=== PATIENT | male | born 1945 | race Caucasian/White ===

== ENCOUNTER → 2023-07-15 07:26 | Outpatient (REF) | payer MEDICARE, SELFPAY ==
[2023-07-15 08:02] LABS: Urine Albumin Negative (Neg - Trace); Urine Bilirubin Negative (Negative); Urine Character Clear (Clear); Urine Color Yellow; Urine Glucose Negative (Negative); Urine Ketone Negative (Negative); Urine Leukocyte Negative (Negative); Urine Nitrite Negative (Negative); Urine Occult Blood Trace (Negative); Urine Specific Gravity 1.015 (<1.030); Urine Urobilinogen Negative (Neg - 1+)
[2023-07-15 08:17] LABS: Urine Red Blood Cell 0-2 /HPF (0-2); Urine White Cell 0-2 /HPF (0-5)
== END ==
LOC: REG 07:26
PROVIDERS: ATTENDING PHYSICIAN Internal Medicine Geriatric Medicine
DX: Z00.00 Encounter for general adult medical examination without abnormal findings (principal); I10 Essential (primary) hypertension; E78.2 Mixed hyperlipidemia; E03.9 Hypothyroidism, unspecified; K21.00 Gastro-esophageal reflux disease with esophagitis, without bleeding; N40.0 Benign prostatic hyperplasia without lower urinary tract symptoms; E55.9 Vitamin D deficiency, unspecified; Z79.899 Other long term (current) drug therapy; Z12.5 Encounter for screening for malignant neoplasm of prostate; Z13.89 Encounter for screening for other disorder; I35.0 Nonrheumatic aortic (valve) stenosis
CPT/HCPCS: 36415; 81003; 81015

== ENCOUNTER → 2023-07-20 10:58 | Outpatient (REF) | payer MEDICARE, SELFPAY | LOC: RCS 10:58 | PROVIDERS: ATTENDING PHYSICIAN Internal Medicine Geriatric Medicine | DX: Z00.00 Encounter for general adult medical examination without abnormal findings (principal); I10 Essential (primary) hypertension; E78.2 Mixed hyperlipidemia; E03.9 Hypothyroidism, unspecified; K21.00 Gastro-esophageal reflux disease with esophagitis, without bleeding; N40.0 Benign prostatic hyperplasia without lower urinary tract symptoms; E55.9 Vitamin D deficiency, unspecified; Z79.899 Other long term (current) drug therapy; Z12.5 Encounter for screening for malignant neoplasm of prostate; Z13.89 Encounter for screening for other disorder; I35.0 Nonrheumatic aortic (valve) stenosis | CPT/HCPCS: 93306 ==

== ENCOUNTER → 2023-07-24 17:08 | Outpatient (REF) | payer MEDICARE, SELFPAY | LOC: RAD 17:08 | PROVIDERS: ATTENDING PHYSICIAN Internal Medicine Geriatric Medicine | DX: R31.9 Hematuria, unspecified (principal) | CPT/HCPCS: 76770 ==

== ENCOUNTER → 2023-07-31 16:37 | Outpatient (REF) | payer MEDICARE, SELFPAY ==
[2023-07-31 17:47] LABS: Urine Albumin Negative (Neg - Trace); Urine Bilirubin Negative (Negative); Urine Character Clear (Clear); Urine Color Yellow; Urine Glucose Negative (Negative); Urine Ketone Negative (Negative); Urine Leukocyte Negative (Negative); Urine Nitrite Negative (Negative); Urine Occult Blood Trace (Negative); Urine Specific Gravity 1.025 (<1.030); Urine Urobilinogen Negative (Neg - 1+)
[2023-07-31 18:07] LABS: Urine Mucus Moderate; Urine Red Blood Cell 0-2 /HPF (0-2); Urine White Cell None Seen /HPF (0-5)
== END ==
LOC: REG 16:37
PROVIDERS: ATTENDING PHYSICIAN Specialist; FAMILY PHYSICIAN Internal Medicine Geriatric Medicine
DX: N39.0 Urinary tract infection, site not specified (principal)
CPT/HCPCS: 81003; 81015; 87086

== ENCOUNTER → 2023-11-27 09:33 | Outpatient (REF) | payer MEDICARE, SELFPAY | LOC: RAD 09:33 | PROVIDERS: ATTENDING PHYSICIAN Nurse Practitioner Family | DX: M54.2 Cervicalgia (principal) | CPT/HCPCS: 72050 ==

== ENCOUNTER → 2023-12-10 09:17 | Outpatient (REF) | payer MEDICARE, SELFPAY | LOC: RAD 09:17 | PROVIDERS: ATTENDING PHYSICIAN Nurse Practitioner Family; FAMILY PHYSICIAN Internal Medicine Geriatric Medicine | DX: R09.89 Other specified symptoms and signs involving the circulatory and respiratory systems (principal) | CPT/HCPCS: 93880 ==

== ENCOUNTER → 2023-12-12 11:24 | Outpatient (REF) | payer MEDICARE, SELFPAY | LOC: RAD 11:24 | PROVIDERS: ATTENDING PHYSICIAN Internal Medicine Endocrinology, Diabetes & Metabolism; FAMILY PHYSICIAN Internal Medicine Geriatric Medicine | DX: E04.2 Nontoxic multinodular goiter (principal) | CPT/HCPCS: 76536 ==

== ENCOUNTER → 2023-12-20 07:32 | Outpatient (REF) | payer MEDICARE, SELFPAY ==
[2023-12-20 08:47] LABS: ALT (SGPT) 25 U/L (0-50); AST (SGOT) 27 U/L (17-59); Albumin 4.6 g/dl (3.5-5.0); Alkaline Phosphatase 100 U/L (38-126); Blood Urea Nitrogen 20 mg/dl (9-20); Calcium 9.9 mg/dl (8.4-10.2); Carbon Dioxide 28 mmol/L (22-30); Chloride 101 mmol/L (98-107); Glucose 102 mg/dl (70-99); Potassium 4.7 mmol/L (3.5-5.1); Sodium 138 mmol/L (135-145); Total Protein 6.9 g/dl (6.3-8.2); eGFR > 60.00
[2023-12-20 09:12] LABS: TSH 1.45 uIU/ml (0.47-4.68)
== END ==
LOC: REG 07:32
PROVIDERS: ATTENDING PHYSICIAN Internal Medicine Endocrinology, Diabetes & Metabolism; FAMILY PHYSICIAN Internal Medicine Geriatric Medicine
DX: E04.2 Nontoxic multinodular goiter (principal)
CPT/HCPCS: 36415; 80053; 84443

== ENCOUNTER 2024-01-18 05:56 | Emergency (ER) | payer MEDICARE, SELFPAY ==
[2024-01-18 06:02] VITALS: BP 146/89
[2024-01-18 06:45] VITALS: BP 139/83
--- NOTE | 2024-01-18 07:20 | ED.GENMED ---
History of Present Illness
General
Chief Complaint: Back Pain
Source: patient and spouse
Time Seen by Provider: 01/18/24 07:07
History of Present Illness
History of Present Illness:
78-year-old male presents to the emergency room complaining of neck pain and pain in the occipital region of his head. Patient's been having symptoms for the past couple months. He has been evaluated by his primary care provider and had an MRI
performed 2 days ago. He does not have the results of the MRI yet. Patient was prescribed a course of steroids which did help for a period of time but now that he is off the steroids the pain has returned. He has been using NSAIDs without
improvement. Patient's states he seemed to have trouble walking at times but he denies any focal weakness numbness or tingling. He has no bowel or bladder dysfunction.
Past History
Past History
ED Past Medical History: None
ED Past Surgical History: None
Social History
Living: with family
Phy Exam
Physical Exam
Physical Exam:
General: Awake, Alert, Oriented X3. No acute distress.
Vitals: unremarkable
Head: Atraumatic
Eyes: Pupils equal, EOMI
Throat: Airway intact, no exudates
Neck: Trachea midline
Lungs: Clear and equal b/l
Heart: Regular rate, no murmurs
Abd: Soft, Nontender, No pulsatile mass
Neuro: Cranial nerves intact, muscle strength equal bilaterally, reflexes equal bilaterally. Not particularly hyperreflexic
Skin: Warm, dry, no rash
Extremities: pulses equal b/l, no edema
Course
Orders/Labs/Results
Orders:
Orders
01/18/24 07:36
CT Head W/o Iv Contrast Urgent
Comment:
Reason For Exam: neck/occipital pain
01/18/24 08:54
Gabapentin [Neurontin] 100 mg PO NOW STA
01/18/24 09:03
Oxycodone [Roxicodone] 5 mg PO NOW STA
Vital Signs
Initial and Last Documented VS:
Initial Vital Signs
Temp Pulse Resp BP Pulse Ox
98 F 81 16 146/89 95
01/18/24 06:02 01/18/24 06:02 01/18/24 06:02 01/18/24 06:02 01/18/24 06:02
Last Documented Vital Signs
Temp Pulse Resp BP Pulse Ox
98 F 69 16 146/88 96
01/18/24 06:02 01/18/24 08:21 01/18/24 08:21 01/18/24 08:21 01/18/24 08:21
MDM/Problems Addressed
Differential Diagnosis Includes:
Cervical radiculopathy, degenerative joint disease of the neck, muscle spasm
MDM/Problems Addressed:
Patient presents with neck and posterior head pain. CT obtained to exclude space-occupying lesion. CT does not show any significant abnormalities. Physical exam does not suggest any cord compression. Patient will be started on gabapentin as well
as a steroid taper. He has an appointment with orthopedics next week.
*Radiology
Radiology exam reviewed: radiology read reviewed
*Pulse Oximetry
Patient hypoxic: no
*Critical Care Note
Total Time (30-74mins, 75-104mins- exclusive of procedures): Not Applicable
ED Attending Note
-
Portions of this chart may have been created with voice recognition software.� Occasional wrong word or��sound alike� substitutions may have occurred due to the inherent limitations of voice recognition software.
Discharge Plan
Departure
Patient Disposition: Home (Routine Discharge)
Date of Disposition: 01/18/24
Time of Disposition: 09:11
Patient with high blood pressure during this ER visit?: Yes
Discharge Problem:
Acute neck pain
Instructions: Neck pain, BLOOD PRESSURE
Prescriptions:
New
gabapentin 100 mg capsule
100 mg PO TID Qty: 90 0RF
oxycodone 5 mg tablet
5 mg PO Q6H PRN (Reason: Pain) Qty: 12 0RF
methylprednisolone [Medrol (Derrick)] 4 mg tablets,dose pack
See Rx Instructions .ROUTE .COMPLEX Qty: 21 0RF
Rx Instructions:
orally per package directions
No Action
atorvastatin 20 mg Tablet
20 mg PO DAILY
Referrals:
Romulo Velazquez MD [Family Provider] -
Interventions
Interventions:
*Risk Screen - Suicide Last Done: 01/18/24 07:13
*General Assessment Last Done: 01/18/24 08:21
*Neglect/Abuse Screening Last Done: 01/18/24 07:13
ED- Fall Risk Assessment Last Done: 01/18/24 08:21
*ED COVID-19 Vaccine History Last Done: 01/18/24 08:24
*Nursing Disposition Last Done: 01/18/24 09:42
ED-Musculoskeletal Assessment Last Done: 01/18/24 07:13
Discharge Date and Time
Discharge Date/Time: 01/18/24 09:42
Print Language: THAI
[2024-01-18 08:20] VITALS: BMI 22.4
[2024-01-18 08:21] VITALS: BP 146/88
[2024-01-18] MEDS: ROXICODONE 5 MG PO (09:06)
[2024-01-18] MEDS: NEURONTIN 100 MG PO (09:06)
== END 2024-01-18 09:42 | disposition home or self-care (01) ==
LOC: EMR 05:56
PROVIDERS: EMERGENCY PHYSICIAN Emergency Medicine; FAMILY PHYSICIAN Internal Medicine Geriatric Medicine
DX: M54.2 Cervicalgia (principal); R51.9 Headache, unspecified; R26.2 Difficulty in walking, not elsewhere classified; R03.0 Elevated blood-pressure reading, without diagnosis of hypertension
CPT/HCPCS: 99284; 70450

== ENCOUNTER 2024-01-25 18:18 | Inpatient (IN) | payer MEDICARE, SELFPAY ==
[2024-01-25] VITALS (13 sets, daily range): BP systolic 113–151; BP diastolic 65–85; PULSE 58–64; O2SAT 95; BMI 21.2; BMI 20.5
[2024-01-25 14:27] LABS: % Basophils 0.5 % (0-2); % Eosinophils 0.5 % (0-6); % Immature Granulocytes 0.7 % (0-0.5); % Lymphocytes 8.3 % (20.5-51.1); % Monocytes 5.2 % (1.7-9.3); % Neutrophils 84.8 % (42.2-75.2); ALT (SGPT) 18 U/L (0-50); AST (SGOT) 18 U/L (17-59); Absolute Basophils 0.1 10^3/uL (0-0.2); Absolute Eosinophils 0.1 10^3/uL (0-0.7); Absolute Immature Granulocytes 0.1 10^3/uL (0-0.05); Absolute Lymphocytes 0.9 10^3/uL (1.2-3.4); Absolute Monocytes 0.6 10^3/uL (0.1-0.6); Absolute Neutrophils 9.4 10^3/uL (1.4-6.5); Albumin 4.8 g/dl (3.5-5.0); Alkaline Phosphatase 62 U/L (38-126); Blood Urea Nitrogen 26 mg/dl (9-20); Calcium 10.3 mg/dl (8.4-10.2); Carbon Dioxide 28 mmol/L (22-30); Chloride 90 mmol/L (98-107); Glucose 160 mg/dl (70-99); Hematocrit 45.7 % (39.0-52.0); Hemoglobin 16.8 g/dL (13.0-18.0); Mean Corp Hgb Conc. 36.8 g/dL (33.0-37.0); Mean Corpuscular Hgb 33.1 pg (27.0-31.0); Mean Corpuscular Volume 90.1 fL (80.0-94.0); Mean Platelet Volume 8.9 fL (7.4-10.4); Nucleated Red Blood Cells % 0 % (-); Platelet Count 277 10^3/uL (130-400); Potassium 4.7 mmol/L (3.5-5.1); Red Blood Cell Count 5.07 10^6/uL (4.70-6.10); Red Cell Dist. Width 12.1 % (11.5-14.5); Sodium 132 mmol/L (135-145); Total Bilirubin 1.3 mg/dl (0.2-1.3); Total Protein 7.1 g/dl (6.3-8.2); eGFR > 60.00
--- NOTE | 2024-01-25 14:42 | ED.GENMED ---
History of Present Illness
General
Chief Complaint: Weakness
Source: patient and spouse
Exam Limitations: none
Time Seen by Provider: 01/25/24 14:41
Nursing documentation reviewed up to this point in time: agreed with
History of Present Illness
History of Present Illness:
The patient is an 78-year-old man with a past medical history of elevated cholesterol and chronic neck pain for which he is followed by orthopedics and due to have a steroid injection in his neck this coming up week, who is brought in by his
for about 2 weeks of generalized weakness and unsteadiness. His reports this is extremely unusual for him as she reports they generally walk over 3 miles a day and lift weights about 3 times per week. They deny any specific fever, cough,
chest pain, or shortness of breath. They report they have tested him for COVID twice and the tests have been negative. He denies any specific areas of pain with the exception of his neck which he has had for several weeks to months. His
reports she was concerned because this morning he was extremely unsteady and nearly fell down to the ground. Patient reports that when he stands up he feels lightheaded but has not yet passed out. His is concerned he may be dehydrated. His
reports that he was recently given gabapentin and oxycodone for his neck pain and is wondering if this is causing him to be more unsteady and weak. Patient also reports feeling previously nauseous early this morning and using 1 dose of Zofran.
Patient also reports he has had a decreased appetite and does not know why. Patient just had a CT head done about a week ago for similar symptoms and there was no acute findings found. Contrary to triage note, patient denies any blurred vision.
Past History
Past History
ED Past Medical History: Hypothyroidism
ED Past Surgical History: Other
Social History
Tobacco: Other
Alcohol: Other
Drug: None
Personal:
Living: with family
Employment: Other
Family History
Family History: Other
Review of Systems
Review of Systems
Allergies reviewed?: Yes
Other source history: family
All Other Systems: ROS reviewed and negative except as documented in HPI and ROS
Constitutional: Reports fatigue
EENT: Reports no symptoms
Respiratory: Reports no symptoms
Cardiac: Reports syncope (Presyncopal)
ABD/GI: Reports nausea and anorexia
: Reports no symptoms
Musculoskeletal: Reports neck pain
Skin: Reports no symptoms
Neurological: Reports dizzy (Unsteady)
Endocrine: Reports no symptoms
Hematologic/Lymphatic: Reports no symptoms
Psychiatric: Reports no symptoms
Phy Exam
Physical Exam
Physical Exam:
Physical Exam
General: no apparent distress, not acutely ill
Neck: supple. no meningeal signs. normal psoterior pharynx
Heart: s1/s2 regular rate and rhythm, no murmur. equal radial pulses.
Lungs: no acute respiratory distress. clear bilaterally
Abdomen: normal bowel sounds. not tender. no CVAT
Neuro: alert and orientedx2. 5 out of 5 strength in all extremities without drift. Mild difficulty with [id number] but able to do it successfully
Skin: no rash
Psychiatric: well kept. interactive and cooperative
Extremities: no edema. no calf tenderness. negative homans. good distal pulses
Course
Orders/Labs/Results
Orders:
Orders
01/25/24 14:02
Electrocardiogram (*1) Urgent
Reason for Study: Chest Pain
EKG- Treatment ONCE
01/25/24 14:04
Complete Blood Count/With Diff Urgent
Comprehensive Metabolic Panel Urgent
TSH Urgent
Comment: ADD ON
01/25/24 15:17
Add On- LAB Urgent
Tests Added?: TSH
01/25/24 15:18
Orthostatic VS- Treatment ONCE
Pt Eval And Treat Urgent
Activity Level: Out of Bed-Early Mobility
08/31/24 15:23
Urinalysis Reflex To Culture Urgent
Date Specimen was Collected: 01/25/24
Time Specimen was Collected: 15:23
Urine Microscopic Reflex Cult Urgent
01/25/24 15:26
0.9% Sodium Chloride 1000 ml [Nss] 1,000 ml IV BOLUS
CR Chest - 2 Views Urgent
Comment:
Reason For Exam: fatigue
Abnormal Lab Results
01/25/24 01/25/24
14:04 15:23
WBC 11.0 H 10^3/uL
(4.8-10.8)
MCH 33.1 H pg
(27.0-31.0)
Abs Immat Gran (auto) 0.1 H 10^3/uL
(0-0.05)
Absolute Neuts (auto) 9.4 H 10^3/uL
(1.4-6.5)
Absolute Lymphs (auto) 0.9 L 10^3/uL
(1.2-3.4)
Immature Gran % 0.7 H %
(0-0.5)
Neutrophils % 84.8 H %
(42.2-75.2)
Lymphocytes % 8.3 L %
(20.5-51.1)
Sodium 132 L mmol/L
(135-145)
Chloride 90 L mmol/L
(98-107)
BUN 26 H mg/dl
(9-20)
Glucose 160 H mg/dl
(70-99)
Calcium 10.3 H mg/dl
(8.4-10.2)
Urine Bilirubin 1+ A
(Negative)
Urine Bacteria (Reflex) Few A
(Negative)
Urine Albumin (Reflex) 1+ A
(Neg - Trace)
01/25/24 14:04
01/25/24 14:04
Vital Signs
Initial and Last Documented VS:
Initial Vital Signs
Temp Pulse Resp BP Pulse Ox
97.7 F 63 20 138/74 98
01/25/24 13:58 01/25/24 13:58 01/25/24 13:58 01/25/24 13:58 01/25/24 13:58
Last Documented Vital Signs
Temp Pulse Resp BP Pulse Ox
97.7 F 52 16 138/74 96
01/25/24 13:58 01/25/24 14:15 01/25/24 14:15 01/25/24 13:58 01/25/24 14:15
MDM/Problems Addressed
Differential Diagnosis Includes:
Acute dehydration, UTI, COVID, pneumonia, malignancy, CVA
MDM/Problems Addressed:
Patient presents with acute generalized weakness and unsteadiness
*Radiology
Radiology exam reviewed: preliminary read by ED provider (Chest x-ray reviewed by me. No acute disease)
*Pulse Oximetry
Patient hypoxic: no
*EKG
Interpreted by ED Provider?: Yes
Interpretation: abnormal
Comparison EKG: no comparison EKG present
Rate: normal
Rhythm: sinus
[place]: left axis deviation
Interval: normal interval
QRS Pattern: normal QRS
Ischemia: non-specific ST changes
*M[place] Interpretation
Rate: normal
Interpretation: normal
Rhythm: sinus
*Critical Care Note
Total Time (30-74mins, 75-104mins- exclusive of procedures): Not Applicable
Data Reviewed
Review of Other/Old Records Reveals: Radiology Studies (CT head reviewed from 01/18/2024 which shows no acute disease)
Source: patient and spouse
Patient Management
Social determinants of health affecting care: Living situation and Strong social support
Discussion with other providers: Hospitalist and Other (Physical therapy)
Escalation/DeEscalation of care consider admission/obs:
Given patient's ongoing unsteadiness on his feet and ataxia, which is very different than his baseline, decision made to admit the patient for further neurological workup.
Update Note
Update Note:
5:00 PM patient's lab work suggest some degree of dehydration, however, there is no sign of pneumonia or urinary tract infection. Patient remains unsteady with walking. Physical therapy agrees that he is not safe walking independently, which is a
definite change from his baseline. Patient does had a CT head done about a week ago which showed no acute disease. I feel patient will likely need an MRI brain and a neurological consult.
ED Attending Note
-
Portions of this chart may have been created with voice recognition software.� Occasional wrong word or��sound alike� substitutions may have occurred due to the inherent limitations of voice recognition software.
Discharge Plan
Departure
Patient Disposition: Admit
Date of Disposition: 01/25/24
Time of Disposition: 17:06
Admit to: Med/Surg
Presentation/result/management discussed w/ accepting MD/DO: Hospitalist
Patient with high blood pressure during this ER visit?: Yes
Condition: Good
Covid-19: Not Applicable
Discharge Problem:
Generalized weakness, Acute anorexia, Acute dehydration, Acute ataxia
Prescriptions:
No Action
atorvastatin 20 mg Tablet
20 mg PO DAILY
gabapentin 100 mg capsule
100 mg PO TID Qty: 90 0RF
oxycodone 5 mg tablet
5 mg PO Q6H PRN (Reason: Pain) Qty: 12 0RF
methylprednisolone [Medrol (Derrick)] 4 mg tablets,dose pack
See Rx Instructions .ROUTE .COMPLEX Qty: 21 0RF
Rx Instructions:
orally per package directions
Referrals:
Romulo Velazquez MD [Family Provider] -
Interventions
Interventions:
*Risk Screen - Suicide Last Done: 01/25/24 13:58
*General Assessment Last Done: 01/25/24 13:58
*Neglect/Abuse Screening Last Done: 01/25/24 13:58
Discharge Date and Time
Print Language: TANZANIAN
[2024-01-25 15:36] LABS: Urine Albumin 1+ (Neg - Trace); Urine Bilirubin 1+ (Negative); Urine Character Slightly Cloudy (Clear); Urine Color Yellow; Urine Glucose Negative (Negative); Urine Ketone Negative (Negative); Urine Leukocyte Negative (Negative); Urine Nitrite Negative (Negative); Urine Occult Blood Negative (Negative); Urine Specific Gravity 1.025 (<1.030); Urine Urobilinogen 1+ (Neg - 1+)
[2024-01-25 15:46] LABS: Urine Bacteria Few (Negative); Urine Mucus Many; Urine Red Blood Cell 0-2 /HPF (0-2); Urine Squamous Cell 0-2 /LPF (Few)
[2024-01-25 16:39] LABS: TSH 1.68 uIU/ml (0.47-4.68)
[2024-01-25] MEDS: NSS 1000 IV (17:07)
--- NOTE | 2024-01-25 18:12 | HPS.HSE ---
Family Physician
-
Family Physician: Romulo Velazquez
Chief Complaint
-
balance issues, weakness
History of Present Illness
Patient is a 78-year-old male with past medical history of hyperlipidemia, cervical spine degenerative joint disease, thyroid nodule, former smoker came to ER for having worsening balance issue. For last 2 weeks patient has been having poor
appetite and generalized weakness. During the morning patient was having difficult time walking around and per spouse was leaning right side. Patient has some dizziness although denies vertigo-like symptoms. No associated nausea/vomiting/double
vision. Patient denies of having previous history of stroke. Had an outpatient carotid Doppler in November and did not show any critical narrowing. Patient also had some neck pain ongoing with no upper or lower extremity sensory changes. An
outpatient MRI C-spine was showing foraminal narrowing with moderate canal stenosis without any signs of cord compression.
No sob/chest pain/palpitation/abd pain/nausea/vomiting/diarrhea
Medical History
Past Medical History
Past Medical History: Reports Other
Additional Past Medical History:
hyperlipidemia, cervical spine degenerative joint disease, thyroid nodule, former smoker
Past Surgical History: Reports Other
Social History
Tobacco: Former Smoker
Alcohol: None
Drug: None
Personal:
Living: With Family
Family History
Family History: Not pertinent
Allergies / Home Medications
Allergies reflects when Allergies were last updated in [facility].
Home Medications with original date entered in [facility]
Allergy/Medication List:
Allergies
Allergy/AdvReac Type Severity Reaction Status Date / Time
No Known Allergies Allergy Verified 01/25/24 14:02
Home Medications
atorvastatin 20 mg tablet 20 mg PO DAILY 01/01/23
acetaminophen 500 mg tablet (Tylenol Extra Strength) 1,000 mg PO Q6HPRN PRN mild pain 01/25/24
oxycodone 5 mg tablet 5 mg PO Q6HPRN PRN Pain 01/25/24
Review of Systems
-
A 12 point ROS was completed and negative except as noted: Yes
Physical Exam
Vital Signs
Vital Signs
Temp Pulse Resp BP Pulse Ox
97.7 F 52 16 138/74 96
01/25/24 13:58 01/25/24 14:15 01/25/24 14:15 01/25/24 13:58 01/25/24 14:15
Physical Exam
General: No Apparent Distress
HEENT: No Oxygen
Respiratory: Clear
Cardiac: S1/S2 and Regular Rhythm; No Murmur or Rub
GI: Soft, Non Tender, Non Distended and Normal Bowel Sounds; No Organomegaly
Rectal: Deferred by Provider
Musculoskeletal: No Clubbing, No Cyanosis and No Edema
Skin: No Rash
Neuro: Awake, Alert, Oriented and Nonfocal/grossly intact
Laboratory Results
-
01/25/24 14:04
01/25/24 14:04
Laboratory Results
Total Bilirubin 1.3 mg/dl (0.2-1.3) 01/25/24 14:04
AST 18 U/L (17-59) 01/25/24 14:04
ALT 18 U/L (0-50) 01/25/24 14:04
Alkaline Phosphatase 62 U/L (38-126) 01/25/24 14:04
Data Reviewed
-
Lab Data: Labs Reviewed by me, Discussed with Patient and Discussed with Family
Impression/Plan
-
1. Acute ataxia
-New onset of ataxia today on top of some slowly developing weakness for last 2 weeks.
-No nystagmus/vertigo/dizziness. some difficulty doing finger nose test on both sides.
-Denies previous history of stroke
-Carotid Doppler in December 17 was negative
-No history of diabetes. Former smoker
-CT head without contrast earlier week was negative.
-MRI brain with and without contrast ordered
-Check TSH/B12/folate/ESR level
-Check lipid profie/Hbga1c
-PT OT evaluation
-Neurology evaluation requested
2. Thyroid nodule
-Patient had been discharged by endocrinology
-Nodule biopsy in 23 was negative for any malignancy
-Check TSH free T4
3. Hyperlipidemia
-Maintained on atorvastatin
4. Generalized weakness
-UA negative. Chest x-ray clear. No clear signs of infection
-COVID-negative
DVT prophylaxis -SCD
Full code
Total time spent : 78 mins
I personally saw and examined the patient.
I have reviewed all diagnostic interpretations and treatment plans as written.
Time includes patient management by me, time spent at the patients bedside, time to review lab and imaging results, discussing patient care, documentation in the medical record, and time spent with the family or caregiver and discussing care plan
with RN/Consultants.
[2024-01-25] MEDS: TYLENOL 650 MG PO (19:27)
[2024-01-25 20:14] LABS: COVID-19 Antigen Negative (Negative)
[2024-01-26] VITALS (8 sets, daily range): BP systolic 114–142; BP diastolic 61–85; PULSE 63–80; O2SAT 97; BMI 20.5
--- NOTE | 2024-01-26 03:05 | PTCARENOTE ---
01/25/2024 - PT admitted to room 2131 from ED @ approx 20:40. PT trasferred from stretcher to bed with max assist. PT oriented to room, call andrews, plan of care discussed. PT AAOX3 and able to participate in admission questions and swallowing
evaluation. Tele monitor #31 placed and reading in the 60's. Placed bed alarm for PT safety. Assessment as documented.
[2024-01-26] MEDS: LOW STRENGTH ASPIRIN 81 MG PO (08:43)
[2024-01-26] MEDS: LIPITOR 20 MG PO (08:43)
[2024-01-26] MEDS: TYLENOL 1000 MG PO ×2 (08:47→20:24)
--- NOTE | 2024-01-26 09:19 | CON.NEURO ---
Neuro Assessment/Plan
Assessment
Subacute onset of lightheadedness and gait dysfunction, worsening 1 day after new prescriptions including oxycodone and gabapentin.
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 If truly subacute, differential diagnosis would include paraneoplastic changes although this is unlikely based on the patient's prior lower functioning than first suggested.
Plan
await MRI of brain results (completed and fails to demonstrate an acute abnormality)
consider lumbar puncture based on MRI of brain results
with reported weight loss, consider additional evaluation
Continue physical therapy evaluation with occupational therapy and speech therapy for cognitive testing
Check blood work for potential metabolic abnormalities
Agree with thiamine replacement
Will follow pending results
Consultation
Order
Date of Consultation: 01/26/24
Requesting Provider: Hospitalists
Reason for Consult: Gait dysfunction
Subjective/Objective
Subjective Data
Date of Service: January 26, 2024
Right-Handed
Patient presented to this [facility] emergency department with a 2-week history of generalized weakness and unsteadiness. The patient's gait was described as profoundly worse on the day of admission, yesterday, with the patient nearly falling to
the ground. He also reported a sense of lightheadedness with sitting to standing body position change. The patient was evaluated by his primary care provider due to lingering pain in the neck 2 weeks ago at which time MRI of the cervical spine was
prescribed as well as MRI of the brain with and without contrast. Instead, CT of the head was performed on January 18, 2024 which was unremarkable.
Patient's neck pain was described, according to medical records, as beginning in October 2023 with neck pain radiating into the head time there was absence of radiation of neck pain into the arms as well as absence of numbness or tingling.
Patient has a history of cervical radiculitis for which oxycodone and gabapentin were prescribed the day before admission.
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
Patient's history is different than the medical record. He indicates he presented for difficulty with recall and performance of conversations.
Objective Data
Vital Signs
Temp Pulse Resp BP Pulse Ox
37.1 C 63 16 140/79 95
01/26/24 07:20 01/26/24 07:20 01/26/24 07:20 01/26/24 07:20 01/26/24 07:20
Sodium 132 mmol/L (135-145) L 01/25/24 14:04
Potassium 4.7 mmol/L (3.5-5.1) 01/25/24 14:04
BUN 26 mg/dl (9-20) H 01/25/24 14:04
Glucose 160 mg/dl (70-99) H 01/25/24 14:04
Calcium 10.3 mg/dl (8.4-10.2) H 01/25/24 14:04
Patient Allergies
No Known Allergies Allergy (Verified 01/25/24 14:02)
Review of Systems
-
Unable to obtain full review of systems at this time due to: Dementia
History Source: Patient
All other systems: Reviewed and negative
Constitutional: Weight Loss (5 kg)
EENT: Negative Swallowing Difficulty
Abdomen/GI: Negative Incontinence of Stool
Genitourinary: Negative Incontinence
Neuro: Negative Dizzy or Headache
Physical Exam
-
General: No Apparent Distress and Appears Stated Age
Eyes: OU Absent Papilledema, Round OU, [place] Conjunctivae and No Ptosis
HEENT: Anicteric and Moist Mucous Membranes
Neck: Full Range of Motion
Respiratory: No Dyspnea
Cardiac: No JVD
GI: Non-distended
Skin: Unremarkable
Extremities: No Clubbing, No Cyanosis and No Edema
Psych: Negative Intact Judgement/Insight
Extended Neurological Exam
Mood & Affect: Depressed
Attention Span & Concentration: Awake, Alert, Interactive and Moderate Difficulty with 2 Step Request
Memory: Reduced (for holiday order) and Vague
Tremor: Hand Tremor Absent and Head Tremor Absent
Involuntary Movement: None
Speech: Quality Unremarkable and Quantity Unremarkable
Cranial Nerve II: Left Eye: Pupillary Reactivity Unremarkable, Pupillary Size Unremarkable and Visual [place] Intact
Cranial Nerve II: Right Eye: Pupillary Reactivity Unremarkable, Pupillary Size Unremarkable and Visual [place] Intact
Cranial Nerves III, IV, : Extraocular Movement: Other (reduced conjugate gaze with upgaze)
Cranial Nerve VII: Facial Symmetry: Normal Facial Symmetry
Cranial Nerve VIII: Hearing: Unremarkable Hearing to Normal Conversational Volume
Cranial Nerves IX, X: Palate Movement: Palate Elevation Symmetric
Cranial Nerve XI: Shoulder Shrug: Unremarkable
Cranial Nerve XII: Tongue Protusion: Midline
Muscle Strength, Overall: Full Throughout
Muscle Bulk & Tone: Bulk Unremarkable and Tone Unremarkable
Pronator Drift: No Drift in Upper Extremities and No Drift in Lower Extremities
Deep Tendon Reflexes: Unremarkable Throughout
Touch Sensation: Unremarkable
Coordination: [id number]-[id number] Testing Unremarkable
Babinski Sign: Absent Bilaterally
Gait & Station: Romberg Test Negative
Data Reviewed
-
CT Head: Report Reviewed and Image Reviewed
MRI Head: Report Reviewed and Image Reviewed
MRI Cervical Spine: Report Reviewed (January 16, 2024 foraminal stenosis C4-5)
Labs: Ordered and Report Reviewed
Reviewed with: Physician and Patient
Old Records: Summarized
Medications
-
Active Medications
Generic Name Dose Route Start Last Admin
Trade Name Freq PRN Reason Stop Dose Admin
Acetaminophen 1,000 mg 01/25/24 21:06 01/26/24 08:47
Acetaminophen 500 Mg Tablet PO 02/22/24 21:05 1,000 mg
Q6HPRN PRN Administration
TRENT, mild pain, T >100.4F
Aspirin 81 mg 01/26/24 08:00 01/26/24 08:43
Aspirin 81 Mg Chewable Tablet PO 02/23/24 07:59 81 mg
DAILY UMAIR Administration
Atorvastatin Calcium 20 mg 01/26/24 08:00 01/26/24 08:43
Atorvastatin (Lipitor) 20 Mg Tablet PO 02/23/24 07:59 20 mg
DAILY UMAIR Administration
Home Medications
�Medication �Instructions �Recorded
atorvastatin 20 mg tablet 20 mg PO DAILY 01/01/23
acetaminophen 500 mg tablet 1,000 mg PO Q6HPRN PRN mild pain 01/25/24
(Tylenol Extra Strength)
oxycodone 5 mg tablet 5 mg PO Q6HPRN PRN Pain 01/25/24
Past History
Past History
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
BPH)
ED Past Surgical History: Appendectomy and Other (Right lobe thyroid resection)
Social History
Tobacco: Other
Alcohol: Other
Drug: None
Personal:
Living: with family
Employment: Other
Family History
Family History: Other (Reviewed and noncontributory)
[2024-01-26 10:07] LABS: Blood Urea Nitrogen 18 mg/dl (9-20); Calcium 9.4 mg/dl (8.4-10.2); Carbon Dioxide 28 mmol/L (22-30); Chloride 94 mmol/L (98-107); Estimated Creatinine Clearance 62 ml/min; Glucose 86 mg/dl (70-99); HDL Cholesterol 43 mg/dl; LDL Cholesterol, Calculated 56 mg/dl; Potassium 3.9 mmol/L (3.5-5.1); Sodium 133 mmol/L (135-145); Total Cholesterol 121 mg/dl (50-199); Triglyceride 110 mg/dl (10-149); Very Low Density Lipoprotein 22 mg/dl (0-30); eGFR > 60.00
[2024-01-26 10:23] LABS: Free T4 1.69 ng/dl (0.78-2.19)
[2024-01-26] MEDS: THIAMINE INJECTION 200 MG IV ×2 (11:02→17:46)
[2024-01-26 11:13] LABS: Folate 16.7 ng/ml (2.76-20); Vitamin B12 439 pg/ml (239-931)
--- NOTE | 2024-01-26 12:22 | W.PN.HOSP.TC ---
Today's Communication/Plan
-
f/u MRI report
BCAT scoring
continue PT as tolerated
Assessment / Plan
Assessment / Plan
1. Acute ataxia
-New onset of ataxia today on top of some slowly developing weakness for last 2 weeks.
-No nystagmus/vertigo/dizziness. some difficulty doing finger nose test on both sides.
-Denies previous history of stroke
-Carotid Doppler in December 17 was negative
-No history of diabetes. Former smoker
-CT head without contrast earlier week was negative.
-MRI brain with and without contrast images reviewed, some diffuse lesion on FLAIR sequence, wait for official read.
-TSH/B12/Folate wnl.
-Patient needing help with doing simple things. Leaning toward right on ambulation. PT recommended skilled rehab
-Patient also having some cognition changes. OT is planning to do a BCAT scoring on next visit.
-Will require LP to r/o pleocytosis/infections pathology if MRI neg.
2. Thyroid nodule
-Patient had been discharged by endocrinology
-Nodule biopsy in was negative for any malignancy
-TSH/FT4 WNL
3. Hyperlipidemia
-Maintained on atorvastatin
4. Generalized weakness
-UA negative. Chest x-ray clear. No clear signs of infection
-COVID-negative
DVT prophylaxis -SCD
Full code
Care plan discussed with neurology.
Total time spent : 55 mins
I personally saw and examined the patient.
I have reviewed all diagnostic interpretations and treatment plans as written.
Time includes patient management by me, time spent at the patients bedside, time to review lab and imaging results, discussing patient care, documentation in the medical record, and time spent with the family or caregiver and discussing care plan
with RN/Consultants.
Anticipated Discharge: 24 - 48 hours
Subjective/Interval History
-
Date of Service: January 26, 2024
Patient continues to have flat affect
slow to response to command and difficulty following simple commands
at point patient is impulsive and try to get out of bed
Objective Data
-
Labs:
Laboratory Results
01/26/24
08:00
WBC Pending
Hgb Pending
Hct Pending
Plt Count Pending
Sodium 133 L
Potassium 3.9
Chloride 94 L
Carbon Dioxide 28
BUN 18
Creatinine 0.9
Glucose 86
Calcium 9.4
Vital Signs:
Vital Signs
Temp Pulse Resp BP Pulse Ox
98.7 F 63 16 140/79 98
01/26/24 07:20 01/26/24 07:20 01/26/24 11:28 01/26/24 07:20 01/26/24 11:28
Review of Systems
-
Respiratory: Reports No Symptoms
Cardiac: Reports No Symptoms
Abdomen/GI: Reports No Symptoms
Physical Exam
-
General: No Apparent Distress and Comfortable
HEENT: Negative Oxygen
Respiratory: Clear to Auscultation
Cardiac: Regular Rhythm and S1/S2; Negative Murmur or Rub
GI: Soft, Nontender, Nondistended and Normal Bowel Sounds
Musculoskeletal: No Edema
Neuro: Awake, Alert, Oriented (Bradyphrenic) and Other (Leanig right on ambulation)
Psych: Calm
--- NOTE | 2024-01-26 13:09 | PTOTSP ---
ST Dysphagia Evaluation
Oropharyngeal function appears intact at the bedside; MRI (-)
Pt received awake/alert sitting upright in bed. Spouse present at the bedside. Self fed trials of puree, regular solids and thin liquids. Demo functional mastication and clear oral cavity visualized post swallow. Thin liquids by straw sip swallow
appears prompt. No overt s/sx of aspiration observed.
Speech is fluent/intelligible in conversation. Answering open ended questions and follows 1-2 step commands. Voice is clear. Per pt and spouse report speech/language is at baseline however prior to admission spouse has noticed the overall volume of
his voice is decreased
Recommendations
1. Continue regular solids/thin liquids
2. Meds oral per pt preference and RN discretion
3. No further acute [facility] PSYCHOLOG[facility] needs may consider follow up with speech as outpatient for voice if issue persists
--- NOTE | 2024-01-26 13:38 | CM ---
Reviewed the chart notes and spoke with the patient and spouse at the bedside. Patient is admitted under observational status. [facility] letter provided and explained. The patient nor spouse had any additional questions.
The patient resides with his spouse in a two story home with firs floor master suite. There are two steps to enter. No DME/VN/SNF in the past. [facility]acy confirmed [facility]. CM continues to be available to patient/family and is
monitoring medical plan for needs at discharge.
Plan: Discharge to home when medically stable. No anticipated needs being identified at this time.
[2024-01-26 13:57] LABS: Hematocrit 43.1 % (39.0-52.0); Hemoglobin 15.7 g/dL (13.0-18.0); Mean Corp Hgb Conc. 36.4 g/dL (33.0-37.0); Mean Corpuscular Hgb 33.8 pg (27.0-31.0); Mean Corpuscular Volume 92.9 fL (80.0-94.0); Mean Platelet Volume 8.8 fL (7.4-10.4); Platelet Count 224 10^3/uL (130-400); Red Blood Cell Count 4.64 10^6/uL (4.70-6.10); Red Cell Dist. Width 12.1 % (11.5-14.5); White Blood Cell Count 13.4 10^3/uL (4.8-10.8)
[2024-01-26 14:48] LABS: Erythrocyte Sed Rate 6 mm/hour (0-20)
[2024-01-27] MEDS: THIAMINE INJECTION 200 MG IV (02:19)
[2024-01-27 03:43] VITALS: BP 143/78
[2024-01-27 06:00] VITALS: BMI 20.5
[2024-01-27 07:30] VITALS: BP 136/87
[2024-01-27] MEDS: LOW STRENGTH ASPIRIN 81 MG PO (07:33)
[2024-01-27] MEDS: LIPITOR 20 MG PO (07:33)
[2024-01-27 11:10] VITALS: BP 128/70
--- NOTE | 2024-01-27 12:32 | W.PN.UPDATE ---
Update Note
Progress Note Update
I saw and evaluated the patient. I reviewed the resident�s note and agree with findings and plan as documented in the resident�s note.
Continues to feel lethargic and weak, balance remains off.
Episode of nausea/vomiting last night.
1. Acute ataxia
-New onset of ataxia today on top of some slowly developing weakness for last 2 weeks.
-No nystagmus/vertigo/dizziness. some difficulty doing finger nose test on both sides.
-Denies previous history of stroke
-Carotid Doppler in December 17 was negative
-No history of diabetes. Former smoker
-CT head without contrast earlier week was negative.
-MRI brain with and without contrast negative for any abnormal findings.
-TSH/B12/Folate wnl.
-Patient needing help with doing simple things. Leaning toward right on ambulation. PT recommended skilled rehab
-Patient also having some cognition changes. OT is planning to do a BCAT scoring on next visit.
-LP ordered for further testing .
2. Thyroid nodule
-Patient had been discharged by endocrinology
-Nodule biopsy in was negative for any malignancy
-TSH/FT4 WNL
3. Hyperlipidemia
-Maintained on atorvastatin
4. Generalized weakness
-UA negative. Chest x-ray clear. No clear signs of infection
-COVID-negative
DVT prophylaxis -SCD
Full code
Total time spent : 52 mins
I personally saw and examined the patient.
I have reviewed all diagnostic interpretations and treatment plans as written.
Time includes patient management by me, time spent at the patients bedside, time to review lab and imaging results, discussing patient care, documentation in the medical record, and time spent with the family or caregiver and discussing care plan
with RN/Consultants.
--- NOTE | 2024-01-27 13:46 | W.PN.HOSP.TC ---
Today's Communication/Plan
-
Planned lumbar puncture today.
Continue with PT/OT
Continue speech therapy
Follow-up with neurology
Assessment / Plan
Assessment / Plan
Ataxia
-New onset of ataxia today on top of some slowly developing weakness for last 2 weeks.
-No nystagmus/vertigo/dizziness. some difficulty doing finger nose test on both sides.
-Denies previous history of stroke
-Carotid Doppler in December 17 was negative
-No history of diabetes. Former smoker
-CT head without contrast earlier week was negative.
-MRI brain with and without contrast images reviewed, some diffuse lesion on FLAIR sequence, wait for official read.
-TSH/B12/Folate wnl.
-Patient needing help with doing simple things. Leaning toward right on ambulation. PT recommended skilled rehab
-Patient also having some cognition changes. OT is planning to do a BCAT scoring on next visit.
-Will need to do Lumbar puncture
Thyroid nodule
-Patient had been discharged by endocrinology
-Nodule biopsy in was negative for any malignancy
-TSH/FT4 WNL
Hyperlipidemia
-Maintained on atorvastatin
Generalized weakness
-UA negative. Chest x-ray clear. No clear signs of infection
-COVID-negative
Anticipated Discharge: 24 - 48 hours
Subjective/Interval History
-
Date of Service: January 27, 2024
Patient states that balance is still off. Patient had 1 episode of vomiting last night.
Objective Data
-
Vital Signs:
Vital Signs
Temp Pulse Resp BP Pulse Ox
98.1 F 61 16 128/70 95
01/27/24 11:10 01/27/24 11:10 01/27/24 11:10 01/27/24 11:10 01/27/24 11:10
I&O
09/01/24 09/02/24 09/03/24
06:59 06:59 06:59
Intake Total 1080 / 1080
Balance 1080 / 1080
Review of Systems
-
History Source: Patient
All other systems: Reviewed and negative
Neuro: Reports Ataxia
Physical Exam
-
General: Well Developed and No Apparent Distress
HEENT: Normocephalic and Atraumatic
Respiratory: Clear to Auscultation
Cardiac: Regular Rhythm and S1/S2
GI: Soft, Nontender and Nondistended
Musculoskeletal: Other
Skin: Warm and Dry
Neuro: Awake, Alert and Oriented
Psych: Calm
Data Reviewed
-
Labs: Labs Reviewed by me and Discussed with Physician
[2024-01-27 15:20] VITALS: BP 132/68
--- NOTE | 2024-01-27 16:17 | W.PN.NEURO.1 ---
Today's Communication / Plan
-
Will await MRI Lumbar spine
Spinal tap and removal of 40-50 cc CSF
Neuro Assessment/Plan
Assessment
78 yr. old male with h/o lightheadedness confusion and ataxia since November 2023. Worse over the last week, exacerbated after starting new prescriptions including oxycodone and gabapentin.
Most likely underlying dementia. This most likely represents Normal pressure hydrocephalus given history exam and CT finding of ventricular dilation
paraneoplastic process is unlikely based on the patient's prior functioning with MRI head changes of small vessel disease.
Plan
Lumbar puncture based on MRI of brain results
Check Gait after removal of 40-50 cc Spinal fluid
Continue physical therapy evaluation with occupational therapy and speech therapy for cognitive testing
Check blood work for potential metabolic abnormalities
Will follow pending results
Subjective/Objective
Subjective Data
Date of Service: January 27, 2024
Pat continues to be bedbound. Awake answers questions But slow
Objective Data
Vital Signs
Temp Pulse Resp BP Pulse Ox
36.7 C 61 16 132/68 98
01/27/24 15:20 01/27/24 15:20 01/27/24 15:20 01/27/24 15:20 01/27/24 15:20
Lab Results
01/26/24 13:48
01/26/24 08:00
Sodium 133 mmol/L (135-145) L 01/26/24 08:00
Potassium 3.9 mmol/L (3.5-5.1) 01/26/24 08:00
BUN 18 mg/dl (9-20) 01/26/24 08:00
Glucose 86 mg/dl (70-99) 01/26/24 08:00
Calcium 9.4 mg/dl (8.4-10.2) 01/26/24 08:00
LDL Cholesterol, Calc 56 mg/dl 01/26/24 08:00
Vitamin B12 439 pg/ml (421-871) 01/26/24 08:00
Patient Allergies
No Known Allergies Allergy (Verified 01/25/24 14:02)
Physical Exam
-
General: Well Developed, Well Nourished, No Apparent Distress and Comfortable
Eyes: Able to visualize OU
HEENT: Normocephalic and Atraumatic
Neck: No Bruits Bilaterally and Full Range of Motion
Respiratory: Clear to Auscultation
Cardiac: Regular Rhythm and No Murmur
GI: Normal Bowel Sounds, Non-tender and Non-distended
Skin: Unremarkable
Extremities: No Clubbing, No Cyanosis and No Edema
Psych: Confused
Extended Neurological Exam
Mood & Affect: Anxious
Attention Span & Concentration: Lethargic and Moderate Difficulty with 2 Step Request
Memory: Reduced, Unable to Recall and Vague
Tremor: Hand Tremor Absent and Head Tremor Absent
Involuntary Movement: None
Speech: Mildly Reduced Output and Dysarthric
Cranial Nerve II: Left Eye: Visual De Leon Grossly Intact
Cranial Nerve II: Right Eye: Visual De Leon Grossly Intact
Cranial Nerves III, IV, : Extraocular Movement: Extraocular Movement Full in all Directions
Cranial Nerve V: Facial Sensation: Intact to Light Touch
Cranial Nerve VII: Facial Symmetry: Normal Facial Symmetry
Cranial Nerve VIII: Hearing: Unremarkable Hearing to Normal Conversational Volume
Cranial Nerves IX, X: Palate Movement: Palate Elevation Symmetric
Cranial Nerve XI: Shoulder Shrug: Unremarkable
Cranial Nerve XII: Tongue Protusion: Midline
Muscle Strength, Overall: Full Throughout
Muscle Bulk & Tone: Bulk Unremarkable and Tone Unremarkable
Pronator Drift: No Drift in Upper Extremities and No Drift in Lower Extremities
Deep Tendon Reflexes: Trace Throughout
Cold Sensation: Unremarkable
Vibration Sensation: Unremarkable
Touch Sensation: Unremarkable
Coordination: Reaches for Objects without Difficulty
Babinski Sign: Absent Bilaterally
Gait & Station: Romberg Test Positive
Modified [place] Score (MRS)
-
Modified [place] Scale (mRS): Moderately severe disability. Unable to attend to bodily needs/walk.
Score: 4
Data Reviewed
-
CT Head: Report Reviewed and Image Reviewed
[2024-01-27] MEDS: LOW STRENGTH ASPIRIN PO (16:27)
[2024-01-27] MEDS: TYLENOL 1000 MG PO (16:30)
[2024-01-27 19:18] VITALS: BP 112/65
[2024-01-27 23:14] VITALS: BP 115/59
[2024-01-28] VITALS (9 sets, daily range): BP systolic 61–163; BP diastolic 70–90
[2024-01-28] MEDS: LIPITOR 20 MG PO (07:52)
[2024-01-28 08:46] LABS: ALT (SGPT) 16 U/L (0-50); AST (SGOT) 18 U/L (17-59); Alkaline Phosphatase 61 U/L (38-126); Blood Urea Nitrogen 16 mg/dl (9-20); Calcium 9.5 mg/dl (8.4-10.2); Carbon Dioxide 26 mmol/L (22-30); Chloride 94 mmol/L (98-107); Estimated Creatinine Clearance 70 ml/min; Glucose 97 mg/dl (70-99); Potassium 4.3 mmol/L (3.5-5.1); Sodium 131 mmol/L (135-145); Total Bilirubin 1.1 mg/dl (0.2-1.3); Total Protein 6.2 g/dl (6.3-8.2); eGFR > 60.00
--- NOTE | 2024-01-28 10:02 | W.PN.NEURO.1 ---
Documented by User: Rosio Garvin NP 01/28/24 12:24
Today's Communication / Plan
-
.
Neuro Assessment/Plan
Assessment
78 yr. old male with h/o lightheadedness confusion and ataxia since November 2023. Worse over the last week, exacerbated after starting new prescriptions including oxycodone and gabapentin.
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 If truly subacute, differential diagnosis would include Normal pressure hydrocephalus, paraneoplastic process is unlikely based on the patient's prior functioning with MRI head changes of small vessel
disease.
-MRI brain 01/26/24: No MRI evidence for acute infarct or intracranial hemorrhage. 4 mm chronic lacunar infarct in the inferior right basal ganglia. Mild white matter leukoaraiosis in the frontal and parietal lobes. Mild to moderate diffuse cerebral
and cerebellar volume loss. Mild paranasal sinus mucosal disease.
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 3.1 mm anterolisthesis of C4 on C5 secondary to severe left-sided facet joint arthrosis. Moderate-sized central disc herniation at C4/C5 causing mild
spinal cord compression and central canal stenosis. Mild spinal cord compression and central canal stenosis at C3/C4 and C6/C7 secondary to disc-osteophyte complexes. Severe bilateral neural foraminal narrowing at C6/C7. Severe left neural foraminal
narrowing at C4/C5. 3.3 mm anterolisthesis of C7 on T1. Severe calcific atherosclerotic plaque in the proximal left internal carotid artery. Multiple left-sided thyroid nodules.
-MRI Lumbar Spine 01/28/24: There is multilevel degenerative disc disease and facet arthropathy with superimposed endplate degenerative edema at L3-L4. There is resultant multilevel spinal canal or neuroforaminal narrowing most pronounced at L3-L4
L4-L5 where there is mild canal stenosis and mild/moderate neuroforaminal narrowing.
-EEG 01/28/24: Moderately abnormal study for age based on bursts of frontally predominant rhythmic lateralized delta activity with single episode of generalization, not clearly epileptiform. No seizures were recorded.
I. Normal pressure hydrocephalus possible.
II. 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
III. Peripheral neuropathy contributing to gait dysfunction.
IV. MRI brain negative for acute stroke. Demonstrates chronic right basal ganglia lacunar infarct and mild to moderate cerebral and cerebellar volume loss.
V. Cervical and lumbar spine imaging demonstrates extensive degenerative changes.
Plan
-IRAD today for large volume lumbar puncture. PT to assess gait following removal of 40-50ml CSF removal.
-Goal normotension. Check orthostatic vital signs BID.
-Continue physical therapy evaluation with occupational therapy and speech therapy for cognitive testing.
-Neurological checks per unit guidelines.
-B1 level pending.
-Continue aspirin 81mg daily.
-DVT prophylaxis.
-Needs outpatient Neuropsychological testing.
-Will follow pending results.
Subjective/Objective
Subjective Data
Date of Service: January 28, 2024
No acute events overnight. Patient endorses 8/10 right neck pain. He denies any headache, dizziness, vision changes (left eye low vision at baseline), speech/swallow difficulty, numbness, weakness, chest pain, palpitations, and shortness of breath.
Objective Data
Vital Signs
Temp Pulse Resp BP Pulse Ox
99 F 73 18 119/77 95
01/28/24 07:58 01/28/24 07:58 01/28/24 07:58 01/28/24 07:58 01/28/24 07:58
Lab Results
01/28/24 07:48
Sodium 131 mmol/L (135-145) L 01/28/24 07:48
Potassium 4.3 mmol/L (3.5-5.1) 01/28/24 07:48
BUN 16 mg/dl (9-20) 01/28/24 07:48
Glucose 97 mg/dl (70-99) 01/28/24 07:48
Calcium 9.5 mg/dl (8.4-10.2) 01/28/24 07:48
LDL Cholesterol, Calc 56 mg/dl 01/26/24 08:00
Vitamin B12 439 pg/ml (427-361) 01/26/24 08:00
Patient Allergies
No Known Allergies Allergy (Verified 01/25/24 14:02)
Review of Systems
-
History Source: Patient
EENT: Decreased Vision (left eye baseline); Negative Blurry Vision or Swallowing Difficulty
Respiratory: Negative Cough or Trouble Breathing
Cardiac: Negative Chest Pain or Palpitations
Abdomen/GI: Negative Nausea
Neuro: Negative Dizzy, Headache, Weakness, Numbness, Ataxia, Tremors or Speech Problem
Physical Exam
-
General: No Apparent Distress
Eyes: No Ptosis and PERRLA
HEENT: Normocephalic and Atraumatic
Neck: Full Range of Motion
Respiratory: No Dyspnea
GI: Non-distended
Skin: Unremarkable
Extremities: No Clubbing, No Cyanosis and No Edema
Psych: Confused; Negative Intact Judgement/Insight
Extended Neurological Exam
Mood & Affect: Mood Unremarkable and Affect Unremarkable
Attention Span & Concentration: Awake, Alert and Interactive
Memory: Reduced (Oriented to person, place, and month, not year/situation) and Incomplete Historian
Tremor: Hand Tremor Absent and Head Tremor Absent
Involuntary Movement: None
Speech: Quality Unremarkable, Quantity Unremarkable and Rate of Production Unremarkable
Cranial Nerve II: Left Eye: Pupillary Reactivity Unremarkable, Pupillary Size Unremarkable and Visual De Leon Reduced
Cranial Nerve II: Right Eye: Pupillary Reactivity Unremarkable, Pupillary Size Unremarkable and Visual De Leon Intact
Cranial Nerves III, IV, : Extraocular Movement: Extraocular Movement Full in all Directions
Cranial Nerve V: Facial Sensation: Intact to Light Touch
Cranial Nerve VII: Facial Symmetry: Normal Facial Symmetry
Cranial Nerve VIII: Hearing: Unremarkable Hearing to Normal Conversational Volume
Cranial Nerves IX, X: Palate Movement: Palate Elevation Symmetric
Cranial Nerve XI: Shoulder Shrug: Unremarkable
Cranial Nerve XII: Tongue Protusion: Midline
Muscle Strength, Overall: Full Throughout
Muscle Bulk & Tone: Bulk Unremarkable and Tone Unremarkable
Pronator Drift: No Drift in Upper Extremities and No Drift in Lower Extremities
Deep Tendon Reflexes: Unremarkable Throughout
Cold Sensation: Reduced Severely Distally
Vibration Sensation: Absent Distally (in BLE ankles/feet)
Touch Sensation: Double Simultaneous Stimulation Unremarkable
Coordination: [id number] Testing Unremarkable
Babinski Sign: Absent Bilaterally
Data Reviewed
-
CT Cervical Spine: Report Reviewed and Image Reviewed
MRI Head: Report Reviewed and Image Reviewed
MRI Lumbar Spine: Report Reviewed and Image Reviewed
Orthostatic Testing: Report Reviewed
Labs: Report Reviewed
Reviewed with: Physician and Patient
Medications
-
Active Medications
Generic Name Dose Route Start Last Admin
Trade Name Freq PRN Reason Stop Dose Admin
Acetaminophen 1,000 mg 01/25/24 21:06 01/27/24 16:30
Acetaminophen 500 Mg Tablet PO 02/22/24 21:05 1,000 mg
Q6HPRN PRN Administration
TRENT, mild pain, T >100.4F
Aspirin 81 mg 01/26/24 08:00 01/27/24 16:27
Aspirin 81 Mg Chewable Tablet PO 02/23/24 07:59 Not Given
DAILY UMAIR
Atorvastatin Calcium 20 mg 01/26/24 08:00 01/28/24 07:52
Atorvastatin (Lipitor) 20 Mg Tablet PO 02/23/24 07:59 20 mg
DAILY UMAIR Administration
Ketorolac Tromethamine 15 mg 01/27/24 16:30
Ketorolac 15 Mg/Ml Injection IV 02/01/24 16:29
Q8HPRN PRN
pain following procedure
Home Medications
�Medication �Instructions �Recorded
atorvastatin 20 mg tablet 20 mg PO DAILY High Cholesterol 01/01/23
acetaminophen 500 mg tablet 1,000 mg PO Q6HPRN PRN mild pain 01/25/24
(Tylenol Extra Strength)
oxycodone 5 mg tablet 5 mg PO Q6HPRN PRN Pain 01/25/24

Documented by User: Rosalino Parr MD 01/28/24 15:49
Today's Communication / Plan
-
Neurology Attending Note:
78 yr. old male with h/o new onset of confusion and gait ataxia since November 2023, worse with addition of new medications: Gabapentin and OxyContin that have been stopped. Exam significant for confusion and gait ataxia without focal deficits
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
Pat underwent LP with removal of large CSF volume.
Post procedure pat has no headaches with improved level of alertness. Pat able to stand walk and pivot greater than 200 feet with minimal assist.
Pat notes he is better
I have informed that this benefit is only temporary
Will consult Neurosurgery for GRAIN TRIMMER shunt as OP
[2024-01-28 10:39] LABS: Hematocrit 44.3 % (39.0-52.0); Hemoglobin 16.2 g/dL (13.0-18.0); Mean Corp Hgb Conc. 36.6 g/dL (33.0-37.0); Mean Corpuscular Hgb 33.8 pg (27.0-31.0); Mean Corpuscular Volume 92.3 fL (80.0-94.0); Mean Platelet Volume 8.9 fL (7.4-10.4); Platelet Count 217 10^3/uL (130-400); Red Cell Dist. Width 11.9 % (11.5-14.5); White Blood Cell Count 10.4 10^3/uL (4.8-10.8)
[2024-01-28 11:03] LABS: INR 1.14; PT 14.7 Sec (11.4-14.6)
--- NOTE | 2024-01-28 11:07 | EEG.RPT ---
Electroencephalogram Report
Recording
Date of EE01/28/24
Type of EEG: Routine
Length of EEG recordin minutes
Done with Video Recording: Yes
Patient Status: Inpatient
Recording Conditions: Awake and Drowsy
Hyperventilation Performed: No
Photic Stimulation Performed: Yes
Report
LESS THAN 1 HOUR REPORT
LESS THAN 1 HOUR EEG INTERPRETATION:
Moderately abnormal study for age based on bursts of frontally predominant rhythmic lateralized delta activity with single episode of generalization, not clearly epileptiform. No seizures were recorded.
CLINICAL CORRELATION:
Clinical correlation is advised.
METHODS:
A 21 channel digitized electroencephalogram (EEG) was performed at the bedside. The 10/20 international system of electrode placement was used with ECG and lateral/vertical eye movements recorded.
ELECTROENCEPHALOGRAPHER IMPRESSION(S):
Quality of study
Fair
Background
Medium amplitude
Gkur-zxgmztfl-osmhhgbor voltage gradient differentiation
Alpha maximal background demonstrated, slowing to delta at times
Sleep
Drowsiness present
Hyperventilation
Not performed
Photic Stimulation
Failed to activate the record
ECG
Normal rhythm
Abnormal Activity
Intermittent frontally predominant rhythmic delta lasting up to 3 seconds one per second, which was medium amplitude.
[2024-01-28 11:40] LABS: Glycohemoglobin (HgbA1c) 5.4 % (4.0-5.6)
--- NOTE | 2024-01-28 12:36 | W.PN.UPDATE ---
Addendum entered and electronically signed by Jewel Montaño MD 01/28/24 18:51:
Patient lumbar puncture reported showing increased WBC count of 45, lymphocyte 55%, granulocyte 1% macrophages 44%, glucose less than 20 total protein 136.
Gram stain of CSF showing budding yeast.
[facility] meningitis panel negative for any pathogen including cryptococcus (low sensitivity per ID)
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 A send out CSF antigen test has been ordered.
ID consulted emergently who have started patient on amphotericin B/fluconazole.
Patient started on IV fluid.
Transfer to telemetry level
Stop ketorolac as simultaneous use can cause nephrotoxicity.
Patient spouse updated about new findings.
Original Note:
Update Note
Progress Note Update
I saw and evaluated the patient. I reviewed the resident�s note and agree with findings and plan as documented in the resident�s note.
Patient mood remains depressed.
Subjectively doesn't feel any different in regards of balance improvement.
1. Acute ataxia
Question of NPH as differential
-New onset of ataxia today on top of some slowly developing weakness for last 2 weeks.
-No nystagmus/vertigo/dizziness. some difficulty doing finger nose test on both sides.
-Denies previous history of stroke
-Carotid Doppler in December 17 was negative
-No history of diabetes. Former smoker
-CT head without contrast earlier week was negative.
-MRI brain with and without contrast negative for any abnormal findings.
-TSH/B12/Folate wnl.
-Patient needing help with doing simple things. Leaning toward right on ambulation. PT recommended skilled rehab
-Patient also having some cognition changes. OT is planning to do a BCAT scoring on next visit.
-LP pending today - further testing/opening pressure test pending
-Neuro recommended large volume LP with drainage of 40-50ml CSF, followed by PT eval
-Physiatry evaluation requested as well.
2. Thyroid nodule
-Patient had been discharged by endocrinology
-Nodule biopsy in was negative for any malignancy
-TSH/FT4 WNL
3. Hyperlipidemia
-Maintained on atorvastatin
4. Generalized weakness
-UA negative. Chest x-ray clear. No clear signs of infection
-COVID-negative
DVT prophylaxis -SCD
Full code
Total time spent : 54mins
[2024-01-28] MEDS: TYLENOL 1000 MG PO (12:58)
--- NOTE | 2024-01-28 12:59 | W.PN.HOSP.TC ---
Addendum entered and electronically signed by Jewel Montaño MD 01/28/24 18:50:
Patient lumbar puncture reported showing increased WBC count of 45, lymphocyte 55%, granulocyte 1% macrophages 44%, glucose less than 20 total protein 136.
Gram stain of CSF showing budding yeast.
[facility] meningitis panel negative for any pathogen including cryptococcus (low sensitivity per ID)
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 A send out CSF antigen test has been ordered.
ID consulted emergently who have started patient on amphotericin B/fluconazole.
Patient started on IV fluid.
Transfer to telemetry level
Stop ketorolac as simultaneous use can cause nephrotoxicity.
Original Note:
Today's Communication/Plan
-
PM&R consulted (01/27)
F/U neurology on results of LP
continue OT/PT therapy
Assessment / Plan
Assessment / Plan
Ataxia
Normal pressure hydrocephalus
- CT head on 01/17- no acute intracranial abnormalities
- Brain MRI 01/25- no evidence of acute infarct/bleed
- EEG ( 01/27)- no evidence of seizures recorded
-Will need to do Lumbar puncture today (01/27)- pending
- Continue Pt/OT - patients balance/ coordination is off
- PM&R consulted (01/27)
Thyroid nodule
-Patient had been discharged by endocrinology
-Nodule biopsy in 23 was negative for any malignancy
-TSH/FT4 WNL
Hyperlipidemia
-continue on atorvastatin
Generalized weakness
- no evidence of current infection
-chest xray- normal
- UA is normal
-COVID-negative
Anticipated Discharge: 24 - 48 hours
Subjective/Interval History
-
Date of Service: January 28, 2024
Patient has no acute complaints
Objective Data
-
Labs:
Laboratory Results
01/28/24 01/28/24
07:48 10:25
WBC 10.4
Hgb 16.2
Hct 44.3
Plt Count 217
PT 14.7 H
INR 1.14
Sodium 131 L
Potassium 4.3
Chloride 94 L
Carbon Dioxide 26
BUN 16
Creatinine 0.8
Glucose 97
Calcium 9.5
Total Bilirubin 1.1
AST 18
ALT 16
Alkaline Phosphatase 61
Vital Signs:
Vital Signs
Temp Pulse Resp BP Pulse Ox
98.6 F 63 18 163/87 97
01/28/24 12:04 01/28/24 12:04 01/28/24 12:04 01/28/24 12:04 01/28/24 12:04
I&O
01/27/24 01/28/24 01/29/24
06:59 06:59 06:59
Intake Total 1080 / 1080 1080 / 1080
Output Total 325 / 325
Balance 1080 / 1080 755 / 755
Review of Systems
-
History Source: Patient
All other systems: Reviewed and negative
Physical Exam
-
General: Well Developed and Well Nourished
HEENT: Normocephalic and Atraumatic
Respiratory: Clear to Auscultation
Cardiac: S1/S2 and Murmur (in aortic area)
GI: Soft, Nontender and Nondistended
Skin: Warm and Dry
Neuro: Awake, Alert and Oriented
Psych: Calm
Data Reviewed
-
Labs: Labs Reviewed by me and Discussed with Physician
--- NOTE | 2024-01-28 15:00 | PTCARENOTE ---
Patient received from IR from LP. Report received from RN. Orders to keep patient lying flat x 2 hours with HOB restriction <[address] Jerry at bedside with physical therapy. Dr. Jerry instructed physical therapy to assess patients
mobility after LP. See PT note. VSS. Patient assisted back to lying position with HOB <30 degrees until 1630. Bandaid on back CDI. Pt. has no c/o of headache, N/V.
--- NOTE | 2024-01-28 16:37 | CM ---
Chart reviewed and physical therapy are recommending acute rehab for patient, patient is currently ambulating 150 feet without a device and supervision. PM&R consult has been placed.
Plan; Await recommendations from PM&R for plan for patient.
[2024-01-28 16:42] LABS: CSF Tube # 3
[2024-01-28 16:44] LABS: CSF Color Xanthochromic
[2024-01-28 16:45] LABS: CSF Tube # Clarity Hazy; Red Cell Count/CSF 6 mm^3
[2024-01-28 16:46] LABS: CSF Clarity Hazy; CSF Color Xanthochromic; CSF Tube # 1; Red Cell Count/CSF 331 mm^3
[2024-01-28 16:56] LABS: White Blood Cell Count/CSF 45 mm^3 (0-5); White Cell Count/CSF 60 mm^3 (0-5)
[2024-01-28 16:58] LABS: Spinal Fluid Glucose < 20 mg/dl (40-70); Spinal Fluid Protein 136 mg/dl (12-60)
[2024-01-28 17:11] LABS: CSF Granulocytes 1 %; CSF Lymphocytes 55 %
[2024-01-28 17:12] LABS: Spinal Fluid Macrophages 44 %
[2024-01-28 17:20] LABS: Spinal Fluid Granulocytes 7 %; Spinal Fluid Lymphocytes 46 %
[2024-01-28 17:21] LABS: CSF Comment 1; Spinal Fluid Macrophages 46 %
[2024-01-28] MEDS: BENADRYL 50 MG IV (18:28)
[2024-01-28] MEDS: TYLENOL 650 MG PO (18:29)
[2024-01-28] MEDS: LR 500 IV (18:29)
[2024-01-28] MEDS: DIFLUCAN 400 MG IV (18:39)
[2024-01-28] MEDS: LR 1000 IV (20:25)
[2024-01-28 22:13] LABS: HIV Combo Negative (Negative)
[2024-01-28] MEDS: AMBISOME 150 MG IV (22:59)
[2024-01-28] MEDS: D5W 10 ML IV (22:59)
[2024-01-29] VITALS (7 sets, daily range): BP systolic 135–174; BP diastolic 70–94
[2024-01-29] MEDS: D5W 10 ML IV ×3 (00:52→23:35)
[2024-01-29] MEDS: TYLENOL 1000 MG PO ×2 (04:28→20:18)
--- NOTE | 2024-01-29 04:46 | PTCARENOTE ---
Patient administered Tylenol for T100.6. House DIRECTOR IN[employer]OUND SALES notified of yesterday's Lumbar puncture and findings. Blood culture and Urinalysis Reflex to Culture ordered.
[2024-01-29 05:04] LABS: % Basophils 0.4 % (0-2); % Eosinophils 0.3 % (0-6); % Immature Granulocytes 0.4 % (0-0.5); % Lymphocytes 5.3 % (20.5-51.1); % Monocytes 5.7 % (1.7-9.3); % Neutrophils 87.9 % (42.2-75.2); Absolute Immature Granulocytes 0.1 10^3/uL (0-0.05); Absolute Lymphocytes 0.6 10^3/uL (1.2-3.4); Absolute Monocytes 0.6 10^3/uL (0.1-0.6); Absolute Neutrophils 9.9 10^3/uL (1.4-6.5); Hematocrit 41.1 % (39.0-52.0); Hemoglobin 15.1 g/dL (13.0-18.0); Mean Corp Hgb Conc. 36.7 g/dL (33.0-37.0); Mean Corpuscular Hgb 33.5 pg (27.0-31.0); Mean Corpuscular Volume 91.1 fL (80.0-94.0); Nucleated Red Blood Cells % 0 % (-); Platelet Count 191 10^3/uL (130-400); Red Blood Cell Count 4.51 10^6/uL (4.70-6.10); Red Cell Dist. Width 11.8 % (11.5-14.5); White Blood Cell Count 11.3 10^3/uL (4.8-10.8)
[2024-01-29 05:29] LABS: ALT (SGPT) 17 U/L (0-50); AST (SGOT) 20 U/L (17-59); Albumin 3.7 g/dl (3.5-5.0); Alkaline Phosphatase 59 U/L (38-126); Blood Urea Nitrogen 15 mg/dl (9-20); Calcium 9.3 mg/dl (8.4-10.2); Carbon Dioxide 26 mmol/L (22-30); Chloride 92 mmol/L (98-107); Estimated Creatinine Clearance 79 ml/min; Glucose 101 mg/dl (70-99); Magnesium 1.9 mg/dl (1.6-2.3); Potassium 4.4 mmol/L (3.5-5.1); Sodium 127 mmol/L (135-145); Total Bilirubin 1.5 mg/dl (0.2-1.3); eGFR > 60.00
--- NOTE | 2024-01-29 05:46 | W.PN.UPDATE ---
Addendum entered and electronically signed by MEGAN Pretty 01/29/24 06:54:
Na 127, BS 101, will change fluid to NSS @ 75CC/hr, Urine Na , Urine Osmolality ordered, likely due to Hypovolemic Hyponatremia. Not on any diuretics. May need Nephrology consult.
Original Note:
Update Note
Progress Note Update
Temp of 100.6 noted by RN. Last elevated temperature of 100.2, noted on 01/24. Lumbar puncture results noted, Likely due to the fungal meningitis, on amphotericin B/fluconazole. Will order blood culture and UA.
--- NOTE | 2024-01-29 06:38 | PTCARENOTE ---
House APPLIANCE SERVICE REPRESENTATIVE notified of AM labs. LR switched to NSS. Pt grossly incontinent. unable to get Urine specimen at this time.
[2024-01-29] MEDS: NSS 1000 IV (06:41)
[2024-01-29 08:07] LABS: Thyroid Peroxidase Ab (TPO) 0.4 IU/mL (0.0-9.0)
[2024-01-29] MEDS: LIPITOR 20 MG PO (08:42)
[2024-01-29] MEDS: MAGNESIUM OXIDE 500 MG PO (08:42)
--- NOTE | 2024-01-29 08:48 | CON.ID ---
Addendum entered and electronically signed by Naa John MD 01/30/24 09:37:
as neuro status markedly improved, LP was considered unnecessary and not ordered 01/28
Addendum entered and electronically signed by Naa John MD 01/29/24 14:57:
afternoon chart checked
nephrology feels 500 cc bolus of NS prior to ampho is reasonable, I have ordered it
Original Note:
Consultation
-
Date/Time Consultation Requested: 01/29/24 8:37
Date/Time Consultation Performed: 01/29/24 8:48
Requesting Provider: Dr Montaño
Performing Provider: Dr John
Reason for Consultation: fungal meningitis
Chief Complaint / Past History
Chief Complaint
balance issues, weakness
History of Present Illness
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
anorexia for about 2 weeks. The dose packs were given for the neck pain after the onset of the neck pain and malaise. does report first episode of neck injection with steroids was planned but had not yet occurred. At baseline he walks 3+
miles a day and lift weights 3x/week. On the day of arrival notably unsteady and nearly fell down. +lightheadedness with standing. No fevers or chills. No nausea, vomiting or double vision. No cough, shortness of breath, palpitations, abdominal
pain or diarrhea. He had new prscriptions for oxycodone and gabapentin newly prescribed the day before which he was taking - wondered if this was contributing to gait disturbance. Home covid testing negative x2. Saw PCP for the neck pain and
MRI c spine and brain ordered; however CT of head done jan 17 and unremarkable. This spring he and his spread a mix of chicken and cow manure on their garden and they have been working in the garden. No other direct exposure to birds or
chickens.
Since arrival here initial Tmax was 100.2, bp stable, wbc initially 11.0 peaked at 13.4 on HD2 and today 11.3, hgb 15.1, plt 191, L shift is noted, ESR 6, cr 0.7, Na on arrival 132 today 127, a1c 5.4, t bili today 1.5, ast 20, alt 17, alk phos 59,
CSF wbc 45, rbc 6, lymphocytes 55%, macrophages 44%, glucose <20, t protein 136, csf gram stain many budding yeast, fungal culture in progress, meningitis panel negative for c neoformans/gattii (note low sensitivity of this test in the literature),
CRAG on CSF sent, opening pressure was 25 mmH2O, HIV screen negative. I requested masoud ink (which we previously had as the CRAG is a send out) but it has been discontinued. I was called with the critical value of yeast in the CSF and started lipo
ampho B, pharmacy confirmed flucytosine was not in stock, therefore I requested it and started high dose fluconazole and asked for him to be put on telemetry. CXR 01/24: no active CP disease. MRI brain with and w/o contrast: 4 chronic lacunar
infarcts, mild/mod volume loss. MRI lumbar spine DD This AM he developed a fever of 100.6, bp stable
Past History
Additional Past Medical History:
hyperlipidemia, cervical spine degenerative joint disease, thyroid nodule, former smoker
Past Surgical History: Appendectomy and Other (partial thyroidectomy)
Allergy History:
No Known Allergies Allergy (Verified 01/25/24 14:02)
Medications Reviewed: Yes
Social History
Tobacco: Former Smoker
Alcohol: None
Drug: None
Family History
Family History: Not Pertinent
Review of Systems
Review of Systems
General: Negative Fever or Chills
All systems: All other systems were reviewed and were negative
Vital Signs
Temp Pulse Resp BP Pulse Ox
97.9 F 66 15 148/84 98
01/29/24 07:48 09/04/24 07:48 01/29/24 07:48 01/29/24 07:48 01/29/24 07:48
Physical Exam
Physical Exam
Constitutional: No Acute Distress and Chronically Ill
Cardiovascular: Regular Rate and S1/S2; Negative Murmur or Rub
Pulmonary: Clear and Symmetric; Negative Wheezes, Rales or Rhonchi
Gastrointestinal: Soft, Non Tender, Non Distended and Normal Bowel Sounds
Skin: Warm and Dry; Negative Rash or Jaundice
Neurological: Awake, Alert, Normal Muscle Strength, No Motor Deficits and Other (sensation intact; CN2-12 intact)
Psychological: Calm
Lab / Diagnostic Study Results
01/29/24 04:53
01/29/24 04:53
Abs Immat Gran (auto) 0.1 10^3/uL (0-0.05) H 01/29/24 04:53
Absolute Neuts (auto) 9.9 10^3/uL (1.4-6.5) H 01/29/24 04:53
Absolute Lymphs (auto) 0.6 10^3/uL (1.2-3.4) L 01/29/24 04:53
Absolute Monos (auto) 0.6 10^3/uL (0.1-0.6) 01/29/24 04:53
Absolute Basos (auto) 0.0 10^3/uL (0-0.2) 01/29/24 04:53
Immature Gran % 0.4 % (0-0.5) 01/29/24 04:53
Neutrophils % 87.9 % (42.2-75.2) H 01/29/24 04:53
Lymphocytes % 5.3 % (20.5-51.1) L 01/29/24 04:53
Monocytes % 5.7 % (1.7-9.3) 01/29/24 04:53
Eosinophils % 0.3 % (0-6) 01/29/24 04:53
Basophils % 0.4 % (0-2) 01/29/24 04:53
ESR 6 mm/hour (0-20) 01/26/24 13:48
PT 14.7 Sec (11.4-14.6) H 01/28/24 10:25
INR 1.14 01/28/24 10:25
Ur Squamous Epith Cells 0-2 /LPF (Few) 01/25/24 15:23
Microbiology Results
Micro:
01/29/24 04:53 Blood Culture - Pending
Blood/Venous
01/28/24 13:45 Fungal Culture - Preliminary
Csf Culture in progress.
Positive cultures are reported as soon as detected.
Final report to follow in four to five weeks.
01/28/24 13:45 Meningitis/Encephalitis Panel (PCR) - Final
Csf
01/28/24 13:45 CSF Culture - Pending
Csf Gram Stain - Preliminary
01/26/24 13:45 Acid Fast Bacilli Smear - Pending
Csf Acid Fast Bacilli Culture - Pending
01/25/24 19:50 Salmonella/Shigella Culture - Final
Feces/Stool No Salmonella, Shigella, Aeromonas or Plesiomonas species
isolated.
Campylobacter Culture - Final
No Campylobacter species isolated.
Shiga Toxin Test - Pending
Stool Leukocytes - Final
Assessment / Plan
Fungal Meningitis
- Cryptococcal would be the most common etiology, histoplasmosis also seen in this region but would be unusual as primary meningitis in nonimmunosuppressed patient, candidal unlikely without direct injection
- LP opening pressure was 25 mmH2O and 20 ccs of CSF was collected - at which point there was no further return
- plan daily LPs until CSF pressure stabilized >2 days
- CSF wbc 45, rbc 6, lymphocytes 55%, macrophages 44%, glucose <20, t protein 136, csf gram stain many budding yeast,
- CRAG on CSF sent out; [facility] meningitis panel negative for crypto but low sensitivity
- fungal culture in progress
- continue lipo ampho B 3 mg/kg daily
- daily mag levels, K, Ca, Na
- aggressive K repletion to 4.0+ PRN
- preemptively started mag replacement - continue
- avoid nephrotoxic agents as feasible
- pretreatment benadryl, tylenol
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
- requested pharmacy purchase flucytosine 25 mg/kg/dose QID (plan 1500 mg qdose); now in stock and starting today
- follow CBC and CMP daily
- in the interim, started fluconazole 800 mg q24 yesterday, stopped today
- telemetry monitoring can be stopped
- hyponatremia, would be concerned for SIADH
- told RN that urine electrolytes are stat, PRN straight cath, presume SIADH until proven otherwise
- I held NS
Care Review
Plan reviewed with: Physician (Dr Montaño, Dr Parr - detailed disucssion re management)
--- NOTE | 2024-01-29 11:35 | CM ---
Reviewed the chart notes. PMR consult pending. PT recommending acute rehab. CM continues to be available to patient/family and is monitoring medical plan for needs at discharge.
Plan: Discharge plans will depend on the patient's progress.
[2024-01-29 12:05] LABS: Urine Albumin Negative (Neg - Trace); Urine Bilirubin Negative (Negative); Urine Character Clear (Clear); Urine Color Yellow; Urine Glucose Negative (Negative); Urine Ketone Negative (Negative); Urine Leukocyte Negative (Negative); Urine Nitrite Negative (Negative); Urine Occult Blood 1+ (Negative); Urine Specific Gravity 1.015 (<1.030); Urine Urobilinogen Negative (Neg - 1+); Urine pH 6.5 (5.0-9.0)
[2024-01-29 12:14] LABS: Osmolality Urine 393 mOsm/kg (300-900)
[2024-01-29 12:15] LABS: Urine Mucus Few; Urine Squamous Cell 0-2 /LPF (Few)
[2024-01-29 12:16] LABS: Urine Bacteria Few (Negative); Urine Granular Cast 0-2 /LPF (0)
[2024-01-29] MEDS: [UNRECOGNIZED DRUG - OTHER] 1500 MG PO ×3 (13:03→23:06)
--- NOTE | 2024-01-29 13:04 | W.PN.UPDATE ---
Update Note
Progress Note Update
I saw and evaluated the patient. I reviewed the resident�s note and agree with findings and plan as documented in the resident�s note.
Denies of having any headache. Patient had minimal temperature rise of 100.5 Fahrenheit in the night
1. Fungal meningitis
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
-New onset of ataxia on top of some slowly developing weakness for last 2 weeks.
-No nystagmus/vertigo/dizziness. some difficulty doing finger nose test on both sides.
-MRI brain with and without contrast negative for any acute abnormality
-Patient lumbar puncture reported showing increased WBC count of 45, lymphocyte 55%, granulocyte 1% macrophages 44%, glucose less than 20 total protein 136.
-Gram stain of CSF showing budding yeast.
-[facility] meningitis panel negative for any pathogen including cryptococcus (low sensitivity per ID)
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 A send out CSF antigen test has been ordered.
-ID consulted emergently who have started patient on amphotericin B/fluconazole.
-Flucytosine has been arranged by pharmacy and patient will be started on that as well
-Stop ketorolac as simultaneous use can cause nephrotoxicity.
-Will require to closely monitor electrolytes potassium/sodium/magnesium.
2. Acute hyponatremia
-Sodium is downtrending likely from amphotericin B use
-Stop IV fluid -was providing for prophylactic use for renal protection
-Check urine osmolality/sodium
-Repeat BMP ordered for afternoon at 1400
-Nephrology consulted to follow as well
3. Thyroid nodule
-Patient had been discharged by endocrinology
-Nodule biopsy in 23 was negative for any malignancy
-TSH/FT4 WNL
4. Hyperlipidemia
-Maintained on atorvastatin
5. Generalized weakness
-appropriate for level care
DVT prophylaxis -SCD
Full code
Care plan discussed with linux systems analyst/ID
Total time spent : 56 mins
I personally saw and examined the patient.
I have reviewed all diagnostic interpretations and treatment plans as written.
Time includes patient management by me, time spent at the patients bedside, time to review lab and imaging results, discussing patient care, documentation in the medical record, and time spent with the family or caregiver and discussing care plan
with RN/Consultants.
[2024-01-29 13:24] LABS: Urine Sodium 58 mmol/L (30-90)
--- NOTE | 2024-01-29 13:52 | W.CON.NEPH ---
Consultation
-
Date/Time Consultation Requested: 01/29/24 11a
Date/Time Consultation Performed: 01/29/24 1400
Requesting Provider: Dr. Montaño
Performing Provider: Dr. Shields
Reason for Consultation: hyponatremia
Medical History
-
Chief Complaint: Weakness and imbalance
History of Present Illness:
This is an 78-year-old gentleman who has very limited medical history other than that of hyperlipidemia controlled with statin therapy. He is typically very active and has had no significant issues. About 2 weeks ago he developed generalized
weakness and unsteadiness. He had previously been followed for chronic neck pain by orthopedic surgery and had undergone steroid packs and was scheduled for a steroid injection. However the worsening weakness and steadiness had postponed this. He
had undergone imaging studies which had not shown any significant issues including CT scan. He says that he had been working out in the garden and had been drinking about 64 ounces of fluid daily as a result. He came to the emergency room because
of the progressive weakness and lightheadedness. Here he was noted to have a sodium level of 132 which is now dropped to 127. He did undergo lumbar puncture and there was finding of yeast in the spinal fluid. This was presumed to be cryptococcal
meningitis and he is now on liposomal Amphotericin and flucytosine. We are asked to assist with management of the hyponatremia given the preference for IV fluids with amphotericin B
Past Medical History
Hyperlipidemia, hypothyroidism, chronic neck pain
Social History
Tobacco: Non-Smoker
Alcohol: Occasional
Family History
Family History: Not Pertinent
Allergies / Home Medications
Allergy/AdvReac Type Severity Reaction Status Date / Time
No Known Allergies Allergy Verified 01/25/24 14:02
�Medication �Instructions �Recorded �Confirmed �Type
atorvastatin 20 mg tablet 20 mg PO DAILY High Cholesterol 01/01/23 01/25/24 History
acetaminophen 500 mg tablet 1,000 mg PO Q6HPRN PRN mild pain 01/25/24 01/25/24 History
(Tylenol Extra Strength)
oxycodone 5 mg tablet 5 mg PO Q6HPRN PRN Pain 01/25/24 01/25/24 History
Review of Systems
-
Lightheadedness, weakness, dizziness
All other systems: Negative unless noted
Physical Exam
Vital Signs
Vital Signs
Temp Pulse Resp BP Pulse Ox
98.0 F 64 18 145/70 97
01/29/24 12:55 01/29/24 12:55 01/29/24 12:55 01/29/24 12:55 01/29/24 12:55
Lab Results
WBC 11.3 10^3/uL (4.8-10.8) H 01/29/24 04:53
RBC 4.51 10^6/uL (4.70-6.10) L 01/29/24 04:53
Hgb 15.1 g/dL (13.0-18.0) 01/29/24 04:53
Hct 41.1 % (39.0-52.0) 01/29/24 04:53
Plt Count 191 10^3/uL (130-400) 01/29/24 04:53
Sodium Cancelled 01/29/24 18:00
Potassium Cancelled 01/29/24 18:00
Chloride Cancelled 01/29/24 18:00
Carbon Dioxide Cancelled 01/29/24 18:00
BUN Cancelled 01/29/24 18:00
Creatinine Cancelled 01/29/24 18:00
eGFR Cancelled 01/29/24 18:00
Glucose Cancelled 01/29/24 18:00
Calcium Cancelled 01/29/24 18:00
Albumin 3.7 g/dl (3.5-5.0) 01/29/24 04:53
Laboratory Tests
12/20/23
07:44
Sodium 138
Laboratory Tests
01/29/24
11:50
Urine Osmolality 393
Urine Sodium 58
Physical Exam
Patient is awake alert oriented and in no distress. Mood and affect were pleasant, insight and judgment were good. Pupils are equal round and reactive to light, extraocular movements are intact, sclera were anicteric. Hearing was normal, ears and
nose are intact. Oropharynx was clear. Neck was supple with trachea midline and no thyromegaly. Heart was regular rate and rhythm without rubs. Lower extremities without edema. Lungs were clear to auscultation bilaterally and with normal
excursion. Abdomen was soft, nontender, with normal active bowel sounds, and no hepatosplenomegaly. Skin was without rash and with normal turgor.
Data Reviewed
-
Radiology: Image Personally Visualized and interpreted (Chest x-ray on January 25, 2024 by my reading shows no acute disease)
CT Scan: Report Reviewed by me (CT head on January 18, 2024 shows no acute abnormality, CT neck on January 27, 2024 shows significant degenerative disc disease)
MRI: Report Reviewed by me (MRI on 01/26/2024 shows no acute infarct, 4 mm chronic infarct right basal ganglia mild diffuse cerebral cerebellar volume loss)
Labs: Labs Reviewed by me
Old Records: Reviewed
Assessment/Plan
-
Assessment
Hyponatremia
Fungal meningitis
Hyperlipidemia
Plan
Hyponatremia is likely excess ADH euvolemic. Given the urine osmolality, fluid restriction 40 ounces per day. We will also add Samsca 15 mg today.
Hyponatremia was likely potentiated by infection, chronic pain, opioid/NSAIDs
Infusion of saline with amphotericin B liposomal may still be performed with 500 cc normal saline if desired
Follow BMP
[2024-01-29 14:37] LABS: Blood Urea Nitrogen 16 mg/dl (9-20); Calcium 9.6 mg/dl (8.4-10.2); Carbon Dioxide 29 mmol/L (22-30); Chloride 90 mmol/L (98-107); Estimated Creatinine Clearance 62 ml/min; Glucose 112 mg/dl (70-99); Potassium 4.4 mmol/L (3.5-5.1); Sodium 131 mmol/L (135-145); eGFR > 60.00
[2024-01-29] MEDS: SAMSCA 7.5 MG PO (14:41)
--- NOTE | 2024-01-29 15:58 | W.PN.HOSP.TC ---
Documented by User: Darnell Sherwood MD, Resident 01/29/24 16:56
Today's Communication/Plan
-
f/u culture results
trend BMP
f/u ID
Assessment / Plan
Assessment / Plan
Ataxia
Normal pressure hydrocephalus
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
- CT head on 01/17- no acute intracranial abnormalities
- Brain MRI 01/25- no evidence of acute infarct/bleed
- EEG ( 01/27)- no evidence of seizures recorded
- Continue Pt/OT - patients balance/ coordination is off
- Lumbar puncture showed opening pressure- 25, 20 cc of CSF collected, WBC count of 45, Lymphocytes 5%, granulocyte 1%, macrophages 44%, glucose <20, total protein 136
- continue on Amphotericin B and fluconazole
- side effects of drugs are electrolyte abnormalities so monitor sodium and potassium
- Flucytosine will also be started
- Gram stain shows many budding yeasts
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
- Fungal blood culture pending
- F/u with ID pending the culture results for further treatment
Hyponatremia
- Na level 127- (01/28) morning time
- 40 oz fluid restriction
- Repeat BNP at 4 pm today (01/28)
- [facility]
- f/u nephrology
Thyroid nodule
-Patient had been discharged by endocrinology
-Nodule biopsy in 23 was negative for any malignancy
-TSH/FT4 WNL
Hyperlipidemia
-continue on atorvastatin
Generalized weakness
- no evidence of current infection
-chest xray- normal
- UA is normal
-COVID-negative
Anticipated Discharge: 24 - 48 hours
Subjective/Interval History
-
Date of Service: January 29, 2024
Pt had a fever of 100.6 F in the morning. Pt has no overnight complaints that he would like to discuss.
Objective Data
-
Labs:
Laboratory Results
01/29/24 01/29/24 01/29/24
04:53 14:05 18:00
WBC 11.3 H
Hgb 15.1
Hct 41.1
Plt Count 191
Sodium 127 L 131 L Cancelled
Potassium 4.4 4.4 Cancelled
Chloride 92 L 90 L Cancelled
Carbon Dioxide 26 29 Cancelled
BUN 15 16 Cancelled
Creatinine 0.7 0.9 Cancelled
Glucose 101 H 112 H Cancelled
Calcium 9.3 9.6 Cancelled
Total Bilirubin 1.5 H
AST 20
ALT 17
Alkaline Phosphatase 59
Vital Signs:
Vital Signs
Temp Pulse Resp BP Pulse Ox
98.8 F 74 16 151/86 98
01/29/24 15:46 01/29/24 15:46 01/29/24 15:46 01/29/24 15:46 01/29/24 15:46
I&O
01/28/24 01/29/24 01/30/24
06:59 06:59 06:59
Intake Total 1080 / 1080 1500 / 1500
Output Total 325 / 325 200 / 200 525 / 525
Balance 755 / 755 1300 / 1300 -525 / -525
Review of Systems
-
History Source: Patient
All other systems: Reviewed and negative
Physical Exam
-
General: Well Developed and Well Nourished
HEENT: Normocephalic and Atraumatic
Respiratory: Clear to Auscultation
Cardiac: Regular Rhythm and S1/S2
Skin: Warm and Dry
Neuro: Awake, Alert and Oriented
Psych: Calm
Data Reviewed
-
Labs: Labs Reviewed by me and Discussed with Physician

Documented by User: Jewel Montaño MD 01/29/24 17:41
Assessment / Plan
Assessment / Plan
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
- CT head on 01/17- no acute intracranial abnormalities
- Brain MRI 01/25- no evidence of acute infarct/bleed
- EEG ( 01/27)- no evidence of seizures recorded
- Continue Pt/OT - patients balance/ coordination is off
- Lumbar puncture showed opening pressure- 25, 20 cc of CSF collected, WBC count of 45, Lymphocytes 5%, granulocyte 1%, macrophages 44%, glucose <20, total protein 136
- continue on Amphotericin B and fluconazole
- side effects of drugs are electrolyte abnormalities so monitor sodium and potassium
- Flucytosine will also be started
- Gram stain shows many budding yeasts
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
- Fungal blood culture pending
- F/u with ID pending the culture results for further treatment
Hyponatremia
- Na level 127- (01/28) morning time
- 40 oz fluid restriction
- Repeat BNP at 4 pm today (01/28)
- Continue [facility] that nephrology ordered
- f/u nephrology
Thyroid nodule
-Patient had been discharged by endocrinology
-Nodule biopsy in was negative for any malignancy
-TSH/FT4 WNL
Hyperlipidemia
-continue on atorvastatin
Generalized weakness
- no evidence of current infection
-chest xray- normal
- UA is normal
-COVID-negative
[2024-01-29] MEDS: BENADRYL 25 MG PO (20:18)
[2024-01-29] MEDS: NSS 250 IV (20:19)
[2024-01-29] MEDS: AMBISOME 150 MG IV (21:25)
[2024-01-29] MEDS: COMPAZINE 5 MG IV (23:36)
[2024-01-30 03:13] VITALS: BP 130/72
[2024-01-30 07:00] VITALS: BP 131/81
[2024-01-30 08:24] LABS: Hematocrit 41.9 % (39.0-52.0); Hemoglobin 15.3 g/dL (13.0-18.0); Mean Corp Hgb Conc. 36.5 g/dL (33.0-37.0); Mean Corpuscular Hgb 32.8 pg (27.0-31.0); Mean Corpuscular Volume 89.7 fL (80.0-94.0); Mean Platelet Volume 8.9 fL (7.4-10.4); Platelet Count 215 10^3/uL (130-400); Red Blood Cell Count 4.67 10^6/uL (4.70-6.10); Red Cell Dist. Width 12.1 % (11.5-14.5); White Blood Cell Count 9.6 10^3/uL (4.8-10.8)
[2024-01-30 08:41] LABS: ALT (SGPT) 16 U/L (0-50); AST (SGOT) 17 U/L (17-59); Alkaline Phosphatase 64 U/L (38-126); Blood Urea Nitrogen 17 mg/dl (9-20); Carbon Dioxide 22 mmol/L (22-30); Chloride 96 mmol/L (98-107); Estimated Creatinine Clearance 62 ml/min; Glucose 110 mg/dl (70-99); Magnesium 2.3 mg/dl (1.6-2.3); Potassium 4.1 mmol/L (3.5-5.1); Sodium 133 mmol/L (135-145); Total Bilirubin 1.2 mg/dl (0.2-1.3); Total Protein 6.3 g/dl (6.3-8.2); eGFR > 60.00
[2024-01-30] MEDS: [UNRECOGNIZED DRUG - OTHER] 1500 MG PO ×4 (09:01→21:40)
[2024-01-30] MEDS: MAGNESIUM OXIDE 500 MG PO (09:01)
[2024-01-30] MEDS: LIPITOR 20 MG PO (09:02)
[2024-01-30] MEDS: LOW STRENGTH ASPIRIN 81 MG PO (09:02)
--- NOTE | 2024-01-30 09:16 | W.PN.ID1 ---
Date of Service
Date of Service: January 30, 2024
Today's Communication
continue current antifungals which he is tolerating
repeat LP not needed today
Assessment / Plan
Fungal Meningitis
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
- 01/27 LP opening pressure was 25 mmH2O and 20 ccs of CSF was collected
- daily assessment, as patient remains well do not plan an additional LP today
- CSF wbc 45, rbc 6, lymphocytes 55%, macrophages 44%, glucose <20, t protein 136, csf gram stain many budding yeast,
- CRAG on CSF was listed as incomplete, spoke with lab and it will be called in to [facility] stat; biofire meningitis panel negative for crypto but low sensitivity
- fungal culture CSF in progress
- blood cultures x2 in progress
- continue lipo ampho B 3 mg/kg daily
- daily mag levels, K, Ca, Na
- aggressive K repletion to 4.0+ PRN
- preemptively started mag replacement - continue
- avoid nephrotoxic agents as feasible
- pretreatment benadryl, tylenol
- daily assessment, if hyponatremia/volume status allows, would order 500 CCs of NS as pretreatment; I ordered today
- c/w flucytosine 25 mg/kg/dose QID (plan 1500 mg qdose)
- follow CBC and CMP daily
- clinical pharmacy exploring if send out levels feasible
- hyponatremia, further management per nephrology/IM services
- follow clinically
Chief Complaint
-: Other (fungal meningitis)
Subjective / Review of Systems
no further fevers
no events overnight
walked with staff successfully
no longer confused
tolerating antifungals
Vital Signs / Physical Exam
Vital Signs
Vital Signs
Temp Pulse Resp BP Pulse Ox
99.5 F 74 16 131/81 98
01/30/24 07:00 01/30/24 07:00 01/30/24 07:00 01/30/24 07:00 01/30/24 07:00
Physical Exam
Constitutional: No Acute Distress
Cardiovascular: Regular Rate and S1/S2; Negative Murmur or Rub
Pulmonary: Clear and Symmetric; Negative Wheezes or Rales
Gastrointestinal: Soft, Non Tender, Non Distended and Normal Bowel Sounds
Skin: Warm and Dry; Negative Rash or Jaundice
Neurological: Other (CN2-12 intact, strength and sensation in the ue/le intact bilaterally)
Objective Data
Lab Data
Lab Results
01/30/24 07:53
01/30/24 07:53
ESR 6 mm/hour (0-20) 01/26/24 13:48
PT 14.7 Sec (11.4-14.6) H 01/28/24 10:25
INR 1.14 01/28/24 10:25
Estimated Creat Clear 62 ml/min 01/30/24 07:53
Total Bilirubin 1.2 mg/dl (0.2-1.3) 01/30/24 07:53
AST 17 U/L (17-59) 01/30/24 07:53
ALT 16 U/L (0-50) 01/30/24 07:53
Alkaline Phosphatase 64 U/L (38-126) 01/30/24 07:53
Most recent labs reviewed.
crypto ag csf was ordered 01/28/24 17:25, still incomplete under the orders, called lab spoke with yasmin, it was not sent. I have put it in as a stat add on order and communicated that [facility] should be called today to add on to any available CSF
fungus culture csf in progress
Micro Results:
01/29/24 04:53 Blood Culture - Preliminary
Blood/Venous No Growth in 24 hours- Final report to follow
01/29/24 11:11 Blood Culture - Pending
Blood/Venous
01/28/24 13:45 CSF Culture - Preliminary
Csf No Growth After 18-24 Hours
Gram Stain - Preliminary
01/28/24 13:45 Fungal Culture - Preliminary
Csf Culture in progress.
Positive cultures are reported as soon as detected.
Final report to follow in four to five weeks.
01/28/24 13:45 Meningitis/Encephalitis Panel (PCR) - Final
Csf
01/26/24 13:45 Acid Fast Bacilli Smear - Pending
Csf Acid Fast Bacilli Culture - Pending
01/25/24 19:50 Salmonella/Shigella Culture - Final
Feces/Stool No Salmonella, Shigella, Aeromonas or Plesiomonas species
isolated.
Campylobacter Culture - Final
No Campylobacter species isolated.
Shiga Toxin Test - Pending
Stool Leukocytes - Final
[2024-01-30] MEDS: SAMSCA 7.5 MG PO (11:06)
--- NOTE | 2024-01-30 11:15 | W.PN.NEPH.PH ---
Today's Communication / Plan
-
samsca
Assessment/Plan
-
Assessment
Hyponatremia
Fungal meningitis
Hyperlipidemia
Plan
samsca again today
follow BMP
antifungals per ID, await identification of organism
-
-
Date of Service: January 30, 2024
CC / HPI / ROS
-
Chief Complaint:
hyponatremia
History of Present Illness:
Na up to 133 with samsca
on lipid amphoB for fungal meningitis
BP stable
Review of Systems:
no CP/SOB
Labs
-
Labs:
WBC 9.6 10^3/uL (4.8-10.8) 01/30/24 07:53
RBC 4.67 10^6/uL (4.70-6.10) L 01/30/24 07:53
Hgb 15.3 g/dL (13.0-18.0) 01/30/24 07:53
Hct 41.9 % (39.0-52.0) 01/30/24 07:53
Plt Count 215 10^3/uL (130-400) 01/30/24 07:53
Sodium 133 mmol/L (135-145) L 01/30/24 07:53
Potassium 4.1 mmol/L (3.5-5.1) 01/30/24 07:53
Chloride 96 mmol/L (98-107) L 01/30/24 07:53
Carbon Dioxide 22 mmol/L (22-30) 01/30/24 07:53
BUN 17 mg/dl (9-20) 01/30/24 07:53
Creatinine 0.9 mg/dL (0.7-1.3) 01/30/24 07:53
eGFR > 60.00 01/30/24 07:53
Glucose 110 mg/dl (70-99) H 01/30/24 07:53
Calcium 10.0 mg/dl (8.4-10.2) 01/30/24 07:53
Albumin 4.0 g/dl (3.5-5.0) 01/30/24 07:53
Physical Exam
-
Vital Signs:
Vital Signs
Temp Pulse Resp BP Pulse Ox
99.5 F 74 16 131/81 98
01/30/24 07:00 01/30/24 07:00 01/30/24 07:00 01/30/24 07:00 01/30/24 08:15
Cardiovascular:: Regular rate and rhythm
Respiratory:: Bilateral: Coarse
Lung Excursion:: Normal
Abdomen:: Nontender and Soft
Bowel Sounds:: Normal
Extremity Edema:: None: Bilateral:
--- NOTE | 2024-01-30 11:50 | W.PN.NEURO.1 ---
Today's Communication / Plan
-
78 yr. old male with h/o lightheadedness confusion and ataxia since November 2023. Worse over the last week, exacerbated after starting new prescriptions including oxycodone and gabapentin. CSF low glucose 20 elevated protein 145 with budding yeast
cells consistent with Fungal Meningitis
Continue antifungal therapy: Amphotericin and flucytosine.
Correct hyponatremia
Neuro Assessment/Plan
Assessment
78 yr. old male with h/o lightheadedness confusion and ataxia since November 2023. Worse over the last week, exacerbated after starting new prescriptions including oxycodone and gabapentin.
CSF reveals Glucose 20 protein 145
-MRI brain 01/26/24: No MRI evidence for acute infarct or intracranial hemorrhage. 4 mm chronic lacunar infarct in the inferior right basal ganglia. Mild white matter leukoaraiosis in the frontal and parietal lobes. Mild to moderate diffuse cerebral
and cerebellar volume loss. Mild paranasal sinus mucosal disease.
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 3.1 mm anterolisthesis of C4 on C5 secondary to severe left-sided facet joint arthrosis. Moderate-sized central disc herniation at C4/C5 causing mild
spinal cord compression and central canal stenosis. Mild spinal cord compression and central canal stenosis at C3/C4 and C6/C7 secondary to disc-osteophyte complexes. Severe bilateral neural foraminal narrowing at C6/C7. Severe left neural foraminal
narrowing at C4/C5. 3.3 mm anterolisthesis of C7 on T1. Severe calcific atherosclerotic plaque in the proximal left internal carotid artery. Multiple left-sided thyroid nodules.
-MRI Lumbar Spine 01/28/24: There is multilevel degenerative disc disease and facet arthropathy with superimposed endplate degenerative edema at L3-L4. There is resultant multilevel spinal canal or neuroforaminal narrowing most pronounced at L3-L4
L4-L5 where there is mild canal stenosis and mild/moderate neuroforaminal narrowing.
-EEG 01/28/24: Moderately abnormal study for age based on bursts of frontally predominant rhythmic lateralized delta activity with single episode of generalization, not clearly epileptiform. No seizures were recorded.
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
III. Cervical/Lumbar DJD.
IV. Hyponatremia
Plan
-Continue Amphotericin.
- Continue Flucytosine 25mg/kg.
-Continue physical therapy evaluation with occupational therapy and speech therapy for cognitive testing.
-Neurological checks per unit guidelines.
-Correct hyponatremia.
-Continue aspirin 81mg daily.
-DVT prophylaxis.
-Needs outpatient Neuropsychological testing.
-Will follow pending results.
Subjective/Objective
Subjective Data
Date of Service: January 29, 2024
Mr. Juárez is doing well. No headache with improved mobility after LP. He is aware that he has a possible fungal infection/meningitis
Objective Data
Vital Signs
Temp Pulse Resp BP Pulse Ox
37.5 C 74 16 131/81 98
01/30/24 07:00 01/30/24 07:00 01/30/24 07:00 01/30/24 07:00 01/30/24 08:15
Lab Results
01/30/24 07:53
01/30/24 07:53
PT 14.7 Sec (11.4-14.6) H 01/28/24 10:25
INR 1.14 01/28/24 10:25
Sodium 133 mmol/L (135-145) L 01/30/24 07:53
Potassium 4.1 mmol/L (3.5-5.1) 01/30/24 07:53
BUN 17 mg/dl (9-20) 01/30/24 07:53
Glucose 110 mg/dl (70-99) H 01/30/24 07:53
Calcium 10.0 mg/dl (8.4-10.2) 01/30/24 07:53
LDL Cholesterol, Calc 56 mg/dl 01/26/24 08:00
Vitamin B12 439 pg/ml (905-931) 01/26/24 08:00
Patient Allergies
No Known Allergies Allergy (Verified 01/25/24 14:02)
Physical Exam
-
General: Well Developed, Well Nourished and Comfortable
Eyes: Able to visualize OU
HEENT: Normocephalic and Atraumatic
Neck: No Bruits Bilaterally and Full Range of Motion
Respiratory: Clear to Auscultation and No Dyspnea
Cardiac: Regular Rhythm and No Murmur
GI: Normal Bowel Sounds, Non-tender and Non-distended
Skin: Unremarkable
Extremities: No Clubbing
Extended Neurological Exam
Mood & Affect: Mood Unremarkable and Affect Unremarkable
Attention Span & Concentration: Awake, Alert and No Difficulty with 2 Step Request
Memory: Reduced
Tremor: Hand Tremor Absent and Head Tremor Absent
Involuntary Movement: None
Speech: Mildly Reduced Output
Cranial Nerve II: Left Eye: Pupillary Reactivity Unremarkable and Visual De Leon Grossly Intact
Cranial Nerve II: Right Eye: Pupillary Reactivity Unremarkable, Pupillary Size Unremarkable and Visual De Leon Grossly Intact
Cranial Nerves III, IV, : Extraocular Movement: Extraocular Movement Full in all Directions
Cranial Nerve V: Facial Sensation: Intact to Light Touch
Cranial Nerve VII: Facial Symmetry: Normal Facial Symmetry
Cranial Nerve VIII: Hearing: Unremarkable Hearing to Normal Conversational Volume
Cranial Nerves IX, X: Palate Movement: Palate Elevation Symmetric
Cranial Nerve XI: Shoulder Shrug: Unremarkable
Cranial Nerve XII: Tongue Protusion: Midline
Muscle Strength, Overall: Full Throughout
Muscle Bulk & Tone: Bulk Unremarkable
Pronator Drift: No Drift in Upper Extremities and No Drift in Lower Extremities
Deep Tendon Reflexes: Unremarkable Throughout
Cold Sensation: Unremarkable
Vibration Sensation: Unremarkable
Touch Sensation: Unremarkable
Coordination: [id number] Testing Unremarkable
Babinski Sign: Absent Bilaterally
Gait & Station: Tandem Walking Unremarkable
Modified Chicot Score (MRS)
-
Modified Get Scale (mRS): Moderate disability. Requires some help, able to walk unassisted.
Score: 3
[2024-01-30 12:00] VITALS: BP 97/59
--- NOTE | 2024-01-30 13:16 | W.PN.UPDATE ---
Update Note
Progress Note Update
I saw and evaluated the patient. I reviewed the resident�s note and agree with findings and plan as documented in the resident�s note.
Patient subjectively feeling better. No issues in night
1. Fungal meningitis
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
-New onset of ataxia on top of some slowly developing weakness for last 2 weeks.
-No nystagmus/vertigo/dizziness. some difficulty doing finger nose test on both sides.
-MRI brain with and without contrast negative for any acute abnormality
-Patient lumbar puncture reported showing increased WBC count of 45, lymphocyte 55%, granulocyte 1% macrophages 44%, glucose less than 20 total protein 136.
-Gram stain of CSF showing budding yeast.
-BioFire meningitis panel negative for any pathogen including cryptococcus (low sensitivity per ID)
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 A send out CSF antigen test has been ordered.
-ID consulted emergently who have started patient on amphotericin B, was on fluconazole.
-Flucytosine has been started. ID will check levels on Sat.
-Stop ketorolac as simultaneous use can cause nephrotoxicity.
-Will require to closely monitor electrolytes potassium/sodium/magnesium.
2. Acute hyponatremia 2/2 ADH excess
-Sodium is downtrending likely from amphotericin B use
-Stop IV fluid -was providing for prophylactic use for renal protection
-U Na 58, Uosm 393
-Nephrology evaluated and patient provided dose of tolvaptan, Na 133 today.
3. Thyroid nodule
-Patient had been discharged by endocrinology
-Nodule biopsy in 23 was negative for any malignancy
-TSH/FT4 WNL
4. Hyperlipidemia
-Maintained on atorvastatin
5. Generalized weakness
-appropriate for level care
DVT prophylaxis -SCD
Full code
[2024-01-30 13:55] LABS: Lyme Antibody Screen, EIA Negative (Negative)
--- NOTE | 2024-01-30 14:32 | CM ---
Reviewed the chart notes. PT recommending acute rehab. PMR consult pending. CM continues to be available to patient/family and is monitoring medical plan for needs at discharge.
Plan: Discharge plans will depend on the patient's progress.
[2024-01-30 15:00] VITALS: BP 99/51
[2024-01-30] MEDS: TYLENOL 1000 MG PO (15:28)
[2024-01-30] MEDS: BENADRYL 25 MG PO (15:28)
[2024-01-30] MEDS: NSS 500 IV (15:29)
[2024-01-30] MEDS: D5W 10 ML IV ×2 (17:16→20:00)
[2024-01-30] MEDS: AMBISOME 150 MG IV (17:16)
[2024-01-30 19:15] VITALS: BP 94/49
--- NOTE | 2024-01-30 21:47 | W.PN.HOSP.TC ---
Today's Communication/Plan
-
continue to monitor magnesium/ sodium/potassium levels/ kidney function due to possible side effects of amphotericin B
f/u with ID for the pending fungal culture
Assessment / Plan
Assessment / Plan
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
- CT head on 01/17- no acute intracranial abnormalities
- Brain MRI 01/25- no evidence of acute infarct/bleed
- EEG ( 01/27)- no evidence of seizures recorded
- Continue Pt/OT - patients balance/ coordination is off
- Lumbar puncture showed opening pressure- 25, 20 cc of CSF collected, WBC count of 45, Lymphocytes 5%, granulocyte 1%, macrophages 44%, glucose <20, total protein 136
- continue on Amphotericin B and fluconazole ( 3rd day), continue to monitor patient in the hospital for duration of treatment to monitor for side effects
- Todays sodium is 133 ( trending upwards), kidney function is normal, continue to monitor the sodium/potassium level
- Flucytosine will also be started
- Gram stain shows many budding yeasts
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
- Fungal blood culture pending
- F/u with ID pending the culture results for further treatment
Hyponatremia
- Na level 133- (01/29) morning time
- 40 oz fluid restriction
- Continue [facility] that nephrology ordered
- f/u nephrology
Thyroid nodule
-Patient had been discharged by endocrinology
-Nodule biopsy in 23 was negative for any malignancy
-TSH/FT4 WNL
Hyperlipidemia
-continue on atorvastatin
Generalized weakness
- no evidence of current infection
-chest xray- normal
- UA is normal
-COVID-negative
Anticipated Discharge: 24 - 48 hours
Subjective/Interval History
-
Date of Service: January 30, 2024
pt has no overnight complaints and is feeling much better.
Objective Data
-
Vital Signs:
Vital Signs
Temp Pulse Resp BP Pulse Ox
97.5 F 65 18 94/49 98
01/30/24 19:15 01/30/24 19:15 01/30/24 19:15 01/30/24 19:15 01/30/24 19:15
I&O
01/29/24 01/30/24 01/31/24
06:59 06:59 06:59
Intake Total 1500 / 1500 600 / 600 1490 / 1490
Output Total 200 / 200 1525 / 1525 750 / 750
Balance 1300 / 1300 -925 / -925 740 / 740
Review of Systems
-
History Source: Patient
All other systems: Reviewed and negative
Physical Exam
-
General: Well Developed and Well Nourished
HEENT: Normocephalic and Atraumatic
Respiratory: Clear to Auscultation
Cardiac: Regular Rhythm and S1/S2
GI: Soft, Nontender and Nondistended
Musculoskeletal: No Edema
Skin: Warm and Dry
Neuro: Awake, Alert, Oriented and AO x 3
Psych: Calm
Data Reviewed
-
Medical Tests (Nuc Med, Echo etc): Image personally visualized and interpreted
Labs: Labs Reviewed by me and Discussed with Physician
[2024-01-30 23:08] LABS: Vitamin B1, Whole Blood 212 nmol/L (70-180)
[2024-01-30 23:32] VITALS: BP 123/69
[2024-01-31 03:30] VITALS: BP 135/72
[2024-01-31 07:02] LABS: Blood Urea Nitrogen 34 mg/dl (9-20); Calcium 9.8 mg/dl (8.4-10.2); Carbon Dioxide 24 mmol/L (22-30); Chloride 95 mmol/L (98-107); Estimated Creatinine Clearance 35 ml/min; Glucose 106 mg/dl (70-99); Magnesium 2.2 mg/dl (1.6-2.3); Potassium 4.4 mmol/L (3.5-5.1); Sodium 134 mmol/L (135-145); eGFR 43.29
[2024-01-31 07:30] VITALS: BP 109/69
[2024-01-31 08:23] LABS: Hematocrit 38.6 % (39.0-52.0); Hemoglobin 14.2 g/dL (13.0-18.0); Mean Corp Hgb Conc. 36.8 g/dL (33.0-37.0); Mean Corpuscular Hgb 33.6 pg (27.0-31.0); Mean Corpuscular Volume 91.3 fL (80.0-94.0); Mean Platelet Volume 9.4 fL (7.4-10.4); Platelet Count 201 10^3/uL (130-400); Red Blood Cell Count 4.23 10^6/uL (4.70-6.10); Red Cell Dist. Width 12.1 % (11.5-14.5)
[2024-01-31] MEDS: LIPITOR 20 MG PO (08:47)
[2024-01-31] MEDS: LOW STRENGTH ASPIRIN 81 MG PO (08:47)
[2024-01-31] MEDS: MAGNESIUM OXIDE 500 MG PO (08:47)
[2024-01-31] MEDS: [UNRECOGNIZED DRUG - OTHER] 1500 MG PO ×2 (08:47→19:48)
--- NOTE | 2024-01-31 10:36 | W.PN.NEPH.PH ---
Today's Communication / Plan
-
Follow-up BMP
Observe for now
Maintain bladder scan intermittently
I do not feel strongly about adding IV fluids as patient is eating and drinking
If blood pressure would drop again we can provide volume boluses as needed
Assessment/Plan
-
Assessment
Hyponatremia
Fungal meningitis
Hyperlipidemia
WAI
Plan
now with WAI as creatinine up to 1.6 from 9, remains grossly non oliguric
WAI likely from hypotension observed overnight
BP stable now
Apparently postvoid bladder scan was 190 cc
sodium up to 134 after samsca times two
follow BMP
antifungals per ID, await identification of organism
-
-
Date of Service: January 31, 2024
CC / HPI / ROS
-
Chief Complaint:
hyponatremia
History of Present Illness:
Na up to 134 with samsca
on lipid amphoB for fungal meningitis
Hypotension noted overnight
Creatinine up to 1.6 but nonoliguric
Review of Systems:
no CP/SOB
Nonoliguric
No fevers
Labs
-
Labs:
WBC 9.0 10^3/uL (4.8-10.8) 01/31/24 07:58
RBC 4.23 10^6/uL (4.70-6.10) L 01/31/24 07:58
Hgb 14.2 g/dL (13.0-18.0) 01/31/24 07:58
Hct 38.6 % (39.0-52.0) L 01/31/24 07:58
Plt Count 201 10^3/uL (130-400) 01/31/24 07:58
Sodium 134 mmol/L (135-145) L 01/31/24 05:26
Potassium 4.4 mmol/L (3.5-5.1) 01/31/24 05:26
Chloride 95 mmol/L (98-107) L 01/31/24 05:26
Carbon Dioxide 24 mmol/L (22-30) 01/31/24 05:26
BUN 34 mg/dl (9-20) H 01/31/24 05:26
Creatinine 1.6 mg/dL (0.7-1.3) H 01/31/24 05:26
eGFR 43.29 01/31/24 05:26
Glucose 106 mg/dl (70-99) H 01/31/24 05:26
Calcium 9.8 mg/dl (8.4-10.2) 01/31/24 05:26
Albumin 4.0 g/dl (3.5-5.0) 01/30/24 07:53
Physical Exam
-
Vital Signs:
Vital Signs
Temp Pulse Resp BP Pulse Ox
98.2 F 72 14 109/69 97
01/31/24 07:30 01/31/24 07:30 01/31/24 07:30 01/31/24 07:30 01/31/24 07:30
Cardiovascular:: Regular rate and rhythm
Respiratory:: Bilateral: Coarse
Lung Excursion:: Normal
Abdomen:: Nontender and Soft
Bowel Sounds:: Normal
Extremity Edema:: None: Bilateral:
--- NOTE | 2024-01-31 11:37 | W.PN.ID1 ---
Date of Service
Date of Service: January 31, 2024
Today's Communication
Continue abx. See below.
Assessment / Plan
Fungal Meningitis
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
- 01/27 LP opening pressure was 25 mmH2O and 20 ccs of CSF was collected
- daily assessment, as patient remains well do not plan an additional LP today
- CSF wbc 45, rbc 6, lymphocytes 55%, macrophages 44%, glucose <20, t protein 136, csf gram stain many budding yeast,
- CRAG (cryptococcal antigen) on CSF was listed as incomplete, spoke with lab and it will be called in to [facility] stat; biofire meningitis panel negative for crypto but low sensitivity
- fungal culture CSF in progress
- blood cultures x2 in progress
--> continue lipo ampho B 3 mg/kg daily
- daily mag levels, K, Ca, Na
- aggressive K repletion to 4.0+ PRN
- preemptively started mag replacement - continue
- avoid nephrotoxic agents as feasible
- pretreatment benadryl, tylenol
- daily assessment, if hyponatremia/volume status allows, would order 500 CCs of NS as pretreatment
--> c/w flucytosine 25 mg/kg/dose; changing to q12 given rise in Cr.
- follow CBC and CMP daily
- Will be checking send out levels
- hyponatremia, further management per nephrology/IM services
- follow clinically
Chief Complaint
-: Other (fungal meningitis)
Subjective / Review of Systems
Review of Systems: No Fever, No Chills, No Headache and No Stiff Neck
Vital Signs / Physical Exam
Vital Signs
Vital Signs
Temp Pulse Resp BP Pulse Ox
98.2 F 72 14 109/69 97
01/31/24 07:30 01/31/24 07:30 01/31/24 07:30 01/31/24 07:30 01/31/24 08:10
Physical Exam
Constitutional: No Acute Distress, Comfortable and Non-toxic
Eyes: No Conjunctival Hemorrhage
Cardiovascular: S1/S2; Negative S3/S4 or Murmur
Pulmonary: Non Labored
Gastrointestinal: Soft and Non Tender
Neurological: Awake, Alert, Oriented and AO x 3; Negative Meningeal Signs
Psychological: Calm
Objective Data
Lab Data
Lab Results
01/31/24 07:58
01/31/24 05:26
ESR 6 mm/hour (0-20) 01/26/24 13:48
PT 14.7 Sec (11.4-14.6) H 01/28/24 10:25
INR 1.14 01/28/24 10:25
Estimated Creat Clear 35 ml/min 01/31/24 05:26
Total Bilirubin 1.2 mg/dl (0.2-1.3) 01/30/24 07:53
AST 17 U/L (17-59) 01/30/24 07:53
ALT 16 U/L (0-50) 01/30/24 07:53
Alkaline Phosphatase 64 U/L (38-126) 01/30/24 07:53
Most recent labs reviewed.
Micro Results:
01/28/24 13:45 CSF Culture - Preliminary
Csf Yeast
Gram Stain - Preliminary
01/29/24 11:11 Blood Culture - Preliminary
Blood/Venous No Growth in 48 hours- Final report to follow
01/29/24 04:53 Blood Culture - Preliminary
Blood/Venous No Growth in 48 hours- Final report to follow
01/26/24 13:45 Acid Fast Bacilli Smear - Preliminary
Csf Acid Fast Bacilli Culture - Preliminary
01/28/24 15:35 Fungus Mold Identification - Pending
Csf
01/28/24 13:45 Fungal Culture - Preliminary
Csf Yeast
01/25/24 19:50 Salmonella/Shigella Culture - Final
Feces/Stool No Salmonella, Shigella, Aeromonas or Plesiomonas species
isolated.
Campylobacter Culture - Final
No Campylobacter species isolated.
Shiga Toxin Test - Final
No E. coli Shiga Toxin 1 or 2 detected.
Stool Leukocytes - Final
01/28/24 13:45 Meningitis/Encephalitis Panel (PCR) - Final
Csf
Care Review
Plan reviewed with: Physician (Nephrology) and Other (Clinical pharmacist)
[2024-01-31 13:05] LABS: C.neoformans Antigen Positive (Negative)
--- NOTE | 2024-01-31 13:43 | W.PN.HOSP.TC ---
Addendum entered and electronically signed by Jewel Montaño MD 01/31/24 14:39:
I saw and evaluated the patient. I reviewed the resident�s note and agree with findings and plan as documented in the resident�s note.
No fever/headache/nausea/vomiting overnight
1. Cryptococcal meningitis
-New onset of ataxia on top of some slowly developing weakness for last 2 weeks.
-No nystagmus/vertigo/dizziness. some difficulty doing finger nose test on both sides.
-MRI brain with and without contrast negative for any acute abnormality
-Patient lumbar puncture reported showing increased WBC count of 45, lymphocyte 55%, granulocyte 1% macrophages 44%, glucose less than 20 total protein 136.
-Gram stain of CSF showing budding yeast. Fungal culture growing Yeast. Furhter ID pending
-[employer] meningitis panel negative for any pathogen including cryptococcus (low sensitivity per ID)
-CSF cryptococcal antigen positive.
-ID consulted emergently who have started patient on amphotericin B, was on fluconazole.
-Flucytosine has been started. ID will check levels on Sat.
-Stop ketorolac as simultaneous use can cause nephrotoxicity.
-Will require to closely monitor electrolytes potassium/sodium/magnesium.
2. Acute hyponatremia 2/2 ADH excess
-Sodium is downtrending likely from amphotericin B use
-Stop IV fluid -was providing for prophylactic use for renal protection
-U Na 58, Uosm 393
-Nephrology following.
3. Thyroid nodule
-Patient had been discharged by endocrinology
-Nodule biopsy in was negative for any malignancy
-TSH/FT4 WNL
4. WAI
-Cr trending up
-Discussed with nephro and would hold any further IVF
-suspected hypotension related
4. Hyperlipidemia
-Maintained on atorvastatin
5. Generalized weakness
-appropriate for level care
DVT prophylaxis -SCD
Full code
Original Note:
Today's Communication/Plan
-
continue to f/u with nephrology for the duration of treatment to monitor his kidney function
continue to f/u with ID
Follow up BMP and maintain bladder scans
Assessment / Plan
Assessment / Plan
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
- CT head on 01/17- no acute intracranial abnormalities
- Brain MRI 01/25- no evidence of acute infarct/bleed
- EEG ( 01/27)- no evidence of seizures recorded
- Continue Pt/OT - patients balance/ coordination is off
- Lumbar puncture showed opening pressure- 25, 20 cc of CSF collected, WBC count of 45, Lymphocytes 5%, granulocyte 1%, macrophages 44%, glucose <20, total protein 136
- continue on Amphotericin B and fluconazole ( 4th day), continue to monitor patient in the hospital for duration of treatment to monitor for side effects
- Flucytosine will also be started
- Gram stain shows many budding yeasts
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
- send out CSF test shows growth of Cryptococcus antigen (01/30)
- ID consulted (01/30)- advised to continue the current dosage of lipo amphotericin 3 mg/kg, and c/w flucytosine 25mg/kg/dose.
- Due to side effect of medication observe the daily mag, K, Ca, Na, CBC, CMP
Hyponatremia
- Na level 134- (01/30) morning time
- His creatinine level was 1.6 (01/30) from 0.9 (01/29)
- 40 oz fluid restriction
- Continue samsca that nephrology ordered
- Nephrology consulted (01/30) - advised follow up BMP, holding off on IV fluids, and doing intermittent bladder scans. If
blood pressure drops we can order a volume bolus as needed
Thyroid nodule
-Patient had been discharged by endocrinology
-Nodule biopsy in was negative for any malignancy
-TSH/FT4 WNL
Hyperlipidemia
-continue on atorvastatin
Generalized weakness
- no evidence of current infection
-chest xray- normal
- UA is normal
-COVID-negative
Anticipated Discharge: 24 - 48 hours
Subjective/Interval History
-
Date of Service: January 31, 2024
pt feels better and has no acute complaints. He had several episodes of hypotension overnight where 94/49, 99/51. 97/59.
Objective Data
-
Labs:
Laboratory Results
01/31/24 01/31/24
05:26 07:58
WBC 9.0
Hgb 14.2
Hct 38.6 L
Plt Count 201
Sodium 134 L
Potassium 4.4
Chloride 95 L
Carbon Dioxide 24
BUN 34 H
Creatinine 1.6 H
Glucose 106 H
Calcium 9.8
Vital Signs:
Vital Signs
Temp Pulse Resp BP Pulse Ox
98.2 F 72 14 109/69 97
01/31/24 07:30 01/31/24 07:30 01/31/24 07:30 01/31/24 07:30 01/31/24 08:10
I&O
01/30/24 01/31/24 02/01/24
06:59 06:59 06:59
Intake Total 600 / 600 2210 / 2210
Output Total 1525 / 1525 1425 / 1425
Balance -925 / -925 785 / 785
Review of Systems
-
History Source: Patient
All other systems: Reviewed and negative
Physical Exam
-
General: Well Developed and Well Nourished
HEENT: Normocephalic and Atraumatic
Respiratory: Clear to Auscultation
Cardiac: Regular Rhythm and S1/S2
Musculoskeletal: No Edema
Skin: Warm and Dry
Neuro: Awake, Alert, Oriented and AO x 3
Psych: Calm
Data Reviewed
-
Labs: Labs Reviewed by me and Discussed with Physician
[2024-01-31 15:15] VITALS: BP 125/64
[2024-01-31] MEDS: TYLENOL 1000 MG PO (15:35)
[2024-01-31] MEDS: BENADRYL 25 MG PO (15:35)
[2024-01-31] MEDS: AMBISOME 150 MG IV (16:36)
[2024-01-31] MEDS: D5W 10 ML IV ×2 (16:36→18:28)
[2024-01-31 23:19] VITALS: BP 108/61
[2024-02-01 07:20] VITALS: BP 124/80
[2024-02-01 07:50] LABS: ALT (SGPT) 19 U/L (0-50); AST (SGOT) 22 U/L (17-59); Albumin 3.6 g/dl (3.5-5.0); Alkaline Phosphatase 67 U/L (38-126); Blood Urea Nitrogen 40 mg/dl (9-20); Carbon Dioxide 25 mmol/L (22-30); Chloride 94 mmol/L (98-107); Estimated Creatinine Clearance 26 ml/min; Glucose 96 mg/dl (70-99); Magnesium 2.3 mg/dl (1.6-2.3); Potassium 4.4 mmol/L (3.5-5.1); Sodium 133 mmol/L (135-145); Total Protein 5.9 g/dl (6.3-8.2); eGFR 31.23
[2024-02-01] MEDS: LOW STRENGTH ASPIRIN 81 MG PO (07:52)
[2024-02-01] MEDS: [UNRECOGNIZED DRUG - OTHER] 1500 MG PO (07:52)
[2024-02-01] MEDS: LIPITOR 20 MG PO (07:52)
[2024-02-01] MEDS: MAGNESIUM OXIDE 500 MG PO (07:52)
--- NOTE | 2024-02-01 08:57 | W.PN.NEPH.PH ---
Today's Communication / Plan
-
500 cc normal saline bolus
Check postvoid bladder scan
Assessment/Plan
-
Assessment
Hyponatremia
Fungal meningitis
Hyperlipidemia
WAI
Plan
now with WAI as creatinine up to 2.1 from 0.9, remains grossly non oliguric
Will continue to check bladder scans to evaluate for obstructive component
Will provide normal saline 500 cc bolus for possible prerenal STEMI
WAI likely from hypotension but I am also concerned about Amphotericin nephrotoxicity, discussed with ID and we will monitor for now
BP stable now
Apparently postvoid bladder scan was 190 cc
sodium up to 133 after samsca times two with last does on 01/30
follow BMP
antifungals per ID, re: cryptococcus
-
-
Date of Service: February 01, 2024
CC / HPI / ROS
-
Chief Complaint:
hyponatremia
History of Present Illness:
Na up to 133 with samsca
on lipid amphoB for fungal meningitis
Hemodynamically more
Creatinine up to 2.1 but nonoliguric
Review of Systems:
no CP/SOB
Nonoliguric
No fevers
Labs
-
Labs:
Sodium 133 mmol/L (135-145) L 02/01/24 06:35
Potassium 4.4 mmol/L (3.5-5.1) 02/01/24 06:35
Chloride 94 mmol/L (98-107) L 02/01/24 06:35
Carbon Dioxide 25 mmol/L (22-30) 02/01/24 06:35
BUN 40 mg/dl (9-20) H 02/01/24 06:35
Creatinine 2.1 mg/dL (0.7-1.3) H 02/01/24 06:35
eGFR 31.23 02/01/24 06:35
Glucose 96 mg/dl (70-99) 02/01/24 06:35
Calcium 10.0 mg/dl (8.4-10.2) 02/01/24 06:35
Albumin 3.6 g/dl (3.5-5.0) 02/01/24 06:35
Physical Exam
-
Vital Signs:
Vital Signs
Temp Pulse Resp BP Pulse Ox
98.2 F 65 17 108/61 98
01/31/24 23:19 01/31/24 23:19 01/31/24 23:19 01/31/24 23:19 01/31/24 23:19
Cardiovascular:: Regular rate and rhythm
Respiratory:: Bilateral: Coarse
Lung Excursion:: Normal
Abdomen:: Nontender and Soft
Bowel Sounds:: Normal
Extremity Edema:: None: Bilateral:
[2024-02-01 09:01] LABS: Hematocrit 40.7 % (39.0-52.0); Hemoglobin 14.8 g/dL (13.0-18.0); Mean Corp Hgb Conc. 36.4 g/dL (33.0-37.0); Mean Corpuscular Hgb 34.1 pg (27.0-31.0); Mean Corpuscular Volume 93.8 fL (80.0-94.0); Mean Platelet Volume 10.6 fL (7.4-10.4); Platelet Count 159 10^3/uL (130-400); Red Blood Cell Count 4.34 10^6/uL (4.70-6.10); Red Cell Dist. Width 12.1 % (11.5-14.5); White Blood Cell Count 9.6 10^3/uL (4.8-10.8)
[2024-02-01] MEDS: NSS 500 IV (10:02)
--- NOTE | 2024-02-01 11:06 | W.PN.ID1 ---
Date of Service
Date of Service: February 01, 2024
Today's Communication
Continue with current antibiotics. See below�
Assessment / Plan
Cryptococcal meningitis (immunocompetent patient)
-Confirmed on antigen testing of CSF.
WAI
--> continue lipo ampho B 3 mg/kg daily
- daily mag levels, K, Ca, Na
- aggressive K repletion to 4.0+ PRN
- preemptively started mag replacement - continue
- avoid nephrotoxic agents as feasible
- pretreatment benadryl, tylenol
- daily assessment, if hyponatremia/volume status allows, would order 500 CCs of NS as pretreatment
- For fluid boluses today to see if it helps creatinine.
--> c/w flucytosine with dosing based upon creatinine.
- follow CBC and CMP daily
- Will be checking send out levels
- hyponatremia, further management per nephrology/IM services
- follow clinically
����������������������������������������������������������
Chief Complaint
-: Other (fungal meningitis)
Subjective / Review of Systems
Review of Systems: No Fever, No Chills and No Headache
Vital Signs / Physical Exam
Vital Signs
Vital Signs
Temp Pulse Resp BP Pulse Ox
99.5 F 69 16 124/80 100
02/01/24 07:20 02/01/24 07:20 02/01/24 07:20 02/01/24 07:20 02/01/24 07:20
Physical Exam
Constitutional: No Acute Distress, Comfortable and Non-toxic
Eyes: Sclera Anicteric
Pulmonary: Non Labored
Gastrointestinal: Soft and Non Tender
Neurological: Awake, Alert, Oriented and AO x 3; Negative Meningeal Signs
Psychological: Calm
Objective Data
Lab Data
Lab Results
02/01/24 06:35
02/01/24 06:35
ESR 6 mm/hour (0-20) 01/26/24 13:48
PT 14.7 Sec (11.4-14.6) H 01/28/24 10:25
INR 1.14 01/28/24 10:25
Estimated Creat Clear 26 ml/min 02/01/24 06:35
Total Bilirubin 1.0 mg/dl (0.2-1.3) 02/01/24 06:35
AST 22 U/L (17-59) 02/01/24 06:35
ALT 19 U/L (0-50) 02/01/24 06:35
Alkaline Phosphatase 67 U/L (38-126) 02/01/24 06:35
Most recent labs reviewed.
Micro Results:
01/29/24 04:53 Blood Culture - Preliminary
Blood/Venous No Growth in 72 hours- Final report to follow
01/28/24 15:35 Fungus Mold Identification - Preliminary
Csf
01/28/24 13:45 CSF Culture - Preliminary
Csf Yeast
Gram Stain - Preliminary
01/29/24 11:11 Blood Culture - Preliminary
Blood/Venous No Growth in 48 hours- Final report to follow
01/26/24 13:45 Acid Fast Bacilli Smear - Preliminary
Csf Acid Fast Bacilli Culture - Preliminary
01/28/24 13:45 Fungal Culture - Preliminary
Csf Yeast
01/25/24 19:50 Salmonella/Shigella Culture - Final
Feces/Stool No Salmonella, Shigella, Aeromonas or Plesiomonas species
isolated.
Campylobacter Culture - Final
No Campylobacter species isolated.
Shiga Toxin Test - Final
No E. coli Shiga Toxin 1 or 2 detected.
Stool Leukocytes - Final
01/28/24 13:45 Meningitis/Encephalitis Panel (PCR) - Final
Csf
Care Review
Plan reviewed with: Physician (Nephrology; Clinical Infectious Diseases Pharmacist)
--- NOTE | 2024-02-01 12:51 | W.PN.UPDATE ---
Update Note
Progress Note Update
I saw and evaluated the patient. I reviewed the resident�s note and agree with findings and plan as documented in the resident�s note.
No new complains reported overnight
Patient able to ambulate without much issues.
1. Cryptococcal meningitis
-New onset of ataxia on top of some slowly developing weakness for last 2 weeks.
-No nystagmus/vertigo/dizziness. some difficulty doing finger nose test on both sides.
-MRI brain with and without contrast negative for any acute abnormality
-Patient lumbar puncture reported showing increased WBC count of 45, lymphocyte 55%, granulocyte 1% macrophages 44%, glucose less than 20 total protein 136.
-Gram stain of CSF showing budding yeast. Fungal culture growing Yeast. Furhter ID pending
-CSF meningitis panel negative for any pathogen including cryptococcus (low sensitivity per ID)
-CSF cryptococcal antigen send out test positive.
-Maintain on Liposomal Amphotericin B.
-Flucytosine has been started. ID will check levels on Mon. Dose if flucytosine has been lowered today
-Will require to closely monitor electrolytes potassium/sodium/magnesium.
2. WAI
-Cr trending up
-Discussed with nephrology and suspected hypotension related
-Amphotericin B related nephrotoxicity is potential concern
-Getting 500ml NS fluid by nephrology
-F/u cr, slowly trending up.
3. Acute hyponatremia 2/2 ADH excess
-Sodium is downtrending likely from amphotericin B use
-Stop IV fluid -was providing for prophylactic use for renal protection
-U Na 58, Uosm 393
-Nephrology following.
4. Hyperlipidemia
-Maintained on atorvastatin
5. Generalized weakness
-appropriate for level care
6. Thyroid nodule
-Patient had been discharged by endocrinology
-Nodule biopsy in 23 was negative for any malignancy
-TSH/FT4 WNL
DVT prophylaxis -SCD
Full code
[2024-02-01 13:31] LABS: CSF VDRL (T. pallidum) Non Reactive (Non Reactive)
[2024-02-01 15:10] VITALS: BP 118/71
[2024-02-01] MEDS: BENADRYL 25 MG PO (15:22)
[2024-02-01] MEDS: TYLENOL 1000 MG PO (15:22)
--- NOTE | 2024-02-01 15:31 | W.PN.HOSP.TC ---
Today's Communication/Plan
-
continue patient on current medication regime dose
continue to monitor cbc and cmp
Assessment / Plan
Assessment / Plan
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
- CT head on 01/17- no acute intracranial abnormalities
- Brain MRI 01/25- no evidence of acute infarct/bleed
- EEG ( 01/27)- no evidence of seizures recorded
- Continue Pt/OT - patients balance/ coordination is off
- Lumbar puncture showed opening pressure- 25, 20 cc of CSF collected, WBC count of 45, Lymphocytes 5%, granulocyte 1%, macrophages 44%, glucose <20, total protein 136
- continue on Amphotericin B and fluconazole ( day), continue to monitor patient in the hospital for duration of treatment to monitor for side effect
- Flucytosine was started and dose was adjusted to 25mg/kg to every Q12 because of his rising creatinine levels
- Gram stain shows many budding yeasts
- send out CSF test shows growth of Cryptococcus antigen (01/30)
- ID consulted (01/30)- advised to continue the current dosage of lipo amphotericin 3 mg/kg, and c/w flucytosine 25mg/kg/dose.
- Due to side effect of medication observe the daily mag, K, Ca, Na, CBC, CMP
Hyponatremia
- His creatinine level was 2.1 (01/31) from 1.6 (01/30)- volume bolus given
- Na level 133- (01/31) morning time
- [facility]
- Nephrology consulted (01/30) - advised follow up BMP, holding off on IV fluids, and doing intermittent bladder scans. If
blood pressure drops we can order a volume bolus as needed
Thyroid nodule
-Patient had been discharged by endocrinology
-Nodule biopsy in was negative for any malignancy
-TSH/FT4 WNL
Hyperlipidemia
-continue on atorvastatin
Generalized weakness
- no evidence of current infection
-chest xray- normal
- UA is normal
-COVID-negative
Anticipated Discharge: 24 - 48 hours
Subjective/Interval History
-
Date of Service: February 01, 2024
Pt has no overnight acute complaints.
Objective Data
-
Labs:
Laboratory Results
02/01/24
06:35
WBC 9.6
Hgb 14.8
Hct 40.7
Plt Count 159 D
Sodium 133 L
Potassium 4.4
Chloride 94 L
Carbon Dioxide 25
BUN 40 H
Creatinine 2.1 H
Glucose 96
Calcium 10.0
Total Bilirubin 1.0
AST 22
ALT 19
Alkaline Phosphatase 67
Vital Signs:
Vital Signs
Temp Pulse Resp BP Pulse Ox
99.5 F 69 16 124/80 100
02/01/24 07:20 02/01/24 07:20 02/01/24 07:20 02/01/24 07:20 02/01/24 07:20
I&O
01/31/24 02/01/24 02/02/24
06:59 06:59 06:59
Intake Total 2210 / 2210 1880 / 1880
Output Total 1425 / 1425 840 / 840
Balance 785 / 785 1040 / 1040
Review of Systems
-
History Source: Patient
All other systems: Reviewed and negative
Physical Exam
-
General: Well Developed, Well Nourished and No Apparent Distress
HEENT: Normocephalic and Atraumatic
Respiratory: Clear to Auscultation
Cardiac: Regular Rhythm and S1/S2
GI: Soft, Nontender and Nondistended
Musculoskeletal: No Edema
Skin: Warm and Dry
Neuro: Awake, Alert and Oriented
Psych: Calm
Data Reviewed
-
Labs: Labs Reviewed by me and Discussed with Physician
[2024-02-01] MEDS: AMBISOME 150 MG IV (16:21)
[2024-02-01] MEDS: D5W 10 ML IV ×2 (16:21→18:36)
[2024-02-01 23:13] VITALS: BP 107/55
[2024-02-02 07:06] LABS: Hematocrit 38.7 % (39.0-52.0); Hemoglobin 14.1 g/dL (13.0-18.0); Mean Corp Hgb Conc. 36.4 g/dL (33.0-37.0); Mean Corpuscular Hgb 34.1 pg (27.0-31.0); Mean Corpuscular Volume 93.5 fL (80.0-94.0); Mean Platelet Volume 8.8 fL (7.4-10.4); Platelet Count 193 10^3/uL (130-400); Red Blood Cell Count 4.14 10^6/uL (4.70-6.10); White Blood Cell Count 9.7 10^3/uL (4.8-10.8)
[2024-02-02 07:15] VITALS: BP 138/85
[2024-02-02 07:22] LABS: ALT (SGPT) 17 U/L (0-50); AST (SGOT) 20 U/L (17-59); Albumin 3.3 g/dl (3.5-5.0); Alkaline Phosphatase 66 U/L (38-126); Blood Urea Nitrogen 44 mg/dl (9-20); Calcium 9.8 mg/dl (8.4-10.2); Carbon Dioxide 25 mmol/L (22-30); Chloride 96 mmol/L (98-107); Estimated Creatinine Clearance 23 ml/min; Glucose 102 mg/dl (70-99); Magnesium 2.2 mg/dl (1.6-2.3); Potassium 4.5 mmol/L (3.5-5.1); Sodium 134 mmol/L (135-145); Total Bilirubin 0.8 mg/dl (0.2-1.3); Total Protein 5.5 g/dl (6.3-8.2); eGFR 26.61
[2024-02-02] MEDS: LIPITOR 20 MG PO (08:44)
[2024-02-02] MEDS: MAGNESIUM OXIDE 500 MG PO (08:44)
[2024-02-02] MEDS: [UNRECOGNIZED DRUG - OTHER] 1500 MG PO (08:44)
[2024-02-02] MEDS: LOW STRENGTH ASPIRIN 81 MG PO (08:44)
[2024-02-02] MEDS: NSS 1000 IV ×2 (11:14→23:42)
--- NOTE | 2024-02-02 11:23 | W.PN.ID1 ---
Date of Service
Date of Service: February 02, 2024
Today's Communication
Continue amphotericin B. Discontinue further flucytosine. Continue to monitor creatinine
Assessment / Plan
Cryptococcal meningitis (immunocompetent patient)
-Confirmed on antigen testing of CSF.
- blood cultures from 01/28 now positive for budding yeast
WAI
- cr up today.
--> continue lipo ampho B 3 mg/kg daily
- daily mag levels, K, Ca, Na
- aggressive K repletion to 4.0+ PRN
- preemptively started mag replacement - continue
- avoid nephrotoxic agents as feasible
- pretreatment benadryl, tylenol
- daily assessment, if hyponatremia/volume status allows, would order 500 CCs of NS as pretreatment
- For fluid boluses today to see if it helps creatinine.
--> given worsening renal function, will discontinue
- follow CBC and CMP daily
- hyponatremia, further management per nephrology/IM services
- follow clinically
Case discussed with Hospitalist, along with Nephrology.
Current clinical and laboratory findings discussed extensively with patient and who is at the bedside.
Rationale for antifungal selection and modifications discussed with them, along with risks and benefits of treatments versus treatment modifications.
Ample time given for questions, and all questions answered to their satisfaction.
����������������������������������������������������������
Chief Complaint
-: Other (fungal meningitis)
Subjective / Review of Systems
Review of Systems: No Fever and No Chills
Vital Signs / Physical Exam
Vital Signs
Vital Signs
Temp Pulse Resp BP Pulse Ox
98.4 F 68 16 138/85 97
02/02/24 07:15 02/02/24 07:15 02/02/24 07:15 02/02/24 07:15 02/02/24 08:00
Physical Exam
Constitutional: No Acute Distress, Comfortable and Non-toxic
Eyes: No Conjunctival Hemorrhage and Sclera Anicteric
Pulmonary: Non Labored
Gastrointestinal: Soft and Non Tender
Neurological: Awake, Alert, Oriented and AO x 3; Negative Meningeal Signs
Psychological: Calm
Objective Data
Lab Data
Lab Results
02/02/24 06:34
02/02/24 06:34
ESR 6 mm/hour (0-20) 01/26/24 13:48
PT 14.7 Sec (11.4-14.6) H 01/28/24 10:25
INR 1.14 01/28/24 10:25
Estimated Creat Clear 23 ml/min 02/02/24 06:34
Total Bilirubin 0.8 mg/dl (0.2-1.3) 02/02/24 06:34
AST 20 U/L (17-59) 02/02/24 06:34
ALT 17 U/L (0-50) 02/02/24 06:34
Alkaline Phosphatase 66 U/L (38-126) 02/02/24 06:34
Most recent labs reviewed.
Micro Results:
01/29/24 11:11 Blood Culture - Preliminary
Blood/Venous Positive culture in progress
Gram Stain - budding yeast
01/28/24 13:45 CSF Culture - Final
Csf Yeast
Gram Stain - Final
01/29/24 04:53 Blood Culture - Preliminary
Blood/Venous No Growth in 4 days- Final report to follow
01/28/24 15:35 Fungus Mold Identification - Preliminary
Csf Cryptococcus neoformans
01/26/24 13:45 Acid Fast Bacilli Smear - Preliminary
Csf Acid Fast Bacilli Culture - Preliminary
01/28/24 13:45 Fungal Culture - Preliminary
Csf Yeast
01/25/24 19:50 Salmonella/Shigella Culture - Final
Feces/Stool No Salmonella, Shigella, Aeromonas or Plesiomonas species
isolated.
Campylobacter Culture - Final
No Campylobacter species isolated.
Shiga Toxin Test - Final
No E. coli Shiga Toxin 1 or 2 detected.
Stool Leukocytes - Final
01/28/24 13:45 Meningitis/Encephalitis Panel (PCR) - Final
Csf
--- NOTE | 2024-02-02 11:39 | W.PN.NEPH.PH ---
Today's Communication / Plan
-
Fluid restriction adjusted
Normal saline administered at 100 cc/h
Follow BMP
Discussed with patient infectious disease and hospitalist
Assessment/Plan
-
Assessment
Hyponatremia
Fungal meningitis
Hyperlipidemia
WAI
Plan
now with WAI as creatinine up to 2.4 from 0.9, remains grossly non oliguric
No evidence of obstruction by multiple bladder scans
Will provide normal saline at 100 cc/h and to increase sodium load in setting of Amphotericin administration
WAI likely secondary to Amphotericin nephrotoxicity, discussed with ID and we will monitor for now
BP stable now
Sodium up to 134 I will adjust fluid restriction
follow BMP
antifungals per ID, re: cryptococcus
-
-
Date of Service: February 02, 2024
CC / HPI / ROS
-
Chief Complaint:
hyponatremia
History of Present Illness:
Na up to 134with samsca
on lipid amphoB for fungal meningitis
Hemodynamically more
Creatinine up to 2.4 but nonoliguric
Review of Systems:
no CP/SOB
Nonoliguric
No fevers
Labs
-
Labs:
WBC 9.7 10^3/uL (4.8-10.8) 02/02/24 06:34
RBC 4.14 10^6/uL (4.70-6.10) L 02/02/24 06:34
Hgb 14.1 g/dL (13.0-18.0) 02/02/24 06:34
Hct 38.7 % (39.0-52.0) L 02/02/24 06:34
Plt Count 193 10^3/uL (130-400) D 02/02/24 06:34
Sodium 134 mmol/L (135-145) L 02/02/24 06:34
Potassium 4.5 mmol/L (3.5-5.1) 02/02/24 06:34
Chloride 96 mmol/L (98-107) L 02/02/24 06:34
Carbon Dioxide 25 mmol/L (22-30) 02/02/24 06:34
BUN 44 mg/dl (9-20) H 02/02/24 06:34
Creatinine 2.4 mg/dL (0.7-1.3) H 02/02/24 06:34
eGFR 26.61 02/02/24 06:34
Glucose 102 mg/dl (70-99) H 02/02/24 06:34
Calcium 9.8 mg/dl (8.4-10.2) 02/02/24 06:34
Albumin 3.3 g/dl (3.5-5.0) L 02/02/24 06:34
Physical Exam
-
Vital Signs:
Vital Signs
Temp Pulse Resp BP Pulse Ox
98.4 F 68 16 138/85 97
02/02/24 07:15 02/02/24 07:15 02/02/24 07:15 02/02/24 07:15 02/02/24 08:00
Cardiovascular:: Regular rate and rhythm
Respiratory:: Bilateral: CTA
Lung Excursion:: Normal
Abdomen:: Nontender and Soft
Bowel Sounds:: Normal
Extremity Edema:: None: Bilateral:
Coughlin Catheter: No
--- NOTE | 2024-02-02 13:13 | W.PN.HOSP.TC ---
Today's Communication/Plan
-
f/u with nephrology
f/u with ID
monitor CBC, CMP
Assessment / Plan
Assessment / Plan
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
- CT head on 01/17- no acute intracranial abnormalities
- Brain MRI 01/25- no evidence of acute infarct/bleed
- EEG ( 01/27)- no evidence of seizures recorded
- Continue Pt/OT - patients balance/ coordination is off
- Lumbar puncture showed opening pressure- 25, 20 cc of CSF collected, WBC count of 45, Lymphocytes 5%, granulocyte 1%, macrophages 44%, glucose <20, total protein 136
- continue on Amphotericin B and fluconazole ( 4th day), continue to monitor patient in the hospital for duration of treatment to monitor for side effect
- Flucytosine was stopped today (02/01)
- send out CSF test shows growth of Cryptococcus antigen (01/30)
- ID consulted (01/30)- advised to continue the current dosage of lipo amphotericin 3 mg/kg, and c/w flucytosine 25mg/kg/dose.
- Due to side effect of medication observe the daily mag, K, Ca, Na, CBC, CMP
- Blood culture (02/01)- gram stain of blood culture reveals budding yeast
Hyponatremia
- His creatinine level was 2.4 (02/01) from 2.1 (01/31)- volume bolus given
- Na level 134- (02/01) morning time
- Continue [facility] that nephrology ordered
- Nephrology consulted (02/01) - advised follow up BMP, holding off on IV fluids, and doing intermittent bladder scans. If
blood pressure drops we can order a volume bolus as needed, will monitor along with ID
Thyroid nodule
-Patient had been discharged by endocrinology
-Nodule biopsy in 23 was negative for any malignancy
-TSH/FT4 WNL
Hyperlipidemia
-continue on atorvastatin
Generalized weakness
- no evidence of current infection
-chest xray- normal
- UA is normal
-COVID-negative
Anticipated Discharge: 24 - 48 hours
Subjective/Interval History
-
Date of Service: February 02, 2024
No overnight events. No acute medical complaints.
Objective Data
-
Labs:
Laboratory Results
02/02/24
06:34
WBC 9.7
Hgb 14.1
Hct 38.7 L
Plt Count 193 D
Sodium 134 L
Potassium 4.5
Chloride 96 L
Carbon Dioxide 25
BUN 44 H
Creatinine 2.4 H
Glucose 102 H
Calcium 9.8
Total Bilirubin 0.8
AST 20
ALT 17
Alkaline Phosphatase 66
Vital Signs:
Vital Signs
Temp Pulse Resp BP Pulse Ox
98.4 F 68 16 138/85 97
02/02/24 07:15 02/02/24 07:15 02/02/24 07:15 02/02/24 07:15 02/02/24 08:00
I&O
02/01/24 02/02/24 02/03/24
06:59 06:59 06:59
Intake Total 1880 / 1880 1490 / 1490
Output Total 840 / 840 1350 / 1350 150 / 150
Balance 1040 / 1040 140 / 140 -150 / -150
Review of Systems
-
History Source: Patient
All other systems: Reviewed and negative
Physical Exam
-
General: No Apparent Distress and Comfortable
HEENT: Normocephalic and Atraumatic
Respiratory: Clear to Auscultation
Cardiac: Regular Rhythm, S1/S2 and Murmur (heard over the aortic area)
GI: Soft, Nontender and Nondistended
Musculoskeletal: No Cyanosis and No Edema
Skin: Warm and Dry
Neuro: Awake, Alert, Oriented and AO x 3
Psych: Calm
Data Reviewed
-
Labs: Labs Reviewed by me and Discussed with Physician
--- NOTE | 2024-02-02 13:18 | W.PN.UPDATE ---
Update Note
Progress Note Update
I saw and evaluated the patient. I reviewed the resident�s note and agree with findings and plan as documented in the resident�s note.
Patient resting comfortably in bed
Afebrile in night.
Denies of having fever/nausea/vomiting
1. Cryptococcal meningitis
Cryptococcal fungemia
-New onset of ataxia on top of some slowly developing weakness for last 2 weeks.
-No nystagmus/vertigo/dizziness. some difficulty doing finger nose test on both sides.
-MRI brain with and without contrast negative for any acute abnormality
-Patient lumbar puncture reported showing increased WBC count of 45, lymphocyte 55%, granulocyte 1% macrophages 44%, glucose less than 20 total protein 136.
-Gram stain of CSF showing budding yeast. Fungal culture growing Yeast. Further ID pending
-CSF meningitis panel negative for any pathogen including cryptococcus (low sensitivity per ID)
-CSF cryptococcal antigen send out test positive.
-Blood culture 1 set growing cryptococcus as well.
-Maintain on Liposomal Amphotericin B.
-Flucytosine has been discontinued today. (got for 5 days)
2. WAI
-Cr trending up
-Discussed with nephrology and suspected hypotension related
-Amphotericin B related nephrotoxicity is potential concern
-Started on NS @ 100mls/hr per nephro discussion
3. Acute hyponatremia 2/2 ADH excess
-Sodium is downtrending likely from amphotericin B use
-Stop IV fluid -was providing for prophylactic use for renal protection
-U Na 58, Uosm 393
-Nephrology following.
4. Hyperlipidemia
-Maintained on atorvastatin
5. Generalized weakness
-appropriate for level care
6. Thyroid nodule
-Patient had been discharged by endocrinology
-Nodule biopsy in 23 was negative for any malignancy
-TSH/FT4 WNL
DVT prophylaxis -SCD
Full code
Total time spent : 53 mins
Case discussed with ID/nephro
[2024-02-02 15:15] VITALS: BP 110/52
[2024-02-02] MEDS: TYLENOL 1000 MG PO (15:43)
[2024-02-02] MEDS: BENADRYL 25 MG PO (15:45)
[2024-02-02] MEDS: AMBISOME 150 MG IV (17:00)
[2024-02-02] MEDS: D5W 10 ML IV ×2 (17:00→19:05)
[2024-02-02 23:16] VITALS: BP 106/54
[2024-02-03] VITALS (19 sets, daily range): BP systolic 122–161; BP diastolic 61–93; BMI 20.5
[2024-02-03 08:01] LABS: Lyme Disease DNA by PCR Not Detected; Lyme Source CSF
[2024-02-03] MEDS: NSS 1000 IV ×2 (08:08→17:39)
[2024-02-03] MEDS: MAGNESIUM OXIDE 500 MG PO (08:09)
[2024-02-03] MEDS: LOW STRENGTH ASPIRIN 81 MG PO (08:09)
[2024-02-03] MEDS: LIPITOR 20 MG PO (08:09)
[2024-02-03 08:16] LABS: Paraneoplastic Ab IgG, CSF None Detected (None Detected)
--- NOTE | 2024-02-03 10:02 | W.PN.ID1 ---
Addendum entered and electronically signed by Kim Walton MD 02/03/24 16:58:
Notified by resident Mr. Juárez with change in mental status, [employer] APPRENTICE called.
Pt currently very lethargic. + nausea and emesis. No TRENT. Vision blurry.
Need urgent LP to measure opening pressure. If elevated > 20cm, remove CSF fluid to reduce OP to <20cm. If OP extremely high >50cm, reduce OP by 50%.
Send repeat CSF crypto antigen to trend titer.
Case discussed with Niurka Penny J Anne, Lenny Tabares.
Original Note:
Date of Service
Date of Service: February 03, 2024
Today's Communication
Continue liposomal ampho.
Repeat blood cx karine.
Assessment / Plan
Cryptococcal meningitis (immunocompetent patient)
-Confirmed on antigen testing of CSF 1:15,334
- blood cultures from 01/28 now positive for budding yeast
WAI
- worse
--> continue lipo ampho B 3 mg/kg daily (no need to adjust dose for renal impairment).
- daily mag levels, K, Ca, Na
- aggressive K repletion to 4.0+ PRN
- preemptively started mag replacement - continue
- avoid nephrotoxic agents as feasible
- pretreatment benadryl, tylenol
- daily assessment for signs and sxs of elevated intracranial pressur.
-repeat blood cx in am
- Follow serum and CSF CRAG titers
--> given worsening renal function, Flucytosine dc'd (received 5 days, last dose 02/01)
Follow renal function
Appreciate nephrology.
- hyponatremia, further management per nephrology/IM services
- follow clinically
����������������������������������������������������������
Chief Complaint
-: Other (fungal meningitis)
Subjective / Review of Systems
Feels a bit better. No TRENT/nausea.
Vital Signs / Physical Exam
Vital Signs
Vital Signs
Temp Pulse Resp BP Pulse Ox
98.9 F 63 16 154/70 96
02/03/24 07:20 02/03/24 07:20 02/03/24 07:20 02/03/24 07:20 02/03/24 07:20
Physical Exam
Constitutional: No Acute Distress
Gastrointestinal: Soft and Non Tender
Extremities: Negative Edema
Neurological: AO x 3; Negative Meningeal Signs (neck supple)
Objective Data
Lab Data
ESR 6 mm/hour (0-20) 01/26/24 13:48
PT 14.7 Sec (11.4-14.6) H 01/28/24 10:25
INR 1.14 01/28/24 10:25
Estimated Creat Clear 23 ml/min 02/02/24 06:34
Total Bilirubin 0.8 mg/dl (0.2-1.3) 02/02/24 06:34
AST 20 U/L (17-59) 02/02/24 06:34
ALT 17 U/L (0-50) 02/02/24 06:34
Alkaline Phosphatase 66 U/L (38-126) 02/02/24 06:34
Most recent labs reviewed.
Micro Results:
01/29/24 04:53 Blood Culture - Final
Blood/Venous No Growth - Final Report
01/28/24 15:35 Fungus Mold Identification - Final
Csf Cryptococcus neoformans
01/29/24 11:11 Blood Culture - Preliminary
Blood/Venous Positive culture in progress
Gram Stain - Preliminary
01/28/24 13:45 CSF Culture - Final
Csf Yeast
Gram Stain - Final
01/26/24 13:45 Acid Fast Bacilli Smear - Preliminary
Csf Acid Fast Bacilli Culture - Preliminary
01/28/24 13:45 Fungal Culture - Preliminary
Csf Yeast
01/25/24 19:50 Salmonella/Shigella Culture - Final
Feces/Stool No Salmonella, Shigella, Aeromonas or Plesiomonas species
isolated.
Campylobacter Culture - Final
No Campylobacter species isolated.
Shiga Toxin Test - Final
No E. coli Shiga Toxin 1 or 2 detected.
Stool Leukocytes - Final
01/28/24 13:45 Meningitis/Encephalitis Panel (PCR) - Final
Csf
Care Review
Plan reviewed with: Physician (Dr. Bynum)
[2024-02-03 10:09] LABS: Hematocrit 38.6 % (39.0-52.0); Hemoglobin 14.5 g/dL (13.0-18.0); Mean Corp Hgb Conc. 37.6 g/dL (33.0-37.0); Mean Corpuscular Hgb 34.2 pg (27.0-31.0); Mean Platelet Volume 11.5 fL (7.4-10.4); Platelet Count 150 10^3/uL (130-400); Red Blood Cell Count 4.24 10^6/uL (4.70-6.10); Red Cell Dist. Width 12.1 % (11.5-14.5); White Blood Cell Count 8.3 10^3/uL (4.8-10.8)
[2024-02-03 10:18] LABS: Blood Urea Nitrogen 40 mg/dl (9-20); Carbon Dioxide 25 mmol/L (22-30); Chloride 98 mmol/L (98-107); Estimated Creatinine Clearance 31 ml/min; Glucose 105 mg/dl (70-99); Magnesium 2.1 mg/dl (1.6-2.3); Potassium 4.5 mmol/L (3.5-5.1); Sodium 134 mmol/L (135-145); eGFR 37.58
--- NOTE | 2024-02-03 12:50 | W.PN.HOSP.TC ---
Addendum entered and electronically signed by Brooklynn Bah MD 02/03/24 13:45:
I saw and evaluated the patient independently. I reviewed the resident�s note and agree with findings and plan as documented by Dr. Sherwood.
GENERAL: well developed, well nourished, male in no apparent distress
HEENT: NC/AT--no O2 requirements
HEART: regular rate and rhythm, +S1, +S2, JACK at right sternal border noted
LUNGS : clear to auscultation bilaterally
ABDOM: soft, nontender, nondistended, + bowel sounds
EXT: no cyanosis, clubbing, or edema
NEUROLOGIC: grossly intact
acute ataxia due to Cryptococcal meningitis with positive blood cultures for same (Cryptococcal fungemia)--MRI brain negative, CT scan cervical spine with severe arthritis--due to concern for possible normal pressure hydrocephalus, LP was done which
was positive for Cryptococcus--pt without risk factors (not HIV, no cancer, no immunosuppression, no biologics)--truly unknown reason why pt has this--apprec ID--cont amphotericin B, follow blood cultures as they are positive too--with heart murmur,
consider ECHO if not already done--Flucytosine started but stopped due to WAI
WAI --creat peaked at 2.4--own to 1.8--cont IVF--apprec nephrology
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
Hyperlipidemia--cont lipitor
Generalized weakness-- PT/OT--likely home at d/c
Thyroid nodule--followed by endocrine but apparently discharged by them--biopsy in 2022 was negative--TSH WNL
DVT prophylaxis
Code status --Full code
Original Note:
Today's Communication/Plan
-
f/u with ID and nephrology
continue to check CMP, CBC
Assessment / Plan
Assessment / Plan
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
- CT head on 01/17- no acute intracranial abnormalities
- Brain MRI 01/25- no evidence of acute infarct/bleed
- EEG ( 01/27)- no evidence of seizures recorded
- Continue Pt/OT - patients balance/ coordination is off
- Lumbar puncture showed opening pressure- 25, 20 cc of CSF collected, WBC count of 45, Lymphocytes 5%, granulocyte 1%, macrophages 44%, glucose <20, total protein 136
- continue on Amphotericin B and fluconazole ( 4th day), continue to monitor patient in the hospital for duration of treatment to monitor for side effect
- Flucytosine was stopped today (02/01)
- send out CSF test shows growth of Cryptococcus antigen (01/30)
- ID consulted (01/30)- advised to continue the current dosage of lipo amphotericin 3 mg/kg, and c/w flucytosine 25mg/kg/dose.
- Due to side effect of medication observe the daily mag, K, Ca, Na, CBC, CMP
- Blood culture (02/01)- gram stain of blood culture reveals budding yeast
- Renal u/s (02/01)- showed renal cysts and prostatomegaly extending into the bladder base
- Repeat blood cultures (02/02)- to see if blood is cleared of fungal pathogen
Hyponatremia
- His creatinine level was 1.8 (02/02) from 2.4 (02/01)- trending down, 100 cc/hr normal saline volume bolus given along with medication
- Na level 134- (02/02) morning time
- Continue [facility] that nephrology ordered
- Nephrology consulted (02/01) - advised follow up BMP, holding off on IV fluids, and doing intermittent bladder scans. If
blood pressure drops we can order a volume bolus as needed, will monitor along with ID
Thyroid nodule
-Patient had been discharged by endocrinology
-Nodule biopsy in was negative for any malignancy
-TSH/FT4 WNL
Hyperlipidemia
-continue on atorvastatin
Generalized weakness
- no evidence of current infection
-chest xray- normal
- UA is normal
-COVID-negative
Anticipated Discharge: 24 - 48 hours
Subjective/Interval History
-
Date of Service: February 03, 2024
Patient has no overnight events. Patient has no acute medical complaints.
Objective Data
-
Labs:
Laboratory Results
02/03/24
08:57
WBC 8.3
Hgb 14.5
Hct 38.6 L
Plt Count 150 D
Sodium 134 L
Potassium 4.5
Chloride 98
Carbon Dioxide 25
BUN 40 H
Creatinine 1.8 H
Glucose 105 H
Calcium 10.0
Vital Signs:
Vital Signs
Temp Pulse Resp BP Pulse Ox
98.9 F 63 16 154/70 96
02/03/24 07:20 02/03/24 07:20 02/03/24 07:20 02/03/24 07:20 02/03/24 08:00
I&O
02/02/24 02/03/24 02/04/24
06:59 06:59 06:59
Intake Total 1490 / 1490 1920 / 1920
Output Total 1350 / 1350 1550 / 1550
Balance 140 / 140 370 / 370
Review of Systems
-
History Source: Patient
All other systems: Reviewed and negative
Physical Exam
-
General: Well Developed, Well Nourished, No Apparent Distress and Comfortable
Respiratory: Clear to Auscultation
Cardiac: Murmur (heard over the aortic area)
GI: Soft and Nondistended
Skin: Warm and Dry
Neuro: Awake, Alert, Oriented and AO x 3
Psych: Calm
Data Reviewed
-
Labs: Labs Reviewed by me and Discussed with Physician
[2024-02-03 14:47] LABS: Cryptococcus Antigen Positive (Negative)
--- NOTE | 2024-02-03 15:04 | W.PN.NEPH.PH ---
Today's Communication / Plan
-
cont IVF NS
Assessment/Plan
-
Assessment
Hyponatremia
Fungal meningitis
Hyperlipidemia
WAI
Plan
WAI-improving cr with IVF, baseline cr 0.9, remains grossly non oliguric
No evidence of obstruction by multiple bladder scans
cont normal saline at 100 cc/h and
suspected Amphotericin nephrotoxicity, however liposomal formulations seem to have less risk
off Flucytocine since 02/01
BP stable now
Sodium up to 134. minimal fluid restriction
follow BMP
antifungals per ID, re: cryptococcus
d/w ID
d/w pt and at bedside
-
-
Date of Service: February 03, 2024
CC / HPI / ROS
-
Chief Complaint:
hyponatremia
History of Present Illness:
Na up to 134 stable
on lipid amphoB for fungal meningitis
Hemodynamically more
Creatinine better at 1.8
Review of Systems:
no CP/SOB
Nonoliguric
No fevers
Labs
-
Labs:
WBC 8.3 10^3/uL (4.8-10.8) 02/03/24 08:57
RBC 4.24 10^6/uL (4.70-6.10) L 02/03/24 08:57
Hgb 14.5 g/dL (13.0-18.0) 02/03/24 08:57
Hct 38.6 % (39.0-52.0) L 02/03/24 08:57
Plt Count 150 10^3/uL (130-400) D 02/03/24 08:57
Sodium 134 mmol/L (135-145) L 02/03/24 08:57
Potassium 4.5 mmol/L (3.5-5.1) 02/03/24 08:57
Chloride 98 mmol/L (98-107) 02/03/24 08:57
Carbon Dioxide 25 mmol/L (22-30) 02/03/24 08:57
BUN 40 mg/dl (9-20) H 02/03/24 08:57
Creatinine 1.8 mg/dL (0.7-1.3) H 02/03/24 08:57
eGFR 37.58 02/03/24 08:57
Glucose 105 mg/dl (70-99) H 02/03/24 08:57
Calcium 10.0 mg/dl (8.4-10.2) 02/03/24 08:57
Albumin 3.3 g/dl (3.5-5.0) L 02/02/24 06:34
Physical Exam
-
Vital Signs:
Vital Signs
Temp Pulse Resp BP Pulse Ox
98.9 F 63 16 154/70 96
02/03/24 07:20 02/03/24 07:20 02/03/24 07:20 02/03/24 07:20 02/03/24 08:00
Cardiovascular:: Regular rate and rhythm
Respiratory:: Bilateral: CTA
Lung Excursion:: Normal
Abdomen:: Nontender and Soft
Extremity Edema:: None: Bilateral:
Coughlin Catheter: No
[2024-02-03 15:45] LABS: Glucose - Point of Care 98 mg/dl (70-99)
--- NOTE | 2024-02-03 16:02 | CON.INTV ---
Consultation
Consultation Request
Date/Time Consultation Requested: 02/03/2024
Date/Time Consultation Performed: 02/03/2024 - 1545
Requesting Provider: Dr. Patrick
Performing Provider: Dr. Murdock
Reason for Consultation: Worsening AMS
Medical History
-
Chief Complaint: Weakness/imbalance
History of Present Illness:
78-year-old male non-smoker with a past medical history of diverticulosis, hiatal hernia, hypothyroidism, history of retinal vein occlusion, hypertension, cervical radiculopathy and chronic pain syndrome who presents with generalized weakness and
feeling off balance. Symptoms have been going on and worsening over the last week. He also endorsed blurry vision with headache. For the last 2 weeks he has been having poor appetite with weakness. Denies history of stroke. An outpatient MRI
C-spine showed foraminal narrowing with moderate canal stenosis without cord compression. In the ER he was afebrile to 97.7 �F, pulse rate 63, breathing at 20 breaths/min, BP 138/74 and saturating 98% on room air. Initial labs showed mild
leukocytosis to 11, Hb 16.8, sodium 132, chloride 90, calcium 10.3, urinalysis negative for UTI and COVID antigen negative. Initial CXR showed no acute cardiopulmonary disease. He was given IVF with NS 0.1% x1 L, and Tylenol, and admitted to the
hospitalist service with neurology consulted. MRI brain on 01/26/2024 showed no evidence of any acute CVA or ICH. IR performed LP on 01/27, with opening pressure 25 cmH2O, and cryptococcus neoformans + yeast seen on CSF fluid culture. ID consulted
and he was initially on Diflucan which was then changed to amphotericin B + flucytosine. Patient developed WAI and nephrology was consulted. Today, patient became more lethargic, with plans for repeat LP and patient transferred to the ICU for
closer monitoring. 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
When I saw the patient, he was in bed, , Maylin, at bedside. All questions were answered. Patient awakens to verbal/tactile stimuli but not answering questions. Patient on room air, saturating 96%, heart rate 58 and BP 141/70. CT head was done
prior to come to the ICU and there was no acute intracranial O'Tomasz's. Patient then went to IR for LP which results are pending.
PMHx: Diverticulosis, gastric polyps, thyroid nodule, colonic polyp (tubular adenoma), hiatal hernia, gastritis, hypothyroidism, retinal vein occlusion, hypertension, cervical radiculopathy, chronic pain syndrome
PSHx: Appendectomy, right hemithyroidectomy, left thumb sutures
Past Medical History
Past Medical History: Other (Above as per HPI)
Past Surgical History: Other (Above as per HPI)
Social History
Tobacco: Former Smoker
Alcohol: None
Drug: None
Personal:
Living: With Family
Family History
Family History: Cancer (Father: Lung cancer) and Other (Mother: PUD)
Allergies / Home Medications
Allergies
Allergy/AdvReac Type Severity Reaction Status Date / Time
No Known Allergies Allergy Verified 01/25/24 14:02
Home Medications
�Medication �Instructions �Recorded �Confirmed �Last Taken �Type
atorvastatin 20 mg tablet 20 mg PO DAILY High Cholesterol 01/01/23 01/25/24 01/01/23 History
acetaminophen 500 mg tablet 1,000 mg PO Q6HPRN PRN mild pain 01/25/24 01/25/24 Unknown History
(Tylenol Extra Strength)
oxycodone 5 mg tablet 5 mg PO Q6HPRN PRN Pain 01/25/24 01/25/24 01/24/24 History
Review of Systems
-
Unable to Obtain full review of systems at this time due to: Acuity
Vitals / Labs / Diagnostic Testing
Vital Signs
Temp Pulse Resp BP Pulse Ox
99.3 F 63 14 147/81 96
02/03/24 16:00 02/03/24 16:00 02/03/24 16:00 02/03/24 16:00 02/03/24 08:00
Lab Data
02/03/24 08:57
02/03/24 08:57
Microbiology
01/29/24 11:11 Blood/Venous Blood Culture - Preliminary
Yeast
Additional testing on request
01/29/24 11:11 Blood/Venous Gram Stain - Preliminary
01/29/24 04:53 Blood/Venous Blood Culture - Final
No Growth - Final Report
01/28/24 15:35 Csf Fungus Mold Identification - Final
Cryptococcus neoformans
01/28/24 13:45 Csf CSF Culture - Final
Yeast
01/28/24 13:45 Csf Gram Stain - Final
Diagnostic Testing:
Physical Exam
-
HEENT: Normocephalic and Anicteric
Cardiovascular: S1/S2 and Peripheral Edema (negative)
Respiratory: Wheeze (negative), Rales (negative), Rhonchi and Non-Labored Respirations
GI: Soft, Non Distended, Non Tender and Normal Bowel Sounds
Neurology: Tremors (negative) and Other (Lethargic but awakening to verbal/tactile stimuli, but not answering questions; following simple commands)
Skin: Warm and Dry
General: Respiratory Distress (negative), Comfortable, Chills (negative) and Sweats (negative)
Assessment
-
Assessment: 78-year-old male non-smoker with a past medical history of diverticulosis, hiatal hernia, hypothyroidism, history of retinal vein occlusion, hypertension, cervical radiculopathy and chronic pain syndrome who presents with generalized
weakness and feeling off balance. Symptoms have been going on and worsening over the last week. He also endorsed blurry vision with headache. For the last 2 weeks he has been having poor appetite with weakness. Denies history of stroke. An
outpatient MRI C-spine showed foraminal narrowing with moderate canal stenosis without cord compression. In the ER he was afebrile to 97.7 �F, pulse rate 63, breathing at 20 breaths/min, BP 138/74 and saturating 98% on room air. Initial labs
showed mild leukocytosis to 11, Hb 16.8, sodium 132, chloride 90, calcium 10.3, urinalysis negative for UTI and COVID antigen negative. Initial CXR showed no acute cardiopulmonary disease. He was given IVF with NS 0.1% x1 L, and Tylenol, and
admitted to the hospitalist service with neurology consulted. MRI brain on 01/26/2024 showed no evidence of any acute CVA or ICH. IR performed LP on 01/27, with opening pressure 25 cmH2O, and cryptococcus neoformans + yeast seen on CSF fluid culture.
ID consulted and he was initially on Diflucan which was then changed to amphotericin B + flucytosine. Patient developed WIA and nephrology was consulted. Today, patient became more lethargic, with plans for repeat LP and patient transferred to the
ICU for closer monitoring. 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
Chronic conditions [employer]: Diverticulosis, gastric polyps, thyroid nodule, colonic polyp (tubular adenoma), hiatal hernia, gastritis, hypothyroidism, retinal vein occlusion, hypertension, cervical radiculopathy, chronic pain syndrome
Impression:
#AMS with concern for CVA versus worsening encephalo�meningitis
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
#Positive blood culture with yeast, suspicious for candidemia vs cryptococcaemia
#Hyponatremia (mild)
#Acute kidney injury (baseline Cr 0.8)
#History of chronic pain syndrome
#History of diverticulosis
Plan:
- Continue with antifungals as per ID
- Currently on amphotericin B + flucytosine
- Aspiration precautions
- Keep NPO
- Patient going for repeat LP today � follow-up repeat CSF culture + cytology, in addition to CSF glucose + protein
- Renally dose all medication/antifungals
- Trend UOP, I/O and sCr
- Monitor K with goal 3.5-5
- Maintain SpO2 >90-94%
- Maintain MAP>65
- Replete electrolytes with K>4, Mg>2
- Maintain euglycemia with goal BG 140-180
- prn nebulized bronchodilators � patient currently not bronchospastic
- Incentive spirometer once he is more awake and able to perform ADLs
- DVT ppx: Start HSQ
Critical care statement: A total of 40 minutes of critical care time was provided for this patient today. This includes management of unstable vital signs, evaluation of the patient at bedside, reviewing the patient's pertinent medical records
including radiographs, microbiology, laboratory evaluations, and discussion with primary team, consultants, pharmacy, nutrition, physical therapy, case management, charge nurse, critical care nursing, and respiratory therapy.
Data:
CT Head 02/03/2024:
No acute intracranial abnormalities.
Findings compatible with diffuse cortical atrophy with nonspecific white matter changes
MRI brain 01/26/2024:
1. No MRI evidence for acute infarct or intracranial hemorrhage.
2. 4 mm chronic lacunar infarct in the inferior right basal ganglia.
3. Mild white matter leukoaraiosis in the frontal and parietal lobes.
4. Mild to moderate diffuse cerebral and cerebellar volume loss.
5. Mild paranasal sinus mucosal disease.
--- NOTE | 2024-02-03 16:20 | W.PN.NEURO.1 ---
Today's Communication / Plan
-
Repeat LP due to waxing/waning symptoms
Continue Amphotericin.
Continue Flucytosine 25mg/kg.
May discontinue aspirin 81mg daily.
Neuro Assessment/Plan
Assessment
78 yr. old male with h/o lightheadedness confusion and ataxia since November 2023. Worse over the last week, exacerbated after starting new prescriptions including oxycodone and gabapentin.
CSF reveals Glucose 20 protein 145
-MRI brain 01/26/24: No MRI evidence for acute infarct or intracranial hemorrhage. 4 mm chronic lacunar infarct in the inferior right basal ganglia. Mild white matter leukoaraiosis in the frontal and parietal lobes. Mild to moderate diffuse cerebral
and cerebellar volume loss. Mild paranasal sinus mucosal disease.
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 3.1 mm anterolisthesis of C4 on C5 secondary to severe left-sided facet joint arthrosis. Moderate-sized central disc herniation at C4/C5 causing mild
spinal cord compression and central canal stenosis. Mild spinal cord compression and central canal stenosis at C3/C4 and C6/C7 secondary to disc-osteophyte complexes. Severe bilateral neural foraminal narrowing at C6/C7. Severe left neural foraminal
narrowing at C4/C5. 3.3 mm anterolisthesis of C7 on T1. Severe calcific atherosclerotic plaque in the proximal left internal carotid artery. Multiple left-sided thyroid nodules.
-MRI Lumbar Spine 01/28/24: There is multilevel degenerative disc disease and facet arthropathy with superimposed endplate degenerative edema at L3-L4. There is resultant multilevel spinal canal or neuroforaminal narrowing most pronounced at L3-L4
L4-L5 where there is mild canal stenosis and mild/moderate neuroforaminal narrowing.
-EEG 01/28/24: Moderately abnormal study for age based on bursts of frontally predominant rhythmic lateralized delta activity with single episode of generalization, not clearly epileptiform. No seizures were recorded.
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
III. Cervical/Lumbar DJD.
IV. Hyponatremia
02/03/2024 patient had a new sudden change in mental status.
Plan
Repeat LP due to waxing/waning symptoms
Continue Amphotericin.
Continue Flucytosine 25mg/kg.
May discontinue aspirin 81mg daily.
-DVT prophylaxis.
Will follow pending results.
Subjective/Objective
Subjective Data
Date of Service: February 03, 2024
Called to see patient urgently as a stroke alert due to patient having waxing and waning mentation with aphasia. Patient was described as having a new change at 15:35.
Objective Data
Vital Signs
Temp Pulse Resp BP Pulse Ox
37.2 C 63 16 154/70 96
02/03/24 07:20 02/03/24 07:20 02/03/24 07:20 02/03/24 07:20 02/03/24 08:00
Lab Results
02/03/24 08:57
02/03/24 08:57
PT 14.7 Sec (11.4-14.6) H 01/28/24 10:25
INR 1.14 01/28/24 10:25
Sodium 134 mmol/L (135-145) L 02/03/24 08:57
Potassium 4.5 mmol/L (3.5-5.1) 02/03/24 08:57
BUN 40 mg/dl (9-20) H 02/03/24 08:57
Glucose 105 mg/dl (70-99) H 02/03/24 08:57
Calcium 10.0 mg/dl (8.4-10.2) 02/03/24 08:57
LDL Cholesterol, Calc 56 mg/dl 01/26/24 08:00
Whole Bld Vitamin B1 212 nmol/L (70-180) H 01/26/24 10:04
Vitamin B12 439 pg/ml (239-931) 01/26/24 08:00
Patient Allergies
No Known Allergies Allergy (Verified 01/25/24 14:02)
Review of Systems
-
History Source: Patient
All other systems: Reviewed and negative
Neuro: Negative Dizzy or Headache
Physical Exam
-
General: No Apparent Distress and Appears Stated Age
Eyes: Round OU
HEENT: Anicteric and Moist Mucous Membranes
Neck: Full Range of Motion
Respiratory: No Dyspnea
Cardiac: No JVD
GI: Non-distended
Skin: Unremarkable
Extremities: No Clubbing, No Cyanosis and No Edema
Psych: Negative Intact Judgement/Insight
Extended Neurological Exam
Mood & Affect: Mood Unremarkable and Affect Unremarkable
Attention Span & Concentration: Awake, Interactive, Closes Eyes after Stimulation (Immediately) and Moderate Difficulty with 2 Step Request (At times unable to perform single step requests); Negative Alert
Memory: Able to Recall (Location, month, and year, although at times unable to recall)
Tremor: Hand Tremor Absent and Head Tremor Absent
Involuntary Movement: None
Speech: Moderately Reduced Output
Cranial Nerve II: Left Eye: Pupillary Reactivity Unremarkable and Pupillary Size Unremarkable
Cranial Nerve II: Right Eye: Pupillary Reactivity Unremarkable, Pupillary Size Unremarkable and Visual [place] Intact
Cranial Nerves III, IV, : Extraocular Movement: Grossly Intact
Cranial Nerve VII: Facial Symmetry: Normal Facial Symmetry
Cranial Nerve VIII: Hearing: Unremarkable Hearing to Normal Conversational Volume
Cranial Nerve XI: Shoulder Shrug: Unremarkable
Muscle Strength, Overall: Full Throughout
Muscle Bulk & Tone: Bulk Unremarkable and Tone Unremarkable
Pronator Drift: No Drift in Upper Extremities and No Drift in Lower Extremities
Deep Tendon Reflexes: Unremarkable Throughout
Touch Sensation: Unremarkable
Coordination: Reaches for Objects without Difficulty
Gait & Station: Unable to Assess
Data Reviewed
-
CT Head: Report Reviewed and Image Reviewed
Labs: Report Reviewed
Reviewed with: Physician, Patient and Family
Old Records: Summarized
Past History
Past History
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
BPH)
ED Past Surgical History: Appendectomy and Other (Right lobe thyroid resection)
Social History
Tobacco: Other
Alcohol: Other
Drug: None
Personal:
Living: with family
Employment: Other
Family History
Family History: Other (Reviewed and noncontributory)
Medications
-
Medications:
Generic Name Dose Route Start Last Admin
Trade Name Freq PRN Reason Stop Dose Admin
Acetaminophen 1,000 mg 01/29/24 19:00 02/02/24 15:43
Acetaminophen 500 Mg Tablet PO 02/26/24 18:59 1,000 mg
DAILY@1500 UMAIR Administration
Acetaminophen 1,000 mg 01/29/24 14:56
Acetaminophen 500 Mg Tablet PO 02/26/24 14:55
Q8HPRN PRN
TRENT, mild pain, T >100.4F
Aspirin 81 mg 01/26/24 08:00 02/03/24 08:09
Aspirin 81 Mg Chewable Tablet PO 02/23/24 07:59 81 mg
DAILY UMAIR Administration
Atorvastatin Calcium 20 mg 01/26/24 08:00 02/03/24 08:09
Atorvastatin (Lipitor) 20 Mg Tablet PO 02/23/24 07:59 20 mg
DAILY UMAIR Administration
Diphenhydramine HCl 25 mg 01/29/24 19:00 02/02/24 15:45
Diphenhydramine 25 Mg Capsule PO 02/26/24 18:59 25 mg
DAILY@1500 UMAIR Administration
Diphenhydramine HCl 25 mg 01/29/24 14:56
Diphenhydramine Elixir (25 Mg/10 Ml) Cup TUBE 02/26/24 14:55
Q4HPRN PRN
AMPHOTERICIN INFUSION REACTION
Amphotericin B 200 mg/ 150 mls @ 75 mls/hr 01/30/24 17:00 02/02/24 17:00
Dextrose IV 02/09/24 16:59 150 mls
DAILY@1600 UMAIR Administration
Dextrose 10 ml/ Device 10 mls @ 0 mls/hr 01/31/24 16:00 02/02/24 19:05
IV 02/26/24 15:59 10 mls
BID@1600,1805 UMAIR Administration
UD
Sodium Chloride 1,000 mls @ 100 mls/hr 02/02/24 09:45 02/03/24 08:08
Nss IV 1,000 mls
.Q10H UMAIR Administration
Magnesium Oxide 500 mg 01/29/24 08:00 02/03/24 08:09
Magnesium Oxide 500 Mg Tablet PO 02/26/24 07:59 500 mg
DAILY UMAIR Administration
Prochlorperazine Edisylate 5 mg 01/29/24 23:06 01/29/24 23:36
Prochlorperazine 10 Mg/2 Ml Vial IV 02/26/24 23:05 5 mg
Q6HPRN PRN Administration
n/v
Sodium Chloride 0 flush 01/28/24 18:00
Sodium Chloride 0.9% (Flush) Syringe IV 02/25/24 17:59
PER PROTOCOL UMAIR
--- NOTE | 2024-02-03 16:30 | RR ---
This RN was alerted by that pt 'did not seem right'. This RN notified MD and assessed pt. Pt appeared to have new R sided facial droop, unable to follow commands, and speech was now garbled. This RN called RR & Stroke Alert and alerted MD
Niurka & Residents on the way to bedside. VSS, Accucheck WNL, and EKG completed. Pt sent down for STAT head CT with SHOES HAND SEWER & Neuro Dr. Haque at bedside. Pt upon return with N/V, VSS, and transferred to ICU as ordered by MD Bah. This RN
accompanied by SHOES HAND SEWER transferred pt. Report given to JU Lima at bedside.
A Rapid Response was called on this patient, please see Rapid Response form.
--- NOTE | 2024-02-03 16:30 | CM ---
Reviewed the chart notes. Patient with rapid response and transferred to ICU. CM continues to be available to patient/family and is monitoring medical plan for needs at discharge.
Plan: Discharge plans will depend on the patient's progress.
--- NOTE | 2024-02-03 16:37 | W.PN.UPDATE ---
Addendum entered and electronically signed by Brooklynn Bah MD 02/03/24 17:19:
Called to bedside to evaluate patient and change in neurologic status--was at the bedside when Dr. Sherwood evaluated the patient. Neurology also at bedside. Patient not following commands. Sent for stat head CT--negative for bleed. Transferred to
intensive care unit. Notified infectious disease. Consulted cloud solutions architect.
HEENT: facial droop
HEART: regular rate and rhythm, +S1, +S2, JACK
LUNGS : clear to auscultation bilaterally
NEUROLOGIC: not following commands
No changes to the rest of note is documented below
Time to evaluate and transfer patient 40 to 50 minutes.
Original Note:
Update Note
Progress Note Update
at around 3:38 pm recieved a notification from nurses that patient maybe having stroke like symptoms. They described he was having garbled speech, could not follow commands, and had a slight facial droop. A stroke alert was called in.
-Vitals:
Temp: 99.3
Bp: 141/87
Pulse: 68
Respiratory rate: 14
Oxygen saturation: 97
-EKG: patient in sinus rhythm
-Neuro exam: Patient is minimally responding to verbal commands, Left sided facial droop, dysarthria waxing and waning TARIQ, DTR's were normal in both the upper and lower extremities, no pronator drift
- Likely might be from progression of meningitis vs stroke vs inflammatory reaction from ongoing treatment with amphotericin B causing increased intracranial pressure.
-Consulted Neuro, CT scan was negative for stroke
- Consulted ID- recommended that pt needs LP stat with opening pressure.
Also ordered CSF cryptococcal antigen titre
- Consulted interventional radiology- Plan on doing LP with opening pressure
- Pt is transferred to ICU , consulted the cloud solutions architect
[2024-02-03] MEDS: TYLENOL PO (16:58)
[2024-02-03] MEDS: BENADRYL PO (16:58)
--- NOTE | 2024-02-03 17:11 | PTCARENOTE ---
Received pt s/p RR for mental status change into rm [id number] @ 1640. Orders for STAT LP in IR per Neuro, Dr. Haque, and pt. lindanported via bed on monitor to IR @ 1645. Awaiting completion of LP to peanut picker patient.
[2024-02-03 18:01] LABS: B.E. 0.8 mmol/L; HCO3 25.3 mmol/L (21-28); PCO2 39 mmHg (35-48); PO2 83 mmHg (83-108); Potassium 3.7 mMOL/L (3.5-5.1); Sodium 132 mMOL/L (136-145); pH 7.42 (7.35-7.45)
[2024-02-03 18:12] LABS: O2 Saturation % 96.4 % (94-98)
[2024-02-03 18:24] LABS: Spinal Fluid Glucose < 20 mg/dl (40-70); Spinal Fluid Protein 189 mg/dl (12-60)
--- NOTE | 2024-02-03 18:26 | PTCARENOTE ---
Pt transported via bed from IR back to ICU rm [id number] s/p LP. Bandaid c/d/i. Pt. flat x2H. Neuro status noted to be waxing and wanning. Upon picking pt up from IR, mentation oriented x3; then back up at room pt. inconsistently not answering
questions or following commands. RUE flaccid @ x's, other x's weak hand grasp; B/L LE weakness R>L. R facial droop noted. Neuro, Dr. Haque, notified of inconsistent neuro exam; further orders received. Neuro checks initiated Q1H- see flow sheet;
NIH not to be completed d/t mental status change r/t meningitis and not acute stroke per neuro. @ bedside updated on plan of care.
[2024-02-03] MEDS: AMBISOME 150 MG IV (18:36)
[2024-02-03] MEDS: KEPPRA 3000 MG IV (18:36)
[2024-02-03] MEDS: D5W 10 ML IV ×2 (18:37→20:36)
[2024-02-03 18:55] LABS: CSF Color Colorless; CSF Tube # 1
[2024-02-03 18:56] LABS: CSF Clarity Clear
[2024-02-03 18:58] LABS: Red Cell Count/CSF 400 mm^3; Spinal Fluid Lymphocytes 65 %
[2024-02-03 19:00] LABS: Spinal Fluid Granulocytes 3 %; White Cell Count/CSF 14 mm^3 (0-5)
[2024-02-03 19:01] LABS: Spinal Fluid Macrophages 32 %
[2024-02-03 19:02] LABS: CSF Color Colorless; CSF Tube # 4; CSF Tube # Clarity Clear
[2024-02-03 19:03] LABS: CSF Granulocytes 5 %; CSF Lymphocytes 70 %; Red Cell Count/CSF 3 mm^3; Spinal Fluid Macrophages 25 %; White Blood Cell Count/CSF 43 mm^3 (0-5)
--- NOTE | 2024-02-03 23:35 | PTCARENOTE ---
Patient reassessed, asleep, will not open eyes to command. Will resist in upper extremities, lowers remain with poor movement. Turned and repositioned
[2024-02-04] VITALS (30 sets, daily range): BP systolic 77–157; BP diastolic 38–105
--- NOTE | 2024-02-04 00:25 | PTCARENOTE ---
Patient remains drowsy, eyes open, able to follow some simple commands.
[2024-02-04] MEDS: HEPARIN 5000 UNITS SC ×3 (00:34→15:08)
[2024-02-04] MEDS: NSS 1000 IV ×3 (02:55→22:03)
--- NOTE | 2024-02-04 03:05 | PTCARENOTE ---
Patient minimally conversant, able to state where he is.simple commands followed. no change in strength in extremities
--- NOTE | 2024-02-04 04:48 | PTCARENOTE ---
Patient reassessed, arousable, confused conversation, does not follow commands consistently. Delia care given. Turned and repositioned, labs drawn
[2024-02-04 05:01] LABS: ALT (SGPT) 15 U/L (0-50); AST (SGOT) 20 U/L (17-59); Albumin 3.4 g/dl (3.5-5.0); Alkaline Phosphatase 66 U/L (38-126); Blood Urea Nitrogen 31 mg/dl (9-20); Calcium 9.9 mg/dl (8.4-10.2); Carbon Dioxide 26 mmol/L (22-30); Chloride 99 mmol/L (98-107); Estimated Creatinine Clearance 35 ml/min; Glucose 103 mg/dl (70-99); Magnesium 1.9 mg/dl (1.6-2.3); Sodium 138 mmol/L (135-145); Total Protein 5.8 g/dl (6.3-8.2); eGFR 43.29
[2024-02-04 05:09] LABS: Hematocrit 39.2 % (39.0-52.0); Hemoglobin 14.1 g/dL (13.0-18.0); Mean Corpuscular Hgb 32.7 pg (27.0-31.0); Mean Platelet Volume 8.8 fL (7.4-10.4); Platelet Count 202 10^3/uL (130-400); Red Blood Cell Count 4.31 10^6/uL (4.70-6.10); Red Cell Dist. Width 11.9 % (11.5-14.5); White Blood Cell Count 8.9 10^3/uL (4.8-10.8)
[2024-02-04] MEDS: LOW STRENGTH ASPIRIN PO (07:17)
[2024-02-04] MEDS: MAGNESIUM OXIDE PO (07:17)
[2024-02-04] MEDS: LIPITOR PO (07:17)
--- NOTE | 2024-02-04 08:00 | PTCARENOTE ---
Received pt @ change of shift. Neuro status waxing/waning- see neuro flow sheet. Drowsy, opens eyes spont; confused conversation this AM; inconsistently following commands. PERRLA; 3mm/brisk. Able to move all extremities; not to command; gen
weakness R>L. SB-SR on monitor. SpO2 97% on 2LNC. Strict NPO status maintained. Assisted w complete oral hygiene. Inc b/b. CC in place draining clear, yellow urine. #22 L wrist w NSS@ 100mL/hr. Repositioned; bed alarm active. Safe environment
maintained.
[2024-02-04] MEDS: KEPPRA 1000 MG IV ×2 (08:04→22:01)
--- NOTE | 2024-02-04 09:12 | W.PN.INTV ---
Today's Communication / Plan
Recommendations
ABx per ID
q1hr neurochecks
EEG
MRA head/neck
Aspiration precautions
NPO with TANK FARM ATTENDANT evaluation
If fails TANK FARM ATTENDANT, start tube feeds
MAP>65
ASA + statin
Neuro recs appreciated
Assessment
-
Assessment: 78-year-old male non-smoker with a past medical history of diverticulosis, hiatal hernia, hypothyroidism, history of retinal vein occlusion, hypertension, cervical radiculopathy and chronic pain syndrome who presents with generalized
weakness and feeling off balance. Symptoms have been going on and worsening over the last week. He also endorsed blurry vision with headache. For the last 2 weeks he has been having poor appetite with weakness. Denies history of stroke. An
outpatient MRI C-spine showed foraminal narrowing with moderate canal stenosis without cord compression. In the ER he was afebrile to 97.7 �F, pulse rate 63, breathing at 20 breaths/min, BP 138/74 and saturating 98% on room air. Initial labs
showed mild leukocytosis to 11, Hb 16.8, sodium 132, chloride 90, calcium 10.3, urinalysis negative for UTI and COVID antigen negative. Initial CXR showed no acute cardiopulmonary disease. He was given IVF with NS 0.1% x1 L, and Tylenol, and
admitted to the hospitalist service with neurology consulted. MRI brain on 01/26/2024 showed no evidence of any acute CVA or ICH. IR performed LP on 01/27, with opening pressure 25 cmH2O, and cryptococcus neoformans + yeast seen on CSF fluid culture.
ID consulted and he was initially on Diflucan which was then changed to amphotericin B + flucytosine. Patient developed WAI and nephrology was consulted. Today, patient became more lethargic, with plans for repeat LP and patient transferred to the
ICU for closer monitoring. Administrative Support Specialist services consulted for additional management/recommendations.
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
Impression:
#AMS with concern for CVA versus worsening encephalo�meningitis --> MRI brain done this AM confirmed left acute CVA involving the cerebral peduncle (likely related to known cryptococcal meningitis)
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
#Positive blood culture with yeast due to cryptococcaemia
#Hyponatremia (mild) - resolved
#Acute kidney injury (baseline Cr 0.8)
#History of chronic pain syndrome
#History of diverticulosis
Plan:
- q1hr neurochecks with NIHSS q shift
- Not a TNK candidate given unclear time of onset/LKN
- Stat CT head for any change in neurochecks with notification to neurology + duty officer/hospitalist
- EEG pending
- Check MRA head/neck
- Keep NPO given waxing/waning mental status and check TANK FARM ATTENDANT eval
- Dobhoff tube placed for PO access; if fails TANK FARM ATTENDANT then start tube feeds
- ASA + high-intensity statin; goal LDL<70 (56 on 01/26/2024; of note, A1C: 5.4 on 01/26/2024)
- Continue with antifungals as per ID
- Currently on amphotericin B + flucytosine
- Aspiration precautions
- Follow-up CSF culture + cytopathology from repeat LP on 02/03/2024
- Renally dose all medication/antifungals
- Trend UOP, I/O and sCr
- Monitor K with goal 3.5-5
- Maintain SpO2 >90-94%
- Maintain MAP>65
- Replete electrolytes with K>4, Mg>2
- Maintain euglycemia with goal BG 140-180
- prn nebulized bronchodilators � patient currently not bronchospastic
- Incentive spirometer once he is more awake and able to perform ADLs
- DVT ppx: HSQ
Critical care statement: A total of 38 minutes of critical care time was provided for this patient today. This includes management of unstable vital signs, evaluation of the patient at bedside, reviewing the patient's pertinent medical records
including radiographs, microbiology, laboratory evaluations, and discussion with primary team, consultants, pharmacy, nutrition, physical therapy, case management, charge nurse, critical care nursing, and respiratory therapy.
Data:
CT Head 02/03/2024:
No acute intracranial abnormalities.
Findings compatible with diffuse cortical atrophy with nonspecific white matter changes
MRI brain 01/26/2024:
1. No MRI evidence for acute infarct or intracranial hemorrhage.
2. 4 mm chronic lacunar infarct in the inferior right basal ganglia.
3. Mild white matter leukoaraiosis in the frontal and parietal lobes.
4. Mild to moderate diffuse cerebral and cerebellar volume loss.
5. Mild paranasal sinus mucosal disease.
MRI Brain 02/04/2024:
There is a 6 mm focus of restricted diffusion within the left cerebral peduncle consistent with acute infarction.
There is mild atrophy with sequelae of mild small vessel ischemic disease, unchanged from prior.
FLAIR nonsuppression within the fourth ventricle and to a lesser extent the prepontine cistern which is likely artifactual in nature.
Subjective Dataa
Subjective Data
Date of Service:
Date of Service: February 04, 2024
Chief Complaint: Administrative Support Specialist Follow Up
Subjective:
Patient seen and evaluate this morning. Labile mental status, occasionally AAO x 3 and other times uncooperative. On 2 L/min saturating 99%, heart rate 77 and BP 133/84. Patient's , Maylin, at bedside. All questions were answered. GCS score
this morning is 11. He is in no acute distress. He does answer me when I say his name but he is not following commands. He underwent LP yesterday showing continued infection with low glucose and elevated WBC albeit normal opening pressure of
[id number].
Review of Systems
General: Other (Unable to obtain given patient's acute clinical status)
Objective Data
Data Reviewed
Vital Signs / I&O / Oxygen:
Vital Signs
Temp Pulse Resp BP Pulse Ox
98.9 F 55 15 149/71 99
02/04/24 08:10 02/04/24 08:15 02/04/24 08:15 02/04/24 08:00 02/04/24 08:15
Intake and Output
02/03/24 02/04/24 02/05/24
06:59 06:59 06:59
Intake Total 1920 / 1920 1200 / 1300 200 / 200
Output Total 1550 / 1550 300 / 300
Balance 370 / 370 900 / 1000 200 / 200
SaO2 99
Nasal Cannula flow liters per 2
minute
Physical Exam
General: Respiratory Distress (negative), Chills (negative) and Sweats (negative)
HEENT: Normocephalic and Anicteric
Cardiovascular: S1-S2 and Peripheral Edema (negative)
Respiratory: Clear, Wheeze (negative), Crackles (negative), Rhonchi (negative) and Non-Labored Respirations
GI: Soft, Non Distended, Non Tender and Normal Bowel Sounds
Neurology: Tremors (negative), Lethargic and Other (+2 bilaterally and sluggish)
Skin: Warm and Dry
Labs/Micro/Reports
Lab Data
02/04/24 04:26
02/04/24 04:26
Laboratory Results
02/03/24
17:48
pH 7.42
pCO2 39
pO2 83
HCO3 25.3
O2 Delivery Level
Microbiology
02/03/24 17:15 Csf Gram Stain - Preliminary
01/29/24 11:11 Blood/Venous Blood Culture - Preliminary
Yeast
Additional testing on request
01/29/24 11:11 Blood/Venous Gram Stain - Preliminary
01/29/24 04:53 Blood/Venous Blood Culture - Final
No Growth - Final Report
01/28/24 15:35 Csf Fungus Mold Identification - Final
Cryptococcus neoformans
01/28/24 13:45 Csf CSF Culture - Final
Yeast
01/28/24 13:45 Csf Gram Stain - Final
--- NOTE | 2024-02-04 10:24 | W.PN.ID1 ---
Addendum entered and electronically signed by Naa John MD 02/04/24 12:19:
discussed with nephro
ordered the 500 cc NS bolus pretreatment for lipo ampho
Original Note:
Date of Service
Date of Service: February 04, 2024
Today's Communication
trend CSF titer of crypto ag
restarted flucytosine via NGT for present
daily cr and electrolytes
Assessment / Plan
Cryptococcal meningitis (immunocompetent patient)
- Confirmed on antigen testing of CSF 1:15,334; crypto ag of serum 1:3518
- blood cultures from 01/28 now positive for budding yeast; 02/02 blood cultures x2 in progress no growth to date
- CSF 02/02 gram stain no organisms and no growth to date; however CSF glucose remains quite low: persistent infection vs PIIRS (post infectious inflammatory response syndrome); overall favor persistent infection, follow clinically
- repeat CSF cryto ag was not sent yesterday, I have spoken with lab and ordered stat, will trend the titer when available
- restart flucytosine 1500 mg po BID, will move to 1750 when that formulation is available (ordered)
- continue lipo ampho B 3 mg/kg daily (no need to adjust dose for renal impairment).
- daily mag levels, K, Ca, Na
- aggressive K repletion to 4.0+ PRN
- preemptively started mag replacement - continue
- avoid nephrotoxic agents as feasible
- pretreatment benadryl, tylenol
- would consider pretreatment with 500 ccs NS bolus in addition to maintenance fluids - message left for nephrology via tiger text
- daily assessment for signs and sxs of elevated intracranial pressure.
- follow clinically
����������������������������������������������������������
Chief Complaint
-: Other (cryptococcal meningitis)
Subjective / Review of Systems
remains afebrile
neuro status noted to wax and wane - new facial droop, garbled speech, not following commands
stat LP had OP at 13 cm H2O
CSF results reviewed
Vital Signs / Physical Exam
Vital Signs
Vital Signs
Temp Pulse Resp BP Pulse Ox
98.9 F 57 9 141/73 100
02/04/24 08:10 02/04/24 09:30 02/04/24 09:30 02/04/24 09:00 02/04/24 09:30
Physical Exam
Constitutional: No Acute Distress and Chronically Ill
Cardiovascular: Regular Rate and S1/S2; Negative Murmur or Rub
Pulmonary: Clear and Symmetric; Negative Wheezes or Rales
Gastrointestinal: Soft, Non Tender, Non Distended and Normal Bowel Sounds
Skin: Warm and Dry; Negative Rash or Jaundice
Neurological: Awake and Other (opens left eye to command, could not move extremities to command)
Objective Data
Lab Data
Lab Results
02/04/24 04:26
02/04/24 04:26
ESR 6 mm/hour (0-20) 01/26/24 13:48
PT 14.7 Sec (11.4-14.6) H 01/28/24 10:25
INR 1.14 01/28/24 10:25
Estimated Creat Clear 35 ml/min 02/04/24 04:26
Total Bilirubin 1.0 mg/dl (0.2-1.3) 02/04/24 04:26
AST 20 U/L (17-59) 02/04/24 04:26
ALT 15 U/L (0-50) 02/04/24 04:26
Alkaline Phosphatase 66 U/L (38-126) 02/04/24 04:26
Most recent labs reviewed.
CSF 02/02 WBC 43 from 45
lympho 70% from 55%
glucose <20
protein [address] Scan: Image Reviewed and Report Reviewed
Micro Results:
02/03/24 17:15 CSF Culture - Preliminary
Csf No Growth After 18-24 Hours
Gram Stain - Preliminary
02/04/24 04:26 Blood Culture - Pending
Blood/Venous
02/03/24 14:04 Blood Culture - Pending
Blood/Venous
01/29/24 11:11 Blood Culture - Preliminary
Blood/Venous Yeast
Additional testing on request
Gram Stain - Preliminary
01/29/24 04:53 Blood Culture - Final
Blood/Venous No Growth - Final Report
01/28/24 15:35 Fungus Mold Identification - Final
Csf Cryptococcus neoformans
01/28/24 13:45 CSF Culture - Final
Csf Yeast
Gram Stain - Final
01/26/24 13:45 Acid Fast Bacilli Smear - Preliminary
Csf Acid Fast Bacilli Culture - Preliminary
01/28/24 13:45 Fungal Culture - Preliminary
Csf Yeast
01/25/24 19:50 Salmonella/Shigella Culture - Final
Feces/Stool No Salmonella, Shigella, Aeromonas or Plesiomonas species
isolated.
Campylobacter Culture - Final
No Campylobacter species isolated.
Shiga Toxin Test - Final
No E. coli Shiga Toxin 1 or 2 detected.
Stool Leukocytes - Final
01/28/24 13:45 Meningitis/Encephalitis Panel (PCR) - Final
Csf
--- NOTE | 2024-02-04 11:34 | W.PN.NEPH.PH ---
Today's Communication / Plan
-
cotn IVF and follow labs
abx per ID
Assessment/Plan
-
Assessment
Hyponatremia
Fungal meningitis
Hyperlipidemia
WAI
Plan:
In ICU for AMS , s/p repeat LP, neuro follows
WAI-improving cr with IVF, baseline cr 0.9
No evidence of obstruction by multiple bladder scans
cont normal saline at 100 cc/h for now
suspected Amphotericin nephrotoxicity, however liposomal formulations seem to have less risk
off Flucytosine since 02/01, ok to resume and monitor cr closely
BP stable
hyponatremia better
follow BMP daily
antifungals per ID, re: cryptococcus
d/w nursing and at bedside
-
-
Date of Service: February 04, 2024
CC / HPI / ROS
-
Chief Complaint:
hyponatremia
History of Present Illness:
Na up to 138
on lipid amphoB for fungal meningitis
Hemodynamically stable
Creatinine better at 1.6
Altered since last evening and transferred to ICU , LP repeated
Review of Systems:
low grade temp 100.2
not responding or communicating
Labs
-
Labs:
WBC 8.9 10^3/uL (4.8-10.8) 02/04/24 04:26
RBC 4.31 10^6/uL (4.70-6.10) L 02/04/24 04:26
Hgb 14.1 g/dL (13.0-18.0) 02/04/24 04:26
Hct 39.2 % (39.0-52.0) 02/04/24 04:26
Plt Count 202 10^3/uL (130-400) D 02/04/24 04:26
Sodium 138 mmol/L (135-145) 02/04/24 04:26
Potassium 4.0 mmol/L (3.5-5.1) 02/04/24 04:26
Chloride 99 mmol/L (98-107) 02/04/24 04:26
Carbon Dioxide 26 mmol/L (22-30) 02/04/24 04:26
BUN 31 mg/dl (9-20) H 02/04/24 04:26
Creatinine 1.6 mg/dL (0.7-1.3) H 02/04/24 04:26
eGFR 43.29 02/04/24 04:26
Glucose 103 mg/dl (70-99) H 02/04/24 04:26
Calcium 9.9 mg/dl (8.4-10.2) 02/04/24 04:26
Albumin 3.4 g/dl (3.5-5.0) L 02/04/24 04:26
Physical Exam
-
Vital Signs:
Vital Signs
Temp Pulse Resp BP Pulse Ox
100.2 F 57 9 141/73 100
02/04/24 11:21 02/04/24 09:30 02/04/24 09:30 02/04/24 09:00 02/04/24 09:30
Cardiovascular:: Regular rate and rhythm
Respiratory:: Bilateral: CTA
Lung Excursion:: Normal
Abdomen:: Nontender and Soft
Extremity Edema:: None: Bilateral:
Coughlin Catheter: No
--- NOTE | 2024-02-04 12:12 | PTCARENOTE ---
Pt.'s neuro status remains waxing/waning; unable to follow commands consistently enough for swallow screen. Dr. Murdock made aware and further orders received- Reji cunningham placed @ 65cm, verified w x-ray by Dr. Murdock @ bedside. Dr. Box
also in contact w [facility], Dr. Mascorro, and plan for EEG/Brain MRI today. @ bedside updated. Safe environment maintained.
[2024-02-04] MEDS: [UNRECOGNIZED DRUG - OTHER] 1750 MG PO (13:27)
[2024-02-04] MEDS: TYLENOL 1000 MG PO (13:54)
--- NOTE | 2024-02-04 14:05 | W.PN.NEURO.1 ---
Today's Communication / Plan
-
continue ASA 81, antifungal treatment
EEG to be done now
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
Neuro Assessment/Plan
Assessment
78 yr. old male with h/o lightheadedness confusion and ataxia since November 2023. Worse over the last week, exacerbated after starting new prescriptions including oxycodone and gabapentin.
CSF reveals Glucose 20 protein 145
-MRI brain 01/26/24: No MRI evidence for acute infarct or intracranial hemorrhage. 4 mm chronic lacunar infarct in the inferior right basal ganglia. Mild white matter leukoaraiosis in the frontal and parietal lobes. Mild to moderate diffuse cerebral
and cerebellar volume loss. Mild paranasal sinus mucosal disease.
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 3.1 mm anterolisthesis of C4 on C5 secondary to severe left-sided facet joint arthrosis. Moderate-sized central disc herniation at C4/C5 causing mild
spinal cord compression and central canal stenosis. Mild spinal cord compression and central canal stenosis at C3/C4 and C6/C7 secondary to disc-osteophyte complexes. Severe bilateral neural foraminal narrowing at C6/C7. Severe left neural foraminal
narrowing at C4/C5. 3.3 mm anterolisthesis of C7 on T1. Severe calcific atherosclerotic plaque in the proximal left internal carotid artery. Multiple left-sided thyroid nodules.
-MRI Lumbar Spine 01/28/24: There is multilevel degenerative disc disease and facet arthropathy with superimposed endplate degenerative edema at L3-L4. There is resultant multilevel spinal canal or neuroforaminal narrowing most pronounced at L3-L4
L4-L5 where there is mild canal stenosis and mild/moderate neuroforaminal narrowing.
-EEG 01/28/24: Moderately abnormal study for age based on bursts of frontally predominant rhythmic lateralized delta activity with single episode of generalization, not clearly epileptiform. No seizures were recorded.
1. Fungal meningitis/encephalitis: Cryptococcal, with acute ischemic stroke; immunocompetent
2. Cervical/Lumbar DJD.
3. Hyponatremia
02/03/2024 patient had a new sudden change in mental status.
Had a repeat LP done overnight and a stat HCT. HCT showed no acute findings. LP showed opening pressures of 13 cm of water.
MRI brain done today does show interval development of:
There is a 6 mm focus of restricted diffusion within the left cerebral peduncle consistent with acute infarction.
There is mild atrophy with sequelae of mild small vessel ischemic disease, unchanged from prior.
Plan
Repeat LP completed yesterday
MRI brain showed interval development of ischemic stroke
stat EEG to be done this afternoon
started on Keppra 1g IV q12
Continue Amphotericin.
Continue Flucytosine 25mg/kg.
Continue ASA 81mg daily and atorvastatin.
DVT prophylaxis.
Continue neurochecks
Critical care time 35 mins
Subjective/Objective
Subjective Data
Date of Service: February 04, 2024
remains confused, intermittently following commands
Objective Data
Vital Signs
Temp Pulse Resp BP Pulse Ox
100.4 F H 57 9 141/73 100
02/04/24 13:34 02/04/24 09:30 02/04/24 09:30 02/04/24 09:00 02/04/24 09:30
Lab Results
02/04/24 04:26
02/04/24 04:26
PT 14.7 Sec (11.4-14.6) H 01/28/24 10:25
INR 1.14 01/28/24 10:25
Sodium 138 mmol/L (135-145) 02/04/24 04:26
Potassium 4.0 mmol/L (3.5-5.1) 02/04/24 04:26
BUN 31 mg/dl (9-20) H 02/04/24 04:26
Glucose 103 mg/dl (70-99) H 02/04/24 04:26
Calcium 9.9 mg/dl (8.4-10.2) 02/04/24 04:26
LDL Cholesterol, Calc 56 mg/dl 01/26/24 08:00
Whole Bld Vitamin B1 212 nmol/L (70-180) H 01/26/24 10:04
Vitamin B12 439 pg/ml (239-931) 01/26/24 08:00
Patient Allergies
No Known Allergies Allergy (Verified 01/25/24 14:02)
Physical Exam
-
General: Appears Stated Age
Extended Neurological Exam
Attention Span & Concentration: Other (lethargic, opens eyes to voice, follows most basic commands; had to be asked multiples time to name his , knew location; did not answer questions regarding where he lives)
Tremor: Hand Tremor Absent
Speech: Quality Unremarkable and Quantity Unremarkable
Cranial Nerve II: Left Eye: Pupillary Reactivity Unremarkable and Pupillary Size Unremarkable
Cranial Nerve II: Right Eye: Pupillary Reactivity Unremarkable and Pupillary Size Unremarkable
Cranial Nerves III, IV, : Extraocular Movement: Grossly Intact
Cranial Nerve V: Facial Sensation: Unable to Assess
Cranial Nerve VII: Facial Symmetry: Normal Facial Symmetry
Cranial Nerve VIII: Hearing: Other (hard of hearing)
Cranial Nerves IX, X: Palate Movement: Unable to Assess
Cranial Nerve XI: Shoulder Shrug: Unable to Assess
Cranial Nerve XII: Tongue Protusion: Unable to Assess
Muscle Strength, Overall: Other (moved BUE at least 3/5, no spontaneous movement in BLE; held legs antigravity for a few seconds when lifted for him)
Deep Tendon Reflexes: Unremarkable Throughout
Coordination: Unable to Assess
Babinski Sign: Absent Bilaterally
--- NOTE | 2024-02-04 14:40 | PTCARENOTE ---
Pt. transported via bed to MRI and back to rm [id number]. Brain MRI results reviewed by Dr. Mascorro, no interventions @ this time; updated @ bedside. EEG in progress @ this time. Neuro checks maintained- see flow sheet.
[2024-02-04] MEDS: NSS 500 IV (15:08)
[2024-02-04] MEDS: TYLENOL PO (15:08)
[2024-02-04] MEDS: BENADRYL PO ×2 (15:08→15:25)
--- NOTE | 2024-02-04 15:54 | W.PN.UPDATE ---
Update Note
Progress Note Update
Pt had MRI of brain:
Impression:
- There is a 6 mm focus of restricted diffusion within the left cerebral peduncle consistent with acute infarction.
- There is mild atrophy with sequelae of mild small vessel ischemic disease, unchanged from prior.
- FLAIR nonsuppression within the fourth ventricle and to a lesser extent the prepontine cistern which is likely artifactual in nature.
Neurology:
MRI brain showed interval development of ischemic stroke
stat EEG to be done this afternoon
started on Keppra 1g IV q12
[2024-02-04] MEDS: BENADRYL ELIXIR 25 MG TUBE (15:56)
[2024-02-04 16:33] LABS: COVID-19 Antigen Negative (Negative)
[2024-02-04] MEDS: D5W 50 IV ×2 (16:50→19:04)
[2024-02-04] MEDS: AMBISOME 150 MG IV (16:51)
[2024-02-04 17:04] LABS: Urine Albumin Negative (Neg - Trace); Urine Bilirubin Negative (Negative); Urine Character Clear (Clear); Urine Color Yellow; Urine Glucose Negative (Negative); Urine Ketone Negative (Negative); Urine Leukocyte Negative (Negative); Urine Nitrite Negative (Negative); Urine Occult Blood Negative (Negative); Urine Specific Gravity 1.015 (<1.030); Urine Urobilinogen Negative (Neg - 1+)
--- NOTE | 2024-02-04 18:47 | W.PN.HOSP.TC ---
Addendum entered and electronically signed by Brooklynn Bah MD 02/04/24 21:28:
I saw and evaluated the patient independently. I reviewed the resident�s note and agree with findings and plan as documented by Dr. Sherwood.
GENERAL: well developed, well nourished, male in no apparent distress
HEENT: NC/AT--O2 requirements
HEART: regular rate and rhythm, +S1, +S2, JACK at right sternal border noted
LUNGS : clear to auscultation bilaterally
ABDOM: soft, nontender, nondistended, + bowel sounds
EXT: no cyanosis, clubbing, or edema
NEUROLOGIC: unable to follow commands--minimal speech
Acute change in mental status with dysarthria--rapid response and stroke alert called 02/03/24--pt moved to ICU--loaded with Keppra--apprec neuro--EEG without seizure activity--MRI showed 6mm acute stroke--did have STAT LP with opening pressure 13 so
not increased CSF production/elevated pressures
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
done which was positive for Cryptococcus--pt without risk factors (not HIV, no cancer, no immunosuppression, no biologics)--truly unknown reason why pt has this--apprec ID--cont liposomal amphotericin B, follow blood cultures as they are positive
too--with heart murmur, check ECHO --Flucytosine started but stopped due to WAI
WAI --creat peaked at 2.4--down to 1.6--cont IVF--apprec nephrology
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
Hyperlipidemia--cont lipitor
Generalized weakness-- PT/OT--now with acute stroke, will need re-eval by PT/OT/speech and perhaps PM&R
Thyroid nodule--followed by endocrine but apparently discharged by them--biopsy in 2022 was negative--TSH WNL
DVT prophylaxis
Code status --Full code
Total Critical Care Time 31 minutes. I was immediately available to the patient and staff. I personally examined, reviewed labs, diagnostic images/reports, interpretations, treatment plans, discussed patient care with other providers and family
or caregivers (if patient is unable to make decisions), entered orders as appropriate and documented the medical record.
Original Note:
Today's Communication/Plan
-
Follow up with infectious disease and neurology
Trend CMP, CBC
f/u with results
Assessment / Plan
Assessment / Plan
Acute change in mental status with dysarthria:
- On 02/02- patient had a stroke alert called for weakness in left arm, dysphagia, and dysarthria
- Emergency CT scan (02/02)- showed negative findings for stroke
- On physical exam, responds to verbal stimulus, strength is normal, reflexes are normal, awake alert and oriented, negative pronator drift
- He had a LP with opening pressure performed and the opening pressure was 13 compared to 25 on the previous lumbar puncture.
- CSF cryptococcal antigen test showed wbc of 43, glucose <20, protein 189 which is consistent with infection in the csf.
- ID, neurology, nephrology, dividing machine operator consulted
Heart murmur:
- A murmur is heard over the aortic area on auscultation.
- echocardiogram ordered (02/03)
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
- CT head on 01/17- no acute intracranial abnormalities
- Brain MRI 01/25- no evidence of acute infarct/bleed
- EEG ( 01/27)- no evidence of seizures recorded
- Continue Pt/OT - patients balance/ coordination is off
- Lumbar puncture showed opening pressure- 25, 20 cc of CSF collected, WBC count of 45, Lymphocytes 5%, granulocyte 1%, macrophages 44%, glucose <20, total protein 136
- continue on Amphotericin B ( 5th day), continue to monitor patient in the hospital for duration of treatment to monitor for side effect
- Flucytosine was stopped today (02/01)
- send out CSF test shows growth of Cryptococcus antigen (01/30)
- ID consulted (01/30)- advised to continue the current dosage of lipo amphotericin 3 mg/kg, and c/w flucytosine 25mg/kg/dose.
- Due to side effect of medication observe the daily mag, K, Ca, Na, CBC, CMP
- Blood culture (02/01)- gram stain of blood culture reveals budding yeast
- Renal u/s (02/01)- showed renal cysts and prostatomegaly extending into the bladder base
- Repeat blood cultures (02/02)- to see if blood is cleared of fungal pathogen
Hyponatremia
- His creatinine level was 1.6 (02/03) from 1.8 (02/02)- trending down, 100 cc/hr normal saline volume bolus given along with medication
- Na level 138- (02/03) morning time
- [place] [facility] [place]
- Nephrology consulted (02/01) - advised follow up BMP, holding off on IV fluids, and doing intermittent bladder scans. If
blood pressure drops we can order a volume bolus as needed, will monitor along with ID
Thyroid nodule
-Patient had been discharged by endocrinology
-Nodule biopsy in 23 was negative for any malignancy
-TSH/FT4 WNL
Hyperlipidemia
-continue on atorvastatin
Generalized weakness
- no evidence of current infection
-chest xray- normal
- UA is normal
-COVID-negative
Anticipated Discharge: 24 - 48 hours
Subjective/Interval History
-
Date of Service: February 04, 2024
Objective Data
-
Vital Signs:
Vital Signs
Temp Pulse Resp BP Pulse Ox
99.4 F 57 17 146/63 100
02/04/24 15:36 02/04/24 18:00 02/04/24 18:00 02/04/24 18:00 02/04/24 18:00
I&O
02/03/24 02/04/24 02/05/24
06:59 06:59 06:59
Intake Total 1920 / 1920 1200 / 1300 1900 / 1900
Output Total 1550 / 1550 300 / 300 475 / 475
Balance 370 / 370 900 / 1000 1425 / 1425
Review of Systems
-
History Source: Patient
All other systems: Reviewed and negative
Physical Exam
-
General: Well Developed, Well Nourished and Comfortable
HEENT: Normocephalic and Atraumatic
Respiratory: Clear to Auscultation
Cardiac: Murmur (heard over the aortic area )
GI: Soft, Nontender and Nondistended
Skin: Warm and Dry
Neuro: DTR's Intact & Symmetrica and Slurred Speech
Psych: Calm
Data Reviewed
-
Labs: Labs Reviewed by me and Discussed with Physician
--- NOTE | 2024-02-04 20:00 | PTCARENOTE ---
On assessment pt AAOx3 but lethargic, wax/wean per dayshift and MD is aware, low grade temps, rigors noted at times, SB/SR, 2LNC, lungs clear, L nare dobhoff at 64cm, NPO, incontinent of B/B, condom cath applied, skin intact, bed alarm on, call andrews
in reach.
--- NOTE | 2024-02-04 20:54 | EEG.RPT ---
Electroencephalogram Report
Recording
Date of EE02/04/24
Type of EEG: Routine
Length of EEG recordin minutes
Done with Video Recording: Yes
Patient Status: Inpatient
Recording Conditions: Awake
Hyperventilation Performed: No
Photic Stimulation Performed: Yes
Report
METHODS
A 21 channel digitized electroencephalogram was performed at [facility]. The 10/20 international system of electrode placement was used. In addition to EEG, the patient was monitored for EKG. The duration of the recording was 63 minutes.
BACKGROUND
During the awake state, the background consisted of diffuse slowing of the background to 3-4Hz frequencies.
PHOTIC STIMULATION
Photic stimulation using a step-montoya increase in photic frequency varying from 1-31 [employer] resulted in no driving responses but no appearance of abnormal activity.
CLINICAL EVENTS
One episode of 'upper body tremor' had no epileptiform correlate. Diffuse slowing of the background with overlying muscle artifact was seen during the event.
EKG
EKG revealed normal sinus rhythm.
INTERPRETATION AND CLINICAL CORRELATION
This EEG showed severe diffuse slowing of the background which can be seen with moderate to severe diffuse cerebral dysfunction and is nonspecific in terms of etiology. One episode of 'upper body tremor' had no epileptiform correlate. No seizures
were noted.
[2024-02-04] MEDS: [UNRECOGNIZED DRUG - OTHER] 1750 MG TUBE (22:02)
[2024-02-04] MEDS: TYLENOL ORAL SOLUTION 1000 MG TUBE (22:03)
[2024-02-04 23:40] LABS: Glucose - Point of Care 136 mg/dl (70-99)
[2024-02-04] MEDS: NEO-SYNEPHRINE 250 IV (23:42)
[2024-02-05] VITALS (115 sets, daily range): BP systolic 88–175; BP diastolic 46–127
--- NOTE | 2024-02-05 01:31 | PTCARENOTE ---
At 2300 Neuro assessment pt noted to be responsive only to deep pain, unable to answer questions or follow commands, BP was low, maps 60-63, low grade temps, rectal probe placed, blood sugar 136, BLOOD BANK TECHNICIAN made aware and at bedside, neurology was called
and made aware. Pt was started on BONNY gtt and STAT CT head was ordered and completed. 0100 assessment pt more alert and able to state name but remains very lethargic. no new orders at this time.
[2024-02-05] MEDS: HEPARIN 5000 UNITS SC ×3 (01:42→15:48)
--- NOTE | 2024-02-05 04:24 | PTCARENOTE ---
pt remains lethargic, able to state first name then mumbles words after that, afebrile, on BONNY gtt, SB on the monitor, bed alarm on.
--- NOTE | 2024-02-05 05:15 | W.PN.UPDATE ---
Update Note
Progress Note Update
02/05/24
0045- Patient having increased lethargy, SBP 80-90s, neglect on right arm/leg with noxious stimuli, able to slightly flex right hip and knee with noxious stimuli. Does not follow complex 2 step commands, moves left arm and leg to bat away noxious
stimuli. Not able to verbalize or answer questions to orientation. Discussed neuro exam with Dr. Mascorro, neurologist, recommendations received: will obtain STAT Ctscan of the head w/o contrast and nnamdi-synephrine gtt for goal SBP 120-140.
Ctscan of the head negative for any new intracranial abnormalities.
[2024-02-05 05:27] LABS: Hematocrit 37.8 % (39.0-52.0); Hemoglobin 13.6 g/dL (13.0-18.0); Mean Corpuscular Hgb 32.8 pg (27.0-31.0); Mean Corpuscular Volume 91.1 fL (80.0-94.0); Mean Platelet Volume 8.6 fL (7.4-10.4); Platelet Count 203 10^3/uL (130-400); Red Blood Cell Count 4.15 10^6/uL (4.70-6.10); White Blood Cell Count 12.7 10^3/uL (4.8-10.8)
[2024-02-05 05:53] LABS: ALT (SGPT) 14 U/L (0-50); AST (SGOT) 22 U/L (17-59); Albumin 3.3 g/dl (3.5-5.0); Alkaline Phosphatase 54 U/L (38-126); Blood Urea Nitrogen 30 mg/dl (9-20); Calcium 9.6 mg/dl (8.4-10.2); Carbon Dioxide 24 mmol/L (22-30); Chloride 102 mmol/L (98-107); Estimated Creatinine Clearance 35 ml/min; Glucose 103 mg/dl (70-99); Potassium 3.9 mmol/L (3.5-5.1); Sodium 136 mmol/L (135-145); Total Bilirubin 1.2 mg/dl (0.2-1.3); Total Protein 5.7 g/dl (6.3-8.2); eGFR 43.29
[2024-02-05] MEDS: LOW STRENGTH ASPIRIN 81 MG PO (08:04)
[2024-02-05] MEDS: MAGNESIUM OXIDE 500 MG PO (08:04)
[2024-02-05] MEDS: LIPITOR 20 MG PO (08:04)
[2024-02-05] MEDS: [UNRECOGNIZED DRUG - OTHER] 1750 MG TUBE ×2 (08:04→22:41)
--- NOTE | 2024-02-05 08:04 | W.PN.INTV ---
Today's Communication / Plan
Recommendations
ABx per ID
q1hr neurochecks
MRA head/neck
Aspiration precautions
NPO with NEWBORN HEARING SCREENER evaluation
If fails NEWBORN HEARING SCREENER, start tube feeds
MAP>65
ASA + statin
Neuro recs appreciated
Change jonatan to levo and wean off as tolerated
Assessment
-
Assessment: 78-year-old male non-smoker with a past medical history of diverticulosis, hiatal hernia, hypothyroidism, history of retinal vein occlusion, hypertension, cervical radiculopathy and chronic pain syndrome who presents with generalized
weakness and feeling off balance. Symptoms have been going on and worsening over the last week. He also endorsed blurry vision with headache. For the last 2 weeks he has been having poor appetite with weakness. Denies history of stroke. An
outpatient MRI C-spine showed foraminal narrowing with moderate canal stenosis without cord compression. In the ER he was afebrile to 97.7 �F, pulse rate 63, breathing at 20 breaths/min, BP 138/74 and saturating 98% on room air. Initial labs
showed mild leukocytosis to 11, Hb 16.8, sodium 132, chloride 90, calcium 10.3, urinalysis negative for UTI and COVID antigen negative. Initial CXR showed no acute cardiopulmonary disease. He was given IVF with NS 0.1% x1 L, and Tylenol, and
admitted to the hospitalist service with neurology consulted. MRI brain on 01/26/2024 showed no evidence of any acute CVA or ICH. IR performed LP on 01/27, with opening pressure 25 cmH2O, and cryptococcus neoformans + yeast seen on CSF fluid culture.
ID consulted and he was initially on Diflucan which was then changed to amphotericin B + flucytosine. Patient developed WAI and nephrology was consulted. Today, patient became more lethargic, with plans for repeat LP and patient transferred to the
ICU for closer monitoring. Sustainable Design Coordinator services consulted for additional management/recommendations.
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
Impression:
#AMS with concern for CVA versus worsening encephalo�meningitis --> MRI brain done on 02/04/2024 and confirmed left acute CVA involving the cerebral peduncle (likely related to known cryptococcal meningitis)
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
#Positive blood culture with yeast due to cryptococcaemia
#LLL aspiration pneumonia
#Septic shock
#Hyponatremia (mild) - resolved
#Acute kidney injury (baseline Cr 0.8)
#History of chronic pain syndrome
#History of diverticulosis
Plan:
- q1hr neurochecks with NIHSS q shift
- Not a TNK candidate given unclear time of onset/LKN
- Stat CT head for any change in neurochecks with notification to neurology + steam generating powerplant mechanic/hospitalist
- EEG showed severe diffuse slowing with no seizures ing
- Check MRA head/neck
- Keep NPO given waxing/waning mental status and check NEWBORN HEARING SCREENER eval
- Dobhoff tube placed for PO access; if fails NEWBORN HEARING SCREENER then start tube feeds
- ASA + high-intensity statin; goal LDL<70 (56 on 01/26/2024; of note, A1C: 5.4 on 01/26/2024)
- Patient currently on Jonatan-Synephrine due to hypotension overnight
- Given his septic etiology for hypotension, change Jonatan-Synephrine to Levophed, titrating to MAP >65; wean off as tolerated
- Continue with antifungals as per ID
- Currently on amphotericin B + flucytosine
- Given opacification seen in the left lower lobe on CXR, ceftriaxone started
- Sputum Cx collected --> follow up species
- Continue IVF with NS @ 100cc/hr with stop date to avoid volume overload
- Aspiration precautions
- Follow-up CSF culture from repeat LP on 02/03/2024
- CSF cytopathology from 02/03/2024 shows rare budding yeast which are similar to prior CSF cytopathology on 01/28/2024. No overt evidence for neoplastic process
- Renally dose all medication/antifungals
- Trend UOP, I/O and sCr
- Monitor K with goal 3.5-5
- Maintain SpO2 >90-94%
- Replete electrolytes with K>4, Mg>2
- Maintain euglycemia with goal BG 140-180
- prn nebulized bronchodilators � patient currently not bronchospastic
- Incentive spirometer once he is more awake and able to perform ADLs
- DVT ppx: HSQ
Critical care statement: A total of 41 minutes of critical care time was provided for this patient today. This includes management of unstable vital signs, evaluation of the patient at bedside, reviewing the patient's pertinent medical records
including radiographs, microbiology, laboratory evaluations, and discussion with primary team, consultants, pharmacy, nutrition, physical therapy, case management, charge nurse, critical care nursing, and respiratory therapy.
Data:
CT Head 02/03/2024:
No acute intracranial abnormalities.
Findings compatible with diffuse cortical atrophy with nonspecific white matter changes
MRI brain 01/26/2024:
1. No MRI evidence for acute infarct or intracranial hemorrhage.
2. 4 mm chronic lacunar infarct in the inferior right basal ganglia.
3. Mild white matter leukoaraiosis in the frontal and parietal lobes.
4. Mild to moderate diffuse cerebral and cerebellar volume loss.
5. Mild paranasal sinus mucosal disease.
MRI Brain 02/04/2024:
There is a 6 mm focus of restricted diffusion within the left cerebral peduncle consistent with acute infarction.
There is mild atrophy with sequelae of mild small vessel ischemic disease, unchanged from prior.
FLAIR nonsuppression within the fourth ventricle and to a lesser extent the prepontine cistern which is likely artifactual in nature.
Subjective Dataa
Subjective Data
Date of Service:
Date of Service: February 05, 2024
Chief Complaint: Sustainable Design Coordinator Follow Up
Subjective:
Patient seen and evaluated this morning. Patient still has waxing and waning mental status. Febrile overnight with Tmax 100.8 �F. TTE was done this AM. Jonatan-Synephrine started last night at 11 PM - currenty on 40mcg/min. He was obtunded at the
time with SBP in 80s, which then resolved s/p jonatan. CT head done last night showed no acute intracranial abnormality. Currently: heart rate 59, BP 109/63 and saturating 93% on room air
Review of Systems
General: Other (Unable to obtain given patient's acute clinical status)
Objective Data
Data Reviewed
Vital Signs / I&O / Oxygen:
Vital Signs
Temp Pulse Resp BP Pulse Ox
100.6 F H 67 18 106/65 95
02/05/24 07:30 02/05/24 09:15 02/05/24 09:15 02/05/24 09:15 02/05/24 09:15
Intake and Output
02/04/24 02/05/24 02/06/24
06:59 06:59 06:59
Intake Total 1200 / 1300 3166 / 3278 330 / 330
Output Total 300 / 300 1575 / 1575 400 / 400
Balance 900 / 1000 1591 / 1703 -70 / -70
SaO2 95
Nasal Cannula flow liters per 2
minute
Physical Exam
General: Respiratory Distress (negative), Comfortable, Chills (negative) and Sweats (negative)
HEENT: Normocephalic and Anicteric
Cardiovascular: S1-S2 and Peripheral Edema (negative)
Respiratory: Clear, Wheeze (negative), Crackles (negative), Rhonchi (negative) and Non-Labored Respirations
GI: Soft, Non Distended, Non Tender and Normal Bowel Sounds
Neurology: Tremors (negative), Lethargic, Other (+2 bilaterally and sluggish) and Other (Slight right-sided facial droop)
Skin: Warm and Dry
Labs/Micro/Reports
Lab Data
02/05/24 05:18
02/05/24 05:18
Microbiology
02/04/24 04:26 Blood/Venous Blood Culture - Preliminary
No Growth in 24 hours- Final report to follow
02/03/24 14:04 Blood/Venous Blood Culture - Preliminary
No Growth in 24 hours- Final report to follow
02/03/24 17:15 Csf CSF Culture - Preliminary
No Growth After 18-24 Hours
02/03/24 17:15 Csf Gram Stain - Preliminary
01/29/24 11:11 Blood/Venous Blood Culture - Preliminary
Yeast
Additional testing on request
01/29/24 11:11 Blood/Venous Gram Stain - Preliminary
01/29/24 04:53 Blood/Venous Blood Culture - Final
No Growth - Final Report
01/28/24 15:35 Csf Fungus Mold Identification - Final
Cryptococcus neoformans
01/28/24 13:45 Csf CSF Culture - Final
Yeast
01/28/24 13:45 Csf Gram Stain - Final
[2024-02-05] MEDS: NSS 1000 IV (08:05)
[2024-02-05] MEDS: KEPPRA 1000 MG IV ×2 (08:05→22:41)
--- NOTE | 2024-02-05 08:51 | PTCARENOTE ---
Received pt @ change of shift. Neuro status waxing/waning as per prior RN. Currently drowsy, opens eyes to voice, not initiating conversation, not stating name or birthdate, said No to all: 'are you in school, are you home, are you in a hospital.'
Did not follow simple commands. PERRLA; 2mm/sluggish. Able to move all extremities, RN not able to state weakness on one side greater than the other. SB-SR on monitor with frequent PVCs. SpO2 100% on 2LNC. Removed supplemental oxygen and SpO2 now
96%. Strict NPO status maintained. Dobhoff placement checked and meds administered. Assisted w complete oral hygiene. Inc b/b. CC in place draining clear, yellow urine. #22 R wrist w NSS@ 100mL/hr and Neosynephrine to maintain SBP 120-140mmHg.
Repositioned; bed alarm active. Safe environment maintained.
--- NOTE | 2024-02-05 09:02 | W.PN.ID1 ---
Addendum entered and electronically signed by Naa John MD 02/05/24 16:05:
more alert this afternoon
in good spirits
switched to levophed
sputum culture was obtained - gram stain many mixed bacterial morphotypes
Original Note:
Date of Service
Date of Service: February 05, 2024
Today's Communication
would replace K today
favor persistent infection over PIIRS given rapid clinical improvement with restarting flucytosine, follow MRI and clinically
start clinical trial of ceftriaxone for possible aspiration
Assessment / Plan
Fever
- switched to core Ts, fever via this route is define as over 101.0
- UA - negative
- blood cultures x2 in progress no growth to date
- 02/02 CSF culture remains no growth
- cxr: worsening L basilar atelectasis - less likely pneumonia
- obtain sputum if feasible
- trial of ceftriaxone for possible aspiration
- covid ag negative
- central fever and PIIRS on the differential as well (see below)
- follow clinically
Cryptococcal meningitis (immunocompetent patient)
- Confirmed on antigen testing of CSF 1:15,334; crypto ag of serum 1:3518
- blood cultures from 01/28 now positive for budding yeast; 02/02 blood cultures x2 in progress no growth to date
- CSF 02/02 gram stain no organisms and no growth to date; however CSF glucose remains quite low: persistent infection vs PIIRS (post infectious inflammatory response syndrome); overall favor persistent infection as already with some clinical
improvement post restarting the flucytosine, follow clinically
- follow MRI
- awaiting repeat crag on csf, beyond that do not plan to trend further
- restart flucytosine 1500 mg po BID, will move to 1750 when that formulation is available (ordered)
- continue lipo ampho B 3 mg/kg daily (no need to adjust dose for renal impairment).
- daily mag levels, K, Ca, Na
- reordered mag levels today
- aggressive K repletion to 4.0+ PRN
- preemptively started mag replacement - continue
- avoid nephrotoxic agents as feasible
- pretreatment benadryl, tylenol
- would consider pretreatment with 500 ccs NS bolus in addition to maintenance fluids - message left for nephrology via tiger text
- daily assessment for signs and sxs of elevated intracranial pressure.
- plan at least 2 weeks of ampho + flucytosine, induction will be complete when repeat CSF culture is negative - would not stop early given high initial titer
- follow clinically
����������������������������������������������������������
Chief Complaint
-: Other (cryptococcal meningitis)
Subjective / Review of Systems
febrile to 100.8 axillary, switched to rectal
bp stable
increasing lethargy overnight, stat CT head no new intracranial abnormalities
more alert today - following more 1 step commands
shakes his head no hedache
had difficulty naming his
Vital Signs / Physical Exam
Vital Signs
Vital Signs
Temp Pulse Resp BP Pulse Ox
100.6 F H 68 17 136/84 100
02/05/24 07:30 02/05/24 08:30 02/05/24 08:30 02/05/24 08:30 02/05/24 08:30
Physical Exam
Constitutional: Acutely Ill
Cardiovascular: Regular Rate and S1/S2; Negative Murmur or Rub
Pulmonary: Clear and Symmetric; Negative Wheezes or Rales
Gastrointestinal: Soft, Non Tender, Non Distended and Normal Bowel Sounds
Skin: Warm and Dry; Negative Rash or Jaundice
Neurological: Awake, Alert and Other (following 1 step commands, moving all extremities)
Lines: PIV
Objective Data
Lab Data
Lab Results
02/05/24 05:18
02/05/24 05:18
ESR 6 mm/hour (0-20) 01/26/24 13:48
PT 14.7 Sec (11.4-14.6) H 01/28/24 10:25
INR 1.14 01/28/24 10:25
Estimated Creat Clear 35 ml/min 02/05/24 05:18
Total Bilirubin 1.2 mg/dl (0.2-1.3) 02/05/24 05:18
AST 22 U/L (17-59) 02/05/24 05:18
ALT 14 U/L (0-50) 02/05/24 05:18
Alkaline Phosphatase 54 U/L (38-126) 02/05/24 05:18
Most recent labs reviewed as above in addition:
new leukocytosis to wbc 12.7
cr stable at 1.6 compared to yesterday
CXR reviewed - ateleactasis vs less likely pneumonia
Micro Results:
02/04/24 04:26 Blood Culture - Preliminary
Blood/Venous No Growth in 24 hours- Final report to follow
02/03/24 14:04 Blood Culture - Preliminary
Blood/Venous No Growth in 24 hours- Final report to follow
02/03/24 17:15 CSF Culture - Preliminary
Csf No Growth After 18-24 Hours
Gram Stain - Preliminary
01/29/24 11:11 Blood Culture - Preliminary
Blood/Venous Yeast
Additional testing on request
Gram Stain - Preliminary
01/29/24 04:53 Blood Culture - Final
Blood/Venous No Growth - Final Report
01/28/24 15:35 Fungus Mold Identification - Final
Csf Cryptococcus neoformans
01/28/24 13:45 CSF Culture - Final
Csf Yeast
Gram Stain - Final
01/26/24 13:45 Acid Fast Bacilli Smear - Preliminary
Csf Acid Fast Bacilli Culture - Preliminary
01/28/24 13:45 Fungal Culture - Preliminary
Csf Yeast
01/25/24 19:50 Salmonella/Shigella Culture - Final
Feces/Stool No Salmonella, Shigella, Aeromonas or Plesiomonas species
isolated.
Campylobacter Culture - Final
No Campylobacter species isolated.
Shiga Toxin Test - Final
No E. coli Shiga Toxin 1 or 2 detected.
Stool Leukocytes - Final
01/28/24 13:45 Meningitis/Encephalitis Panel (PCR) - Final
Csf
Care Review
Plan reviewed with: Physician (Neuro - mental status, meds Nephro - IVF)
--- NOTE | 2024-02-05 09:07 | W.PN.NEPH.PH ---
Today's Communication / Plan
-
continue IVF
Assessment/Plan
-
Assessment
Hyponatremia
Fungal meningitis
Hyperlipidemia
WAI
Plan:
maintain MAP > 65
follow BMP
follow Mg, on oral mag
continue antifungals
continue IVF
for echo
if BP stablizes would benefit from beta blockade
critical care time 31 minutes
-
-
Date of Service: February 05, 2024
CC / HPI / ROS
-
Chief Complaint:
hyponatremia
History of Present Illness:
Na stable
on lipid amphoB/flucytocine for fungal meningitis
now on neosynephrine gtt for hypotension
Creatinine stable at 1.6
lethargic
PVCs on telemetry
Review of Systems:
low grade temp
porrly communicative, DHT in place, condom catheter
Labs
-
Labs:
WBC 12.7 10^3/uL (4.8-10.8) H 02/05/24 05:18
RBC 4.15 10^6/uL (4.70-6.10) L 02/05/24 05:18
Hgb 13.6 g/dL (13.0-18.0) 02/05/24 05:18
Hct 37.8 % (39.0-52.0) L 02/05/24 05:18
Plt Count 203 10^3/uL (130-400) 02/05/24 05:18
Sodium 136 mmol/L (135-145) 02/05/24 05:18
Potassium 3.9 mmol/L (3.5-5.1) 02/05/24 05:18
Chloride 102 mmol/L (98-107) 02/05/24 05:18
Carbon Dioxide 24 mmol/L (22-30) 02/05/24 05:18
BUN 30 mg/dl (9-20) H 02/05/24 05:18
Creatinine 1.6 mg/dL (0.7-1.3) H 02/05/24 05:18
eGFR 43.29 02/05/24 05:18
Glucose 103 mg/dl (70-99) H 02/05/24 05:18
Calcium 9.6 mg/dl (8.4-10.2) 02/05/24 05:18
Albumin 3.3 g/dl (3.5-5.0) L 02/05/24 05:18
Physical Exam
-
Vital Signs:
Vital Signs
Temp Pulse Resp BP Pulse Ox
100.6 F H 68 17 136/84 100
02/05/24 07:30 02/05/24 08:30 02/05/24 08:30 02/05/24 08:30 02/05/24 08:30
Cardiovascular:: Regular rate and rhythm
Respiratory:: Bilateral: Coarse
Lung Excursion:: Normal
Abdomen:: Nontender and Soft
Bowel Sounds:: Normal
Extremity Edema:: None: Bilateral:
--- NOTE | 2024-02-05 10:20 | W.PN.HOSP.TC ---
Addendum entered and electronically signed by Brooklynn Bah MD 02/05/24 20:24:
I saw and evaluated the patient independently. I reviewed the resident�s note and agree with findings and plan as documented by Dr. Sherwood.
GENERAL: well developed, well nourished, male in no apparent distress
HEENT: NC/AT--O2 requirements
HEART: regular rate and rhythm, +S1, +S2, JACK at right sternal border noted
LUNGS : clear to auscultation bilaterally
ABDOM: soft, nontender, nondistended, + bowel sounds
EXT: no cyanosis, clubbing, or edema
NEUROLOGIC: unable to follow commands--minimal speech
Acute change in mental status with dysarthria--rapid response and stroke alert called 02/03/24--pt moved to ICU--loaded with Keppra--apprec neuro--EEG without seizure activity---did have STAT LP with opening pressure 13 so not increased CSF
production/elevated pressures--MRI showed 6mm acute stroke--appreciate neurology--continuing rest of stroke workup--echocardiogram without signs of vegetations--MRA of the head and neck pending--plan to keep systolic blood pressure between 120 and
140 per neurology
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
done which was positive for Cryptococcus--pt without risk factors (not HIV, no cancer, no immunosuppression, no biologics)--truly unknown reason why pt has this--apprec ID--cont liposomal amphotericin B, follow blood cultures as they are positive
too---Flucytosine started but stopped due to WAI--liposomal amphotericin B is known to reduce potassium, follow and replete
WAI --creat peaked at 2.4--down to 1.6--cont IVF--apprec nephrology
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
Hyperlipidemia--cont lipitor
Generalized weakness-- PT/OT--now with acute stroke, will need re-eval by PT/OT/speech and perhaps PM&R
Thyroid nodule--followed by endocrine but apparently discharged by them--biopsy in 2022 was negative--TSH WNL
DVT prophylaxis
Code status --Full code
Original Note:
Today's Communication/Plan
-
F/u with neurology, ID, Nephrology
Follow up with air drier machine operator
trend CBC, CMP, mag, electrolytes
continue current medications
Assessment / Plan
Assessment / Plan
Acute change in mental status with dysarthria:
- On 02/02- patient had a stroke alert called for weakness in left arm, dysphagia, and dysarthria
- Emergency CT scan (02/02)- showed negative findings for stroke
- On physical exam (02/04) does not respond to verbal stimulus, not oriented to time/place, strength is normal, reflexes are normal, negative pronator drift
- He had a LP with opening pressure performed and the opening pressure was 13 compared to 25 on the previous lumbar puncture.
- CSF cryptococcal antigen test showed wbc of 43, glucose <20, protein 189 which is consistent with infection in the csf.
- ID, neurology, nephrology, mysql database administrator are on board
- Neurology added Keppra 1g IV q12 (02/03)- seizure prophylaxes
- MRA head neck ordered by neurology (02/03)- still pending
- Automation And Controls Manager recommended q1hr neurochecks with NIHSS q shift, Renally dose all medication/antifungals, Maintain SpO2 >90-94%, Replete electrolytes with K>4, Mg>2, Maintain euglycemia with goal BG 140-180
- Head CT (02/04)- shows no new intracranial abnormality
- Repleted IV potassium elixir 40 (02/04)
- Placed dietary consult (02/04)- started feeding tube Jevity 1.5
Heart murmur:
- A murmur is heard over the aortic area on auscultation.
- echocardiogram normal (02/04)- shows no vegetations and a LVEF of 65-70%
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
- CT head on 01/17- no acute intracranial abnormalities
- Brain MRI 01/25- no evidence of acute infarct/bleed
- EEG ( 01/27)- no evidence of seizures recorded
- Continue Pt/OT - patients balance/ coordination is off
- Lumbar puncture showed opening pressure- 25, 20 cc of CSF collected, WBC count of 45, Lymphocytes 5%, granulocyte 1%, macrophages 44%, glucose <20, total protein 136
- continue on Amphotericin B ( 6th day), continue to monitor patient in the hospital for duration of treatment to monitor for side effect
- Flucytosine was stopped today (02/01)
- send out CSF test shows growth of Cryptococcus antigen (01/30)
- ID consulted (01/30)- advised to continue the current dosage of lipo amphotericin 3 mg/kg, and c/w flucytosine 25mg/kg/dose.
- Due to side effect of medication observe the daily mag, K, Ca, Na, CBC, CMP
- Blood culture (02/01)- gram stain of blood culture reveals budding yeast
- Renal u/s (02/01)- showed renal cysts and prostatomegaly extending into the bladder base
- Repeat blood cultures (02/04)- no growth seen
Hyponatremia
- His creatinine level is 1.6 (02/04)- trending down, 100 cc/hr normal saline volume bolus given along with medication
- Na level 136- (02/04) morning time
- [facility] [place] [facility]
- Nephrology consulted (02/01) - advised follow up BMP, holding off on IV fluids, and doing intermittent bladder scans. If
blood pressure drops we can order a volume bolus as needed, will monitor along with ID
Thyroid nodule
-Patient had been discharged by endocrinology
-Nodule biopsy in was negative for any malignancy
-TSH/FT4 WNL
Hyperlipidemia
-continue on atorvastatin
Generalized weakness
- no evidence of current infection
-chest xray- normal
- UA is normal
-COVID-negative
Anticipated Discharge: 24 - 48 hours
Subjective/Interval History
-
Date of Service: February 05, 2024
Overnight, Patient has increased lethargy, SBP 80-90s. Cant follow complex 2 step commands. Non responsive to verbal stimuli or answer questions to orientation. Obtained STAT Ctscan of the head w/o contrast that was negative for any new
intracranial abnormalities and nnamdi-synephrine gtt for maintaining SBP 120-140.
Objective Data
-
Labs:
Laboratory Results
02/05/24
05:18
WBC 12.7 H
Hgb 13.6
Hct 37.8 L
Plt Count 203
Sodium 136
Potassium 3.9
Chloride 102
Carbon Dioxide 24
BUN 30 H
Creatinine 1.6 H
Glucose 103 H
Calcium 9.6
Total Bilirubin 1.2
AST 22
ALT 14
Alkaline Phosphatase 54
Vital Signs:
Vital Signs
Temp Pulse Resp BP Pulse Ox
100.6 F H 54 11 120/69 98
02/05/24 07:30 02/05/24 10:00 02/05/24 10:00 02/05/24 10:00 02/05/24 10:00
I&O
02/04/24 02/05/24 02/06/24
06:59 06:59 06:59
Intake Total 1200 / 1300 3166 / 3278 442 / 442
Output Total 300 / 300 1575 / 1575 400 / 400
Balance 900 / 1000 1591 / 1703 42 / 42
Review of Systems
-
History Source: Patient
Respiratory: Denies Trouble Breathing
Cardiac: Denies Chest Pain
Neuro: Denies Dizzy, Headache, Numbness or Seizures
Physical Exam
-
General: Well Developed and Well Nourished
HEENT: Normocephalic and Atraumatic
Respiratory: Clear to Auscultation
Cardiac: Irregular Rhythm (murmer over the aortic area)
GI: Soft, Nontender and Nondistended
Musculoskeletal: No Clubbing, No Cyanosis and No Edema
Neuro: Awake, Alert and Other (dysarthria, deep tendon reflexes normal, unable to assess cranial nerve function, ); Negative Oriented or AO x 3
Data Reviewed
-
Medical Tests (Nuc Med, Echo etc): Image personally visualized and interpreted
Labs: Labs Reviewed by me and Discussed with Physician
[2024-02-05 10:39] LABS: Magnesium 1.8 mg/dl (1.6-2.3)
--- NOTE | 2024-02-05 11:01 | W.PN.NEURO.1 ---
Today's Communication / Plan
-
avoid hypotension
mra head/neck
echo
Neuro Assessment/Plan
Assessment
78 yr. old male with h/o lightheadedness confusion and ataxia since November 2023. 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 Had worsening mental status on 02/02, then overnight on 02/03-02/04 developed
R sided weakness and neglect during an episode of hypotension. Blood pressure has been labile.
-MRI brain 02/04/24:
There is a 6 mm focus of restricted diffusion within the left cerebral peduncle consistent with acute infarction.
There is mild atrophy with sequelae of mild small vessel ischemic disease, unchanged from prior.
-repeat HCT done overnight after worsening of weakness, neglect: no acute findings
-EEG, 02/04/24: diffuse slowing, no seizure
Previous testing:
-MRI brain 01/26/24: No MRI evidence for acute infarct or intracranial hemorrhage. 4 mm chronic lacunar infarct in the inferior right basal ganglia. Mild white matter leukoaraiosis in the frontal and parietal lobes. Mild to moderate diffuse cerebral
and cerebellar volume loss. Mild paranasal sinus mucosal disease.
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 3.1 mm anterolisthesis of C4 on C5 secondary to severe left-sided facet joint arthrosis. Moderate-sized central disc herniation at C4/C5 causing mild
spinal cord compression and central canal stenosis. Mild spinal cord compression and central canal stenosis at C3/C4 and C6/C7 secondary to disc-osteophyte complexes. Severe bilateral neural foraminal narrowing at C6/C7. Severe left neural foraminal
narrowing at C4/C5. 3.3 mm anterolisthesis of C7 on T1. Severe calcific atherosclerotic plaque in the proximal left internal carotid artery. Multiple left-sided thyroid nodules.
-MRI Lumbar Spine 01/28/24: There is multilevel degenerative disc disease and facet arthropathy with superimposed endplate degenerative edema at L3-L4. There is resultant multilevel spinal canal or neuroforaminal narrowing most pronounced at L3-L4
L4-L5 where there is mild canal stenosis and mild/moderate neuroforaminal narrowing.
-EEG 01/28/24: Moderately abnormal study for age based on bursts of frontally predominant rhythmic lateralized delta activity with single episode of generalization, not clearly epileptiform. No seizures were recorded.
-repeat LP showed opening pressures of 13 cm of water.
1. 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
2. Cervical/Lumbar DJD.
3. Hyponatremia
Plan
-reviewed MRI brain findings with patient's
-avoid further episodes of hypotension; goal SBP 120-140
-needs stroke workup including MRA head/neck, echo
-on Keppra 1g IV q12
-Continue Amphotericin.
-Continue Flucytosine 25mg/kg.
-Continue ASA 81mg daily and atorvastatin; check lipid panel, [id number]
DVT prophylaxis.
Continue neurochecks, nihss
Critical care time 30 mins
Subjective/Objective
Subjective Data
Date of Service: February 05, 2024
developed R sided weakness, neglect overnight during an episode of hypotension
Objective Data
Vital Signs
Temp Pulse Resp BP Pulse Ox
100.6 F H 54 11 120/69 98
02/05/24 07:30 02/05/24 10:00 02/05/24 10:00 02/05/24 10:00 02/05/24 10:00
Lab Results
02/05/24 05:18
02/05/24 05:18
PT 14.7 Sec (11.4-14.6) H 01/28/24 10:25
INR 1.14 01/28/24 10:25
Sodium 136 mmol/L (135-145) 02/05/24 05:18
Potassium 3.9 mmol/L (3.5-5.1) 02/05/24 05:18
BUN 30 mg/dl (9-20) H 02/05/24 05:18
Glucose 103 mg/dl (70-99) H 02/05/24 05:18
Calcium 9.6 mg/dl (8.4-10.2) 02/05/24 05:18
LDL Cholesterol, Calc 56 mg/dl 01/26/24 08:00
Whole Bld Vitamin B1 212 nmol/L (70-180) H 01/26/24 10:04
Vitamin B12 439 pg/ml (239-931) 01/26/24 08:00
Patient Allergies
No Known Allergies Allergy (Verified 01/25/24 14:02)
Physical Exam
-
Attention Span & Concentration: lethargic, opens eyes to voice, follows some basic commands; had to be asked multiples time to name his --did not answer for me but she states that he did just prior to my arrival
Tremor: Hand Tremor Absent
Speech: Quality Unremarkable and Quantity Unremarkable
Cranial Nerve II: Left Eye: Pupillary Reactivity Unremarkable and Pupillary Size Unremarkable
Cranial Nerve II: Right Eye: Pupillary Reactivity Unremarkable and Pupillary Size Unremarkable
Cranial Nerves III, IV, : Extraocular Movement: Grossly Intact
Cranial Nerve V: Facial Sensation: Unable to Assess
Cranial Nerve VII: Facial Symmetry: +central R CN 7 palsy
Cranial Nerve VIII: Hearing: Other (hard of hearing)
Cranial Nerves IX, X: Palate Movement: Unable to Assess
Cranial Nerve XI: Shoulder Shrug: Unable to Assess
Cranial Nerve XII: Tongue Protusion: Unable to Assess
Muscle Strength, Overall: moved BUE at least 3/5, no spontaneous movement in BLE; held legs antigravity for a few seconds when lifted for him; somewhat charles on the right)
Deep Tendon Reflexes: Unremarkable Throughout
Coordination: Unable to Assess
Babinski Sign: Absent Bilaterally
[2024-02-05] MEDS: KCL ELIXIR 40 MEQ TUBE (11:38)
[2024-02-05] MEDS: TYLENOL ORAL SOLUTION 1000 MG TUBE ×2 (11:39→22:43)
[2024-02-05] MEDS: ROCEPHIN 2000 MG IV (11:40)
[2024-02-05] MEDS: STERILE WATER FOR INJECTION 20 ML IV (11:40)
--- NOTE | 2024-02-05 12:26 | PTCARENOTE ---
NIHSS 11. Unable to follow most commands. NT suction performed for resp culture. Pt removed condom cath. Bed bath performed and #21 condom cath replaced. Tylenol given for fever currently 101.1.
[2024-02-05] MEDS: ZENPEP DELAYED RELEASE CAPSULE 1 TUBE (12:29)
--- NOTE | 2024-02-05 13:28 | PTCARENOTE ---
Neurologist notified of NIHSS. PICC placement due to ongoing vasopressor gtt.
[2024-02-05] MEDS: STERILE WATER FOR INJECTION 10 ML IV (14:20)
[2024-02-05] MEDS: MAXIPIME 2000 MG IV (14:21)
[2024-02-05] MEDS: LEVOPHED 250 IV (15:00)
--- NOTE | 2024-02-05 15:03 | PTCARENOTE ---
dobhoff clogged. Pancrelipase infusion unsuccessful. Dobhoff removed and replaced in R nare at 75cm without issue
[2024-02-05] MEDS: TYLENOL PO (15:22)
[2024-02-05] MEDS: BENADRYL ELIXIR 25 MG TUBE (15:41)
[2024-02-05] MEDS: D5W 50 IV ×2 (15:47→18:02)
[2024-02-05] MEDS: NSS 250 IV (15:50)
[2024-02-05] MEDS: AMBISOME 150 MG IV (15:54)
--- NOTE | 2024-02-05 15:55 | CM ---
CM following re: discharge planning.
Reviewed pt's chart, met with pt. per Rounds meeting, pt is drowsy, opens eyes to voice, not initiating conversation, minimally responsive, PT/OT on hold. Neurology following. Continue supportive care.
D/C plan: uncertain at this time and will de[end on pt's progress.
CM will follow with discharge plan updates as hospitalization progresses.
--- NOTE | 2024-02-05 16:14 | PTCARENOTE ---
Pt more alert, following simple commands. Further assessment unchanged.
--- NOTE | 2024-02-05 17:39 | PTCARENOTE ---
TF started as per Heat Treat Supervisor recommendation. Condom cath not in place. Replaced with a standard length 25mm condom cath.
--- NOTE | 2024-02-05 20:00 | PTCARENOTE ---
On assessment pt AAOx3 but lethargic, wax/wean per dayshift and MD is aware, low grade temps, rigors noted at times, SB/SR, on levo gtt, RUE PICC placed today, lungs clear, new R nare dobhoff at 75cm, tube feeds started, incontinent of B/B, condom
cath applied, skin intact, bed alarm on, call andrews in reach.
[2024-02-06] VITALS (42 sets, daily range): BP systolic 50–160; BP diastolic 20–92; BMI 21.3
--- NOTE | 2024-02-06 | PTCARENOTE ---
pt continues to wax/wane with neuro assessment, LEVO gtt on standby, BPs soft, SB with PVCs, RUE PICC intact, pt removed condom cath and was incontinent x1, bed alarm on.
[2024-02-06] MEDS: HEPARIN 5000 UNITS SC ×3 (00:54→16:06)
[2024-02-06 05:03] LABS: Hematocrit 34.9 % (39.0-52.0); Hemoglobin 12.4 g/dL (13.0-18.0); Mean Corp Hgb Conc. 35.5 g/dL (33.0-37.0); Mean Corpuscular Hgb 32.5 pg (27.0-31.0); Mean Corpuscular Volume 91.4 fL (80.0-94.0); Mean Platelet Volume 8.8 fL (7.4-10.4); Platelet Count 186 10^3/uL (130-400); Red Blood Cell Count 3.82 10^6/uL (4.70-6.10); White Blood Cell Count 10.5 10^3/uL (4.8-10.8)
--- NOTE | 2024-02-06 05:26 | PTCARENOTE ---
no changes from prior assessment, continues with levo gtt, bed alarm on
[2024-02-06 05:37] LABS: Blood Urea Nitrogen 25 mg/dl (9-20); Calcium 9.3 mg/dl (8.4-10.2); Carbon Dioxide 25 mmol/L (22-30); Chloride 103 mmol/L (98-107); Estimated Creatinine Clearance 37 ml/min; Glucose 128 mg/dl (70-99); HDL Cholesterol 36 mg/dl; LDL Cholesterol, Calculated 55 mg/dl; Magnesium 1.8 mg/dl (1.6-2.3); Potassium 3.4 mmol/L (3.5-5.1); Sodium 138 mmol/L (135-145); Total Cholesterol 108 mg/dl (50-199); Triglyceride 86 mg/dl (10-149); Very Low Density Lipoprotein 17 mg/dl (0-30); eGFR 46.77
[2024-02-06] MEDS: KCL ELIXIR 40 MEQ TUBE (06:24)
--- NOTE | 2024-02-06 08:00 | PTCARENOTE ---
recd pt 0715 walking rounds, handoff, NIHSS completed with offgoing shift. Alert, talkative, first several sentences more appropriate then pt with word salad, occas strange words, more tired with answering. delay, continued to answer earlier
questions even with slow pace, pt remained with previous assessment. VS noted stable, able to make needs known, rests when indisturbed. incont, bed changed, condom cath reapplied. family present. Tube feedings continue as ordered, awaiting MRI
schedule.
--- NOTE | 2024-02-06 08:25 | W.PN.INTV ---
Today's Communication / Plan
Recommendations
ABx per ID
q4hr neurochecks
Aspiration precautions
Diet as per EMERGENCY MANAGEMENT COORDINATOR evaluation
PT/OT/PM&R
Now weaned off all vasopressors as of this AM
MAP>65
ASA + statin
Neuro recs appreciated
Nephro recs appreciated
Patient is stable for downgrade out of ICU to telemetry. Ornamental Metalwork Designer/Pulmonary service will now sign off. Please reconsult if there are any additional questions/concerns, or if patient's respiratory status deteriorates.
Assessment
-
Assessment: 78-year-old male non-smoker with a past medical history of diverticulosis, hiatal hernia, hypothyroidism, history of retinal vein occlusion, hypertension, cervical radiculopathy and chronic pain syndrome who presents with generalized
weakness and feeling off balance. Symptoms have been going on and worsening over the last week. He also endorsed blurry vision with headache. For the last 2 weeks he has been having poor appetite with weakness. Denies history of stroke. An
outpatient MRI C-spine showed foraminal narrowing with moderate canal stenosis without cord compression. In the ER he was afebrile to 97.7 �F, pulse rate 63, breathing at 20 breaths/min, BP 138/74 and saturating 98% on room air. Initial labs
showed mild leukocytosis to 11, Hb 16.8, sodium 132, chloride 90, calcium 10.3, urinalysis negative for UTI and COVID antigen negative. Initial CXR showed no acute cardiopulmonary disease. He was given IVF with NS 0.1% x1 L, and Tylenol, and
admitted to the hospitalist service with neurology consulted. MRI brain on 01/26/2024 showed no evidence of any acute CVA or ICH. IR performed LP on 01/27, with opening pressure 25 cmH2O, and cryptococcus neoformans + yeast seen on CSF fluid culture.
ID consulted and he was initially on Diflucan which was then changed to amphotericin B + flucytosine. Patient developed WAI and nephrology was consulted. Today, patient became more lethargic, with plans for repeat LP and patient transferred to the
ICU for closer monitoring. Ornamental Metalwork Designer services consulted for additional management/recommendations.
Chronic conditions MOTION GRAPHICS ARTIST: Diverticulosis, gastric polyps, thyroid nodule, colonic polyp (tubular adenoma), hiatal hernia, gastritis, hypothyroidism, retinal vein occlusion, hypertension, cervical radiculopathy, chronic pain syndrome
Impression:
#AMS with CVA --> MRI brain done on 02/04/2024 and confirmed left acute CVA involving the cerebral peduncle (likely related to known cryptococcal meningitis)
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
#Positive blood culture with yeast due to cryptococcaemia
#LLL aspiration pneumonia
#Septic shock - resolved as of this AM
#Hyponatremia (mild) - resolved
#Acute kidney injury (baseline Cr 0.8)
#History of chronic pain syndrome
#History of diverticulosis
Plan:
- Reduce neurochecks to q4hr with NIHSS q shift
- Not a TNK candidate given unclear time of onset/LKN
- Stat CT head for any change in neurochecks with notification to neurology + chainstitch hemmer/hospitalist
- EEG on 02/04/2024 showed severe diffuse slowing with no seizures ing
- Diet as per EMERGENCY MANAGEMENT COORDINATOR - cleared for soft/bite-size with thin liquids
- Maintain Dobhoff tube as there is suspicion he will not consume enough calories for daily needs and may need to continue tube feeds in the interim until PO intake increases to normal
- ASA + high-intensity statin; goal LDL<70 (56 on 01/26/2024; of note, A1C: 5.4 on 01/26/2024)
- Patient weaned off of vasopressors earlier this morning
- Keep MAP>65
- Still on IVF - would continue with caution to avoid hypervolemia
- Continue with antifungals as per ID
- Currently on amphotericin B + flucytosine
- Given opacification seen in the left lower lobe on CXR, ceftriaxone started
- Sputum Cx collected --> follow up species
- Continue aspiration precautions
- Follow-up CSF culture from repeat LP on 02/03/2024 (NGTD)
- CSF cytopathology from 02/03/2024 shows rare budding yeast which are similar to prior CSF cytopathology on 01/28/2024. No overt evidence for neoplastic process
- Renally dose all medication/antifungals
- Trend UOP, I/O and sCr
- Monitor K with goal 3.5-5
- Nephrology on board, recs appreciated
- Maintain SpO2 >90-94%
- Replete electrolytes with K>4, Mg>2
- PT/OT/PM&R consult
- Maintain euglycemia with goal BG 140-180
- prn nebulized bronchodilators � patient currently not bronchospastic
- Incentive spirometer encouraged now that he is more awake and interacting
- DVT ppx: HSQ
Patient is stable for downgrade out of ICU to telemetry. Ornamental Metalwork Designer/Pulmonary service will now sign off. Thank you for allowing us to be involved in the care of this patient. Please reconsult if there are any additional questions/concerns, or if
patient's respiratory status deteriorates.
Total time spent today was 75 minutes for this encounter. Time includes reviewing laboratory test/imaging results, reviewing pertinent medical records, obtaining and reviewing medical history, performing an appropriate exam, ordering medications,
tests and procedures. Time also includes documentation of this encounter, coordinating patient care and communicating with other healthcare professionals. Total time does not include separately billed tests performed on this date of service.
Data:
CT Head 02/03/2024:
No acute intracranial abnormalities.
Findings compatible with diffuse cortical atrophy with nonspecific white matter changes
MRI brain 01/26/2024:
1. No MRI evidence for acute infarct or intracranial hemorrhage.
2. 4 mm chronic lacunar infarct in the inferior right basal ganglia.
3. Mild white matter leukoaraiosis in the frontal and parietal lobes.
4. Mild to moderate diffuse cerebral and cerebellar volume loss.
5. Mild paranasal sinus mucosal disease.
MRI Brain 02/04/2024:
There is a 6 mm focus of restricted diffusion within the left cerebral peduncle consistent with acute infarction.
There is mild atrophy with sequelae of mild small vessel ischemic disease, unchanged from prior.
FLAIR nonsuppression within the fourth ventricle and to a lesser extent the prepontine cistern which is likely artifactual in nature.
MRA Head/Neck 02/06/2024:
Limited by motion degradation. As far as visualized, flow signal intensity is seen throughout the cerebral arteries. No vessel occlusion. No aneurysm.
Plaque at the bilateral ICA origin, left greater than right. Less than 50% estimated luminal diameter reduction on the right. Approximately 50% luminal diameter reduction on the left.
Subjective Dataa
Subjective Data
Date of Service:
Date of Service: February 06, 2024
Chief Complaint: Ornamental Metalwork Designer Follow Up
Subjective:
Patient seen and evaluated this morning. Off Levophed since 8:30 AM today. BP 143/86, pulse rate 74, and saturating 97% on room air; Febrile overnight to 102 �F. He is following commands and is much more interactive today. He is answering
questions appropriately and is AAOx2. He does answer questions slowly with a delay/confused at times. He denies headache or chest pain, although he says he is short of breath.
Review of Systems
General: Other (Limited due to acute clinical status, but overall negative unless mentioned above)
Objective Data
Data Reviewed
Vital Signs / I&O / Oxygen:
Vital Signs
Temp Pulse Resp BP Pulse Ox
98.8 F 71 28 146/81 97
02/06/24 07:29 02/06/24 08:00 02/06/24 08:00 02/06/24 08:00 02/06/24 08:00
Intake and Output
02/05/24 02/06/24 02/07/24
06:59 06:59 06:59
Intake Total 3166 / 3278 2172.0 / 2244.5 72.5 / 72.5
Output Total 1575 / 1575 1250 / 1250
Balance 1591 / 1703 922.0 / 994.5 72.5 / 72.5
SaO2 97
Nasal Cannula flow liters per 2
minute
Physical Exam
General: Respiratory Distress (negative), Comfortable, Chills (negative) and Sweats (negative)
HEENT: Normocephalic and Anicteric
Cardiovascular: S1-S2 and Peripheral Edema (negative)
Respiratory: Clear, Wheeze (negative), Crackles (negative), Rhonchi (negative) and Non-Labored Respirations
GI: Soft, Non Distended, Non Tender and Normal Bowel Sounds
Neurology: Awake, Alert, Oriented (self and place), Tremors (negative), Other (+2 bilaterally and sluggish) and Other (Right-sided facial droop, feet dorsi-flexion bilaterally 5/5, loss claim clerk strength bilaterally: 3/5; not able to perform thorough
neurological exam as pt not able to perform all tasks given weakness and left-sided neglect)
Skin: Warm, Dry and Jaundice (negative)
Labs/Micro/Reports
Lab Data
02/06/24 04:51
02/06/24 04:51
Microbiology
02/04/24 04:26 Blood/Venous Blood Culture - Preliminary
No Growth in 48 hours- Final report to follow
02/05/24 11:34 Nose Nasal Screen MRSA (PCR) - Final
MRSA not detected - performed by PCR methodology.
02/05/24 12:22 Sputum Gram Stain - Preliminary
02/03/24 14:04 Blood/Venous Blood Culture - Preliminary
No Growth in 48 hours- Final report to follow
01/29/24 11:11 Blood/Venous Blood Culture - Final
Cryptococcus neoformans
01/29/24 11:11 Blood/Venous Gram Stain - Final
02/03/24 17:15 Csf CSF Culture - Preliminary
No Growth After 48 Hours
02/03/24 17:15 Csf Gram Stain - Preliminary
--- NOTE | 2024-02-06 08:53 | W.PN.ID1 ---
Date of Service
Date of Service: February 06, 2024
Today's Communication
plan at least 2 weeks of ampho + flucytosine from 01/27, then on 02/09 repeat LP and continue both medications, induction will be complete when repeat CSF culture is negative - would not switch early given high initial titer
switched to core Ts, fever via this route is define as over 101.0
pressors weaning off
continue ceftriaxone
stopped Benadryl after discussion with neurology
follow clinically
Assessment / Plan
Fever
- switched to core Ts, fever via this route is define as over 101.0
- leukocytosis resolved
- resp culture pending gram stain suggestive of usual resp fabio, CXR possible, mild infiltrate
- UA - negative
- blood cultures x2 in progress no growth to date
- 02/02 CSF culture remains no growth
- covid ag negative
- central fever (given actue stroke) and PIIRS on the differential as well (see below)
- follow clinically
Cryptococcal meningitis (immunocompetent patient)
- Confirmed on antigen testing of CSF 1:15,334; crypto ag of serum 1:3518
- blood cultures 01/28 budding yeast; 02/02 blood cultures x2 in progress no growth to date
- CSF 02/02 gram stain no organisms and no growth to date; however CSF glucose remains quite low, protein high, lymphocytosis ongoing: persistent infection vs PIIRS (post infectious inflammatory response syndrome); overall favor persistent infection
- follow MRI
- awaiting repeat crag on csf, beyond that do not plan to trend further
- continue flucytosine 1750 mg po BID - dose adjust PRN for renal function
- continue lipo ampho B 3 mg/kg daily (no need to adjust dose for renal impairment).
- daily mag levels, K, Ca, Na
- aggressive K repletion to 4.0+ PRN - reviewed with IM service
- preemptively started mag replacement - continue
- avoid nephrotoxic agents as feasible
- pretreatment with tylenol and PRN for rigors; stopped benadryl given neurology concern for sedation
- daily pretreatment with 500 ccs NS bolus in addition to maintenance fluids - reviewed with dr maria esther hauser 02/04
- daily assessment for signs and sxs of elevated intracranial pressure.
- plan at least 2 weeks of ampho + flucytosine from 01/27, then on 02/09 repeat LP , induction will be complete when repeat CSF culture is negative - would not switch early given high initial titer
- follow clinically
����������������������������������������������������������
Chief Complaint
-: Other (cryptococcal meningitis)
Subjective / Review of Systems
tmax 102 core overnight
norepi down to 1 mcg/min - was off for some periods overnight; phenylephrine off (was a switch)
awaiting additional imaging
no headache today
did not recall yesterdays
Vital Signs / Physical Exam
Vital Signs
Vital Signs
Temp Pulse Resp BP Pulse Ox
98.8 F 71 28 146/81 97
02/06/24 07:29 02/06/24 08:00 02/06/24 08:00 02/06/24 08:00 02/06/24 08:00
Physical Exam
Constitutional: No Acute Distress and Chronically Ill
Cardiovascular: Regular Rate and S1/S2; Negative Murmur or Rub
Pulmonary: Clear and Symmetric; Negative Wheezes or Rales
Gastrointestinal: Soft, Non Tender, Non Distended and Normal Bowel Sounds
Skin: Warm and Dry; Negative Rash or Jaundice
Neurological: Other (some word finding difficulty (cookies vs feet), following one step commands, moving all extremities)
Objective Data
Lab Data
Lab Results
02/06/24 04:51
02/06/24 04:51
ESR 6 mm/hour (0-20) 01/26/24 13:48
PT 14.7 Sec (11.4-14.6) H 01/28/24 10:25
INR 1.14 01/28/24 10:25
Estimated Creat Clear 37 ml/min 02/06/24 04:51
Total Bilirubin 1.2 mg/dl (0.2-1.3) 02/05/24 05:18
AST 22 U/L (17-59) 02/05/24 05:18
ALT 14 U/L (0-50) 02/05/24 05:18
Alkaline Phosphatase 54 U/L (38-126) 02/05/24 05:18
Most recent labs reviewed.
echo report reviewed - no evidence of infection, valve is trileaflet
Micro Results:
02/04/24 04:26 Blood Culture - Preliminary
Blood/Venous No Growth in 48 hours- Final report to follow
02/05/24 11:34 Nasal Screen MRSA (PCR) - Final
Nose MRSA not detected - performed by PCR methodology.
02/05/24 12:22 Respiratory Culture - Pending
Sputum Gram Stain - Preliminary
02/03/24 14:04 Blood Culture - Preliminary
Blood/Venous No Growth in 48 hours- Final report to follow
01/29/24 11:11 Blood Culture - Final
Blood/Venous Cryptococcus neoformans
Gram Stain - Final
02/03/24 17:15 CSF Culture - Preliminary
Csf No Growth After 48 Hours
Gram Stain - Preliminary
01/29/24 04:53 Blood Culture - Final
Blood/Venous No Growth - Final Report
01/28/24 15:35 Fungus Mold Identification - Final
Csf Cryptococcus neoformans
01/28/24 13:45 CSF Culture - Final
Csf Yeast
Gram Stain - Final
01/26/24 13:45 Acid Fast Bacilli Smear - Preliminary
Csf Acid Fast Bacilli Culture - Preliminary
01/28/24 13:45 Fungal Culture - Preliminary
Csf Yeast
01/25/24 19:50 Salmonella/Shigella Culture - Final
Feces/Stool No Salmonella, Shigella, Aeromonas or Plesiomonas species
isolated.
Campylobacter Culture - Final
No Campylobacter species isolated.
Shiga Toxin Test - Final
No E. coli Shiga Toxin 1 or 2 detected.
Stool Leukocytes - Final
01/28/24 13:45 Meningitis/Encephalitis Panel (PCR) - Final
Csf
Care Review
Plan reviewed with: Physician (Dr Garland mazariegos)
[2024-02-06] MEDS: LIPITOR 20 MG PO (08:58)
[2024-02-06] MEDS: LOW STRENGTH ASPIRIN 81 MG PO (08:58)
[2024-02-06] MEDS: KEPPRA 1000 MG IV (08:58)
[2024-02-06] MEDS: [UNRECOGNIZED DRUG - OTHER] 1750 MG TUBE ×2 (09:01→20:24)
--- NOTE | 2024-02-06 09:21 | W.PN.NEPH.PH ---
Today's Communication / Plan
-
IVF
Assessment/Plan
-
Assessment
Hyponatremia
Fungal meningitis
Hyperlipidemia
WAI
CVA
Plan:
maintain MAP > 65
follow BMP
follow Mg, on oral mag
continue antifungals
continue IVF flushes
add IVF today 1L until TF up to goal
for echo
additional K today
may benefit from beta blockade with PVCs
critical care time 31 minutes
-
-
Date of Service: February 06, 2024
CC / HPI / ROS
-
Chief Complaint:
hyponatremia
History of Present Illness:
Na stable
on lipid amphoB/flucytocine for fungal meningitis
on neosynephrine gtt for hypotension
Creatinine stable at 1.5
K low 3.4
PVCs on telemetry
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
Review of Systems:
answers questions appropriately
DHT in place, condom catheter
Labs
-
Labs:
WBC 10.5 10^3/uL (4.8-10.8) 02/06/24 04:51
RBC 3.82 10^6/uL (4.70-6.10) L 02/06/24 04:51
Hgb 12.4 g/dL (13.0-18.0) L 02/06/24 04:51
Hct 34.9 % (39.0-52.0) L 02/06/24 04:51
Plt Count 186 10^3/uL (130-400) 02/06/24 04:51
Sodium 138 mmol/L (135-145) 02/06/24 04:51
Potassium 3.4 mmol/L (3.5-5.1) L 02/06/24 04:51
Chloride 103 mmol/L (98-107) 02/06/24 04:51
Carbon Dioxide 25 mmol/L (22-30) 02/06/24 04:51
BUN 25 mg/dl (9-20) H 02/06/24 04:51
Creatinine 1.5 mg/dL (0.7-1.3) H 02/06/24 04:51
eGFR 46.77 02/06/24 04:51
Glucose 128 mg/dl (70-99) H 02/06/24 04:51
Calcium 9.3 mg/dl (8.4-10.2) 02/06/24 04:51
Albumin 3.3 g/dl (3.5-5.0) L 02/05/24 05:18
Physical Exam
-
Vital Signs:
Vital Signs
Temp Pulse Resp BP Pulse Ox
98.8 F 71 28 146/81 97
02/06/24 07:29 02/06/24 08:00 02/06/24 08:00 02/06/24 08:00 02/06/24 08:00
Cardiovascular:: Regular rate and rhythm
Respiratory:: Bilateral: Coarse
Lung Excursion:: Normal
Abdomen:: Nontender and Soft
Bowel Sounds:: Normal
Extremity Edema:: None: Bilateral:
[2024-02-06] MEDS: MAGNESIUM OXIDE 500 MG PO (09:38)
[2024-02-06] MEDS: NSS 1000 IV (10:08)
--- NOTE | 2024-02-06 10:23 | W.PN.NEURO.1 ---
Today's Communication / Plan
-
avoid further episodes of hypotension; goal SBP 120-140
Await MRA head and neck results
Discontinue Keppra 1g IV q12
Would if possible replace diphenhydramine with alternative to avoid sedation
Consider outpatient evaluation for reasoning to explain the patient developing an infection obtained by immunocompromised patients
Continue Amphotericin, appreciate ID assistance
Continue Flucytosine 25mg/kg.
Continue ASA 81mg daily and atorvastatin 20 mg daily based on LDL 55
Neuro Assessment/Plan
Assessment
78 yr. old male with h/o lightheadedness confusion and ataxia since November 2023. 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 Had worsening mental status on 02/02, then overnight on 02/03-02/04 developed
R sided weakness and neglect during an episode of hypotension. Blood pressure has been labile.
-MRI brain 02/04/24:
There is a 6 mm focus of restricted diffusion within the left cerebral peduncle consistent with acute infarction.
There is mild atrophy with sequelae of mild small vessel ischemic disease, unchanged from prior.
-repeat HCT done overnight after worsening of weakness, neglect: no acute findings
-EEG, 02/04/24: diffuse slowing, no seizure
Previous testing:
-MRI brain 01/26/24: No MRI evidence for acute infarct or intracranial hemorrhage. 4 mm chronic lacunar infarct in the inferior right basal ganglia. Mild white matter leukoaraiosis in the frontal and parietal lobes. Mild to moderate diffuse cerebral
and cerebellar volume loss. Mild paranasal sinus mucosal disease.
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 3.1 mm anterolisthesis of C4 on C5 secondary to severe left-sided facet joint arthrosis. Moderate-sized central disc herniation at C4/C5 causing mild
spinal cord compression and central canal stenosis. Mild spinal cord compression and central canal stenosis at C3/C4 and C6/C7 secondary to disc-osteophyte complexes. Severe bilateral neural foraminal narrowing at C6/C7. Severe left neural foraminal
narrowing at C4/C5. 3.3 mm anterolisthesis of C7 on T1. Severe calcific atherosclerotic plaque in the proximal left internal carotid artery. Multiple left-sided thyroid nodules.
-MRI Lumbar Spine 01/28/24: There is multilevel degenerative disc disease and facet arthropathy with superimposed endplate degenerative edema at L3-L4. There is resultant multilevel spinal canal or neuroforaminal narrowing most pronounced at L3-L4
L4-L5 where there is mild canal stenosis and mild/moderate neuroforaminal narrowing.
-EEG 01/28/24: Moderately abnormal study for age based on bursts of frontally predominant rhythmic lateralized delta activity with single episode of generalization, not clearly epileptiform. No seizures were recorded.
-repeat LP showed opening pressures of 13 cm of water.
1. 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
#2 acute ischemic stroke
Plan
avoid further episodes of hypotension; goal SBP 120-140
Await MRA head and neck results
Discontinue Keppra 1g IV q12
Would if possible replace diphenhydramine with alternative to avoid sedation
Consider outpatient evaluation for reasoning to explain the patient developing an infection obtained by immunocompromised patients
Continue Amphotericin, appreciate ID assistance
Continue Flucytosine 25mg/kg.
Continue ASA 81mg daily and atorvastatin 20 mg daily based on LDL 55
DVT prophylaxis.
Continue neurochecks, nihss
Will continue to follow pending results
Subjective/Objective
Subjective Data
Date of Service: February 06, 2024
Patient reports no current symptomatology of significance.
Objective Data
Vital Signs
Temp Pulse Resp BP Pulse Ox
37.1 C 71 28 146/81 97
02/06/24 07:29 02/06/24 08:00 02/06/24 08:00 02/06/24 08:00 02/06/24 08:00
Lab Results
02/06/24 04:51
02/06/24 04:51
PT 14.7 Sec (11.4-14.6) H 01/28/24 10:25
INR 1.14 01/28/24 10:25
Sodium 138 mmol/L (135-145) 02/06/24 04:51
Potassium 3.4 mmol/L (3.5-5.1) L 02/06/24 04:51
BUN 25 mg/dl (9-20) H 02/06/24 04:51
Glucose 128 mg/dl (70-99) H 02/06/24 04:51
Calcium 9.3 mg/dl (8.4-10.2) 02/06/24 04:51
LDL Cholesterol, Calc 55 mg/dl 02/06/24 04:51
Whole Bld Vitamin B1 212 nmol/L (70-180) H 01/26/24 10:04
Vitamin B12 439 pg/ml (239-931) 01/26/24 08:00
Patient Allergies
No Known Allergies Allergy (Verified 01/25/24 14:02)
Review of Systems
-
Unable to obtain full review of systems at this time due to: Lethargy
History Source: Patient
All other systems: Reviewed and negative
Physical Exam
-
General: No Apparent Distress and Appears Stated Age
Eyes: Round OU
HEENT: Anicteric and Moist Mucous Membranes
Neck: Full Range of Motion
Respiratory: No Dyspnea
Cardiac: No JVD
GI: Non-distended
Skin: Unremarkable
Extremities: No Clubbing, No Cyanosis and No Edema
Psych: Unable to Assess
Extended Neurological Exam
Mood & Affect: Mood Unremarkable and Affect Unremarkable
Attention Span & Concentration: Awake, Interactive, Closes Eyes after Stimulation (After approximately 2 seconds) and Other (Unable to perform most one-step requests); Negative Alert, Unresponsive to Verbal Stimuli or Unresponsive to Physical Stimuli
Memory: Able to Recall (Location, and that his son is nearby)
Tremor: Hand Tremor Absent and Head Tremor Absent
Involuntary Movement: None
Speech: Moderately Reduced Output
Cranial Nerve II: Left Eye: Pupillary Reactivity Unremarkable, Pupillary Size Unremarkable and Unable to Assess Visual De [place]
Cranial Nerve II: Right Eye: Pupillary Reactivity Unremarkable, Pupillary Size Unremarkable and Unable to Assess Visual De Leon
Cranial Nerves III, IV, : Extraocular Movement: Grossly Intact
Cranial Nerve VII: Facial Symmetry: Reduced (Right lower face compared with contralateral side)
Cranial Nerve VIII: Hearing: Unremarkable Hearing to Normal Conversational Volume
Pronator Drift: Unable to Assess
Touch Sensation: Unremarkable
Gait & Station: Unable to Assess
Data Reviewed
-
MRI Head: Report Reviewed and Image Reviewed
Labs: Report Reviewed
Reviewed with: Physician, Nurse and Family
Old Records: Summarized
Past History
Past History
ED Past Medical History: CVA (left ATMOSPHERIC PHYSICIST), HTN, Hypercholesterolemia, Hypothyroidism, Other (Branch retinal vein occlusion with macular edema OS, hypertensive retinopathy OU, diverticulosis, gastric polyps, thyroid nodules, colonic polyp, irritable
bowel disease, BPH) and Other (cryptococcal meningitis)
ED Past Surgical History: Appendectomy and Other (Right lobe thyroid resection)
Social History
Tobacco: Other
Alcohol: Other
Drug: None
Personal:
Living: with family
Employment: Other
Family History
Family History: Other (Reviewed and noncontributory)
Medications
-
Medications:
Generic Name Dose Route Start Last Admin
Trade Name Freq PRN Reason Stop Dose Admin
Acetaminophen 1,000 mg 01/29/24 19:00 02/05/24 15:22
Acetaminophen 500 Mg Tablet PO 02/26/24 18:59 Not Given
DAILY@1500 UMAIR
Protocol
Acetaminophen 1,000 mg 02/04/24 20:45 02/05/24 22:43
Acetaminophen (Oral Solution) 650 Mg/20.3 Ml Cup TUBE 03/03/24 20:44 1,000 mg
Q8HPRN PRN Administration
TRENT, mild pain, T >100.4F
Aspirin 81 mg 01/26/24 08:00 02/06/24 08:58
Aspirin 81 Mg Chewable Tablet PO 02/23/24 07:59 81 mg
DAILY UMAIR Administration
Atorvastatin Calcium 20 mg 01/26/24 08:00 02/06/24 08:58
Atorvastatin (Lipitor) 20 Mg Tablet PO 02/23/24 07:59 20 mg
DAILY UMAIR Administration
Ceftriaxone Sodium 2,000 mg 02/06/24 12:00
Ceftriaxone 2,000 Mg/20 Ml Vial IV
Q24H UMAIR
Diphenhydramine HCl 25 mg 01/29/24 14:56
Diphenhydramine Elixir (25 Mg/10 Ml) Cup TUBE 02/26/24 14:55
Q4HPRN PRN
AMPHOTERICIN INFUSION REACTION
Diphenhydramine HCl 25 mg 02/04/24 16:00 02/05/24 15:41
Diphenhydramine Elixir (25 Mg/10 Ml) Cup TUBE 03/03/24 15:59 25 mg
DAILY@1500 UMAIR Administration
Flucytosine 1,750 mg 02/04/24 22:00 02/06/24 09:01
Flucytosine (Non-Form) Suspension 50 Mg/Ml In Oral Syringe TUBE 02/14/24 21:59 1,750 mg
BID UMAIR Administration
Heparin Sodium 5,000 units 02/04/24 00:00 02/06/24 08:59
Heparin 5,000 Units/Ml 1 Ml Vial SC 03/03/24 00:00 5,000 units
Q8 UMAIR Administration
Amphotericin B 200 mg/ 150 mls @ 75 mls/hr 01/30/24 17:00 02/05/24 15:54
Dextrose IV 02/09/24 16:59 150 mls
DAILY@1600 UMAIR Administration
Dextrose 50 mls @ 600 mls/hr 02/04/24 16:00 02/05/24 18:02
D5w IV 03/05/24 15:59 50 mls
BID@1600,1805 UMAIR Administration
Phenylephrine HCl 50 mg in 250 mls @ 0 mls/hr 02/04/24 23:45 02/04/24 23:42
Jonatan-Synephrine IV 250 mls
PER PROTOCOL UMAIR Administration
Protocol
Per Protocol
Norepinephrine Bitartrate 4 mg in 250 mls @ 0 mls/hr 02/05/24 13:30 02/05/24 15:00
Levophed IV 250 mls
PER PROTOCOL UMAIR Administration
Protocol
Per Protocol
Sodium Chloride 500 mls @ 500 mls/hr 02/06/24 15:00
Nss IV
Q24H UMAIR
Sodium Chloride 1,000 mls @ 70 mls/hr 02/06/24 09:30 02/06/24 10:08
Nss IV 02/06/24 23:47 1,000 mls
.[id number] UMAIR Administration
Levetiracetam 1,000 mg 02/04/24 08:00 02/06/24 08:58
Levetiracetam (100 Mg/Ml) 500 Mg/5 Ml Vial IV 03/03/24 07:59 1,000 mg
Q12 UMAIR Administration
Magnesium Oxide 500 mg 01/29/24 08:00 02/06/24 09:38
Magnesium Oxide 500 Mg Tablet PO 02/26/24 07:59 500 mg
DAILY UMAIR Administration
Potassium Chloride 20 meq 02/06/24 22:00
Potassium Chloride 20 Meq Extended Release Tablet PO 02/06/24 22:01
ONCE@2200 ONE
Prochlorperazine Edisylate 5 mg 01/29/24 23:06 01/29/24 23:36
Prochlorperazine 10 Mg/2 Ml Vial IV 02/26/24 23:05 5 mg
Q6HPRN PRN Administration
n/v
Sodium Chloride 0 flush 01/28/24 18:00
Sodium Chloride 0.9% (Flush) Syringe IV 02/25/24 17:59
PER PROTOCOL UMAIR
Sterile Water 20 ml 02/06/24 12:00
Sterile Water For Injection 20 Ml Vial IV 03/05/24 11:59
Q24H UMAIR
--- NOTE | 2024-02-06 10:37 | PTOTSP ---
Dysphagia Re-evaluation
Patient presents with signs concerning for at least mild-moderate oral dysphagia and no signs of pharyngeal dysphagia or aspiration. Consider dysphagia diet below when patient awake/alert and with appropriate mentation. Consider continued non-oral
means as patient may not meet adequate nutrition/hydration via oral means and may have fluctuations in mentation/alertness per chart review.
Recommend:
1. IDDSI Level 6 Soft/Bite Sized, IDDSI Level 0 thin liquids and continue non-oral means
2. Medications - in puree
3. Strategies: PO only when awake/alert, 1:1 supervision/assistance, small single sips/bites, slow rate, liquid wash to assist with oral clearance, check for oral residue, oral care 3x daily
4. Dysphagia therapy at the acute care level. Will determine if/when further assessment warranted via video swallow study.
5. Speech/language/cognitive evaluation at the acute care level. Therapy warranted after D/C from acute care at this time.
--- NOTE | 2024-02-06 10:52 | CHAP ---
Mr. Juárez received Sacr[facility] Sick from [facility] on 02/05/24.
--- NOTE | 2024-02-06 10:53 | W.PN.HOSP.TC ---
Addendum entered and electronically signed by Brooklynn Bah MD 02/06/24 15:25:
I saw and evaluated the patient independently. I reviewed the resident�s note and agree with findings and plan as documented by Dr. Sherwood.
GENERAL: well developed, well nourished, male in no apparent distress
HEENT: NC/AT--O2 requirements-small bore feeding tube in place
HEART: regular rate and rhythm, +S1, +S2, JACK at right sternal border noted
LUNGS : clear to auscultation bilaterally
ABDOM: soft, nontender, nondistended, + bowel sounds
EXT: no cyanosis, clubbing, or edema
NEUROLOGIC: unable to follow commands--minimal speech
Acute change in mental status with dysarthria--rapid response and stroke alert called 02/03/24--pt moved to ICU--loaded with Keppra--apprec neuro--EEG without seizure activity---did have STAT LP with opening pressure 13 so not increased CSF
production/elevated pressures--MRI showed 6mm acute stroke--appreciate neurology--continuing rest of stroke workup--echocardiogram without signs of vegetations--MRA of the head and neck without hemodynamically significant stenosis--off pressors, BP
good
acute ataxia due to Cryptococcal meningitis with positive blood cultures for same (Cryptococcal fungemia), repeat blood cultures negative--initial MRI brain negative, CT scan cervical spine with severe arthritis--due to concern for possible normal
pressure hydrocephalus, LP was done which was positive for Cryptococcus--pt without risk factors (not HIV, no cancer, no immunosuppression, no biologics)--truly unknown reason why pt has this--apprec ID--cont liposomal amphotericin B, follow blood
cultures as they are positive too---Flucytosine started but stopped due to WAI and restarted 02/04/24--liposomal amphotericin B is known to reduce potassium, follow and replete
WAI --creat peaked at 2.4--down to 1.5--cont IVF--apprec nephrology
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
Hyperlipidemia--cont lipitor
Generalized weakness-- PT/OT--now with acute stroke, will need re-eval by PT/OT/speech and consult PM&R
Thyroid nodule--followed by endocrine but apparently discharged by them--biopsy in 2022 was negative--TSH WNL
DVT prophylaxis
Code status --Full code
ok to transfer to tele
Original Note:
Today's Communication/Plan
-
f/u with nephrology, neurology, infectious disease
trend CMP, CBC, electrolytes
f/u with dietary jd edwards consultant
Assessment / Plan
Assessment / Plan
Acute change in mental status with dysarthria:
- On 02/02- patient had a stroke alert called for weakness in left arm, dysphagia, and dysarthria
- Emergency CT scan (02/02)- showed negative findings for stroke
- On physical exam (02/04) does not respond to verbal stimulus, not oriented to time/place, strength is normal, reflexes are normal, negative pronator drift
- He had a LP with opening pressure performed and the opening pressure was 13 compared to 25 on the previous lumbar puncture.
- CSF cryptococcal antigen test showed wbc of 43, glucose <20, protein 189 which is consistent with infection in the csf.
- ID, neurology, nephrology, flexo press operator are on board
- Neurology added Keppra 1g IV q12 (02/03)- seizure prophylaxes
- MRA head neck ordered by neurology (02/03)- still pending
- Hematology Nurse recommended q1hr neurochecks with NIHSS q shift, Renally dose all medication/antifungals, Maintain SpO2 >90-94%, Replete electrolytes with K>4, Mg>2, Maintain euglycemia with goal BG 140-180
- Head CT (02/04)- shows no new intracranial abnormality
- Placed dietary consult (02/05)- continue feeding tube Jevity 1.5, patient can also start IDDSI level 6 soft bite diet and thin liquids, will not be able to meet nutritional needs on oral intake alone
- On Levophed as needed to maintain Systolic blood pressure between 120-140.
- Neurology (02/05)- continue neurochecks, nihss
Hypokalemia:
- Repleted IV potassium elixir 40 (02/05) -potassium level is 3.4
- Nephrology recommended that he takes additional potassium chloride 20 tina once
Heart murmur:
- A murmur is heard over the aortic area on auscultation.
- echocardiogram normal (02/04)- shows no vegetations and a LVEF of 65-70%
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
- CT head on 01/17- no acute intracranial abnormalities
- Brain MRI 01/25- no evidence of acute infarct/bleed
- EEG ( 01/27)- no evidence of seizures recorded
- Continue Pt/OT - patients balance/ coordination is off
- Lumbar puncture showed opening pressure- 25, 20 cc of CSF collected, WBC count of 45, Lymphocytes 5%, granulocyte 1%, macrophages 44%, glucose <20, total protein 136
- continue on Amphotericin B ( 6th day), continue to monitor patient in the hospital for duration of treatment to monitor for side effect
- Flucytosine was stopped today (02/01)
- send out CSF test shows growth of Cryptococcus antigen (01/30)
- ID consulted (01/30)- advised to continue the current dosage of lipo amphotericin 3 mg/kg, and c/w flucytosine 25mg/kg/dose.
- Due to side effect of medication observe the daily mag, K, Ca, Na, CBC, CMP
- Blood culture (02/01)- gram stain of blood culture reveals budding yeast
- Renal u/s (02/01)- showed renal cysts and prostatomegaly extending into the bladder base
- Repeat blood cultures (02/04)- no growth seen
Hyponatremia
- His creatinine level is 1.5 (02/05)- trending down, 100 cc/hr normal saline volume bolus given along with medication
- Na level 132- (02/04) morning time, continue on sodium chloride intravenous fluids
- Continue [facility] that nephrology ordered
- Nephrology consulted (02/01) - advised follow up BMP, holding off on IV fluids, and doing intermittent bladder scans. If
blood pressure drops we can order a volume bolus as needed, will monitor along with ID
Thyroid nodule
-Patient had been discharged by endocrinology
-Nodule biopsy in 23 was negative for any malignancy
-TSH/FT4 WNL
Hyperlipidemia
-continue on atorvastatin
Generalized weakness
- no evidence of current infection
-chest xray- normal
- UA is normal
-COVID-negative
Anticipated Discharge: 24 - 48 hours
Subjective/Interval History
-
Date of Service: February 06, 2024
Patient has no overnight complaints/ acute medical issues.
Objective Data
-
Labs:
Laboratory Results
02/06/24
04:51
WBC 10.5
Hgb 12.4 L
Hct 34.9 L
Plt Count 186
Sodium 138
Potassium 3.4 L
Chloride 103
Carbon Dioxide 25
BUN 25 H
Creatinine 1.5 H
Glucose 128 H
Calcium 9.3
Vital Signs:
Vital Signs
Temp Pulse Resp BP Pulse Ox
98.8 F 71 28 146/81 97
02/06/24 07:29 02/06/24 08:00 02/06/24 08:00 02/06/24 08:00 02/06/24 08:00
I&O
02/05/24 02/06/24 02/07/24
06:59 06:59 06:59
Intake Total 3166 / 3278 2172.0 / 2244.5 351.3 / 351.3
Output Total 1575 / 1575 1250 / 1250
Balance 1591 / 1703 922.0 / 994.5 351.3 / 351.3
Review of Systems
-
History Source: Patient
All other systems: Reviewed and negative
Physical Exam
-
General: Well Developed and Well Nourished
Respiratory: Clear to Auscultation
Cardiac: S1/S2
GI: Soft, Nontender and Nondistended
Musculoskeletal: No Clubbing, No Cyanosis and No Edema
Skin: Warm and Dry
Neuro: Awake, Alert, Central Nerve's Intact, No Sensory Deficits and Other (Dysarthria, strength in upper b/l extremities 3/5 )
Psych: Calm
Data Reviewed
-
Labs: Labs Reviewed by me and Discussed with Physician
[2024-02-06] MEDS: ROCEPHIN 2000 MG IV (12:20)
[2024-02-06] MEDS: STERILE WATER FOR INJECTION 20 ML IV (12:21)
--- NOTE | 2024-02-06 14:06 | CM ---
CM following re: discharge planning.
Reviewed pt's chart, met with pt. Per Rounds meeting, pt is alert, talkative, MRI today, PT/OT on hold. Neurology following. Continue supportive care.
Awaiting for updated PT/OT evaluations and recommendations.
Referral to [facility] noted. [facility] director following.
D/C plan: uncertain at this time and will depend on pt's progress.
CM will follow with discharge plan updates as hospitalization progresses.
[2024-02-06 14:30] LABS: C.neoformans Antigen Positive (Negative)
[2024-02-06] MEDS: NSS 500 IV (14:58)
[2024-02-06] MEDS: TYLENOL 1000 MG PO (14:59)
[2024-02-06] MEDS: AMBISOME 150 MG IV (16:02)
[2024-02-06] MEDS: D5W 50 IV ×2 (16:02→17:59)
--- NOTE | 2024-02-06 18:36 | PTCARENOTE ---
awaiting tele bed. family remains bedside. initially refused dinner then ate better, still with poor appetite. resting, smiling, brighter this last few hours, conversant.
--- NOTE | 2024-02-06 20:00 | PTCARENOTE ---
On assessment pt AAOx3, wax/wean per dayshift and MD is aware, low grade temps, rigors noted at times, SB/SR, RUE PICC, lungs clear, R nare dobhoff at 75cm, tube feeds started 02/04, incontinent of B/B, condom cath applied, skin intact, bed alarm on,
call andrews in reach.
[2024-02-06] MEDS: KCL 20 MEQ PO (20:24)
[2024-02-06] MEDS: HEPARIN SC ×2 (23:36→23:45)
[2024-02-07] VITALS (7 sets, daily range): BP systolic 111–152; BP diastolic 61–84; PULSE 67–78; BMI 20.8
--- NOTE | 2024-02-07 04:00 | PTCARENOTE ---
pt tx to 2N via bed with all belongings, report and NIH handoff given to 2N RN.
--- NOTE | 2024-02-07 04:32 | PTCARENOTE ---
02/06 031- patient transferred from ICU via bed w/ belongings. Telemetry order> SR w/ PVCs on monitor, T99.3, HR 60-70s, BP 152/84, pox 96% room air. No c/o pain. R dual PICC w/ good blood return. AAOx2 (time) NIHSS completed w/ handoff RN- refer to
worklist. Bed alarm in place.
Rt nare Dobhoff capped. Per previous RN, TF stopped at midnight, order entered by hospitalist for completion. 02/05 Bullet Maker report states to continue feeds once patient's oral intake increases. Per documentation, pt dinner intake 20%. On 02/05,
speech cleared patient for IDDS16, thin liquids, w/ supervision, aspiration precautions. Discussed with House PHYSICAL THERAPIST CENTER MANAGER. No new orders at this time. Patient oriented to room, call andrews within reach.
[2024-02-07 06:43] LABS: Hematocrit 34.8 % (39.0-52.0); Hemoglobin 12.6 g/dL (13.0-18.0); Mean Corp Hgb Conc. 36.2 g/dL (33.0-37.0); Mean Corpuscular Hgb 32.7 pg (27.0-31.0); Mean Corpuscular Volume 90.4 fL (80.0-94.0); Mean Platelet Volume 9.2 fL (7.4-10.4); Platelet Count 185 10^3/uL (130-400); Red Blood Cell Count 3.85 10^6/uL (4.70-6.10); White Blood Cell Count 9.4 10^3/uL (4.8-10.8)
[2024-02-07 07:05] LABS: ALT (SGPT) 16 U/L (0-50); AST (SGOT) 22 U/L (17-59); Alkaline Phosphatase 69 U/L (38-126); Blood Urea Nitrogen 20 mg/dl (9-20); Calcium 9.5 mg/dl (8.4-10.2); Carbon Dioxide 29 mmol/L (22-30); Chloride 100 mmol/L (98-107); Estimated Creatinine Clearance 47 ml/min; Glucose 104 mg/dl (70-99); Magnesium 1.4 mg/dl (1.6-2.3); Phosphorus 3.6 mg/dl (2.5-4.5); Potassium 3.3 mmol/L (3.5-5.1); Sodium 138 mmol/L (135-145); Total Bilirubin 0.6 mg/dl (0.2-1.3); Total Protein 5.3 g/dl (6.3-8.2); eGFR > 60.00
[2024-02-07] MEDS: MAGNESIUM OXIDE 500 MG PO ×2 (07:39→20:36)
[2024-02-07] MEDS: LIPITOR 20 MG PO (07:39)
[2024-02-07] MEDS: HEPARIN 5000 UNITS SC ×3 (07:39→23:35)
[2024-02-07] MEDS: LOW STRENGTH ASPIRIN 81 MG PO (07:39)
[2024-02-07] MEDS: [UNRECOGNIZED DRUG - OTHER] 1750 MG TUBE ×4 (07:39→22:03)
--- NOTE | 2024-02-07 09:08 | W.PN.ID1 ---
Date of Service
Date of Service: February 07, 2024
Today's Communication
very pleased with improved renal function
recommend aggressive K repletion to 4.0+ PRN
plan at least 2 weeks of ampho + flucytosine from 01/27, if 02/02 CSF remains negative may not require repeat LP, if it becomes positive repeat LP saturday, induction will be complete when repeat CSF culture is negative - would not switch early given high
initial titer
10-20% of patients with crypto meningitis are not known to be immunosuppressed - though often elderly
Assessment / Plan
Fever - resolved
- resp culture - usual resp fabio, CXR possible, mild infiltrate
- plan 3 day course of ceftriaxone - today is final day
- blood cultures x2 in progress no growth to date
- 02/02 CSF culture remains no growth
- central fever (given acute stroke) on the differential
- follow clinically
Cryptococcal meningitis (immunocompetent patient)
- 10-20% of cases are in immunocompetent (though usually elderly) individuals; will check immunoglobulins
- Confirmed on antigen testing of CSF 1:15,334; crypto ag of serum 1:3518
- blood cultures 01/28 budding yeast; 02/02 blood cultures x2 in progress no growth to date
- CSF 02/02 gram stain no organisms and no growth to date; however CSF glucose remains quite low, protein high, lymphocytosis ongoing: persistent infection vs PIIRS (post infectious inflammatory response syndrome); overall favor persistent infection
- follow MRI
- awaiting repeat crag on csf, beyond that do not plan to trend further
- continue flucytosine 1750 mg po increased to QID
- continue lipo ampho B 3 mg/kg daily (no need to adjust dose for renal impairment).
- daily mag levels, K, Ca, Na
- continue aggressive K repletion to 4.0+ PRN
- mag dose increased - im in agreement
- avoid nephrotoxic agents as feasible
- pretreatment with tylenol and PRN for rigors
- daily pretreatment with 500 ccs NS bolus in addition to maintenance fluids
- daily assessment for signs and sxs of elevated intracranial pressure.
- plan at least 2 weeks of ampho + flucytosine from 01/27, if 02/02 CSF remains negative may not require repeat LP, if it becomes positive repeat LP saturday, induction will be complete when repeat CSF culture is negative - would not switch early given
high initial titer
-
- follow clinically
����������������������������������������������������������
Chief Complaint
-: Other (cryptococcal meningitis)
Subjective / Review of Systems
afebrile
bp stable
Vital Signs / Physical Exam
Vital Signs
Vital Signs
Temp Pulse Resp BP Pulse Ox
99.3 F 75 16 152/84 96
02/07/24 03:36 02/07/24 03:36 02/07/24 03:36 02/07/24 03:36 02/07/24 04:13
Physical Exam
Constitutional: No Acute Distress
Cardiovascular: Regular Rate and S1/S2; Negative Murmur or Rub
Pulmonary: Clear and Symmetric; Negative Wheezes or Rales
Gastrointestinal: Soft, Non Tender, Non Distended and Normal Bowel Sounds
Skin: Warm and Dry; Negative Rash or Jaundice
Neurological: Negative Awake
Objective Data
Lab Data
Lab Results
02/07/24 06:20
02/07/24 06:20
ESR 6 mm/hour (0-20) 01/26/24 13:48
PT 14.7 Sec (11.4-14.6) H 01/28/24 10:25
INR 1.14 01/28/24 10:25
Estimated Creat Clear 47 ml/min 02/07/24 06:20
Total Bilirubin 0.6 mg/dl (0.2-1.3) 02/07/24 06:20
AST 22 U/L (17-59) 02/07/24 06:20
ALT 16 U/L (0-50) 02/07/24 06:20
Alkaline Phosphatase 69 U/L (38-126) 02/07/24 06:20
Most recent labs reviewed.
cr from 1.5 to 1.2
Micro Results:
02/04/24 04:26 Blood Culture - Preliminary
Blood/Venous No Growth in 72 hours- Final report to follow
02/03/24 14:04 Blood Culture - Preliminary
Blood/Venous No Growth in 72 hours- Final report to follow
02/03/24 17:15 CSF Culture - Preliminary
Csf No Growth After 72 Hours
Gram Stain - Preliminary
02/05/24 12:22 Respiratory Culture - Preliminary
Sputum Usual Respiratory Fabio
Gram Stain - Preliminary
02/05/24 11:34 Nasal Screen MRSA (PCR) - Final
Nose MRSA not detected - performed by PCR methodology.
01/29/24 11:11 Blood Culture - Final
Blood/Venous Cryptococcus neoformans
Gram Stain - Final
01/29/24 04:53 Blood Culture - Final
Blood/Venous No Growth - Final Report
01/28/24 15:35 Fungus Mold Identification - Final
Csf Cryptococcus neoformans
01/28/24 13:45 CSF Culture - Final
Csf Yeast
Gram Stain - Final
01/26/24 13:45 Acid Fast Bacilli Smear - Preliminary
Csf Acid Fast Bacilli Culture - Preliminary
01/28/24 13:45 Fungal Culture - Preliminary
Csf Yeast
01/25/24 19:50 Salmonella/Shigella Culture - Final
Feces/Stool No Salmonella, Shigella, Aeromonas or Plesiomonas species
isolated.
Campylobacter Culture - Final
No Campylobacter species isolated.
Shiga Toxin Test - Final
No E. coli Shiga Toxin 1 or 2 detected.
Stool Leukocytes - Final
01/28/24 13:45 Meningitis/Encephalitis Panel (PCR) - Final
Csf
--- NOTE | 2024-02-07 09:38 | W.PN.NEURO.1 ---
Today's Communication / Plan
-
avoid further episodes of hypotension; goal SBP 120-140
Consider outpatient evaluation for reasoning to explain the patient developing an infection obtained by immunocompromised patients
Continue Amphotericin, appreciate ID assistance
Continue Flucytosine 25mg/kg.
Continue ASA 81mg daily and atorvastatin 20 mg daily based on LDL 55
Neuro Assessment/Plan
Assessment
78 yr. old male with h/o lightheadedness confusion and ataxia since November 2023. 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 Had worsening mental status on 02/02, then overnight on 02/03-02/04 developed
R sided weakness and neglect during an episode of hypotension. Blood pressure has been labile.
-MRI brain 01/26/24: No MRI evidence for acute infarct or intracranial hemorrhage. 4 mm chronic lacunar infarct in the inferior right basal ganglia. Mild white matter leukoaraiosis in the frontal and parietal lobes. Mild to moderate diffuse cerebral
and cerebellar volume loss. Mild paranasal sinus mucosal disease.
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 3.1 mm anterolisthesis of C4 on C5 secondary to severe left-sided facet joint arthrosis. Moderate-sized central disc herniation at C4/C5 causing mild
spinal cord compression and central canal stenosis. Mild spinal cord compression and central canal stenosis at C3/C4 and C6/C7 secondary to disc-osteophyte complexes. Severe bilateral neural foraminal narrowing at C6/C7. Severe left neural foraminal
narrowing at C4/C5. 3.3 mm anterolisthesis of C7 on T1. Severe calcific atherosclerotic plaque in the proximal left internal carotid artery. Multiple left-sided thyroid nodules.
-MRI Lumbar Spine 01/28/24: There is multilevel degenerative disc disease and facet arthropathy with superimposed endplate degenerative edema at L3-L4. There is resultant multilevel spinal canal or neuroforaminal narrowing most pronounced at L3-L4
L4-L5 where there is mild canal stenosis and mild/moderate neuroforaminal narrowing.
-EEG 01/28/24: Moderately abnormal study for age based on bursts of frontally predominant rhythmic lateralized delta activity with single episode of generalization, not clearly epileptiform. No seizures were recorded.
-repeat LP showed opening pressures of 13 cm of water.
-MRI brain 02/04/24:
There is a 6 mm focus of restricted diffusion within the left cerebral peduncle consistent with acute infarction.
There is mild atrophy with sequelae of mild small vessel ischemic disease, unchanged from prior.
-repeat HCT done overnight after worsening of weakness, neglect: no acute findings
-EEG, 02/04/24: diffuse slowing, no seizure
MRA head and neck results showed no significant intracranial stenosis
Discontinued Keppra 1g IV q12
1. 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
#2 acute ischemic stroke
Plan
avoid further episodes of hypotension; goal SBP 120-140
Consider outpatient evaluation for reasoning to explain the patient developing an infection obtained by immunocompromised patients
Continue Amphotericin, appreciate ID assistance
Continue Flucytosine 25mg/kg.
Continue ASA 81mg daily and atorvastatin 20 mg daily based on LDL 55
DVT prophylaxis.
Continue neurochecks, nihss
Will continue to follow pending results
Subjective/Objective
Subjective Data
Date of Service: February 07, 2024
No new changes.
Objective Data
Vital Signs
Temp Pulse Resp BP Pulse Ox
37.6 C 72 16 122/64 93
02/07/24 07:20 02/07/24 07:20 02/07/24 07:20 02/07/24 07:20 02/07/24 07:20
Lab Results
02/07/24 06:20
02/07/24 06:20
PT 14.7 Sec (11.4-14.6) H 01/28/24 10:25
INR 1.14 01/28/24 10:25
Sodium 138 mmol/L (135-145) 02/07/24 06:20
Potassium 3.3 mmol/L (3.5-5.1) L 02/07/24 06:20
BUN 20 mg/dl (9-20) 02/07/24 06:20
Glucose 104 mg/dl (70-99) H 02/07/24 06:20
Calcium 9.5 mg/dl (8.4-10.2) 02/07/24 06:20
Phosphorus 3.6 mg/dl (2.5-4.5) 02/07/24 06:20
LDL Cholesterol, Calc 55 mg/dl 02/06/24 04:51
Whole Bld Vitamin B1 212 nmol/L (70-180) H 01/26/24 10:04
Vitamin B12 439 pg/ml (239-931) 01/26/24 08:00
Patient Allergies
No Known Allergies Allergy (Verified 01/25/24 14:02)
Review of Systems
-
Unable to obtain full review of systems at this time due to: Lethargy
History Source: Patient and Family
All other systems: Reviewed and negative
Physical Exam
-
General: No Apparent Distress and Appears Stated Age
Eyes: Round OU
HEENT: Anicteric and Moist Mucous Membranes
Neck: Full Range of Motion
Respiratory: No Dyspnea
Cardiac: No JVD
GI: Non-distended
Skin: Unremarkable
Extremities: No Clubbing, No Cyanosis and No Edema
Psych: Unable to Assess
Extended Neurological Exam
Mood & Affect: Mood Unremarkable and Affect Unremarkable
Attention Span & Concentration: Awake, Interactive and Other (Unable to perform most one-step requests); Negative Alert
Memory: Unable to Recall Personal History
Tremor: Hand Tremor Absent and Head Tremor Absent
Involuntary Movement: None
Speech: Severely Reduced Output
Cranial Nerve II: Left Eye: Pupillary Size Unremarkable and Unable to Assess Visual De [place]
Cranial Nerve II: Right Eye: Pupillary Size Unremarkable and Unable to Assess Visual De Leon
Cranial Nerves III, IV, : Extraocular Movement: Grossly Intact
Cranial Nerve VII: Facial Symmetry: Reduced (Right lower face compared with contralateral side)
Cranial Nerve VIII: Hearing: Unremarkable Hearing to Normal Conversational Volume
Pronator Drift: Unable to Assess
Cold Sensation: Unable to Assess
Vibration Sensation: Unable to Assess
Gait & Station: Unable to Assess
Data Reviewed
-
MRI Head: Report Reviewed
Labs: Report Reviewed
Reviewed with: Nurse Practioner, Patient and Family
Old Records: Summarized
[2024-02-07] MEDS: KCL 40 MEQ PO (09:42)
--- NOTE | 2024-02-07 10:33 | W.PN.NEPH.PH ---
Addendum entered and electronically signed by Radha Bynum MD 02/07/24 10:46:
LR has interaction with rocephin hence change to NS
Original Note:
Today's Communication / Plan
-
LR IVF, replace k and mg
Assessment/Plan
-
Assessment
Hyponatremia
Fungal meningitis
Hyperlipidemia
WAI
CVA
Plan:
improving renal function cr down to 1.2
PO intake is less, likely start IVF LR
NS bolus with Amphotericin
BP stable
replace k and mg, phos is normal
likely schedule kcl and increase mg
continue antifungals per ID
continue IVF flushes
echo normal EF, mod
may benefit from beta blockade with PVCs-fere to primary
d/w son at bedside
d/w nursing
-
-
Date of Service: February 07, 2024
CC / HPI / ROS
-
Chief Complaint:
hyponatremia
History of Present Illness:
Na stable
on lipid amphoB/flucytocine for fungal meningitis
BP stable off pressor
Creatinine better at 1.2
K low 3.3, mg 1.4
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
Review of Systems:
DHT in place, condom catheter
no complaints but sporadic communication
no n/v. had cough when drinking fluids fast
Labs
-
Labs:
WBC 9.4 10^3/uL (4.8-10.8) 02/07/24 06:20
RBC 3.85 10^6/uL (4.70-6.10) L 02/07/24 06:20
Hgb 12.6 g/dL (13.0-18.0) L 02/07/24 06:20
Hct 34.8 % (39.0-52.0) L 02/07/24 06:20
Plt Count 185 10^3/uL (130-400) 02/07/24 06:20
Sodium 138 mmol/L (135-145) 02/07/24 06:20
Potassium 3.3 mmol/L (3.5-5.1) L 02/07/24 06:20
Chloride 100 mmol/L (98-107) 02/07/24 06:20
Carbon Dioxide 29 mmol/L (22-30) 02/07/24 06:20
BUN 20 mg/dl (9-20) 02/07/24 06:20
Creatinine 1.2 mg/dL (0.7-1.3) 02/07/24 06:20
eGFR > 60.00 02/07/24 06:20
Glucose 104 mg/dl (70-99) H 02/07/24 06:20
Calcium 9.5 mg/dl (8.4-10.2) 02/07/24 06:20
Phosphorus 3.6 mg/dl (2.5-4.5) 02/07/24 06:20
Albumin 3.0 g/dl (3.5-5.0) L 02/07/24 06:20
Physical Exam
-
Vital Signs:
Vital Signs
Temp Pulse Resp BP Pulse Ox
99.7 F 72 16 122/64 93
02/07/24 07:20 02/07/24 07:20 02/07/24 07:20 02/07/24 07:20 02/07/24 07:20
Cardiovascular:: Regular rate and rhythm (murmur)
Respiratory:: Bilateral: CTA
Lung Excursion:: Normal
Abdomen:: Nontender and Soft
Extremity Edema:: None: Bilateral:
Coughlin Catheter: No
[2024-02-07] MEDS: MAGNESIUM SULFATE 102 GRAMS IV (11:04)
[2024-02-07] MEDS: NSS 1000 IV (11:04)
[2024-02-07] MEDS: ROCEPHIN 2000 MG IV (12:30)
[2024-02-07] MEDS: STERILE WATER FOR INJECTION 20 ML IV (12:31)
[2024-02-07] MEDS: TYLENOL 1000 MG PO (15:07)
[2024-02-07] MEDS: NSS 500 IV (15:08)
[2024-02-07] MEDS: D5W 50 IV ×2 (16:10→18:10)
[2024-02-07] MEDS: AMBISOME 150 MG IV (16:11)
--- NOTE | 2024-02-07 16:27 | W.PN.HOSP.TC ---
Addendum entered and electronically signed by Brooklynn Bah MD 02/07/24 16:58:
I saw and evaluated the patient independently. I reviewed the resident�s note and agree with findings and plan as documented by Dr. Tabares.
GENERAL: well developed, well nourished, male in no apparent distress
HEENT: NC/AT--O2 requirements-small bore feeding tube in place
HEART: regular rate and rhythm, +S1, +S2, JACK at right sternal border noted
LUNGS : clear to auscultation bilaterally
ABDOM: soft, nontender, nondistended, + bowel sounds
EXT: no cyanosis, clubbing, or edema
NEUROLOGIC: unable to follow commands--minimal speech--sleepy
Acute change in mental status with dysarthria--rapid response and stroke alert called 02/03/24--pt moved to ICU--loaded with Ubitexxppra--apprec neuro--EEG without seizure activity---did have STAT LP with opening pressure 13 so not increased CSF
production/elevated pressures--MRI showed 6mm acute stroke--appreciate neurology--continuing rest of stroke workup--echocardiogram without signs of vegetations--MRA of the head and neck without hemodynamically significant stenosis--off pressors, BP
good
acute ataxia due to Cryptococcal meningitis with positive blood cultures for same (Cryptococcal fungemia), repeat blood cultures negative--initial MRI brain negative, CT scan cervical spine with severe arthritis--due to concern for possible normal
pressure hydrocephalus, LP was done which was positive for Cryptococcus--pt without risk factors (not HIV, no cancer, no immunosuppression, no biologics)--truly unknown reason why pt has this--apprec ID--cont liposomal amphotericin B, follow blood
cultures as they are positive too---Flucytosine started but stopped due to WAI and restarted 02/04/24--liposomal amphotericin B is known to reduce potassium, follow and replete--plan to keep antifungals until Saturday and do repeat LP at that time
WAI --creat peaked at 2.4--down to 1.2--cont IVF--apprec nephrology
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
Hyperlipidemia--cont lipitor
Generalized weakness-- PT/OT--now with acute stroke, will need re-eval by PT/OT/speech and consult PM&R
Thyroid nodule--followed by endocrine but apparently discharged by them--biopsy in 2022 was negative--TSH WNL
DVT prophylaxis
Code status --Full code
will need PT/OT/physiatry/speech evals
Original Note:
Today's Communication/Plan
-
IV fluids changed to normal saline from RL.
Continue Amphotericin, flucytosine.
Continue aspirin, atorvastatin.
Potassium, magnesium repleted
Assessment / Plan
Assessment / Plan
#Acute change in mental status with dysarthria:
- On 02/02- patient had a stroke alert called for weakness in left arm, dysphagia, and dysarthria
- Emergency CT scan (02/02)- showed negative findings for stroke
- On physical exam (02/04) does not respond to verbal stimulus, not oriented to time/place, strength is normal, reflexes are normal, negative pronator drift
- He had a LP with opening pressure performed and the opening pressure was 13 compared to 25 on the previous lumbar puncture.
- CSF cryptococcal antigen test showed wbc of 43, glucose <20, protein 189 which is consistent with infection in the csf.
- ID, neurology, nephrology, mobile mechanic are on board
- Neurology added Keppra 1g IV q12 (02/03)- seizure prophylaxes
- MRA head neck ordered by neurology (02/03)- still pending
- Home Office Claims Examiner recommended q1hr neurochecks with NIHSS q shift, Renally dose all medication/antifungals, Maintain SpO2 >90-94%, Replete electrolytes with K>4, Mg>2, Maintain euglycemia with goal BG 140-180
- Head CT (02/04)- shows no new intracranial abnormality
- Placed dietary consult (02/05)- continue feeding tube Jevity 1.5, patient can also start IDDSI level 6 soft bite diet and thin liquids, will not be able to meet nutritional needs on oral intake alone
- On Levophed as needed to maintain Systolic blood pressure between 120-140.
- Neurology (02/05)- continue neurochecks, nihss
Benadryl discontinued
Physiatry consult
MRA head -no vessel occlusion, no aneurysm
MRA neck�Plaque at the bilateral ICA origin, left greater than right. Less than 50% estimated luminal diameter reduction on the right. Approximately 50% luminal diameter reduction on the left
#WAI on CKD
BUN, creatinine improving.
-Replete potassium as needed
#Heart murmur:
- A murmur is heard over the aortic area on auscultation.
- echocardiogram normal (02/04)- shows no vegetations and a LVEF of 65-70%
#Fungal Meningitis - possible cryptococcal
Continue Amphotericin, flucytosine through 02/10/2024. Repeat lumbar puncture on 02/10/2024 for clearance.
Replete potassium, magnesium as needed.
- CT head on 01/17- no acute intracranial abnormalities
- Brain MRI 01/25- no evidence of acute infarct/bleed
- EEG ( 01/27)- no evidence of seizures recorded
- Continue Pt/OT - patients balance/ coordination is off
- Lumbar puncture showed opening pressure- 25, 20 cc of CSF collected, WBC count of 45, Lymphocytes 5%, granulocyte 1%, macrophages 44%, glucose <20, total protein 136
- continue on Amphotericin B ( 6th day), continue to monitor patient in the hospital for duration of treatment to monitor for side effect
- send out CSF test shows growth of Cryptococcus antigen (01/30)
- ID consulted (01/30)- advised to continue the current dosage of lipo amphotericin 3 mg/kg, and c/w flucytosine 25mg/kg/dose.
- Due to side effect of medication observe the daily mag, K, Ca, Na, CBC, CMP
- Blood culture (02/01)- gram stain of blood culture reveals budding yeast
- Renal u/s (02/01)- showed renal cysts and prostatomegaly extending into the bladder base
- Repeat blood cultures (02/04)- no growth seen
#Thyroid nodule
-Patient had been discharged by endocrinology
-Nodule biopsy in 23 was negative for any malignancy
-TSH/FT4 WNL
#Hyperlipidemia
-continue on atorvastatin
#Generalized weakness
- no evidence of current infection
-chest xray- normal
- UA is normal
-COVID-negative
Anticipated Discharge: > 48 hours
Subjective/Interval History
-
Date of Service: February 07, 2024
Objective Data
-
Labs:
Laboratory Results
02/07/24
06:20
WBC 9.4
Hgb 12.6 L
Hct 34.8 L
Plt Count 185
Sodium 138
Potassium 3.3 L
Chloride 100
Carbon Dioxide 29
BUN 20
Creatinine 1.2
Glucose 104 H
Calcium 9.5
Total Bilirubin 0.6
AST 22
ALT 16
Alkaline Phosphatase 69
Vital Signs:
Vital Signs
Temp Pulse Resp BP Pulse Ox
98.2 F 64 16 125/76 96
02/07/24 11:15 02/07/24 11:15 02/07/24 11:15 02/07/24 11:15 02/07/24 11:15
I&O
02/06/24 02/07/24 02/08/24
06:59 06:59 06:59
Intake Total 2172.0 / 2244.5 2461.3 / 2461.3
Output Total 1250 / 1250 1400 / 1400
Balance 922.0 / 994.5 1061.3 / 1061.3
Review of Systems
-
Unable to obtain full review of systems at this time due to: Other (Altered mental status)
Physical Exam
-
General: No Apparent Distress and Comfortable
HEENT: Normocephalic and Atraumatic
Respiratory: Clear to Auscultation
Cardiac: S1/S2 and Murmur (Systolic murmur)
GI: Soft, Nontender, Nondistended, Normal Bowel Sounds and Other (On Dobbhoff)
Skin: Warm and Dry
Neuro: Awake and Alert
--- NOTE | 2024-02-07 16:49 | CM ---
Patient seen at bedside with Maylin & son
Spoke with Janay from [facility]. May be able to take patient.
Referral to [facility] placed in care port.
PLAN: discharge when medically stable, rehab pending bed availability.
[2024-02-08] VITALS (7 sets, daily range): BP systolic 112–149; BP diastolic 61–78; PULSE 66
[2024-02-08] MEDS: NSS 1000 IV ×2 (00:30→16:26)
[2024-02-08] MEDS: [UNRECOGNIZED DRUG - OTHER] 1750 MG TUBE (06:22)
[2024-02-08 06:50] LABS: Hemoglobin 12.6 g/dL (13.0-18.0); Mean Corpuscular Hgb 33.5 pg (27.0-31.0); Mean Corpuscular Volume 93.1 fL (80.0-94.0); Platelet Count 173 10^3/uL (130-400); Red Blood Cell Count 3.76 10^6/uL (4.70-6.10); Red Cell Dist. Width 11.9 % (11.5-14.5); White Blood Cell Count 7.4 10^3/uL (4.8-10.8)
[2024-02-08 07:27] LABS: ALT (SGPT) 31 U/L (0-50); AST (SGOT) 38 U/L (17-59); Albumin 3.1 g/dl (3.5-5.0); Alkaline Phosphatase 66 U/L (38-126); Blood Urea Nitrogen 22 mg/dl (9-20); Calcium 9.3 mg/dl (8.4-10.2); Carbon Dioxide 27 mmol/L (22-30); Chloride 99 mmol/L (98-107); Estimated Creatinine Clearance 43 ml/min; Glucose 103 mg/dl (70-99); Magnesium 1.8 mg/dl (1.6-2.3); Potassium 3.4 mmol/L (3.5-5.1); Sodium 137 mmol/L (135-145); Total Bilirubin 0.6 mg/dl (0.2-1.3); Total Protein 5.3 g/dl (6.3-8.2); eGFR 55.53
[2024-02-08] MEDS: KCL 20 MEQ PO (08:04)
[2024-02-08] MEDS: HEPARIN 5000 UNITS SC ×3 (08:04→23:14)
[2024-02-08] MEDS: MAGNESIUM OXIDE 500 MG PO ×2 (08:05→19:33)
[2024-02-08] MEDS: LIPITOR 20 MG PO (08:05)
[2024-02-08] MEDS: LOW STRENGTH ASPIRIN 81 MG PO (08:05)
--- NOTE | 2024-02-08 11:18 | W.PN.ID1 ---
Date of Service
Date of Service: February 08, 2024
Today's Communication
- plan at least 2 weeks of ampho + flucytosine from 01/27, induction will be finished after patient has the antifungals saturday, then switch to fluconazole saturday, possible dc saturday
- follow clinically
Assessment / Plan
Cryptococcal meningitis (immunocompetent patient)
- 10-20% of cases are in immunocompetent (though usually elderly) individuals
- await immunoglobulins
- Confirmed on antigen testing of CSF 1:15,334; crypto ag of serum 1:3518
- blood cultures 01/28 also crypto; 02/02 blood cultures x2 in progress no growth to date
- CSF 02/02 finalized negative
- awaiting repeat crag on csf, beyond that do not plan to trend further
- continue flucytosine 1750 mg po increased to QID through saturday then will switch to fluconazole
- continue lipo ampho B 3 mg/kg daily (no need to adjust dose for renal impairment). through saturday then will switch to fluconazole
- daily mag levels, K, Ca, Na
- continue aggressive K
- mag dose increased - im in agreement
- avoid nephrotoxic agents as feasible
- pretreatment with tylenol and PRN for rigors
- daily pretreatment with 500 ccs NS bolus in addition to maintenance fluids
- plan at least 2 weeks of ampho + flucytosine from 01/27, induction will be finished after patient has the antifungals saturday, then switch to fluconazole, possible dc saturday
- follow clinically
����������������������������������������������������������
Chief Complaint
-: Other (cryptococcal meningitis)
Subjective / Review of Systems
remains afebrile
bp stable
more alert, working with PT, improved short term memory
Vital Signs / Physical Exam
Vital Signs
Vital Signs
Temp Pulse Resp BP Pulse Ox
98.1 F 65 14 137/78 98
02/08/24 07:10 09/14/24 07:10 02/08/24 07:10 02/08/24 07:10 02/08/24 08:00
Physical Exam
Constitutional: No Acute Distress
Cardiovascular: Regular Rate and S1/S2; Negative Murmur or Rub
Pulmonary: Clear and Symmetric; Negative Wheezes or Rales
Gastrointestinal: Soft, Non Tender, Non Distended and Normal Bowel Sounds
Skin: Warm and Dry; Negative Rash or Jaundice
Neurological: Awake and Alert
Objective Data
Lab Data
Lab Results
02/08/24 06:36
02/08/24 06:36
ESR 6 mm/hour (0-20) 01/26/24 13:48
PT 14.7 Sec (11.4-14.6) H 01/28/24 10:25
INR 1.14 01/28/24 10:25
Estimated Creat Clear 43 ml/min 02/08/24 06:36
Total Bilirubin 0.6 mg/dl (0.2-1.3) 02/08/24 06:36
AST 38 U/L (17-59) 02/08/24 06:36
ALT 31 U/L (0-50) 02/08/24 06:36
Alkaline Phosphatase 66 U/L (38-126) 02/08/24 06:36
Most recent labs reviewed.
Micro Results:
02/03/24 17:15 CSF Culture - Final
Csf No Growth After 5 Days - Final Report
Gram Stain - Final
02/04/24 04:26 Blood Culture - Preliminary
Blood/Venous No Growth in 4 days- Final report to follow
02/03/24 14:04 Blood Culture - Preliminary
Blood/Venous No Growth in 4 days- Final report to follow
02/05/24 12:22 Respiratory Culture - Final
Sputum Usual Respiratory Laura
Gram Stain - Final
02/05/24 11:34 Nasal Screen MRSA (PCR) - Final
Nose MRSA not detected - performed by PCR methodology.
01/29/24 11:11 Blood Culture - Final
Blood/Venous Cryptococcus neoformans
Gram Stain - Final
01/29/24 04:53 Blood Culture - Final
Blood/Venous No Growth - Final Report
01/28/24 15:35 Fungus Mold Identification - Final
Csf Cryptococcus neoformans
01/28/24 13:45 CSF Culture - Final
Csf Yeast
Gram Stain - Final
01/26/24 13:45 Acid Fast Bacilli Smear - Preliminary
Csf Acid Fast Bacilli Culture - Preliminary
01/28/24 13:45 Fungal Culture - Preliminary
Csf Yeast
01/25/24 19:50 Salmonella/Shigella Culture - Final
Feces/Stool No Salmonella, Shigella, Aeromonas or Plesiomonas species
isolated.
Campylobacter Culture - Final
No Campylobacter species isolated.
Shiga Toxin Test - Final
No E. coli Shiga Toxin 1 or 2 detected.
Stool Leukocytes - Final
01/28/24 13:45 Meningitis/Encephalitis Panel (PCR) - Final
Csf
--- NOTE | 2024-02-08 12:20 | W.PN.NEPH.PH ---
Today's Communication / Plan
-
cont replace k and IVF
Assessment/Plan
-
Assessment
Hyponatremia
Fungal meningitis
Hyperlipidemia
WAI
CVA
Plan:
stable cr at 1.3
PO liquid intake is less,cont iVF
NS bolus with Amphotericin
BP stable
replace k and mg, phos is normal
increase scheduled kcl and cotn po mg
continue antifungals per ID, likely last day on Saturday
echo normal EF, mod
d/w
-
-
Date of Service: February 08, 2024
CC / HPI / ROS
-
Chief Complaint:
hyponatremia
History of Present Illness:
Na stable
on lipid amphoB/flucytocine for fungal meningitis
BP stable
Creatinine stable at 1.3
K low 3.4, mg 1.8
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
Review of Systems:
DHT in place, tolerating po solids per family
per liquids still some issue
but over all improving, able to move his extremities and speaking to family
Labs
-
Labs:
WBC 7.4 10^3/uL (4.8-10.8) 02/08/24 06:36
RBC 3.76 10^6/uL (4.70-6.10) L 02/08/24 06:36
Hgb 12.6 g/dL (13.0-18.0) L 02/08/24 06:36
Hct 35.0 % (39.0-52.0) L 02/08/24 06:36
Plt Count 173 10^3/uL (130-400) 02/08/24 06:36
Sodium 137 mmol/L (135-145) 02/08/24 06:36
Potassium 3.4 mmol/L (3.5-5.1) L 02/08/24 06:36
Chloride 99 mmol/L (98-107) 02/08/24 06:36
Carbon Dioxide 27 mmol/L (22-30) 02/08/24 06:36
BUN 22 mg/dl (9-20) H 02/08/24 06:36
Creatinine 1.3 mg/dL (0.7-1.3) 02/08/24 06:36
eGFR 55.53 02/08/24 06:36
Glucose 103 mg/dl (70-99) H 02/08/24 06:36
Calcium 9.3 mg/dl (8.4-10.2) 02/08/24 06:36
Phosphorus 3.6 mg/dl (2.5-4.5) 02/07/24 06:20
Albumin 3.1 g/dl (3.5-5.0) L 02/08/24 06:36
Physical Exam
-
Vital Signs:
Vital Signs
Temp Pulse Resp BP Pulse Ox
97.0 F 65 16 135/71 96
02/08/24 11:00 02/08/24 11:00 02/08/24 11:00 02/08/24 11:00 02/08/24 11:00
Cardiovascular:: Regular rate and rhythm
Respiratory:: Bilateral: CTA
Lung Excursion:: Normal
Abdomen:: Nontender and Soft
Extremity Edema:: None: Bilateral:
Coughlin Catheter: No
[2024-02-08] MEDS: [UNRECOGNIZED DRUG - OTHER] 1500 MG PO (13:03)
[2024-02-08] MEDS: FLUCYTOSINE 250 MG PO (13:03)
[2024-02-08] MEDS: STERILE WATER FOR INJECTION IV (13:04)
[2024-02-08] MEDS: KCL 40 MEQ PO (13:04)
[2024-02-08] MEDS: NSS 500 IV (15:01)
[2024-02-08] MEDS: TYLENOL 1000 MG PO (15:02)
--- NOTE | 2024-02-08 15:36 | W.PN.HOSP.TC ---
Today's Communication/Plan
-
CW antifungal tx
DC Dobhoff in am if continued improvement in oral intake
Assessment / Plan
Assessment / Plan
#Acute change in mental status with dysarthria:
- On 02/02- patient had a stroke alert called for weakness in left arm, dysphagia, and dysarthria
- Emergency CT scan (02/02)- showed negative findings for stroke
- On physical exam (02/04) does not respond to verbal stimulus, not oriented to time/place, strength is normal, reflexes are normal, negative pronator drift
- He had a LP with opening pressure performed and the opening pressure was 13 compared to 25 on the previous lumbar puncture.
- CSF cryptococcal antigen test showed wbc of 43, glucose <20, protein 189 which is consistent with infection in the csf.
- ID, neurology, nephrology, linen controller are on board
- Neurology added Keppra 1g IV q12 (02/03)- seizure prophylaxes
- MRA head neck ordered by neurology (02/03)- still pending
- Tax Examiner recommended q1hr neurochecks with NIHSS q shift, Renally dose all medication/antifungals, Maintain SpO2 >90-94%, Replete electrolytes with K>4, Mg>2, Maintain euglycemia with goal BG 140-180
- Head CT (02/04)- shows no new intracranial abnormality
- Placed dietary consult (02/05)- continue feeding tube Jevity 1.5, patient can also start IDDSI level 6 soft bite diet and thin liquids, will not be able to meet nutritional needs on oral intake alone
- On Levophed as needed to maintain Systolic blood pressure between 120-140.
- Neurology (02/05)- continue neurochecks, nihss
Benadryl discontinued
Physiatry consult
MRA head -no vessel occlusion, no aneurysm
MRA neck�Plaque at the bilateral ICA origin, left greater than right. Less than 50% estimated luminal diameter reduction on the right. Approximately 50% luminal diameter reduction on the left
#WAI on CKD
BUN, creatinine improving.
Hypokalemia -Replete potassium as needed
#Heart murmur:
- A murmur is heard over the aortic area on auscultation.
- echocardiogram normal (02/04)- shows no vegetations and a LVEF of 65-70%
#Fungal Meningitis - cryptococcal
Continue Amphotericin, flucytosine through 02/10/2024. Repeat lumbar puncture on 02/10/2024 for clearance.
Replete potassium, magnesium as needed.
- CT head on 01/17- no acute intracranial abnormalities
- Brain MRI 01/25- no evidence of acute infarct/bleed
- EEG ( 01/27)- no evidence of seizures recorded
- Continue Pt/OT - patients balance/ coordination is off
- Lumbar puncture showed opening pressure- 25, 20 cc of CSF collected, WBC count of 45, Lymphocytes 5%, granulocyte 1%, macrophages 44%, glucose <20, total protein 136
- continue on Amphotericin B ( 6th day), continue to monitor patient in the hospital for duration of treatment to monitor for side effect
- send out CSF test shows growth of Cryptococcus antigen (01/30)
- ID consulted (01/30)- advised to continue the current dosage of lipo amphotericin 3 mg/kg, and c/w flucytosine 25mg/kg/dose.
- Due to side effect of medication observe the daily mag, K, Ca, Na, CBC, CMP
- Blood culture (02/01)- gram stain of blood culture reveals budding yeast
- Renal u/s (02/01)- showed renal cysts and prostatomegaly extending into the bladder base
- Repeat blood cultures (02/04)- no growth seen
#Thyroid nodule
-Patient had been discharged by endocrinology
-Nodule biopsy in was negative for any malignancy
-TSH/FT4 WNL
#Hyperlipidemia
-continue on atorvastatin
#Generalized weakness
- no evidence of current infection
-chest xray- normal
- UA is normal
-COVID-negative
DC Dobhoff tube if continued improvement in oral intake
Anticipated Discharge: > 48 hours
Subjective/Interval History
-
Date of Service: February 08, 2024
Starting to have a improved oral intake.
Denies any nausea or vomiting.
Objective Data
-
Labs:
Laboratory Results
02/08/24
06:36
WBC 7.4
Hgb 12.6 L
Hct 35.0 L
Plt Count 173
Sodium 137
Potassium 3.4 L
Chloride 99
Carbon Dioxide 27
BUN 22 H
Creatinine 1.3
Glucose 103 H
Calcium 9.3
Total Bilirubin 0.6
AST 38
ALT 31
Alkaline Phosphatase 66
Vital Signs:
Vital Signs
Temp Pulse Resp BP Pulse Ox
97.0 F 65 16 135/71 96
02/08/24 11:00 02/08/24 11:00 02/08/24 11:00 02/08/24 11:00 02/08/24 11:00
I&O
02/07/24 02/08/24 02/09/24
06:59 06:59 06:59
Intake Total 2461.3 / 2461.3 1320 / 1320
Output Total 1400 / 1400 550 / 550
Balance 1061.3 / 1061.3 770 / 770
Review of Systems
-
Respiratory: Denies Trouble Breathing
Cardiac: Denies Chest Pain
Neuro: Denies Dizzy or Headache
Physical Exam
-
General: Comfortable
Respiratory: Non Labored Respirations; Negative Accessory Resp Muscle Use
Cardiac: Regular Rhythm and S1/S2
GI: Soft and Nontender
Neuro: Awake, Alert and AO x 3
Psych: Calm
Data Reviewed
-
Labs: Labs Reviewed by
[2024-02-08] MEDS: D5W 50 IV ×2 (16:13→17:54)
[2024-02-08] MEDS: AMBISOME 150 MG IV (16:13)
[2024-02-08] MEDS: [UNRECOGNIZED DRUG - OTHER] 1750 MG PO ×2 (17:54→21:31)
[2024-02-09] VITALS (8 sets, daily range): BP systolic 121–161; BP diastolic 67–90; PULSE 64
[2024-02-09] MEDS: [UNRECOGNIZED DRUG - OTHER] 1750 MG PO ×4 (05:36→21:01)
[2024-02-09] MEDS: LOW STRENGTH ASPIRIN 81 MG PO (08:36)
[2024-02-09] MEDS: LIPITOR 20 MG PO (08:36)
[2024-02-09] MEDS: KCL 40 MEQ PO (08:37)
[2024-02-09] MEDS: MAGNESIUM OXIDE 500 MG PO ×2 (08:37→21:00)
[2024-02-09] MEDS: HEPARIN 5000 UNITS SC ×3 (08:37→23:19)
[2024-02-09 08:38] LABS: Hematocrit 34.3 % (39.0-52.0); Hemoglobin 12.3 g/dL (13.0-18.0); Mean Corp Hgb Conc. 35.9 g/dL (33.0-37.0); Mean Corpuscular Hgb 32.8 pg (27.0-31.0); Mean Corpuscular Volume 91.5 fL (80.0-94.0); Mean Platelet Volume 9.4 fL (7.4-10.4); Platelet Count 197 10^3/uL (130-400); Red Blood Cell Count 3.75 10^6/uL (4.70-6.10); Red Cell Dist. Width 12.1 % (11.5-14.5); White Blood Cell Count 7.7 10^3/uL (4.8-10.8)
[2024-02-09] MEDS: NSS 1000 IV (08:48)
[2024-02-09 08:53] LABS: ALT (SGPT) 37 U/L (0-50); AST (SGOT) 37 U/L (17-59); Alkaline Phosphatase 65 U/L (38-126); Blood Urea Nitrogen 25 mg/dl (9-20); Calcium 9.2 mg/dl (8.4-10.2); Carbon Dioxide 29 mmol/L (22-30); Chloride 101 mmol/L (98-107); Estimated Creatinine Clearance 43 ml/min; Glucose 102 mg/dl (70-99); Magnesium 1.8 mg/dl (1.6-2.3); Potassium 3.6 mmol/L (3.5-5.1); Sodium 136 mmol/L (135-145); Total Bilirubin 0.5 mg/dl (0.2-1.3); Total Protein 5.1 g/dl (6.3-8.2); eGFR 55.53
--- NOTE | 2024-02-09 11:21 | W.PN.ID1 ---
Date of Service
Date of Service: February 09, 2024
Today's Communication
c/w ampho/flucytosine through saturday
Assessment / Plan
Cryptococcal meningitis (immunocompetent patient)
- 10-20% of cases are in immunocompetent (though usually elderly) individuals
- await immunoglobulins
- Confirmed on antigen testing of CSF 1:15,334; crypto ag of serum 1:3518
- blood cultures 01/28 also crypto; 02/02 blood cultures x2 in progress no growth to date
- CSF 02/02 finalized negative
- awaiting repeat crag on csf, beyond that do not plan to trend further
- continue flucytosine 1750 mg po increased to QID through saturday then will switch to fluconazole
- continue lipo ampho B 3 mg/kg daily (no need to adjust dose for renal impairment). through saturday then will switch to fluconazole
- daily mag levels, K, Ca, Na
- continue aggressive K
- mag dose increased - im in agreement
- avoid nephrotoxic agents as feasible
- pretreatment with tylenol and PRN for rigors
- daily pretreatment with 500 ccs NS bolus in addition to maintenance fluids
- plan at least 2 weeks of ampho + flucytosine from 01/27, induction will be finished after patient has the antifungals saturday, then switch to fluconazole, possible dc saturday
- follow clinically
����������������������������������������������������������
Chief Complaint
-: Other (cryptococcal meningitis)
Subjective / Review of Systems
afebrile
no events overnight
walking in the [place] with pt
Vital Signs / Physical Exam
Vital Signs
Vital Signs
Temp Pulse Resp BP Pulse Ox
97.8 F 76 18 161/86 96
02/09/24 07:10 02/09/24 07:10 02/09/24 07:10 02/09/24 07:10 02/09/24 07:10
Physical Exam
Constitutional: No Acute Distress
Cardiovascular: Regular Rate
Pulmonary: Symmetric and Non Labored
Gastrointestinal: Non Distended
Neurological: Awake
Objective Data
Lab Data
Lab Results
02/09/24 08:24
02/09/24 08:24
ESR 6 mm/hour (0-20) 01/26/24 13:48
PT 14.7 Sec (11.4-14.6) H 01/28/24 10:25
INR 1.14 01/28/24 10:25
Estimated Creat Clear 43 ml/min 02/09/24 08:24
Total Bilirubin 0.5 mg/dl (0.2-1.3) 02/09/24 08:24
AST 37 U/L (17-59) 02/09/24 08:24
ALT 37 U/L (0-50) 02/09/24 08:24
Alkaline Phosphatase 65 U/L (38-126) 02/09/24 08:24
Most recent labs reviewed.
Micro Results:
02/04/24 04:26 Blood Culture - Final
Blood/Venous No Growth - Final Report
02/03/24 14:04 Blood Culture - Final
Blood/Venous No Growth - Final Report
02/03/24 17:15 CSF Culture - Final
Csf No Growth After 5 Days - Final Report
Gram Stain - Final
02/05/24 12:22 Respiratory Culture - Final
Sputum Usual Respiratory Laura
Gram Stain - Final
02/05/24 11:34 Nasal Screen MRSA (PCR) - Final
Nose MRSA not detected - performed by PCR methodology.
01/29/24 11:11 Blood Culture - Final
Blood/Venous Cryptococcus neoformans
Gram Stain - Final
01/29/24 04:53 Blood Culture - Final
Blood/Venous No Growth - Final Report
01/28/24 15:35 Fungus Mold Identification - Final
Csf Cryptococcus neoformans
01/28/24 13:45 CSF Culture - Final
Csf Yeast
Gram Stain - Final
01/26/24 13:45 Acid Fast Bacilli Smear - Preliminary
Csf Acid Fast Bacilli Culture - Preliminary
01/28/24 13:45 Fungal Culture - Preliminary
Csf Yeast
01/25/24 19:50 Salmonella/Shigella Culture - Final
Feces/Stool No Salmonella, Shigella, Aeromonas or Plesiomonas species
isolated.
Campylobacter Culture - Final
No Campylobacter species isolated.
Shiga Toxin Test - Final
No E. coli Shiga Toxin 1 or 2 detected.
Stool Leukocytes - Final
01/28/24 13:45 Meningitis/Encephalitis Panel (PCR) - Final
Csf
[2024-02-09] MEDS: STERILE WATER FOR INJECTION IV (12:39)
--- NOTE | 2024-02-09 12:44 | W.PN.NEPH.PH ---
Today's Communication / Plan
-
wean off IVF after current bag
Assessment/Plan
-
Assessment
Hyponatremia
Fungal meningitis
Hyperlipidemia
WAI
CVA
Plan:
stable cr at 1.3
complete current IVF bag
NS bolus with Amphotericin
BP stable
repleted k and mg, phos was normal
cont scheduled kcl and mg
continue antifungals per ID, likely last day on Saturday
echo normal EF, mod
d/w
-
-
Date of Service: February 09, 2024
CC / HPI / ROS
-
Chief Complaint:
hyponatremia
History of Present Illness:
Na stable
on lipid amphoB/flucytocine for fungal meningitis
BP stable
Creatinine stable at 1.3
K normal 3.6, mg 1.8
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
Review of Systems:
DHT in place, tolerating po per family
over all improving, walked with PT and sitting in chair currently
Labs
-
Labs:
WBC 7.7 10^3/uL (4.8-10.8) 02/09/24 08:24
RBC 3.75 10^6/uL (4.70-6.10) L 02/09/24 08:24
Hgb 12.3 g/dL (13.0-18.0) L 02/09/24 08:24
Hct 34.3 % (39.0-52.0) L 02/09/24 08:24
Plt Count 197 10^3/uL (130-400) 02/09/24 08:24
Sodium 136 mmol/L (135-145) 02/09/24 08:24
Potassium 3.6 mmol/L (3.5-5.1) 02/09/24 08:24
Chloride 101 mmol/L (98-107) 02/09/24 08:24
Carbon Dioxide 29 mmol/L (22-30) 02/09/24 08:24
BUN 25 mg/dl (9-20) H 02/09/24 08:24
Creatinine 1.3 mg/dL (0.7-1.3) 02/09/24 08:24
eGFR 55.53 02/09/24 08:24
Glucose 102 mg/dl (70-99) H 02/09/24 08:24
Calcium 9.2 mg/dl (8.4-10.2) 02/09/24 08:24
Phosphorus 3.6 mg/dl (2.5-4.5) 02/07/24 06:20
Albumin 3.0 g/dl (3.5-5.0) L 02/09/24 08:24
Physical Exam
-
Vital Signs:
Vital Signs
Temp Pulse Resp BP Pulse Ox
97.8 F 76 18 161/86 96
02/09/24 07:10 02/09/24 07:10 02/09/24 07:10 02/09/24 07:10 02/09/24 07:10
Cardiovascular:: Regular rate and rhythm
Respiratory:: Bilateral: CTA
Lung Excursion:: Normal
Abdomen:: Nontender and Soft
Extremity Edema:: None: Bilateral:
Coughlin Catheter: No
--- NOTE | 2024-02-09 12:57 | W.PN.HOSP.TC ---
Today's Communication/Plan
-
CW antifungal per ID
CW PT/OT tx
DC planning
Assessment / Plan
Assessment / Plan
#Acute change in mental status with dysarthria:
- On 02/02- patient had a stroke alert called for weakness in left arm, dysphagia, and dysarthria
- Emergency CT scan (02/02)- showed negative findings for stroke
- On physical exam (02/04) does not respond to verbal stimulus, not oriented to time/place, strength is normal, reflexes are normal, negative pronator drift
- He had a LP with opening pressure performed and the opening pressure was 13 compared to 25 on the previous lumbar puncture.
- CSF cryptococcal antigen test showed wbc of 43, glucose <20, protein 189 which is consistent with infection in the csf.
- ID, neurology, nephrology, sawmill relief worker are on board
- Neurology added Keppra 1g IV q12 (02/03)- seizure prophylaxes
- MRA head neck ordered by neurology (02/03)- still pending
- Food Or Baggage Handling [employer]ampman recommended q1hr neurochecks with NIHSS q shift, Renally dose all medication/antifungals, Maintain SpO2 >90-94%, Replete electrolytes with K>4, Mg>2, Maintain euglycemia with goal BG 140-180
- Head CT (02/04)- shows no new intracranial abnormality
- Placed dietary consult (02/05)- continue feeding tube Jevity 1.5, patient can also start IDDSI level 6 soft bite diet and thin liquids, will not be able to meet nutritional needs on oral intake alone
- On Levophed as needed to maintain Systolic blood pressure between 120-140.
- Neurology (02/05)- continue neurochecks, nihss
Benadryl discontinued
Physiatry consult
MRA head -no vessel occlusion, no aneurysm
MRA neck�Plaque at the bilateral ICA origin, left greater than right. Less than 50% estimated luminal diameter reduction on the right. Approximately 50% luminal diameter reduction on the left
#WAI on CKD
BUN, creatinine normalized
#Heart murmur:
- A murmur is heard over the aortic area on auscultation.
- echocardiogram normal (02/04)- shows no vegetations and a LVEF of 65-70%
#Fungal Meningitis - cryptococcal
Continue Amphotericin, flucytosine through 02/10/2024. Repeat lumbar puncture on 02/10/2024 for clearance.
Replete potassium, magnesium as needed.
- CT head on 01/17- no acute intracranial abnormalities
- Brain MRI 01/25- no evidence of acute infarct/bleed
- EEG ( 01/27)- no evidence of seizures recorded
- Continue Pt/OT - patients balance/ coordination is off
- Lumbar puncture showed opening pressure- 25, 20 cc of CSF collected, WBC count of 45, Lymphocytes 5%, granulocyte 1%, macrophages 44%, glucose <20, total protein 136
- continue on Amphotericin B ( 6th day), continue to monitor patient in the hospital for duration of treatment to monitor for side effect
- send out CSF test shows growth of Cryptococcus antigen (01/30)
- ID consulted (01/30)- advised to continue the current dosage of lipo amphotericin 3 mg/kg, and c/w flucytosine 25mg/kg/dose.
- Due to side effect of medication observe the daily mag, K, Ca, Na, CBC, CMP
- Blood culture (02/01)- gram stain of blood culture reveals budding yeast
- Renal u/s (02/01)- showed renal cysts and prostatomegaly extending into the bladder base
- Repeat blood cultures (02/04)- no growth seen
#Thyroid nodule
-Patient had been discharged by endocrinology
-Nodule biopsy in was negative for any malignancy
-TSH/FT4 WNL
#Hyperlipidemia
-continue on atorvastatin
#Generalized weakness
- no evidence of current infection
-chest xray- normal
- UA is normal
-COVID-negative
Anticipated Discharge: > 48 hours
Subjective/Interval History
-
Date of Service: February 09, 2024
Appetitie better and eating better .
Objective Data
-
Labs:
Laboratory Results
02/09/24
08:24
WBC 7.7
Hgb 12.3 L
Hct 34.3 L
Plt Count 197
Sodium 136
Potassium 3.6
Chloride 101
Carbon Dioxide 29
BUN 25 H
Creatinine 1.3
Glucose 102 H
Calcium 9.2
Total Bilirubin 0.5
AST 37
ALT 37
Alkaline Phosphatase 65
Vital Signs:
Vital Signs
Temp Pulse Resp BP Pulse Ox
97.8 F 76 18 161/86 96
02/09/24 07:10 02/09/24 07:10 02/09/24 07:10 02/09/24 07:10 02/09/24 07:10
I&O
02/08/24 02/09/24 02/10/24
06:59 06:59 06:59
Intake Total 1320 / 1320 1979 / 1979
Output Total 550 / 550 800 / 800
Balance 770 / 770 1180 / 1180
Review of Systems
-
Constitutional: Denies Fever or Chills
Respiratory: Denies Trouble Breathing
Cardiac: Denies Chest Pain
Abdomen/GI: Denies Abdominal Pain, Nausea or Vomiting
Neuro: Denies Headache
Physical Exam
-
General: No Apparent Distress
HEENT: Moist Mucous Membranes
Cardiac: Regular Rhythm and S1/S2
GI: Soft
Neuro: Awake, Alert and Oriented
Psych: Calm
Data Reviewed
-
Labs: Labs Reviewed by me
--- NOTE | 2024-02-09 14:30 | PTCARENOTE ---
Right arm noted to be swollen. Picc line in place. IV team paged to help evaluate.
[2024-02-09] MEDS: TYLENOL 1000 MG PO (14:52)
[2024-02-09] MEDS: NSS 500 IV (14:53)
[2024-02-09] MEDS: AMBISOME 150 MG IV (16:10)
[2024-02-09] MEDS: D5W 50 IV ×2 (16:10→18:20)
--- NOTE | 2024-02-09 16:30 | PTCARENOTE ---
municipal clerk paged nursing supervisor dumping because unable to reach IV team after two pages and one tiger text.
--- NOTE | 2024-02-09 17:24 | PTCARENOTE ---
primary nurse noticed right arm edema, a change from this am assessment, requested VAT to assess. picc line currently in right arm- placed 02/05/24, suggested us of arm. primary RN aware, pt resting, at bedside
--- NOTE | 2024-02-09 17:25 | PTCARENOTE ---
IV team evaluated patient's swollen right arm, recommended ultrasound and reach out to attending. Verbal order received from attending for an ultrasound of the arm to be done tomorrow morning. In the mean time, IV fluids switched to left arm.
[2024-02-09 23:13] LABS: IgA 203 mg/dl (70-400); IgG 578 mg/dl (700-1600); IgM 40 mg/dl (40-230)
[2024-02-10] VITALS (7 sets, daily range): BP systolic 125–163; BP diastolic 66–91; PULSE 71
[2024-02-10] MEDS: [UNRECOGNIZED DRUG - OTHER] 1750 MG PO ×4 (05:38→22:01)
[2024-02-10 06:55] LABS: Hematocrit 36.8 % (39.0-52.0); Hemoglobin 13.1 g/dL (13.0-18.0); Mean Corp Hgb Conc. 35.6 g/dL (33.0-37.0); Mean Corpuscular Hgb 33.7 pg (27.0-31.0); Mean Corpuscular Volume 94.6 fL (80.0-94.0); Mean Platelet Volume 9.6 fL (7.4-10.4); Platelet Count 191 10^3/uL (130-400); Red Blood Cell Count 3.89 10^6/uL (4.70-6.10); Red Cell Dist. Width 12.2 % (11.5-14.5); White Blood Cell Count 7.8 10^3/uL (4.8-10.8)
[2024-02-10 07:34] LABS: ALT (SGPT) 45 U/L (0-50); AST (SGOT) 40 U/L (17-59); Albumin 3.2 g/dl (3.5-5.0); Alkaline Phosphatase 75 U/L (38-126); Blood Urea Nitrogen 30 mg/dl (9-20); Calcium 9.7 mg/dl (8.4-10.2); Carbon Dioxide 30 mmol/L (22-30); Chloride 99 mmol/L (98-107); Estimated Creatinine Clearance 40 ml/min; Glucose 98 mg/dl (70-99); Magnesium 1.7 mg/dl (1.6-2.3); Potassium 3.5 mmol/L (3.5-5.1); Sodium 138 mmol/L (135-145); Total Bilirubin 0.5 mg/dl (0.2-1.3); Total Protein 5.5 g/dl (6.3-8.2); eGFR 50.81
--- NOTE | 2024-02-10 10:08 | W.PN.NEPH.PH ---
Today's Communication / Plan
-
IVF
Assessment/Plan
-
Assessment
Hyponatremia
Fungal meningitis
Hyperlipidemia
WAI
CVA
Plan:
IVF
encourage po
follow BMP
continue flucytosine
-
-
Date of Service: February 10, 2024
CC / HPI / ROS
-
Chief Complaint:
hyponatremia
History of Present Illness:
Na stable
on lipid amphoB/flucytocine for fungal meningitis
BP stable
Creatinine up to 1.4
K normal 3.5
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
Review of Systems:
DHT out
eats only if fed
over all improving, walked with PT and sitting in chair currently
Labs
-
Labs:
WBC 7.8 10^3/uL (4.8-10.8) 02/10/24 05:44
RBC 3.89 10^6/uL (4.70-6.10) L 02/10/24 05:44
Hgb 13.1 g/dL (13.0-18.0) 02/10/24 05:44
Hct 36.8 % (39.0-52.0) L 02/10/24 05:44
Plt Count 191 10^3/uL (130-400) 02/10/24 05:44
Sodium 138 mmol/L (135-145) 02/10/24 05:44
Potassium 3.5 mmol/L (3.5-5.1) 02/10/24 05:44
Chloride 99 mmol/L (98-107) 02/10/24 05:44
Carbon Dioxide 30 mmol/L (22-30) 02/10/24 05:44
BUN 30 mg/dl (9-20) H 02/10/24 05:44
Creatinine 1.4 mg/dL (0.7-1.3) H 02/10/24 05:44
eGFR 50.81 02/10/24 05:44
Glucose 98 mg/dl (70-99) 02/10/24 05:44
Calcium 9.7 mg/dl (8.4-10.2) 02/10/24 05:44
Phosphorus 3.6 mg/dl (2.5-4.5) 02/07/24 06:20
Albumin 3.2 g/dl (3.5-5.0) L 02/10/24 05:44
Physical Exam
-
Vital Signs:
Vital Signs
Temp Pulse Resp BP Pulse Ox
99.0 F 71 16 149/86 95
02/10/24 07:20 02/10/24 07:20 02/10/24 07:20 02/10/24 07:20 02/10/24 07:20
Cardiovascular:: Regular rate and rhythm
Respiratory:: Bilateral: Coarse
Lung Excursion:: Normal
Abdomen:: Nontender and Soft
Bowel Sounds:: Normal
Extremity Edema:: None: Bilateral:
[2024-02-10] MEDS: HEPARIN 5000 UNITS SC ×2 (10:24→15:59)
[2024-02-10] MEDS: LIPITOR 20 MG PO (10:24)
[2024-02-10] MEDS: MAGNESIUM OXIDE 500 MG PO ×2 (10:24→22:01)
[2024-02-10] MEDS: LOW STRENGTH ASPIRIN 81 MG PO (10:24)
[2024-02-10] MEDS: NSS 1000 IV ×2 (11:38→22:11)
[2024-02-10] MEDS: KCL ELIXIR 40 MEQ PO (11:39)
[2024-02-10] MEDS: STERILE WATER FOR INJECTION IV (11:42)
--- NOTE | 2024-02-10 12:52 | W.PN.ID1 ---
Date of Service
Date of Service: February 10, 2024
Today's Communication
- tomorrow switch to fluconazole dose at 400 mg PO qday for 6 weeks then will decrease to 200 mg PO qday for another 11 months
- EKG tomorrow afternoon
- follow clinically; follow up with me in 6 weeks
mildly low IgG - follow up with immunology outpatient
Assessment / Plan
Cryptococcal meningitis (immunocompetent patient)
- 10-20% of cases are in immunocompetent (though usually elderly) individuals
- mildly low IgG - follow up with immunology outpatient
- Confirmed on antigen testing of CSF 1:15,334; crypto ag of serum 1:3518
- blood cultures 01/28 also crypto; 02/02 blood cultures x2 in progress no growth to date
- CSF 02/02 finalized negative
- awaiting repeat crag on csf, beyond that do not plan to trend further
- continue flucytosine 1750 mg po increased to QID through today
- continue lipo ampho B 3 mg/kg daily (no need to adjust dose for renal impairment). through saturday then will switch to fluconazole
- daily mag levels, K, Ca, Na
- continue aggressive K
- mag dose increased - im in agreement
- avoid nephrotoxic agents as feasible
- pretreatment with tylenol and PRN for rigors
- daily pretreatment with 500 ccs NS bolus in addition to maintenance fluids
- tomorrow switch to fluconazole dose at 400 mg PO qday for 6 weeks then will decrease to 200 mg PO qday for another 11 months
- EKG tomorrow afternoon
- follow clinically
����������������������������������������������������������
Chief Complaint
-: Other (cryptococcal meningitis)
Subjective / Review of Systems
afebrile
tolerating current therapies
increasing lower extremity strength
Vital Signs / Physical Exam
Vital Signs
Vital Signs
Temp Pulse Resp BP Pulse Ox
99.5 F 72 16 132/78 96
02/10/24 11:50 02/10/24 11:50 02/10/24 11:50 02/10/24 11:50 02/10/24 11:50
Physical Exam
Constitutional: No Acute Distress and Chronically Ill
Cardiovascular: Regular Rate and S1/S2; Negative Murmur or Rub
Pulmonary: Clear and Symmetric; Negative Wheezes or Rales
Gastrointestinal: Soft, Non Tender, Non Distended and Normal Bowel Sounds
Skin: Warm and Dry; Negative Rash or Jaundice
Objective Data
Lab Data
Lab Results
02/10/24 05:44
02/10/24 05:44
ESR 6 mm/hour (0-20) 01/26/24 13:48
PT 14.7 Sec (11.4-14.6) H 01/28/24 10:25
INR 1.14 01/28/24 10:25
Estimated Creat Clear 40 ml/min 02/10/24 05:44
Total Bilirubin 0.5 mg/dl (0.2-1.3) 02/10/24 05:44
AST 40 U/L (17-59) 02/10/24 05:44
ALT 45 U/L (0-50) 02/10/24 05:44
Alkaline Phosphatase 75 U/L (38-126) 02/10/24 05:44
Most recent labs reviewed.
Micro Results:
02/04/24 04:26 Blood Culture - Final
Blood/Venous No Growth - Final Report
02/03/24 14:04 Blood Culture - Final
Blood/Venous No Growth - Final Report
02/03/24 17:15 CSF Culture - Final
Csf No Growth After 5 Days - Final Report
Gram Stain - Final
02/05/24 12:22 Respiratory Culture - Final
Sputum Usual Respiratory Laura
Gram Stain - Final
02/05/24 11:34 Nasal Screen MRSA (PCR) - Final
Nose MRSA not detected - performed by PCR methodology.
01/29/24 11:11 Blood Culture - Final
Blood/Venous Cryptococcus neoformans
Gram Stain - Final
01/29/24 04:53 Blood Culture - Final
Blood/Venous No Growth - Final Report
01/28/24 15:35 Fungus Mold Identification - Final
Csf Cryptococcus neoformans
01/28/24 13:45 CSF Culture - Final
Csf Yeast
Gram Stain - Final
01/26/24 13:45 Acid Fast Bacilli Smear - Preliminary
Csf Acid Fast Bacilli Culture - Preliminary
01/28/24 13:45 Fungal Culture - Preliminary
Csf Yeast
01/25/24 19:50 Salmonella/Shigella Culture - Final
Feces/Stool No Salmonella, Shigella, Aeromonas or Plesiomonas species
isolated.
Campylobacter Culture - Final
No Campylobacter species isolated.
Shiga Toxin Test - Final
No E. coli Shiga Toxin 1 or 2 detected.
Stool Leukocytes - Final
01/28/24 13:45 Meningitis/Encephalitis Panel (PCR) - Final
Csf
Care Review
Plan reviewed with: Physician (Dr Norman - quoc)
--- NOTE | 2024-02-10 14:54 | CM ---
Patient seen at bedside with Maylin.
per note EKG tomorrow, start po abt tomorrow.
PT recommends acute rehab.
Spoke with Janay from [facility].
PMR consult ordered.
PLAN: Discharge when medically stable to [facility] rehab, pending bed availability
[2024-02-10] MEDS: NSS 250 IV (15:15)
[2024-02-10] MEDS: TYLENOL 1000 MG PO (15:17)
--- NOTE | 2024-02-10 15:39 | W.PN.HOSP.TC ---
Today's Communication/Plan
-
Follow-up with infectious disease
Follow-up with PM&R
Continue to monitor creatinine and electrolytes
Discussed with rn field case manager about placement in SNF for rehab
Assessment / Plan
Assessment / Plan
#Acute change in mental status with dysarthria:
Following up with rn field case manager about placement in snf for rehab
Consulted physiatry (02/09)
- On 02/02- patient had a stroke alert called for weakness in left arm, dysphagia, and dysarthria
- Emergency CT scan (02/02)- showed negative findings for stroke
- On physical exam (02/04) does not respond to verbal stimulus, not oriented to time/place, strength is normal, reflexes are normal, negative pronator drift
- He had a LP with opening pressure performed and the opening pressure was 13 compared to 25 on the previous lumbar puncture.
- CSF cryptococcal antigen test showed wbc of 43, glucose <20, protein 189 which is consistent with infection in the csf.
- ID, neurology, nephrology, embossing clerk are on board
- Neurology added Keppra 1g IV q12 (02/03)- seizure prophylaxes
- MRA head neck ordered by neurology (02/03)- still pending
- Cooling Pipe Inspector recommended q1hr neurochecks with NIHSS q shift, Renally dose all medication/antifungals, Maintain SpO2 >90-94%, Replete electrolytes with K>4, Mg>2, Maintain euglycemia with goal BG 140-180
- Head CT (02/04)- shows no new intracranial abnormality
- Placed dietary consult (02/05)- continue feeding tube Jevity 1.5, patient can also start IDDSI level 6 soft bite diet and thin liquids, will not be able to meet nutritional needs on oral intake alone
- On Levophed as needed to maintain Systolic blood pressure between 120-140.
- Neurology (02/05)- continue neurochecks, nihss
Benadryl discontinued
Physiatry consult
MRA head -no vessel occlusion, no aneurysm
MRA neck�Plaque at the bilateral ICA origin, left greater than right. Less than 50% estimated luminal diameter reduction on the right. Approximately 50% luminal diameter reduction on the left
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
- Confirmed on peripheral vascular ultrasound on 02/10/24
- Ordered Eliquis 10 mg BID 1 month
#WAI on CKD
BUN, creatinine normalized
#Heart murmur:
- A murmur is heard over the aortic area on auscultation.
- echocardiogram normal (02/04)- shows no vegetations and a LVEF of 65-70%
#Fungal Meningitis - cryptococcal
as per ID- Continue Amphotericin, flucytosine through today 02/10/2024. On 02/11/2024 switch to fluconazole 400 mg PO for 6 weeks then will decrease to 200 mg POfor another 11 months. follow up with ID in 6 weeks.
Repeat lumbar puncture scheduled today 02/10/2024 for clearance.
Ordered compliment c4 test (02/10/24)
Low IgG on immunoglobulin testing- follow up immunology outpatient
Repleted potassium today.
- CT head on 01/17- no acute intracranial abnormalities
- Brain MRI 01/25- no evidence of acute infarct/bleed
- EEG ( 01/27)- no evidence of seizures recorded
- Continue Pt/OT - patients balance/ coordination is off
- Lumbar puncture showed opening pressure- 25, 20 cc of CSF collected, WBC count of 45, Lymphocytes 5%, granulocyte 1%, macrophages 44%, glucose <20, total protein 136
- continue on Amphotericin B ( 6th day), continue to monitor patient in the hospital for duration of treatment to monitor for side effect
- send out CSF test shows growth of Cryptococcus antigen (01/30)
- ID consulted (01/30)- advised to continue the current dosage of lipo amphotericin 3 mg/kg, and c/w flucytosine 25mg/kg/dose.
- Due to side effect of medication observe the daily mag, K, Ca, Na, CBC, CMP
- Blood culture (02/01)- gram stain of blood culture reveals budding yeast
- Renal u/s (02/01)- showed renal cysts and prostatomegaly extending into the bladder base
- Repeat blood cultures (02/04)- no growth seen
#Thyroid nodule
-Patient had been discharged by endocrinology
-Nodule biopsy in 23 was negative for any malignancy
-TSH/FT4 WNL
#Hyperlipidemia
-continue on atorvastatin
#Generalized weakness
- no evidence of current infection
-chest xray- normal
- UA is normal
-COVID-negative
Anticipated Discharge: 24 - 48 hours
Subjective/Interval History
-
Date of Service: February 10, 2024
No overnight events. No acute medical complaints.
Objective Data
-
Labs:
Laboratory Results
02/10/24
05:44
WBC 7.8
Hgb 13.1
Hct 36.8 L
Plt Count 191
Sodium 138
Potassium 3.5
Chloride 99
Carbon Dioxide 30
BUN 30 H
Creatinine 1.4 H
Glucose 98
Calcium 9.7
Total Bilirubin 0.5
AST 40
ALT 45
Alkaline Phosphatase 75
Vital Signs:
Vital Signs
Temp Pulse Resp BP Pulse Ox
99.5 F 72 16 132/78 96
02/10/24 11:50 02/10/24 11:50 02/10/24 11:50 02/10/24 11:50 02/10/24 11:50
I&O
02/09/24 02/10/24 02/11/24
06:59 06:59 06:59
Intake Total 1979 / 1979 600 / 600
Output Total 800 / 800 850 / 850
Balance 1180 / 1180 -250 / -250
Review of Systems
-
History Source: Patient
All other systems: Reviewed and negative
Physical Exam
-
General: Well Developed and Well Nourished
HEENT: Normocephalic and Atraumatic
Respiratory: Clear to Auscultation
Cardiac: Irregular Rhythm (murmer over aortic area)
GI: Soft, Nontender and Nondistended
Neuro: Awake, Alert and Facial Droop (right sided)
Psych: Calm
Data Reviewed
-
Labs: Labs Reviewed by me and Discussed with Physician
--- NOTE | 2024-02-10 15:54 | W.PN.UPDATE ---
Update Note
Progress Note Update
Seen and examined by me independently in collaboration with the medical sales consultant.
Lab data and imaging data reviewed.
Addendum as below :
Patient feels continuously improved in general as well as physically. He is agreeable for rehab placement.
ID planning on transition from IV antifungal to oral and observe ; if no issues DC on Saturday from the ID standpoint. QTc to be followed with a switch to fluconazole.
Right arm swelling and ultrasound positive for PICC line associated DVT extending from basalic vein to axillary to subclavian vein. Will discontinue the PICC line and start on Eliquis with a loading dose. He would require at least 1 month of
anticoagulation. Consider rest of the IV antifungal through peripheral line.
Discussed with at bedside.
[2024-02-10] MEDS: D5W 50 IV ×2 (16:00→18:08)
[2024-02-10] MEDS: AMBISOME 150 MG IV (16:00)
--- NOTE | 2024-02-10 16:30 | CON.MD ---
Documented by User: Siria Patel PA-C 02/11/24 08:54
Consultation - Medical
-
Referring Provider: Bernard Norman
Chief Complaint: CVA, Debiity
History of Present Illness: 78 yr. old male with h/o lightheadedness confusion and ataxia since November 2023. 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 Had worsening mental status on 02/02, then
overnight on 02/03-02/04 developed R sided weakness and neglect during an episode of hypotension.
-MRI brain 01/26/24: No MRI evidence for acute infarct or intracranial hemorrhage. 4 mm chronic lacunar infarct in the inferior right basal ganglia. Mild white matter leukoaraiosis in the frontal and parietal lobes. Mild to moderate diffuse cerebral
and cerebellar volume loss. Mild paranasal sinus mucosal disease.
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 3.1 mm anterolisthesis of C4 on C5 secondary to severe left-sided facet joint arthrosis. Moderate-sized central disc herniation at C4/C5 causing mild
spinal cord compression and central canal stenosis. Mild spinal cord compression and central canal stenosis at C3/C4 and C6/C7 secondary to disc-osteophyte complexes. Severe bilateral neural foraminal narrowing at C6/C7. Severe left neural foraminal
narrowing at C4/C5. 3.3 mm anterolisthesis of C7 on T1. Severe calcific atherosclerotic plaque in the proximal left internal carotid artery. Multiple left-sided thyroid nodules.
-MRI Lumbar Spine 01/28/24: There is multilevel degenerative disc disease and facet arthropathy with superimposed endplate degenerative edema at L3-L4. There is resultant multilevel spinal canal or neuroforaminal narrowing most pronounced at L3-L4
L4-L5 where there is mild canal stenosis and mild/moderate neuroforaminal narrowing.
-EEG 01/28/24: Moderately abnormal study for age based on bursts of frontally predominant rhythmic lateralized delta activity with single episode of generalization, not clearly epileptiform. No seizures were recorded.
-repeat LP showed opening pressures of 13 cm of water.
-MRI brain 02/04/24:
There is a 6 mm focus of restricted diffusion within the left cerebral peduncle consistent with acute infarction.
There is mild atrophy with sequelae of mild small vessel ischemic disease, unchanged from prior.
-repeat HCT done overnight after worsening of weakness, neglect: no acute findings
-EEG, 02/04/24: diffuse slowing, no seizure
MRA head and neck results showed no significant intracranial stenosis
Past Medical History:Hypothyroidism status post thyroidectomy, chronic neck pain, arthritis, Hyperlipidemia, cervical spine degenerative joint disease, thyroid nodule, for former smoker
Procedure History: Thyroidectomy
Family History: non contributory
Social History:
Functional Level Premorbidly: Independent with all activities, weight lifts 3x/week in basement gym, walks 6 miloes /day
Functional Level Currently: Grooming�max assist, ambulation with rolling walker�mod assist of 2, transfers- max assist
Tobacco: Former smoker
Alcohol: Denies
Drug use: Denies
Lives with: spouse
24-hour assistance available: yes,
Number of floors: 2
# steps to enter: 2
# steps to second floor: does not use, lives on first
Potential First floor set up:yes
Driving: yes
Occupation: retired
�
Allergies:
Allergy/AdvReac Type Severity Reaction Status Date / Time
No Known Allergies Allergy Verified 01/25/24 14:02
Review of Systems:
Constitutional: (x) Normal _
Eye: (x) Normal _
Ear/Nose/Throat: (x) Normal _
Respiratory: (x) Normal _
Cardiovascular: (x) Normal _
Gastrointestinal: (x) Normal _
Genitourinary: (x) Normal _
Musculoskeletal: (x) Normal _
Integumentary: (x) Normal _
Neurologic: (x) cva, meningitis, dysphagia, aphasia
Psychiatric: (x) Normal _
Endocrine: (x) Normal _
Hematologic/Lymphatic: (x)
Allergic/Immunologic: (x) Normal _
Medications:
Active Current Visit Medication List
Category Date Time Status
0.9% Sodium Chloride 1000 ml [Nss] 1,000 ml Med 02/10/24 10:15 Active
IV 80 mls/hr
Acetaminophen [Tylenol Oral Solution] Med 02/04/24 20:45 Active
1,000 mg TUBE Q8HPRN PRN
Acetaminophen [Tylenol] Med 01/29/24 19:00 Active
1,000 mg PO DAILY@1500
Amphotericin B Liposome [AmBisome] 200 mg Med 02/10/24 16:00 Active
Dextrose 5%/Water 100 ml [D5w] 100 ml
IV DAILY@1600
Aspirin Chewable [Low Strength Aspirin] Med 01/26/24 08:00 Active
81 mg PO DAILY
Atorvastatin [Lipitor] Med 01/26/24 08:00 Active
20 mg PO DAILY
Dextrose 5%/Water 50 ml [D5w] 50 ml Med 02/04/24 16:00 Active
IV BID@1600,1805
Fluconazole [Diflucan] Med 02/11/24 08:00 Active
400 mg PO DAILY
Flucytosine [Ancobon] Med 02/10/24 18:00 Active
1,750 mg PO QID@0600,1200,1800,2200
Flush (0.9% Sodium Chloride) [Flush (Nss)] Med 01/28/24 18:00 Active
See Dose Instructions IV PER PROTOCOL
Heparin Med 02/04/24 00:00 Active
5,000 units SC Q8
Magnesium Oxide Med 02/07/24 20:00 Active
500 mg PO BID
Prochlorperazine [Compazine] Med 01/29/24 23:06 Active
5 mg IV Q6HPRN PRN
Sterile Water [Sterile Water For Injection] Med 02/06/24 12:00 Active
20 ml IV Q24H
Vitals:
Temp Pulse Resp BP Pulse Ox
99.1 F 57 16 125/66 97
02/10/24 15:15 02/10/24 15:15 02/10/24 15:15 02/10/24 15:15 02/10/24 15:15
Height 5 ft 11 in
Actual Weight 67.642 kg
Body Mass Index (BMI) 20.8
Physical Exam:
General Appearance/Observation: Well-developed, well-nourished individual in no apparent distress.
Pain/Comfort Assessment: Denies
Mood/Affect: somewhat flat
Integumentary/Operative Site:
�� Pressure Ulcer Evaluation: absent over heels.
�
��
Eyes: Conjunctiva/Lids: normal ��� Pupils: pupils equal round and reactive to light and Accommodation
Ears/Nose/Throat: oral mucosa moist,� throat clear.������������ Lips/Teeth/Gums: normal
Neck: No muscle spasm or tenderness
Cardiovascular: Heart: regular, no murmur
Pulses: dorsalis pedis 2+ bilaterally
Respiratory: Respiratory Effort/Chest Expansion: poor effort ������� Auscultation: Clear to auscultation with diminished BS bilaterally
Gastrointestinal: abdomen not tender, no distension, normal abdominal bowel sounds
Genitourinary: No [place]oughlin
Extremities: Edema: None Cyanosis: None Trophic changes: None
Neurology Exam:
Orientation: subdued, Oriented to self, month, year, place. Needing repeating of questions before answering some of them.
Memory: impaired
Higher cortical function
Repetition: impaired
Comprehension: impaired
Two step command: slow to process, needing repetition
Naming: Intact
Cranial Nerves:
�� CNII: Pupillary light reflex: Intact��� Visual Field: impaired on the right
�� CN III, IV, : Extraocular muscles: diminished with left downgaze and right upward gaze
�� CN V: Facial Sensation at Forehead: Intact, Maxilla: Intact, Mandible: Intact
�� CN VII: Facial movement: mildly asymmetric
�� CN VIII: Hearing: Normal
�� CN IX/X: Speech & swallow: low volume Position of Uvula: Midline
�� CN XI: Shoulder shrug: asymmetric
�� CN XII: Tongue protrusion: Midline
Sensory:
�� Light touch: Intact in bilateral upper and lower extremities
��
Reflexes:
�� Biceps: 2+ bilaterally
�� Brachioradialis: 2+ bilaterally
�� Triceps: 2+ bilaterally
�� Patellar: 2+ bilaterally
�� Achilles: 2+ bilaterally
�� Babinski: Down going bilaterally
�� Clonus: None
�� Lawrence: Negative bilaterally
Cerebellar: Dysmetria/Ataxia:dysmetria bilaterally,m impaired with nose to finger coordination on right
Musculoskeletal:
Motor: (Manual muscle scale 0-5)
Muscle SA EF WE EE FF FA HF KE DF EHL PF
Right� 4 4 5 4 4 4 4 4 4
Left 5 5 5 5 5 5 5 5 5
Tone: Normal in all extremities
Range of Motion: Passively within normal limits in all extremities
Lab Results
Labs
WBC 7.8 10^3/uL (4.8-10.8) 02/10/24 05:44
RBC 3.89 10^6/uL (4.70-6.10) L 02/10/24 05:44
Hgb 13.1 g/dL (13.0-18.0) 02/10/24 05:44
Hct 36.8 % (39.0-52.0) L 02/10/24 05:44
MCV 94.6 fL (80.0-94.0) H 02/10/24 05:44
MCH 33.7 pg (27.0-31.0) H 02/10/24 05:44
MCHC 35.6 g/dL (33.0-37.0) 02/10/24 05:44
RDW 12.2 % (11.5-14.5) 02/10/24 05:44
Plt Count 191 10^3/uL (130-400) 02/10/24 05:44
MPV 9.6 fL (7.4-10.4) 02/10/24 05:44
Abs Immat Gran (auto) 0.1 10^3/uL (0-0.05) H 01/29/24 04:53
Absolute Neuts (auto) 9.9 10^3/uL (1.4-6.5) H 01/29/24 04:53
Absolute Lymphs (auto) 0.6 10^3/uL (1.2-3.4) L 01/29/24 04:53
Absolute Monos (auto) 0.6 10^3/uL (0.1-0.6) 01/29/24 04:53
Absolute Eos (auto) 0.0 10^3/uL (0-0.7) 01/29/24 04:53
Absolute Basos (auto) 0.0 10^3/uL (0-0.2) 01/29/24 04:53
CBC Comment Cancelled 01/26/24 08:00
Immature Gran % 0.4 % (0-0.5) 01/29/24 04:53
Neutrophils % 87.9 % (42.2-75.2) H 01/29/24 04:53
Lymphocytes % 5.3 % (20.5-51.1) L 01/29/24 04:53
Monocytes % 5.7 % (1.7-9.3) 01/29/24 04:53
Eosinophils % 0.3 % (0-6) 01/29/24 04:53
Basophils % 0.4 % (0-2) 01/29/24 04:53
Nucleated RBC % 0 % (-) 01/29/24 04:53
ESR 6 mm/hour (0-20) 01/26/24 13:48
PT 14.7 Sec (11.4-14.6) H 01/28/24 10:25
INR 1.14 01/28/24 10:25
pH 7.42 (7.35-7.45) 02/03/24 17:48
pCO2 39 mmHg (35-48) 02/03/24 17:48
pO2 83 mmHg (83-108) 02/03/24 17:48
HCO3 25.3 mmol/L (21-28) 02/03/24 17:48
Base Excess 0.8 mmol/L 02/03/24 17:48
ABG O2 Sat (Measured) 96.4 % (94-98) 02/03/24 17:48
Sodium 132 mMOL/L (136-145) L 02/03/24 17:48
Potassium 3.7 mMOL/L (3.5-5.1) 02/03/24 17:48
O2 Delivery Level 02/03/24 17:48
Sodium 138 mmol/L (135-145) 02/10/24 05:44
Potassium 3.5 mmol/L (3.5-5.1) 02/10/24 05:44
Chloride 99 mmol/L (98-107) 02/10/24 05:44
Carbon Dioxide 30 mmol/L (22-30) 02/10/24 05:44
BUN 30 mg/dl (9-20) H 02/10/24 05:44
Creatinine 1.4 mg/dL (0.7-1.3) H 02/10/24 05:44
Estimated Creat Clear 40 ml/min 02/10/24 05:44
eGFR 50.81 02/10/24 05:44
Glucose 98 mg/dl (70-99) 02/10/24 05:44
Hemoglobin A1c 5.4 % (4.0-5.6) 01/26/24 13:48
Calcium 9.7 mg/dl (8.4-10.2) 02/10/24 05:44
Phosphorus 3.6 mg/dl (2.5-4.5) 02/07/24 06:20
Magnesium 1.7 mg/dl (1.6-2.3) 02/10/24 05:44
Total Bilirubin 0.5 mg/dl (0.2-1.3) 02/10/24 05:44
AST 40 U/L (17-59) 02/10/24 05:44
ALT 45 U/L (0-50) 02/10/24 05:44
Alkaline Phosphatase 75 U/L (38-126) 02/10/24 05:44
Total Protein 5.5 g/dl (6.3-8.2) L 02/10/24 05:44
Albumin 3.2 g/dl (3.5-5.0) L 02/10/24 05:44
Triglycerides 86 mg/dl (10-149) 02/06/24 04:51
Total Cholesterol 108 mg/dl (50-199) 02/06/24 04:51
LDL Cholesterol, Calc 55 mg/dl 02/06/24 04:51
VLDL Cholesterol, Calc 17 mg/dl (0-30) 02/06/24 04:51
HDL Cholesterol 36 mg/dl 02/06/24 04:51
Whole Bld Vitamin B1 212 nmol/L (70-180) H 01/26/24 10:04
Vitamin B12 439 pg/ml (239-931) 01/26/24 08:00
Folate 16.7 ng/ml (2.76-20) 01/26/24 08:00
TSH 1.68 uIU/ml (0.47-4.68) 01/25/24 14:04
Free T4 1.69 ng/dl (0.78-2.19) 01/26/24 08:00
Immunoglobulin A 203 mg/dl (70-400) 02/08/24 06:36
Immunoglobulin G 578 mg/dl (700-1600) L 02/08/24 06:36
Immunoglobulin M 40 mg/dl (40-230) 02/08/24 06:36
Urine Color Yellow 02/04/24 16:33
Urine Clarity Clear (Clear) 02/04/24 16:33
Urine pH 6.0 (5.0-9.0) 02/04/24 16:33
Ur Specific [facility] 1.015 (<1.030) 02/04/24 16:33
Urine Ketones Negative (Negative) 02/04/24 16:33
Urine Occult Blood Negative (Negative) 02/04/24 16:33
Ur Occult Blood Reflex 1+ (Negative) A 01/29/24 11:50
Urine Nitrite Negative (Negative) 02/04/24 16:33
Urine Nitrite (Reflex) Negative (Negative) 01/29/24 11:50
Urine Bilirubin Negative (Negative) 02/04/24 16:33
Urine Urobilinogen Negative (Neg - 1+) 02/04/24 16:33
Ur Leukocyte Esterase Negative (Negative) 02/04/24 16:33
Leukocyte Esterase Rfl Negative (Negative) 01/29/24 11:50
Urine RBC 3-6 /HPF (0-2) A 01/29/24 11:50
Urine WBC (Reflex) 6-10 /HPF (0-5) 01/29/24 11:50
Ur Squamous Epith Cells 0-2 /LPF (Few) 01/29/24 11:50
Urine Bacteria (Reflex) Few (Negative) A 01/29/24 11:50
Hyaline Casts 6-10 /LPF (0-2) 01/29/24 11:50
Granular Casts 0-2 /LPF (0) 01/29/24 11:50
Urine Mucus Few 01/29/24 11:50
Urine Osmolality 393 mOsm/kg (300-900) 01/29/24 11:50
Urine Sodium 58 mmol/L (30-90) 01/29/24 11:50
Urine Glucose Negative (Negative) 02/04/24 16:33
Urine Albumin Negative (Neg - Trace) 02/04/24 16:33
Urine Albumin (Reflex) Negative (Neg - Trace) 01/29/24 11:50
CSF Appearance Clear 02/03/24 17:15
CSF Appearance Clear 02/03/24 17:15
CSF Color Colorless 02/03/24 17:15
CSF Color Colorless 02/03/24 17:15
CSF WBC 14 mm^3 (0-5) H* 02/03/24 17:15
CSF WBC 43 mm^3 (0-5) H* 02/03/24 17:15
CSF RBC 3 mm^3 02/03/24 17:15
CSF RBC 400 mm^3 02/03/24 17:15
CSF Cell Count Tube # 1 02/03/24 17:15
CSF Cell Count Tube # 4 02/03/24 17:15
CSF Granulocytes 3 % 02/03/24 17:15
CSF Granulocytes 5 % 02/03/24 17:15
CSF Lymphocytes 65 % 02/03/24 17:15
CSF Lymphocytes 70 % 02/03/24 17:15
CSF Macrophages 25 % 02/03/24 17:15
CSF Macrophages 32 % 02/03/24 17:15
CSF Comment 02/03/24 17:15
CSF Comment 02/03/24 17:15
CSF Glucose < 20 mg/dl (40-70) L 02/03/24 17:15
CSF Total Protein 189 mg/dl (12-60) H 02/03/24 17:15
CSF Paraneoplastic Abs Cancelled 01/28/24 13:45
CSF Paraneoplastic Abs None detected (None Detected) 01/28/24 13:45
CSF VDRL Cancelled 01/28/24 14:29
CSF C. neoformans Ag Positive (Negative) A 02/03/24 17:15
Thyroid Peroxidase Ab 0.4 IU/mL (0.0-9.0) 01/26/24 08:00
Lyme Specimen Source Cancelled 01/28/24 13:45
Lyme Specimen Source Csf 01/28/24 13:45
Lyme Screen IgG & IgM Negative (Negative) 01/27/24 10:13
Lyme Disease DNA (PCR) Cancelled 01/28/24 13:45
Lyme Disease DNA (PCR) Not detected 01/28/24 13:45
Cryptococcus Ag Positive (Negative) A 01/31/24 05:26
HIV Ag/Ab Combo Qual Negative (Negative) 01/28/24 17:25
SARS-CoV-2 Antigen Negative (Negative) 02/04/24 16:03
POC Glucose 136 mg/dl (70-99) H 02/04/24 23:28
�
Diagnostic Results: as per HPI
Assessment 78 yr. old male with h/o lightheadedness, confusion and ataxia since November 2023. 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 Had worsening mental status on 02/02, then overnight on
02/03-02/04 developed R sided weakness and neglect during an episode of hypotension.
Plan
PT/OT to increase independence with ADLs, improve balance, coordination, endurance, strength, mobility, community reintegration, decreased burden of care on others and family education.
Mental Status change:On 02/02- patient had a stroke alert called for weakness in left arm, dysphagia, and dysarthria
- Emergency CT scan (02/02)- showed negative findings for stroke
- On physical exam (02/04) does not respond to verbal stimulus, not oriented to time/place, strength is normal, reflexes are normal, negative pronator drift
- He had a LP with opening pressure performed and the opening pressure was 13 compared to 25 on the previous lumbar puncture.
- CSF cryptococcal antigen test showed wbc of 43, glucose <20, protein 189 which is consistent with infection in the csf.
- ID, neurology, nephrology, hr business partner consultant are on board
- Neurology added Keppra 1g IV q12 (02/03)- seizure prophylaxes
- MRA head neck ordered by neurology (02/03)- still pending
- Head CT (02/04)- shows no new intracranial abnormality
(02/05)- continue feeding tube Jevity 1.5, patient can also start IDDSI level 6 soft bite diet and thin liquids, will not be able to meet nutritional needs on oral intake alone
- On Levophed as needed to maintain Systolic blood pressure between 120-140.
MRA head -no vessel occlusion, no aneurysm
MRA neck�Plaque at the bilateral ICA origin, left greater than right. Less than 50% estimated luminal diameter reduction on the right. Approximately 50% luminal diameter reduction on the left
Fungal meningitis:Fungal Meningitis - cryptococcal. Continue Amphotericin, flucytosine through 02/10/2024. Repeat lumbar puncture on 02/10/2024 for clearance. Blood culture (02/01)- gram stain of blood culture reveals budding yeast
- Renal u/s (02/01)- showed renal cysts and prostatomegaly extending into the bladder base
- Repeat blood cultures (02/04)- no growth seen
-CSF 02/02 finalized negative
(02/09) Per ID- will switch to fluconazole dose at 400 mg PO qday for 6 weeks then will decrease to 200 mg PO qday for another 11 months. OP follow up in 6 weeks. Mildly low IgG - follow up with immunology outpatient.
-daily mag levels, K, Ca, Na. pretreatment with tylenol and PRN for rigors.
Repeat lumbar puncture- scheduled for for clearance
(02/09) Complement c4- 21.4-wnl
Generalized weakness
- no evidence of current infection
-chest xray- normal
- UA is normal
-COVID-negative
Heart murmur:echocardiogram normal (02/04)- shows no vegetations and a LVEF of 65-70%
CVA:left cerebral peduncle acute infarction- Developed symptoms during episode of hypotension. Cont PT/OT/Speech. Aspirin 81mg qd, atorvastatin 20mg.avoid further episodes of hypotension; goal SBP 120-140
Right Hemiparesis:: High risk for falls and sliding out of chair/bed. Safety reinforced.
- Avoid using affected arm to help lift or pull patient as this will cause trauma to the shoulder.
Right sided neglect: Needs help with scanning the environment.
Aphasia: Speech evaluation
Dysphagia: Speech evaluation
Hyponatremia: replenish as needed. Cont nephrology care
Hypokalemia: 3.5
WAI on CKD : bun 30, cr 1.4-IVF
HLD: continue atorvastatin
Thyroid nodule
-Patient had been discharged by endocrinology
-Nodule biopsy in 23 was negative for any malignancy
-TSH/FT4 WNL
Anemia: Likely multifactorial.� Continue to monitor.
Psych: Psychology consult.� Monitor mood, adjust medications as needed.
Skin: monitor for pressure sores/rashes/lesions.
Pain: acetaminophen 1000mg qd.
Bowel: Colace and Senna, PRN bisacodyl.
Bladder: Time void, PVRs, PRN straight cath.
GI Prophylaxis: Pantoprazole
RUE DVT: ultrasound positive for PICC line associated DVT extending from right basalic vein to axillary to subclavian vein. e the PICC line to be discontinued. Eliquis 10mg bid x 1 month
Pulmonary: Incentive spirometry
Safety: Continue to reinforce assistance with all transfers.
Code Status:� Full code
Dispo (date/plan/equipment needs): Home with family care.� Social history reviewed.
Functional and Medical Goals: Modified Independent with ADL�s, ambulation, transfers
Discharge Destination: Acute inpatient rehabilitation once Patient and QTc have been sufficiently observed with transition from IV antifungal to oral fluconazole and patient has been medically stable and cleared by infectious and cardiology prior
to discharge.
Summary of recommendations: Acute inpatient rehabilitation for PT/OT to increase independence with ADLs, improve balance, coordination, endurance, strength, mobility, community reintegration, decreased burden of care on others and family education.
CVA: left cerebral peduncle acute infarction- Developed symptoms during episode of hypotension. Cont PT/OT/Speech. Aspirin 81mg qd, atorvastatin 20mg. Avoid further episodes of hypotension; goal SBP 120-140 per neuro
Right Hemiparesis:: High risk for falls and sliding out of chair/bed. Safety reinforced. Avoid using affected arm to help lift or pull patient as this will cause trauma to the shoulder.
Fungal meningitis:Fungal Meningitis - cryptococcal. Continue Amphotericin, flucytosine through 02/10/2024. Repeat lumbar puncture on 02/10/2024 for clearance. Blood culture (02/01)- gram stain reveals budding yeast
- Repeat blood cultures (02/04)- no growth seen
- Renal u/s (02/01)- showed renal cysts and prostatomegaly extending into the bladder base
-CSF 02/02 finalized negative
(02/09) Per ID- will switch to fluconazole dose at 400 mg PO qday for 6 weeks then will decrease to 200 mg PO qday for another 11 months. OP follow up in 6 weeks. Mildly low IgG - follow up with immunology outpatient.
-daily mag levels, K, Ca, Na. pretreatment with tylenol and PRN for rigors.
Repeat lumbar puncture- scheduled for for clearance
(02/09) Complement c4- 21.4-wnl
Skin: monitor for pressure sores/rashes/lesions.
Pain: acetaminophen 1000mg qd.
Bowel: Colace and Senna, PRN bisacodyl.
Bladder: Time void, PVRs, PRN straight cath.
GI Prophylaxis: Pantoprazole
RUE DVT: ultrasound positive for PICC line associated DVT extending from right basilic vein to axillary to subclavian vein. e the PICC line to be discontinued. Eliquis 10mg bid x 1 month
Pulmonary: Incentive spirometry
Safety: Continue to reinforce assistance with all transfers.
Thank you for allowing me to care for your patient. Please contact me with any questions or concerns.
This note was dictated using a voice recognition system. Please excuse any typographical errors from sales representative malt [employer]. If you believe there are any discrepancies, please notify our office.

Documented by User: Hernán Newell MD 02/11/24 12:33
Consultation - Medical
-
Referring Provider: Bernard Norman
Chief Complaint: CVA
History of Present Illness: 78 yr. old right-handed male with h/o lightheadedness confusion and ataxia since November 2023. 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 Had worsening mental status
on 02/02, then overnight on 02/03-02/04 developed R sided weakness and neglect during an episode of hypotension.
-MRI brain 01/26/24: No MRI evidence for acute infarct or intracranial hemorrhage. 4 mm chronic lacunar infarct in the inferior right basal ganglia. Mild white matter leukoaraiosis in the frontal and parietal lobes. Mild to moderate diffuse cerebral
and cerebellar volume loss. Mild paranasal sinus mucosal disease.
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 3.1 mm anterolisthesis of C4 on C5 secondary to severe left-sided facet joint arthrosis. Moderate-sized central disc herniation at C4/C5 causing mild
spinal cord compression and central canal stenosis. Mild spinal cord compression and central canal stenosis at C3/C4 and C6/C7 secondary to disc-osteophyte complexes. Severe bilateral neural foraminal narrowing at C6/C7. Severe left neural foraminal
narrowing at C4/C5. 3.3 mm anterolisthesis of C7 on T1. Severe calcific atherosclerotic plaque in the proximal left internal carotid artery. Multiple left-sided thyroid nodules.
-MRI Lumbar Spine 01/28/24: There is multilevel degenerative disc disease and facet arthropathy with superimposed endplate degenerative edema at L3-L4. There is resultant multilevel spinal canal or neuroforaminal narrowing most pronounced at L3-L4
L4-L5 where there is mild canal stenosis and mild/moderate neuroforaminal narrowing.
-EEG 01/28/24: Moderately abnormal study for age based on bursts of frontally predominant rhythmic lateralized delta activity with single episode of generalization, not clearly epileptiform. No seizures were recorded.
-repeat LP showed opening pressures of 13 cm of water.
-MRI brain 02/04/24:
There is a 6 mm focus of restricted diffusion within the left cerebral peduncle consistent with acute infarction.
There is mild atrophy with sequelae of mild small vessel ischemic disease, unchanged from prior.
-repeat HCT done overnight after worsening of weakness, neglect: no acute findings
-EEG, 02/04/24: diffuse slowing, no seizure
MRA head and neck results showed no significant intracranial stenosis
Patient with right upper extremity swelling with 02/10/2024 Doppler noting occlusive thrombus in the right subclavian, axillary and proximal basilic veins. Started on Eliquis anticoagulation for least 1 month for PICC line associated DVT, PICC line
removal.
Overall he continues to have some difficulty with processing. Also difficulty with initiation. Having bowel and bladder incontinence which is new per his . Discussed baseline with his as he is not able to provide reliable information at
this time. Spoke with dietary, has been eating better but still needs to be encouraged with initiating eating. His is very helpful with this.
Past Medical History:Hypothyroidism status post thyroidectomy, chronic neck pain, arthritis, Hyperlipidemia, cervical spine degenerative joint disease, thyroid nodule, for former smoker
Procedure History: Thyroidectomy
Family History: non contributory
Social History:
Functional Level Premorbidly: Independent with all activities, weight lifts 3x/week in basement gym, walks 6 miloes /day
Functional Level Currently: Grooming�max assist, ambulation with rolling walker�mod assist of 2, transfers- max assist
Tobacco: Former smoker
Alcohol: Denies
Drug use: Denies
Lives with: spouse
24-hour assistance available: yes,
Number of floors: 2
# steps to enter: 2
# steps to second floor: does not use, lives on first
Potential First floor set up:yes
Driving: yes
Occupation: retired
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
Allergies:
Allergy/AdvReac Type Severity Reaction Status Date / Time
No Known Allergies Allergy Verified 01/25/24 14:02
Review of Systems:
Constitutional: (x) abNormal _fatigue
Eye: (x) Normal _
Ear/Nose/Throat: (x) Normal _
Respiratory: (x) Normal _
Cardiovascular: (x) abNormal _right arm DVT on Eliquis
Gastrointestinal: (x) Normal _
Genitourinary: (x) Normal _
Musculoskeletal: (x) Normal _
Integumentary: (x) Normal _
Neurologic: (x) cva, meningitis, dysphagia, aphasia, difficulty with memory
Psychiatric: (x) Normal _
Endocrine: (x) Normal _
Hematologic/Lymphatic: (x)
Allergic/Immunologic: (x) Normal _
Medications:
Active Current Visit Medication List
Category Date Time Status
0.9% Sodium Chloride 1000 ml [Nss] 1,000 ml Med 02/10/24 10:15 Active
IV 80 mls/hr
Acetaminophen [Tylenol Oral Solution] Med 02/04/24 20:45 Active
1,000 mg TUBE Q8HPRN PRN
Acetaminophen [Tylenol] Med 01/29/24 19:00 Active
1,000 mg PO DAILY@1500
Amphotericin B Liposome [AmBisome] 200 mg Med 02/10/24 16:00 Active
Dextrose 5%/Water 100 ml [D5w] 100 ml
IV DAILY@1600
Aspirin Chewable [Low Strength Aspirin] Med 01/26/24 08:00 Active
81 mg PO DAILY
Atorvastatin [Lipitor] Med 01/26/24 08:00 Active
20 mg PO DAILY
Dextrose 5%/Water 50 ml [D5w] 50 ml Med 02/04/24 16:00 Active
IV BID@1600,1805
Fluconazole [Diflucan] Med 02/11/24 08:00 Active
400 mg PO DAILY
Flucytosine [Ancobon] Med 02/10/24 18:00 Active
1,750 mg PO QID@0600,1200,1800,2200
Flush (0.9% Sodium Chloride) [Flush (Nss)] Med 01/28/24 18:00 Active
See Dose Instructions IV PER PROTOCOL
Heparin Med 02/04/24 00:00 Active
5,000 units SC Q8
Magnesium Oxide Med 02/07/24 20:00 Active
500 mg PO BID
Prochlorperazine [Compazine] Med 01/29/24 23:06 Active
5 mg IV Q6HPRN PRN
Sterile Water [Sterile Water For Injection] Med 02/06/24 12:00 Active
20 ml IV Q24H
Vitals:
Temp Pulse Resp BP Pulse Ox
100.0 F 72 16 152/81 97
02/11/24 07:20 02/11/24 07:20 02/11/24 07:20 02/11/24 07:20 02/11/24 08:00
Height 5 ft 11 in
Actual Weight 67.642 kg
Body Mass Index (BMI) 20.8
Physical Exam:
General Appearance/Observation: Well-developed, well-nourished male in no apparent distress.
Pain/Comfort Assessment: Denies
Mood/Affect: somewhat flat
Integumentary/Operative Site:
�� Pressure Ulcer Evaluation: absent over heels.
Eyes: Conjunctiva/Lids: normal ��� Pupils: pupils equal round and reactive to light and Accommodation
Ears/Nose/Throat: oral mucosa moist,� throat clear.������������ Lips/Teeth/Gums: normal
Neck: No muscle spasm or tenderness
Cardiovascular: Heart: regular, systolic murmur
Pulses: dorsalis pedis 2+ bilaterally
Respiratory: Respiratory Effort/Chest Expansion: Normal effort������� auscultation: Clear to auscultation bilaterally
Gastrointestinal: abdomen not tender, no distension, normal abdominal bowel sounds
Genitourinary: No Coughlin
Extremities: Edema: Mild right upper extremity edema cyanosis: None Trophic changes: None
Neurology Exam:
Orientation: Alert, oriented to self, month, year, place. Needing repeating of questions before answering some of them. Off by 1 day for day of the week
Memory: impaired
Repetition: impaired
Comprehension: impaired
Two step command: slow to process, needing repetition
Naming: Intact
Cranial Nerves:
�� CNII: Pupillary light reflex: Intact��� Visual Field: impaired with binocular vision, intact with monocular vision
�� CN III, IV, : Extraocular muscles: Intact
�� CN V: Facial Sensation at Forehead: Intact, Maxilla: Intact, Mandible: Intact
�� CN VII: Facial movement: mildly decreased right lower face
�� CN VIII: Hearing: Normal
�� CN IX/X: Speech & swallow: low volume, dysphagia diet position of Uvula: Midline
�� CN XI: Shoulder shrug: Decreased on right
�� CN XII: Tongue protrusion: Midline
Sensory:
�� Light touch: Intact in bilateral upper and lower extremities, no extinction to double simultaneous stimulation
��
Reflexes:
�� Biceps: 2+ bilaterally
�� Brachioradialis: 2+ bilaterally
�� Triceps: 2+ bilaterally
�� Patellar: 2+ bilaterally
�� Achilles: 2+ bilaterally
�� Babinski: Down going bilaterally
�� Clonus: None
�� Lawrence: Negative bilaterally
Cerebellar: Dysmetria/Ataxia:dysmetria bilaterally appears to be vision related, mild ataxia on right
Musculoskeletal: Motor: (Manual muscle scale 0-5)
Muscle SA EF WE EE FF FA HF KE DF EHL PF
Right� 4 4 5 4 4 4 4 4 4
Left 5 5 5 5 5 5 5 5 5
Tone: Normal in all extremities
Range of Motion: Passively within normal limits in all extremities
Lab Results
Labs
WBC 7.8 10^3/uL (4.8-10.8) 02/10/24 05:44
RBC 3.89 10^6/uL (4.70-6.10) L 02/10/24 05:44
Hgb 13.1 g/dL (13.0-18.0) 02/10/24 05:44
Hct 36.8 % (39.0-52.0) L 02/10/24 05:44
MCV 94.6 fL (80.0-94.0) H 02/10/24 05:44
MCH 33.7 pg (27.0-31.0) H 02/10/24 05:44
MCHC 35.6 g/dL (33.0-37.0) 02/10/24 05:44
RDW 12.2 % (11.5-14.5) 02/10/24 05:44
Plt Count 191 10^3/uL (130-400) 02/10/24 05:44
MPV 9.6 fL (7.4-10.4) 02/10/24 05:44
Abs Immat Gran (auto) 0.1 10^3/uL (0-0.05) H 01/29/24 04:53
Absolute Neuts (auto) 9.9 10^3/uL (1.4-6.5) H 01/29/24 04:53
Absolute Lymphs (auto) 0.6 10^3/uL (1.2-3.4) L 01/29/24 04:53
Absolute Monos (auto) 0.6 10^3/uL (0.1-0.6) 01/29/24 04:53
Absolute Eos (auto) 0.0 10^3/uL (0-0.7) 01/29/24 04:53
Absolute Basos (auto) 0.0 10^3/uL (0-0.2) 01/29/24 04:53
CBC Comment Cancelled 01/26/24 08:00
Immature Gran % 0.4 % (0-0.5) 01/29/24 04:53
Neutrophils % 87.9 % (42.2-75.2) H 01/29/24 04:53
Lymphocytes % 5.3 % (20.5-51.1) L 01/29/24 04:53
Monocytes % 5.7 % (1.7-9.3) 01/29/24 04:53
Eosinophils % 0.3 % (0-6) 01/29/24 04:53
Basophils % 0.4 % (0-2) 01/29/24 04:53
Nucleated RBC % 0 % (-) 01/29/24 04:53
ESR 6 mm/hour (0-20) 01/26/24 13:48
PT 14.7 Sec (11.4-14.6) H 01/28/24 10:25
INR 1.14 01/28/24 10:25
pH 7.42 (7.35-7.45) 02/03/24 17:48
pCO2 39 mmHg (35-48) 02/03/24 17:48
pO2 83 mmHg (83-108) 02/03/24 17:48
HCO3 25.3 mmol/L (21-28) 02/03/24 17:48
Base Excess 0.8 mmol/L 02/03/24 17:48
ABG O2 Sat (Measured) 96.4 % (94-98) 02/03/24 17:48
Sodium 132 mMOL/L (136-145) L 02/03/24 17:48
Potassium 3.7 mMOL/L (3.5-5.1) 02/03/24 17:48
O2 Delivery Level 02/03/24 17:48
Sodium 138 mmol/L (135-145) 02/10/24 05:44
Potassium 3.5 mmol/L (3.5-5.1) 02/10/24 05:44
Chloride 99 mmol/L (98-107) 02/10/24 05:44
Carbon Dioxide 30 mmol/L (22-30) 02/10/24 05:44
BUN 30 mg/dl (9-20) H 02/10/24 05:44
Creatinine 1.4 mg/dL (0.7-1.3) H 02/10/24 05:44
Estimated Creat Clear 40 ml/min 02/10/24 05:44
eGFR 50.81 02/10/24 05:44
Glucose 98 mg/dl (70-99) 02/10/24 05:44
Hemoglobin A1c 5.4 % (4.0-5.6) 01/26/24 13:48
Calcium 9.7 mg/dl (8.4-10.2) 02/10/24 05:44
Phosphorus 3.6 mg/dl (2.5-4.5) 02/07/24 06:20
Magnesium 1.7 mg/dl (1.6-2.3) 02/10/24 05:44
Total Bilirubin 0.5 mg/dl (0.2-1.3) 02/10/24 05:44
AST 40 U/L (17-59) 02/10/24 05:44
ALT 45 U/L (0-50) 02/10/24 05:44
Alkaline Phosphatase 75 U/L (38-126) 02/10/24 05:44
Total Protein 5.5 g/dl (6.3-8.2) L 02/10/24 05:44
Albumin 3.2 g/dl (3.5-5.0) L 02/10/24 05:44
Triglycerides 86 mg/dl (10-149) 02/06/24 04:51
Total Cholesterol 108 mg/dl (50-199) 02/06/24 04:51
LDL Cholesterol, Calc 55 mg/dl 02/06/24 04:51
VLDL Cholesterol, Calc 17 mg/dl (0-30) 02/06/24 04:51
HDL Cholesterol 36 mg/dl 02/06/24 04:51
Whole Bld Vitamin B1 212 nmol/L (70-180) H 01/26/24 10:04
Vitamin B12 439 pg/ml (239-931) 01/26/24 08:00
Folate 16.7 ng/ml (2.76-20) 01/26/24 08:00
TSH 1.68 uIU/ml (0.47-4.68) 01/25/24 14:04
Free T4 1.69 ng/dl (0.78-2.19) 01/26/24 08:00
Immunoglobulin A 203 mg/dl (70-400) 02/08/24 06:36
Immunoglobulin G 578 mg/dl (700-1600) L 02/08/24 06:36
Immunoglobulin M 40 mg/dl (40-230) 02/08/24 06:36
Urine Color Yellow 09/10/24 16:33
Urine Clarity Clear (Clear) 02/04/24 16:33
Urine pH 6.0 (5.0-9.0) 02/04/24 16:33
Ur Specific [facility] 1.015 (<1.030) 02/04/24 16:33
Urine Ketones Negative (Negative) 02/04/24 16:33
Urine Occult Blood Negative (Negative) 02/04/24 16:33
Ur Occult Blood Reflex 1+ (Negative) A 01/29/24 11:50
Urine Nitrite Negative (Negative) 02/04/24 16:33
Urine Nitrite (Reflex) Negative (Negative) 01/29/24 11:50
Urine Bilirubin Negative (Negative) 02/04/24 16:33
Urine Urobilinogen Negative (Neg - 1+) 02/04/24 16:33
Ur Leukocyte Esterase Negative (Negative) 02/04/24 16:33
Leukocyte Esterase Rfl Negative (Negative) 01/29/24 11:50
Urine RBC 3-6 /HPF (0-2) A 01/29/24 11:50
Urine WBC (Reflex) 6-10 /HPF (0-5) 01/29/24 11:50
Ur Squamous Epith Cells 0-2 /LPF (Few) 01/29/24 11:50
Urine Bacteria (Reflex) Few (Negative) A 01/29/24 11:50
Hyaline Casts 6-10 /LPF (0-2) 01/29/24 11:50
Granular Casts 0-2 /LPF (0) 01/29/24 11:50
Urine Mucus Few 01/29/24 11:50
Urine Osmolality 393 mOsm/kg (300-900) 01/29/24 11:50
Urine Sodium 58 mmol/L (30-90) 01/29/24 11:50
Urine Glucose Negative (Negative) 02/04/24 16:33
Urine Albumin Negative (Neg - Trace) 02/04/24 16:33
Urine Albumin (Reflex) Negative (Neg - Trace) 01/29/24 11:50
CSF Appearance Clear 02/03/24 17:15
CSF Appearance Clear 02/03/24 17:15
CSF Color Colorless 02/03/24 17:15
CSF Color Colorless 02/03/24 17:15
CSF WBC 14 mm^3 (0-5) H* 02/03/24 17:15
CSF WBC 43 mm^3 (0-5) H* 02/03/24 17:15
CSF RBC 3 mm^3 02/03/24 17:15
CSF RBC 400 mm^3 02/03/24 17:15
CSF Cell Count Tube # 1 02/03/24 17:15
CSF Cell Count Tube # 4 02/03/24 17:15
CSF Granulocytes 3 % 02/03/24 17:15
CSF Granulocytes 5 % 02/03/24 17:15
CSF Lymphocytes 65 % 02/03/24 17:15
CSF Lymphocytes 70 % 02/03/24 17:15
CSF Macrophages 25 % 02/03/24 17:15
CSF Macrophages 32 % 02/03/24 17:15
CSF Comment 02/03/24 17:15
CSF Comment 02/03/24 17:15
CSF Glucose < 20 mg/dl (40-70) L 02/03/24 17:15
CSF Total Protein 189 mg/dl (12-60) H 02/03/24 17:15
CSF Paraneoplastic Abs Cancelled 01/28/24 13:45
CSF Paraneoplastic Abs None detected (None Detected) 01/28/24 13:45
CSF VDRL Cancelled 01/28/24 14:29
CSF C. neoformans Ag Positive (Negative) A 02/03/24 17:15
Thyroid Peroxidase Ab 0.4 IU/mL (0.0-9.0) 01/26/24 08:00
Lyme Specimen Source Cancelled 01/28/24 13:45
Lyme Specimen Source Csf 01/28/24 13:45
Lyme Screen IgG & IgM Negative (Negative) 01/27/24 10:13
Lyme Disease DNA (PCR) Cancelled 01/28/24 13:45
Lyme Disease DNA (PCR) Not detected 01/28/24 13:45
Cryptococcus Ag Positive (Negative) A 01/31/24 05:26
HIV Ag/Ab Combo Qual Negative (Negative) 01/28/24 17:25
SARS-CoV-2 Antigen Negative (Negative) 02/04/24 16:03
POC Glucose 136 mg/dl (70-99) H 02/04/24 23:28
�
Diagnostic Results: as per HPI
Assessment 78 yr. old R-handed M with h/o lightheadedness, confusion and ataxia since November 2023. 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 Had worsening mental status on 02/02, then
overnight on 02/03-02/04 developed R sided weakness and neglect during an episode of hypotension--- resulting in ADL, ambulatory, speech, and swallow dysfunction.
Plan
PT/OT to increase independence with ADLs, improve balance, coordination, endurance, strength, mobility, community reintegration, decreased burden of care on others and family education.
Mental Status change: 02/02- patient had a stroke alert called for weakness in left arm, dysphagia, and dysarthria
- Emergency CT scan (02/02)- showed negative findings for stroke
- On physical exam (02/04) does not respond to verbal stimulus, not oriented to time/place, strength is normal, reflexes are normal, negative pronator drift
- He had a LP with opening pressure performed and the opening pressure was 13 compared to 25 on the previous lumbar puncture.
- CSF cryptococcal antigen test showed wbc of 43, glucose <20, protein 189 which is consistent with infection in the csf.
- Neurology added Keppra 1g IV q12 (02/03)- seizure prophylaxes
- Head CT (02/04)- shows no new intracranial abnormality
(02/05)- continue feeding tube Jevity 1.5, patient can also start IDDSI level 6 soft bite diet and thin liquids, will not be able to meet nutritional needs on oral intake alone
- On Levophed as needed to maintain Systolic blood pressure between 120-140.
MRA head -no vessel occlusion, no aneurysm
MRA neck�Plaque at the bilateral ICA origin, left greater than right. Less than 50% estimated luminal diameter reduction on the right. Approximately 50% luminal diameter reduction on the left
Fungal meningitis: Fungal Meningitis - cryptococcal. Blood culture (02/01)- gram stain of blood culture reveals budding yeast
- Renal u/s (02/01)- showed renal cysts and prostatomegaly extending into the bladder base
- Repeat blood cultures (02/04)- no growth seen
-CSF 02/02 finalized negative
Completed Amphotericin, flucytosine through 02/10/2024
(02/09) Per ID- will switch to fluconazole dose at 400 mg PO qday for 6 weeks then will decrease to 200 mg PO qday for another 11 months. OP follow up in 6 weeks. Mildly low IgG - follow up with immunology outpatient.
-daily mag levels, K, Ca, Na. pretreatment with tylenol and PRN for rigors.
Repeat lumbar puncture- scheduled for for clearance
(02/09) Complement c4- 21.4-wnl
CVA: left cerebral peduncle acute infarction- Developed symptoms during episode of hypotension. Cont PT/OT/Speech. Aspirin 81mg qd, atorvastatin 20mg. avoid further episodes of hypotension; goal SBP 120-140
Right dominant hemiparesis:: High risk for falls and sliding out of chair/bed. Safety reinforced.
Right inattention: Needs help with scanning the environment.
Aphasia: Speech
Dysphagia: Speech
Right basilic/axillary/subclavian vein DVT: On Eliquis loading dose with treatment for at least 1 month for PICC line associated DVT.
Generalized weakness
- no evidence of current infection
-chest xray- normal
- UA is normal
-COVID-negative
Heart murmur:echocardiogram normal (02/04)- shows no vegetations and a LVEF of 65-70%
Hyponatremia: Resolved
Hypokalemia: 3.5
WAI on CKD : bun 30, cr 1.4-IVF
HLD: continue atorvastatin
Thyroid nodule
-Patient had been discharged by endocrinology
-Nodule biopsy in 23 was negative for any malignancy
-TSH/FT4 WNL
Anemia: Likely multifactorial.� Continue to monitor.
Psych: Psychology consult.� Monitor mood, adjust medications as needed.
Skin: monitor for pressure sores/rashes/lesions.
Pain: acetaminophen 1000mg qd.
Bowel: Colace and Senna, PRN bisacodyl. Incontinent, time void.
Bladder: Time void, PVRs, PRN straight cath. Incontinent, time void.
GI Prophylaxis: Pantoprazole
Pulmonary: Incentive spirometry
Safety: Continue to reinforce assistance with all transfers.
Code Status:� Full code
Dispo (date/plan/equipment needs): Home with family care.� Social history reviewed.
Functional and Medical Goals: Modified Independent with ADL�s, ambulation, transfers
Discharge Destination: Acute inpatient rehabilitation once Patient and QTc have been sufficiently observed with transition from IV antifungal to oral fluconazole and patient has been medically stable and cleared by infectious and cardiology prior
to discharge.
Summary of recommendations: Acute inpatient rehabilitation for PT/OT to increase independence with ADLs, improve balance, coordination, endurance, strength, mobility, community reintegration, decreased burden of care on others and family education.
CVA: left cerebral peduncle acute infarction- Developed symptoms during episode of hypotension. Cont PT/OT/Speech. Aspirin 81mg qd, atorvastatin 20mg. Avoid further episodes of hypotension; goal SBP 120-140 per neuro
Right dominant hemiparesis:: High risk for falls and sliding out of chair/bed. Safety reinforced.
Right inattention: Needs help with scanning the environment.
Aphasia: Speech
Dysphagia: Speech
Fungal meningitis:Fungal Meningitis - cryptococcal. Continue Amphotericin, flucytosine through 02/10/2024. Repeat lumbar puncture on 02/10/2024 for clearance. Blood culture (02/01)- gram stain reveals budding yeast
- Repeat blood cultures (02/04)- no growth seen
- Renal u/s (02/01)- showed renal cysts and prostatomegaly extending into the bladder base
-CSF 02/02 finalized negative
(02/09) Per ID- will switch to fluconazole dose at 400 mg PO qday for 6 weeks then will decrease to 200 mg PO qday for another 11 months. OP follow up in 6 weeks. Mildly low IgG - follow up with immunology outpatient.
-daily mag levels, K, Ca, Na. pretreatment with tylenol and PRN for rigors.
Repeat lumbar puncture- ? Need for repeat LP prior to discharge
Bowel: Colace and Senna, PRN bisacodyl.
Bladder: Time void, PVRs, PRN straight cath.
RUE DVT: Eliquis 10mg bid x 1 month
Bowel: Colace and Senna, PRN bisacodyl. Incontinent, time void.
Bladder: Time void, PVRs, PRN straight cath. Incontinent, time void.
Thank you for allowing me to care for your patient. Please contact me with any questions or concerns.
Attending Statement:
I saw and examined the patient today. Reviewed care plan with patient, therapy, nursing, and physician commercial lines assistant. I agree with the above subjective and physical exam, and plan as documented by LYSSA Patel with adjustments made as necessary.
--- NOTE | 2024-02-10 16:33 | PTOTSP ---
CLINICAL BIOSTATISTICS DIRECTOR Evaluation
Quick Aphasia Battery Form 1 QAB overall score = 4.00 concerning for severe mixed aphasia impacting all language domains tested. Strongly suspect cognitive linguistic impairment and aphasia impacting severity given etiology of deficits (i.e.,
meningitis and an acute left sided stroke.) Patient with reduced sustained attention, reduced initiation, reduced short term memory with informal assessment. Therapy warranted at the acute care level and after D/C from acute care at this time.
Inpatient rehabilitation appropriate.
[2024-02-10] MEDS: ELIQUIS 10 MG PO (22:01)
[2024-02-11 02:48] VITALS: BP 161/87
[2024-02-11] MEDS: [UNRECOGNIZED DRUG - OTHER] 1750 MG PO (05:58)
[2024-02-11 06:54] LABS: ALT (SGPT) 46 U/L (0-50); AST (SGOT) 36 U/L (17-59); Albumin 3.1 g/dl (3.5-5.0); Alkaline Phosphatase 72 U/L (38-126); Blood Urea Nitrogen 32 mg/dl (9-20); Calcium 9.2 mg/dl (8.4-10.2); Carbon Dioxide 28 mmol/L (22-30); Chloride 98 mmol/L (98-107); Estimated Creatinine Clearance 43 ml/min; Glucose 99 mg/dl (70-99); Magnesium 1.6 mg/dl (1.6-2.3); Potassium 3.5 mmol/L (3.5-5.1); Sodium 138 mmol/L (135-145); Total Bilirubin 0.5 mg/dl (0.2-1.3); Total Protein 5.3 g/dl (6.3-8.2); eGFR 55.53
[2024-02-11 06:55] LABS: Hematocrit 33.6 % (39.0-52.0); Hemoglobin 11.9 g/dL (13.0-18.0); Mean Corp Hgb Conc. 35.4 g/dL (33.0-37.0); Mean Corpuscular Hgb 32.5 pg (27.0-31.0); Mean Corpuscular Volume 91.8 fL (80.0-94.0); Mean Platelet Volume 9.4 fL (7.4-10.4); Platelet Count 224 10^3/uL (130-400); Red Blood Cell Count 3.66 10^6/uL (4.70-6.10); Red Cell Dist. Width 12.1 % (11.5-14.5); White Blood Cell Count 7.8 10^3/uL (4.8-10.8)
[2024-02-11 07:20] VITALS: BP 152/81
[2024-02-11] MEDS: LOW STRENGTH ASPIRIN 81 MG PO (08:20)
[2024-02-11] MEDS: LIPITOR 20 MG PO (08:20)
[2024-02-11] MEDS: DIFLUCAN 400 MG PO (08:20)
[2024-02-11] MEDS: MAGNESIUM OXIDE 500 MG PO ×2 (08:20→19:52)
[2024-02-11] MEDS: ELIQUIS 10 MG PO ×2 (08:20→19:52)
--- NOTE | 2024-02-11 09:40 | W.PN.NEPH.PH ---
Today's Communication / Plan
-
no IVF
Assessment/Plan
-
Assessment
Hyponatremia
Fungal meningitis
Hyperlipidemia
WAI
CVA
Plan:
no IVF
encourage po will need to know he can feed himself. I would not rely on rehab to feed him
follow BMP
abx per ID
-
-
Date of Service: February 11, 2024
CC / HPI / ROS
-
Chief Complaint:
hyponatremia
History of Present Illness:
Na stable 138
on flucytocine for fungal meningitis
BP stable high
Creatinine down to 1.3
K normal 3.5
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
Review of Systems:
eats only if fed
no CP/SOB
Labs
-
Labs:
WBC 7.8 10^3/uL (4.8-10.8) 02/11/24 05:58
RBC 3.66 10^6/uL (4.70-6.10) L 02/11/24 05:58
Hgb 11.9 g/dL (13.0-18.0) L 02/11/24 05:58
Hct 33.6 % (39.0-52.0) L 02/11/24 05:58
Plt Count 224 10^3/uL (130-400) 02/11/24 05:58
Sodium 138 mmol/L (135-145) 02/11/24 05:58
Potassium 3.5 mmol/L (3.5-5.1) 02/11/24 05:58
Chloride 98 mmol/L (98-107) 02/11/24 05:58
Carbon Dioxide 28 mmol/L (22-30) 02/11/24 05:58
BUN 32 mg/dl (9-20) H 02/11/24 05:58
Creatinine 1.3 mg/dL (0.7-1.3) 02/11/24 05:58
eGFR 55.53 02/11/24 05:58
Glucose 99 mg/dl (70-99) 02/11/24 05:58
Calcium 9.2 mg/dl (8.4-10.2) 02/11/24 05:58
Phosphorus 3.6 mg/dl (2.5-4.5) 02/07/24 06:20
Albumin 3.1 g/dl (3.5-5.0) L 02/11/24 05:58
Physical Exam
-
Vital Signs:
Vital Signs
Temp Pulse Resp BP Pulse Ox
100.0 F 72 16 152/81 97
02/11/24 07:20 02/11/24 07:20 02/11/24 07:20 02/11/24 07:20 02/11/24 07:20
Cardiovascular:: Regular rate and rhythm
Respiratory:: Bilateral: Coarse
Lung Excursion:: Normal
Abdomen:: Nontender and Soft
Bowel Sounds:: Normal
Extremity Edema:: None: Bilateral:
--- NOTE | 2024-02-11 09:56 | W.PN.ID1 ---
Date of Service
Date of Service: February 11, 2024
Today's Communication
- switched to fluconazole dose at 400 mg PO qday for 6 weeks then will decrease to 200 mg PO qday for another 11 months
- EKG this afternoon
- follow clinically
Assessment / Plan
Cryptococcal meningitis (immunocompetent patient)
- 10-20% of cases are in immunocompetent (though usually elderly) individuals
- mildly low IgG - follow up with immunology outpatient
- Confirmed on antigen testing of CSF 1:15,334; crypto ag of serum 1:3518
- blood cultures 01/28 also crypto; 02/02 blood cultures x2 in progress no growth to date
- CSF 02/02 finalized negative
- repeat crag on csf 1:3850, no further trend needed
- switched to fluconazole dose at 400 mg PO qday for 6 weeks then will decrease to 200 mg PO qday for another 11 months
- EKG this afternoon
- follow clinically
����������������������������������������������������������
Chief Complaint
-: Other (cryptococcal meningitis)
Subjective / Review of Systems
remains afebrile
bp stable
no events overnight
Vital Signs / Physical Exam
Vital Signs
Vital Signs
Temp Pulse Resp BP Pulse Ox
100.0 F 72 16 152/81 97
02/11/24 07:20 02/11/24 07:20 02/11/24 07:20 02/11/24 07:20 02/11/24 07:20
Physical Exam
Constitutional: No Acute Distress
Cardiovascular: Regular Rate and S1/S2; Negative Murmur or Rub
Pulmonary: Clear and Symmetric; Negative Wheezes or Rales
Gastrointestinal: Soft, Non Tender, Non Distended and Normal Bowel Sounds
Skin: Warm and Dry; Negative Rash or Jaundice
Neurological: Awake
Objective Data
Lab Data
Lab Results
02/11/24 05:58
02/11/24 05:58
ESR 6 mm/hour (0-20) 01/26/24 13:48
PT 14.7 Sec (11.4-14.6) H 01/28/24 10:25
INR 1.14 01/28/24 10:25
Estimated Creat Clear 43 ml/min 02/11/24 05:58
Total Bilirubin 0.5 mg/dl (0.2-1.3) 02/11/24 05:58
AST 36 U/L (17-59) 02/11/24 05:58
ALT 46 U/L (0-50) 02/11/24 05:58
Alkaline Phosphatase 72 U/L (38-126) 02/11/24 05:58
Most recent labs reviewed.
Micro Results:
02/04/24 04:26 Blood Culture - Final
Blood/Venous No Growth - Final Report
02/03/24 14:04 Blood Culture - Final
Blood/Venous No Growth - Final Report
02/03/24 17:15 CSF Culture - Final
Csf No Growth After 5 Days - Final Report
Gram Stain - Final
02/05/24 12:22 Respiratory Culture - Final
Sputum Usual Respiratory Laura
Gram Stain - Final
02/05/24 11:34 Nasal Screen MRSA (PCR) - Final
Nose MRSA not detected - performed by PCR methodology.
01/29/24 11:11 Blood Culture - Final
Blood/Venous Cryptococcus neoformans
Gram Stain - Final
01/29/24 04:53 Blood Culture - Final
Blood/Venous No Growth - Final Report
01/28/24 15:35 Fungus Mold Identification - Final
Csf Cryptococcus neoformans
01/28/24 13:45 CSF Culture - Final
Csf Yeast
Gram Stain - Final
01/26/24 13:45 Acid Fast Bacilli Smear - Preliminary
Csf Acid Fast Bacilli Culture - Preliminary
01/28/24 13:45 Fungal Culture - Preliminary
Csf Yeast
01/25/24 19:50 Salmonella/Shigella Culture - Final
Feces/Stool No Salmonella, Shigella, Aeromonas or Plesiomonas species
isolated.
Campylobacter Culture - Final
No Campylobacter species isolated.
Shiga Toxin Test - Final
No E. coli Shiga Toxin 1 or 2 detected.
Stool Leukocytes - Final
01/28/24 13:45 Meningitis/Encephalitis Panel (PCR) - Final
Csf
Care Review
Plan reviewed with: Physician (Dr Parr- neurology, stroke)
[2024-02-11 12:00] VITALS: BP 148/83
[2024-02-11 13:00] VITALS: BP 151/75; PULSE 64; PULSE 67; O2SAT 96
--- NOTE | 2024-02-11 13:19 | CM ---
Addendum entered by Cara Prado 02/11/24 16:18:
Spoke with Janay from [facility]-will have bed available tomorrow.
Original Note:
Patient seen at bedside with .
IMM explained & signed. In chart.
Tentative d/c planned for tomorrow.
Spoke to Janay from [facility] regarding bed availability. She states she will call CM back.
PT recommend acute rehab
PLAN: [facility], pending bed availability. Janay to call CM back.
[2024-02-11] MEDS: NSS IV (15:06)
[2024-02-11 15:10] VITALS: BP 127/83
--- NOTE | 2024-02-11 15:42 | W.PN.UPDATE ---
Update Note
Progress Note Update
Seen and examined by me independently in collaboration with the medical clerk.
Lab data and imaging data reviewed.
Addendum as below :
No issues overnight.
Currently on oral antifungal agents. Check a EKG for QTc. If stable discharge to rehab tomorrow. Case management alerted.
--- NOTE | 2024-02-11 17:02 | W.PN.HOSP.TC ---
Today's Communication/Plan
-
f/u with physiatry
Assessment / Plan
Assessment / Plan
#Acute change in mental status with dysarthria:
Following up with showcase maker about placement in [facility] for rehab
Consulted physiatry (02/09)- pending
- On 02/02- patient had a stroke alert called for weakness in left arm, dysphagia, and dysarthria
- Emergency CT scan (02/02)- showed negative findings for stroke
- On physical exam (02/04) does not respond to verbal stimulus, not oriented to time/place, strength is normal, reflexes are normal, negative pronator drift
- He had a LP with opening pressure performed and the opening pressure was 13 compared to 25 on the previous lumbar puncture.
- CSF cryptococcal antigen test showed wbc of 43, glucose <20, protein 189 which is consistent with infection in the csf.
- ID, neurology, nephrology, transportation worker are on board
- Neurology added Keppra 1g IV q12 (02/03)- seizure prophylaxes
- MRA head neck ordered by neurology (02/03)- still pending
- [employer] recommended q1hr neurochecks with NIHSS q shift, Renally dose all medication/antifungals, Maintain SpO2 >90-94%, Replete electrolytes with K>4, Mg>2, Maintain euglycemia with goal BG 140-180
- Head CT (02/04)- shows no new intracranial abnormality
- Placed dietary consult (02/05)- continue feeding tube Jevity 1.5, patient can also start IDDSI level 6 soft bite diet and thin liquids, will not be able to meet nutritional needs on oral intake alone
- On Levophed as needed to maintain Systolic blood pressure between 120-140.
- Neurology (02/05)- continue neurochecks, nihss
Benadryl discontinued
MRA head -no vessel occlusion, no aneurysm
MRA neck�Plaque at the bilateral ICA origin, left greater than right. Less than 50% estimated luminal diameter reduction on the right. Approximately 50% luminal diameter reduction on the left
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
- Confirmed on peripheral vascular ultrasound on 02/10/24
- Ordered Eliquis 10 mg BID 1 month
#WAI on CKD
BUN, creatinine normalized
#Heart murmur:
- A murmur is heard over the aortic area on auscultation.
- echocardiogram normal (02/04)- shows no vegetations and a LVEF of 65-70%
#Fungal Meningitis - cryptococcal
EKG (02/10) QTc Int : 400 ms
as per ID- Continue Amphotericin, flucytosine through today 02/10/2024. On 02/11/2024 switch to fluconazole 400 mg PO for 6 weeks then will decrease to 200 mg POfor another 11 months. follow up with ID in 6 weeks.
Repeat lumbar puncture scheduled today 02/10/2024 for clearance.
Ordered compliment c4 test (02/10/24)
Low IgG on immunoglobulin testing- follow up immunology outpatient
Repleted potassium today.
- CT head on 01/17- no acute intracranial abnormalities
- Brain MRI 01/25- no evidence of acute infarct/bleed
- EEG ( 01/27)- no evidence of seizures recorded
- Continue Pt/OT - patients balance/ coordination is off
- Lumbar puncture showed opening pressure- 25, 20 cc of CSF collected, WBC count of 45, Lymphocytes 5%, granulocyte 1%, macrophages 44%, glucose <20, total protein 136
- continue on Amphotericin B ( 6th day), continue to monitor patient in the hospital for duration of treatment to monitor for side effect
- send out CSF test shows growth of Cryptococcus antigen (01/30)
- ID consulted (01/30)- advised to continue the current dosage of lipo amphotericin 3 mg/kg, and c/w flucytosine 25mg/kg/dose.
- Due to side effect of medication observe the daily mag, K, Ca, Na, CBC, CMP
- Blood culture (02/01)- gram stain of blood culture reveals budding yeast
- Renal u/s (02/01)- showed renal cysts and prostatomegaly extending into the bladder base
- Repeat blood cultures (02/04)- no growth seen
#Thyroid nodule
-Patient had been discharged by endocrinology
-Nodule biopsy in 23 was negative for any malignancy
-TSH/FT4 WNL
#Hyperlipidemia
-continue on atorvastatin
#Generalized weakness
- no evidence of current infection
-chest xray- normal
- UA is normal
-COVID-negative
Anticipated Discharge: 24 - 48 hours
Subjective/Interval History
-
Date of Service: February 11, 2024
No overnight events. No acute medical complaints.
Objective Data
-
Labs:
Laboratory Results
02/11/24
05:58
WBC 7.8
Hgb 11.9 L
Hct 33.6 L
Plt Count 224
Sodium 138
Potassium 3.5
Chloride 98
Carbon Dioxide 28
BUN 32 H
Creatinine 1.3
Glucose 99
Calcium 9.2
Total Bilirubin 0.5
AST 36
ALT 46
Alkaline Phosphatase 72
Vital Signs:
Vital Signs
Temp Pulse Resp BP Pulse Ox
100.7 F H 80 16 127/83 95
02/11/24 15:10 02/11/24 15:10 02/11/24 15:10 02/11/24 15:10 02/11/24 15:10
I&O
02/10/24 02/11/24 02/12/24
06:59 06:59 06:59
Intake Total 600 / 600 2560 / 2560
Output Total 850 / 850 200 / 200
Balance -250 / -250 2360 / 2360
Review of Systems
-
History Source: Patient
All other systems: Reviewed and negative
Physical Exam
-
General: Well Developed and Well Nourished
HEENT: Normocephalic and Atraumatic
Respiratory: Clear to Auscultation
Cardiac: Irregular Rhythm (heard over aortic area)
GI: Soft, Nontender and Nondistended
Musculoskeletal: No Cyanosis and No Edema
Neuro: Awake and Alert
Psych: Calm
Data Reviewed
-
Labs: Labs Reviewed by me and Discussed with Physician
[2024-02-11] MEDS: TYLENOL ORAL SOLUTION 1000 MG TUBE (17:47)
[2024-02-11 23:13] VITALS: BP 131/62
--- NOTE | 2024-02-12 03:09 | W.PN.UPDATE ---
Update Note
Progress Note Update
Unwitnessed fall, patient reported that he was going to bath room, slipped, hit his head, and elbows on the floor. Denied dizziness, headache/ pain, change of vision or losing his consciousness. Vital signs within normal level. No changes in neuro
exam. ROM within baseline for, neck, BUE and BLE. Small redness area with small skin tear on the parietal region. Patient currently on Eliquis.
- Head CT ordered, result shows No hemorrhage or other acute abnormalities.
- Will continue neuro check, bed alarm and fall precautions.
[2024-02-12 03:10] VITALS: BP 130/86
--- NOTE | 2024-02-12 03:42 | FALL ---
Description of Fall:
Pt found on the floor attempting to self transfer to the bathroom. Pt call andrews within reach at the time of fall, however pt did not call for assistance, nonskid socks on and bed within lowest position. Bed alarm plugged in at the time of fall but
did not sound at the time of fall. Alarm pad under the overlay mattress and not completely centered, which might have caused for it not to sound.
Injuries Noted:
small lump with pinpoint centered abrasion. No c/o pain or headache. No changes in LOC, NIH already ordered prior to fall and unchanged. VSS
Action Taken:
Yellow bracelet added on pt. Huddled with staff regarding insurance of proper placement of alarm pad when pt returns to bed. Head CT ordered by MEGAN. Will continue NIH scale.
Name of Provider Notified: Eulalia Newberry
--- NOTE | 2024-02-12 04:02 | DOWNTIME ---
There was a [email or web address] Downtime on 02/12/2024 from 0100 to 02/12/2024 at 0300. Downtime documentation of patient's care, including medication administrations, has been reconciled in the electronic record per guidelines. Refer to the
patient's paper chart under the miscellaneous tab to see printed paper medication records and downtime forms.
[2024-02-12 07:53] VITALS: BP 152/79
[2024-02-12 07:53] LABS: Hematocrit 36.4 % (39.0-52.0); Hemoglobin 12.9 g/dL (13.0-18.0); Mean Corp Hgb Conc. 35.4 g/dL (33.0-37.0); Mean Corpuscular Hgb 32.6 pg (27.0-31.0); Mean Corpuscular Volume 91.9 fL (80.0-94.0); Mean Platelet Volume 9.3 fL (7.4-10.4); Platelet Count 238 10^3/uL (130-400); Red Blood Cell Count 3.96 10^6/uL (4.70-6.10); Red Cell Dist. Width 12.3 % (11.5-14.5); White Blood Cell Count 8.2 10^3/uL (4.8-10.8)
[2024-02-12 08:35] LABS: ALT (SGPT) 47 U/L (0-50); AST (SGOT) 34 U/L (17-59); Albumin 3.5 g/dl (3.5-5.0); Alkaline Phosphatase 63 U/L (38-126); Blood Urea Nitrogen 30 mg/dl (9-20); Calcium 9.3 mg/dl (8.4-10.2); Carbon Dioxide 30 mmol/L (22-30); Chloride 94 mmol/L (98-107); Estimated Creatinine Clearance 47 ml/min; Glucose 89 mg/dl (70-99); Magnesium 1.7 mg/dl (1.6-2.3); Potassium 3.5 mmol/L (3.5-5.1); Sodium 137 mmol/L (135-145); Total Bilirubin 0.9 mg/dl (0.2-1.3); Total Protein 5.8 g/dl (6.3-8.2); eGFR > 60.00
[2024-02-12] MEDS: MAGNESIUM OXIDE 500 MG PO ×2 (08:44→20:17)
[2024-02-12] MEDS: ELIQUIS 10 MG PO ×2 (08:44→20:17)
[2024-02-12] MEDS: DIFLUCAN 400 MG PO (08:44)
[2024-02-12] MEDS: LIPITOR 20 MG PO (08:44)
[2024-02-12] MEDS: LOW STRENGTH ASPIRIN 81 MG PO (08:44)
--- NOTE | 2024-02-12 09:31 | PTCARENOTE ---
Antimicrobial final results received. Forwarded to Resident Kaela Patrick at 0930. Placed in chart.
[2024-02-12 11:28] VITALS: BP 149/77; PULSE 72
[2024-02-12 11:30] VITALS: BP 149/77
[2024-02-12 11:59] VITALS: BP 131/71
--- NOTE | 2024-02-12 12:50 | W.PN.ID1 ---
Date of Service
Date of Service: February 12, 2024
Today's Communication
- switched to fluconazole dose at 400 mg PO qday for 6 weeks then will decrease to 200 mg PO qday for another 11 months
- QTc remains acceptable
Assessment / Plan
Cryptococcal meningitis (immunocompetent patient)
- 10-20% of cases are in immunocompetent (though usually elderly) individuals
- mildly low IgG - follow up with immunology outpatient
- Confirmed on antigen testing of CSF 1:15,334; crypto ag of serum 1:3518
- blood cultures 01/28 also crypto; 02/02 blood cultures x2 in progress no growth to date
- CSF 02/02 finalized negative
- repeat crag on csf 1:3850, no further trend needed
- switched to fluconazole dose at 400 mg PO qday for 6 weeks then will decrease to 200 mg PO qday for another 11 months
- QTc remains acceptable
- COY for fluconazole for crypto is 8; breakpoint for resistance is 32
- follow clinically
����������������������������������������������������������
Chief Complaint
-: Other (cryptococcal meningitis)
Subjective / Review of Systems
had a fever overnight 100.7
had a fall overnight - tried to get up to the bathroom - he is typically requiring a 2 person assist
denies: headaches, sinus tenderness, sore throat, cough, sputum production, nausea, vomiting, diarrhea, dysuria, new rashes or joint pains
Vital Signs / Physical Exam
Vital Signs
Vital Signs
Temp Pulse Resp BP Pulse Ox
98.4 F 72 14 131/71 97
02/12/24 11:59 02/12/24 11:59 02/12/24 11:59 02/12/24 11:59 02/12/24 11:59
Physical Exam
Constitutional: No Acute Distress and Chronically Ill
Cardiovascular: Regular Rate and S1/S2; Negative Murmur or Rub
Pulmonary: Clear and Symmetric; Negative Wheezes or Rales
Gastrointestinal: Soft, Non Tender, Non Distended and Normal Bowel Sounds
Skin: Warm and Dry; Negative Rash or Jaundice
Neurological: Awake
Objective Data
Lab Data
Lab Results
02/12/24 06:12
02/12/24 06:12
ESR 6 mm/hour (0-20) 01/26/24 13:48
PT 14.7 Sec (11.4-14.6) H 01/28/24 10:25
INR 1.14 01/28/24 10:25
Estimated Creat Clear 47 ml/min 02/12/24 06:12
Total Bilirubin 0.9 mg/dl (0.2-1.3) 02/12/24 06:12
AST 34 U/L (17-59) 02/12/24 06:12
ALT 47 U/L (0-50) 02/12/24 06:12
Alkaline Phosphatase 63 U/L (38-126) 02/12/24 06:12
Most recent labs reviewed.
Micro Results:
02/04/24 04:26 Blood Culture - Final
Blood/Venous No Growth - Final Report
02/03/24 14:04 Blood Culture - Final
Blood/Venous No Growth - Final Report
02/03/24 17:15 CSF Culture - Final
Csf No Growth After 5 Days - Final Report
Gram Stain - Final
02/05/24 12:22 Respiratory Culture - Final
Sputum Usual Respiratory Laura
Gram Stain - Final
02/05/24 11:34 Nasal Screen MRSA (PCR) - Final
Nose MRSA not detected - performed by PCR methodology.
01/29/24 11:11 Blood Culture - Final
Blood/Venous Cryptococcus neoformans
Gram Stain - Final
01/29/24 04:53 Blood Culture - Final
Blood/Venous No Growth - Final Report
01/28/24 15:35 Fungus Mold Identification - Final
Csf Cryptococcus neoformans
01/28/24 13:45 CSF Culture - Final
Csf Yeast
Gram Stain - Final
01/26/24 13:45 Acid Fast Bacilli Smear - Preliminary
Csf Acid Fast Bacilli Culture - Preliminary
01/28/24 13:45 Fungal Culture - Preliminary
Csf Yeast
01/25/24 19:50 Salmonella/Shigella Culture - Final
Feces/Stool No Salmonella, Shigella, Aeromonas or Plesiomonas species
isolated.
Campylobacter Culture - Final
No Campylobacter species isolated.
Shiga Toxin Test - Final
No E. coli Shiga Toxin 1 or 2 detected.
Stool Leukocytes - Final
01/28/24 13:45 Meningitis/Encephalitis Panel (PCR) - Final
Csf
Care Review
Plan reviewed with: Physician (Dr Norman - [facility] cryptococcus)
--- NOTE | 2024-02-12 14:54 | W.PN.HOSP.TC ---
Addendum entered and electronically signed by Bernard Norman MD 02/12/24 17:03:
seen and examined by me independently in collaboration with the nuclear medical tech.
Lab data and imaging data reviewed.
Addendum as below :
Had a mechanical fall last night. He was on bed alarm which didnt work.
No obvious external trauma. CT head neg.
HD stable today and no fevers.
Tolerating diet.
QTc noted -dw ID today -cw fluconazole
Ok for tx to [facility].
DW at bedside.
Original Note:
Today's Communication/Plan
-
prepare patient for discharge tomorrow
Assessment / Plan
Assessment / Plan
#Acute change in mental status with dysarthria:
Pt had an unwitnessed fall today, hit his head, urgent follow up CT scan was normal for any intracranial abnormalities (02/11)
Was orginally supposed to be discharged to [facility] today but Physiatry recommends that before he is admitted tomorrow to [facility], that he rests for 24 hours (02/11)
Currently working with PT/OT on regaining mobility, they recommend acute rehab more than 3 hours a day
- On 02/02- patient had a stroke alert called for weakness in left arm, dysphagia, and dysarthria
- Emergency CT scan (02/02)- showed negative findings for stroke
- On physical exam (02/04) does not respond to verbal stimulus, not oriented to time/place, strength is normal, reflexes are normal, negative pronator drift
- He had a LP with opening pressure performed and the opening pressure was 13 compared to 25 on the previous lumbar puncture.
- CSF cryptococcal antigen test showed wbc of 43, glucose <20, protein 189 which is consistent with infection in the csf.
- ID, neurology, nephrology, valet parker are on board
- Neurology added Keppra 1g IV q12 (02/03)- seizure prophylaxes
- MRA head neck ordered by neurology (02/03)- still pending
- [employer] recommended q1hr neurochecks with NIHSS q shift, Renally dose all medication/antifungals, Maintain SpO2 >90-94%, Replete electrolytes with K>4, Mg>2, Maintain euglycemia with goal BG 140-180
- Head CT (02/04)- shows no new intracranial abnormality
- Placed dietary consult (02/05)- continue feeding tube Jevity 1.5, patient can also start IDDSI level 6 soft bite diet and thin liquids, will not be able to meet nutritional needs on oral intake alone
- On Levophed as needed to maintain Systolic blood pressure between 120-140.
- Neurology (02/05)- continue neurochecks, nihss
Benadryl discontinued
MRA head -no vessel occlusion, no aneurysm
MRA neck�Plaque at the bilateral ICA origin, left greater than right. Less than 50% estimated luminal diameter reduction on the right. Approximately 50% luminal diameter reduction on the left
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
- Confirmed on peripheral vascular ultrasound on 02/10/24
- Ordered Eliquis 10 mg BID 1 month
#WAI on CKD
BUN, creatinine normalized
#Heart murmur:
- A murmur is heard over the aortic area on auscultation.
- echocardiogram normal (02/04)- shows no vegetations and a LVEF of 65-70%
#Fungal Meningitis - cryptococcal
EKG (02/10) QTc Int : 400 ms
as per ID- Continue Amphotericin, flucytosine through today 02/10/2024. On 02/11/2024 switch to fluconazole 400 mg PO for 6 weeks then will decrease to 200 mg POfor another 11 months. follow up with ID in 6 weeks.
Repeat lumbar puncture scheduled today 02/10/2024 for clearance.
Ordered compliment c4 test (02/10/24)
Low IgG on immunoglobulin testing- follow up immunology outpatient
Repleted potassium today.
- CT head on 01/17- no acute intracranial abnormalities
- Brain MRI 01/25- no evidence of acute infarct/bleed
- EEG ( 01/27)- no evidence of seizures recorded
- Lumbar puncture showed opening pressure- 25, 20 cc of CSF collected, WBC count of 45, Lymphocytes 5%, granulocyte 1%, macrophages 44%, glucose <20, total protein 136
- continue on Amphotericin B ( 6th day), continue to monitor patient in the hospital for duration of treatment to monitor for side effect
- send out CSF test shows growth of Cryptococcus antigen (01/30)
- ID consulted (01/30)- advised to continue the current dosage of lipo amphotericin 3 mg/kg, and c/w flucytosine 25mg/kg/dose.
- Due to side effect of medication observe the daily mag, K, Ca, Na, CBC, CMP
- Blood culture (02/01)- gram stain of blood culture reveals budding yeast
- Renal u/s (02/01)- showed renal cysts and prostatomegaly extending into the bladder base
- Repeat blood cultures (02/04)- no growth seen
#Thyroid nodule
-Patient had been discharged by endocrinology
-Nodule biopsy in was negative for any malignancy
-TSH/FT4 WNL
#Hyperlipidemia
-continue on atorvastatin
#Generalized weakness
- no evidence of current infection
-chest xray- normal
- UA is normal
-COVID-negative
Anticipated Discharge: Within 24 hours
Subjective/Interval History
-
Date of Service: February 12, 2024
patient had fall after getting off the bed and trying to go the bathroom himself. Urgent CT scan showed no intracranial bleed.
Objective Data
-
Labs:
Laboratory Results
02/12/24
06:12
WBC 8.2
Hgb 12.9 L
Hct 36.4 L
Plt Count 238
Sodium 137
Potassium 3.5
Chloride 94 L
Carbon Dioxide 30
BUN 30 H
Creatinine 1.2
Glucose 89
Calcium 9.3
Total Bilirubin 0.9
AST 34
ALT 47
Alkaline Phosphatase 63
Vital Signs:
Vital Signs
Temp Pulse Resp BP Pulse Ox
98.4 F 72 14 131/71 97
02/12/24 11:59 02/12/24 11:59 02/12/24 11:59 02/12/24 11:59 02/12/24 11:59
I&O
02/11/24 02/12/24 02/13/24
06:59 06:59 06:59
Intake Total 2560 / 2560 780 / 780
Output Total 200 / 200
Balance 2360 / 2360 780 / 780
Review of Systems
-
History Source: Patient
All other systems: Reviewed and negative
Physical Exam
-
General: Well Developed and Well Nourished
HEENT: Normocephalic and Atraumatic
Respiratory: Clear to Auscultation
Cardiac: Murmur (heard over the aortic area )
GI: Soft, Nontender and Nondistended
Musculoskeletal: No Cyanosis and No Edema
Neuro: Awake and Alert
Psych: Calm
Data Reviewed
-
Labs: Labs Reviewed by me and Discussed with Physician
--- NOTE | 2024-02-12 15:00 | W.PN.NEPH.PH ---
Today's Communication / Plan
-
monitor off IVF
Assessment/Plan
-
Assessment
Hyponatremia
Fungal meningitis
Hyperlipidemia
WAI
CVA
DVT
Plan:
cr stable at 1.2
encourage po intake
abx per ID, changed to PO fluconazole
DVT of UE , started on AC with Tatiana
follow lab s
plan to d/c to [facility] tomorrow
-
-
Date of Service: February 12, 2024
CC / HPI / ROS
-
Chief Complaint:
hyponatremia
History of Present Illness:
Na stable 137
completed flucytocine for fungal meningitis
BP stable
Creatinine down to 1.2
K normal 3.5
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
Review of Systems:
no cp or sob
reportedly ell last night
Labs
-
Labs:
WBC 8.2 10^3/uL (4.8-10.8) 02/12/24 06:12
RBC 3.96 10^6/uL (4.70-6.10) L 02/12/24 06:12
Hgb 12.9 g/dL (13.0-18.0) L 02/12/24 06:12
Hct 36.4 % (39.0-52.0) L 02/12/24 06:12
Plt Count 238 10^3/uL (130-400) 02/12/24 06:12
Sodium 137 mmol/L (135-145) 02/12/24 06:12
Potassium 3.5 mmol/L (3.5-5.1) 02/12/24 06:12
Chloride 94 mmol/L (98-107) L 02/12/24 06:12
Carbon Dioxide 30 mmol/L (22-30) 02/12/24 06:12
BUN 30 mg/dl (9-20) H 02/12/24 06:12
Creatinine 1.2 mg/dL (0.7-1.3) 02/12/24 06:12
eGFR > 60.00 02/12/24 06:12
Glucose 89 mg/dl (70-99) 02/12/24 06:12
Calcium 9.3 mg/dl (8.4-10.2) 02/12/24 06:12
Phosphorus 3.6 mg/dl (2.5-4.5) 02/07/24 06:20
Albumin 3.5 g/dl (3.5-5.0) 02/12/24 06:12
Physical Exam
-
Vital Signs:
Vital Signs
Temp Pulse Resp BP Pulse Ox
98.4 F 72 14 131/71 97
02/12/24 11:59 02/12/24 11:59 02/12/24 11:59 02/12/24 11:59 02/12/24 11:59
Cardiovascular:: Regular rate and rhythm
Respiratory:: Bilateral: CTA
Lung Excursion:: Normal
Abdomen:: Nontender and Soft
Extremity Edema:: None: Bilateral:
Coughlin Catheter: No
[2024-02-12 22:40] VITALS: BP 140/73
[2024-02-13 07:13] LABS: Hematocrit 35.2 % (39.0-52.0); Hemoglobin 12.6 g/dL (13.0-18.0); Mean Corp Hgb Conc. 35.8 g/dL (33.0-37.0); Mean Corpuscular Hgb 33.5 pg (27.0-31.0); Mean Corpuscular Volume 93.6 fL (80.0-94.0); Mean Platelet Volume 9.1 fL (7.4-10.4); Platelet Count 244 10^3/uL (130-400); Red Blood Cell Count 3.76 10^6/uL (4.70-6.10); Red Cell Dist. Width 12.2 % (11.5-14.5); White Blood Cell Count 8.3 10^3/uL (4.8-10.8)
[2024-02-13 07:23] VITALS: BP 130/75
[2024-02-13 07:47] LABS: ALT (SGPT) 35 U/L (0-50); AST (SGOT) 27 U/L (17-59); Albumin 3.3 g/dl (3.5-5.0); Alkaline Phosphatase 63 U/L (38-126); Blood Urea Nitrogen 31 mg/dl (9-20); Calcium 9.2 mg/dl (8.4-10.2); Carbon Dioxide 30 mmol/L (22-30); Chloride 93 mmol/L (98-107); Estimated Creatinine Clearance 51 ml/min; Glucose 95 mg/dl (70-99); Potassium 3.3 mmol/L (3.5-5.1); Sodium 134 mmol/L (135-145); Total Bilirubin 0.8 mg/dl (0.2-1.3); Total Protein 5.5 g/dl (6.3-8.2); eGFR > 60.00
[2024-02-13] MEDS: MAGNESIUM OXIDE 500 MG PO (08:31)
[2024-02-13] MEDS: ELIQUIS 10 MG PO (08:32)
[2024-02-13] MEDS: LIPITOR 20 MG PO (08:32)
[2024-02-13] MEDS: DIFLUCAN 400 MG PO (08:34)
[2024-02-13] MEDS: LOW STRENGTH ASPIRIN 81 MG PO (08:34)
--- NOTE | 2024-02-13 10:11 | PTOTSP ---
HAND FILER BALANCE WHEEL Note
Patient with WFL-mild oral stage of swallowing. Advance diet and continue supervision given cognitive linguistic changes. Language skills significantly improved compared to 02/09. See patient care note for details.
Recommend:
1. Regular, IDDSI Level 0 thin liquids
2. Medications - in puree
3. Strategies: PO only when awake/alert, full supervision, assist as needed, small single sips/bites, slow rate, liquid wash to assist with oral clearance, check for oral residue, oral care 3x daily
4. Dysphagia therapy at the acute care level.
5. Language/cognitive tx at the acute care level and after D/C.
[2024-02-13 10:45] VITALS: BP 127/66; PULSE 73; O2SAT 93
[2024-02-13 11:00] VITALS: BP 127/66; PULSE 73; O2SAT 93
--- NOTE | 2024-02-13 12:03 | CM ---
Patient discharge today for [facility].
IMM explained & signed.
PLAN: Discharge to [facility]
Report # - [phone]
Fax # - [phone]
[2024-02-13 12:34] VITALS: BP 126/64
--- NOTE | 2024-02-13 12:53 | PTCARENOTE ---
Spoke with Earnest from [facility] [phone] and gave report. Patient going to room 308. Iv pulled.
--- NOTE | 2024-02-13 16:27 | W.PN.UPDATE ---
Update Note
Progress Note Update
seen and examined by me independently in collaboration with the medical consultant.
Lab data and imaging data reviewed.
Addendum as below :
at bedside. Note some to be more physically stronger. Still tolerating diet and in fact feeding himself. Still having some cognitive impairments with slight improvement.
Afebrile hemodynamically stable.
Medically stable for dc to [facility].
Total time of dc 35 min
--- NOTE | 2024-02-13 20:34 | W.DCSUMMARY ---
Discharge Summary
Discharge Data
Date of Admission: 01/25/24
Date of Discharge: 02/13/24
-
Pending Results: No
Hospital Course
78-year-old male with a past medical history of thyroid nodule, elevated cholesterol, chronic neck pain brought in by the for about 2 weeks of generalized weakness and unsteadiness. No fever, cough, chest pain, shortness of breath, nystagmus,
vertigo, dizziness, nausea, vomiting, double vision COVID-negative. No previous history of stroke. On admission to the emergency department chest x-ray showed no active cardiopulmonary disease. EKG showed normal sinus rhythm. Over the course of
his hospital stay the next few days he developed acute ataxia and dysarthria. Physical therapy/Occupational Therapy was consulted. Neurology was consulted and ordered a brain MRI which was negative. Thyroid-stimulating hormone/vitamin B12/folate
ordered and within normal limits. Lumbar puncture ordered and showed increased WBC count of 45, lymphocytes 55%, Granocyte 1%, macrophages 44%, glucose less than 20, total protein 136, opening pressure 25 mm H2O, 20 cc of CSF collected. Gram stain
of cerebrospinal fluid showed budding yeast. ID consulted emergently who started the patient on amphotericin B fluconazole. This was later confirmed on fungal culture to be cryptococcus. Complete blood count, complete metabolic panel,
electrolytes are checked and repleted as needed due to side effects of medication. Flucytosine was discontinued on 02/02/24. On 02/03/2024 rapid response stroke alert was called as patient was very lethargic with nausea and emesis. The emergency CT
scan of the head was negative. Emergency lumbar puncture was performed and opening pressure was 13 compared to 25 on the previous lumbar puncture, CSF cryptococcal antigen test showed a WBC of 43, glucose less than 20, protein 29 which is
consistent with infection of the CSF. Infectious disease neurology nephrology and carpenter apprentice are all consulted. On 02/04/2024 there is a 6 mm focus of restricted diffusion within the left cerebral peduncle consistent with acute infarction. Placed
on Keppra 1 g IV every 12 hours by neurology along with neurochecks and DVT prophylaxis. Feeding tube was also placed then later discontinued as he was able to tolerate oral intake. Levophed as needed to maintain systolic blood pressure between
120-140. Physical therapy/Occupational Therapy consulted who recommended skilled rehab for up to 3 hours a day. post stroke over next couple of days, Patient improved in neurological status parameters but not yet back to baseline. Patient is still
continued on current antifungal medications of Amphotericin and flucytosine until 02/10/2024. On 02/11/2024 fluconazole dose at 400 mg p.o. every day for 6 weeks then decrease to 200 Mg p.o. every day for another 11 months. Also recommended to
follow-up immunology outpatient as patient has a mildly low IgG levels. Follow-up EKG to assess QTc interval was normal because of the medication side effects. On 02/12 he is discharged to [facility].
Heart murmur�a heart murmur was heard on auscultation around the aortic area, an echocardiogram was ordered showed an ejection fraction of 65 to 70%. Slightly thickened and calcified aortic valve.
Acute kidney injury/ hyponatremia�creatinine has been slightly trending up. Most likely due to his medication with amphotericin B. Nephrology was consulted. Started on normal saline bolus along with medication and creatinine stabilized.
Thyroid nodule-nodule biopsy in 2019 was negative for malignancy, TSH/free T4 normal.
Discharge Plan
-
Patient Disposition: Acute Rehab Facility
Discharge Diagnosis/Procedures: Cryptococcal meningitis and bacteremia, acute cerebral peduncle ischemic infarct, WAI on CKD
Condition: Fair
Diet: Other diet
Additional Diets: IDDSI 6 soft bite sized
Activity: As tolerated
Driving Restrictions: Not until seen by your Dr
Bathing Restrictions: None
Other Services: PT and OT
Referrals:
Kingsley Rojas MD [Non-Admitting Privileges] - in three to four weeks (Mild low immunoglobulin count)
Romulo Velazquez MD [Family Provider] - in less than 1 week
Naa John MD [Active] - in one month
Prescriptions:
New
magnesium oxide 500 mg magnesium Tablet
500 mg PO BID Qty: 30 0RF
aspirin 81 mg Tablet,Chewable
81 mg PO DAILY Qty: 30 0RF
Eliquis 5 mg tablet
10 mg PO BID Qty: 1 0RF
Rx Instructions:
TILL 02/16/24 and then 5mg BID for a month
Eliquis 5 mg tablet
5 mg PO BID Qty: 1 0RF
Rx Instructions:
Start on 02/16 and treat for a month
fluconazole [Diflucan] 200 mg tablet
400 mg PO DAILY Qty: 1 0RF
Rx Instructions:
400 mg PO qday for 6 weeks then will decrease to 200 mg PO qday for another 11 months
Continued
atorvastatin 20 mg Tablet
20 mg PO DAILY Qty: 30 0RF
acetaminophen [Tylenol Extra Strength] 500 mg Tablet
1,000 mg PO Q6HPRN PRN (Reason: mild pain) Qty: 30 0RF
Discontinued
oxycodone 5 mg tablet
5 mg PO Q6HPRN PRN (Reason: Pain)
Patient Comments:
01/25/24: last filled 01/24/24 for 54 tablets over 14 days
Discharge Orders:
Discharge Patient (As Directed); Ordered 02/13/24
Ordered By: Darnell Sherwood
Discharge Date and Time
Discharge Date/Time: 02/13/24 13:21
Print Language: BELARUSIAN
[2024-02-14 13:06] LABS: CD4 % of Cells Analyzed 54 % (35-68); CD4 Absolute Count 649 cells/uL (490-1600)
== END 2024-02-13 13:21 | DRG 97 ==
LOC: 2 NORTH 18:18
PROVIDERS: Emergency Medicine; Internal Medicine Infectious Disease; Nurse Practitioner Gerontology; Radiology Diagnostic Radiology; Radiology Vascular & Interventional Radiology; Student in an Organized Health Care Education/Training Program; ADMITTING PHYSICIAN Hospitalist; ATTENDING PHYSICIAN Internal Medicine; CONSULT PHYSICIAN Physical Medicine & Rehabilitation; CONSULT PHYSICIAN Psychiatry & Neurology Neurology; CONSULT PHYSICIAN Specialist; CONSULT PHYSICIAN Student in an Organized Health Care Education/Training Program; EMERGENCY PHYSICIAN Emergency Medicine; FAMILY PHYSICIAN Internal Medicine Geriatric Medicine
PROC: 009U3ZX Drainage of Spinal Canal, Percutaneous Approach, Diagnostic (ICD-10-PCS; 2024-01-28)
PROC: 02HV33Z Insertion of Infusion Device into Superior Vena Cava, Percutaneous Approach (ICD-10-PCS; 2024-02-05)
DX: B45.1 Cerebral cryptococcosis (principal); A41.9 Sepsis, unspecified organism; I63.89 Other cerebral infarction; R65.21 Severe sepsis with septic shock; N17.9 Acute kidney failure, unspecified; G91.2 (Idiopathic) normal pressure hydrocephalus; E22.2 Syndrome of inappropriate secretion of antidiuretic hormone; G81.91 Hemiplegia, unspecified affecting right dominant side; I82.621 Acute embolism and thrombosis of deep veins of right upper extremity; I82.B11 Acute embolism and thrombosis of right subclavian vein; R41.4 Neurologic neglect syndrome; E78.00 Pure hypercholesterolemia, unspecified; E86.0 Dehydration; E87.6 Hypokalemia; R27.8 Other lack of coordination; F03.90 Unspecified dementia, unspecified severity, without behavioral disturbance, psychotic disturbance, mood disturbance, and anxiety; E89.0 Postprocedural hypothyroidism; G89.4 Chronic pain syndrome; E04.1 Nontoxic single thyroid nodule; R47.1 Dysarthria and anarthria; N18.9 Chronic kidney disease, unspecified; I12.9 Hypertensive chronic kidney disease with stage 1 through stage 4 chronic kidney disease, or unspecified chronic kidney disease; H35.033 Hypertensive retinopathy, bilateral; D64.9 Anemia, unspecified; I35.0 Nonrheumatic aortic (valve) stenosis; N40.0 Benign prostatic hyperplasia without lower urinary tract symptoms; R13.10 Dysphagia, unspecified; R32 Unspecified urinary incontinence; M50.30 Other cervical disc degeneration, unspecified cervical region; Z11.52 Encounter for screening for COVID-19; Z79.891 Long term (current) use of opiate analgesic; Z79.82 Long term (current) use of aspirin; Z87.891 Personal history of nicotine dependence
CPT/HCPCS: 36600; 62328; 70450; 70544; 70547; 70553; 71045; 71046; 72125; 72148; 74018; 76770; 80048; 80053; 80061; 81003; 81015; 82607; 82746; 82784; 82805; 82945; 82962; 83036; 83735; 83935; 84100; 84132; 84157; 84300; 84302; 84425; 84439; 84443; 85025; 85027; 85610; 85652; 86160; 86255; 86361; 86376; 86592; 86618; 87015; 87040; 87045; 87046; 87070; 87102; 87106; 87107; 87116; 87158; 87205; 87327; 87389; 87427; 87476; 87483; 87641; 87811; 88108; 89051; 89055; 92507; 92523; 92526; 92610; 93005; 93306; 93971; 95813; 95816; 96360; 97116; 97129; 97164; 97167; 97530; 97535; 99285; A9575; G0378; J0289

== ENCOUNTER 2024-02-17 14:27 | Inpatient (IN) | payer MEDICARE, SELFPAY ==
[2024-02-17] VITALS (11 sets, daily range): BP systolic 75–140; BP diastolic 64–94; BMI 19.5
[2024-02-17 10:04] LABS: Glucose - Point of Care 129 mg/dl (70-99)
--- NOTE | 2024-02-17 10:11 | ED.CVA ---
History of Present Illness
General
Chief Complaint: CVA/TIA Symptoms
Source: [facility] records
Exam Limitations: altered mental status
Time Seen by Provider: 02/17/24 10:00
Onset of Stroke Symptoms
Onset of symptoms known: Yes
Date of onset of symptoms: 02/16/24
History of Present Illness
History of Present Illness:
See MDM
Past History
Past History
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
bowel disease, BPH) and Other (cryptococcal meningitis)
ED Past Surgical History: Appendectomy and Other (Right lobe thyroid resection)
Social History
Tobacco: Other
Alcohol: Other
Drug: None
Personal:
Living: with family
Employment: Other
Family History
Family History: Other (Reviewed and noncontributory)
Phy Exam
Physical Exam
Physical Exam:
See MDM
Course
Orders/Labs/Results
Orders:
Orders
02/17/24 10:05
Electrocardiogram (*1) Urgent
Reason for Study: TIA/Stroke
EKG- Treatment ONCE
02/17/24 10:09
CT Head W/o Iv Contrast Urgent
Comment:
Reason For Exam: Confused, fever, hx cva and meningitis
02/17/24 10:10
CR Chest Portable - 1 View Urgent
Comment:
Reason For Exam: fever, confused
Reason Study Needs to be Portable: Patient Unstable
02/17/24 10:11
Blood Culture Urgent
COY Source: Blood/Venous
Specimen Description:
02/17/24 10:12
0.9% Sodium Chloride 1000 ml [Nss] 1,000 ml IV BOLUS
02/17/24 10:13
Complete Blood Count/With Diff Urgent
Comprehensive Metabolic Panel Urgent
Lactic Acid Q4H
Comment: CANCEL 2nd LACTIC ACID IF 1st LACTIC ACID IS LESS THAN 2
PTT Urgent
Prothrombin Time Urgent
Troponin I Urgent
Urinalysis Reflex To Culture Urgent
Date Specimen was Collected: 02/17/24
Time Specimen was Collected: 10:11
Blood Culture Urgent
COY Source: Blood/Venous
Specimen Description:
Influenza A+B Rapid Molecular Urgent
COY Source: Nasal Swab
Specimen Description:
02/17/24 10:45
Straight Cath As Directed
Frequency: One time now
02/17/24 11:33
Consult Infectious Disease [INFECTIOUS DISEASE CONSULT] Urgent
Consulting Provider: Naa John
Was physician already notified: Yes
02/17/24 11:45
Consult Interventional Radiology [IRAD CONSULT] Urgent
Consulting Provider: Isiah Oneil
Was physician already notified: Yes
Reason for Consult/Procedure: LP
Acknowledgement that appropriate orders are entered: Yes
Abnormal Lab Results
02/17/24 02/17/24
10:02 10:13
RBC 4.39 L 10^6/uL
(4.70-6.10)
MCH 32.6 H pg
(27.0-31.0)
Abs Immat Gran (auto) 0.1 H 10^3/uL
(0-0.05)
Absolute Neuts (auto) 7.6 H 10^3/uL
(1.4-6.5)
Absolute Monos (auto) 0.9 H 10^3/uL
(0.1-0.6)
Immature Gran % 0.8 H %
(0-0.5)
Neutrophils % 75.6 H %
(42.2-75.2)
Lymphocytes % 13.6 L %
(20.5-51.1)
PT 19.5 H Sec
(11.4-14.6)
Sodium 133 L mmol/L
(135-145)
Chloride 87 L mmol/L
(98-107)
Carbon Dioxide 32 H mmol/L
(22-30)
BUN 32 H mg/dl
(9-20)
Glucose 130 H mg/dl
(70-99)
Calcium 10.3 H mg/dl
(8.4-10.2)
POC Glucose 129 H mg/dl
(70-99)
02/17/24 10:13
02/17/24 10:13
Vital Signs
Initial and Last Documented VS:
Initial Vital Signs
Temp Pulse Resp BP Pulse Ox
98.6 F 78 18 111/66 97
02/17/24 10:02 02/17/24 10:02 02/17/24 10:02 02/17/24 10:02 02/17/24 10:02
Last Documented Vital Signs
Temp Pulse Resp BP Pulse Ox
98.6 F 70 18 114/66 96
02/17/24 10:02 02/17/24 11:30 02/17/24 10:02 02/17/24 11:03 02/17/24 10:15
MDM/Problems Addressed
Differential Diagnosis Includes:
HPI and MDM Narrative:
78-year-old male presenting for evaluation of altered mental status. He is coming from [facility]. Per nursing, he was febrile confused overnight. Patient has a complicated recent medical history. He was admitted to the hospital few weeks ago
for confusion and altered mental status. Patient was found to have a stroke and cryptococcal meningitis. Infectious diseases following. Patient was being given Amphotericin
On exam, patient is confused. I am unsure about his baseline. On exam, he has dry mucous membranes. He has bilateral strabismus. Patient appears disoriented.
Physical exam
General: Weak and fatigued, frail
HEENT: protecting airway. Bilateral strabismus
Neck: appears supple
CV: No evidence of cyanosis. Regular rate and rhythm
Resp: No accessory muscle use. Lungs clear
Abd: Non-distended and nontender
Extremities: No deformities
Neuro: alert
Psych: flat affect
Skin: Warm
Problems Addressed including Acute and Chronic Conditions affecting care:
1. Altered mental status
Acuity: acute
Prognosis: stable
Details: Given his recent history, potentially infectious versus stroke. Will obtain CT head, basic blood work, blood cultures, lactic acid and urinalysis
Updates
Infectious disease consulted and involved in the case. Infectious disease concern for cryptococcal meningitis. They are recommending repeat LP. IR made aware
Differential Diagnosis (but not limited to): Stroke, UTI, pneumonia, viral syndrome, hyponatremia
Testing considered: Respiratory viral panel
Drug therapy (if applicable): OTC meds, please see d/c instruction regarding Rx drugs
Amount and/or Complexity of Data Reviewed
Clinical info obtained from: Nursing records
External data reviewed: Recent admission for altered mental status was found to have a stroke and cryptococcal meningitis
Labs I independently reviewed (but not limited to): White blood cell count normal
Radiology: X-ray independently reviewed: Chest x-ray clear
The CT scan was personally and independently reviewed. In addition, official CT report reviewed.
Pulse Ox: not hypoxic
EKG independently reviewed: Sinus rhythm, normal axis, no STEMI, PVCs
Lead Quality Control Technician: Sinus rhythm
Critical Care: N/A
Risk of Complication:
Social Determinants of health: Good social support
Discussed with other providers: Hospitalist, infectious disease
Escalation of Care includes Admit/Obs: Given his history, will readmit for fever workup
Occasional wrong word or 'sound a like' substitutions may have occurred due to the inherent limitations of voice recognition software. Read the chart carefully and recognize, using context, where substitutions have occurred.
*Critical Care Note
Total Time (30-74mins, 75-104mins- exclusive of procedures): Not Applicable
ED Attending Note
-
Portions of this chart may have been created with voice recognition software.� Occasional wrong word or��sound alike� substitutions may have occurred due to the inherent limitations of voice recognition software.
Discharge Plan
Departure
Patient Disposition: Admit
Date of Disposition: 02/17/24
Time of Disposition: 11:48
Admit to: Med/Surg
Presentation/result/management discussed w/ accepting MD/DO: Hospitalist
Discharge Problem:
Fever
Prescriptions:
No Action
magnesium oxide 500 mg magnesium Tablet
500 mg PO BID Qty: 30 0RF
aspirin 81 mg Tablet,Chewable
81 mg PO DAILY Qty: 30 0RF
atorvastatin 20 mg Tablet
20 mg PO DAILY Qty: 30 0RF
Eliquis 5 mg tablet
5 mg PO BID Qty: 1 0RF
Rx Instructions:
Start on 02/16 and treat for a month
fluconazole [Diflucan] 200 mg tablet
400 mg PO DAILY Qty: 1 0RF
Rx Instructions:
400 mg PO qday for 6 weeks then will decrease to 200 mg PO qday for another 11 months
sennosides [Senokot] 8.6 mg Tablet
17.2 mg PO HS
acetaminophen [Tylenol] 325 mg Tablet
650 mg PO Q4HPRN PRN (Reason: mild pain)
Theragen Tablet
1 tab PO DAILY
pantoprazole [Protonix] 20 mg Tablet,Delayed Release (Dr/Ec)
20 mg PO DAILY
bisacodyl [Dulcolax (bisacodyl)] 10 mg Suppository
10 mg MD DAILYPRN PRN (Reason: constipation)
docusate sodium [Colace] 100 mg Capsule
100 mg PO BID
bisacodyl [Dulcolax (bisacodyl)] 5 mg Tablet,Delayed Release (Dr/Ec)
10 mg PO DAILYPRN PRN (Reason: constipation)
sodium chloride 1,000 mg Tablet,Soluble
1,000 mg PO DAILY
Referrals:
Romulo Velazquez MD [Family Provider] -
Interventions
Interventions:
*Risk Screen - Suicide Last Done: 02/17/24 10:02
*General Assessment Last Done: 02/17/24 10:02
*Neglect/Abuse Screening Last Done: 02/17/24 10:02
*ED COVID-19 Vaccine History Last Done: 02/17/24 10:02
ED- Pulmonary Assessment Last Done: 02/17/24 10:02
ED- Neurological Assessment Last Done: 02/17/24 10:02
ED- Cardiac Assessment Last Done: 02/17/24 10:02
Discharge Date and Time
Print Language: KISWAHILI
[2024-02-17 10:28] LABS: Urine Albumin Negative (Neg - Trace); Urine Bilirubin Negative (Negative); Urine Character Clear (Clear); Urine Color Yellow; Urine Glucose Negative (Negative); Urine Ketone Negative (Negative); Urine Leukocyte Negative (Negative); Urine Nitrite Negative (Negative); Urine Occult Blood Negative (Negative); Urine Specific Gravity 1.015 (<1.030); Urine Urobilinogen Negative (Neg - 1+)
[2024-02-17] MEDS: NSS 1000 IV (10:41)
[2024-02-17 10:46] LABS: % Basophils 0.8 % (0-2); % Eosinophils 0.7 % (0-6); % Immature Granulocytes 0.8 % (0-0.5); % Lymphocytes 13.6 % (20.5-51.1); % Monocytes 8.5 % (1.7-9.3); % Neutrophils 75.6 % (42.2-75.2); Absolute Basophils 0.1 10^3/uL (0-0.2); Absolute Eosinophils 0.1 10^3/uL (0-0.7); Absolute Immature Granulocytes 0.1 10^3/uL (0-0.05); Absolute Lymphocytes 1.4 10^3/uL (1.2-3.4); Absolute Monocytes 0.9 10^3/uL (0.1-0.6); Absolute Neutrophils 7.6 10^3/uL (1.4-6.5); Hematocrit 40.6 % (39.0-52.0); Hemoglobin 14.3 g/dL (13.0-18.0); Mean Corp Hgb Conc. 35.2 g/dL (33.0-37.0); Mean Corpuscular Hgb 32.6 pg (27.0-31.0); Mean Corpuscular Volume 92.5 fL (80.0-94.0); Nucleated Red Blood Cells % 0 % (-); Platelet Count 350 10^3/uL (130-400); Red Blood Cell Count 4.39 10^6/uL (4.70-6.10); Red Cell Dist. Width 12.1 % (11.5-14.5); White Blood Cell Count 10.1 10^3/uL (4.8-10.8)
[2024-02-17 10:52] LABS: INR 1.67; PT 19.5 Sec (11.4-14.6)
[2024-02-17 10:53] LABS: APTT 25.1 Sec (23.4-35.0)
[2024-02-17 11:00] LABS: ALT (SGPT) 31 U/L (0-50); AST (SGOT) 27 U/L (17-59); Albumin 4.4 g/dl (3.5-5.0); Alkaline Phosphatase 77 U/L (38-126); Blood Urea Nitrogen 32 mg/dl (9-20); Calcium 10.3 mg/dl (8.4-10.2); Carbon Dioxide 32 mmol/L (22-30); Chloride 87 mmol/L (98-107); Glucose 130 mg/dl (70-99); Potassium 3.6 mmol/L (3.5-5.1); Sodium 133 mmol/L (135-145); Total Bilirubin 1.1 mg/dl (0.2-1.3); Total Protein 6.9 g/dl (6.3-8.2); eGFR 55.53
[2024-02-17 11:10] LABS: Lactic Acid 1.7 mmol/L (0.7-2.0)
--- NOTE | 2024-02-17 12:40 | HPS.HSE ---
Addendum entered and electronically signed by Brooklynn Bah MD 02/17/24 17:23:
I saw and evaluated the patient independently. I reviewed the resident�s note and agree with findings and plan as documented by Dr. Woodard.
GENERAL: well developed, well nourished, male in no apparent distress
HEENT: NC/AT--no O2 requirements
HEART: regular rate and rhythm, +S1, +S2, JACK
LUNGS : clear to auscultation bilaterally
ABDOM: soft, nontender, nondistended, + bowel sounds
EXT: no cyanosis, clubbing, or edema
NEUROLOGIC:small subtle right facial droop
Febrile State -- likely Cryptococcal meningitis due to prior very recent infection--was taken off IV antifungals and started on oral fluconazole--no other source of infection noted--UA neg, CXR neg, head CT neg--apprec ID input, apprec IR for
LP---s/p LP with CSF WBC 256, glucose < 20, TP 260---will likely need restart IV antifungals
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
factors (not HIV, no cancer, no immunosuppression, no biologics)--truly unknown reason---completed liposomal amphotericin B
H/o Occlusive thrombus in subclavian, axillary and proximal basilic vein on peripheral vasc US on 02/10/24-�Hold Eliquis due to pending LP, can restart in AM
Recent stroke -- MRI showed 6mm acute stroke last admission--echocardiogram had no signs of vegetations--MRA of the head and neck were without hemodynamically significant stenosis--was accepted to [facility]--cont PT/OT/speech
Heart Murmur--Asymptomatic-� Echo on 02/04: LVEF of 65-70%, Moderate aortic stenosis. Mild aortic regurgitation.Trace tricuspid regurgitation.
Hyperlipidemia--Continue statin
WAI --last admission-resolved
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
Hyperlipidemia--cont lipitor
Thyroid nodule--followed by endocrine but apparently discharged by them--biopsy in 2022 was negative--TSH WNL
DVT prophylaxis
Code status --Full code
Original Note:
Family Physician
-
Family Physician: Romulo Velazquez
Chief Complaint
-
Confusion; Fever
History of Present Illness
This is a 78 year old male patient coming to the ER from [facility] with concerns of altered mental status and fever. He was very recently admitted to from 01/17 to 02/12 for Cryptococcal meningitis and CVA (acute ischemic stroke in the Left
cerebral peduncle). He was transferred to [facility] for rehab after recently finishing IV course of Amphotericin B and continues to be on oral fluconazole. Yesterday he appeared to have a fever and was more confused than usual since his stroke. He was
transferred to ER for possible reinfection of cryptococcal meningitis. Head CT and CXR in ER showed no significant findings. He appears to be mildly confused but his states that since his stroke/meningitis, this is his baseline. Prior to his
last admission, patient led a very active lifestyle and was able to complete his daily activities without issues.
Medical History
Past Medical History
Past Medical History: Reports CVA (left cerebral peduncle)
Additional Past Medical History:
hyperlipidemia, cervical spine degenerative joint disease, thyroid nodule (non-malignant), former smoker
Past Surgical History: Reports Appendectomy
Additional Past Surgical History:
Appendectomy, partial thyroidectomy
Social History
Tobacco: Former Smoker
Alcohol: None
Drug: None
Personal:
Family History
Family History: Not pertinent
Allergies / Home Medications
Allergies reflects when Allergies were last updated in [facility].
Home Medications with original date entered in [facility]
Allergy/Medication List:
Home Medications
�Medication �Instructions �Recorded
apixaban 5 mg tablet (Eliquis) 5 mg PO BID #1 tab 02/13/24
aspirin 81 mg chewable tablet 81 mg PO DAILY #30 tabs 02/13/24
atorvastatin 20 mg tablet 20 mg PO DAILY High Cholesterol 02/13/24
#30 tabs
fluconazole 200 mg tablet 400 mg (2 x 200 mg) PO DAILY #1 tab 02/13/24
(Diflucan)
magnesium oxide 500 mg PO BID #30 tabs 02/13/24
acetaminophen 325 mg tablet 650 mg PO Q4HPRN PRN mild pain 02/17/24
(Tylenol)
bisacodyl 10 mg rectal suppository 10 mg UT DAILYPRN PRN constipation 02/17/24
(Dulcolax (bisacodyl))
bisacodyl 5 mg tablet,delayed 10 mg PO DAILYPRN PRN constipation 02/17/24
release (Dulcolax (bisacodyl))
docusate sodium 100 mg capsule 100 mg PO BID 02/17/24
(Colace)
pantoprazole 20 mg tablet,delayed 20 mg PO DAILY 02/17/24
release (Protonix)
sennosides 8.6 mg tablet (Senokot) 17.2 mg PO HS 02/17/24
sodium chloride 1,000 mg soluble 1,000 mg PO DAILY 02/17/24
tablet
therapeutic multivitamin 1 tab PO DAILY 02/17/24
Allergies
Allergy/AdvReac Type Severity Reaction Status Date / Time
No Known Allergies Allergy Verified 01/25/24 14:02
Review of Systems
-
A 12 point ROS was completed and negative except as noted: Yes
Constitutional: Reports Fever
Cardiac: Denies Chest Pain
Abdomen/GI: Denies Abdominal Pain
Physical Exam
Vital Signs
Vital Signs
Temp Pulse Resp BP Pulse Ox
98.6 F 73 18 129/80 96
02/17/24 10:02 02/17/24 12:15 02/17/24 10:02 02/17/24 12:00 02/17/24 10:15
Physical Exam
General: No Apparent Distress
HEENT: NormoCephalic and Other (bilateral strabismus)
Respiratory: Clear
Cardiac: S1/S2 and Regular Rhythm
GI: Soft, Non Tender and Non Distended
Musculoskeletal: No Clubbing, No Cyanosis and No Edema
Skin: Warm and Dry
Neuro: Awake and Alert
Psych: Calm
Laboratory Results
-
02/17/24 10:13
02/17/24 10:13
Laboratory Results
PT 19.5 Sec (11.4-14.6) H 02/17/24 10:13
INR 1.67 02/17/24 10:13
APTT 25.1 Sec (23.4-35.0) 02/17/24 10:13
Lactic Acid Cancelled 02/17/24 14:15
Total Bilirubin 1.1 mg/dl (0.2-1.3) 02/17/24 10:13
AST 27 U/L (17-59) 02/17/24 10:13
ALT 31 U/L (0-50) 02/17/24 10:13
Alkaline Phosphatase 77 U/L (38-126) 02/17/24 10:13
Troponin I 0.030 ng/ml 02/17/24 10:13
Impression/Plan
-
IMPRESSION: This is a 78 year old male patient coming to the ER from [facility] with concerns of altered mental status and fever. He was very recently admitted to from 01/17 to 02/12 for Cryptococcal meningitis and CVA (acute ischemic stroke in the
Left cerebral peduncle).
Assessment:
Fever
Altered mental status
Occlusive thrombus in subclavian, axiallary and proximal basilic vein
Hx of cryptococcal meningitis
CVA (acute ischemic stroke in the left cerebral peduncle)
Hyperlipidemia
PLAN:
#Febrile State�? Cryptococcal meningitis due to prior very recent infection
�Head CT today: No significant findings
�Chest x-ray: No significant findings
-ID consulted, appreciated: Will send to IR for LP
-CSF orders pending
-WBC 10.1, Creatinine 1.3, lactic acid normal
-blood cultures pending
�Continue fluconazole (was previously on IV amphotericin B)
#Occlusive thrombus in subclavian, axillary and proximal basilic vein on peripheral vasc US on 02/10/24
�Hold Eliquis due to pending LP
#Heart Murmur
-Asymptomatic
� Echo on 02/04: LVEF of 65-70%, Moderate aortic stenosis. Mild aortic regurgitation.Trace tricuspid regurgitation.
#Hyperlipidemia
-Continue statin
--- NOTE | 2024-02-17 16:05 | PTCARENOTE ---
pt aao to self and month. following commands. inc of urine. bed alarm on.
[2024-02-17 16:14] LABS: CSF Color Xanthochromic; CSF Tube # 1
[2024-02-17 16:15] LABS: CSF Clarity Clear; Red Cell Count/CSF 217 mm^3
[2024-02-17 16:17] LABS: White Cell Count/CSF 292 mm^3 (0-5)
[2024-02-17 16:18] LABS: CSF Color Xanthochromic; CSF Tube # 4; CSF Tube # Clarity Clear; Red Cell Count/CSF 3 mm^3; White Blood Cell Count/CSF 256 mm^3 (0-5)
[2024-02-17] MEDS: TYLENOL 650 MG PO (16:31)
[2024-02-17 16:36] LABS: Spinal Fluid Granulocytes 25 %; Spinal Fluid Lymphocytes 45 %; Spinal Fluid Macrophages 30 %
[2024-02-17 16:37] LABS: CSF Granulocytes 34 %; CSF Lymphocytes 31 %; Spinal Fluid Macrophages 35 %
[2024-02-17 17:05] LABS: Spinal Fluid Glucose < 20 mg/dl (40-70); Spinal Fluid Protein 260 mg/dl (12-60)
--- NOTE | 2024-02-17 17:22 | CON.ID ---
Consultation
-
Date/Time Consultation Requested: 02/17/24 11:33
Date/Time Consultation Performed: 02/17/24 11:33
Requesting Provider: Dr Fox
Performing Provider: Dr John
Reason for Consultation: fever
Chief Complaint / Past History
Chief Complaint
fever
History of Present Illness
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
dysphagia, flucytosine was compounded into solution so that it could be administered via NGT.� Levels were not obtained due to the timing of switching between solution and pill placement. Initial and repeat LPs were substantially similar with wbc
low in the 40s, undetectable glucose, elevated protein, meningitis panel with negative crypto ag, CRAG 01/30 titer 1:3518 and second titer 02/02 1:3850.� Initial 01/28 CSF culture: yeast, second 02/02 CSF culture finalized negative.� The second LP was
preformed for AMS which was ultimately attributed to the acute stroke and rapidly resolved.� Stroke as 6 mm of the cerebral peduncle.� Crypto sensitivities were notable for fluconazole COY 8 (with >32 being considered resistant on my literature
review, there is no CLSI guideline available at this time), voriconazole COY was 0.12.� Patient was transitioned to fluconazole 400 mg PO qday given kiera and crcls have generally remained below or just at a crcl of 50.� QTc 400s.� Of note also with a
fall during the hospitalization without complication.
Patient transferred to [facility] where he initially did well, over the weekend with new onset of fevers to a tmax of 100.7.� ROS was notable for No Chills, No Headache, No Pharyngitis, No Cough, No Chest Pain, No Abdominal Pain, No Diarrhea and No
Dysuria.� UA, CXR, covid ag were unremarkable.� Then, today, patient with altered mental status, max assist of two at therapy, eyes not tracking.� He was sent back to the ER and ID was consulted for assistance with management.� I have requested
repeat LP with opening pressure.�
Past History
Additional Past Medical History:
cva hyperlipidemia, cervical spine degenerative joint disease, thyroid nodule (non-malignant), former smoker
Additional Past Surgical History:
Appendectomy
Allergy History:
No Known Allergies Allergy (Verified 01/25/24 14:02)
Medications Reviewed: Yes
Social History
Tobacco: Former Smoker
Alcohol: None
Drug: None
Family History
Family History: Not Pertinent
Review of Systems
Review of Systems
General: Fever and Chills
All systems: All other systems were reviewed and were negative
Vital Signs
Temp Pulse Resp BP Pulse Ox
101.5 F H 78 20 136/83 96
02/17/24 16:00 02/17/24 16:00 02/17/24 16:00 02/17/24 16:00 02/17/24 16:00
Physical Exam
Physical Exam
Constitutional: No Acute Distress
Cardiovascular: Regular Rate and S1/S2; Negative Murmur or Rub
Pulmonary: Clear and Symmetric; Negative Wheezes, Rales or Rhonchi
Gastrointestinal: Soft, Non Tender, Non Distended and Normal Bowel Sounds
Skin: Warm and Dry; Negative Rash or Jaundice
Neurological: Awake, Alert and Other (dyscongugate gaze, and anisocorio)
Lab / Diagnostic Study Results
02/17/24 10:13
02/17/24 10:13
Abs Immat Gran (auto) 0.1 10^3/uL (0-0.05) H 02/17/24 10:13
Absolute Neuts (auto) 7.6 10^3/uL (1.4-6.5) H 02/17/24 10:13
Absolute Lymphs (auto) 1.4 10^3/uL (1.2-3.4) 02/17/24 10:13
Absolute Monos (auto) 0.9 10^3/uL (0.1-0.6) H 02/17/24 10:13
Absolute Basos (auto) 0.1 10^3/uL (0-0.2) 02/17/24 10:13
Immature Gran % 0.8 % (0-0.5) H 02/17/24 10:13
Neutrophils % 75.6 % (42.2-75.2) H 02/17/24 10:13
Lymphocytes % 13.6 % (20.5-51.1) L 02/17/24 10:13
Monocytes % 8.5 % (1.7-9.3) 02/17/24 10:13
Eosinophils % 0.7 % (0-6) 02/17/24 10:13
Basophils % 0.8 % (0-2) 02/17/24 10:13
PT 19.5 Sec (11.4-14.6) H 02/17/24 10:13
INR 1.67 02/17/24 10:13
Lactic Acid Cancelled 02/17/24 14:15
Microbiology Results
Micro:
02/17/24 15:27 CSF Culture - Pending
Csf Gram Stain - Preliminary
02/17/24 15:27 Fungal Culture - Preliminary
Csf Culture in progress.
Positive cultures are reported as soon as detected.
Final report to follow in four to five weeks.
02/17/24 15:27 Meningitis/Encephalitis Panel (PCR) - Pending
Csf
02/17/24 10:13 Blood Culture - Pending
Blood/Venous
02/17/24 10:13 Influenza Types A & B (LEO) - Final
Nasal Swab Negative for Influenza A & B, NAAT
Negative results must be combined with clinical observations
and patient history.
Nucleic Acid Amplification test (NAAT)performed on the
[employer] platform.
02/17/24 10:13 Blood Culture - Pending
Blood/Venous
Assessment / Plan
Relapse of Fever
Cryptococcal Meningitis on Consolidation Therapy
AMS
- blood cultures x2 in progress
- ua negative, a urine culture was sent but without pyuria would not attribute symptoms to this result even if positive
- covid ag negative, influenza pcr was also negative
- CXR no infiltrates
- immunoglobulins: mildly low IgG at 578 last visit, IgA and IgM normal, CD4 normal
- no source of fever found thus far and with AMS today
- recommend repeat LP with opening pressure, cell count, glucose, protein, CRAG; meningitis panel with very low sensitivity for crypto and unlikely to add to workup
- so far WBC count is back - sufficient information to restart induction therapy
- restart continue flucytosine 1500 mg po increased to QID
- restart lipo ampho B now at 4 mg/kg daily
- daily mag levels, K, Ca, Na
- restart aggressive K replacement
- on scheduled mag
- avoid nephrotoxic agents as feasible
- pretreatment with tylenol and PRN for rigors
- daily pretreatment with 500 ccs NS bolus in addition to maintenance fluids
- IRIS is also possible (even in immunocompetent patients) and treatment would be steroids if csf is not consistent with relapse given the severity of his symptoms
- follow closely
Care Review
Plan reviewed with: Physician (Dr Bah - [facility])
[2024-02-17] MEDS: NSS 500 IV (17:37)
[2024-02-17] MEDS: D5W 50 IV ×2 (18:19→21:02)
[2024-02-17] MEDS: [UNRECOGNIZED DRUG - OTHER] 1500 MG PO (18:31)
[2024-02-17] MEDS: AMBISOME 212.5 MG IV (18:34)
[2024-02-17] MEDS: MAGNESIUM OXIDE 500 MG PO (21:01)
[2024-02-17] MEDS: COLACE 100 MG PO (21:01)
[2024-02-17] MEDS: SENOKOT 17.2 MG PO (21:03)
[2024-02-17] MEDS: KCL 20 MEQ PO (21:03)
[2024-02-18] MEDS: [UNRECOGNIZED DRUG - OTHER] 1500 MG PO ×4 (01:29→17:41)
[2024-02-18] MEDS: TYLENOL 650 MG PO ×3 (02:00→21:06)
[2024-02-18 06:00] VITALS: BMI 19.5
--- NOTE | 2024-02-18 07:07 | W.PN.HOSP.TC ---
Addendum entered and electronically signed by Brooklynn Bah MD 02/18/24 17:19:
I saw and evaluated the patient independently. I reviewed the resident�s note and agree with findings and plan as documented by Dr. Woodard.
GENERAL: well developed, well nourished, male in no apparent distress
HEENT: NC/AT--no O2 requirements--right facial droop
HEART: regular rate and rhythm, +S1, +S2, JACK
LUNGS : clear to auscultation bilaterally
ABDOM: soft, nontender, nondistended, + bowel sounds
EXT: no cyanosis, clubbing, or edema
NEUROLOGIC: right facial droop
Febrile State -- likely Cryptococcal meningitis due to prior very recent infection---no other source of infection noted--UA neg, CXR neg, head CT neg--apprec ID input, apprec IR for LP---s/p LP with CSF WBC 256, glucose < 20, TP 260--- restarted IV
antifungals and redid LP with opening pressure as per ID
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
factors (not HIV, no cancer, no immunosuppression, no biologics)--truly unknown reason---completed liposomal amphotericin B--now looks like relapse and started consolidation therapy with Ampho B and flucytosine
H/o Occlusive thrombus in subclavian, axillary and proximal basilic vein on peripheral vasc US on 02/10/24-�Hold Eliquis due to pending LP, can restart in AM
Recent stroke -- MRI showed 6mm acute stroke last admission--echocardiogram had no signs of vegetations--MRA of the head and neck were without hemodynamically significant stenosis--[facility]--[facility]
Heart Murmur--Asymptomatic-� Echo on 02/04: LVEF of 65-70%, Moderate aortic stenosis. Mild aortic regurgitation.Trace tricuspid regurgitation.
Hyperlipidemia--Continue statin
WAI --last admission-resolved
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
Hyperlipidemia--cont lipitor
Thyroid nodule--followed by endocrine but apparently discharged by them--biopsy in 2022 was negative--TSH WNL
DVT prophylaxis
Code status --Full code
Original Note:
Today's Communication/Plan
-
Continue antifungal treatment
Continue IVF
IR consult for LP for opening pressure pending
Assessment / Plan
Assessment / Plan
IMPRESSION: This is a 78 year old male patient [facility] concerns of altered mental status and fever. He was very recently admitted to from 01/17 to 02/12 for Cryptococcal meningitis and CVA (acute ischemic stroke in the
Left cerebral peduncle).
Assessment:
Fever
Altered mental status
Occlusive thrombus in subclavian, axillary and proximal basilic vein
Hx of cryptococcal meningitis
CVA (acute ischemic stroke in the left cerebral peduncle)
Hyperlipidemia
PLAN:
#Febrile State�Possible Cryptococcal meningitis due to prior very recent infection
�Head CT today: No significant findings
�Chest x-ray: No significant findings
-ID consulted, appreciated: Will send to IR for repeat LP for opening pressure
-Discontinued fluconazole
-WBC 10.1, Creatinine 1.3, lactic acid normal
-blood cultures- no growth
-Pt was restarted on IV amphotericin B and flucytosine on 02/16
-CSF orders: increased WBC, decreased glucose and increased total protein on 02/16
-Started maintence IVF, Already on NSS boluses due to IV amphotericin
#Occlusive thrombus in subclavian, axillary and proximal basilic vein on peripheral vasc US on 02/10/24
�Hold Eliquis due to pending LP
#Heart Murmur
-Asymptomatic
� Echo on 02/04: LVEF of 65-70%, Moderate aortic stenosis. Mild aortic regurgitation.Trace tricuspid regurgitation.
#Hyperlipidemia
-Continue statin
Anticipated Discharge: 24 - 48 hours
Subjective/Interval History
-
Date of Service: February 18, 2024
Patient does not complain of any new problems and is oriented x3 but during conversation was mildly confused at times.
Objective Data
-
Labs:
Laboratory Results
02/18/24
06:00
WBC Pending
Hgb Pending
Hct Pending
Plt Count Pending
Sodium Pending
Potassium Pending
Chloride Pending
Carbon Dioxide Pending
BUN Pending
Creatinine Pending
Glucose Pending
Calcium Pending
Total Bilirubin Pending
AST Pending
ALT Pending
Alkaline Phosphatase Pending
Vital Signs:
Vital Signs
Temp Pulse Resp BP Pulse Ox
99.8 F 81 16 136/84 95
02/18/24 02:42 02/17/24 23:22 02/17/24 23:22 02/17/24 23:22 02/17/24 23:22
I&O
02/17/24 02/18/24 02/19/24
06:59 06:59 06:59
Intake Total 480 / 480
Output Total 1525 / 1525
Balance -1045 / -1045
Review of Systems
-
All other systems: Reviewed and negative
Physical Exam
-
General: No Apparent Distress
HEENT: Normocephalic
Respiratory: Clear to Auscultation
Cardiac: Regular Rhythm and S1/S2
GI: Soft, Nontender and Nondistended
Musculoskeletal: No Clubbing and No Edema
Skin: Warm and Dry
Neuro: Awake, Alert and Oriented
Psych: Calm
[2024-02-18 07:20] VITALS: BP 148/74
--- NOTE | 2024-02-18 08:23 | W.PN.ID1 ---
Addendum entered and electronically signed by Naa John MD 02/18/24 16:57:
I saw and evaluated the patient. I reviewed the resident�s note and agree with findings and plan as documented in the resident�s note with the following additions/corrections:
S:
Started amphotericin/flucytosine overnight - no other events
alert today, responding to some questions
O:
wbc 10.7
hgb 13.9
plt 317
L shift is noted
cr 1.1 today
lactic acid 1.7
na 134 today
K 3.7
Mag 1.9
A&P:
Relapse of Fever
Cryptococcal Meningitis on Consolidation Therapy
AMS -resolved
Hyponatremia
- immunoglobulins: mildly low IgG at 578 last visit, IgA and IgM normal, CD4 normal
- LP suggestive of relapse of cryptococcal meningitis
- continue flucytosine 1500 mg po QID (note patient has lost about 4kg on multiple readings thus the dose adjustment)
- lipo ampho B now at 4 mg/kg daily
- daily mag levels, K, Ca, Na
- restart aggressive K replacement
- on scheduled mag
- avoid nephrotoxic agents as feasible
- pretreatment with tylenol and PRN for rigors
- daily pretreatment with 500 ccs NS bolus in addition to maintenance fluids
- start hydration with normal saline, follow Na closely
- prognosis remains favorable
- follow closely
Original Note:
Date of Service
Date of Service: February 18, 2024
Today's Communication
Continue amphotericin B and flucytosine.
Repeat BMP, CBC, magnesium levels on daily basis.
Await pending cultures.
Plan for repeat CSF tap with opening pressures measurement.
Assessment / Plan
Assessment-
78-year-old male with recent diagnosis of cryptococcal meningitis on 01/28/2024 course complicated by acute CVA, s/p 2 weeks of induction therapy switched to consolidation therapy and [facility] presents to the ER for relapsing
fever, altered mental status.
FUO-
Cryptococcal Meningitis on Consolidation Therapy [employer].
AOx3, CSF analysis evident for elevated CSF WBC at 256, granulocytes 34, lymphocytes 31, macrophages 35, glucose less than 20, total protein 260. CSF fluid cryptococcus neoformans antigen pending. CSF PCR panel negative for cryptococcal
neoformans/Taylor but the sensitivity for CSF PCR is only 40% for cryptococcus..
Preliminary cultures of CSF-negative in 24 hours.
CBC showed no leukocytosis but there is a left shift.
Blood cultures x 2 in progress, preliminary results in 24 hours showed no growth.
Urine analysis negative, no urinary tract symptoms-dysuria or pyuria. Even if urine cultures are positive, would be considered as asymptomatic bacteriuria.
COVID antigen negative, influenza PCR negative
CD4, IgA, IgM during previous admission mildly low IgG at 578.
Chest x-ray showed no infiltrates.
No source of fever identified so far, but based on the CSF analysis patient is restarted on induction therapy.
Given his disconjugate gaze send anisocoria, I am concerned for possible intracranial hypertension. Hence I recommend getting another CSF tap with opening pressures.
Plan-
Restarted flucytosine 1500 mg p.o. inc increased to 4 times daily-day 2
Restarted amphotericin B 250 Mg IV-at 4 mg/kg daily. Given the adverse effects of amphotericin B monitor daily magnesium, sodium, calcium, potassium levels.
Recommend maintenance fluids for the patient with NS along with daily pretreatment with 500 cc NS bolus to prevent Amphotericin induced nephrotoxicity.
Avoid nephrotoxic agents. Euvolemic SIADH during the previous admission, hence I advise careful monitoring of sodium levels with IV fluids.
Aggressive daily potassium replacement.
Continue as needed treatment with Tylenol for rigors.
IRIS is also possible (even in immunocompetent patients) and treatment would be steroids if csf is not consistent with relapse given the severity of his symptoms
Close follow-up.
Chief Complaint
-: Other (Altered mental status.)
Subjective / Review of Systems
Patient is AO x 3, but sometimes makes irrelevant comments, waxing and waning mental status
Review of Systems: No Fever, Chills, No Headache, No Stiff Neck, No Cough and No Skin Rash
Vital Signs / Physical Exam
Vital Signs
Vital Signs
Temp Pulse Resp BP Pulse Ox
98.9 F 72 16 148/74 100
02/18/24 07:20 02/18/24 07:20 02/18/24 07:20 02/18/24 07:20 02/18/24 07:20
Physical Exam
Constitutional: Well Developed and Other (chills)
Cardiovascular: Regular Rate, S1/S2 and Murmur (systolic); Negative Rub or Gallop
Pulmonary: Clear; Negative Wheezes, Rales or Rhonchi
Gastrointestinal: Soft, Non Tender, Non Distended and Normal Bowel Sounds
Extremities: Negative Edema
Skin: Warm
Neurological: AO x 3 and Other (dysconjugate gaze, pupil reactive in b/l eyes, questionable wernicke's aphasia)
Psychological: Calm
Objective Data
Lab Data
PT 19.5 Sec (11.4-14.6) H 02/17/24 10:13
INR 1.67 02/17/24 10:13
APTT 25.1 Sec (23.4-35.0) 02/17/24 10:13
Lactic Acid Cancelled 02/17/24 14:15
Total Bilirubin 1.1 mg/dl (0.2-1.3) 02/17/24 10:13
AST 27 U/L (17-59) 02/17/24 10:13
ALT 31 U/L (0-50) 02/17/24 10:13
Alkaline Phosphatase 77 U/L (38-126) 02/17/24 10:13
Most recent labs reviewed.
Chest X-Ray: Image Reviewed and Report Reviewed
CT Scan: Image Reviewed and Report Reviewed
Micro Results:
02/17/24 15:27 Meningitis/Encephalitis Panel (PCR) - Final
Csf
02/17/24 15:27 CSF Culture - Pending
Csf Gram Stain - Preliminary
02/17/24 15:27 Fungal Culture - Preliminary
Csf Culture in progress.
Positive cultures are reported as soon as detected.
Final report to follow in four to five weeks.
02/17/24 10:13 Blood Culture - Pending
Blood/Venous
02/17/24 10:13 Influenza Types A & B (LEO) - Final
Nasal Swab Negative for Influenza A & B, NAAT
Negative results must be combined with clinical observations
and patient history.
Nucleic Acid Amplification test (NAAT)performed on the
[employer] platform.
02/17/24 10:13 Blood Culture - Pending
Blood/Venous
Meningitis panel - PCR - negative for E. coli K1, H influenza, Listeria monocytogenes, Listeria meningitis, CMV, strep agalactiae, pneumonia, enterovirus, HSV 1 2 and 6, human varicella virus, VZV, C neoformans/Taylor -02/17/24
Previous admission 01/29/2024-CSF cultures positive for cryptococcus neoformans. Culture sensitivity-COY 1 for amphotericin B, COY 8 for fluconazole, COY 0.12 for voriconazole.
[2024-02-18] MEDS: LOW STRENGTH ASPIRIN 81 MG PO (08:24)
[2024-02-18] MEDS: MAGNESIUM OXIDE 500 MG PO ×2 (08:24→21:00)
[2024-02-18] MEDS: PROTONIX 20 MG PO (08:24)
[2024-02-18] MEDS: SODIUM CHLORIDE 1 GRAM PO (08:24)
[2024-02-18] MEDS: LIPITOR 20 MG PO (08:24)
[2024-02-18] MEDS: THERAGRAN 1 TABLET PO (08:24)
[2024-02-18] MEDS: COLACE 100 MG PO ×2 (08:24→21:00)
[2024-02-18] MEDS: KCL 20 MEQ PO ×2 (08:24→21:00)
[2024-02-18 09:26] LABS: % Basophils 0.9 % (0-2); % Eosinophils 0.7 % (0-6); % Immature Granulocytes 0.6 % (0-0.5); % Lymphocytes 10.8 % (20.5-51.1); Absolute Basophils 0.1 10^3/uL (0-0.2); Absolute Eosinophils 0.1 10^3/uL (0-0.7); Absolute Immature Granulocytes 0.1 10^3/uL (0-0.05); Absolute Lymphocytes 1.2 10^3/uL (1.2-3.4); Absolute Monocytes 0.8 10^3/uL (0.1-0.6); Absolute Neutrophils 8.5 10^3/uL (1.4-6.5); Hematocrit 39.6 % (39.0-52.0); Hemoglobin 13.9 g/dL (13.0-18.0); Mean Corp Hgb Conc. 35.1 g/dL (33.0-37.0); Mean Corpuscular Hgb 32.2 pg (27.0-31.0); Mean Corpuscular Volume 91.7 fL (80.0-94.0); Mean Platelet Volume 9.4 fL (7.4-10.4); Nucleated Red Blood Cells % 0 % (-); Platelet Count 317 10^3/uL (130-400); Red Blood Cell Count 4.32 10^6/uL (4.70-6.10); Red Cell Dist. Width 11.9 % (11.5-14.5); White Blood Cell Count 10.7 10^3/uL (4.8-10.8)
[2024-02-18 09:52] LABS: ALT (SGPT) 27 U/L (0-50); AST (SGOT) 26 U/L (17-59); Albumin 4.3 g/dl (3.5-5.0); Alkaline Phosphatase 78 U/L (38-126); Blood Urea Nitrogen 27 mg/dl (9-20); Calcium 9.9 mg/dl (8.4-10.2); Carbon Dioxide 29 mmol/L (22-30); Chloride 92 mmol/L (98-107); Estimated Creatinine Clearance 48 ml/min; Glucose 119 mg/dl (70-99); Magnesium 1.9 mg/dl (1.6-2.3); Potassium 3.7 mmol/L (3.5-5.1); Sodium 134 mmol/L (135-145); Total Bilirubin 1.3 mg/dl (0.2-1.3); Total Protein 6.8 g/dl (6.3-8.2); eGFR > 60.00
--- NOTE | 2024-02-18 09:52 | PTOTSP ---
Dysphagia Evaluation
Patient presents with WFL-mild oral stage dysphagia and no pharyngeal dysphagia signs/symptoms. He is appropriate to advance to a regular, thin liquid diet at this time.
Patient was recently evaluated at [facility] with mod-severe receptive and expressive aphasia and cognitive linguistic deficits.
Recommend:
1. Regular, Thin Liquids
2. Medications - as best tolerated
3. Supervision given cognitive linguistic changes.
4. Alternate sips/bites
5. Oral care 2-3x daily
6. Will re-evaluate speech/language/cognition as able/appropriate.
[2024-02-18 10:21] VITALS: BP 134/94; PULSE 84; O2SAT 97
--- NOTE | 2024-02-18 15:11 | CM ---
Addendum entered by Beatrice Vicente 02/18/24 15:15:
Per chart review; patient previously resided with his spouse in a two story home with 2 floor master suite. There are two steps to enter. No DME/VN/SNF in the past. Pharmacy confirmed as [facility].
Original Note:
Patient seen at bedside with physician and residents. Patient stated that patient had been at [facility] since the discharge from . Patient indicated that plan is for patient to return to [facility] if bed available at that time. Patient
indicated that nothing else had changed for patient. CM will send updated clinicals via all scripts. CM will continue to follow for discharge planning needs.
Plan; return to [facility]; pending acceptance/bed availability.
[2024-02-18 15:20] VITALS: BP 112/71
[2024-02-18] MEDS: NSS 1000 IV (15:24)
[2024-02-18] MEDS: NSS 500 IV (17:38)
[2024-02-18] MEDS: TYLENOL PO (17:39)
[2024-02-18] MEDS: D5W 50 IV ×2 (17:40→21:01)
[2024-02-18] MEDS: AMBISOME 212.5 MG IV (17:41)
[2024-02-18] MEDS: SENOKOT 17.2 MG PO (21:01)
[2024-02-18 23:03] VITALS: BP 106/60
[2024-02-19] VITALS (9 sets, daily range): BP systolic 77–143; BP diastolic 57–81; PULSE 78; O2SAT 97
[2024-02-19] MEDS: [UNRECOGNIZED DRUG - OTHER] 1500 MG PO ×5 (00:41→23:43)
[2024-02-19] MEDS: NSS 1000 IV ×2 (03:21→23:43)
[2024-02-19] MEDS: TYLENOL 650 MG PO ×3 (06:02→23:39)
--- NOTE | 2024-02-19 07:34 | W.PN.HOSP.TC ---
Addendum entered and electronically signed by Brooklynn Bah MD 02/19/24 18:16:
I saw and evaluated the patient independently. I reviewed the resident�s note and agree with findings and plan as documented by Dr. Woodard.
GENERAL: well developed, well nourished, male in no apparent distress
HEENT: NC/AT--no O2 requirements--right facial droop
HEART: regular rate and rhythm, +S1, +S2, JACK
LUNGS : clear to auscultation bilaterally
ABDOM: soft, nontender, nondistended, + bowel sounds
EXT: no cyanosis, clubbing, or edema
NEUROLOGIC: right facial droop
Febrile State -- likely Cryptococcal meningitis relapse due to prior very recent infection---no other source of infection noted--apprec ID input, apprec IR for LP---s/p LP with CSF WBC 256, glucose < 20, TP 260--- restarted IV antifungals and redid
LP with opening pressure ~9
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
factors (not HIV, no cancer, no immunosuppression, no biologics)--truly unknown reason---completed liposomal amphotericin B--now looks like relapse and started consolidation therapy with Ampho B and flucytosine
H/o Occlusive thrombus in subclavian, axillary and proximal basilic vein on peripheral vasc US on 02/10/24-�restarted Eliquis
Recent stroke -- MRI showed 6mm acute stroke last admission--echocardiogram had no signs of vegetations--MRA of the head and neck were without hemodynamically significant stenosis--was accepted to [facility]--cont PT/OT/speech--plan for return to [facility] if
able
Heart Murmur--Asymptomatic-� Echo on 02/04: LVEF of 65-70%, Moderate aortic stenosis. Mild aortic regurgitation.Trace tricuspid regurgitation.
Hyperlipidemia--Continue statin
WAI --last admission-resolved
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
Hyperlipidemia--cont lipitor
Thyroid nodule--followed by endocrine but apparently discharged by them--biopsy in 2022 was negative--TSH WNL
DVT prophylaxis
Code status --Full code
Original Note:
Today's Communication/Plan
-
Potassium repleted
Continue antifungal therapy as per ID
Pending LP
Assessment / Plan
Assessment / Plan
IMPRESSION: This is a 78 year old male patient [facility] of [facility] mental status and fever. He was very recently admitted to from 01/17 to 02/12 for Cryptococcal meningitis and CVA (acute ischemic stroke in the
Left cerebral peduncle).
Assessment:
Fever
Altered mental status
Occlusive thrombus in subclavian, axillary and proximal basilic vein
Hx of cryptococcal meningitis
CVA (acute ischemic stroke in the left cerebral peduncle)
Hyperlipidemia
PLAN:
#Febrile State�Possible Cryptococcal meningitis due to prior very recent infection
�Head CT today: No significant findings
�Chest x-ray: No significant findings
-ID consulted, appreciated: Will send to IR for repeat LP for opening pressure
-Discontinued fluconazole
-WBC 10.1, Creatinine 1.3, lactic acid normal
-blood cultures- no growth
-Pt was restarted on IV amphotericin B and flucytosine on 02/16
-CSF orders: increased WBC, decreased glucose and increased total protein on 02/16
-Continue maintenance IVF, Already on NSS boluses due to IV amphotericin
-Potassium repleted (Level decreased at 3.4 today most likely due to antifungal therapy)
#Occlusive thrombus in subclavian, axillary and proximal basilic vein on peripheral vasc US on 02/10/24
�Hold Eliquis due to pending LP for opening pressure
#Heart Murmur
- Asymptomatic
� Echo on 02/04: LVEF of 65-70%, Moderate aortic stenosis. Mild aortic regurgitation. Trace tricuspid regurgitation.
#Hyperlipidemia
-Continue statin
Anticipated Discharge: 24 - 48 hours
Subjective/Interval History
-
Date of Service: February 19, 2024
Patient had no significant changes overnight, continues to have intermittent fevers.
Objective Data
-
Labs:
Laboratory Results
02/19/24
07:22
WBC Pending
Hgb Pending
Hct Pending
Plt Count Pending
Sodium Pending
Potassium Pending
Chloride Pending
Carbon Dioxide Pending
BUN Pending
Creatinine Pending
Glucose Pending
Calcium Pending
Vital Signs:
Vital Signs
Temp Pulse Resp BP Pulse Ox
101.5 F H 69 16 106/60 96
02/19/24 06:06 02/18/24 23:03 02/18/24 23:03 02/18/24 23:03 02/18/24 23:03
I&O
02/18/24 02/19/24 02/20/24
06:59 06:59 06:59
Intake Total 480 / 480 1280 / 1280
Output Total 1525 / 1525
Balance -1045 / -1045 1280 / 1280
Review of Systems
-
All other systems: Reviewed and negative
Physical Exam
-
General: No Apparent Distress
HEENT: Normocephalic
Respiratory: Clear to Auscultation
Cardiac: Regular Rhythm and S1/S2
GI: Soft, Nontender and Nondistended
Musculoskeletal: No Cyanosis and No Edema
Skin: Warm and Dry
Neuro: Awake, Alert and Oriented
Psych: Calm
[2024-02-19 08:20] LABS: % Basophils 0.8 % (0-2); % Eosinophils 0.7 % (0-6); % Immature Granulocytes 0.5 % (0-0.5); % Lymphocytes 7.7 % (20.5-51.1); % Monocytes 6.8 % (1.7-9.3); % Neutrophils 83.5 % (42.2-75.2); Absolute Basophils 0.1 10^3/uL (0-0.2); Absolute Eosinophils 0.1 10^3/uL (0-0.7); Absolute Immature Granulocytes 0.1 10^3/uL (0-0.05); Absolute Lymphocytes 0.7 10^3/uL (1.2-3.4); Absolute Monocytes 0.7 10^3/uL (0.1-0.6); Absolute Neutrophils 7.9 10^3/uL (1.4-6.5); Hematocrit 36.4 % (39.0-52.0); Hemoglobin 12.8 g/dL (13.0-18.0); Mean Corp Hgb Conc. 35.2 g/dL (33.0-37.0); Mean Corpuscular Hgb 32.2 pg (27.0-31.0); Mean Corpuscular Volume 91.5 fL (80.0-94.0); Mean Platelet Volume 9.6 fL (7.4-10.4); Nucleated Red Blood Cells % 0 % (-); Platelet Count 297 10^3/uL (130-400); Red Blood Cell Count 3.98 10^6/uL (4.70-6.10); Red Cell Dist. Width 11.9 % (11.5-14.5); White Blood Cell Count 9.5 10^3/uL (4.8-10.8)
[2024-02-19 08:50] LABS: Blood Urea Nitrogen 28 mg/dl (9-20); Calcium 9.4 mg/dl (8.4-10.2); Carbon Dioxide 26 mmol/L (22-30); Chloride 95 mmol/L (98-107); Estimated Creatinine Clearance 44 ml/min; Glucose 112 mg/dl (70-99); Magnesium 1.9 mg/dl (1.6-2.3); Potassium 3.4 mmol/L (3.5-5.1); Sodium 135 mmol/L (135-145); eGFR > 60.00
[2024-02-19] MEDS: COLACE 100 MG PO (10:01)
[2024-02-19] MEDS: ELIQUIS 5 MG PO (10:01)
[2024-02-19] MEDS: PROTONIX 20 MG PO (10:01)
[2024-02-19] MEDS: LOW STRENGTH ASPIRIN 81 MG PO (10:01)
[2024-02-19] MEDS: THERAGRAN 1 TABLET PO (10:02)
[2024-02-19] MEDS: SODIUM CHLORIDE 1 GRAM PO (10:02)
[2024-02-19] MEDS: MAGNESIUM OXIDE 500 MG PO ×2 (10:02→20:37)
[2024-02-19] MEDS: KCL 20 MEQ PO (10:02)
[2024-02-19] MEDS: LIPITOR 20 MG PO (10:02)
--- NOTE | 2024-02-19 13:16 | W.PN.ID1 ---
Addendum entered and electronically signed by Naa John MD 02/19/24 16:59:
I saw and evaluated the patient. I reviewed the resident�s note and agree with findings and plan as documented in the resident�s note with the following additions/corrections:
S:
fevers ongoing though Tmax appears lower
bp stable
denies blurry vision
discussed possibility of return to most when stablized with dr munoz
O:
wbc 9/5
L shift persists
Na 135
K 3.4
Cr 1.2
Mg 1.9
Physical Exam
Constitutional: Comfortable
HEENT: dysconjugate gaze remains prominent
Cardiovascular: S1/S2 and Murmur; Negative Rub or Gallop
Pulmonary: Clear; Negative Wheezes, Rales or Rhonchi
Gastrointestinal: Soft, Non Tender, Non Distended and Normal Bowel Sounds
Neurological: alert
A&P:
Relapsed Cryptococcal Meningitis
Relapse of Fever
AMS -resolved
Hyponatremia - improved with Na loading
- risk factors for relapse included steroids (medrol dose pack x2) for neck pain early in his course prior to the diagnosis of cryptomeningitis, also low initial csf wbc count and low glucose
- immunoglobulins: mildly low IgG at 578 last visit, IgA and IgM normal - unlikely to have a primary immunodeficiency, plan to repeat levels 6 weeks after recovery
- LP suggestive of relapse of cryptococcal meningitis - lab unsure of the amount of fluid used for fungal csf culture
- plan repeat LP to reassess intracranial pressure if opening pressure > 25 ccs then remove fluid until <20 ccs or if very high decrease ICP by 50%
- with repeat LP will repeat fungal csf culture with at least 3 ccs of CSF - the amount of fluid used in the culture impacts the yield
- lipo ampho B now at 4 mg/kg daily
- flucytosine 1500 mg po QID
- appreciate clinical pharmacy assistance with obtaining flucytosine levels - allowing for some washout of the recent fluconazole which may interfere with the assay
- plan at least 4 weeks of re-induction and possibly longer pending repeat LP at the end of 4 weeks
- daily cbc, bmp, mag levels
- aggressive K/mag replacement
- avoid nephrotoxic agents as feasible - ok for low dose NSAIDs if needed - careful monitoring of renal function
- pretreatment with tylenol and PRN for rigors/fevers
- daily pretreatment with 500 ccs NS bolus in addition to maintenance fluids
- hydration with normal saline, follow Na closely
- prognosis remains favorable
- follow closely
AW
Original Note:
Date of Service
Date of Service: February 19, 2024
Today's Communication
Continue Amphotericin B and Flucytosine
Continue monitoring electrolytes, CBC closely
Continue IV hydration
Assessment / Plan
Assessment-
78-year-old male with recent diagnosis of cryptococcal meningitis on 01/28/2024 course complicated by acute CVA, s/p 2 weeks of induction therapy switched to consolidation therapy and discharged to [facility]12 presents to the ER for relapsing
fever, altered mental status.
FUO- Possible cryptococcal meningitis relapse.
Cryptococcal Meningitis on Consolidation Therapy [employer].
AOx3, CSF analysis evident for elevated CSF WBC at 256, granulocytes 34, lymphocytes 31, macrophages 35, glucose less than 20, total protein 260. CSF fluid cryptococcus neoformans antigen pending. CSF PCR panel negative for cryptococcal
neoformans/Taylor but the sensitivity for CSF PCR is only 40% for cryptococcus..
Preliminary cultures of CSF-negative in 48 hours.
CBC showed no leukocytosis but there is a left shift.
Blood cultures x 2 - preliminary results in 48 hours showed no growth.
Urine analysis negative, no urinary tract symptoms-dysuria or pyuria. Even if urine cultures are positive, would be considered as asymptomatic bacteriuria.
COVID antigen negative, influenza PCR negative
Normal CD4, IgA, IgM during previous admission mildly low IgG at 578.
Chest x-ray showed no infiltrates.
No source of fever identified so far, but based on the CSF analysis patient is restarted on induction therapy.
Given his disconjugate gaze and anisocoria. CSF opening pressures at 9cm H20.
Plan-
Restarted flucytosine 1500 mg p.o. inc increased to 4 times daily-day 3
Restarted amphotericin B 250 Mg IV-at 4 mg/kg daily. Hypokalemia noted today.
-Given the adverse effects of amphotericin B monitor daily magnesium, sodium, calcium, potassium levels.
-Aggressive daily potassium replacement.
Recommend maintenance fluids for the patient with NS along with daily pretreatment with 500 cc NS bolus to prevent Amphotericin induced nephrotoxicity.
Avoid nephrotoxic agents.
Euvolemic SIADH during the previous admission, hence I advise careful monitoring of sodium levels with IV fluids.
Continue as needed treatment with Tylenol for rigors.
IRIS is also possible (even in immunocompetent patients) and treatment would be steroids if csf is not consistent with relapse given the severity of his symptoms
Close follow-up.
Chief Complaint
-: Other (Altered mental status.)
Subjective / Review of Systems
Review of Systems: Fever, No Chills, No Headache, No Stiff Neck, No Chest Pain, No Palpitations and No Nausea
Vital Signs / Physical Exam
Vital Signs
Vital Signs
Temp Pulse Resp BP Pulse Ox
98.4 F 75 16 118/63 94
02/19/24 08:15 02/19/24 08:15 02/19/24 08:15 02/19/24 08:15 02/19/24 08:15
Physical Exam
Constitutional: Comfortable
Eyes: Other (abnormal gaze); Negative Pupils Equal
Cardiovascular: S1/S2 and Murmur; Negative Rub or Gallop
Pulmonary: Clear; Negative Wheezes, Rales or Rhonchi
Gastrointestinal: Soft, Non Tender, Non Distended and Normal Bowel Sounds
Extremities: Negative Edema
Skin: Warm
Neurological: AO x 3
Psychological: Calm
Objective Data
Lab Data
Lab Results
02/19/24 07:22
02/19/24 07:22
PT 19.5 Sec (11.4-14.6) H 02/17/24 10:13
INR 1.67 02/17/24 10:13
APTT 25.1 Sec (23.4-35.0) 02/17/24 10:13
Estimated Creat Clear 44 ml/min 02/19/24 07:22
Lactic Acid Cancelled 02/17/24 14:15
Total Bilirubin 1.3 mg/dl (0.2-1.3) 02/18/24 09:06
AST 26 U/L (17-59) 02/18/24 09:06
ALT 27 U/L (0-50) 02/18/24 09:06
Alkaline Phosphatase 78 U/L (38-126) 02/18/24 09:06
Most recent labs reviewed.
Chest X-Ray: Image Reviewed and Report Reviewed
CT Scan: Image Reviewed and Report Reviewed
Microbiology: Report Reviewed
Micro Results:
02/17/24 10:13 Blood Culture - Preliminary
Blood/Venous No Growth in 48 hours- Final report to follow
02/17/24 15:27 CSF Culture - Preliminary
Csf No Growth After 48 Hours
Gram Stain - Preliminary
02/17/24 10:13 Blood Culture - Preliminary
Blood/Venous No Growth in 24 hours- Final report to follow
02/17/24 15:27 Meningitis/Encephalitis Panel (PCR) - Final
Csf
02/17/24 15:27 Fungal Culture - Preliminary
Csf Culture in progress.
Positive cultures are reported as soon as detected.
Final report to follow in four to five weeks.
02/17/24 10:13 Influenza Types A & B (LEO) - Final
Nasal Swab Negative for Influenza A & B, NAAT
Negative results must be combined with clinical observations
and patient history.
Nucleic Acid Amplification test (NAAT)performed on the
[employer] platform.
Meningitis panel - PCR - negative for E. coli K1, H influenza, Listeria monocytogenes, Listeria meningitis, CMV, strep agalactiae, pneumonia, enterovirus, HSV 1 2 and 6, human varicella virus, VZV, C neoformans/Taylor -02/17/24
Previous admission
01/29/2024-CSF cultures positive for cryptococcus neoformans.
Culture sensitivity-COY 1 for amphotericin B, COY 8 for fluconazole, COY 0.12 for voriconazole.
--- NOTE | 2024-02-19 14:05 | CM ---
Patient seen at bedside with physician and residents. Patient reviewed by [facility] and they do plan to accept patient back when medically appropriate. CM updated nursing and patient , continue to follow for discharge planning needs.
Plan; [facility]
--- NOTE | 2024-02-19 14:36 | W.PN.UPDATE ---
Update Note
Progress Note Update
- Repeat LP performed with opening pressure. Sluggish CSF flow with pressure of 9 cm H20.
- Approximately 5 mL fluid removed.
- Pt tolerated well.
[2024-02-19] MEDS: KCL 40 MEQ PO (15:12)
[2024-02-19 15:50] LABS: Spinal Fluid Glucose < 20 mg/dl (40-70)
[2024-02-19 15:59] LABS: Spinal Fluid Protein 368 mg/dl (12-60)
[2024-02-19] MEDS: TYLENOL PO (17:49)
[2024-02-19] MEDS: NSS 500 IV (17:52)
[2024-02-19] MEDS: D5W 50 IV ×2 (18:50→21:49)
[2024-02-19] MEDS: AMBISOME 212.5 MG IV (18:51)
[2024-02-19] MEDS: COLACE PO (20:36)
[2024-02-19] MEDS: SENOKOT PO (21:49)
[2024-02-20] VITALS (13 sets, daily range): BP systolic 117–196; BP diastolic 61–87; BMI 19.1
[2024-02-20] MEDS: TYLENOL 650 MG PO ×2 (04:12→23:34)
[2024-02-20 05:30] LABS: % Basophils 0.9 % (0-2); % Eosinophils 1.1 % (0-6); % Immature Granulocytes 0.6 % (0-0.5); % Lymphocytes 12.5 % (20.5-51.1); % Monocytes 7.9 % (1.7-9.3); Absolute Basophils 0.1 10^3/uL (0-0.2); Absolute Eosinophils 0.1 10^3/uL (0-0.7); Absolute Immature Granulocytes 0.1 10^3/uL (0-0.05); Absolute Lymphocytes 1.4 10^3/uL (1.2-3.4); Absolute Monocytes 0.9 10^3/uL (0.1-0.6); Absolute Neutrophils 8.7 10^3/uL (1.4-6.5); Hematocrit 36.1 % (39.0-52.0); Hemoglobin 12.7 g/dL (13.0-18.0); Mean Corp Hgb Conc. 35.2 g/dL (33.0-37.0); Mean Corpuscular Hgb 32.2 pg (27.0-31.0); Mean Corpuscular Volume 91.6 fL (80.0-94.0); Nucleated Red Blood Cells % 0 % (-); Platelet Count 293 10^3/uL (130-400); Red Blood Cell Count 3.94 10^6/uL (4.70-6.10); White Blood Cell Count 11.3 10^3/uL (4.8-10.8)
[2024-02-20 05:59] LABS: Blood Urea Nitrogen 30 mg/dl (9-20); Calcium 9.6 mg/dl (8.4-10.2); Carbon Dioxide 27 mmol/L (22-30); Chloride 97 mmol/L (98-107); Estimated Creatinine Clearance 48 ml/min; Glucose 98 mg/dl (70-99); Potassium 3.7 mmol/L (3.5-5.1); Sodium 136 mmol/L (135-145); eGFR > 60.00
[2024-02-20] MEDS: [UNRECOGNIZED DRUG - OTHER] 1500 MG PO ×4 (06:11→23:33)
--- NOTE | 2024-02-20 07:06 | W.PN.HOSP.TC ---
Addendum entered and electronically signed by Brooklynn Bah MD 02/20/24 16:03:
I saw and evaluated the patient independently. I reviewed the resident�s note and agree with findings and plan as documented by Dr. Woodard.
GENERAL: well developed, well nourished, male in no apparent distress
HEENT: NC/AT--no O2 requirements--right facial droop
HEART: regular rate and rhythm, +S1, +S2, JACK
LUNGS : clear to auscultation bilaterally
ABDOM: soft, nontender, nondistended, + bowel sounds
EXT: no cyanosis, clubbing, or edema
NEUROLOGIC: right facial droop--aphasia again today, difficulty swallowing for nurse, decreased mental status
change in mental status yet again 02/20/24--sent for MRI brain--positive for new CVA in posterior midbrain with possible mild encephalitis, updated at bedside--transfer to IMU--passed speech eval and can have regular solids and thin
liquids--reconsult neurology--Eliquis held again, will defer to neuro re: restarting
Febrile State -- likely Cryptococcal meningitis relapse due to prior very recent infection---no other source of infection noted--apprec ID input, apprec IR for LP---s/p LP with CSF WBC 256, glucose < 20, TP 260--- restarted IV antifungals and redid
LP with opening pressure ~9
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
factors (not HIV, no cancer, no immunosuppression, no biologics)--truly unknown reason---completed liposomal amphotericin B--now looks like relapse and started consolidation therapy with Ampho B and flucytosine
H/o Occlusive thrombus in subclavian, axillary and proximal basilic vein on peripheral vasc US on 02/10/24-�restarted Eliquis
Recent stroke -- MRI showed 6mm acute stroke last admission, now with new stroke today 02/20/24--echocardiogram had no signs of vegetations--MRA of the head and neck were without hemodynamically significant stenosis--was accepted to [facility]--cont
PT/OT/speech--plan for return to [facility] if able
Heart Murmur--Asymptomatic-� Echo on 02/04: LVEF of 65-70%, Moderate aortic stenosis. Mild aortic regurgitation.Trace tricuspid regurgitation.
Hyperlipidemia--Continue statin
WAI --last admission-resolved
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
Hyperlipidemia--cont lipitor
Thyroid nodule--followed by endocrine but apparently discharged by them--biopsy in 2022 was negative--TSH WNL
DVT prophylaxis
Code status --Full code
Original Note:
Today's Communication/Plan
-
Held Eliquis due to new infarct
Neuro consult
Transfer to IMU
Continue antifungal therapy
Assessment / Plan
Assessment / Plan
IMPRESSION: This is a 78 year old male patient coming to the ER from [facility] with concerns of altered mental status and fever. He was very recently admitted to from 01/17 to 02/12 for Cryptococcal meningitis and CVA (acute ischemic stroke in the
Left cerebral peduncle).
Assessment:
Fever
Altered mental status
Occlusive thrombus in subclavian, axillary and proximal basilic vein
Hx of cryptococcal meningitis
CVA (acute ischemic stroke in the left cerebral peduncle)
Hyperlipidemia
PLAN:
#Febrile State�Possible Cryptococcal meningitis due to prior very recent infection
-Intermittent fevers
�Head CT today: No significant findings
�Chest x-ray: No significant findings
-ID consulted, appreciated
-Discontinued fluconazole
-WBC 10.1, Creatinine 1.3, lactic acid normal
-blood cultures on 02/16- no growth
-monitor electrolytes
-Pt was restarted on IV amphotericin B and flucytosine on 02/16
-CSF orders: increased WBC, decreased glucose and increased total protein on 02/16
-LP on 02/17 showed opening pressure of 9
-Continue maintenance IVF, Already on NSS boluses due to IV amphotericin
-Potassium stable
-Brain MRI on 02/19 due to altered mental status: New small 0.8 cm acute infarct in the posterior midbrain, New T2/FLAIR hyperintense signal in the posterior left temporal lobe, nonspecific but could be on the basis of a mild encephalitis
-Eliquis held
-Neuro consult pending
-Transfer to IMU
#Occlusive thrombus in subclavian, axillary and proximal basilic vein on peripheral vasc US on 02/10/24
�Hold Eliquis due new finding of small infarct on brain MRI on 02/18
#Heart Murmur
- Asymptomatic
� Echo on 02/04: LVEF of 65-70%, Moderate aortic stenosis. Mild aortic regurgitation. Trace tricuspid regurgitation.
#Hyperlipidemia
-Continue statin
Anticipated Discharge: 24 - 48 hours
Subjective/Interval History
-
Date of Service: February 20, 2024
Patient continues to have waxing and waning effects during the time of examination.
Objective Data
-
Labs:
Laboratory Results
02/20/24
04:10
WBC 11.3 H
Hgb 12.7 L
Hct 36.1 L
Plt Count 293
Sodium 136
Potassium 3.7
Chloride 97 L
Carbon Dioxide 27
BUN 30 H
Creatinine 1.1
Glucose 98
Calcium 9.6
Vital Signs:
Vital Signs
Temp Pulse Resp BP Pulse Ox
99.4 F 81 16 123/84 97
02/20/24 06:22 02/20/24 04:04 02/20/24 04:04 02/20/24 04:04 02/20/24 04:04
I&O
02/19/24 02/20/24 02/21/24
06:59 06:59 06:59
Intake Total 1280 / 1280 1456 / 1456
Balance 1280 / 1280 1456 / 1456
Review of Systems
-
All other systems: Reviewed and negative
Physical Exam
-
General: No Apparent Distress
HEENT: Normocephalic
Respiratory: Clear to Auscultation
Cardiac: Regular Rhythm and S1/S2
GI: Soft, Nontender and Nondistended
Musculoskeletal: No Edema
Skin: Warm and Dry
Neuro: Awake, Alert and Oriented (waxing and waning effect)
Psych: Calm
--- NOTE | 2024-02-20 08:46 | W.PN.ID1 ---
Addendum entered and electronically signed by Naa John MD 02/20/24 11:48:
I saw and evaluated the patient. I reviewed the resident�s note and agree with findings and plan as documented in the resident�s note with the following additions/corrections:
S:
fevers ongoing though nearly normal
bp stable and no hypotensive
denies blurry vision
right nasolabial fold slack and not moving the RUE
O:
wbc 1.3
L shift persists - nearly normalized
Na 136
K 3.7
Cr 1.1
Mg 2.0
Physical Exam
Constitutional: Comfortable
HEENT: dysconjugate gaze remains prominent
Cardiovascular: S1/S2 and Murmur; Negative Rub or Gallop
Pulmonary: Clear; Negative Wheezes, Rales or Rhonchi
Gastrointestinal: Soft, Non Tender, Non Distended and Normal Bowel Sounds
Neurological: alert, repsonding to simple questions, right nasolabial fold slack and not moving the RUE; moving LUE and grossly moving bilateral lower extremities
A&P:
Suspected Acute Stroke
- right nasolabial fold slack and not moving the RUE
- urgent MRI brain with contrast is ordered
Relapsed Cryptococcal Meningitis
Relapse of Fever
AMS -resolved
Hyponatremia - improved with Na loading
- risk factors for relapse included steroids (medrol dose pack x2) for neck pain early in his course prior to the diagnosis of cryptomeningitis, also low initial csf wbc count and low glucose
- LP suggestive of relapse of cryptococcal meningitis, opening pressure 9 mmH2O, repeat csf fungus culture with a higher volume of fluid sent 02/18
- lipo ampho B now at 4 mg/kg daily
- flucytosine 1500 mg po QID - if unable to swallow will need NGT, notify me and will plan to compound it into solution, seems to be a non-issue
- appreciate clinical pharmacy assistance with obtaining flucytosine levels - allowing for some washout of the recent fluconazole which may interfere with the assay
- plan at least 4 weeks of re-induction and possibly longer pending repeat LP at the end of 4 weeks
- daily cbc, bmp, mag levels
- aggressive K/mag replacement
- avoid nephrotoxic agents as feasible - ok for low dose NSAIDs if needed - careful monitoring of renal function
- pretreatment with tylenol and PRN for rigors/fevers
- daily pretreatment with 500 ccs NS bolus in addition to maintenance fluids
- hydration with normal saline, follow Na closely
- prognosis remains favorable
- follow closely
AW
Original Note:
Date of Service
Date of Service: February 20, 2024
Today's Communication
Resume flucytosine if MRI showed no acute intracranial lesions or evidence for stroke.
IF not, urgent speech therapy evaluation and NG tube placement for flucytosine administration.
Continue Amphotericin B
Continue IVF support.
Assessment / Plan
Assessment-
78-year-old male with recent diagnosis of cryptococcal meningitis on 01/28/2024 course complicated by acute CVA, s/p 2 weeks of induction therapy switched to consolidation therapy and discharged to [facility] on 02/12 presents to the ER for relapsing
fever, altered mental status.
FUO- Possible cryptococcal meningitis relapse.
Cryptococcal Meningitis on Consolidation Therapy [employer].
AOx3, CSF analysis evident for elevated CSF WBC at 256, granulocytes 34, lymphocytes 31, macrophages 35, glucose less than 20, total protein 260. Repeat CSF analysis on 02/18-CSF glucose less than 20, CSF protein 368. CSF fluid cryptococcus
neoformans antigen pending. CSF PCR panel negative for cryptococcal neoformans/Taylor but the sensitivity for CSF PCR is only 40% for cryptococcus..
Preliminary cultures of CSF-negative in 48 hours.
CBC showed leukocytosis on 02/20/2024- there is a left shift.
Blood cultures x 2 - preliminary results in 48 hours showed no growth.
Urine analysis negative, no urinary tract symptoms-dysuria or pyuria. Even if urine cultures are positive, would be considered as asymptomatic bacteriuria.
COVID antigen negative, influenza PCR negative
Sodium-136, potassium-3.7, magnesium-2.0, calcium-9.6.
Normal CD4, IgA, IgM during previous admission mildly low IgG at 578.
Chest x-ray showed no infiltrates.
No source of fever identified so far, but based on the CSF analysis patient is restarted on induction therapy.
Has disconjugate gaze and anisocoria. Now associated with nasolabial fold asymmetry and difficulty to raise left arm. CSF opening pressures at 9cm H20.
Plan-
Questionable acute stroke, urgent MRI for evaluation.
Restarted flucytosine 1500 mg p.o. inc increased to 4 times daily-day 4, currently on hold.
Currently flucytosine on hold. If evidence of stroke immediate speech therapy eval and NG tube will be needed for flucytosine.
Restarted amphotericin B 250 Mg IV-at 4 mg/kg daily. Hypokalemia noted today.
-Given the adverse effects of amphotericin B monitor daily magnesium, sodium, calcium, potassium levels.
-Aggressive daily potassium replacement.
Recommend maintenance fluids for the patient with NS along with daily pretreatment with 500 cc NS bolus to prevent Amphotericin induced nephrotoxicity.
Avoid nephrotoxic agents.
Euvolemic SIADH during the previous admission, hence I advise careful monitoring of sodium levels with IV fluids.
Continue as needed treatment with Tylenol for rigors.
IRIS is also possible (even in immunocompetent patients) and treatment would be steroids if csf is not consistent with relapse given the severity of his symptoms
Close follow-up.
Chief Complaint
-: Other (Altered mental status.)
Subjective / Review of Systems
Difficult to obtain as patient is awake and alert but not oriented to time person and place. Will reassess in the noon as patient could be sleeping.
Vital Signs / Physical Exam
Vital Signs
Vital Signs
Temp Pulse Resp BP Pulse Ox
98.9 F 68 16 149/87 96
02/20/24 07:16 02/20/24 07:16 02/20/24 07:16 02/20/24 07:16 02/20/24 07:16
Physical Exam
Constitutional: Comfortable
Eyes: Other (dysconjugate Gaze); Negative Pupils Equal
Cardiovascular: S1/S2; Negative Murmur, Rub or Gallop
Pulmonary: Clear; Negative Wheezes, Rales or Rhonchi
Gastrointestinal: Soft, Non Tender, Non Distended and Normal Bowel Sounds
Extremities: Negative Edema
Skin: Warm
Neurological: Awake, Alert and Other (nasolabial fold asymmetry and difficulty to move left arm); Negative Oriented
Psychological: Calm
Objective Data
Lab Data
Lab Results
02/20/24 04:10
02/20/24 04:10
PT 19.5 Sec (11.4-14.6) H 02/17/24 10:13
INR 1.67 02/17/24 10:13
APTT 25.1 Sec (23.4-35.0) 02/17/24 10:13
Estimated Creat Clear 48 ml/min 02/20/24 04:10
Lactic Acid Cancelled 02/17/24 14:15
Total Bilirubin 1.3 mg/dl (0.2-1.3) 02/18/24 09:06
AST 26 U/L (17-59) 02/18/24 09:06
ALT 27 U/L (0-50) 02/18/24 09:06
Alkaline Phosphatase 78 U/L (38-126) 02/18/24 09:06
Most recent labs reviewed.
Micro Results:
02/19/24 14:20 Fungal Culture - Preliminary
Csf Culture in progress.
Positive cultures are reported as soon as detected.
Final report to follow in four to five weeks.
02/17/24 10:13 Blood Culture - Preliminary
Blood/Venous No Growth in 48 hours- Final report to follow
02/17/24 10:13 Blood Culture - Preliminary
Blood/Venous No Growth in 48 hours- Final report to follow
02/17/24 15:27 CSF Culture - Preliminary
Csf No Growth After 48 Hours
Gram Stain - Preliminary
02/17/24 15:27 Meningitis/Encephalitis Panel (PCR) - Final
Csf
02/17/24 15:27 Fungal Culture - Preliminary
Csf Culture in progress.
Positive cultures are reported as soon as detected.
Final report to follow in four to five weeks.
02/17/24 10:13 Influenza Types A & B (LEO) - Final
Nasal Swab Negative for Influenza A & B, NAAT
Negative results must be combined with clinical observations
and patient history.
Nucleic Acid Amplification test (NAAT)performed on the
[employer] platform.
Meningitis panel - PCR - negative for E. coli K1, H influenza, Listeria monocytogenes, Listeria meningitis, CMV, strep agalactiae, pneumonia, enterovirus, HSV 1 2 and 6, human varicella virus, VZV, C neoformans/Taylor -02/17/24
Previous admission
01/29/2024-CSF cultures positive for cryptococcus neoformans.
Culture sensitivity-COY 1 for amphotericin B, COY 8 for fluconazole, COY 0.12 for voriconazole.
--- NOTE | 2024-02-20 09:05 | CM ---
Patient seen at bedside with physician and residents. Patient sleepy, answered good when told light would be turned off. Patient for MRI per physician. CM will continue to follow for discharge planning needs.
Plan; Acute Rehab pending medical assessment and bed availability
[2024-02-20] MEDS: COLACE PO ×2 (10:09→20:08)
[2024-02-20] MEDS: THERAGRAN 1 TABLET PO (10:39)
[2024-02-20] MEDS: MAGNESIUM OXIDE 500 MG PO ×2 (10:40→20:05)
[2024-02-20] MEDS: LIPITOR 20 MG PO (10:40)
[2024-02-20] MEDS: SODIUM CHLORIDE 1 GRAM PO (10:40)
[2024-02-20] MEDS: LOW STRENGTH ASPIRIN 81 MG PO (10:41)
[2024-02-20] MEDS: ELIQUIS 5 MG PO (10:41)
[2024-02-20] MEDS: KCL PO ×2 (10:41→14:29)
[2024-02-20] MEDS: PROTONIX 20 MG PO (10:41)
--- NOTE | 2024-02-20 10:45 | PTCARENOTE ---
Pt very drowsy and lethargic this AM, unable to perform NIHSS fully due to patient being confused (unsure if inattention is a result of possible stroke or baseline confusion). VSS this AM. made aware, MRI ordered. Speech recommending NPO awaiting
results of MRI, pts updated by this RN at bedside. Pt seemingly more alert now that is present, pt sent down to MRI for testing. No new orders at this time.
[2024-02-20] MEDS: NSS 1000 IV (11:54)
--- NOTE | 2024-02-20 15:19 | CON.NEURO ---
Consultation
Order
Date of Consultation: 02/20/24
Requesting Provider: Jennifer Pickett MD
Reason for Consult: stroke
Neurology consultation note
CC: none
HPI: This is an 78-year-old immunocompetent ambidextrous man who presented to [facility] on 01/18/2024 with ambulatory dysfunction and fatigue and was diagnosed with cryptococcal meningitis. Hospital course was complicated by
occlusive thrombus in the right subclavian, axillary and proximal basilic veins as well as acute left cerebral peduncle infarct on 02/04/2024 as well as newly discovered acute posterior midbrain infarct.
Mr. Juárez is unable to provide a history. He was noted to be more encephalopathic over the last 24h.
Brain MRI wo lana(02/20/2024)-new small focus of restricted diffusion in the posterior midbrain at midline measuring 0.8 cm, most compatible with an acute infarct. New T2/FLAIR hyperintense signal in the posterior aspect of the left temporal lobe
LDL-55
PMH: cryptococcal meningitis, L cerebellar peduncle stroke, hypothyroidism, cervical DJD/neck pain,
SH: , former smoker, retired; was independent in IADLs prior to the admission.
FH: Not contributory to current presentation
All: No known drug allergies
ROS: Unable due to encephalopathy.
General: Well developed. In no acute distress.
Cardio: Regular rate and rhythm without murmur. Extremities are without cyanosis or edema.
Neuro:
Mental Status: Alert, oriented to name, person not to time or age. Poor attention and comprehension. Follows simple requests intermittently. No hemineglect.
Cranial Nerves: Right exophoria on primary gaze. Pupils are equally round and reactive to light. Blink to threat bilaterally. No ptosis. No nystagmus. Right nasolabial fold flattening. Severe hypophonia.
Motor: Mild right pronator drift, all limbs are antigravity.
Reflexes: Negative grasp and clonus.
Sensory: Limited exam due to poor attention.
Coordination: No tremors myoclonic movements.
Gait: deferred
Assessment and Plan:
I. Acute posterior midbrain stroke. Likely etiology�lacunar versus embolic. Rule out IE. �Cryptococcal meningitis is known to cause lacunar strokes, especially in the basal ganglia.
II. New T2/FLAIR left temporal lobe signal abnormality(edema vs postictal vs infectious)
III. Subacute L PADDED BOX SEWER territory lacunal infarct
-Seizure precautions
-Brain MRI with lana
-GIL
-Routine EEG
-ASA 81mg QD
-Will follow
I personally reviewed all radiology and labs along with past medical records pertinent to current medical problems. Total time spent in patient care is 60 minutes.
Thank you for allowing us to participate in the care of this patient. We will continue to follow. Please do not hesitate to contact us with any questions or concerns.
Subjective/Objective
Subjective Data
Date of Service: February 20, 2024
Objective Data
Vital Signs
Temp Pulse Resp BP Pulse Ox
39.1 C H 84 16 140/78 98
02/20/24 15:18 02/20/24 15:18 02/20/24 15:18 02/20/24 15:18 02/20/24 15:18
Lab Results
02/20/24 04:10
02/20/24 04:10
PT 19.5 Sec (11.4-14.6) H 02/17/24 10:13
INR 1.67 02/17/24 10:13
APTT 25.1 Sec (23.4-35.0) 02/17/24 10:13
Sodium 136 mmol/L (135-145) 02/20/24 04:10
Potassium 3.7 mmol/L (3.5-5.1) 02/20/24 04:10
BUN 30 mg/dl (9-20) H 02/20/24 04:10
Glucose 98 mg/dl (70-99) 02/20/24 04:10
Calcium 9.6 mg/dl (8.4-10.2) 02/20/24 04:10
Patient Allergies
No Known Allergies Allergy (Verified 01/25/24 14:02)
Medications
-
Active Medications
Generic Name Dose Route Start Last Admin
Trade Name Freq PRN Reason Stop Dose Admin
Acetaminophen 1,000 mg 02/18/24 17:00 02/19/24 17:49
Acetaminophen 500 Mg Tablet PO 03/17/24 17:01 Not Given
Q24H UMAIR
Acetaminophen 650 mg 02/19/24 14:41 02/20/24 04:12
Acetaminophen 325 Mg Tablet PO 03/18/24 14:40 650 mg
Q4HPRN PRN Administration
headache/mild pain/fever>100.4
Apixaban 5 mg 02/20/24 08:00 02/20/24 10:41
Apixaban (Eliquis) 5 Mg Tablet PO 03/19/24 07:59 5 mg
BID UMAIR Administration
Aspirin 81 mg 02/18/24 08:00 02/20/24 10:41
Aspirin 81 Mg Chewable Tablet PO 03/17/24 07:59 81 mg
DAILY UMAIR Administration
Atorvastatin Calcium 20 mg 02/18/24 08:00 02/20/24 10:40
Atorvastatin (Lipitor) 20 Mg Tablet PO 03/17/24 07:59 20 mg
DAILY UMAIR Administration
Bisacodyl 10 mg 02/17/24 15:53
Bisacodyl 5 Mg Enteric Coated Tablet PO 03/16/24 15:52
DAILYPRN PRN
constipation
Bisacodyl 10 mg 02/17/24 15:53
Bisacodyl 10 Mg Rectal Suppository RECTAL 03/16/24 15:52
[id number] PRN
constipation
Docusate Sodium 100 mg 02/17/24 20:00 02/20/24 10:09
Docusate Sodium 100 Mg Capsule PO 03/16/24 19:59 Not Given
BID UMAIR
Flucytosine 1,500 mg 02/17/24 18:00 02/20/24 11:53
Flucytosine 500 Mg Capsule (Special Order Item) PO 02/27/24 17:59 1,500 mg
Q6 UMAIR Administration
Amphotericin B 250 mg/ 212.5 mls @ 106.25 mls/hr 02/17/24 18:00 02/19/24 18:51
Dextrose IV 03/17/24 19:59 212.5 mls
Q24H UMAIR Administration
Dextrose 50 mls @ 0 mls/hr 02/17/24 17:50 02/19/24 21:49
D5w IV 03/17/24 20:11 50 mls
BID@1750,2010 UMAIR Administration
UD
Sodium Chloride 500 mls @ 500 mls/hr 02/18/24 17:00 02/19/24 17:52
Nss IV 03/17/24 17:59 500 mls
Q24H UMAIR Administration
Sodium Chloride 1,000 mls @ 70 mls/hr 02/18/24 14:30 02/20/24 11:54
Nss IV 1,000 mls
[id number] UMAIR Administration
Magnesium Oxide 500 mg 02/17/24 20:00 02/20/24 10:40
Magnesium Oxide 500 Mg Tablet PO 03/16/24 19:59 500 mg
BID UMAIR Administration
Multivitamins Therapeutic 1 tablet 02/18/24 08:00 02/20/24 10:39
Multivitamin Tablet PO 03/17/24 07:59 1 tablet
DAILY UMAIR Administration
Pantoprazole Sodium 20 mg 02/18/24 08:00 02/20/24 10:41
Pantoprazole 20 Mg Delayed Release Tablet PO 03/17/24 07:59 20 mg
DAILY UMAIR Administration
Polyethylene Glycol 17 grams 02/17/24 15:53
Polyethylene Glycol Powder 17 Grams Packet PO 03/16/24 15:52
DAILYPRN PRN
constipation
Potassium Chloride 20 meq 02/20/24 08:00 02/20/24 14:29
Potassium Chloride 20 Meq Extended Release Tablet PO 03/19/24 07:59 Not Given
TID UMAIR
Senna/Docusate Sodium 1 tablet 02/17/24 15:53
Docusate W/Senna (Delia-Colace) Tablet PO 03/16/24 15:52
BIDPRN PRN
constipation
Sennosides 17.2 mg 02/17/24 22:00 02/19/24 21:49
Sennosides (Senokot) 8.6 Mg Tablet PO 03/16/24 21:59 Not Given
HS UMAIR
Sodium Chloride 1 gram 02/18/24 08:00 02/20/24 10:40
Sodium Chloride 1 Gram Tablet PO 03/17/24 07:59 1 gram
DAILY UMAIR Administration
Sodium Chloride 0 flush 02/17/24 18:00
Sodium Chloride 0.9% (Flush) Syringe IV 03/16/24 17:59
PER PROTOCOL UMAIR
Home Medications
�Medication �Instructions �Recorded
apixaban 5 mg tablet (Eliquis) 5 mg PO BID #1 tab 02/13/24
aspirin 81 mg chewable tablet 81 mg PO DAILY #30 tabs 02/13/24
atorvastatin 20 mg tablet 20 mg PO DAILY High Cholesterol 02/13/24
#30 tabs
fluconazole 200 mg tablet 400 mg (2 x 200 mg) PO DAILY #1 tab 02/13/24
(Diflucan)
magnesium oxide 500 mg PO BID #30 tabs 02/13/24
acetaminophen 325 mg tablet 650 mg PO Q4HPRN PRN mild pain 02/17/24
(Tylenol)
bisacodyl 10 mg rectal suppository 10 mg NE DAILYPRN PRN constipation 02/17/24
(Dulcolax (bisacodyl))
bisacodyl 5 mg tablet,delayed 10 mg PO DAILYPRN PRN constipation 02/17/24
release (Dulcolax (bisacodyl))
docusate sodium 100 mg capsule 100 mg PO BID 02/17/24
(Colace)
pantoprazole 20 mg tablet,delayed 20 mg PO DAILY 02/17/24
release (Protonix)
sennosides 8.6 mg tablet (Senokot) 17.2 mg PO HS 02/17/24
sodium chloride 1,000 mg soluble 1,000 mg PO DAILY 02/17/24
tablet
therapeutic multivitamin 1 tab PO DAILY 02/17/24
Vital Signs and Labs
-
Vital Signs and Labs:
Vital Signs
Temp Pulse Resp BP Pulse Ox
36.9 C 81 19 150/87 95
02/20/24 18:07 02/20/24 18:06 02/20/24 18:06 02/20/24 18:06 02/20/24 18:06
Lab Results
02/20/24 04:10
02/20/24 04:10
PT 19.5 Sec (11.4-14.6) H 02/17/24 10:13
INR 1.67 02/17/24 10:13
APTT 25.1 Sec (23.4-35.0) 02/17/24 10:13
Sodium 136 mmol/L (135-145) 02/20/24 04:10
Potassium 3.7 mmol/L (3.5-5.1) 02/20/24 04:10
BUN 30 mg/dl (9-20) H 02/20/24 04:10
Glucose 98 mg/dl (70-99) 02/20/24 04:10
Calcium 9.6 mg/dl (8.4-10.2) 02/20/24 04:10
Medications
-
Medications:
Generic Name Dose Route Start Last Admin
Trade Name Freq PRN Reason Stop Dose Admin
Acetaminophen 1,000 mg 02/18/24 17:00 02/20/24 17:11
Acetaminophen 500 Mg Tablet PO 03/17/24 17:01 Not Given
Q24H UMAIR
Acetaminophen 650 mg 02/19/24 14:41 02/20/24 04:12
Acetaminophen 325 Mg Tablet PO 03/18/24 14:40 650 mg
Q4HPRN PRN Administration
headache/mild pain/fever>100.4
Apixaban 5 mg 02/20/24 08:00 02/20/24 10:41
Apixaban (Eliquis) 5 Mg Tablet PO 03/19/24 07:59 5 mg
BID UMAIR Administration
Aspirin 81 mg 02/18/24 08:00 02/20/24 10:41
Aspirin 81 Mg Chewable Tablet PO 03/17/24 07:59 81 mg
DAILY UMAIR Administration
Atorvastatin Calcium 20 mg 02/18/24 08:00 02/20/24 10:40
Atorvastatin (Lipitor) 20 Mg Tablet PO 03/17/24 07:59 20 mg
DAILY UMAIR Administration
Bisacodyl 10 mg 02/17/24 15:53
Bisacodyl 5 Mg Enteric Coated Tablet PO 03/16/24 15:52
DAILYPRN PRN
constipation
Bisacodyl 10 mg 02/17/24 15:53
Bisacodyl 10 Mg Rectal Suppository RECTAL 03/16/24 15:52
[id number] PRN
constipation
Docusate Sodium 100 mg 02/17/24 20:00 02/20/24 10:09
Docusate Sodium 100 Mg Capsule PO 03/16/24 19:59 Not Given
BID UMAIR
Flucytosine 1,500 mg 02/17/24 18:00 02/20/24 17:55
Flucytosine 500 Mg Capsule (Special Order Item) PO 02/27/24 17:59 1,500 mg
Q6 UMAIR Administration
Amphotericin B 250 mg/ 212.5 mls @ 106.25 mls/hr 02/17/24 18:00 02/20/24 17:58
Dextrose IV 03/17/24 19:59 212.5 mls
Q24H UMAIR Administration
Dextrose 50 mls @ 0 mls/hr 02/17/24 17:50 02/20/24 17:51
D5w IV 03/17/24 20:11 50 mls
BID@1750,2009 UMAIR Administration
UD
Sodium Chloride 500 mls @ 500 mls/hr 02/18/24 17:00 02/20/24 17:03
Nss IV 03/17/24 17:59 500 mls
Q24H UMAIR Administration
Sodium Chloride 1,000 mls @ 70 mls/hr 02/18/24 14:30 02/20/24 11:54
Nss IV 1,000 mls
[id number] UMAIR Administration
Magnesium Oxide 500 mg 02/17/24 20:00 02/20/24 10:40
Magnesium Oxide 500 Mg Tablet PO 03/16/24 19:59 500 mg
BID UMAIR Administration
Multivitamins Therapeutic 1 tablet 02/18/24 08:00 02/20/24 10:39
Multivitamin Tablet PO 03/17/24 07:59 1 tablet
DAILY UMAIR Administration
Pantoprazole Sodium 20 mg 02/18/24 08:00 02/20/24 10:41
Pantoprazole 20 Mg Delayed Release Tablet PO 03/17/24 07:59 20 mg
DAILY UMAIR Administration
Polyethylene Glycol 17 grams 02/17/24 15:53
Polyethylene Glycol Powder 17 Grams Packet PO 03/16/24 15:52
DAILYPRN PRN
constipation
Potassium Chloride 20 meq 02/20/24 08:00 02/20/24 14:29
Potassium Chloride 20 Meq Extended Release Tablet PO 03/19/24 07:59 Not Given
TID UMAIR
Senna/Docusate Sodium 1 tablet 02/17/24 15:53
Docusate W/Senna (Delia-Colace) Tablet PO 03/16/24 15:52
BIDPRN PRN
constipation
Sennosides 17.2 mg 02/17/24 22:00 02/19/24 21:49
Sennosides (Senokot) 8.6 Mg Tablet PO 03/16/24 21:59 Not Given
HS UMAIR
Sodium Chloride 1 gram 02/18/24 08:00 02/20/24 10:40
Sodium Chloride 1 Gram Tablet PO 03/17/24 07:59 1 gram
DAILY UMAIR Administration
Sodium Chloride 0 flush 02/17/24 18:00
Sodium Chloride 0.9% (Flush) Syringe IV 03/16/24 17:59
PER PROTOCOL UMAIR
Home Medications
-
Home Medications
apixaban 5 mg tablet (Eliquis) 5 mg PO BID #1 tab 02/13/24
aspirin 81 mg chewable tablet 81 mg PO DAILY #30 tabs 02/13/24
atorvastatin 20 mg tablet 20 mg PO DAILY High Cholesterol #30 tabs 02/13/24
fluconazole 200 mg tablet (Diflucan) 400 mg (2 x 200 mg) PO DAILY #1 tab 02/13/24
magnesium oxide 500 mg PO BID #30 tabs 02/13/24
acetaminophen 325 mg tablet (Tylenol) 650 mg PO Q4HPRN PRN mild pain 02/17/24
bisacodyl 10 mg rectal suppository (Dulcolax (bisacodyl)) 10 mg NE DAILYPRN PRN constipation 02/17/24
bisacodyl 5 mg tablet,delayed release (Dulcolax (bisacodyl)) 10 mg PO DAILYPRN PRN constipation 02/17/24
docusate sodium 100 mg capsule (Colace) 100 mg PO BID 02/17/24
pantoprazole 20 mg tablet,delayed release (Protonix) 20 mg PO DAILY 02/17/24
sennosides 8.6 mg tablet (Senokot) 17.2 mg PO HS 02/17/24
sodium chloride 1,000 mg soluble tablet 1,000 mg PO DAILY 02/17/24
therapeutic multivitamin 1 tab PO DAILY 02/17/24
--- NOTE | 2024-02-20 16:00 | PTCARENOTE ---
Orders placed to transfer pt to IMU level of care, report called to IMU RN, pt changed and PRN tylenol administered for temperature of 102.4 taken for 1500 vital signs. Pt transferred to IMU, now resting comfortably in bed with at bedside. RN
instructed to call this RN with any further questions.
[2024-02-20 16:44] LABS: C.neoformans Antigen Positive (Negative)
[2024-02-20] MEDS: NSS 500 IV (17:03)
[2024-02-20] MEDS: TYLENOL PO (17:11)
[2024-02-20] MEDS: D5W 50 IV ×2 (17:51→20:05)
[2024-02-20] MEDS: AMBISOME 212.5 MG IV (17:58)
--- NOTE | 2024-02-20 22:39 | PTCARENOTE ---
Assumed care for patient overnight, received report via RN. Upon assessment patient was notable drowsy and lethargic. Pt responded to verbal. Able to swallow pills with applesauce and a sip of water. Preformed NIH and scored patient a 14. Notified
SAM Naidu and Dr. Mayfield assistant tennis professional neurology of change on NIH scale and requested a parameter for BP. Awaiting response from neurology for follow up.
[2024-02-20] MEDS: KCL 20 MEQ PO (23:03)
[2024-02-20] MEDS: SENOKOT PO (23:03)
[2024-02-21] VITALS (24 sets, daily range): BP systolic 104–206; BP diastolic 55–133; PULSE 77; O2SAT 96; BMI 19.2
[2024-02-21] MEDS: [UNRECOGNIZED DRUG - OTHER] 1500 MG PO ×3 (06:02→18:28)
[2024-02-21 06:28] LABS: % Basophils 0.8 % (0-2); % Lymphocytes 12.2 % (20.5-51.1); % Monocytes 6.7 % (1.7-9.3); % Neutrophils 77.3 % (42.2-75.2); Absolute Basophils 0.1 10^3/uL (0-0.2); Absolute Eosinophils 0.1 10^3/uL (0-0.7); Absolute Immature Granulocytes 0.2 10^3/uL (0-0.05); Absolute Lymphocytes 1.3 10^3/uL (1.2-3.4); Absolute Monocytes 0.7 10^3/uL (0.1-0.6); Absolute Neutrophils 8.2 10^3/uL (1.4-6.5); Mean Corp Hgb Conc. 36.1 g/dL (33.0-37.0); Mean Corpuscular Hgb 33.3 pg (27.0-31.0); Mean Corpuscular Volume 92.3 fL (80.0-94.0); Mean Platelet Volume 9.7 fL (7.4-10.4); Nucleated Red Blood Cells % 0 % (-); Platelet Count 256 10^3/uL (130-400); Red Cell Dist. Width 11.9 % (11.5-14.5); White Blood Cell Count 10.6 10^3/uL (4.8-10.8)
[2024-02-21 06:46] LABS: Blood Urea Nitrogen 29 mg/dl (9-20); Calcium 9.6 mg/dl (8.4-10.2); Carbon Dioxide 23 mmol/L (22-30); Chloride 98 mmol/L (98-107); Estimated Creatinine Clearance 47 ml/min; Glucose 115 mg/dl (70-99); Magnesium 1.7 mg/dl (1.6-2.3); Sodium 137 mmol/L (135-145); eGFR > 60.00
--- NOTE | 2024-02-21 07:41 | W.PN.HOSP.TC ---
Addendum entered and electronically signed by Jewel Montaño MD 02/21/24 15:48:
I saw and evaluated the patient. I reviewed the resident�s note and agree with findings and plan as documented in the resident�s note.
Patient remains somewhat somnolent, afebrile.
BP remains uncontrolled
Relapsed cryptococcal encephalitis/meningitis
-Repeat LP with opening pressure of 9 mmHg.
-ID involved in care and patient has been resumed back on IV amphotericin B/oral flucytosine
-Monitor for nephrotoxicity
-Repeat therapeutic LP if any signs of increased ICP develops
Midbrain stroke
-Patient had new right upper extreme weakness and right eye lateral gaze palsy
-MRI brain without contrast showing small midbrain stroke
-neurology evaluated and suspecting-cryptococcus meningitis related vasculopathy
-GIL recommended as well although patient unstable for this
-EEG abnormal but no seizure activity
-Discussed with ID/neurology and patient to be resumed back on Eliquis from today evening
Febrile State
-Likely controlled meningitis although ID monitoring for possible aspiration pneumonitis
Acute TME
-Suspected from stroke related
-Monitor electrolytes
Hypokalemia
-On scheduled potassium replacement, given extra potassium 20 mEq
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
Hyperlipidemia--cont lipitor
Thyroid nodule--followed by endocrine but apparently discharged by them--biopsy in 2022 was negative--TSH WNL
DVT prophylaxis
Code status --Full code
Total time spent 55 mins
Original Note:
Today's Communication/Plan
-
Continue antifungal therapy
Restarted Eliquis
Initiated Norvasc
Assessment / Plan
Assessment / Plan
IMPRESSION: This is a 78 year [facility] concerns of altered mental status and fever. He was very recently admitted to from 01/17 to 02/12 for Cryptococcal meningitis and CVA (acute ischemic stroke in the
Left cerebral peduncle).
Assessment:
Fever
Altered mental status
Occlusive thrombus in subclavian, axillary and proximal basilic vein
Hx of cryptococcal meningitis
CVA (acute ischemic stroke in the left cerebral peduncle)
Hyperlipidemia
PLAN:
#Febrile State�Possible Cryptococcal meningitis due to prior very recent infection
-Intermittent fevers
�Head CT today: No significant findings
�Chest x-ray: No significant findings
-ID consulted, appreciated
-Discontinued fluconazole
-WBC 10.1, Creatinine 1.3, lactic acid normal
-blood cultures on 02/16- no growth
-monitor electrolytes
-CSF orders: increased WBC, decreased glucose and increased total protein on 02/16
-LP on 02/17 showed opening pressure of 9
-Continue antifungal therapy (pt was restarted on IV amphotericin B and flucytosine on 02/16)
-Continue maintenance IVF, Already on NSS boluses due to IV amphotericin
-Potassium 3 today. Repleted with IV stat dose, continue PO potassium 20 meq daily TID
-Brain MRI on 02/19 due to altered mental status: New small 0.8 cm acute infarct in the posterior midbrain, New T2/FLAIR hyperintense signal in the posterior left temporal lobe, nonspecific but could be on the basis of a mild encephalitis
-Neuro consult appreciated: GIL pending due to continued pt not being oriented. Will reassess after mental status improvement
-Diet changed to soft and bite sized as per speech
#Elevated Blood Pressure- Essential HTN
-Intiated Norvasc 5mg OD
#Occlusive thrombus in subclavian, axillary and proximal basilic vein on peripheral vasc US on 02/10/24
�Restarted Eliquis (today with PM dose, tomorrow will be usual 5mg BID dose)
#Heart Murmur
- Asymptomatic
� Echo on 02/04: LVEF of 65-70%, Moderate aortic stenosis. Mild aortic regurgitation. Trace tricuspid regurgitation.
#Hyperlipidemia
-Continue statin
Anticipated Discharge: 24 - 48 hours
Subjective/Interval History
-
Date of Service: February 21, 2024
Patient still continues to have some mild waxing and waning effects.
Objective Data
-
Labs:
Laboratory Results
02/21/24
06:02
WBC 10.6
Hgb 13.0
Hct 36.0 L
Plt Count 256
Sodium 137
Potassium 3.0 L
Chloride 98
Carbon Dioxide 23
BUN 29 H
Creatinine 1.1
Glucose 115 H
Calcium 9.6
Vital Signs:
Vital Signs
Temp Pulse Resp BP Pulse Ox
99.9 F 87 24 159/89 96
02/21/24 03:08 02/21/24 06:17 02/21/24 06:17 02/21/24 06:17 02/21/24 06:17
I&O
02/20/24 02/21/24 02/22/24
06:59 06:59 06:59
Intake Total 1456 / 1456 2450 / 2450
Output Total 950 / 950
Balance 1456 / 1456 1500 / 1500
Review of Systems
-
All other systems: Reviewed and negative
Physical Exam
-
General: No Apparent Distress
HEENT: Normocephalic
Respiratory: Clear to Auscultation
Cardiac: Regular Rhythm and S1/S2
GI: Soft, Nontender and Nondistended
Musculoskeletal: No Edema
Skin: Warm and Dry
Neuro: Awake, Alert and Oriented (mildly oriented)
Psych: Calm
--- NOTE | 2024-02-21 07:54 | CON.CAR ---
Addendum entered and electronically signed by Magdiel Sung MD 02/21/24 09:04:
I saw and examined the patient.
The Sugar Sampler's note was reviewed and I agree with the note.
Comment:
GEN: No distress, awake, unoriented
HEENT: supple, anicteric, mmm
LUNGS: CTA, no wheezes/rales
CV: Reg, S1/S2, 2/6 syst LSB, no gallop
ABD: soft, BS+, NT/ND
EXT: No edema
NEURO: confused
SKIN: No rash
Plan:
78-year-old man with past medical history of hyperlipidemia and moderate aortic stenosis presents with change in mental status, generalized weakness, and ambulatory dysfunction. Further evaluation including lumbar puncture and MRI of the brain
revealed cryptococcal meningitis. 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 MRI of the brain revealed new
posterior midbrain stroke. Cardiology was consulted to consider transesophageal echo.
The patient currently is not oriented and confused. He is able to answer a few simple commands.
At this point with his poor mental status, I am not sure how much additional information a transesophageal echo will provide us. He currently is not a candidate for cardiothoracic surgery if he had an endovascular infection. If he had a PFO based
on his age and comorbidities he would not be a candidate for closure.
I would start with a repeat transthoracic echo to evaluate his aortic valve which does have moderate aortic stenosis. Will discuss further with medical, neurology, and infectious disease team, but for now would hold off on IGL.
If his mental status improves and there is a question of the length of time of treatment, could consider GIL at that point.
Continue telemetry to look for paroxysmal atrial fibrillation.
He previously was on Eliquis for a right subclavian/axillary DVT. This is currently held.
Recommend continue antifungals and follow blood cultures.
Original Note:
Consultation
Consultation Request
Date/Time Consultation Performed: 02/21/24
Requesting Provider: Dr. Bah
Performing Provider: Clara Diaz PA-C for Dr. Sung
Reason for Consultation: eval for GIL
Medical History
-
Chief Complaint: fever
History of Present Illness:
Patient is an 78-year-old male with past medical history of hyperlipidemia, aortic stenosis, chronic neck pain, history of thyroid nodule who initially presented to [facility] 01/25/2024 for several weeks of generalized weakness and
ambulatory dysfunction. He underwent lumbar puncture which grew cryptococcus on fungal culture. HIV negative. Due to rapid response on 02/02 underwent repeat brain imaging which showed evidence of acute L stroke. He was placed on Keppra. He
temporarily required a feeding tube which was subsequently stopped as able to tolerate oral intake. He was discharged to [facility], however referred back to ER 02/17/2024 due to fever and lethargy. He was felt to have relapse of cryptococcal
meningitis and is now on longer antifungal course. He was a rapid response yesterday due to change in mental status and underwent brain MRI which showed new posterior midbrain CVA. Concern for recurrent CVA of unknown etiology. Cardiology
consulted for evaluation for GIL. Patient with expressive and receptive aphasia at present. He is able to follow commands.
PMH:
Admission to 01/24 - 02/13/2024 for cryptococcal meningitis, CVA
Hyperlipidemia
Aortic stenosis
Chronic neck pain
History of thyroid nodule
Past Medical History
Past Medical History: Other (in HPI)
Social History
Tobacco: Former Smoker
Alcohol: None
Personal:
Living: Other ([facility] after last admission)
Employment: Retired
Family History
Family History: Unable to Obtain
Allergies / Home Medications
Allergy/AdvReac Type Severity Reaction Status Date / Time
No Known Allergies Allergy Verified 01/25/24 14:02
�Medication �Instructions �Recorded �Confirmed �Type
apixaban 5 mg tablet (Eliquis) 5 mg PO BID #1 tab 02/13/24 02/17/24 Rx
aspirin 81 mg chewable tablet 81 mg PO DAILY #30 tabs 02/13/24 02/17/24 Rx
atorvastatin 20 mg tablet 20 mg PO DAILY High Cholesterol 02/13/24 02/17/24 Rx
#30 tabs
fluconazole 200 mg tablet 400 mg (2 x 200 mg) PO DAILY #1 tab 02/13/24 02/17/24 Rx
(Diflucan)
magnesium oxide 500 mg PO BID #30 tabs 02/13/24 02/17/24 Rx
acetaminophen 325 mg tablet 650 mg PO Q4HPRN PRN mild pain 02/17/24 02/17/24 History
(Tylenol)
bisacodyl 10 mg rectal suppository 10 mg [place] DAILYPRN PRN constipation 02/17/24 02/17/24 History
(Dulcolax (bisacodyl))
bisacodyl 5 mg tablet,delayed 10 mg PO DAILYPRN PRN constipation 02/17/24 02/17/24 History
release (Dulcolax (bisacodyl))
docusate sodium 100 mg capsule 100 mg PO BID 02/17/24 02/17/24 History
(Colace)
pantoprazole 20 mg tablet,delayed 20 mg PO DAILY 02/17/24 02/17/24 History
release (Protonix)
sennosides 8.6 mg tablet (Senokot) 17.2 mg PO HS 02/17/24 02/17/24 History
sodium chloride 1,000 mg soluble 1,000 mg PO DAILY 02/17/24 02/17/24 History
tablet
therapeutic multivitamin 1 tab PO DAILY 02/17/24 02/17/24 History
Review of Systems
-
Unable to obtain full review of systems at this time due to: Other (aphasia)
History Source: Transfer Record and Other (nursing)
All other systems: Negative unless noted
Physical Exam
Vital Signs
Temp Pulse Resp BP Pulse Ox
99.9 F 87 24 159/89 96
02/21/24 03:08 02/21/24 06:17 02/21/24 06:17 02/21/24 06:17 02/21/24 06:17
Lab Results
02/21/24 06:02
02/21/24 06:02
Troponin I 0.030 ng/ml 02/17/24 10:13
Physical Exam
General: No Apparent Distress and Comfortable
HEENT: Normocephalic, Anicteric and Moist Mucous Membranes
Respiratory: Clear and Non Labored Respirations
Cardiac: S1/S2, Regular Rhythm and Murmur
GI: Soft, Non Tender, Non Distended and Normal Bowel Sounds
Musculoskeletal: No Clubbing, No Cyanosis and No Edema
Skin: Warm and Dry
Neuro: Awake and Other (aphasia. able to follow some commands. moves both hands but unable to squeeze my hands, moves L toes but not R)
Impression / Plan
-
Primary Adult And Pediatric Neurologist: none prior to admission
Assessment:
Fever
Lethargy
Relapse of cryptococcal meningitis
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
Receptive and expressive aphasia
Hyponatremia
Hypokalemia
Admission to 01/24 - 02/13/2024 for cryptococcal meningitis, CVA
Hyperlipidemia
Aortic stenosis
Chronic neck pain
History of thyroid nodule
ECHO 07/20/2023: EF 65 to 70%, mild to moderate with peak/mean gradients 38/19 mmHg, GERALD 1.3 cm grade, mild AR
ECHO 02/05/2024: EF 65 to 70%, moderate with peak/mean gradients 45/27 mmHg, GERALD 1.2 cm�, mild AR, PAP 30 to 35 mmHg
Plan:
-Patient with recent admission to [facility] 01/24 - 02/13/2024 for cryptococcal meningitis and CVA who was discharged to [facility] presents back on 02/16 with fever and lethargy. Found to have relapse of cryptococcal meningitis, and now on
prolonged treatment as directed per ID
-Yesterday was a rapid response for change in mental status and found to have new posterior midbrain CVA by MRI. Due to stroke last admission as well, cardiology consulted to evaluate patient for GIL
-He is able to follow some commands, currently undergoing EEG. Remains with receptive and expressive aphasia. Speech following, and reportedly cleared him
-Given current cognitive issues, he is not ideal candidate for GIL
-Will repeat transthoracic echo today, last from 02/04 with results as above
-Pending clinical course could be considered for GIL in future, however unclear if would filter changer as at present not a candidate for surgery/procedures
-Continue to monitor on telemetry. Sinus rhythm with PVCs overnight
-d/w nursing. d/w ID resident
Data Reviewed
-
EKG: Tracing Personally Visualized and interpreted
MRI: Report Reviewed by me
Medical Tests (Nuc Med, Echo etc): Report Reviewed by me
Labs: Labs Reviewed by me
Old Records: Reviewed
[2024-02-21] MEDS: KCL 160 MEQ IV (08:41)
--- NOTE | 2024-02-21 09:07 | PTCARENOTE ---
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
[2024-02-21] MEDS: TYLENOL/FEVERALL 650 MG RECTAL (09:09)
--- NOTE | 2024-02-21 09:13 | W.PN.UPDATE ---
Update Note
Progress Note Update
I saw and evaluated the patient. I reviewed the resident�s seperatly documented note and agree with findings and plan with the following additions/corrections
S:
febrile to 102.4 overnight
BP stable
not following 1 step commands today per medical team
O:
Temp Max last 24 hours Pulse Resp BP Pulse Ox
102.4 87 24 159/89 96
02/20/24 15:18 02/21/24 06:17 02/21/24 06:17 02/21/24 06:17 02/21/24 06:17
Physical Exam
Constitutional: Comfortable
HEENT: dysconjugate gaze remains prominent
Cardiovascular: S1/S2 and Murmur; Negative Rub or Gallop
Pulmonary: Clear; Negative Wheezes, Rales or Rhonchi
Gastrointestinal: Soft, Non Tender, Non Distended and Normal Bowel Sounds
Neurological: sleeping, not disturbed
wbc 10.6
L shift persists - nearly normalized
Na 137
K 3.0
Cr 1.1
Mg 2.0
02/19 CXR: Mild opacity in the posterior basilar left lower lobe which appears unchanged. Diagnostic possibilities are (1) subsegmental atelectasis/scarring or (2) mild pneumonia
02/19 MRI brain: new 0.8 cm acute infarct in posterior midbrain, mild encephalitis
02/16 and 02/18 CSF fungal cultures in progress no growth to date
A&P:
Relapsed Cryptococcal Meningitis
Relapse of Fever
AMS -resolved
Hyponatremia - improved with Na loading
- lipo ampho B now at 4 mg/kg daily
- flucytosine 1500 mg po QID
- appreciate clinical pharmacy assistance with obtaining flucytosine levels
- plan at least 4 weeks of re-induction and possibly longer pending repeat LP at the end of 4 weeks
- a 2018 review of the literature reported 8 cases of cryptococcal endocarditis associated with cryptococcal meningitis in 40 years; almost all patients had hardwear in the heart or were known to be immunocompromised - happily Mr Chandler has neither.
The duration of treatment for cryptococcal meningitis is at least a year. GIL unlikely to change house attendant.
- daily cbc, bmp, mag levels
- aggressive K/mag replacement - appreciate IM service
- avoid nephrotoxic agents as feasible - ok for low dose NSAIDs if needed - careful monitoring of renal function
- pretreatment with tylenol and PRN for rigors/fevers
- daily pretreatment with 500 ccs NS bolus in addition to maintenance fluids
- hydration with normal saline, follow Na closely
- prognosis remains favorable
Probable Aspiration Pneumonitis
- may explain persistnet fevers
- no need for additional antibiotics at this time
Acute Stroke
- appreciate neurology input
- cryptococcus is associated with stroke occasionally, no modifiable risk factors from ID perspective
- follow closely
--- NOTE | 2024-02-21 09:22 | CM ---
Patient seen at bedside in IMU. Patient with temp per nursing. Patient did respond to CM initially. Patient not present at this time. Patient plan is for patient to go back to [facility] and [facility] has accepted patient tentatively, pending
functional status and bed availability. CM will continue to follow for discharge planning needs.
Plan: [facility] vs SNF; pending functional status
--- NOTE | 2024-02-21 09:43 | EEG.RPT ---
Electroencephalogram Report
Recording
Date of EE02/21/24
Type of EEG: Routine
Length of EEG recordin minutes
Done with Video Recording: Yes
Patient Status: Inpatient
Recording Conditions: Awake and Drowsy
Hyperventilation Performed: No
Photic Stimulation Performed: Yes
Report
LESS THAN 1 HOUR EEG INTERPRETATION:
Severely abnormal EEG for age in wakefulness through drowsiness due to triphasic waves and diffuse bihemispheric slowing
CLINICAL CORRELATION:
This study was suggestive of a generalizing process which is most likely secondary to metabolic disturbance causing diffuse cortical dysfunction without focal abnormality. No seizures were recorded. In comparison with a EEG study this was a
significant difference as that study did not demonstrate the above changes.
Clinical correlation is advised.
METHODS:
A 21 channel digitized electroencephalogram (EEG) was performed in the clinical neurophysiology lab. The 10/20 international system of electrode placement was used with ECG and lateral/vertical eye movements recorded. Video was recorded. The
[employer] quantitative review system was utilized.
QUALITY OF STUDY:
Fair
ELECTROENCEPHALOGRAPHER IMPRESSION(S):
Background
Amplitude: Unremarkable
Anterior-Posterior Organization: Fair
Maximum: Theta, usually delta
Asymmetry: None
Sleep: Drowsiness present
Photic Stimulation: Failed to activate the record.
ECG: Normal sinus rhythm
Abnormal EEG activity: Continuous variable bifrontally predominant, at times generalizing, high amplitude triphasic waves lasting up to 1 second each
--- NOTE | 2024-02-21 09:53 | W.PN.NEURO.1 ---
Documented by User: Rosio Garvin NP 02/21/24 10:22
Today's Communication / Plan
-
.
Neuro Assessment/Plan
Assessment
HPI: This is an 78-year-old immunocompetent ambidextrous man who initially presented to on 01/18/2024 with ambulatory dysfunction and fatigue and was diagnosed with cryptococcal meningitis. Hospital course was complicated by occlusive thrombus
in the right subclavian, axillary and proximal basilic veins as well as acute left cerebral peduncle infarct on 02/04/2024 as well as newly discovered acute posterior midbrain infarct.
Brain MRI wo lana(02/20/2024)-new small focus of restricted diffusion in the posterior midbrain at midline measuring 0.8 cm, most compatible with an acute infarct. New T2/FLAIR hyperintense signal in the posterior aspect of the left temporal lobe
LDL-55
EEG 02/21/24: Severely abnormal EEG for age in wakefulness through drowsiness due to triphasic waves and diffuse bihemispheric slowing.
I. Acute posterior midbrain stroke. Likely etiology�lacunar versus embolic. Rule out IE. �Cryptococcal meningitis is known to cause lacunar strokes, especially in the basal ganglia.
II. New T2/FLAIR left temporal lobe signal abnormality(edema vs postictal vs infectious)
III. Subacute L NON GARMENT SEWING MACHINE OPERATOR territory lacunal infarct.
Plan
-Seizure precautions.
-Goal normothermia, rectal Tylenol PRN while patient is lethargic.
-Brain MRI with lana when stable.
-Would recommend GIL when patient is stable.
-ID following.
-ASA 81mg QD.
-Neurological checks and NIHSS per unit protocol. Provide patient with a stroke education packet.
-LDL goal <70. LDL is 55. Okay to continue atorvastatin 20mg daily as LDL is well below goal.
-Goal normoglycemia, hbA1c is 5.4.
-PT/OT/ST.
-DVT prophylaxis.
-Will follow.
Subjective/Objective
Subjective Data
Date of Service: February 21, 2024
24hr events: Tmax 39.1 C, currently 38.8 C axillary. Patient is lethargic, diaphoretic, not following commands.
Objective Data
Vital Signs
Temp Pulse Resp BP Pulse Ox
99.9 F 87 24 159/89 96
02/21/24 03:08 02/21/24 06:17 02/21/24 06:17 02/21/24 06:17 02/21/24 06:17
Lab Results
02/21/24 06:02
02/21/24 06:02
PT 19.5 Sec (11.4-14.6) H 02/17/24 10:13
INR 1.67 02/17/24 10:13
APTT 25.1 Sec (23.4-35.0) 02/17/24 10:13
Sodium 137 mmol/L (135-145) 02/21/24 06:02
Potassium 3.0 mmol/L (3.5-5.1) L 02/21/24 06:02
BUN 29 mg/dl (9-20) H 02/21/24 06:02
Glucose 115 mg/dl (70-99) H 02/21/24 06:02
Calcium 9.6 mg/dl (8.4-10.2) 02/21/24 06:02
Patient Allergies
No Known Allergies Allergy (Verified 01/25/24 14:02)
Review of Systems
-
Unable to obtain full review of systems at this time due to: Lethargy and Aphasia
Physical Exam
-
General: Appears Chronically Ill
Eyes: No Ptosis
HEENT: Normocephalic and Atraumatic
Neck: Unable to Assess
Respiratory: No Dyspnea
GI: Non-distended
Extremities: No Clubbing, No Cyanosis and No Edema
Psych: Unable to Assess
Extended Neurological Exam
Mood & Affect: Unable to Assess
Attention Span & Concentration: Lethargic and Closes Eyes after Stimulation (opens eyes to loud voice)
Memory: Unable to Assess
Speech: Severely Reduced Output and Other (not following commands, minimally verbal)
Cranial Nerve II: Left Eye: Other (resisting eye opening to assess)
Cranial Nerve II: Right Eye: Other (resisting eye opening to assess )
Cranial Nerves III, IV, : Extraocular Movement: Unable to Assess (R eye exophoria on primary gaze, JESÚS EOMs)
Cranial Nerve V: Facial Sensation: Unable to Assess
Cranial Nerve VII: Facial Symmetry: Reduced (right facial droop at rest)
Cranial Nerve VIII: Hearing: Unable to Assess
Cranial Nerves IX, X: Palate Movement: Unable to Assess
Cranial Nerve XI: Shoulder Shrug: Unable to Assess
Cranial Nerve XII: Tongue Protusion: Unable to Assess
Muscle Strength, Overall: Reduced Throughout and Spontaneously Moves (antigravity in BUE, trace movement in BLE)
Muscle Bulk & Tone: Increased Tone
Pronator Drift: Unable to Assess
Deep Tendon Reflexes: 3+
Cold Sensation: Unable to Assess
Vibration Sensation: Unable to Assess
Touch Sensation: Unable to Assess
Coordination: Unable to Assess
Babinski Sign: Unable to Test
Gait & Station: Unable to Assess
Modified Get Score (MRS)
-
Modified [place] Scale (mRS): Severe disability. Requires constant nursing care.
Score: 5
Data Reviewed
-
MRI Head: Report Reviewed and Image Reviewed
EEG: Report Reviewed
Labs: Report Reviewed
Lipid Profile: Report Reviewed
HgbA1C: Report Reviewed
Reviewed with: Physician, Nurse and Patient
Medications
-
Active Medications
Generic Name Dose Route Start Last Admin
Trade Name Freq PRN Reason Stop Dose Admin
Acetaminophen 1,000 mg 02/18/24 17:00 02/20/24 17:11
Acetaminophen 500 Mg Tablet PO 03/17/24 17:01 Not Given
Q24H UMAIR
Acetaminophen 650 mg 02/19/24 14:41 02/20/24 23:34
Acetaminophen 325 Mg Tablet PO 03/18/24 14:40 650 mg
Q4HPRN PRN Administration
headache/mild pain/fever>100.4
Apixaban 5 mg 02/20/24 08:00 02/20/24 10:41
Apixaban (Eliquis) 5 Mg Tablet PO 03/19/24 07:59 5 mg
BID UMAIR Administration
Aspirin 81 mg 02/18/24 08:00 02/21/24 10:16
Aspirin 81 Mg Chewable Tablet PO 03/17/24 07:59 81 mg
DAILY UMAIR Administration
Atorvastatin Calcium 20 mg 02/18/24 08:00 02/20/24 10:40
Atorvastatin (Lipitor) 20 Mg Tablet PO 03/17/24 07:59 20 mg
DAILY UMAIR Administration
Bisacodyl 10 mg 02/17/24 15:53
Bisacodyl 5 Mg Enteric Coated Tablet PO 03/16/24 15:52
DAILYPRN PRN
constipation
Bisacodyl 10 mg 02/17/24 15:53
Bisacodyl 10 Mg Rectal Suppository RECTAL 03/16/24 15:52
[id number] PRN
constipation
Docusate Sodium 100 mg 02/17/24 20:00 02/20/24 20:08
Docusate Sodium 100 Mg Capsule PO 03/16/24 19:59 Not Given
BID UMAIR
Flucytosine 1,500 mg 02/17/24 18:00 02/21/24 06:02
Flucytosine 500 Mg Capsule (Special Order Item) PO 02/27/24 17:59 1,500 mg
Q6 UMAIR Administration
Amphotericin B 250 mg/ 212.5 mls @ 106.25 mls/hr 02/17/24 18:00 02/20/24 17:58
Dextrose IV 03/17/24 19:59 212.5 mls
Q24H UMAIR Administration
Dextrose 50 mls @ 0 mls/hr 02/17/24 17:50 02/20/24 20:05
D5w IV 03/17/24 20:11 50 mls
BID@1749,2009 UMAIR Administration
UD
Sodium Chloride 500 mls @ 500 mls/hr 02/18/24 17:00 02/20/24 17:03
Nss IV 03/17/24 17:59 500 mls
Q24H UMAIR Administration
Sodium Chloride 1,000 mls @ 70 mls/hr 02/18/24 14:30 02/21/24 10:15
Nss IV 1,000 mls
.[id number] UMAIR Administration
Magnesium Oxide 500 mg 02/17/24 20:00 02/20/24 20:05
Magnesium Oxide 500 Mg Tablet PO 03/16/24 19:59 500 mg
BID UMAIR Administration
Multivitamins Therapeutic 1 tablet 02/18/24 08:00 02/20/24 10:39
Multivitamin Tablet PO 03/17/24 07:59 1 tablet
DAILY UMAIR Administration
Pantoprazole Sodium 20 mg 02/18/24 08:00 02/21/24 10:16
Pantoprazole 20 Mg Delayed Release Tablet PO 03/17/24 07:59 20 mg
DAILY UMAIR Administration
Polyethylene Glycol 17 grams 02/17/24 15:53
Polyethylene Glycol Powder 17 Grams Packet PO 03/16/24 15:52
DAILYPRN PRN
constipation
Potassium Chloride 20 meq 02/20/24 08:00 02/20/24 23:03
Potassium Chloride 20 Meq Extended Release Tablet PO 03/19/24 07:59 20 meq
TID UMAIR Administration
Senna/Docusate Sodium 1 tablet 02/17/24 15:53
Docusate W/Senna (Delia-Colace) Tablet PO 03/16/24 15:52
BIDPRN PRN
constipation
Sennosides 17.2 mg 02/17/24 22:00 02/20/24 23:03
Sennosides (Senokot) 8.6 Mg Tablet PO 03/16/24 21:59 Not Given
HS UMAIR
Sodium Chloride 1 gram 02/18/24 08:00 02/20/24 10:40
Sodium Chloride 1 Gram Tablet PO 03/17/24 07:59 1 gram
DAILY UMAIR Administration
Sodium Chloride 0 flush 02/17/24 18:00
Sodium Chloride 0.9% (Flush) Syringe IV 03/16/24 17:59
PER PROTOCOL UMAIR
Home Medications
�Medication �Instructions �Recorded
apixaban 5 mg tablet (Eliquis) 5 mg PO BID #1 tab 02/13/24
aspirin 81 mg chewable tablet 81 mg PO DAILY #30 tabs 02/13/24
atorvastatin 20 mg tablet 20 mg PO DAILY High Cholesterol 02/13/24
#30 tabs
fluconazole 200 mg tablet 400 mg (2 x 200 mg) PO DAILY #1 tab 02/13/24
(Diflucan)
magnesium oxide 500 mg PO BID #30 tabs 02/13/24
acetaminophen 325 mg tablet 650 mg PO Q4HPRN PRN mild pain 02/17/24
(Tylenol)
bisacodyl 10 mg rectal suppository 10 mg MN DAILYPRN PRN constipation 02/17/24
(Dulcolax (bisacodyl))
bisacodyl 5 mg tablet,delayed 10 mg PO DAILYPRN PRN constipation 02/17/24
release (Dulcolax (bisacodyl))
docusate sodium 100 mg capsule 100 mg PO BID 02/17/24
(Colace)
pantoprazole 20 mg tablet,delayed 20 mg PO DAILY 02/17/24
release (Protonix)
sennosides 8.6 mg tablet (Senokot) 17.2 mg PO HS 02/17/24
sodium chloride 1,000 mg soluble 1,000 mg PO DAILY 02/17/24
tablet
therapeutic multivitamin 1 tab PO DAILY 02/17/24
NIH Stroke Score
Subsequent NIH Scale
Date of Subsequent NIH Scale: 02/21/24
Time of Subsequent NIH Scale: 09:00
NIH Stroke Score
Level of Consciousness: 1 - Arousable
LOC Questions: 2-Neither correct
LOC Commands: 2-Performs neither correctly
Best Horizontal Gaze: 0-Normal
Visual [place] Leon: 0=Normal, no visual loss
Facial Palsy: 1=Minor paralysis
Motor - Right Arm: 1=Drift < 10 seconds
Motor - Left Arm: 0=No drift 10 seconds
Motor - Right Le-None vs. gravity
Motor - Left Le-None vs. gravity
Limb Ataxia: 0-Absent
Sensation: 0-Normal
Best Language: 2-Severe aphasia
Dysarthria: 2-Severe slurring
Extinction and Inattention: 0-No abnormality
Total Score:: 17
Modified [place] (mRS) Score
Modified Get Scale (mRS): Severe disability. Requires constant nursing care.
Score: 5
Alteplase Contraindication
Inclusion and Exclusion criteria reviewed: Yes
Reasons for NON-Tx with Thrombolytics ABSOLUTE Exclusions: Greater than 4.5 hrs from onset of sxs and Patient taking oral anticoagulant and last dose within 48 hours

Documented by User: Lashaun Mayfield MD 02/21/24 13:02
Modified [place] Score (MRS)
-
Score: 5
NIH Stroke Score
NIH Stroke Score
Total Score:: 17
Modified [place] (mRS) Score
Score: 5
[2024-02-21] MEDS: NSS 1000 IV (10:15)
[2024-02-21] MEDS: PROTONIX 20 MG PO (10:16)
[2024-02-21] MEDS: LOW STRENGTH ASPIRIN 81 MG PO (10:16)
[2024-02-21] MEDS: LIPITOR 20 MG PO (10:28)
[2024-02-21] MEDS: COLACE PO ×2 (10:28→21:15)
[2024-02-21] MEDS: KCL 20 MEQ PO ×3 (10:28→21:15)
[2024-02-21] MEDS: SODIUM CHLORIDE 1 GRAM PO (10:28)
[2024-02-21] MEDS: MAGNESIUM OXIDE 500 MG PO ×2 (10:28→21:15)
[2024-02-21] MEDS: THERAGRAN 1 TABLET PO (10:29)
--- NOTE | 2024-02-21 11:33 | PTOTSP ---
Dysphagia Therapy
Patient presents with signs of mild-moderate oral and suspect mild pharyngeal dysphagia exacerbated by worsened BELLO/AMS.
Recommend:
1. IDDSI Level 6 Soft/Bite Sized, Thin Liquids
2. Medications - crushed in puree if medically cleared
3. Strategies: upright to 90 degrees, PO only when awake/alert, 1:1 supervision/assistance, small single sips/bites, slow rate, cue to swallow and watch or/feel for charu's apple to move before giving next sip/bite, check for oral clearance/pocketing
on right
4. Oral care 3x daily
5. Dysphagia tx at the acute care level for on-going assessment, education, and to determine if video swallow study warranted.
[2024-02-21] MEDS: NORVASC 5 MG PO (12:12)
--- NOTE | 2024-02-21 15:21 | W.PN.ID1 ---
Date of Service
Date of Service: February 21, 2024
Today's Communication
Continue Amphotericin and flucytosine.
Adequate hydration, potassium and magnesium replacement.
Monitor electrolytes and CBC.
Assessment / Plan
Assessment-
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
fever, altered mental status.
FUO- Possible cryptococcal meningitis relapse.
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
AOx3, CSF analysis evident for elevated CSF WBC at 256, granulocytes 34, lymphocytes 31, macrophages 35, glucose less than 20, total protein 260. Repeat CSF analysis on 02/18-CSF glucose less than 20, CSF protein 368. CSF fluid cryptococcus
neoformans antigen testing positive. CSF PCR panel negative for cryptococcal neoformans/Taylor but the sensitivity for CSF PCR is only 40% for cryptococcus.
Preliminary cultures of CSF-negative in 48 hours.
CBC showed leukocytosis on 02/20/2024- there is a left shift.
Blood cultures x 2 - preliminary results in 48 hours showed no growth.
Urine analysis negative, no urinary tract symptoms-dysuria or pyuria. Even if urine cultures are positive, would be considered as asymptomatic bacteriuria.
COVID antigen negative, influenza PCR negative
Sodium-137, potassium-3.0, magnesium-1.7, calcium-9.6., Cr -1.1
Normal CD4, IgA, IgM during previous admission mildly low IgG at 578.
Chest x-ray showed no infiltrates.
No source of fever identified so far, but based on the CSF analysis patient is restarted on induction therapy.
Has disconjugate gaze and anisocoria. Now associated with nasolabial fold asymmetry and difficulty to raise left arm. CSF opening pressures at 9cm H20.
New onset diagnosis of acute stroke as evidenced by MRI. Speech therapy evaluation negative. EEG results pending. Cryptococcus itself can increase the risk of stroke.
Plan-
Questionable acute stroke, urgent MRI for evaluation.
Restarted flucytosine 1500 mg p.o. inc increased to 4 times daily-day 5,
Currently flucytosine on hold. If evidence of stroke immediate speech therapy eval and NG tube will be needed for flucytosine.
Restarted amphotericin B 250 Mg IV-at 4 mg/kg daily. Hypokalemia noted today.
-Given the adverse effects of amphotericin B monitor daily magnesium, sodium, calcium, potassium levels.
-Aggressive daily potassium replacement.
Recommend maintenance fluids for the patient with NS along with daily pretreatment with 500 cc NS bolus to prevent Amphotericin induced nephrotoxicity.
Avoid nephrotoxic agents.
Euvolemic SIADH during the previous admission, hence I advise careful monitoring of sodium levels with IV fluids.
Very few cases are reported for cryptococcal endocarditis associated with cryptococcal meningitis in 40 years. Almost all patients had hardware in the heart or were known to be immunocompromised. Hence GIL is not likely to change the management of
this patient.
Continue as needed treatment with Tylenol for rigors.
IRIS is also possible (even in immunocompetent patients) and treatment would be steroids if csf is not consistent with relapse given the severity of his symptoms
Possible aspiration pneumonitis on chest x-ray
May explain persistent fevers. Will reevaluate for antibiotics if fevers are not resolving.
Close follow-up.
Chief Complaint
-: Other (Altered mental status.)
Subjective / Review of Systems
Overnight patient developed spikes of fever, with maximum temperature up to 1 of 2.4 overnight.
Was not following one-step commands as per nurse. Patient had an episode of acute stroke yesterday and was shifted to IMU. His speech therapy evaluation was negative and he did not miss any doses of flucytosine.
Review of Systems: Fever, No Headache, No Cough, No Sputum Production, No Chest Pain, No Palpitations, No Abdominal Pain, No Nausea and No Dysuria
Vital Signs / Physical Exam
Vital Signs
Vital Signs
Temp Pulse Resp BP Pulse Ox
99.0 F 69 24 179/86 99
02/21/24 13:18 02/21/24 12:12 02/21/24 06:17 02/21/24 12:12 02/21/24 08:50
Physical Exam
Physical Exam:
Patient was getting EEG, hence I did not examine him.
Objective Data
Lab Data
Lab Results
02/21/24 06:02
02/21/24 06:02
PT 19.5 Sec (11.4-14.6) H 02/17/24 10:13
INR 1.67 02/17/24 10:13
APTT 25.1 Sec (23.4-35.0) 02/17/24 10:13
Estimated Creat Clear 47 ml/min 02/21/24 06:02
Lactic Acid Cancelled 02/17/24 14:15
Total Bilirubin 1.3 mg/dl (0.2-1.3) 02/18/24 09:06
AST 26 U/L (17-59) 02/18/24 09:06
ALT 27 U/L (0-50) 02/18/24 09:06
Alkaline Phosphatase 78 U/L (38-126) 02/18/24 09:06
Most recent labs reviewed.
MRI: Image Reviewed and Report Reviewed
Microbiology: Report Reviewed
Micro Results:
02/17/24 10:13 Blood Culture - Preliminary
Blood/Venous No Growth in 4 days- Final report to follow
02/17/24 15:27 CSF Culture - Preliminary
Csf No Growth After 4 Days
Gram Stain - Preliminary
02/17/24 10:13 Blood Culture - Preliminary
Blood/Venous No Growth in 4 days- Final report to follow
02/19/24 14:20 Fungal Culture - Preliminary
Csf Culture in progress.
Positive cultures are reported as soon as detected.
Final report to follow in four to five weeks.
02/17/24 15:27 Meningitis/Encephalitis Panel (PCR) - Final
Csf
02/17/24 15:27 Fungal Culture - Preliminary
Csf Culture in progress.
Positive cultures are reported as soon as detected.
Final report to follow in four to five weeks.
02/17/24 10:13 Influenza Types A & B (LEO) - Final
Nasal Swab Negative for Influenza A & B, NAAT
Negative results must be combined with clinical observations
and patient history.
Nucleic Acid Amplification test (NAAT)performed on the
[employer] platform.
Meningitis panel - PCR - negative for E. coli K1, H influenza, Listeria monocytogenes, Listeria meningitis, CMV, strep agalactiae, pneumonia, enterovirus, HSV 1 2 and 6, human varicella virus, VZV, C neoformans/Taylor -02/17/24
Previous admission
01/29/2024-CSF cultures positive for cryptococcus neoformans.
Culture sensitivity-COY 1 for amphotericin B, COY 8 for fluconazole, COY 0.12 for voriconazole.
Other: Image Reviewed
[2024-02-21] MEDS: TYLENOL 1000 MG PO (16:31)
[2024-02-21] MEDS: NSS 500 IV (17:19)
[2024-02-21] MEDS: D5W 50 IV ×2 (18:24→20:47)
[2024-02-21] MEDS: AMBISOME 212.5 MG IV (18:27)
--- NOTE | 2024-02-21 19:51 | PTCARENOTE ---
Discussed the difficulty of completing the NIH with Neurology PHONE ENGINEER on rounds this am. Many challenges due to pt inability follow and directions with receptive and expressive aphasia. Pt responds more to 's voice. She is very supportive and
encouraging pt. She was able to feed him. Pt evaluated this am by speech therapy before giving any NPO, he needs constant cueing to open mouth, swallow, etc. follows safe swallow precautions.Pt drowsy in between bedside activities. He sleeps
soundly and snores at times, Heart rate noted to be Bigeminy today, Dr. Merchant notified, Pt did have Potassium rider given and p.o. supplement. No further orders from cardiology. Pt took meds fairly well midday with many cues and encouragement but
this evening pt chewing meds and trying to spit meds out. Pt incontinent of bowel and bladder, changed and turn throughout the day. Pt demonstrated agitation when VAT changed PICC line dressing. 2nd staff member to hold arm as he was pushing at VAT
nurse.
[2024-02-21] MEDS: ELIQUIS 5 MG PO (21:15)
[2024-02-21] MEDS: SENOKOT PO (23:16)
[2024-02-22] VITALS (22 sets, daily range): BP systolic 121–200; BP diastolic 60–120; PULSE 96; O2SAT 96; BMI 18.9
[2024-02-22] MEDS: [UNRECOGNIZED DRUG - OTHER] 1500 MG PO ×5 (00:44→23:30)
[2024-02-22] MEDS: NSS 1000 IV ×2 (02:10→20:59)
[2024-02-22] MEDS: TYLENOL 650 MG PO ×2 (04:34→23:30)
[2024-02-22 04:55] LABS: % Basophils 0.7 % (0-2); % Eosinophils 1.5 % (0-6); % Immature Granulocytes 0.7 % (0-0.5); % Lymphocytes 9.3 % (20.5-51.1); % Monocytes 5.8 % (1.7-9.3); Absolute Basophils 0.1 10^3/uL (0-0.2); Absolute Eosinophils 0.2 10^3/uL (0-0.7); Absolute Immature Granulocytes 0.1 10^3/uL (0-0.05); Absolute Lymphocytes 0.9 10^3/uL (1.2-3.4); Absolute Monocytes 0.6 10^3/uL (0.1-0.6); Absolute Neutrophils 8.3 10^3/uL (1.4-6.5); Hematocrit 33.5 % (39.0-52.0); Hemoglobin 12.1 g/dL (13.0-18.0); Mean Corp Hgb Conc. 36.1 g/dL (33.0-37.0); Mean Corpuscular Hgb 32.3 pg (27.0-31.0); Mean Corpuscular Volume 89.3 fL (80.0-94.0); Mean Platelet Volume 9.6 fL (7.4-10.4); Nucleated Red Blood Cells % 0 % (-); Platelet Count 251 10^3/uL (130-400); Red Blood Cell Count 3.75 10^6/uL (4.70-6.10); White Blood Cell Count 10.1 10^3/uL (4.8-10.8)
[2024-02-22 05:12] LABS: Blood Urea Nitrogen 30 mg/dl (9-20); Calcium 9.6 mg/dl (8.4-10.2); Carbon Dioxide 26 mmol/L (22-30); Chloride 102 mmol/L (98-107); Estimated Creatinine Clearance 51 ml/min; Glucose 122 mg/dl (70-99); Magnesium 1.7 mg/dl (1.6-2.3); Potassium 3.1 mmol/L (3.5-5.1); Sodium 138 mmol/L (135-145); eGFR > 60.00
[2024-02-22] MEDS: [UNRECOGNIZED DRUG - OTHER] PO (06:32)
--- NOTE | 2024-02-22 06:36 | PTCARENOTE ---
Pt was very lethargic and hard to arouse to take his PO medication due this morning. Held off on giving this dose, will pass onto dayshift RN.
[2024-02-22] MEDS: LIPITOR 20 MG PO (08:35)
[2024-02-22] MEDS: PROTONIX 20 MG PO (08:35)
[2024-02-22] MEDS: NORVASC 5 MG PO (08:35)
[2024-02-22] MEDS: LOW STRENGTH ASPIRIN 81 MG PO (08:35)
[2024-02-22] MEDS: ELIQUIS 5 MG PO ×2 (08:40→20:17)
[2024-02-22] MEDS: COLACE PO ×2 (09:04→20:14)
[2024-02-22] MEDS: SODIUM CHLORIDE PO (09:04)
[2024-02-22] MEDS: MAGNESIUM OXIDE PO (09:04)
[2024-02-22] MEDS: KCL PO (09:04)
[2024-02-22] MEDS: THERAGRAN PO (09:05)
--- NOTE | 2024-02-22 09:31 | W.PN.NEURO.1 ---
Today's Communication / Plan
-
.
Subjective/Objective
Subjective Data
Date of Consultation: 02/22/24
Neurology follow note
24h events: febrile, hypertensive up to 200/81.
No active complaints
GIL -pending.
Routine(02/21/2024) triphasic waves and diffuse bihemispheric slowing.
Brain MRI -small 0.8 cm acute infarct in the posterior midbrain.
PMH: cryptococcal meningitis, L cerebellar peduncle stroke, hypothyroidism, cervical DJD/neck pain,
SH: , former smoker, retired; was independent in IADLs prior to the admission.
FH: Not contributory to current presentation
All: No known drug allergies
ROS: Unable due to encephalopathy.
General: Well developed. In no acute distress.
Cardio: Regular rate and rhythm without murmur. Extremities are without cyanosis or edema.
Neuro:
Mental Status: Alert, oriented to name, person not to time or age. Poor attention and comprehension. Follows simple requests intermittently. No hemineglect.
Cranial Nerves: Right exophoria on primary gaze. Pupils are equally round and reactive to light. Blink to threat bilaterally. No ptosis. No nystagmus. Right nasolabial fold flattening. Severe hypophonia.
Motor: Mild right pronator drift, all limbs are antigravity.
Reflexes: Negative grasp and clonus.
Sensory: Limited exam due to poor attention.
Coordination: No tremors myoclonic movements.
Gait: deferred
Assessment and Plan:
I. Acute posterior midbrain stroke. Likely etiology�lacunar versus embolic. Rule out IE. �Cryptococcal meningitis is known to cause lacunar strokes, especially in the basal ganglia.
II. New T2/FLAIR left temporal lobe signal abnormality(edema vs postictal vs infectious)
III. Subacute L BILL DISTRIBUTOR territory lacunal infarct
-Seizure precautions
-GIL
-ASA 81mg QD
-Please recall neurology service after GIL is completed.
I personally reviewed all radiology and labs along with past medical records pertinent to current medical problems. Total time spent in patient care is 35 minutes.
Thank you for allowing us to participate in the care of this patient. We will continue to follow. Please do not hesitate to contact us with any questions or concerns
Objective Data
Vital Signs
Temp Pulse Resp BP Pulse Ox
36.3 C 80 14 148/68 95
02/22/24 07:54 02/22/24 05:00 02/22/24 05:00 02/22/24 05:00 02/22/24 05:00
Lab Results
02/22/24 04:30
02/22/24 04:30
PT 19.5 Sec (11.4-14.6) H 02/17/24 10:13
INR 1.67 02/17/24 10:13
APTT 25.1 Sec (23.4-35.0) 02/17/24 10:13
Sodium 138 mmol/L (135-145) 02/22/24 04:30
Potassium 3.1 mmol/L (3.5-5.1) L 02/22/24 04:30
BUN 30 mg/dl (9-20) H 02/22/24 04:30
Glucose 122 mg/dl (70-99) H 02/22/24 04:30
Calcium 9.6 mg/dl (8.4-10.2) 02/22/24 04:30
Patient Allergies
No Known Allergies Allergy (Verified 01/25/24 14:02)
Vital Signs and Labs
-
Vital Signs and Labs:
Vital Signs
Temp Pulse Resp BP Pulse Ox
36.3 C 80 14 148/68 95
02/22/24 07:54 02/22/24 05:00 02/22/24 05:00 02/22/24 05:00 02/22/24 05:00
Lab Results
02/22/24 04:30
02/22/24 04:30
PT 19.5 Sec (11.4-14.6) H 02/17/24 10:13
INR 1.67 02/17/24 10:13
APTT 25.1 Sec (23.4-35.0) 02/17/24 10:13
Sodium 138 mmol/L (135-145) 02/22/24 04:30
Potassium 3.1 mmol/L (3.5-5.1) L 02/22/24 04:30
BUN 30 mg/dl (9-20) H 02/22/24 04:30
Glucose 122 mg/dl (70-99) H 02/22/24 04:30
Calcium 9.6 mg/dl (8.4-10.2) 02/22/24 04:30
Medications
-
Medications:
Generic Name Dose Route Start Last Admin
Trade Name Freq PRN Reason Stop Dose Admin
Acetaminophen 1,000 mg 02/18/24 17:00 02/21/24 16:31
Acetaminophen 500 Mg Tablet PO 03/17/24 17:01 1,000 mg
Q24H UMAIR Administration
Acetaminophen 650 mg 02/19/24 14:41 02/22/24 04:34
Acetaminophen 325 Mg Tablet PO 03/18/24 14:40 650 mg
Q4HPRN PRN Administration
headache/mild pain/fever>100.4
Amlodipine Besylate 5 mg 02/21/24 12:00 02/22/24 08:35
Amlodipine 5 Mg Tablet PO 03/20/24 11:59 5 mg
DAILY UMAIR Administration
Apixaban 5 mg 02/21/24 20:00 02/22/24 08:40
Apixaban (Eliquis) 5 Mg Tablet PO 03/20/24 19:59 5 mg
BID UMAIR Administration
Aspirin 81 mg 02/18/24 08:00 02/22/24 08:35
Aspirin 81 Mg Chewable Tablet PO 03/17/24 07:59 81 mg
DAILY UMAIR Administration
Atorvastatin Calcium 20 mg 02/18/24 08:00 02/22/24 08:35
Atorvastatin (Lipitor) 20 Mg Tablet PO 03/17/24 07:59 20 mg
DAILY UMAIR Administration
Bisacodyl 10 mg 02/17/24 15:53
Bisacodyl 5 Mg Enteric Coated Tablet PO 03/16/24 15:52
DAILYPRN PRN
constipation
Bisacodyl 10 mg 02/17/24 15:53
Bisacodyl 10 Mg Rectal Suppository RECTAL 03/16/24 15:52
[id number] PRN
constipation
Docusate Sodium 100 mg 02/17/24 20:00 02/22/24 09:04
Docusate Sodium 100 Mg Capsule PO 03/16/24 19:59 Not Given
BID UMAIR
Flucytosine 1,500 mg 02/17/24 18:00 02/22/24 08:30
Flucytosine 500 Mg Capsule (Special Order Item) PO 02/27/24 17:59 1,500 mg
Q6 UMAIR Administration
Hydralazine HCl 10 mg 02/21/24 15:42
Hydralazine 20 Mg/Ml Vial IV 03/20/24 15:41
Q4HPRN PRN
FOR SBP > 160 or DBP > 110
Amphotericin B 250 mg/ 212.5 mls @ 106.25 mls/hr 02/17/24 18:00 02/21/24 18:27
Dextrose IV 03/17/24 19:59 212.5 mls
Q24H UMAIR Administration
Dextrose 50 mls @ 0 mls/hr 02/17/24 17:50 02/21/24 20:47
D5w IV 03/17/24 20:11 50 mls
BID@1750,2009 UMAIR Administration
UD
Sodium Chloride 500 mls @ 500 mls/hr 02/18/24 17:00 02/21/24 17:19
Nss IV 03/17/24 17:59 500 mls
Q24H UMAIR Administration
Sodium Chloride 1,000 mls @ 70 mls/hr 02/18/24 14:30 02/22/24 02:10
Nss IV 1,000 mls
.[id number] UMAIR Administration
Potassium Chloride 20 meq/ 160 mls @ 80 mls/hr 02/22/24 09:02
Sodium Chloride IV 02/22/24 11:01
NOW STA
Magnesium Oxide 500 mg 02/17/24 20:00 02/22/24 09:04
Magnesium Oxide 500 Mg Tablet PO 03/16/24 19:59 Not Given
BID UMAIR
Multivitamins Therapeutic 1 tablet 02/18/24 08:00 02/22/24 09:05
Multivitamin Tablet PO 03/17/24 07:59 Not Given
DAILY UMAIR
Pantoprazole Sodium 20 mg 02/18/24 08:00 02/22/24 08:35
Pantoprazole 20 Mg Delayed Release Tablet PO 03/17/24 07:59 20 mg
DAILY UMAIR Administration
Polyethylene Glycol 17 grams 02/17/24 15:53
Polyethylene Glycol Powder 17 Grams Packet PO 03/16/24 15:52
DAILYPRN PRN
constipation
Potassium Chloride 20 meq 02/20/24 08:00 02/22/24 09:04
Potassium Chloride 20 Meq Extended Release Tablet PO 03/19/24 07:59 Not Given
TID UMAIR
Senna/Docusate Sodium 1 tablet 02/17/24 15:53
Docusate W/Senna (Delia-Colace) Tablet PO 03/16/24 15:52
BIDPRN PRN
constipation
Sennosides 17.2 mg 02/17/24 22:00 02/21/24 23:16
Sennosides (Senokot) 8.6 Mg Tablet PO 03/16/24 21:59 Not Given
HS UMAIR
Sodium Chloride 1 gram 02/18/24 08:00 02/22/24 09:04
Sodium Chloride 1 Gram Tablet PO 03/17/24 07:59 Not Given
DAILY UMAIR
Sodium Chloride 0 flush 02/17/24 18:00
Sodium Chloride 0.9% (Flush) Syringe IV 03/16/24 17:59
PER PROTOCOL UMAIR
Home Medications
-
Home Medications
apixaban 5 mg tablet (Eliquis) 5 mg PO BID #1 tab 02/13/24
aspirin 81 mg chewable tablet 81 mg PO DAILY #30 tabs 02/13/24
atorvastatin 20 mg tablet 20 mg PO DAILY High Cholesterol #30 tabs 02/13/24
fluconazole 200 mg tablet (Diflucan) 400 mg (2 x 200 mg) PO DAILY #1 tab 02/13/24
magnesium oxide 500 mg PO BID #30 tabs 02/13/24
acetaminophen 325 mg tablet (Tylenol) 650 mg PO Q4HPRN PRN mild pain 02/17/24
bisacodyl 10 mg rectal suppository (Dulcolax (bisacodyl)) 10 mg MS DAILYPRN PRN constipation 02/17/24
bisacodyl 5 mg tablet,delayed release (Dulcolax (bisacodyl)) 10 mg PO DAILYPRN PRN constipation 02/17/24
docusate sodium 100 mg capsule (Colace) 100 mg PO BID 02/17/24
pantoprazole 20 mg tablet,delayed release (Protonix) 20 mg PO DAILY 02/17/24
sennosides 8.6 mg tablet (Senokot) 17.2 mg PO HS 02/17/24
sodium chloride 1,000 mg soluble tablet 1,000 mg PO DAILY 02/17/24
therapeutic multivitamin 1 tab PO DAILY 02/17/24
[2024-02-22] MEDS: KCL 160 MEQ IV (09:40)
[2024-02-22] MEDS: NSS IV (10:15)
--- NOTE | 2024-02-22 10:41 | W.PN.HOSP.TC ---
Today's Communication/Plan
-
monitor electrolytes
PT/OT as tolerated
monitor T curve
monitor mentation improvement
maintain on eliquis
Assessment / Plan
Assessment / Plan
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
-Repeat LP with opening pressure of 9 mmHg.
-ID involved in care and patient has been resumed back on IV amphotericin B/oral flucytosine
-Monitor for nephrotoxicity
-Repeat therapeutic LP if any signs of increased ICP develops
-continue monitoring electrolytes K/mg/ca
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
-Patient had new right upper extreme weakness and right eye lateral gaze palsy
-MRI brain without contrast showing small midbrain stroke
-ST cleared for dysphagia diet.
-neurology evaluated and suspecting-cryptococcus meningitis related vasculopathy
-GIL recommended as well although patient unstable for this. TTE did not show any new findings.
-EEG abnormal but no seizure activity
-Discussed with ID/neurology and patient to be resumed back on Eliquis.
Febrile State
-Likely controlled meningitis although ID monitoring for possible aspiration pneumonitis
Acute TME
-Suspected from stroke related? vs cryptococcal infection related
-Avoid sedative medication
-Continue supportive care
-Patient declining on/off oral meds, will need NGT if cant take oral meds.
Right UE DVT
- involving rt subclavian,axillary and proximal basiallary vein on 02/09
- maintain on eliquis therapy
Hypokalemia
-On scheduled potassium replacement, given extra potassium 20 mEq
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
-resolved
Hyperlipidemia--cont lipitor
Thyroid nodule
-followed by endocrine but apparently discharged by them--biopsy in 2022 was negative--TSH WNL
DVT prophylaxis
Code status --Full code
Total time spent : 53 mins
Anticipated Discharge: > 48 hours
Subjective/Interval History
-
Date of Service: February 22, 2024
remains somnolent and minimally confused
febrile with Tmax of 101.3 F in night
no other issues reported
Objective Data
-
Labs:
Laboratory Results
02/22/24
04:30
WBC 10.1
Hgb 12.1 L
Hct 33.5 L
Plt Count 251
Sodium 138
Potassium 3.1 L
Chloride 102
Carbon Dioxide 26
BUN 30 H
Creatinine 1.0
Glucose 122 H
Calcium 9.6
Vital Signs:
Vital Signs
Temp Pulse Resp BP Pulse Ox
97.4 F 80 14 148/68 95
02/22/24 07:54 02/22/24 05:00 02/22/24 05:00 02/22/24 05:00 02/22/24 05:00
I&O
02/21/24 02/22/24 02/23/24
06:59 06:59 06:59
Intake Total 2450 / 2450 1420 / 1420
Output Total 950 / 950 500 / 500
Balance 1500 / 1500 920 / 920
Review of Systems
-
Respiratory: Reports No Symptoms
Cardiac: Reports No Symptoms
Abdomen/GI: Reports No Symptoms
Physical Exam
-
General: Comfortable
HEENT: Negative Oxygen
Respiratory: Clear to Auscultation
Cardiac: Regular Rhythm and S1/S2; Negative Murmur or Rub
GI: Soft, Nontender and Nondistended
Musculoskeletal: No Edema
Neuro: Awake, Alert, Facial Droop (Right side, RUE motor power 4/5) and Other (withdrawn)
--- NOTE | 2024-02-22 11:45 | W.PN.UPDATE ---
Update Note
Progress Note Update
patient out of the room on rounds for mri
chart reviewed
plans as below
Relapsed Cryptococcal Meningitis
Relapse of Fever
AMS -resolved
Hyponatremia - improved with Na loading
- lipo ampho B now at 4 mg/kg daily
- flucytosine 1500 mg po QID
- appreciate clinical pharmacy assistance with obtaining flucytosine levels
- plan at least 4 weeks of re-induction and possibly longer pending repeat LP at the end of 4 weeks
- a 2019 review of the literature reported 8 cases of cryptococcal endocarditis associated with cryptococcal meningitis in 40 years; almost all patients had hardwear in the heart or were known to be immunocompromised - happily Mr Chandler has neither.
The duration of treatment for cryptococcal meningitis is at least a year. 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
- daily cbc, bmp, mag levels
- aggressive K/mag replacement - appreciate IM service
- avoid nephrotoxic agents as feasible - ok for low dose NSAIDs if needed - careful monitoring of renal function
- pretreatment with tylenol and PRN for rigors/fevers
- daily pretreatment with 500 ccs NS bolus in addition to maintenance fluids
- hydration with normal saline, follow Na closely
- prognosis remains favorable
Probable Aspiration Pneumonitis
Persistent fevers
- pneumonitis may explain persistent fevers
- blood cultures x2, ua and sputum cultures
- no need for additional antibiotics at this time - if fever ongoing through today will add ceftiraxone
Acute Stroke
- appreciate neurology input
- cryptococcus is associated with stroke occasionally, no modifiable risk factors from ID perspective
- follow closely
--- NOTE | 2024-02-22 13:54 | PTOTSP ---
Speech Pathology
Follow up
Patient received lying in bed asleep. Awoken with verbal cues, then fell back to sleep. Lethargic/difficulty staying alert. Kept mouth shut when initiating PO trials, asking to rest. Will wait to continue dysphagia tx when patient is more awake and
alert. Notified RN.
[2024-02-22] MEDS: KCL 20 MEQ PO ×2 (16:14→21:04)
[2024-02-22] MEDS: TYLENOL 1000 MG PO (16:14)
[2024-02-22] MEDS: NSS 500 IV (16:44)
[2024-02-22 17:43] LABS: Glucose - Point of Care 138 mg/dl (70-99)
[2024-02-22] MEDS: D5W 50 IV ×2 (17:53→19:16)
[2024-02-22] MEDS: AMBISOME 212.5 MG IV (17:53)
[2024-02-22] MEDS: MAGNESIUM OXIDE 500 MG PO (20:17)
[2024-02-22 20:25] LABS: Potassium 3.7 mmol/L (3.5-5.1)
[2024-02-22] MEDS: SENOKOT PO (23:19)
[2024-02-23] VITALS (28 sets, daily range): BP systolic 93–218; BP diastolic 39–196; BMI 19.1
--- NOTE | 2024-02-23 03:45 | PTCARENOTE ---
Patient drowsy but arousable, able to follow with his eyes. Pt able to take oral pills with applesauce and sips of water. Pt unable to follow simple commands. NIH scored 14. Pt is normal sinus with PVC on tele. Temp was 100.5 with rigor, given PO
PRN tylenol. Held bowel medications due to loose BM during the day, relayed by yoan DODD. Pt being turned every 2 hours due to lack of ability to turn self. Skin is intact. Heels floating on pillows. Pt bathed. PICC dressing is dry and intact. Pt
appears to be resting comfortably in bed.
[2024-02-23] MEDS: [UNRECOGNIZED DRUG - OTHER] 1500 MG PO ×3 (05:06→18:04)
[2024-02-23] MEDS: TYLENOL 650 MG PO ×3 (05:06→22:11)
[2024-02-23 05:13] LABS: % Basophils 0.7 % (0-2); % Eosinophils 2.8 % (0-6); % Immature Granulocytes 0.5 % (0-0.5); % Lymphocytes 12.1 % (20.5-51.1); % Monocytes 5.8 % (1.7-9.3); % Neutrophils 78.1 % (42.2-75.2); Absolute Basophils 0.1 10^3/uL (0-0.2); Absolute Eosinophils 0.3 10^3/uL (0-0.7); Absolute Immature Granulocytes 0.1 10^3/uL (0-0.05); Absolute Lymphocytes 1.2 10^3/uL (1.2-3.4); Absolute Monocytes 0.6 10^3/uL (0.1-0.6); Hemoglobin 12.2 g/dL (13.0-18.0); Mean Corp Hgb Conc. 35.9 g/dL (33.0-37.0); Mean Corpuscular Hgb 32.3 pg (27.0-31.0); Mean Corpuscular Volume 89.9 fL (80.0-94.0); Mean Platelet Volume 9.4 fL (7.4-10.4); Nucleated Red Blood Cells % 0 % (-); Platelet Count 258 10^3/uL (130-400); Red Blood Cell Count 3.78 10^6/uL (4.70-6.10); White Blood Cell Count 10.2 10^3/uL (4.8-10.8)
[2024-02-23] MEDS: APRESOLINE 10 MG IV ×3 (05:18→22:26)
--- NOTE | 2024-02-23 05:24 | PTCARENOTE ---
Gave pt PRN tylenol for rigors, seems to improve. Pt BP was 206/94 and given PRN hydralazine via IV.
[2024-02-23 05:30] LABS: Blood Urea Nitrogen 37 mg/dl (9-20); Carbon Dioxide 24 mmol/L (22-30); Chloride 105 mmol/L (98-107); Estimated Creatinine Clearance 43 ml/min; Glucose 118 mg/dl (70-99); Magnesium 1.8 mg/dl (1.6-2.3); Sodium 140 mmol/L (135-145); eGFR > 60.00
[2024-02-23] MEDS: MAGNESIUM OXIDE 500 MG PO ×2 (09:10→22:13)
[2024-02-23] MEDS: LOW STRENGTH ASPIRIN 81 MG PO (09:11)
[2024-02-23] MEDS: ELIQUIS 5 MG PO ×2 (09:12→22:13)
[2024-02-23] MEDS: NORVASC 5 MG PO (09:14)
[2024-02-23] MEDS: KCL 20 MEQ PO ×2 (09:15→09:16)
[2024-02-23] MEDS: THERAGRAN 1 TABLET PO (09:17)
[2024-02-23] MEDS: LIPITOR 20 MG PO (09:17)
[2024-02-23] MEDS: SODIUM CHLORIDE 1 GRAM PO (09:18)
[2024-02-23] MEDS: COLACE PO (09:22)
[2024-02-23] MEDS: PROTONIX 20 MG PO (09:27)
[2024-02-23] MEDS: NSS 1000 IV (10:55)
[2024-02-23] MEDS: PROCARDIA XL (EXTENDED RELEASE) 30 MG PO ×2 (10:55→22:13)
--- NOTE | 2024-02-23 11:12 | W.PN.ID1 ---
Date of Service
Date of Service: February 23, 2024
Today's Communication
ceftriaxone
covid ag
c/w ampho and flucytosine
Assessment / Plan
Relapsed Cryptococcal Meningitis
Relapse of Fever
AMS -resolved
Hyponatremia - improved with Na loading
- lipo ampho B at 4 mg/kg daily
- flucytosine 1500 mg po QID
- appreciate clinical pharmacy assistance with obtaining flucytosine levels
- plan at least 4 weeks of re-induction and possibly longer pending repeat LP at the end of 4 weeks
- a 2019 review of the literature reported 8 cases of cryptococcal endocarditis associated with cryptococcal meningitis in 40 years; almost all patients had hardwear in the heart or were known to be immunocompromised - happily Mr Chandler has neither.
The duration of treatment for cryptococcal meningitis is at least a year. 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
- daily cbc, bmp, mag levels
- aggressive K/mag replacement - appreciate IM service
- avoid nephrotoxic agents as feasible - ok for low dose NSAIDs if needed - careful monitoring of renal function
- pretreatment with tylenol and PRN for rigors/fevers
- daily pretreatment with 500 ccs NS bolus in addition to maintenance fluids
- hydration with normal saline, follow Na closely
- prognosis remains favorable
Persistent fevers
Possible developing aspiration pneumonia, from pneumonitis
- pneumonitis may explain persistent fevers
- blood cultures x2, ua unrevealing
- sputum culture is pending
- add ceftriaxone
Acute Stroke
- appreciate neurology input
- cryptococcus is associated with stroke occasionally, no modifiable risk factors from ID perspective
- follow closely
Chief Complaint
-: Other (Altered mental status.)
Subjective / Review of Systems
fevers ongoing
developing accelerated htn - management per hospitalist
had rigor this am
eating breakfast with wifes assistance
only complaint is headache
Vital Signs / Physical Exam
Vital Signs
Vital Signs
Temp Pulse Resp BP Pulse Ox
99.0 F 86 18 214/135 97
02/23/24 04:41 02/23/24 10:55 02/23/24 06:00 02/23/24 11:05 02/23/24 06:00
Physical Exam
Constitutional: No Acute Distress and Chronically Ill
Cardiovascular: Regular Rate and S1/S2; Negative Murmur or Rub
Pulmonary: Clear and Symmetric; Negative Wheezes or Rales
Gastrointestinal: Soft, Non Tender, Non Distended and Normal Bowel Sounds
Skin: Warm and Dry; Negative Rash or Jaundice
Objective Data
Lab Data
Lab Results
02/23/24 05:01
02/23/24 05:01
PT 19.5 Sec (11.4-14.6) H 02/17/24 10:13
INR 1.67 02/17/24 10:13
APTT 25.1 Sec (23.4-35.0) 02/17/24 10:13
Estimated Creat Clear 43 ml/min 02/23/24 05:01
Lactic Acid Cancelled 02/17/24 14:15
Total Bilirubin 1.3 mg/dl (0.2-1.3) 02/18/24 09:06
AST 26 U/L (17-59) 02/18/24 09:06
ALT 27 U/L (0-50) 02/18/24 09:06
Alkaline Phosphatase 78 U/L (38-126) 02/18/24 09:06
Most recent labs reviewed.
Micro Results:
02/22/24 21:02 Blood Culture - Pending
Blood/Venous
02/22/24 19:56 Blood Culture - Pending
Blood/Venous
02/17/24 10:13 Blood Culture - Final
Blood/Venous No Growth - Final Report
02/17/24 15:27 CSF Culture - Final
Csf No Growth After 5 Days - Final Report
Gram Stain - Final
02/17/24 10:13 Blood Culture - Final
Blood/Venous No Growth - Final Report
02/19/24 14:20 Fungal Culture - Preliminary
Csf Culture in progress.
Positive cultures are reported as soon as detected.
Final report to follow in four to five weeks.
02/17/24 15:27 Meningitis/Encephalitis Panel (PCR) - Final
Csf
02/17/24 15:27 Fungal Culture - Preliminary
Csf Culture in progress.
Positive cultures are reported as soon as detected.
Final report to follow in four to five weeks.
02/17/24 10:13 Influenza Types A & B (LEO) - Final
Nasal Swab Negative for Influenza A & B, NAAT
Negative results must be combined with clinical observations
and patient history.
Nucleic Acid Amplification test (NAAT)performed on the
[employer] platform.
[2024-02-23] MEDS: ROCEPHIN 1000 MG IV (12:05)
[2024-02-23 12:47] LABS: COVID-19 Antigen Negative (Negative)
--- NOTE | 2024-02-23 15:17 | W.PN.HOSP.TC ---
Today's Communication/Plan
-
see note
Assessment / Plan
Assessment / Plan
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
-Repeat LP with opening pressure of 9 mmHg.
-ID involved in care and patient has been resumed back on IV amphotericin B/oral flucytosine
-Monitor for nephrotoxicity, cr 1.2 today and monitor.
-Repeat therapeutic LP if any signs of increased ICP develops
-continue monitoring electrolytes K/mg/ca
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
-Patient had new right upper extreme weakness and right eye lateral gaze palsy
-MRI brain without contrast showing small midbrain stroke
-ST cleared for dysphagia diet.
-neurology evaluated and suspecting-cryptococcus meningitis related vasculopathy
-GIL recommended as well although patient unstable for this. TTE did not show any new findings.
-EEG abnormal but no seizure activity
-Discussed with ID/neurology and patient to be resumed back on Eliquis.
FUO
Suspected aspiration pneumonitis
-Likely controlled meningitis although ID monitoring for possible aspiration pneumonitis
-abx per ID
Acute TME
-Suspected from stroke related? vs cryptococcal infection related
-Avoid sedative medication
-Continue supportive care
-Patient declining on/off oral meds, will need NGT if cant take oral meds.
Right UE DVT
- involving rt subclavian,axillary and proximal basillar vein on 02/09
- maintain on Eliquis therapy
Hypokalemia
-patient continue to be hypokalemic despite 60meq K
-increased Kcl to 40 BID
-mg remains WNL
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
-resolved
Hyperlipidemia--cont lipitor
Thyroid nodule
-followed by endocrine but apparently discharged by them--biopsy in 2022 was negative--TSH WNL
DVT prophylaxis
Code status --Full code
Care plan discussed with ID.
Anticipated Discharge: > 48 hours
Subjective/Interval History
-
Date of Service: February 23, 2024
remains somnolent
febrile in night
no other acute events
Objective Data
-
Labs:
Laboratory Results
02/23/24
05:01
WBC 10.2
Hgb 12.2 L
Hct 34.0 L
Plt Count 258
Sodium 140
Potassium 3.0 L
Chloride 105
Carbon Dioxide 24
BUN 37 H
Creatinine 1.2
Glucose 118 H
Calcium 10.0
Vital Signs:
Vital Signs
Temp Pulse Resp BP Pulse Ox
99.7 F 86 18 214/135 97
02/23/24 07:20 02/23/24 10:55 02/23/24 06:00 02/23/24 11:05 02/23/24 06:00
I&O
02/22/24 02/23/24 02/24/24
06:59 06:59 06:59
Intake Total 1420 / 1420 2270 / 2270 240 / 240
Output Total 500 / 500 2250 / 2250
Balance 920 / 920 20 / 20 240 / 240
Review of Systems
-
Unable to obtain full review of systems at this time due to: Acuity
Physical Exam
-
General: Comfortable
HEENT: Negative Oxygen
Respiratory: Clear to Auscultation
Cardiac: Regular Rhythm and S1/S2; Negative Murmur or Rub
GI: Soft, Nontender and Nondistended
Musculoskeletal: No Edema
Neuro: Awake, Facial Droop (Right side, RUE motor power 4/5) and Other (withdrawn)
[2024-02-23] MEDS: TYLENOL 1000 MG PO (16:16)
[2024-02-23] MEDS: NSS 500 IV (16:18)
[2024-02-23] MEDS: D5W 50 IV ×2 (17:56→20:48)
[2024-02-23] MEDS: AMBISOME 212.5 MG IV (17:58)
[2024-02-23] MEDS: COLACE 100 MG PO (22:12)
[2024-02-23] MEDS: SENOKOT 17.2 MG PO (22:12)
[2024-02-23] MEDS: KCL 40 MEQ PO (22:13)
[2024-02-24] VITALS (25 sets, daily range): BP systolic 106–168; BP diastolic 49–106; PULSE 88–92; O2SAT 95; BMI 19.5
[2024-02-24] MEDS: [UNRECOGNIZED DRUG - OTHER] PO (00:06)
[2024-02-24] MEDS: [UNRECOGNIZED DRUG - OTHER] 1500 MG PO ×4 (00:39→17:41)
[2024-02-24 00:53] LABS: Urine Albumin Trace (Neg - Trace); Urine Bilirubin Negative (Negative); Urine Character Clear (Clear); Urine Color Yellow; Urine Glucose Negative (Negative); Urine Ketone Negative (Negative); Urine Leukocyte Trace (Negative); Urine Nitrite Negative (Negative); Urine Occult Blood Negative (Negative); Urine Urobilinogen Negative (Neg - 1+); Urine pH 6.5 (5.0-9.0)
[2024-02-24 01:00] LABS: Urine Bacteria Few (Negative); Urine Mucus Few; Urine Red Blood Cell 0-2 /HPF (0-2)
--- NOTE | 2024-02-24 01:00 | PTCARENOTE ---
Pt able to complete some of NIH. Pt able to answer if he was in pain, medication given see jul. Pt drowsy at times. Verified with lab and pharmacy that peak and trough were drawn and sent out for medication Flucytosine. Pt prn hydralazine, see jul.
[2024-02-24 05:41] LABS: % Basophils 0.6 % (0-2); % Eosinophils 1.4 % (0-6); % Immature Granulocytes 0.6 % (0-0.5); % Lymphocytes 9.9 % (20.5-51.1); % Monocytes 6.2 % (1.7-9.3); % Neutrophils 81.3 % (42.2-75.2); Absolute Basophils 0.1 10^3/uL (0-0.2); Absolute Eosinophils 0.1 10^3/uL (0-0.7); Absolute Immature Granulocytes 0.1 10^3/uL (0-0.05); Absolute Lymphocytes 0.9 10^3/uL (1.2-3.4); Absolute Monocytes 0.6 10^3/uL (0.1-0.6); Absolute Neutrophils 7.8 10^3/uL (1.4-6.5); Hematocrit 32.1 % (39.0-52.0); Hemoglobin 11.4 g/dL (13.0-18.0); Mean Corp Hgb Conc. 35.5 g/dL (33.0-37.0); Mean Corpuscular Hgb 32.5 pg (27.0-31.0); Mean Corpuscular Volume 91.5 fL (80.0-94.0); Mean Platelet Volume 9.2 fL (7.4-10.4); Nucleated Red Blood Cells % 0 % (-); Platelet Count 261 10^3/uL (130-400); Red Blood Cell Count 3.51 10^6/uL (4.70-6.10); Red Cell Dist. Width 12.3 % (11.5-14.5); White Blood Cell Count 9.5 10^3/uL (4.8-10.8)
[2024-02-24 06:11] LABS: Blood Urea Nitrogen 40 mg/dl (9-20); Calcium 9.9 mg/dl (8.4-10.2); Carbon Dioxide 23 mmol/L (22-30); Chloride 105 mmol/L (98-107); Estimated Creatinine Clearance 38 ml/min; Glucose 113 mg/dl (70-99); Magnesium 1.8 mg/dl (1.6-2.3); Potassium 3.3 mmol/L (3.5-5.1); Sodium 141 mmol/L (135-145); eGFR 50.81
--- NOTE | 2024-02-24 07:13 | W.PN.HOSP.TC ---
Addendum entered and electronically signed by Jewel Montaño MD 02/24/24 15:09:
I saw and evaluated the patient. I reviewed the resident�s note and agree with findings and plan as documented in the resident�s note.
Patient remains encephalopathic with waxin/waning mentation. Not on any sedating medication.
Oral intake is limited and considering Dobbhoff tube if not improved in next 24 to 48 hours or if patient cannot take oral medication
Blood pressure remains uncontrolled and also on Procardia XL patient unable to swallow whole and chewing the pills per nurse
Patient remains febrile in the night and ID has started patient on Rocephin for possible aspiration pneumonitis
Patient have worsening renal function today, IV fluid fell of chart yesterday, resume back. Recheck BMP in afternoon
Potassium dosage adjusted to 40 mEq twice daily
Remains appropriate for monitoring in IMU
Total time spent : 53mins
Original Note:
Today's Communication/Plan
-
Continue antifungal therapy
Continue Rocephin
Continue IVF
Monitor potassium
Assessment / Plan
Assessment / Plan
IMPRESSION: This is a 78 year old male patient [facility] with concerns of altered mental status and fever. He was very recently admitted to from 01/17 to 02/12 for Cryptococcal meningitis and CVA (acute ischemic stroke in the
Left cerebral peduncle).
Assessment:
Fever
Altered mental status
Occlusive thrombus in subclavian, axillary and proximal basilic vein
Hx of cryptococcal meningitis
CVA (acute ischemic stroke in the left cerebral peduncle)
Hyperlipidemia
PLAN:
#Relapsed cryptococcal encephalitis/meningitis
-Repeat LP with opening pressure of 9 mmHg.
-ID involved in care and patient has been resumed back on IV amphotericin B/oral flucytosine
-Monitor for nephrotoxicity, cr 1.4 today
-Continue IVF
-Repeat therapeutic LP if any signs of increased ICP develops
-continue monitoring electrolytes K/mg/ca
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
-Patient had new right upper extreme weakness and right eye lateral gaze palsy
-MRI brain on 02/18 without contrast showing small midbrain stroke
-ST cleared for dysphagia diet.
-neurology evaluated and suspecting-cryptococcus meningitis related vasculopathy
-GIL recommended as well although patient unstable for this. TTE did not show any new findings.
-EEG abnormal but no seizure activity
-Continue Eliquis
#Febrile State-possible aspiration pneumonia
-Likely controlled meningitis although ID monitoring for possible aspiration pneumonitis
-Sputum culture pending
-Continue IV Rocephin as per ID
#Acute TME
-Suspected from stroke related? vs cryptococcal infection related
-Avoid sedative medication
-Continue supportive care
-Patient declining on/off oral meds, will need NGT if cant take oral meds.
#Right UE DVT
- involving rt subclavian,axillary and proximal basillar vein on 02/09
- maintain on Eliquis therapy
#Hypokalemia
-patient continue to be hypokalemic despite 60meq K
-Continue Kcl to 40 BID
-K 3.3 today, repeat bmp, monitor
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
-resolved
#Hyperlipidemia
-Continue atorastatin
#Thyroid nodule
-followed by endocrine but apparently discharged by them--biopsy in 2022 was negative--TSH WNL
DVT prophylaxis
Code status --Full code
Anticipated Discharge: 24 - 48 hours
Subjective/Interval History
-
Date of Service: February 24, 2024
Patient continues to be somewhat somnolent/ has waxing and waning periods and is febrile.
Objective Data
-
Labs:
Laboratory Results
02/24/24
05:21
WBC 9.5
Hgb 11.4 L
Hct 32.1 L
Plt Count 261
Sodium 141
Potassium 3.3 L
Chloride 105
Carbon Dioxide 23
BUN 40 H
Creatinine 1.4 H
Glucose 113 H
Calcium 9.9
Vital Signs:
Vital Signs
Temp Pulse Resp BP Pulse Ox
97.4 F 93 13 146/62 95
02/24/24 03:35 02/24/24 06:00 02/24/24 06:00 02/24/24 06:00 02/24/24 06:00
I&O
02/23/24 02/24/24 02/25/24
06:59 06:59 06:59
Intake Total 2270 / 2270 410 / 410
Output Total 2250 / 2250 2800 / 2800
Balance 20 / 20 -2390 / -2390
Review of Systems
-
All other systems: Reviewed and negative
Physical Exam
-
General: No Apparent Distress and Other (Somnolence)
HEENT: Normocephalic
Respiratory: Clear to Auscultation
Cardiac: Regular Rhythm and S1/S2
GI: Soft, Nontender and Nondistended
Musculoskeletal: No Edema
Skin: Warm and Dry
Neuro: Awake and Other (Drowsy)
Psych: Calm
[2024-02-24] MEDS: THERAGRAN 1 TABLET PO (08:56)
[2024-02-24] MEDS: LOW STRENGTH ASPIRIN 81 MG PO (08:56)
[2024-02-24] MEDS: COLACE 100 MG PO ×2 (08:56→21:08)
[2024-02-24] MEDS: KCL 40 MEQ PO ×2 (08:56→21:08)
[2024-02-24] MEDS: LIPITOR 20 MG PO (08:57)
[2024-02-24] MEDS: PROTONIX 20 MG PO (08:57)
[2024-02-24] MEDS: SODIUM CHLORIDE 1 GRAM PO (08:57)
[2024-02-24] MEDS: PROCARDIA XL (EXTENDED RELEASE) 30 MG PO ×2 (08:57→21:09)
[2024-02-24] MEDS: MAGNESIUM OXIDE 500 MG PO ×2 (08:57→21:08)
[2024-02-24] MEDS: ELIQUIS 5 MG PO ×2 (09:45→21:08)
[2024-02-24] MEDS: NSS 1000 IV ×2 (09:46→18:30)
--- NOTE | 2024-02-24 09:49 | W.PN.ID1 ---
Date of Service
Date of Service: February 24, 2024
Today's Communication
continue present management
Assessment / Plan
Relapsed Cryptococcal Meningitis
Relapse of Fever - improving
AMS - intermittent
- lipo ampho B at 4 mg/kg daily
- flucytosine 1500 mg po QID
- appreciate clinical pharmacy assistance with obtaining flucytosine levels - sent out today - will follow up results
- plan at least 4 weeks of re-induction and possibly longer pending repeat LP at the end of 4 weeks - therapy was restarted 02/16
- a 2019 review of the literature reported 8 cases of cryptococcal endocarditis associated with cryptococcal meningitis in 40 years; almost all patients had hardwear in the heart or were known to be immunocompromised - happily Mr Chandler has neither.
The duration of treatment for cryptococcal meningitis is at least a year. GIL unlikely to climate change risk assessor.
- daily cbc, bmp, mag levels
- aggressive K/mag replacement - appreciate IM service
- avoid nephrotoxic agents as feasible - ok for low dose NSAIDs if needed - careful monitoring of renal function
- pretreatment with tylenol and PRN for rigors/fevers
- daily pretreatment with 500 ccs NS bolus in addition to maintenance fluids; dose was increased today by IM service given progression of Cr level
- hydration with normal saline, follow Na closely
Persistent fevers
Possible developing aspiration pneumonia, from pneumonitis
- pneumonitis may explain persistent fevers
- blood cultures x2, ua unrevealing
- sputum culture is pending
- add ceftriaxone
Acute Stroke
- appreciate neurology input
- cryptococcus is associated with stroke occasionally, no modifiable risk factors from ID perspective
- follow closely
Chief Complaint
-: Fever and Other (Fungal Meningitis)
Subjective / Review of Systems
fever curve appears to be improved since starting ceftriaxone
intermittent lethargy - no missed doses of flucytosine
Vital Signs / Physical Exam
Vital Signs
Vital Signs
Temp Pulse Resp BP Pulse Ox
100.5 F H 94 18 148/88 92
02/24/24 07:15 02/24/24 09:14 02/24/24 09:14 02/24/24 09:14 02/24/24 09:14
Physical Exam
Constitutional: No Acute Distress and Chronically Ill
Cardiovascular: Regular Rate and S1/S2; Negative Murmur or Rub
Pulmonary: Clear and Symmetric; Negative Wheezes or Rales
Gastrointestinal: Soft, Non Tender, Non Distended and Normal Bowel Sounds
Skin: Warm and Dry; Negative Rash or Jaundice
Objective Data
Lab Data
Lab Results
02/24/24 05:21
PT 19.5 Sec (11.4-14.6) H 02/17/24 10:13
INR 1.67 02/17/24 10:13
APTT 25.1 Sec (23.4-35.0) 02/17/24 10:13
Estimated Creat Clear 38 ml/min 02/24/24 05:21
Lactic Acid Cancelled 02/17/24 14:15
Total Bilirubin 1.3 mg/dl (0.2-1.3) 02/18/24 09:06
AST 26 U/L (17-59) 02/18/24 09:06
ALT 27 U/L (0-50) 02/18/24 09:06
Alkaline Phosphatase 78 U/L (38-126) 02/18/24 09:06
Most recent labs reviewed.
Micro Results:
02/22/24 21:02 Blood Culture - Preliminary
Blood/Venous No Growth in 24 hours- Final report to follow
02/22/24 19:56 Blood Culture - Preliminary
Blood/Venous No Growth in 24 hours- Final report to follow
02/17/24 10:13 Blood Culture - Final
Blood/Venous No Growth - Final Report
02/17/24 15:27 CSF Culture - Final
Csf No Growth After 5 Days - Final Report
Gram Stain - Final
02/17/24 10:13 Blood Culture - Final
Blood/Venous No Growth - Final Report
02/19/24 14:20 Fungal Culture - Preliminary
Csf Culture in progress.
Positive cultures are reported as soon as detected.
Final report to follow in four to five weeks.
02/17/24 15:27 Meningitis/Encephalitis Panel (PCR) - Final
Csf
02/17/24 15:27 Fungal Culture - Preliminary
Csf Culture in progress.
Positive cultures are reported as soon as detected.
Final report to follow in four to five weeks.
02/17/24 10:13 Influenza Types A & B (LEO) - Final
Nasal Swab Negative for Influenza A & B, NAAT
Negative results must be combined with clinical observations
and patient history.
Nucleic Acid Amplification test (NAAT)performed on the
[employer] platform.
Care Review
Plan reviewed with: Physician (Dr Danyel qureshi)
[2024-02-24] MEDS: ROCEPHIN 1000 MG IV (12:41)
[2024-02-24] MEDS: STERILE WATER FOR INJECTION 10 ML IV (12:56)
[2024-02-24] MEDS: TYLENOL 650 MG PO (13:47)
--- NOTE | 2024-02-24 14:20 | PTCARENOTE ---
Patient grimacing and appears diaphoretic and flushed, oral temp 101.6 -p.o. tylenol given.
[2024-02-24 16:49] LABS: Blood Urea Nitrogen 45 mg/dl (9-20); Calcium 9.6 mg/dl (8.4-10.2); Carbon Dioxide 26 mmol/L (22-30); Chloride 106 mmol/L (98-107); Estimated Creatinine Clearance 35 ml/min; Glucose 122 mg/dl (70-99); Potassium 3.6 mmol/L (3.5-5.1); Sodium 141 mmol/L (135-145); eGFR 46.77
--- NOTE | 2024-02-24 17:16 | PTCARENOTE ---
Assumed care of pt this am after morning rounds. He is more awake at intervals today, giving one to a few word answers. He will open eyes to request but generally does not follow directions -such as lift arm or do tasks. Pt encouraged to feed self
but takes not action to use spoon or cup appropriately. Heart rate NSR with murmur. BP addressed with MD and resident team during their morning rounds. Pt is chewing meds and this was reported to team as well. Lungs clear at this time pulse ox 99%
on room air. Occasional cough noted. Temp max 101.6 today. Given p.o. Tylenol and temp now 99.6. Pt making more facial expressions such as smiling and raising eyebrows during conversation by staff. supportive at bedside and assisting with
feeds. Reminded to assure pt is HOB elevated and aspiration precautions. No change in Neuro assessments today
[2024-02-24] MEDS: TYLENOL 1000 MG PO (17:29)
[2024-02-24] MEDS: NSS 500 IV (17:30)
[2024-02-24] MEDS: D5W 50 IV ×2 (18:28→20:56)
[2024-02-24] MEDS: AMBISOME 212.5 MG IV (18:29)
[2024-02-24] MEDS: SENOKOT 17.2 MG PO (21:08)
[2024-02-25] VITALS (23 sets, daily range): BP systolic 110–180; BP diastolic 50–98; PULSE 90–95; O2SAT 97–98; BMI 19.2
[2024-02-25] MEDS: [UNRECOGNIZED DRUG - OTHER] 1500 MG PO ×5 (01:15→23:31)
--- NOTE | 2024-02-25 01:41 | PTCARENOTE ---
Pt received from previous RN. NIH assessment done qshift. NIH remains unchanged. Pt arousable to verbal stimuli at times and tactile at others. Pt frequently does not follow commands. Does open mouth when spoon held up to it with apple sauce and
pills. Pt stating a few words such as ouch and no. Pt chewing pills, Pills that are allowed to be crushed were done so by this RN. Pt NSR on monitor with PVC's. Pt with CC# 21, emptied for 1600 ml thus far during this shift. RUE and LUE restriction
maintained. BP cuff on left calf. Aspiration precautions in place.
[2024-02-25] MEDS: APRESOLINE 10 MG IV (02:59)
[2024-02-25] MEDS: NSS 1000 IV ×3 (04:15→21:15)
[2024-02-25] MEDS: TYLENOL 650 MG PO (04:16)
--- NOTE | 2024-02-25 04:26 | PTCARENOTE ---
Pt with temp of 100.9 oral. pt given ordered prn Tylenol.
[2024-02-25 05:18] LABS: % Basophils 0.8 % (0-2); % Eosinophils 1.9 % (0-6); % Immature Granulocytes 0.5 % (0-0.5); % Lymphocytes 7.2 % (20.5-51.1); % Monocytes 4.3 % (1.7-9.3); % Neutrophils 85.3 % (42.2-75.2); Absolute Basophils 0.1 10^3/uL (0-0.2); Absolute Eosinophils 0.2 10^3/uL (0-0.7); Absolute Immature Granulocytes 0.1 10^3/uL (0-0.05); Absolute Lymphocytes 0.7 10^3/uL (1.2-3.4); Absolute Monocytes 0.4 10^3/uL (0.1-0.6); Absolute Neutrophils 8.5 10^3/uL (1.4-6.5); Hematocrit 32.7 % (39.0-52.0); Hemoglobin 11.6 g/dL (13.0-18.0); Mean Corp Hgb Conc. 35.5 g/dL (33.0-37.0); Mean Corpuscular Hgb 32.5 pg (27.0-31.0); Mean Corpuscular Volume 91.6 fL (80.0-94.0); Mean Platelet Volume 9.2 fL (7.4-10.4); Nucleated Red Blood Cells % 0 % (-); Platelet Count 270 10^3/uL (130-400); Red Blood Cell Count 3.57 10^6/uL (4.70-6.10); Red Cell Dist. Width 12.4 % (11.5-14.5); White Blood Cell Count 9.9 10^3/uL (4.8-10.8)
[2024-02-25 05:31] LABS: Blood Urea Nitrogen 34 mg/dl (9-20); Calcium 9.8 mg/dl (8.4-10.2); Carbon Dioxide 24 mmol/L (22-30); Chloride 108 mmol/L (98-107); Estimated Creatinine Clearance 52 ml/min; Glucose 121 mg/dl (70-99); Magnesium 1.7 mg/dl (1.6-2.3); Potassium 3.1 mmol/L (3.5-5.1); Sodium 144 mmol/L (135-145); eGFR > 60.00
[2024-02-25] MEDS: KCL 40 MEQ PO (06:28)
--- NOTE | 2024-02-25 07:51 | W.PN.HOSP.TC ---
Addendum entered and electronically signed by Jewel Montaño MD 02/25/24 16:23:
I saw and evaluated the patient. I reviewed the resident�s note and agree with findings and plan as documented in the resident�s note.
Patient mentation bit better, awake and communicative spells. Speech evaluated and diet adjusted to IDDSI 4, VSE ordered
Patient remains hypertensive, chewing extended release Procardia, will change to Coreg and increase dose as needed. Continue on as needed hydralazine for systolic blood pressure above 160.
Patient not taking oral potassium pills, changed to liquid. Will increase the dose from 80 mEq to more if potassium again low in the morning tomorrow
Follow-up flucytosine level, which has been sent out. Continue amphotericin B.
Continue to have temperature episodes overnight maintain on Rocephin per ID recommendation.
Patient renal function has normalized, maintain on NS at rate of 100/mL/hr
Original Note:
Today's Communication/Plan
-
Transition to pureed diet
Video fluoro swallow study
Continue antifungal therapy
Initiated Coreg
Assessment / Plan
Assessment / Plan
IMPRESSION: This is a 78 year old male patient [facility] of [facility] mental status and fever. He was very recently admitted to from 01/17 to 02/12 for Cryptococcal meningitis and CVA (acute ischemic stroke in the
Left cerebral peduncle).
Assessment:
Fever
Altered mental status
Occlusive thrombus in subclavian, axillary and proximal basilic vein
Hx of cryptococcal meningitis
CVA (acute ischemic stroke in the left cerebral peduncle)
Hyperlipidemia
PLAN:
#Relapsed cryptococcal encephalitis/meningitis
-Repeat LP with opening pressure of 9 mmHg.
-ID involved in care and patient has been resumed back on IV amphotericin B/oral flucytosine
-Monitor for nephrotoxicity, cr 1.0 today
-Continue IVF
-Repeat therapeutic LP if any signs of increased ICP develops
-continue monitoring electrolytes K/mg/ca
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
-Patient had new right upper extreme weakness and right eye lateral gaze palsy
-MRI brain on 02/18 without contrast showing small midbrain stroke
-ST cleared for dysphagia diet.
-neurology evaluated and suspecting-cryptococcus meningitis related vasculopathy
-GIL recommended as well although patient unstable for this. TTE did not show any new findings.
-EEG abnormal but no seizure activity
- Continue Eliquis
- Diet changed to pur�ed with thin liquids
- Ordered video fluoro swallow study
#Febrile State-possible aspiration pneumonia
-Likely controlled meningitis although ID monitoring for possible aspiration pneumonitis
-Sputum culture pending
-Continue IV Rocephin as per ID
#Essential Hypertension
-Elevated Bp readings: SBP 150s/160s
-Initiated Coreg 12.5mg BID, monitor
#Acute TME
-Suspected from stroke related? vs cryptococcal infection related
-Avoid sedative medication
-Continue supportive care
-Patient declining on/off oral meds, will need NGT if cant take oral meds.
#Right UE DVT
- involving rt subclavian,axillary and proximal basillar vein on 02/09
- maintain on Eliquis therapy
#Hypokalemia
-patient continue to be hypokalemic despite 60meq K
-K 3.1 today, monitor
-Transitioned to potassium elixir
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
-resolved
#Hyperlipidemia
-Continue atorastatin
#Thyroid nodule
-followed by endocrine but apparently discharged by them--biopsy in 2022 was negative--TSH WNL
DVT prophylaxis
Code status --Full code
Anticipated Discharge: 24 - 48 hours
Subjective/Interval History
-
Date of Service: February 25, 2024
Patient continues to have waxing and waning of orientation. Febrile
Objective Data
-
Labs:
Laboratory Results
02/25/24
05:02
WBC 9.9
Hgb 11.6 L
Hct 32.7 L
Plt Count 270
Sodium 144
Potassium 3.1 L
Chloride 108 H
Carbon Dioxide 24
BUN 34 H
Creatinine 1.0
Glucose 121 H
Calcium 9.8
Vital Signs:
Vital Signs
Temp Pulse Resp BP Pulse Ox
98.2 F 103 18 138/69 94
02/25/24 07:33 02/25/24 04:37 02/25/24 04:37 02/25/24 04:37 02/25/24 04:37
I&O
02/24/24 02/25/24 02/26/24
06:59 06:59 06:59
Intake Total 410 / 410 2602 / 2602
Output Total 2800 / 2800 3500 / 3500
Balance -2390 / -2390 -898 / -898
Review of Systems
-
All other systems: Reviewed and negative
Physical Exam
-
General: No Apparent Distress, Fever and Other
HEENT: Normocephalic
Respiratory: Clear to Auscultation
Cardiac: Regular Rhythm and S1/S2
GI: Soft, Nontender and Nondistended
Musculoskeletal: No Cyanosis and No Edema
Skin: Warm and Dry
Neuro: Awake, Alert and Other (Waxing and waning)
Psych: Calm
[2024-02-25] MEDS: PROTONIX 20 MG PO (09:01)
[2024-02-25] MEDS: SODIUM CHLORIDE 1 GRAM PO (09:01)
[2024-02-25] MEDS: PROCARDIA XL (EXTENDED RELEASE) 30 MG PO (09:01)
[2024-02-25] MEDS: COLACE 100 MG PO ×2 (09:02→21:09)
[2024-02-25] MEDS: THERAGRAN 1 TABLET PO (09:02)
[2024-02-25] MEDS: LOW STRENGTH ASPIRIN 81 MG PO (09:02)
[2024-02-25] MEDS: MAGNESIUM OXIDE 500 MG PO ×2 (09:02→21:08)
[2024-02-25] MEDS: LIPITOR 20 MG PO ×2 (09:02→09:03)
[2024-02-25] MEDS: ELIQUIS 5 MG PO ×2 (09:02→21:09)
--- NOTE | 2024-02-25 10:10 | CM ---
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 Receiving IV Amphotericin B, flucytosine PO, IV ceftriaxone,
IVF. ST for dysphagia. PT/OT 02/23; not following commands, recommend acute rehab.
Spoke with Janay Glez, [facility]; discussed patient's current status. They are unlikely to accept him back if he needs > 2 weeks IV antifungals, as Medicare will not pay for care home IV antifungals at [place], and patient would likely be
discharged to home after 2 weeks in [place]. Janay suggests considering SNF/subacute referrals.
CM continuing to follow.
Plan watch for IV antifungal/IV Abx needs at discharge.
Plan follow ST dysphagia therapy/oral intake.
Plan follow patient's mentation and ability to participate with PT/OT.
Plan possibly contact [facility] when less medically acute re; possible return to [facility], vs SNF/subacute.
Plan TBD.
[2024-02-25] MEDS: KCL ELIXIR 40 MEQ PO ×3 (10:19→21:09)
--- NOTE | 2024-02-25 10:35 | PTOTSP ---
Dysphagia Therapy
Signs concerning for aspiration noted with soft solids this date. Diet downgrade recommended to pureed solids as well as video swallow study to objectively assess pharyngeal swallow given risk factors (multiple strokes, meningitis with
AMS/lethargy). verbalized agreement. Discontinue oral diet and consider temporary non-oral means if s/s aspiration persist despite plan/diet below.
Recommend:
1. IDDSI Level 4 Puree, Thin Liquids
2. Medications - crushed in puree if medically cleared
3. Strategies: upright to 90 degrees, PO only when awake/alert, 1:1 supervision/assistance, small single sips/bites, slow rate, cue to swallow and watch or/feel for charu's apple to move before giving next sip/bite, check for oral clearance/pocketing
on right
4. Oral care 3x daily
5. Video swallow study
--- NOTE | 2024-02-25 11:58 | W.PN.ID1 ---
Addendum entered and electronically signed by Naa John MD 02/25/24 15:57:
I saw and evaluated the patient. I reviewed the resident�s note and agree with findings and plan as documented in the resident�s note with the following additions/corrections:
Delirium and fevers waxing and waning.
Given that CSF fungal culture of adequate amount has not yet grown yeast and confusion/fevers ongoing, my concern for IRIS is increasing
- start dexamethasone 6 mg - follow clinically
- continue ampho and flucytosine
- awaiting flucytosine levels
- follow clinically
Original Note:
Date of Service
Date of Service: February 25, 2024
Today's Communication
Start patient on dexamethasone. Continue Amphotericin, flucytosine, IV maintenance fluids, potassium and magnesium repletion, Rocephin.
Assessment / Plan
Assessment -
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
Persistent fevers
AMS - intermittent
CSF cultures-day 7 still continues to remain negative.
Plan -
Relapsed Cryptococaal meningitis -
lipo ampho B at 4 mg/kg daily
-Continue daily pretreatment with 500 cc NS bolus, continue IV maintenance fluids. Serum creatinine improved today.
-Monitor with daily BMP and magnesium levels, aggressive potassium and magnesium replacement as needed-appreciate internal medicine service.
-Continue pretreatment with Tylenol for rigors and as needed for rigors.
flucytosine 1500 mg po QID
-Clinical pharmacy assisted with obtaining flucytosine levels which were sent out yesterday, will follow-up with results-appreciate clinical pharmacy service.
plan at least 4 weeks of re-induction and possibly longer pending repeat LP at the end of 4 weeks - therapy was restarted 02/16
a 2019 review of the literature reported 8 cases of cryptococcal endocarditis associated with cryptococcal meningitis in 40 years; almost all patients had hardwear in the heart or were known to be immunocompromised - happily Mr Juárez has neither.
The duration of treatment for cryptococcal meningitis is at least a year. 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 ( copied from Dr. John notes, and after discussing her rationale)
Also in the setting of persistent fevers could not rule out the possibility of PIIRS. Hence patient is added on dexamethasone IV 6 mg once a day.
Persistent fevers-
Blood cultures x 2 negative, urine analysis unrevealing.
Evidence of pneumonitis on chest x-ray, concern for aspiration pneumonia in the setting of persistent fevers. Could also be secondary to PIIRS.
sputum cultures are pending. Patient is currently on Rocephin-day 3.
Acute Stroke
appreciate neurology input
cryptococcus is associated with stroke occasionally, no modifiable risk factors from ID perspective
follow closely
Chief Complaint
-: Fever and Other (Fungal Meningitis)
Subjective / Review of Systems
Review of Systems: No Fever, No Chills, No Headache, No Stiff Neck, No Cough, No Sputum Production, No Chest Pain, No Palpitations, No Nausea, No Diarrhea, No Dysuria and No Skin Rash
Vital Signs / Physical Exam
Vital Signs
Vital Signs
Temp Pulse Resp BP Pulse Ox
98.2 F 95 16 159/77 98
02/25/24 11:34 02/25/24 10:48 02/25/24 10:48 02/25/24 10:48 02/25/24 10:48
Physical Exam
Constitutional: Comfortable
Eyes: Other (Disconjugate gaze, anisocoria.)
Cardiovascular: Regular Rate and S1/S2; Negative Murmur, Rub or Gallop
Pulmonary: Clear; Negative Wheezes, Rales or Rhonchi
Gastrointestinal: Soft, Non Tender, Non Distended and Normal Bowel Sounds
Extremities: Erythema; Negative Edema
Skin: Warm
Neurological: Awake, Alert, Oriented and Other (strength in left arm -4/5)
Psychological: Calm
Objective Data
Lab Data
Lab Results
02/25/24 05:02
02/25/24 05:02
PT 19.5 Sec (11.4-14.6) H 02/17/24 10:13
INR 1.67 02/17/24 10:13
APTT 25.1 Sec (23.4-35.0) 02/17/24 10:13
Estimated Creat Clear 52 ml/min 02/25/24 05:02
Lactic Acid Cancelled 02/17/24 14:15
Total Bilirubin 1.3 mg/dl (0.2-1.3) 02/18/24 09:06
AST 26 U/L (17-59) 02/18/24 09:06
ALT 27 U/L (0-50) 02/18/24 09:06
Alkaline Phosphatase 78 U/L (38-126) 02/18/24 09:06
Most recent labs reviewed.
CT Scan: Image Reviewed and Report Reviewed
MRI: Image Reviewed and Report Reviewed
Micro Results:
02/22/24 21:02 Blood Culture - Preliminary
Blood/Venous No Growth in 48 hours- Final report to follow
02/22/24 19:56 Blood Culture - Preliminary
Blood/Venous No Growth in 48 hours- Final report to follow
02/17/24 15:27 Fungal Culture - Preliminary
Csf Culture in progress.
Positive cultures are reported as soon as detected.
Final report to follow in four to five weeks.
02/19/24 14:20 Fungal Culture - Preliminary
Csf Culture in progress.
Positive cultures are reported as soon as detected.
Final report to follow in four to five weeks.
02/17/24 10:13 Blood Culture - Final
Blood/Venous No Growth - Final Report
02/17/24 15:27 CSF Culture - Final
Csf No Growth After 5 Days - Final Report
Gram Stain - Final
02/17/24 10:13 Blood Culture - Final
Blood/Venous No Growth - Final Report
02/17/24 15:27 Meningitis/Encephalitis Panel (PCR) - Final
Csf
02/17/24 10:13 Influenza Types A & B (LEO) - Final
Nasal Swab Negative for Influenza A & B, NAAT
Negative results must be combined with clinical observations
and patient history.
Nucleic Acid Amplification test (NAAT)performed on the
[employer] platform.
[2024-02-25] MEDS: ROCEPHIN 1000 MG IV (12:11)
[2024-02-25] MEDS: STERILE WATER FOR INJECTION 10 ML IV (12:11)
[2024-02-25] MEDS: DECADRON 6 MG IV (14:31)
[2024-02-25] MEDS: TYLENOL 1000 MG PO (17:10)
[2024-02-25] MEDS: NSS 500 IV (17:11)
[2024-02-25] MEDS: D5W 50 IV ×2 (18:07→21:15)
[2024-02-25] MEDS: AMBISOME 212.5 MG IV (18:07)
--- NOTE | 2024-02-25 19:20 | PTCARENOTE ---
Pt awake much of the day, following some basic commands, able to take pills crushed in puree with encouragement. spoke in a few clear sentencesPt became more lethargic and sleepy as day progressed but remains arousable. vital signs stable.
[2024-02-25] MEDS: SENOKOT 17.2 MG PO (21:08)
[2024-02-25] MEDS: COREG 12.5 MG PO (21:08)
[2024-02-26] VITALS (21 sets, daily range): BP systolic 118–193; BP diastolic 65–104; PULSE 59–77; O2SAT 95–97
[2024-02-26] MEDS: APRESOLINE 10 MG IV ×2 (00:10→04:09)
[2024-02-26 03:57] LABS: % Basophils 0.3 % (0-2); % Eosinophils 0.1 % (0-6); % Immature Granulocytes 0.5 % (0-0.5); % Lymphocytes 6.7 % (20.5-51.1); % Monocytes 5.1 % (1.7-9.3); % Neutrophils 87.3 % (42.2-75.2); Absolute Immature Granulocytes 0.1 10^3/uL (0-0.05); Absolute Lymphocytes 0.6 10^3/uL (1.2-3.4); Absolute Monocytes 0.5 10^3/uL (0.1-0.6); Hematocrit 31.6 % (39.0-52.0); Hemoglobin 11.3 g/dL (13.0-18.0); Mean Corp Hgb Conc. 35.8 g/dL (33.0-37.0); Mean Corpuscular Hgb 33.9 pg (27.0-31.0); Mean Corpuscular Volume 94.9 fL (80.0-94.0); Mean Platelet Volume 9.2 fL (7.4-10.4); Nucleated Red Blood Cells % 0 % (-); Platelet Count 216 10^3/uL (130-400); Red Blood Cell Count 3.33 10^6/uL (4.70-6.10); Red Cell Dist. Width 12.4 % (11.5-14.5); White Blood Cell Count 9.2 10^3/uL (4.8-10.8)
[2024-02-26 04:21] LABS: Blood Urea Nitrogen 36 mg/dl (9-20); Calcium 9.9 mg/dl (8.4-10.2); Carbon Dioxide 23 mmol/L (22-30); Chloride 110 mmol/L (98-107); Estimated Creatinine Clearance 58 ml/min; Glucose 114 mg/dl (70-99); Magnesium 1.7 mg/dl (1.6-2.3); Potassium 3.6 mmol/L (3.5-5.1); Sodium 143 mmol/L (135-145); eGFR > 60.00
[2024-02-26] MEDS: NSS 1000 IV ×3 (04:48→23:34)
[2024-02-26] MEDS: [UNRECOGNIZED DRUG - OTHER] 1500 MG PO ×4 (05:18→23:34)
--- NOTE | 2024-02-26 05:39 | PTCARENOTE ---
Patient difficult to arouse at times. Woke up several times throughout the night and spoke a few words. Unable to follow commands. NIH of 17. manager sharepoint provider made aware about the increase in score. Afebrile.
[2024-02-26] MEDS: SODIUM CHLORIDE 1 GRAM PO (07:23)
[2024-02-26] MEDS: COLACE PO (07:23)
[2024-02-26] MEDS: ELIQUIS 5 MG PO (07:23)
--- NOTE | 2024-02-26 07:23 | W.PN.HOSP.TC ---
Addendum entered and electronically signed by Jewel Montaño MD 02/26/24 15:32:
I saw and evaluated the patient. I reviewed the resident�s note and agree with findings and plan as documented in the resident�s note.
Patient remains encephalopathic, and failed VSE study today
Speech therapy has recommended patient to be n.p.o. for time being
GI consulted and a Dobbhoff tube has been placed, tube feed initiated
Patient medication changed to be provided through tube
Discussed with ID and will change flucytosine to liquid form if patient swallowing does not improve
Patient continues to have fever, Rocephin to be continued per ID recommendation
ID suspecting postinfectious immune reconstitution syndrome, in light of persisting encephalopathy despite improving microbiological marker
Patient started on IV dexamethasone 6mg BID
Patient blood pressure remained uncontrolled, Norvasc 10 mg ordered on Coreg 12.5 g twice daily
Continue monitoring BP and will further adjust dose as needed
Patient reported to have episode of NSVT, recheck of potassium/mag/phosphorus ordered
Repeat EKG check ordered as well to monitor QTc
Continue tele monitoring
Renal function remains stable, maintain on NS
Total time spent : 55 mins
Original Note:
Today's Communication/Plan
-
Continue antifungal therapy
Dobbhoff tube placement today
Started Norvasc
Assessment / Plan
Assessment / Plan
IMPRESSION: This is a 78 year old male patient [facility] with concerns of altered mental status and fever. He was very recently admitted to from 01/17 to 02/12 for Cryptococcal meningitis and CVA (acute ischemic stroke in the
Left cerebral peduncle).
Assessment:
Fever
Altered mental status
Occlusive thrombus in subclavian, axillary and proximal basilic vein
Hx of cryptococcal meningitis
CVA (acute ischemic stroke in the left cerebral peduncle)
Hyperlipidemia
PLAN:
#Relapsed cryptococcal encephalitis/meningitis
-Repeat LP with opening pressure of 9 mmHg.
-ID involved in care and patient has been resumed back on IV amphotericin B/oral flucytosine
-Monitor for nephrotoxicity, cr 0.9 today
-Continue IVF
-Repeat therapeutic LP if any signs of increased ICP develops
-continue monitoring electrolytes K/mg/ca
-Continue IV dexamethasone as per ID
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
-Patient had new right upper extreme weakness and right eye lateral gaze palsy
-MRI brain on 02/18 without contrast showing small midbrain stroke
-ST cleared for dysphagia diet.
-neurology evaluated and suspecting-cryptococcus meningitis related vasculopathy
-GIL recommended as well although patient unstable for this. TTE did not show any new findings.
-EEG abnormal but no seizure activity
- Continue Eliquis
- Failure of video fluoro swallow study- placement of Dobbhoff tube
#Febrile State-likely aspiration pneumonia
-Sputum culture pending
-Continue IV Rocephin as per ID
#Essential Hypertension
-Elevated Bp readings: SBP 150s/160s
-Continue Coreg 12.5mg BID, monitor
-Started Norvasc
-Continue hydralazine prn
#Acute TME
-Suspected from stroke related? vs cryptococcal infection related
-Avoid sedative medication
-Continue supportive care
-Dobbhoff tube placement today
#Right UE DVT
- involving rt subclavian,axillary and proximal basillar vein on 02/09
- maintain on Eliquis therapy
#Hypokalemia
-patient continue to be hypokalemic despite 60meq K
-K 3.6 today, monitor
-Continue potassium elixir
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
-resolved
#Hyperlipidemia
-Continue atorastatin
#Thyroid nodule
-followed by endocrine but apparently discharged by them--biopsy in 2022 was negative--TSH WNL
DVT prophylaxis
Code status --Full code
Anticipated Discharge: > 48 hours
Subjective/Interval History
-
Date of Service: February 26, 2024
Patient is awake but not oriented and is unable to properly answer questions when asked.
Objective Data
-
Labs:
Laboratory Results
02/26/24
03:42
WBC 9.2
Hgb 11.3 L
Hct 31.6 L
Plt Count 216
Sodium 143
Potassium 3.6
Chloride 110 H
Carbon Dioxide 23
BUN 36 H
Creatinine 0.9
Glucose 114 H
Calcium 9.9
Vital Signs:
Vital Signs
Temp Pulse Resp BP Pulse Ox
97.9 F 88 18 169/83 98
02/26/24 03:25 02/26/24 06:00 02/26/24 06:00 02/26/24 06:00 02/26/24 06:00
I&O
02/25/24 02/26/24 02/27/24
06:59 06:59 06:59
Intake Total 3852 / 3852 1200 / 1200
Output Total 3500 / 3500 2850 / 2850
Balance 352 / 352 -1650 / -1650
Review of Systems
-
All other systems: Reviewed and negative
Physical Exam
-
General: No Apparent Distress
HEENT: Normocephalic
Respiratory: Clear to Auscultation
Cardiac: Regular Rhythm and S1/S2
GI: Soft, Nontender and Nondistended
Musculoskeletal: No Cyanosis and No Edema
Skin: Warm and Dry
Neuro: Awake and Alert; Negative Oriented
[2024-02-26] MEDS: MAGNESIUM OXIDE 500 MG PO ×2 (07:24→19:39)
[2024-02-26] MEDS: PROTONIX 20 MG PO (07:24)
[2024-02-26] MEDS: THERAGRAN 1 TABLET PO (07:24)
[2024-02-26] MEDS: DECADRON 6 MG IV ×2 (07:24→15:12)
[2024-02-26] MEDS: COREG 12.5 MG PO (07:24)
[2024-02-26] MEDS: LOW STRENGTH ASPIRIN 81 MG PO (07:24)
--- NOTE | 2024-02-26 08:49 | PTCARENOTE ---
Assumed care of patient this morning. He wakes to voice and when his name is called. Pt followed commands to smile, raise eyebrows, squeeze hands and to keep limbs up when lifted by RN. Pt would not lift his legs up himself. He has good strength. Pt
did not speak this morning when asked his name or yes/not questions. NIH 10, see flowsheet. Pt took medications in applesauce and drank from straw this morning without difficulty. Pt just sent for Video swallow. Assessment, care and VS as
charted.
--- NOTE | 2024-02-26 10:43 | PTOTSP ---
Video Swallow Study
Summary: Patient presents with mild-moderate oral and moderate pharyngeal dysphagia with deep penetration of thin liquids and aspiration of moderately thick liquids. See patient care note for details.
Patient is at a high risk for aspiration given periods of lethargy and AMS impacting ability to consistently follow safe swallowing strategies. Given these factors in combination with concerns for aspiration pneumonitis/PNA, consider NPO and
temporary non-oral means.
Recommendations:
1. NPO - consider temporary non-oral means
2. Medications via non-oral means
3. Aspiration Risk Hydration Protocol - small single supervised sips of thin water - only if awake/alert, after oral care, without food/medications
4. Oral care 3x daily
5. Dysphagia therapy at the acute care level for education and to determine if/when appropriate to resume an oral diet. Dysphagia tx warranted after D/C from acute care at this time.
No family present at time of bedside follow up after video swallow study. Will follow up for education as able/appropriate.
--- NOTE | 2024-02-26 11:12 | W.PN.UPDATE ---
Addendum entered and electronically signed by MEGAN Underwood 02/26/24 16:26:
some difficulty with flushing after I Left tube pulled back slightly to 64 cm and retapped and now working without difficulty. confirmed with insufflation. updated at bedside
Addendum entered and electronically signed by MEGAN Underwood 02/26/24 14:55:
abd X ray with Weighted tip feeding tube courses below the diaphragm with tip projecting over the stomach.
tube in adequate position ok to use.
Addendum entered and electronically signed by MEGAN Underwood 02/26/24 12:02:
second attempt able to place at 70cm right nare. Will check X ray to confirm placement prior to use.
Original Note:
Update Note
Progress Note Update
attempted to place DHT tube with increased cough and resistance with ability to move neck and unable to place.
[2024-02-26] MEDS: ROCEPHIN 1000 MG IV (11:31)
[2024-02-26] MEDS: STERILE WATER FOR INJECTION 10 ML IV (11:31)
--- NOTE | 2024-02-26 13:41 | W.PN.ID1 ---
Addendum entered and electronically signed by Naa John MD 02/26/24 17:23:
I saw and evaluated the patient. I reviewed the resident�s note and agree with findings and plan as documented in the resident�s note with the following additions/corrections:
SOAP
S:
Waxing and waning mental status, Im cautiously optimistic he may be trending towards improvement
afebrile since high dose steroids started
bp stable
O:
VSS - afebrile
Physical Exam
Constitutional: No Acute Distress and Chronically Ill
Cardiovascular: Regular Rate and S1/S2; Negative Murmur or Rub
Pulmonary: Clear and Symmetric; Negative Wheezes or Rales
Gastrointestinal: Soft, Non Tender, Non Distended and Normal Bowel Sounds
Skin: Warm and Dry; Negative Rash or Jaundice
Labs reviewed
A&P
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
Cryptococcal Meningitis
Fever - possibly resolved
AMS - intermittent
- started high dose dexamethasone 02/24 for possible PIIRS - follow clinically, continue to follow fungal cultures
- lipo ampho B at 4 mg/kg daily
- flucytosine 1500 mg po QID
- trough 49.7 goal is >25; awaiting peak
- duration pending course
- daily cbc, bmp, mag levels
- aggressive K/mag replacement - appreciate IM service
- avoid nephrotoxic agents as feasible - ok for low dose NSAIDs if needed - careful monitoring of renal function
- pretreatment with tylenol and PRN for rigors/fevers
- PICC in place for ampho
- daily pretreatment with 500 ccs NS bolus in addition to maintenance fluids; dose was increased today by IM service given progression of Cr level
- hydration with normal saline, follow Na closely
Possible developing aspiration pneumonia vs pneumonitis
Aspiration
- if unable to place NGT today, would try again in a day or two as mental status may improve with steroids
- exception for npo for flucytosine
- hasnt produced a sputum
- currently plan 5 days of CTX then stop
- procalcitonin
Acute Stroke
- appreciate neurology input
- cryptococcus is associated with stroke occasionally, no modifiable risk factors from ID perspective
- follow closely
AW
Original Note:
Date of Service
Date of Service: February 26, 2024
Today's Communication
Continue Rocephin.
Continue Amphotericin B. Switch flucytosine through tubes.
Continue dexamethasone.
Monitor BMP, CBC, magnesium levels.
Assessment / Plan
Assessment -
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
Persistent fevers
AMS - intermittent
CSF cultures-day 7 still continues to remain negative.
Plan -
Relapsed Cryptococaal meningitis -
lipo ampho B at 4 mg/kg daily
-Continue daily pretreatment with 500 cc NS bolus, continue IV maintenance fluids. Serum creatinine improved today.
-Monitor with daily BMP and magnesium levels, aggressive potassium and magnesium replacement as needed-appreciate internal medicine service.
-Continue pretreatment with Tylenol for rigors and as needed for rigors.
flucytosine 1500 mg po QID, switched to tubes.
-Clinical pharmacy assisted with obtaining flucytosine levels which were sent out yesterday, will follow-up with results-appreciate clinical pharmacy service.
plan at least 4 weeks of re-induction and possibly longer pending repeat LP at the end of 4 weeks - therapy was restarted 02/16
a 2019 review of the literature reported 8 cases of cryptococcal endocarditis associated with cryptococcal meningitis in 40 years; almost all patients had hardwear in the heart or were known to be immunocompromised - happily Mr Juárez has neither.
The duration of treatment for cryptococcal meningitis is at least a year. GIL unlikely to loom changer. ( copied from Dr. John notes, and after discussing her rationale)
Also in the setting of persistent fevers could not rule out the possibility of PIIRS. Hence patient is added on dexamethasone IV 6 mg once a day.
Persistent fevers-
Blood cultures x 2 negative, urine analysis unrevealing.
Evidence of pneumonitis on chest x-ray, concern for aspiration pneumonia in the setting of persistent fevers. Could also be secondary to PIIRS.
sputum cultures are pending. Patient is currently on Rocephin-day 4.
Acute Stroke
appreciate neurology input
cryptococcus is associated with stroke occasionally, no modifiable risk factors from ID perspective
follow closely
Chief Complaint
-: Fever and Other (Fungal Meningitis)
Subjective / Review of Systems
Overnight, patient failed swallow evaluation with video fluoroscopic study. Patient received a Dobbhoff in the afternoon today. He is still having waxing and waning episodes of orientation.
Tube feeds initiated. Patient did not have any objective fevers.
Review of Systems: No Fever, No Chills, No Headache, Stiff Neck, Cough, No Sputum Production, No Chest Pain, No Palpitations, No Abdominal Pain and No Nausea
Vital Signs / Physical Exam
Vital Signs
Vital Signs
Temp Pulse Resp BP Pulse Ox
97.6 F 60 15 132/68 96
02/26/24 11:17 02/26/24 13:06 02/26/24 13:06 02/26/24 13:06 02/26/24 13:06
Physical Exam
Constitutional: Comfortable
Eyes: Other (Disconjugate gaze, anisocoric pupils.)
Cardiovascular: Regular Rate and S1/S2; Negative Murmur, Rub or Gallop
Pulmonary: Clear; Negative Wheezes, Rales or Rhonchi
Gastrointestinal: Soft, Non Tender, Non Distended and Normal Bowel Sounds
Extremities: Negative Edema or Cyanosis
Neurological: Awake and Alert; Negative Oriented
Psychological: Calm
Objective Data
Lab Data
Lab Results
02/26/24 03:42
02/26/24 03:42
PT 19.5 Sec (11.4-14.6) H 02/17/24 10:13
INR 1.67 02/17/24 10:13
APTT 25.1 Sec (23.4-35.0) 02/17/24 10:13
Estimated Creat Clear 58 ml/min 02/26/24 03:42
Lactic Acid Cancelled 02/17/24 14:15
Total Bilirubin 1.3 mg/dl (0.2-1.3) 02/18/24 09:06
AST 26 U/L (17-59) 02/18/24 09:06
ALT 27 U/L (0-50) 02/18/24 09:06
Alkaline Phosphatase 78 U/L (38-126) 02/18/24 09:06
Most recent labs reviewed.
Chest X-Ray: Image Reviewed and Report Reviewed
CT Scan: Image Reviewed and Report Reviewed
MRI: Image Reviewed and Report Reviewed
Microbiology: Report Reviewed
Micro Results:
02/22/24 21:02 Blood Culture - Preliminary
Blood/Venous No Growth in 72 hours- Final report to follow
02/22/24 19:56 Blood Culture - Preliminary
Blood/Venous No Growth in 72 hours- Final report to follow
02/17/24 15:27 Fungal Culture - Preliminary
Csf Culture in progress.
Positive cultures are reported as soon as detected.
Final report to follow in four to five weeks.
02/19/24 14:20 Fungal Culture - Preliminary
Csf Culture in progress.
Positive cultures are reported as soon as detected.
Final report to follow in four to five weeks.
02/17/24 10:13 Blood Culture - Final
Blood/Venous No Growth - Final Report
02/17/24 15:27 CSF Culture - Final
Csf No Growth After 5 Days - Final Report
Gram Stain - Final
02/17/24 10:13 Blood Culture - Final
Blood/Venous No Growth - Final Report
02/17/24 15:27 Meningitis/Encephalitis Panel (PCR) - Final
Csf
02/17/24 10:13 Influenza Types A & B (LEO) - Final
Nasal Swab Negative for Influenza A & B, NAAT
Negative results must be combined with clinical observations
and patient history.
Nucleic Acid Amplification test (NAAT)performed on the
[employer] platform.
Speech therapy recommendations reviewed.
--- NOTE | 2024-02-26 15:00 | PTCARENOTE ---
Patient's going into a ventricular rhythm a few times this afternoon. TT to Dr and resident. Order's for EKG and lab work.
--- NOTE | 2024-02-26 15:52 | PHANOTE ---
Flucytosine Levels
Peak and Trough were collected Tuesday 02/20 and sent to [facility]
Trough results available today; peak not yet available from [facility]
Trough = 49.7, goal trough is > 25 for efficacy - patient at goal
Awaiting peak to assess for toxicity; however, patient does not have any overt toxicity symptoms
Will continue present dosing pending peak results
[2024-02-26 16:22] LABS: Magnesium 1.8 mg/dl (1.6-2.3); Phosphorus 3.4 mg/dl (2.5-4.5); Potassium 3.2 mmol/L (3.5-5.1)
[2024-02-26] MEDS: TYLENOL 1000 MG TUBE (16:46)
[2024-02-26] MEDS: NSS 500 IV (16:46)
--- NOTE | 2024-02-26 17:29 | CM ---
Patient from [facility] with Dx Relapsed cryptococcal encephalitis/meningitis, Midbrain stroke on 02/19, Febrile State-possible aspiration pneumonia, Acute TME, RUE DVT, Hypokalemia, episode NSVT today. Failed VSE - dobhoff tube placed- tube
feeds started. Receiving IV Amphotericin B, flucytosine PO, IV ceftriaxone, IV Decadron, IVF. PT & OT 02/25 acute vs skilled rehab, able to follow a few commands.
Spoke with Dr John; it will be some time before patient will be ready for d/c. She spoke with Dr Newell in the hopes [facility] will accept the patient back when medically ready. She feels patient should return to an acute rehab setting not
skilled rehab.
Plan watch for IV antifungal/IV Abx needs at discharge.
Plan follow feeding needs for d/c.
Plan follow patient's mentation and ability to participate with PT/OT.
Plan contact [facility] when less medically acute re; return to [facility].
[2024-02-26] MEDS: [UNRECOGNIZED DRUG - OTHER] PO (17:52)
[2024-02-26] MEDS: AMBISOME 212.5 MG IV (17:52)
[2024-02-26] MEDS: D5W 50 IV ×2 (17:52→19:41)
[2024-02-26] MEDS: KCL ELIXIR 40 MEQ TUBE (18:04)
--- NOTE | 2024-02-26 18:10 | PTCARENOTE ---
Patient's K came back at 3.2. Instructed by Resident Jennifer to give 20:00 Potassium dose now.
--- NOTE | 2024-02-26 18:11 | PTCARENOTE ---
Patient sleeping the evening. Attempted to give Flucytosine but patient will not follow commands. He will open eyes then falls back asleep. Pt unable to take Flucytosine at this time and ID, made aware. She reports to try in an hour or
two as the suspension type of this medication cannot be safely made at night. Will pass on to nightshift.
[2024-02-26] MEDS: COREG 12.5 MG TUBE (19:40)
[2024-02-26] MEDS: ELIQUIS 5 MG TUBE (19:40)
--- NOTE | 2024-02-26 23:59 | PTCARENOTE ---
Patient's rectal temp 95.3. fisher scallop provider made aware and to order constantin candelaria.
[2024-02-27] VITALS (15 sets, daily range): BP systolic 98–173; BP diastolic 56–89; PULSE 71; O2SAT 96
--- NOTE | 2024-02-27 02:20 | PTCARENOTE ---
Patient more awake and alert overnight. B/L hand mitts were ripped off, dobhoff ripped out, and patient attempted to get OOB on his own. receivable clerk provider made aware.
[2024-02-27 03:55] LABS: % Basophils 0.1 % (0-2); % Immature Granulocytes 0.6 % (0-0.5); % Monocytes 3.1 % (1.7-9.3); % Neutrophils 90.2 % (42.2-75.2); Absolute Immature Granulocytes 0.1 10^3/uL (0-0.05); Absolute Lymphocytes 0.6 10^3/uL (1.2-3.4); Absolute Monocytes 0.3 10^3/uL (0.1-0.6); Absolute Neutrophils 8.7 10^3/uL (1.4-6.5); Hematocrit 28.8 % (39.0-52.0); Hemoglobin 10.4 g/dL (13.0-18.0); Mean Corp Hgb Conc. 36.1 g/dL (33.0-37.0); Mean Corpuscular Hgb 34.2 pg (27.0-31.0); Mean Corpuscular Volume 94.7 fL (80.0-94.0); Mean Platelet Volume 9.5 fL (7.4-10.4); Nucleated Red Blood Cells % 0 % (-); Platelet Count 218 10^3/uL (130-400); Red Blood Cell Count 3.04 10^6/uL (4.70-6.10); Red Cell Dist. Width 12.4 % (11.5-14.5); White Blood Cell Count 9.6 10^3/uL (4.8-10.8)
[2024-02-27 04:16] LABS: Blood Urea Nitrogen 47 mg/dl (9-20); Calcium 9.3 mg/dl (8.4-10.2); Carbon Dioxide 22 mmol/L (22-30); Chloride 111 mmol/L (98-107); Estimated Creatinine Clearance 58 ml/min; Glucose 114 mg/dl (70-99); Potassium 3.7 mmol/L (3.5-5.1); Sodium 143 mmol/L (135-145); eGFR > 60.00
[2024-02-27] MEDS: [UNRECOGNIZED DRUG - OTHER] 1500 MG PO ×3 (05:29→18:11)
--- NOTE | 2024-02-27 05:58 | PTCARENOTE ---
Patient reached goal body temp of 97. Anisha hugger off.
--- NOTE | 2024-02-27 06:58 | W.PN.HOSP.TC ---
Today's Communication/Plan
-
Reinsertion of Dobbhoff
Lowered Coreg dose to 6.25mg BID
Continue antifungal therapy
Assessment / Plan
Assessment / Plan
IMPRESSION: This is a 78 year old male patient coming to the ER from [facility] with concerns of altered mental status and fever. He was very recently admitted to from 01/17 to 02/12 for Cryptococcal meningitis and CVA (acute ischemic stroke in the
Left cerebral peduncle).
Assessment:
Fever
Altered mental status
Occlusive thrombus in subclavian, axillary and proximal basilic vein
Hx of cryptococcal meningitis
CVA (acute ischemic stroke in the left cerebral peduncle)
Hyperlipidemia
PLAN:
#Relapsed cryptococcal encephalitis/meningitis
-Repeat LP with opening pressure of 9 mmHg.
-ID involved in care and patient has been resumed back on IV amphotericin B
-Flucytosine changed to liquid after Dobhoff placement
-Monitor for nephrotoxicity, cr 0.9 today
-Continue IVF
-Repeat therapeutic LP if any signs of increased ICP develops
-continue monitoring electrolytes K/mg/ca
-Continue IV dexamethasone as per ID
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
-Patient had new right upper extreme weakness and right eye lateral gaze palsy
-MRI brain on 02/18 without contrast showing small midbrain stroke
-ST cleared for dysphagia diet.
-neurology evaluated and suspecting-cryptococcus meningitis related vasculopathy
-GIL recommended as well although patient unstable for this. TTE did not show any new findings.
-EEG abnormal but no seizure activity
- Continue Eliquis
- Failure of video fluoro swallow study- placement of Dobbhoff tube on 02/24
- Reinsertion of Dobbhoff today due to pt removing tube, checked for right position by abd xray, restraints placed
#Febrile State-likely aspiration pneumonia
-Sputum culture pending
-Continue IV Rocephin as per ID
#Essential Hypertension
-Elevated Bp readings: SBP 150s/160s
-Discontinue Coreg 12.5mg BID due to pippa
-Started Coreg 6.25mg BID, monitor HR
-Continue Norvasc
-Continue hydralazine prn
#Acute TME
-Suspected from stroke related? vs cryptococcal infection related
-Avoid sedative medication
-Continue supportive care
-Dobbhoff tube placement today
#Right UE DVT
- involving rt subclavian,axillary and proximal basillar vein on 02/09
- maintain on Eliquis therapy
#Hypokalemia
-patient continue to be hypokalemic despite 60meq K
-K 3.7 today, monitor
-Continue potassium elixir
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
-resolved
#Hyperlipidemia
-Continue atorastatin
#Thyroid nodule
-followed by endocrine but apparently discharged by them--biopsy in 2022 was negative--TSH WNL
DVT prophylaxis
Code status --Full code
Anticipated Discharge: > 48 hours
Subjective/Interval History
-
Date of Service: February 27, 2024
Patient had pulled out NGT overnight. Patient continues have waxing and waning episodes of orientation.
Objective Data
-
Labs:
Laboratory Results
02/27/24
03:35
WBC 9.6
Hgb 10.4 L
Hct 28.8 L
Plt Count 218
Sodium 143
Potassium 3.7
Chloride 111 H
Carbon Dioxide 22
BUN 47 H
Creatinine 0.9
Glucose 114 H
Calcium 9.3
Vital Signs:
Vital Signs
Temp Pulse Resp BP Pulse Ox
97.5 F 66 18 133/89 93
02/27/24 05:00 02/27/24 06:00 02/27/24 06:00 02/27/24 06:00 02/26/24 23:04
I&O
02/25/24 02/26/24 02/27/24
06:59 06:59 06:59
Intake Total 3852 / 3852 1200 / 1200 1300 / 1300
Output Total 3500 / 3500 2850 / 2850 2850 / 2850
Balance 352 / 352 -1650 / -1650 -1550 / -1550
Review of Systems
-
Unable to obtain full review of systems at this time due to: Other (Patient not fully oriented)
Physical Exam
-
General: No Apparent Distress
HEENT: Normocephalic
Respiratory: Clear to Auscultation
Cardiac: Regular Rhythm and S1/S2
GI: Soft, Nontender, Nondistended and Other (Dobhoff)
Musculoskeletal: No Edema
Skin: Warm and Dry
Neuro: Awake and Alert; Negative Oriented
--- NOTE | 2024-02-27 08:38 | W.PN.ID1 ---
Addendum entered and electronically signed by Naa John MD 02/27/24 13:40:
I saw and evaluated the patient. I reviewed the resident�s note and agree with findings and plan as documented in the resident�s note.
SOAP
S:
Waxing and waning mental status, Im cautiously optimistic he may be trending towards improvement
afebrile since high dose steroids started
bp stable
O:
VSS - afebrile
Physical Exam
Constitutional: No Acute Distress and Chronically Ill
Cardiovascular: Regular Rate and S1/S2; Negative Murmur or Rub
Pulmonary: Clear and Symmetric; Negative Wheezes or Rales
Gastrointestinal: Soft, Non Tender, Non Distended and Normal Bowel Sounds
Skin: Warm and Dry; Negative Rash or Jaundice
Labs reviewed
A&P
PIIRS 'Post Infectious Inflammatory Response Syndrome'
Cryptococcal Meningitis
Fever - possibly resolved
AMS - intermittent
- c/w high dose dexamethasone, started 02/24 for PIIRS; would have expected CSF culture to be positive by 7 days, csf fungal culture remains in progress and is NGTD, note that routine CSF culture would typically grow Crypto and is finalized negative
- clinical response may take up to 7 days
- would typically taper weekly if we have seen response
- c/w lipo ampho B at 4 mg/kg
- flucytosine 1500 mg po QID
- trough 49.7 goal is >25; awaiting peak
- duration pending course, may consider 4 week total course
- daily cbc, bmp, mag levels
- aggressive K/mag replacement - appreciate IM service
- avoid nephrotoxic agents as feasible - ok for low dose NSAIDs if needed - careful monitoring of renal function
- pretreatment with tylenol and PRN for rigors/fevers
- PICC in place for ampho
- daily pretreatment with 500 ccs NS bolus in addition to maintenance fluids; dose was increased today by IM service given progression of Cr level
- hydration with normal saline, follow Na closely
Possible developing aspiration pneumonia vs pneumonitis
Aspiration
- mental status waxing
- exception for npo for flucytosine, compounding is also an option if patient consistently unable to swallow
- hasnt produced a sputum
- completed 5 days of ceftriaxone, can stop
Stroke
- cryptococcus is associated with stroke occasionally, no modifiable risk factors from ID perspective
- EEGs last week were not consistent with seizure
- follow closely
AW
Original Note:
Date of Service
Date of Service: February 27, 2024
Today's Communication
Rocephin day 5.
Amphotericin B and flucytosine-restarted on 02/16.
Continue monitoring CBC, CMP, phosphorus, magnesium.
Continue IV fluid maintenance therapy.
Assessment / Plan
Assessment -
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
Persistent fevers
AMS - intermittent
CSF cultures-day 7 still continues to remain negative.
Plan -
Relapsed Cryptococaal meningitis -
lipo ampho B at 4 mg/kg daily
-Continue daily pretreatment with 500 cc NS bolus, continue IV maintenance fluids. Serum creatinine improved today.
-Monitor with daily BMP and magnesium levels, aggressive potassium and magnesium replacement as needed-appreciate internal medicine service.
-Continue pretreatment with Tylenol for rigors and as needed for rigors.
flucytosine 1500 mg po QID, switched to tubes.
-Clinical pharmacy assisted with obtaining flucytosine levels which were sent out yesterday, will follow-up with results-appreciate clinical pharmacy service.
plan at least 4 weeks of re-induction and possibly longer pending repeat LP at the end of 4 weeks - therapy was restarted 02/16
a 2019 review of the literature reported 8 cases of cryptococcal endocarditis associated with cryptococcal meningitis in 40 years; almost all patients had hardwear in the heart or were known to be immunocompromised - happily Mr Juárez has neither.
The duration of treatment for cryptococcal meningitis is at least a year. GIL unlikely to exchange mechanic. ( copied from Dr. John notes, and after discussing her rationale)
Also in the setting of persistent fevers could not rule out the possibility of PIIRS. Hence patient is added on dexamethasone IV 6 mg once a day - day 3 today.
Persistent fevers-
Blood cultures x 2 negative, urine analysis unrevealing.
Evidence of pneumonitis on chest x-ray, concern for aspiration pneumonia in the setting of persistent fevers. Could also be secondary to PIIRS.
repeat Dobbhoff placement planned today to reduce the risk of aspiration.
sputum cultures are pending. Patient is currently on Rocephin-day 5.
Acute Stroke
appreciate neurology input
cryptococcus is associated with stroke occasionally, no modifiable risk factors from ID perspective
follow closely
Chief Complaint
-: Fever and Other (Fungal Meningitis)
Subjective / Review of Systems
Overnight patient had temperatures ranging from 95.7-96.8, his Dobbhoff tube was removed and he had an episode of aspiration again. As per nursing team update there might be a second Dobbhoff tube placement today.
Review of Systems: No Fever, No Chills, No Headache, Stiff Neck, Cough, No Sputum Production, No Chest Pain, No Palpitations, No Nausea, No Dysuria and No Joint Pain
Vital Signs / Physical Exam
Vital Signs
Vital Signs
Temp Pulse Resp BP Pulse Ox
97.5 F 66 18 133/89 93
02/27/24 05:00 02/27/24 06:00 02/27/24 06:00 02/27/24 06:00 02/26/24 23:04
Physical Exam
Constitutional: Comfortable
Eyes: Other (Disconjugate gaze.); Negative Pupils Equal
Cardiovascular: Regular Rate and S1/S2; Negative Murmur, Rub or Gallop
Pulmonary: Clear; Negative Wheezes, Rales or Rhonchi
Gastrointestinal: Soft, Non Tender, Non Distended and Normal Bowel Sounds
Extremities: Negative Edema or Cyanosis
Skin: Warm
Neurological: Awake and Alert; Negative Oriented
Psychological: Calm
Objective Data
Lab Data
Lab Results
02/27/24 03:35
02/27/24 03:35
PT 19.5 Sec (11.4-14.6) H 02/17/24 10:13
INR 1.67 02/17/24 10:13
APTT 25.1 Sec (23.4-35.0) 02/17/24 10:13
Estimated Creat Clear 58 ml/min 02/27/24 03:35
Lactic Acid Cancelled 02/17/24 14:15
Total Bilirubin 1.3 mg/dl (0.2-1.3) 02/18/24 09:06
AST 26 U/L (17-59) 02/18/24 09:06
ALT 27 U/L (0-50) 02/18/24 09:06
Alkaline Phosphatase 78 U/L (38-126) 02/18/24 09:06
Most recent labs reviewed.
Chest X-Ray: Image Reviewed and Report Reviewed
CT Scan: Image Reviewed and Report Reviewed
MRI: Image Reviewed and Report Reviewed
Microbiology: Report Reviewed
Micro Results:
02/22/24 21:02 Blood Culture - Preliminary
Blood/Venous No Growth in 4 days- Final report to follow
02/22/24 19:56 Blood Culture - Preliminary
Blood/Venous No Growth in 4 days- Final report to follow
02/17/24 15:27 Fungal Culture - Preliminary
Csf Culture in progress.
Positive cultures are reported as soon as detected.
Final report to follow in four to five weeks.
02/19/24 14:20 Fungal Culture - Preliminary
Csf Culture in progress.
Positive cultures are reported as soon as detected.
Final report to follow in four to five weeks.
02/17/24 10:13 Blood Culture - Final
Blood/Venous No Growth - Final Report
02/17/24 15:27 CSF Culture - Final
Csf No Growth After 5 Days - Final Report
Gram Stain - Final
02/17/24 10:13 Blood Culture - Final
Blood/Venous No Growth - Final Report
02/17/24 15:27 Meningitis/Encephalitis Panel (PCR) - Final
Csf
02/17/24 10:13 Influenza Types A & B (LEO) - Final
Nasal Swab Negative for Influenza A & B, NAAT
Negative results must be combined with clinical observations
and patient history.
Nucleic Acid Amplification test (NAAT)performed on the
[employer] platform.
Speech therapy recommendations reviewed.
--- NOTE | 2024-02-27 09:36 | W.PN.UPDATE ---
Addendum entered and electronically signed by MEGAN Underwood 02/27/24 10:38:
02/26 abd Xray Nonspecific bowel gas pattern without signs of obstruction. Enteric tube in stomach.
Xray confirmed DHT placement ok to use
Original Note:
Update Note
Progress Note Update
called back as pulled out DHT last PM. Reviewed with speech this am still with risk for eating orally. DHT replaced right nare at 65cm with some mild resistence from pt with inability to move neck check X ray to confirm placement.
[2024-02-27] MEDS: DECADRON 6 MG IV ×2 (09:52→14:21)
[2024-02-27] MEDS: ELIQUIS 5 MG TUBE ×2 (11:42→19:43)
[2024-02-27] MEDS: KCL ELIXIR 40 MEQ TUBE ×2 (11:43→19:43)
[2024-02-27] MEDS: LIPITOR 20 MG TUBE (11:44)
[2024-02-27] MEDS: LOW STRENGTH ASPIRIN 81 MG TUBE (11:44)
[2024-02-27] MEDS: MAGNESIUM OXIDE 500 MG PO ×2 (11:45→19:41)
[2024-02-27] MEDS: PREVACID 30 MG TUBE (11:46)
[2024-02-27] MEDS: NORVASC 10 MG TUBE (11:46)
[2024-02-27] MEDS: THERAGRAN 1 TABLET PO (11:47)
[2024-02-27] MEDS: NSS 1000 IV ×2 (11:48→20:10)
[2024-02-27] MEDS: STERILE WATER FOR INJECTION 10 ML IV (11:49)
[2024-02-27] MEDS: ROCEPHIN 1000 MG IV (11:49)
[2024-02-27] MEDS: COREG TUBE (12:46)
--- NOTE | 2024-02-27 14:35 | W.PN.UPDATE ---
Update Note
Progress Note Update
I saw and evaluated the patient. I reviewed the resident�s note and agree with findings and plan as documented in the resident�s note.
Patient more awake although remains pleasantly disoriented
Patient pulled out Dobbhoff tube in the night and has been replaced in the morning by GI
Patient remains unsafe to be started on oral diet per speech therapy evaluation
Patient required to be restrained to avoid patient from pulling out tube again.
Discussed with ID and will change flucytosine to liquid form through NGT
Rocephin course per ID.
ID suspecting postinfectious immune reconstitution syndrome, in light of persisting encephalopathy despite improving microbiological marker
Patient started on IV dexamethasone 6mg BID , continue for now, slow recovery;
Patient have some episodes of slow heart rate, decrease dose of Coreg to 6.25 mg twice daily
Continue Norvasc 10 mg daily
Add hydralazine to regimen if blood pressure remains elevated
Patient had episode of NSVT yesterday, repeat electrolyte checks were within normal limit
EKG showing QTc of ~ 475
Renal function remains stable, maintain on NS @ 100mls/hr
Case discussed with ID.
Remains a complex care and concern of further complications.
Total time spent : 51 mins
--- NOTE | 2024-02-27 14:37 | PTCARENOTE ---
Rec'd pt this AM. DHT replaced by [facility] [employer]. Pt tolerated procedure. Remains confused but with some oriented conversation. More awake today. appears comfortable. at bedside
--- NOTE | 2024-02-27 15:25 | PHANOTE ---
Flucytosine Levels
Peak and Trough were collected Tuesday 02/20 and sent to [facility]
Peak = 60.3, drawn ~2H after 0600 PO dose
Trough = 49.7, drawn appropriately just before 1200 dose
Goal peak < 100 to prevent toxicity and goal trough >/= 25 for efficacy
Patient is at goal - continue present dosing
Intensive Care Med (2019) 46:1127�1153 [email or web address]
[2024-02-27] MEDS: TYLENOL 1000 MG TUBE (17:18)
[2024-02-27] MEDS: NSS 500 IV (17:18)
[2024-02-27] MEDS: D5W 50 IV ×2 (18:07→19:41)
[2024-02-27] MEDS: AMBISOME 212.5 MG IV (18:08)
[2024-02-27] MEDS: COREG 6.25 MG TUBE (19:41)
[2024-02-27] MEDS: NSS IV (20:09)
--- NOTE | 2024-02-27 22:45 | PTCARENOTE ---
Assumed care of patient. Patient is talking more but with confused conversations. NIH of 16, difficult to have patient follow commands. Bare hugger is on the medium setting with a goal temperature of 97.0. Nasogastric tube in right nare running at
goal of 45. Patient resting in bed with call andrews in reach.
[2024-02-28] VITALS (15 sets, daily range): BP systolic 113–151; BP diastolic 49–97; PULSE 60; O2SAT 97
[2024-02-28] MEDS: [UNRECOGNIZED DRUG - OTHER] 1500 MG PO ×4 (00:23→18:01)
[2024-02-28 04:34] LABS: % Immature Granulocytes 0.6 % (0-0.5); % Lymphocytes 5.6 % (20.5-51.1); % Monocytes 3.5 % (1.7-9.3); % Neutrophils 90.3 % (42.2-75.2); Absolute Immature Granulocytes 0.1 10^3/uL (0-0.05); Absolute Lymphocytes 0.4 10^3/uL (1.2-3.4); Absolute Monocytes 0.3 10^3/uL (0.1-0.6); Hematocrit 24.9 % (39.0-52.0); Hemoglobin 8.8 g/dL (13.0-18.0); Mean Corp Hgb Conc. 35.3 g/dL (33.0-37.0); Mean Corpuscular Hgb 33.6 pg (27.0-31.0); Mean Platelet Volume 9.6 fL (7.4-10.4); Nucleated Red Blood Cells % 0 % (-); Platelet Count 196 10^3/uL (130-400); Red Blood Cell Count 2.62 10^6/uL (4.70-6.10); Red Cell Dist. Width 12.2 % (11.5-14.5); White Blood Cell Count 7.8 10^3/uL (4.8-10.8)
[2024-02-28 04:55] LABS: Blood Urea Nitrogen 42 mg/dl (9-20); Calcium 7.6 mg/dl (8.4-10.2); Carbon Dioxide 18 mmol/L (22-30); Chloride 117 mmol/L (98-107); Estimated Creatinine Clearance 58 ml/min; Glucose 111 mg/dl (70-99); Potassium 2.9 mmol/L (3.5-5.1); Sodium 143 mmol/L (135-145); eGFR > 60.00
--- NOTE | 2024-02-28 05:29 | W.PN.UPDATE ---
Update Note
Progress Note Update
this am Ca level 7.6 corrected calcium ----- repleted as needed
hypokalemia with K level 2.9 repleted as needed
[2024-02-28] MEDS: KLOR-CON 40 MEQ TUBE (05:57)
[2024-02-28] MEDS: CALCIUM GLUCONATE 100 IV (05:57)
[2024-02-28] MEDS: NSS 1000 IV ×2 (05:57→17:14)
--- NOTE | 2024-02-28 06:55 | W.PN.UPDATE ---
Update Note
Progress Note Update
this am K level 2.9 will replete as needed.
Ca is 7.6 corrected calcium is 7.4 based on the last albumin result in the chart will replete and will order new albumin level.
--- NOTE | 2024-02-28 07:25 | W.PN.HOSP.TC ---
Addendum entered and electronically signed by Jewel Montaño MD 02/28/24 14:21:
I saw and evaluated the patient. I reviewed the resident�s note and agree with findings and plan as documented in the resident�s note.
Patient remains disoriented, talking gibberish in the morning
Dobbhoff tube in place and able to be utilized for feed and medication
Unfortunately had to be remained restrained due to at risk of pulling out Dobbhoff tube second time.
Discussed with ID and will change flucytosine to liquid form through NGT
Rocephin finished
Blood culture report pending
ID suspecting postinfectious immune reconstitution syndrome, in light of persisting encephalopathy despite improving microbiological marker
Patient started on IV dexamethasone 6mg BID , continue for now, slow recovery;
Patient have some episodes of slow heart rate, decrease dose of Coreg to 6.25 mg twice daily
Continue Norvasc 10 mg daily, added hydralazine
Patient had episode of NSVT, repeat electrolyte checks were within normal limit
EKG showing QTc of ~ 475
Renal function remains stable, maintain on NS @ 100mls/hr
Hypokalemia/metabolic acidosis
Patient has significant diarrhea and likely causing worsening of hypokalemia and anion gap metabolic acidosis
provide oral bicarb through liquid
Total time spent : 52 mins
Original Note:
Today's Communication/Plan
-
Monitor BMP
Blood cultures pending
Continue antifungal therapy
Assessment / Plan
Assessment / Plan
IMPRESSION: This is a 78 year old male patient coming to the ER from [facility] with concerns of altered mental status and fever. He was very recently admitted to from 01/17 to 02/12 for Cryptococcal meningitis and CVA (acute ischemic stroke in the
Left cerebral peduncle).
Assessment:
Fever
Altered mental status
Occlusive thrombus in subclavian, axillary and proximal basilic vein
Hx of cryptococcal meningitis
CVA (acute ischemic stroke in the left cerebral peduncle)
Hyperlipidemia
PLAN:
#Relapsed cryptococcal encephalitis/meningitis
-Repeat LP with opening pressure of 9 mmHg.
-ID involved in care and patient has been resumed back on IV amphotericin B
-Continue flucytosine
-Monitor for nephrotoxicity, cr 0.9 today
-Continue IVF
-Repeat therapeutic LP if any signs of increased ICP develops
-continue monitoring electrolytes K/mg/ca
-Continue IV dexamethasone as per ID
-Temp 94.9 currently, pt with melissa candelaria
-Blood cultures ordered
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
-Patient had new right upper extreme weakness and right eye lateral gaze palsy
-MRI brain on 02/18 without contrast showing small midbrain stroke
-ST cleared for dysphagia diet.
-neurology evaluated and suspecting-cryptococcus meningitis related vasculopathy
-GIL recommended as well although patient unstable for this. TTE did not show any new findings.
-EEG abnormal but no seizure activity
- Continue Eliquis
- Failure of video fluoro swallow study- placement of Dobbhoff tube on 02/24
#Febrile State-likely aspiration pneumonia
-Sputum culture pending
-Discontinue IV Rocephin as per ID
#Essential Hypertension
-Elevated Bp readings: SBP 150s/160s
-Discontinue Coreg 12.5mg BID due to pippa
-Cotinue Coreg 6.25mg BID, monitor HR
-Continue Norvasc
-Continue hydralazine prn
#Acute TME
-Suspected from stroke related? vs cryptococcal infection related
-Avoid sedative medication
-Continue supportive care
-Dobbhoff tube placement today
#Possible Non anion gap metabolic acidosis
-CO decreased to 18, k 2.9, chl 117 in AM
-Sodium bicarb given- 2 doses
#Right UE DVT
- involving rt subclavian,axillary and proximal basillar vein on 9/16
- maintain on Eliquis therapy
#Hypokalemia
-patient continue to be hypokalemic despite 60meq K
-K 2.9 today, repleted in AM, recheck BMP in afternoon
-Continue potassium elixir
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
-resolved
#Hyperlipidemia
-Continue atorastatin
#Thyroid nodule
-followed by endocrine but apparently discharged by them--biopsy in 2022 was negative--TSH WNL
DVT prophylaxis
Code status --Full code
Anticipated Discharge: > 48 hours
Subjective/Interval History
-
Date of Service: February 28, 2024
Patient is mildly improving in orientation but still continues to wax and wane.
Objective Data
-
Labs:
Laboratory Results
02/28/24
04:02
WBC 7.8
Hgb 8.8 L
Hct 24.9 L
Plt Count 196
Sodium 143
Potassium 2.9 L
Chloride 117 H
Carbon Dioxide 18 L
BUN 42 H
Creatinine 0.9
Glucose 111 H
Calcium 7.6 L D
Vital Signs:
Vital Signs
Temp Pulse Resp BP Pulse Ox
96 F L 55 17 123/57 96
02/28/24 07:00 02/28/24 06:00 02/28/24 06:00 02/28/24 06:00 02/28/24 05:07
I&O
02/27/24 02/28/24 02/29/24
06:59 06:59 06:59
Intake Total 1300 / 1300 2240 / 2240
Output Total 2850 / 2850 2450 / 2450
Balance -1550 / -1550 -210 / -210
Review of Systems
-
Abdomen/GI: Reports No Symptoms
Physical Exam
-
General: No Apparent Distress
HEENT: Normocephalic
Respiratory: Clear to Auscultation
Cardiac: Regular Rhythm and S1/S2
GI: Soft, Nontender and Nondistended
Musculoskeletal: No Edema
Skin: Warm and Dry
Neuro: Awake and Alert; Negative Oriented
[2024-02-28] MEDS: SODIUM BICARBONATE 1300 MG TUBE ×2 (08:37→19:39)
[2024-02-28] MEDS: KCL ELIXIR 40 MEQ TUBE ×2 (08:37→19:39)
[2024-02-28] MEDS: PREVACID 30 MG TUBE (08:38)
[2024-02-28] MEDS: NORVASC 10 MG TUBE (08:38)
[2024-02-28] MEDS: LOW STRENGTH ASPIRIN 81 MG TUBE (08:38)
[2024-02-28] MEDS: THERAGRAN 1 TABLET PO (08:38)
[2024-02-28] MEDS: LIPITOR 20 MG TUBE (08:39)
[2024-02-28] MEDS: ELIQUIS 5 MG TUBE ×2 (08:39→19:40)
[2024-02-28] MEDS: COREG TUBE (08:39)
[2024-02-28] MEDS: DECADRON 6 MG IV ×2 (08:40→14:11)
[2024-02-28] MEDS: MAGNESIUM OXIDE PO (08:43)
--- NOTE | 2024-02-28 09:18 | W.PN.ID1 ---
Addendum entered and electronically signed by Kim Walton MD 02/28/24 15:45:
I saw and evaluated the patient. I reviewed the resident�s note and agree with most of the findings and plan as documented in the resident�s note.
S:
Per , pt more confused today as compared to yesterday. Pt very weak.
O:
VSS - T= 94.9
Physical Exam
Constitutional: Chronically Ill
Cardiovascular: Regular Rate and S1/S2; Negative Murmur or Rub
Pulmonary: Clear anteriorly
Gastrointestinal: Soft, Non Tender, Non Distended and Normal Bowel Sounds
Neuro: Awake, confused
PICC: LUE no erythema
Labs reviewed
A&P
PIIRS 'Post Infectious Inflammatory Response Syndrome'
Cryptococcal Meningitis
Fever - resolved, now hypothermic
AMS - intermittent
- c/w high dose dexamethasone, started 02/24 for PIIRS; would have expected CSF culture to be positive by 7 days, csf fungal culture remains in progress and is NGTD, note that routine CSF culture would typically grow Crypto and is finalized negative
- clinical response may take up to 7 days
- would typically taper weekly if we have seen response
- c/w lipo ampho B at 4 mg/kg
- flucytosine 1500 mg po QID
- trough 49.7 goal is >25; awaiting peak
- duration pending course, may consider 4 week total course
- daily cbc, bmp, mag levels
- aggressive K/mag replacement - appreciate IM service
- avoid nephrotoxic agents as feasible - ok for low dose NSAIDs if needed - careful monitoring of renal function
- pretreatment with tylenol and PRN for rigors/fevers
- PICC in place for ampho
- daily pretreatment with 500 ccs NS bolus in addition to maintenance fluids; dose was increased today by IM service given progression of Cr level
- hydration with normal saline, follow Na closely
Acute hypothermia
-? due to stroke
- Repeat UA - negative
-Repeat bcx pending
s/p Possible aspiration pneumonia vs pneumonitis
Aspiration
- mental status waxing
-DHT in placed
- completed 5 days of ceftriaxone.
Stroke
- cryptococcus is associated with stroke occasionally, no modifiable risk factors from ID perspective
- EEGs last week were not consistent with seizure
- follow closely
Original Note:
Date of Service
Date of Service: February 28, 2024
Today's Communication
discontinue Rocephin, continue amphotericin B, flucytosine, dexamethasone.
Assessment / Plan
Assessment -
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
Persistent fevers
AMS - intermittent
CSF cultures-day 9 still continues to remain negative.
Plan -
Relapsed Cryptococaal meningitis -
lipo ampho B at 4 mg/kg daily
-Continue daily pretreatment with 500 cc NS bolus, continue IV maintenance fluids. Serum creatinine improved today.
-Monitor with daily BMP and magnesium levels, aggressive potassium and magnesium replacement as needed-appreciate internal medicine service.
-Continue pretreatment with Tylenol for rigors and as needed for rigors.
flucytosine 1500 mg po QID, switched to tubes.
-Clinical pharmacy assisted with obtaining flucytosine levels which were sent out yesterday, will follow-up with results-appreciate clinical pharmacy service.
plan at least 4 weeks of re-induction and possibly longer pending repeat LP at the end of 4 weeks - therapy was restarted 02/16
a 2019 review of the literature reported 8 cases of cryptococcal endocarditis associated with cryptococcal meningitis in 40 years; almost all patients had hardwear in the heart or were known to be immunocompromised - happily Mr Juárez has neither.
The duration of treatment for cryptococcal meningitis is at least a year. GIL unlikely to tar heat exchanger cleaner. ( copied from Dr. John notes, and after discussing her rationale)
Also in the setting of persistent fevers could not rule out the possibility of PIIRS. Hence patient is added on dexamethasone IV 6 mg once a day - day 4 today.
Persistent fevers-
Blood cultures x 2 negative, urine analysis unrevealing.
Evidence of pneumonitis on chest x-ray, concern for aspiration pneumonia in the setting of persistent fevers. Could also be secondary to PIIRS.
repeat Dobbhoff placement planned today to reduce the risk of aspiration.
sputum cultures are pending. can discontinue Rocephin.
Acute Stroke
appreciate neurology input
cryptococcus is associated with stroke occasionally, no modifiable risk factors from ID perspective
follow closely
Chief Complaint
-: Fever and Other (Fungal Meningitis)
Subjective / Review of Systems
Review of Systems: No Fever, No Chills, No Headache, No Pharyngitis, No Stiff Neck, No Cough, No Sputum Production, No Chest Pain, No Palpitations, No Abdominal Pain, No Nausea, No Dysuria, No Joint Pain and No Skin Rash
Vital Signs / Physical Exam
Vital Signs
Vital Signs
Temp Pulse Resp BP Pulse Ox
97.3 F 59 17 129/90 96
02/28/24 07:00 02/28/24 08:39 02/28/24 06:00 02/28/24 08:38 02/28/24 05:07
Physical Exam
Constitutional: Comfortable and Other (PICC line on left subclavian)
Cardiovascular: Regular Rate and S1/S2; Negative Murmur, Rub or Gallop
Pulmonary: Clear; Negative Wheezes, Rales or Rhonchi
Gastrointestinal: Soft, Non Tender, Non Distended and Decreased Bowel Sounds
Genito-Urinary: Coughlin
Extremities: Negative Edema
Skin: Warm
Neurological: Awake; Negative Alert or Oriented
Psychological: Calm
Objective Data
Lab Data
Lab Results
02/28/24 04:02
PT 19.5 Sec (11.4-14.6) H 02/17/24 10:13
INR 1.67 02/17/24 10:13
APTT 25.1 Sec (23.4-35.0) 02/17/24 10:13
Estimated Creat Clear 58 ml/min 02/28/24 04:02
Lactic Acid Cancelled 02/17/24 14:15
Total Bilirubin 1.3 mg/dl (0.2-1.3) 02/18/24 09:06
AST 26 U/L (17-59) 02/18/24 09:06
ALT 27 U/L (0-50) 02/18/24 09:06
Alkaline Phosphatase 78 U/L (38-126) 02/18/24 09:06
Most recent labs reviewed.
Chest X-Ray: Image Reviewed and Report Reviewed
CT Scan: Image Reviewed and Report Reviewed
MRI: Image Reviewed and Report Reviewed
Microbiology: Report Reviewed
Micro Results:
02/22/24 21:02 Blood Culture - Final
Blood/Venous No Growth - Final Report
02/22/24 19:56 Blood Culture - Final
Blood/Venous No Growth - Final Report
02/17/24 15:27 Fungal Culture - Preliminary
Csf Culture in progress.
Positive cultures are reported as soon as detected.
Final report to follow in four to five weeks.
02/19/24 14:20 Fungal Culture - Preliminary
Csf Culture in progress.
Positive cultures are reported as soon as detected.
Final report to follow in four to five weeks.
02/17/24 10:13 Blood Culture - Final
Blood/Venous No Growth - Final Report
02/17/24 15:27 CSF Culture - Final
Csf No Growth After 5 Days - Final Report
Gram Stain - Final
02/17/24 10:13 Blood Culture - Final
Blood/Venous No Growth - Final Report
02/17/24 15:27 Meningitis/Encephalitis Panel (PCR) - Final
Csf
02/17/24 10:13 Influenza Types A & B (LEO) - Final
Nasal Swab Negative for Influenza A & B, NAAT
Negative results must be combined with clinical observations
and patient history.
Nucleic Acid Amplification test (NAAT)performed on the
[employer] platform.
Speech therapy recommendations reviewed.
Echocardiogram: Report Reviewed
[2024-02-28 14:34] LABS: Urine Albumin Negative (Neg - Trace); Urine Bilirubin Negative (Negative); Urine Character Clear (Clear); Urine Color Yellow; Urine Glucose Trace (Negative); Urine Ketone Negative (Negative); Urine Leukocyte Negative (Negative); Urine Nitrite Negative (Negative); Urine Occult Blood Negative (Negative); Urine Specific Gravity 1.005 (<1.030); Urine Urobilinogen Negative (Neg - 1+)
--- NOTE | 2024-02-28 15:36 | PN.CDI ---
CDI
- -
CDI:
Physician Documentation Request
Admit Date: 02/17/24 14:27
Dear Doctor,
Please review the following and provide your response in the progress notes.
Clinical Indicators:
- 02/27 2 gram IV Calcium gluconate given
Laboratory Tests
02/27/24 02/28/24
03:35 04:02
Calcium 9.3 7.6 L D
Please provide a diagnosis for the above lab values that were monitored and treatment rendered:
Hypocalcemia
Clinically insignificant abnormal lab value
Other
Use of terms such as suspected, likely, concern for, or probable (associated with a specific diagnosis that is being evaluated, monitored, or treated as if it exists) are acceptable and can be coded in the inpatient setting, when documented at the
time of discharge.
Thank you,
Isai Medina RN
CDI Specialist
Please use your independent medical judgment in providing your response.
--- NOTE | 2024-02-28 16:27 | CM ---
Patient from [facility] with Dx Relapsed cryptococcal encephalitis/meningitis, Midbrain stroke, likely aspiration pneumonia, Acute TME, RUE DVT, Hypokalemia. Room air. Receiving IV Amphotericin B, flucytosine PO, IV Decadron, IVF. Tube
feeds running at goal rate. Per nursing; confused, aphasia. PT & OT recommend acute vs skilled rehab.
Plan watch for IV antifungal/IV Abx needs at discharge.
Plan follow patient's mentation and ability to participate with PT/OT.
Plan contact [facility] [place] [facility] when less medically acute re; return to [facility] [place] [facility].
[2024-02-28 16:54] LABS: Blood Urea Nitrogen 45 mg/dl (9-20); Calcium 9.8 mg/dl (8.4-10.2); Carbon Dioxide 22 mmol/L (22-30); Chloride 111 mmol/L (98-107); Estimated Creatinine Clearance 58 ml/min; Glucose 146 mg/dl (70-99); Potassium 3.9 mmol/L (3.5-5.1); Sodium 143 mmol/L (135-145); eGFR > 60.00
[2024-02-28] MEDS: NSS 500 IV (17:14)
[2024-02-28] MEDS: TYLENOL 1000 MG TUBE (17:16)
[2024-02-28] MEDS: D5W 50 IV ×2 (18:01→21:24)
[2024-02-28] MEDS: AMBISOME 212.5 MG IV (18:01)
[2024-02-28] MEDS: COREG 6.25 MG TUBE (19:43)
[2024-02-29] VITALS (15 sets, daily range): BP systolic 121–175; BP diastolic 51–98; PULSE 60
[2024-02-29] MEDS: [UNRECOGNIZED DRUG - OTHER] 1500 MG PO ×5 (00:46→23:59)
[2024-02-29 05:15] LABS: Blood Urea Nitrogen 40 mg/dl (9-20); Calcium 9.7 mg/dl (8.4-10.2); Carbon Dioxide 24 mmol/L (22-30); Chloride 110 mmol/L (98-107); Estimated Creatinine Clearance 52 ml/min; Glucose 127 mg/dl (70-99); Potassium 3.4 mmol/L (3.5-5.1); Sodium 145 mmol/L (135-145); eGFR > 60.00
[2024-02-29 05:23] LABS: Hematocrit 30.7 % (39.0-52.0); Hemoglobin 10.8 g/dL (13.0-18.0); Mean Corp Hgb Conc. 35.2 g/dL (33.0-37.0); Mean Corpuscular Volume 90.8 fL (80.0-94.0); Mean Platelet Volume 9.7 fL (7.4-10.4); Platelet Count 267 10^3/uL (130-400); Red Blood Cell Count 3.38 10^6/uL (4.70-6.10); Red Cell Dist. Width 12.2 % (11.5-14.5); White Blood Cell Count 9.6 10^3/uL (4.8-10.8)
--- NOTE | 2024-02-29 07:37 | W.PN.HOSP.TC ---
Addendum entered and electronically signed by Jewel Montaño MD 02/29/24 14:48:
I saw and evaluated the patient. I reviewed the resident�s note and agree with findings and plan as documented in the resident�s note.
Patient mentation is better today and much more communicative, at times patient making some coherent comments
Speech therapy evaluated and patient passed swallow evaluation.
Will maintain Dobbhoff tube until repeat VSE on Saturday, discussed with spouse and understands it would be ideal to keep Dobbhoff as patient mentation has been waxing waning.
Flucytosine send out test resulted, levels were within normal limit
Currently being maintained on amphotericin B and flucytosine through NG tube
ID suspecting postinfectious immune reconstitution syndrome, in light of persisting encephalopathy despite improving microbiological marker
Patient with improvement in mentation today with IV dexamethasone 6mg BID therapy.
Blood pressure remains better controlled, adding hydralazine 25 mg every 8 hours through dobhoff tube.
Patient had episode of NSVT on tele, continue monitoring
Renal function remained stable, patient to get NS 500 mL fluid with amphotericin B dose.
If patient have any renal dysfunction will resume back NS IVF
Hypokalemia/metabolic acidosis - improved, continue monitor.
Discussed with ID
Care plan discussed with patient spouse at bedside.
Original Note:
Today's Communication/Plan
-
Continue antifungal therapy
Monitor BP, hydralazine 25mg TID initiated
Monitor BMP
Blood cultures pending
Assessment / Plan
Assessment / Plan
IMPRESSION: This is a 78 year old male patient coming to the ER from [facility] with concerns of altered mental status and fever. He was very recently admitted to from 01/17 to 02/12 for Cryptococcal meningitis and CVA (acute ischemic stroke in the
Left cerebral peduncle).
Assessment:
Fever
Altered mental status
Occlusive thrombus in subclavian, axillary and proximal basilic vein
Hx of cryptococcal meningitis
CVA (acute ischemic stroke in the left cerebral peduncle)
Hyperlipidemia
PLAN:
#Relapsed cryptococcal encephalitis/meningitis
-Repeat LP with opening pressure of 9 mmHg.
-ID involved in care and patient has been resumed back on IV amphotericin B
-Continue flucytosine
-Monitor for nephrotoxicity, cr 1.0 today
-Continue IVF boluses (pre- amphotericin B)
-Repeat therapeutic LP if any signs of increased ICP develops
-continue monitoring electrolytes K/mg/ca
-Calcium normal today 9.7 (was previously hypocalcemic at 7.9, was given IV calcium overnight on 02/27)
-check mag in AM
-Continue IV dexamethasone as per ID
-Flucytosine levels results in non toxic range
-Temp normal, was mildly hypothermic in AM
-Blood cultures pending
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
-Patient had new right upper extreme weakness and right eye lateral gaze palsy
-MRI brain on 02/18 without contrast showing small midbrain stroke
-ST cleared for dysphagia diet.
-neurology evaluated and suspecting-cryptococcus meningitis related vasculopathy
-GIL recommended as well although patient unstable for this. TTE did not show any new findings.
-EEG abnormal but no seizure activity
- Continue Eliquis
- Failure of video fluoro swallow study- placement of Dobbhoff tube on 02/24
#Febrile State-likely aspiration pneumonia
-Sputum culture pending
-Discontinued IV Rocephin on 02/26
#Essential Hypertension
-Elevated Bp readings: SBP 150s/160s
-Discontinue Coreg 12.5mg BID due to pippa
-Cotinue Coreg 6.25mg BID, monitor HR
-Continue Norvasc
-Hydralazine 25mg Q8
#Episodic NSVT
-Asymptomatic, observe
-Monitor electrolytes
#Acute TME
-Suspected from stroke related? vs cryptococcal infection related
-Avoid sedative medication
-Continue supportive care, Dobbhoff tube placement
#Non anion gap metabolic acidosis-?diarrhea
-CO decreased to 18, k 2.9, chl 117 in AM
-Sodium bicarb given- 2 doses on 02/27
-Has appropriate bowel movements on tube feeds
#Right UE DVT
- involving rt subclavian,axillary and proximal basillar vein on 02/09
- maintain on Eliquis therapy
#Hypokalemia
-patient continue to be hypokalemic despite 60meq K
-K 3.4 today, replete as needed
-Continue potassium elixir
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
-resolved
#Hyperlipidemia
-Continue atorastatin
#Thyroid nodule
-followed by endocrine but apparently discharged by them--biopsy in 2022 was negative--TSH WNL
DVT prophylaxis
Code status --Full code
Anticipated Discharge: > 48 hours
Subjective/Interval History
-
Date of Service: February 29, 2024
Patient seems much more oriented today and is responding to some questions appropriately.
Objective Data
-
Labs:
Laboratory Results
02/29/24
04:25
WBC 9.6
Hgb 10.8 L D
Hct 30.7 L
Plt Count 267 D
Sodium 145
Potassium 3.4 L
Chloride 110 H
Carbon Dioxide 24
BUN 40 H
Creatinine 1.0
Glucose 127 H
Calcium 9.7
Vital Signs:
Vital Signs
Temp Pulse Resp BP Pulse Ox
97.5 F 57 14 151/51 98
02/29/24 07:00 02/29/24 06:00 02/29/24 06:00 02/29/24 06:00 02/28/24 20:23
I&O
02/28/24 02/29/24 03/01/24
06:59 06:59 06:59
Intake Total 2240 / 2240 3900 / 3900
Output Total 2450 / 2450 2099 / 2099
Balance -210 / -210 1800 / 1800
Review of Systems
-
All other systems: Reviewed and negative
[2024-02-29] MEDS: COREG TUBE ×2 (08:55→20:21)
[2024-02-29] MEDS: NORVASC 10 MG TUBE (08:56)
[2024-02-29] MEDS: ELIQUIS 5 MG TUBE ×2 (08:58→20:20)
[2024-02-29] MEDS: PREVACID 30 MG TUBE (08:58)
[2024-02-29] MEDS: THERAGRAN 1 TABLET PO (08:59)
[2024-02-29] MEDS: LOW STRENGTH ASPIRIN 81 MG TUBE (09:01)
[2024-02-29] MEDS: LIPITOR 20 MG TUBE (09:01)
[2024-02-29] MEDS: KCL ELIXIR 40 MEQ TUBE ×2 (09:02→20:22)
--- NOTE | 2024-02-29 09:02 | W.PN.ID1 ---
Date of Service
Date of Service: February 29, 2024
Today's Communication
Continue current antibiotics.
Assessment / Plan
Assessment -
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
Persistent fevers
- improved
AMS
- intermittent
CSF cultures-day 9 still continues to remain negative.
Plan -
Continue lipo ampho B at 4 mg/kg daily
-Continue daily pretreatment with 500 cc NS bolus, continue IV maintenance fluids. Serum creatinine stable.
-Monitor BMP and magnesium levels, aggressive potassium and magnesium replacement as needed.
-Continue pretreatment with Tylenol for rigors and as needed for rigors.
flucytosine 1500 mg po QID, switched to tubes.
-Clinical pharmacy assisted with obtaining flucytosine levels which were sent out. Will follow-up with results-appreciate clinical pharmacy service.
Prior plan of at least 4 weeks of re-induction and possibly longer pending repeat LP at the end of 4 weeks - therapy was restarted 02/16
On dexamethasone IV 6 mg once a day (d#5) for possibility of PIIRS.
Persistent fevers-
Blood cultures x 2 negative, urine analysis unrevealing.
Evidence of pneumonitis on chest x-ray, concern for aspiration pneumonia in the setting of persistent fevers. Could also be secondary to PIIRS.
Dobbhoff in place.
sputum cultures unobtainable as of yet.
Acute Stroke
appreciate neurology input
cryptococcus is associated with stroke occasionally, no modifiable risk factors from ID perspective
����������������������������������������������������������
Chief Complaint
-: Fever and Other (Cryptococcal Meningitis)
Vital Signs / Physical Exam
Vital Signs
Vital Signs
Temp Pulse Resp BP Pulse Ox
97.5 F 57 14 151/51 98
02/29/24 07:00 02/29/24 06:00 02/29/24 06:00 02/29/24 06:00 10/04/24 20:23
Physical Exam
Constitutional: Comfortable, Non-toxic and Other (PICC line on left subclavian)
Eyes: Sclera Anicteric
Cardiovascular: Regular Rate and S1/S2; Negative Murmur
Pulmonary: Clear and Non Labored; Negative Wheezes, Rales or Rhonchi
Gastrointestinal: Soft, Non Tender, Non Distended and Decreased Bowel Sounds
Genito-Urinary: Coughlin
Extremities: Negative Edema
Skin: Warm
Neurological: Awake; Negative Alert, Oriented or Meningeal Signs
Psychological: Calm
Objective Data
Lab Data
Lab Results
02/29/24 04:25
02/29/24 04:25
PT 19.5 Sec (11.4-14.6) H 02/17/24 10:13
INR 1.67 02/17/24 10:13
APTT 25.1 Sec (23.4-35.0) 02/17/24 10:13
Estimated Creat Clear 52 ml/min 02/29/24 04:25
Lactic Acid Cancelled 02/17/24 14:15
Total Bilirubin 1.3 mg/dl (0.2-1.3) 02/18/24 09:06
AST 26 U/L (17-59) 02/18/24 09:06
ALT 27 U/L (0-50) 02/18/24 09:06
Alkaline Phosphatase 78 U/L (38-126) 02/18/24 09:06
Most recent labs reviewed.
Micro Results:
02/28/24 20:50 Blood Culture - Pending
Blood/Venous
02/28/24 13:40 Blood Culture - Pending
Blood/Venous
02/22/24 21:02 Blood Culture - Final
Blood/Venous No Growth - Final Report
02/22/24 19:56 Blood Culture - Final
Blood/Venous No Growth - Final Report
02/17/24 15:27 Fungal Culture - Preliminary
Csf Culture in progress.
Positive cultures are reported as soon as detected.
Final report to follow in four to five weeks.
02/19/24 14:20 Fungal Culture - Preliminary
Csf Culture in progress.
Positive cultures are reported as soon as detected.
Final report to follow in four to five weeks.
02/17/24 10:13 Blood Culture - Final
Blood/Venous No Growth - Final Report
02/17/24 15:27 CSF Culture - Final
Csf No Growth After 5 Days - Final Report
Gram Stain - Final
02/17/24 10:13 Blood Culture - Final
Blood/Venous No Growth - Final Report
02/17/24 15:27 Meningitis/Encephalitis Panel (PCR) - Final
Csf
02/17/24 10:13 Influenza Types A & B (LEO) - Final
Nasal Swab Negative for Influenza A & B, NAAT
Negative results must be combined with clinical observations
and patient history.
Nucleic Acid Amplification test (NAAT)performed on the
[employer] platform.
Speech therapy recommendations reviewed.
[2024-02-29] MEDS: DECADRON 6 MG IV ×2 (09:04→15:09)
[2024-02-29] MEDS: APRESOLINE 25 MG PO ×3 (11:41→23:59)
--- NOTE | 2024-02-29 16:30 | PTCARENOTE ---
discussed d/c NIHSS intervention w/ Dr. Montaño. Dr. Montaño stated it was ok to complete NIH intervention, and to just observe for any changes.
[2024-02-29] MEDS: TYLENOL 1000 MG TUBE (17:36)
[2024-02-29] MEDS: NSS 500 IV (17:43)
[2024-02-29] MEDS: D5W 50 IV ×2 (18:07→20:23)
[2024-02-29] MEDS: AMBISOME 212.5 MG IV (18:10)
[2024-03-01] VITALS (11 sets, daily range): BP systolic 111–189; BP diastolic 66–92; BMI 19.7
--- NOTE | 2024-03-01 01:29 | PTCARENOTE ---
Pt becoming more agitated through out the night. Pt in soft restrains and was able to pull loose to get hand close to face. Pt trying to push and kick staff away with care. Emotional support given. Reorientation attempted unsuccessfully. Pt saying '
Im sitting on cold cement, let me get in this rig and drive it'. Pt changed and repositioned. More emotional support given. Short time later Pt appeared to be resting comfortably in bed. Respiration even unlabored, vitals stable at this time.
[2024-03-01 05:02] LABS: % Basophils 0.1 % (0-2); % Immature Granulocytes 2.2 % (0-0.5); % Lymphocytes 5.3 % (20.5-51.1); % Monocytes 3.1 % (1.7-9.3); % Neutrophils 89.3 % (42.2-75.2); Absolute Immature Granulocytes 0.2 10^3/uL (0-0.05); Absolute Lymphocytes 0.5 10^3/uL (1.2-3.4); Absolute Monocytes 0.3 10^3/uL (0.1-0.6); Absolute Neutrophils 9.1 10^3/uL (1.4-6.5); Hematocrit 31.9 % (39.0-52.0); Hemoglobin 11.6 g/dL (13.0-18.0); Mean Corp Hgb Conc. 36.4 g/dL (33.0-37.0); Mean Corpuscular Hgb 33.6 pg (27.0-31.0); Mean Corpuscular Volume 92.5 fL (80.0-94.0); Mean Platelet Volume 9.3 fL (7.4-10.4); Nucleated Red Blood Cells % 0 % (-); Platelet Count 235 10^3/uL (130-400); Red Blood Cell Count 3.45 10^6/uL (4.70-6.10); Red Cell Dist. Width 11.9 % (11.5-14.5); White Blood Cell Count 10.2 10^3/uL (4.8-10.8)
[2024-03-01] MEDS: [UNRECOGNIZED DRUG - OTHER] 1500 MG PO ×3 (05:12→18:08)
[2024-03-01 05:28] LABS: Blood Urea Nitrogen 42 mg/dl (9-20); Calcium 9.5 mg/dl (8.4-10.2); Carbon Dioxide 27 mmol/L (22-30); Chloride 104 mmol/L (98-107); Estimated Creatinine Clearance 65 ml/min; Glucose 122 mg/dl (70-99); Magnesium 1.9 mg/dl (1.6-2.3); Potassium 3.1 mmol/L (3.5-5.1); Sodium 142 mmol/L (135-145); eGFR > 60.00
--- NOTE | 2024-03-01 05:54 | W.PN.UPDATE ---
Update Note
Progress Note Update
Patient with overnight PVC's per nursing. K 3.1, will replete with KCL 40meq IV x1. patient without any symptoms. Monitor BMP
--- NOTE | 2024-03-01 06:19 | PTCARENOTE ---
Pt K 3.1 this AM. Night BUS ATTENDANT made aware, k christos ordered (see mar).
[2024-03-01] MEDS: KCL 270 MEQ IV (06:24)
--- NOTE | 2024-03-01 07:32 | W.PN.HOSP.TC ---
Addendum entered and electronically signed by Jewel Montaño MD 03/01/24 16:33:
In response to CDI query
Hypocalcemia - replaced
Original Note:
Today's Communication/Plan
-
Continue Antifungal therapy
Repeat VSF tomorrow
Monitor HR
Assessment / Plan
Assessment / Plan
IMPRESSION: This is a 78 year old male patient coming to the ER from [facility] with concerns of altered mental status and fever. He was very recently admitted to from 01/17 to 02/12 for Cryptococcal meningitis and CVA (acute ischemic stroke in the
Left cerebral peduncle).
Assessment:
Fever
Altered mental status
Occlusive thrombus in subclavian, axillary and proximal basilic vein
Hx of cryptococcal meningitis
CVA (acute ischemic stroke in the left cerebral peduncle)
Hyperlipidemia
PLAN:
#Relapsed cryptococcal encephalitis/meningitis
-Repeat LP with opening pressure of 9 mmHg.
-ID involved in care and patient has been resumed back on IV amphotericin B
-Continue flucytosine
-Monitor for nephrotoxicity, cr 1.0 today
-Continue IVF boluses (pre- amphotericin B)
-Repeat therapeutic LP if any signs of increased ICP develops
-continue monitoring electrolytes K/mg/ca
-Calcium normal today (was previously hypocalcemic at 7.9, was given IV calcium overnight on 02/27)
-Continue IV dexamethasone as per ID
-Flucytosine levels results in non toxic range 02/16
-Temp normal range
-Blood cultures negative 02/27
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
-Patient had new right upper extreme weakness and right eye lateral gaze palsy
-MRI brain on 02/18 without contrast showing small midbrain stroke
-ST cleared for dysphagia diet.
-neurology evaluated and suspecting-cryptococcus meningitis related vasculopathy
-GIL recommended as well although patient unstable for this. TTE did not show any new findings.
-EEG abnormal but no seizure activity
- Continue Eliquis
- Failure of video fluoro swallow study- placement of Dobbhoff tube on 02/24
-Repeat VSF tomorrow to assess possible Dobbhoff removal
#Febrile State-likely aspiration pneumonia
-Discontinued IV Rocephin on 02/26
#Essential Hypertension
-Elevated Bp readings: SBP 150s/160s
-Discontinue Coreg 12.5mg BID due to pippa
-Cotinue Coreg 6.25mg BID, monitor HR
-Continue Norvasc
-Hydralazine 25mg Q8
#Episodic NSVT
-Asymptomatic, observe
-Monitor electrolytes
#Acute TME likely cryptococcal infection related
-Resolving
-Avoid sedative medication
-Continue supportive care, Dobbhoff tube placement
#Non anion gap metabolic acidosis-likely secondary to diarrhea
-CO decreased to 18, k 2.9, chl 117 in AM
-Sodium bicarb given- 2 doses on 02/27
-Has appropriate bowel movements on tube feeds
#Right UE DVT
- involving rt subclavian,axillary and proximal basillar vein on 02/09
- maintain on Eliquis therapy
#Hypokalemia
-patient continue to be hypokalemic despite 60meq K
-K 3.1 today, replete as needed
-Continue potassium elixir
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
-resolved
#Hyperlipidemia
-Continue atorastatin
#Thyroid nodule
-followed by endocrine but apparently discharged by them--biopsy in 2022 was negative--TSH WNL
DVT prophylaxis
Code status --Full code
Anticipated Discharge: 24 - 48 hours
Subjective/Interval History
-
Date of Service: March 01, 2024
Patient seems more oriented today. Continues to try and remove NGT.
Objective Data
-
Labs:
Laboratory Results
03/01/24
04:43
WBC 10.2
Hgb 11.6 L
Hct 31.9 L
Plt Count 235
Sodium 142
Potassium 3.1 L
Chloride 104
Carbon Dioxide 27
BUN 42 H
Creatinine 0.8
Glucose 122 H
Calcium 9.5
Vital Signs:
Vital Signs
Temp Pulse Resp BP Pulse Ox
97.0 F 57 11 143/86 97
03/01/24 02:30 03/01/24 06:00 03/01/24 06:00 03/01/24 06:00 02/29/24 20:45
I&O
02/29/24 03/01/24 03/02/24
06:59 06:59 06:59
Intake Total 3900 / 3900 1197 / 1197
Output Total 2100 / 2100 750 / 750
Balance 1800 / 1800 447 / 447
Review of Systems
-
All other systems: Reviewed and negative
Physical Exam
-
General: No Apparent Distress
HEENT: Normocephalic
Respiratory: Clear to Auscultation
Cardiac: Regular Rhythm and S1/S2
GI: Soft, Nontender and Nondistended
Musculoskeletal: No Edema
Skin: Warm and Dry
Neuro: Awake, Alert and Oriented (mildly)
[2024-03-01] MEDS: KCL ELIXIR 40 MEQ TUBE ×2 (08:53→20:55)
[2024-03-01] MEDS: APRESOLINE 25 MG PO ×2 (08:54→16:55)
[2024-03-01] MEDS: COREG TUBE ×2 (08:54→21:05)
[2024-03-01] MEDS: LOW STRENGTH ASPIRIN 81 MG TUBE (08:54)
[2024-03-01] MEDS: THERAGRAN 1 TABLET PO (08:54)
[2024-03-01] MEDS: ELIQUIS 5 MG TUBE ×2 (08:55→20:55)
[2024-03-01] MEDS: DECADRON 6 MG IV ×2 (08:55→13:48)
[2024-03-01] MEDS: LIPITOR 20 MG TUBE (08:55)
[2024-03-01] MEDS: NORVASC 10 MG TUBE (08:55)
[2024-03-01] MEDS: PREVACID 30 MG TUBE (08:55)
--- NOTE | 2024-03-01 09:15 | W.PN.UPDATE ---
Update Note
Progress Note Update
I saw and evaluated the patient. I reviewed the resident�s note and agree with findings and plan as documented in the resident�s note.
Patient remains awake but pleasantly disoriented
Speech therapy evaluated and patient passed swallow evaluation.
Will maintain Dobbhoff tube until repeat VSE on Saturday, discussed with spouse and understands it would be ideal to keep Dobbhoff as patient mentation has been waxing waning.
Flucytosine send out test resulted, levels were within normal limit
Currently being maintained on amphotericin B and flucytosine through NG tube
Continuous NS has changed to IVF bolus with ampho B infusion and renal function remains stable.
ID suspecting postinfectious immune reconstitution syndrome, in light of persisting encephalopathy despite improving microbiological marker
Patient with improvement in mentation today with IV dexamethasone 6mg BID therapy.
Blood pressure remains better controlled with addition of hydralazine 25mg Q8H
Patient had episode of NSVT on tele, continue monitoring
Hypokalemia/metabolic acidosis
getting 80meq K oral through NGT, getting extra 40meq today
--- NOTE | 2024-03-01 10:28 | W.PN.ID1 ---
Date of Service
Date of Service: March 01, 2024
Today's Communication
Continue current antibiotics
Assessment / Plan
Assessment -
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
Persistent fevers
- improved
AMS
- intermittent
CSF cultures-day 9 still continues to remain negative.
Plan -
Continue lipo ampho B at 4 mg/kg daily
-Continue daily pretreatment with 500 cc NS bolus, continue IV maintenance fluids. Serum creatinine stable.
-Monitor BMP and magnesium levels, aggressive potassium and magnesium replacement as needed.
-Continue pretreatment with Tylenol for rigors and as needed for rigors.
flucytosine 1500 mg po QID, switched to tubes.
-Clinical pharmacy assisted with obtaining flucytosine levels which were sent out. Will follow-up with results-appreciate clinical pharmacy service.
Prior plan of at least 4 weeks of re-induction and possibly longer pending repeat LP at the end of 4 weeks - therapy was restarted 02/16
On dexamethasone IV 6 mg once a day (d#6) for possibility of PIIRS.
Fevers; improved
Blood cultures x 2 negative, urine analysis unrevealing.
Evidence of pneumonitis on chest x-ray, concern for aspiration pneumonia in the setting of persistent fevers. Could also be secondary to PIIRS.
Dobbhoff in place.
sputum cultures unobtainable as of yet.
Acute Stroke
appreciate neurology input
cryptococcus is associated with stroke occasionally, no modifiable risk factors from ID perspective
����������������������������������������������������������
Chief Complaint
-: Fever and Other (Cryptococcal Meningitis)
Subjective / Review of Systems
Review of Systems: No Fever
Vital Signs / Physical Exam
Vital Signs
Vital Signs
Temp Pulse Resp BP Pulse Ox
97.5 F 64 11 152/66 97
03/01/24 07:56 03/01/24 08:55 03/01/24 06:00 03/01/24 08:55 02/29/24 20:45
Physical Exam
Constitutional: Comfortable and Non-toxic
Head: Normocephalic and Other (Dobbhoff in place.)
Eyes: Sclera Anicteric and Other (Discordant gaze)
Cardiovascular: S1/S2; Negative S3/S4
Pulmonary: Non Labored
Gastrointestinal: Soft, Non Tender and Non Distended
Neurological: Awake; Negative Meningeal Signs
Psychological: Confused
Objective Data
Lab Data
Lab Results
03/01/24 04:43
03/01/24 04:43
PT 19.5 Sec (11.4-14.6) H 02/17/24 10:13
INR 1.67 02/17/24 10:13
APTT 25.1 Sec (23.4-35.0) 02/17/24 10:13
Estimated Creat Clear 65 ml/min 03/01/24 04:43
Lactic Acid Cancelled 02/17/24 14:15
Total Bilirubin 1.3 mg/dl (0.2-1.3) 02/18/24 09:06
AST 26 U/L (17-59) 02/18/24 09:06
ALT 27 U/L (0-50) 02/18/24 09:06
Alkaline Phosphatase 78 U/L (38-126) 02/18/24 09:06
Most recent labs reviewed.
Micro Results:
02/28/24 20:50 Blood Culture - Preliminary
Blood/Venous No Growth in 24 hours- Final report to follow
02/28/24 13:40 Blood Culture - Preliminary
Blood/Venous No Growth in 24 hours- Final report to follow
02/22/24 21:02 Blood Culture - Final
Blood/Venous No Growth - Final Report
02/22/24 19:56 Blood Culture - Final
Blood/Venous No Growth - Final Report
02/17/24 15:27 Fungal Culture - Preliminary
Csf Culture in progress.
Positive cultures are reported as soon as detected.
Final report to follow in four to five weeks.
02/19/24 14:20 Fungal Culture - Preliminary
Csf Culture in progress.
Positive cultures are reported as soon as detected.
Final report to follow in four to five weeks.
02/17/24 10:13 Blood Culture - Final
Blood/Venous No Growth - Final Report
02/17/24 15:27 CSF Culture - Final
Csf No Growth After 5 Days - Final Report
Gram Stain - Final
02/17/24 10:13 Blood Culture - Final
Blood/Venous No Growth - Final Report
02/17/24 15:27 Meningitis/Encephalitis Panel (PCR) - Final
Csf
02/17/24 10:13 Influenza Types A & B (LEO) - Final
Nasal Swab Negative for Influenza A & B, NAAT
Negative results must be combined with clinical observations
and patient history.
Nucleic Acid Amplification test (NAAT)performed on the
[employer] platform.
Speech therapy recommendations reviewed.
Care Review
Plan reviewed with: Physician (Hospitalist)
[2024-03-01] MEDS: NSS 500 IV (16:54)
[2024-03-01] MEDS: TYLENOL 1000 MG TUBE (16:55)
--- NOTE | 2024-03-01 17:44 | PTCARENOTE ---
Pt remains confused with hallucinations today. oriented to person only. continues to make efforts to pull on DHT. B./l restraints remain in place. vital signs stable.
[2024-03-01] MEDS: D5W 50 IV ×2 (18:03→20:55)
[2024-03-01] MEDS: AMBISOME 212.5 MG IV (18:04)
[2024-03-01] MEDS: TYLENOL 650 MG TUBE (20:57)
[2024-03-02] VITALS (15 sets, daily range): BP systolic 115–176; BP diastolic 66–107; PULSE 74–75; BMI 19.4
[2024-03-02] MEDS: [UNRECOGNIZED DRUG - OTHER] 1500 MG PO ×2 (00:25→06:04)
--- NOTE | 2024-03-02 00:44 | W.PN.UPDATE ---
Update Note
Progress Note Update
Notified by nursing about this patient being agitated, shaking bedrails, attempting to climb oob, throw his legs over side rails. Renewed restraints for his safety and concern for self removal of important tubes and lines needed for medication
administration/nutrition. Psychiatry consult placed and will try dose of Risperdal.
[2024-03-02] MEDS: RISPERDAL M-TAB (ORALLY DISINTEGRATING) 0.5 MG PO ×2 (00:57→21:38)
[2024-03-02] MEDS: APRESOLINE 25 MG PO ×3 (01:02→16:12)
--- NOTE | 2024-03-02 03:18 | PTCARENOTE ---
Through out night Pt becoming more agitated, shaking bedrails, attempting to climb oob, throw his legs over side rails ans sliding down to bottom of bed. When attempting to reorient Pt he was trying to kick nurses and techs, unable to reorient.
Emotional support given. pt appears to be hallucinating about 'little dog in room' and saying 'look up there'. Wiliam HEMMING AND TACKING MACHINE OPERATOR made aware, orders placed to renew restraints and one time dose Risperdal ordered. Pt changed and cleaned, placed in safe position
with medsitter in room. On reassessment Pt appears to be calming. pt no longer pulling on restraints. Pt appears to be sleeping comfortably in bed respirations even unlabored vitals stable at this time.
[2024-03-02] MEDS: APRESOLINE 10 MG IV (04:53)
[2024-03-02 05:08] LABS: Blood Urea Nitrogen 42 mg/dl (9-20); Calcium 9.9 mg/dl (8.4-10.2); Carbon Dioxide 26 mmol/L (22-30); Chloride 103 mmol/L (98-107); Estimated Creatinine Clearance 59 ml/min; Glucose 140 mg/dl (70-99); Hematocrit 33.5 % (39.0-52.0); Hemoglobin 12.2 g/dL (13.0-18.0); Mean Corp Hgb Conc. 36.4 g/dL (33.0-37.0); Mean Corpuscular Hgb 32.4 pg (27.0-31.0); Mean Corpuscular Volume 89.1 fL (80.0-94.0); Mean Platelet Volume 9.3 fL (7.4-10.4); Platelet Count 266 10^3/uL (130-400); Potassium 3.5 mmol/L (3.5-5.1); Red Blood Cell Count 3.76 10^6/uL (4.70-6.10); Red Cell Dist. Width 11.9 % (11.5-14.5); Sodium 141 mmol/L (135-145); eGFR > 60.00
--- NOTE | 2024-03-02 07:27 | W.PN.HOSP.TC ---
Addendum entered and electronically signed by Connor Funez MD 03/02/24 18:17:
I personally performed a history and physical exam of the patient and discussed management with the resident. I reviewed the resident's note and agree with the documented findings and plan of care HPI/CC except for changes in documentation
78-year-old admitted from [facility] with mental status change and fever. He was admitted to [facility] from 01/18/2024 till 02/13/2024 for cryptococcal meningitis and CVA. Patient presented with acute ischemic stroke in the left cerebral
Niranjan. He completed course of IV amphotericin B and was switched to oral fluconazole and transferred to [facility]. Had more fever and confusion and was transferred back to the hospital.
MRI of the brain 2823-9 mm subacute nonhemorrhagic infarct in the posterior medial aspect of the midbrain. Diffuse cortical and cerebellar atrophy with mild nonspecific white matter changes. More focal area of increased signal around FLAIR in
the white matter of the posterior left temporal lobe
Echo 02/21/2024-normal LV size, wall thickness and systolic function. Ejection fraction 55 to 60%. Stage I diastolic dysfunction. Thickened mitral valve leaflets, mild annular calcification, mitral valve opens normally, trace MR, moderate AAS,
mild AI
CVS: S1-S2 normal
Chest: CTA B/L
Abdomen: Soft, NT / Bowel sounds present
Extremities: No edema, normal pulses
BULK LOADER: confused, medial rectus palsy right eye
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
Fevers improved
CSF cultures negative
Continue amphotericin B, flucytosine stopped
Diflucan started
Also on dexamethasone
Monitor and replace electrolytes as needed
# TME-intermittent confusion-psychiatry consulted
Never completely resolved since first Meningitis diagnosis ( per )
EEG neg for SZ
# Aspiration pneumonitis
# Hypokalemia-replace as needed
# Hypertension-continue Norvasc 10 Mg, Coreg 6.25 mg twice daily, hydralazine 25 Mg every 8 hours
# Acute stroke-continue aspirin, Eliquis, statin
# Moderate Aortic stenosis
# Hyperlipidemia-continue statin
# Right subclavian vein thrombosis-continue Eliquis
# History of SIADH
# Hypoalbuminemia
# Ex-smoker
# DVT prophylaxis-Eliquis
# Full code
D/W at bed side
D/W Neuro
D/W ID
Time spent over 50 min
Original Note:
Today's Communication/Plan
-
Continue antifungal therapy/IV steroids
Assessment / Plan
Assessment / Plan
IMPRESSION: This is a 78 year old male patient coming to the ER from [facility] with concerns of altered mental status and fever. He was very recently admitted to from 01/17 to 02/12 for Cryptococcal meningitis and CVA (acute ischemic stroke in the
Left cerebral peduncle).
Assessment:
Fever
Altered mental status
Occlusive thrombus in subclavian, axillary and proximal basilic vein
Hx of cryptococcal meningitis
CVA (acute ischemic stroke in the left cerebral peduncle)
Hyperlipidemia
PLAN:
#Relapsed cryptococcal encephalitis/meningitis
-Repeat LP with opening pressure of 9 mmHg.
-ID involved in care
-Monitor for nephrotoxicity, cr 1.0 today
-Repeat therapeutic LP if any signs of increased ICP develops
-continue monitoring electrolytes K/mg/ca
-Continue IV dexamethasone taper as per ID
-Flucytosine levels results in non toxic range 02/16
-Temp normal range
-Blood cultures negative 02/27
-Discontinued ampoB/flucytosine due to clinical improvement
-ID initiated fluconazole due to presumed PIIRS
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
-Patient had new right upper extreme weakness and right eye lateral gaze palsy
-MRI brain on 02/18 without contrast showing small midbrain stroke
-ST cleared for dysphagia diet.
-neurology evaluated and suspecting-cryptococcus meningitis related vasculopathy
-GIL recommended as well although patient unstable for this. TTE did not show any new findings.
- Continue Eliquis
- Failure of video fluoro swallow study- placement of Dobbhoff tube on 02/24
-Repeat VSF: change to puree diet with mod thick fluids
-Repeat EEG due to increased agitated behavior today showed no seizure activity
#Delirium/Agitated State
-pt was physically aggressive with visual hallucinations overnight
-given risperidone early AM 03/02, improved
-psych consult, appreciated
-Continue Risperidone prn
#Febrile State-likely aspiration pneumonia
-Discontinued IV Rocephin on 02/26
#Essential Hypertension
-Elevated Bp readings: SBP 150s/160s previously
-Discontinue Coreg 12.5mg BID due to pippa
-Cotinue Coreg 6.25mg BID, monitor HR
-Continue Norvasc
-Hydralazine 25mg Q8
#Episodic NSVT
-Asymptomatic, observe
-Monitor electrolytes
#Non anion gap metabolic acidosis-likely secondary to diarrhea
-CO decreased to 18, k 2.9, chl 117 in AM
-Sodium bicarb given- 2 doses on 02/27
-Has appropriate bowel movements on tube feeds
#Right UE DVT
- involving rt subclavian,axillary and proximal basillar vein on 02/09
- maintain on Eliquis therapy
#Hypokalemia
-patient continue to be hypokalemic despite 60meq K
-K 3.5 today, replete as needed
-Continue potassium elixir
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
-resolved
#Hyperlipidemia
-Continue atorastatin
#Thyroid nodule
-followed by endocrine but apparently discharged by them--biopsy in 2022 was negative--TSH WNL
DVT prophylaxis
Code status --Full code
Anticipated Discharge: 24 - 48 hours
Subjective/Interval History
-
Date of Service: March 02, 2024
Patient was agitated overnight with visual hallucinations and attempting to climb out of bed and remove NGT. He is more calm today morning.
Objective Data
-
Labs:
Laboratory Results
03/02/24
04:27
WBC 12.0 H
Hgb 12.2 L
Hct 33.5 L
Plt Count 266
Sodium 141
Potassium 3.5
Chloride 103
Carbon Dioxide 26
BUN 42 H
Creatinine 0.9
Glucose 140 H
Calcium 9.9
Vital Signs:
Vital Signs
Temp Pulse Resp BP Pulse Ox
97.8 F 52 12 115/66 97
03/02/24 05:04 03/02/24 06:04 03/02/24 06:04 03/02/24 06:04 03/01/24 22:20
I&O
03/01/24 03/02/24 03/03/24
06:59 06:59 06:59
Intake Total 1197 / 1197 1212 / 1212
Output Total 750 / 750 2675 / 2675
Balance 447 / 447 -1463 / -1463
Review of Systems
-
All other systems: Reviewed and negative
Physical Exam
-
General: No Apparent Distress
HEENT: Normocephalic
Respiratory: Clear to Auscultation
Cardiac: Regular Rhythm and S1/S2
GI: Soft, Nontender and Nondistended
Musculoskeletal: No Edema
Skin: Warm and Dry
Neuro: Awake, Alert and Oriented (mildly)
[2024-03-02] MEDS: LOW STRENGTH ASPIRIN 81 MG TUBE (08:12)
[2024-03-02] MEDS: KCL ELIXIR 40 MEQ TUBE (08:12)
[2024-03-02] MEDS: ELIQUIS 5 MG TUBE ×2 (08:13→20:41)
[2024-03-02] MEDS: THERAGRAN 1 TABLET PO (08:13)
[2024-03-02] MEDS: LIPITOR 20 MG TUBE (08:13)
[2024-03-02] MEDS: NORVASC 10 MG TUBE (08:13)
[2024-03-02] MEDS: COREG TUBE (08:13)
--- NOTE | 2024-03-02 09:11 | W.PN.ID1 ---
Addendum entered and electronically signed by Naa John MD 03/02/24 11:58:
passed swallow eval, switched fluconazole to oral
Original Note:
Date of Service
Date of Service: March 02, 2024
Today's Communication
clinically improving
switched to high dose fluconazole, stopped ampho/flucytosine and related meds
dose adjusted amlodipine and atorvastatin for fluconazole
follow qtc
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
Assessment / Plan
Assessment -
PIIRS 'Post Infectious Inflammatory Response Syndrome'
Would expect CSF culture to be positive by 7 days at the latest if this was relapse, now with negative cultures at 2 weeks
Cryptococcal Meningitis
AMS - intermittent
Plan -
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
Has now completed 4 weeks total of induction with repeat CSF cultures 02/16 negative at two weeks
Rechecked QTc acceptbale at 430
Restart fluconazole however at 800 mg; stop ampho/flucytosine
decreased dose of atorvastatin to 10 mg po qday while on fluconazole
decreased amlodipine to 5 mg po qday while on fluconazole
Reassess QTc in the AM
attribute leukocytosis to steroids
On dexamethasone IV 6 mg BID - taper weekly
today 03/02 dex 10 mg qday
03/10 dex 8 mg
03/17 dex 6 mg Qday
03/24 dex 4 mg Qday
03/31 dex 2 mg Qday
04/07 dex 1 mg Qday
04/14 Stop
# Fevers; resolved
02/27 Blood cultures x 2 negative, urine analysis unrevealing.
Completed a recent course of ceftriaxone, not producing sputum
Dobbhoff in place.
# Acute Stroke
appreciate neurology input
cryptococcus is associated with stroke occasionally, no modifiable risk factors from ID perspective
����������������������������������������������������������
Chief Complaint
-: Fever and Other (Cryptococcal Meningitis)
Subjective / Review of Systems
afebrile and not hypothermic
more alert overnight but hallucinating - had a dose of risperadol overnight 0.5 mg
reassess qtc
was able to stand longer with PT over the weekend with less assistance
swallowing seems to be improving
waxing and waning delirium/hallucinats, today alert, volunteers that he recognizes me (Jessie seen him for about 1 month), makes relevant comments about images on the tv
Vital Signs / Physical Exam
Vital Signs
Vital Signs
Temp Pulse Resp BP Pulse Ox
97.4 F 64 12 130/95 97
03/02/24 07:44 03/02/24 08:13 03/02/24 06:04 03/02/24 08:13 03/01/24 22:20
Physical Exam
Constitutional: No Acute Distress, Chronically Ill and Other (chronically ill)
Cardiovascular: Regular Rate and S1/S2; Negative Murmur or Rub
Pulmonary: Clear and Symmetric; Negative Wheezes or Rales
Gastrointestinal: Soft, Non Tender, Non Distended and Normal Bowel Sounds
Skin: Warm and Dry; Negative Rash or Jaundice
Neurological: Awake, Alert and Other (disconjugate gaze ongoing, supple neck, no photo phobia)
Psychological: Calm
Lines: Other (mits, ngt)
Objective Data
Lab Data
Lab Results
03/02/24 04:27
03/02/24 04:27
PT 19.5 Sec (11.4-14.6) H 02/17/24 10:13
INR 1.67 02/17/24 10:13
APTT 25.1 Sec (23.4-35.0) 02/17/24 10:13
Estimated Creat Clear 59 ml/min 03/02/24 04:27
Lactic Acid Cancelled 02/17/24 14:15
Total Bilirubin 1.3 mg/dl (0.2-1.3) 02/18/24 09:06
AST 26 U/L (17-59) 02/18/24 09:06
ALT 27 U/L (0-50) 02/18/24 09:06
Alkaline Phosphatase 78 U/L (38-126) 02/18/24 09:06
Most recent labs reviewed.
Micro Results:
02/28/24 20:50 Blood Culture - Preliminary
Blood/Venous No Growth in 48 hours- Final report to follow
02/28/24 13:40 Blood Culture - Preliminary
Blood/Venous No Growth in 48 hours- Final report to follow
02/22/24 21:02 Blood Culture - Final
Blood/Venous No Growth - Final Report
02/22/24 19:56 Blood Culture - Final
Blood/Venous No Growth - Final Report
02/17/24 15:27 Fungal Culture - Preliminary
Csf Culture in progress.
Positive cultures are reported as soon as detected.
Final report to follow in four to five weeks.
02/19/24 14:20 Fungal Culture - Preliminary
Csf Culture in progress.
Positive cultures are reported as soon as detected.
Final report to follow in four to five weeks.
02/17/24 10:13 Blood Culture - Final
Blood/Venous No Growth - Final Report
02/17/24 15:27 CSF Culture - Final
Csf No Growth After 5 Days - Final Report
Gram Stain - Final
02/17/24 10:13 Blood Culture - Final
Blood/Venous No Growth - Final Report
02/17/24 15:27 Meningitis/Encephalitis Panel (PCR) - Final
Csf
02/17/24 10:13 Influenza Types A & B (LEO) - Final
Nasal Swab Negative for Influenza A & B, NAAT
Negative results must be combined with clinical observations
and patient history.
Nucleic Acid Amplification test (NAAT)performed on the
[employer] platform.
Speech therapy recommendations reviewed.
Care Review
Plan reviewed with: Nurse (crystal - rebecca meds, ekg etc), Physician (Dr Armin Woodard - med adjustments tiger text) and Other Provider (clinical pharm - tim and anne)
[2024-03-02] MEDS: DECADRON 6 MG IV (09:54)
[2024-03-02] MEDS: PREVACID 30 MG TUBE (09:54)
--- NOTE | 2024-03-02 11:23 | PTOTSP ---
Addendum entered and electronically signed by ST Des 03/02/24 11:28:
6. Full supervision/assistance
Original Note:
Video Swallow Study
Summary: Patient presents with mild oral and moderate pharyngeal dysphagia with absent epiglottic inversion and reduced airway closure resulting in trace transient aspiration without a cough with thin and mildly thick liquids. Aspiration risk
elevated. Pharyngeal residue reduced compared to last study. See patient care note for details.
Recommendations:
1. IDDSI Level 4 Puree, IDDSI Level 3 Moderately Thick
2. Medications via puree
3. Aspiration Risk Hydration Protocol - small single supervised sips of thin water - only if awake/alert, after oral care, without food/medications
4. Oral care 3x daily
5. Dysphagia therapy at the acute care level. Dysphagia tx warranted after D/C from acute care at this time.
--- NOTE | 2024-03-02 12:34 | CS.PSYCHR ---
Consult Summary - Psychiatry
-
Pt is 78 yo male admitted to 01/18/24, presented with ambulatory dysfunction and weakness; was diagnosed with cryptococcal meningitis. Extended hospital course complicated by Rt subclavian DVT, L cerebral peduncle infarct 02/03 and posterior
midbrain infarct found on 02/19. Pt has had persistent encephalopathy/ confused state. Psychiatry asked to see after pt had an episode of agitation overnight. Pt noted trying to get OOB, kicking legs over the rail, trying to kick staff, having
visual hallucinations. Pt was given Risperidone 0.5 mg which apparently helped. This morning pt seen with present. Pt awake, resting calmly, eyes open, not speaking, with no apparent side effects from Risperidone dose overnight.
reports last night was the first incidence of agitation during pt's 5- week hospital stay. She states pt will call her over by name and then make a statement or question that is irrelevant/confused, with mental state fluctuating day-to-day.
Psych Hx: none noted
MSE: awake, eyes open looking toward TV, not speaking. Resting in bed, calm at present with hand mitts in place. No EPS evident. No agitation this morning. No overt signs of psychosis
Imp: Encephalopathy with an episode of hallucinations and agitation, possible related to IV steroid. Pt calmed with single dose of po Risperidone M-tab
Rec: Risperidone 0.5 on prn basis, for any further agitation
Psychiatry will follow peripherally
[2024-03-02] MEDS: DIFLUCAN 800 MG PO (12:55)
[2024-03-02] MEDS: DECADRON 4 MG IV (12:55)
--- NOTE | 2024-03-02 12:58 | EEG.RPT ---
Electroencephalogram Report
Recording
Date of EE03/02/24
Type of EEG: Routine
Length of EEG recordin minutes
Done with Video Recording: Yes
Patient Status: Inpatient
Recording Conditions: Awake and Drowsy
Hyperventilation Performed: No
Photic Stimulation Performed: Yes
Report
LESS THAN 1 HOUR EEG INTERPRETATION:
Moderately abnormal EEG for age in wakefulness through drowsiness due to triphasic waves and diffuse bihemispheric slowing
CLINICAL CORRELATION:
This study was suggestive of a generalizing process which is most likely secondary to metabolic disturbance causing diffuse cortical dysfunction without focal abnormality. No seizures were recorded.
In comparison with the most recent EEG study, there was mild improvement with less triphasic waves and lower amplitude of same.
Clinical correlation is advised.
METHODS:
A 21 channel digitized electroencephalogram (EEG) was performed in the clinical neurophysiology lab. The 10/20 international system of electrode placement was used with ECG and lateral/vertical eye movements recorded. Video was recorded. The
T[employer] quantitative review system was utilized.
QUALITY OF STUDY:
Fair
ELECTROENCEPHALOGRAPHER IMPRESSION(S):
Background
Amplitude: Unremarkable
Anterior-Posterior Organization: Fair
Maximum: Theta, usually delta
Asymmetry: None
Sleep: Drowsiness present
Photic Stimulation: Activated the record at some intermediate flash frequencies.
ECG: Normal sinus rhythm
Abnormal EEG activity: Intermittent variable bifrontally predominant, intermittently generalizing, medium amplitude triphasic waves lasting up to 1 second each
[2024-03-02] MEDS: COREG 6.25 MG TUBE (20:45)
--- NOTE | 2024-03-02 21:57 | PTCARENOTE ---
Addendum entered by Mariaelena Ramirez RN 03/03/24 06:16:
Thought out the rest of the night Pt remained calm in bed no attempts to get up. Pt easily aroused to verbal commands.
Addendum entered by Mariaelena Ramirez RN 03/03/24 01:16:
Reassessment, Pt appears to be sleeping comfortably. Respirations even unlabored. No recent attempts to get up.
Original Note:
Pt appearing calm watching TV at shift change med sitter in room. Around 2099 Pt became more restless. Pt needs assessed, Pt cleaned up repositioned and given emotional support. Pt continued multiple times to try and get out of bed with agitation
when being redirected. Reassurance and emotional support given with PRN medication. Med sitter in room call andrews within reach bed alarm on.
[2024-03-02] MEDS: APRESOLINE PO (23:35)
[2024-03-03] VITALS (17 sets, daily range): BP systolic 125–174; BP diastolic 63–110; PULSE 65–66; BMI 19.0
[2024-03-03] MEDS: APRESOLINE 25 MG PO ×3 (00:58→16:48)
--- NOTE | 2024-03-03 07:25 | W.PN.HOSP.TC ---
Addendum entered and electronically signed by Connor Funez MD 03/03/24 15:22:
I personally performed a history and physical exam of the patient and discussed management with the resident. I reviewed the resident's note and agree with the documented findings and plan of care HPI/CC except for changes in documentation
78-year-old admitted from [facility] with mental status change and fever. He was admitted to [facility] from 01/18/2024 till 02/13/2024 for cryptococcal meningitis and CVA. Patient presented with acute ischemic stroke in the left cerebral
peduncle. He completed course of IV amphotericin B and was switched to oral fluconazole and transferred to [facility]. Had more fever and confusion and was transferred back to the hospital.
MRI of the brain -9 mm subacute nonhemorrhagic infarct in the posterior medial aspect of the midbrain. Diffuse cortical and cerebellar atrophy with mild nonspecific white matter changes. More focal area of increased signal around FLAIR in the
white matter of the posterior left temporal lobe
Echo 02/21/2024-normal LV size, wall thickness and systolic function. Ejection fraction 55 to 60%. Stage I diastolic dysfunction. Thickened mitral valve leaflets, mild annular calcification, mitral valve opens normally, trace MR, moderate AAS,
mild AI
CVS: S1-S2 normal
Chest: CTA B/L
Abdomen: Soft, NT / Bowel sounds present
Extremities: No edema, normal pulses
PUBLIC AID ELIGIBILITY ASSISTANT: confused, medial rectus palsy right eye
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
Fevers improved
CSF cultures negative
amphotericin B and flucytosine stopped
Diflucan started
Also on dexamethasone
# TME-intermittent confusion-psychiatry consulted
Never completely resolved since first Meningitis diagnosis ( per )
EEG neg for SZ
# Aspiration pneumonitis
# Hypokalemia-replace as needed
# Hypertension-continue Norvasc 10 Mg, Coreg 6.25 mg twice daily, hydralazine 25 Mg every 8 hours
# Acute stroke-continue aspirin, Eliquis, statin
# Moderate Aortic stenosis
# Hyperlipidemia-continue statin
# Right subclavian vein thrombosis-continue Eliquis
# History of SIADH
# Hypoalbuminemia
# Ex-smoker
# DVT prophylaxis-Eliquis
# Full code
D/W at bed side
OK for rehab
D/W Case management
D/W ID
Original Note:
Today's Communication/Plan
-
Continue antifungal and steroid therapy
Dispo to [facility] pending availability
Assessment / Plan
Assessment / Plan
IMPRESSION: This is a 78 year old male patient [facility] with concerns of altered mental status and fever. He was very recently admitted to from 01/17 to 02/12 for Cryptococcal meningitis and CVA (acute ischemic stroke in the
Left cerebral peduncle).
Assessment:
Fever
Altered mental status
Occlusive thrombus in subclavian, axillary and proximal basilic vein
Hx of cryptococcal meningitis
CVA (acute ischemic stroke in the left cerebral peduncle)
Hyperlipidemia
PLAN:
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
-Repeat LP with opening pressure of 9 mmHg.
-ID involved in care
-Monitor for nephrotoxicity, cr 1.0 today
-Repeat therapeutic LP if any signs of increased ICP develops
-continue monitoring electrolytes K/mg/ca
-Continue IV dexamethasone taper as per ID
-Flucytosine levels results in non toxic range 02/16
-Temp normal range
-Blood cultures negative 02/27
-Discontinued ampoB/flucytosine due to clinical improvement
-Continue fluconazole due to presumed PIIRS as per ID
-Possible dispo to [facility] pending availibility
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
-Patient had new right upper extreme weakness and right eye lateral gaze palsy
-MRI brain on 02/18 without contrast showing small midbrain stroke
-ST cleared for dysphagia diet.
-neurology evaluated and suspecting-cryptococcus meningitis related vasculopathy
-GIL recommended as well although patient unstable for this. TTE did not show any new findings.
- Continue Eliquis
- Failure of video fluoro swallow study- placement of Dobbhoff tube on 02/24
-Repeat VSF: puree diet with mod thick fluids
-Repeat EEG due to increased agitated behavior 03/02 showed no seizure activity
#Delirium/Agitated State
-given risperidone early AM for agitation 03/02, improved
-psych consult, appreciated
-Continue Risperidone qd
#Febrile State-likely aspiration pneumonia
-Discontinued IV Rocephin on 02/26
#Essential Hypertension
-Elevated Bp readings: SBP 150s/160s previously
-Discontinue Coreg 12.5mg BID due to pippa
-Cotinue Coreg 6.25mg BID, monitor HR
-Continue Norvasc
-Hydralazine 25mg Q8
#Episodic NSVT
-Asymptomatic, observe
-Monitor electrolytes
#Non anion gap metabolic acidosis-likely secondary to diarrhea
-CO decreased to 18, k 2.9, chl 117 in AM
-Sodium bicarb given- 2 doses on 02/27
-Resolved
#Right UE DVT
- involving rt subclavian,axillary and proximal basillar vein on 02/09
- maintain on Eliquis therapy
#Hypokalemia
-patient continue to be hypokalemic despite 60meq K
-K replete as needed
-Continue potassium elixir
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
-resolved
#Hyperlipidemia
-Continue atorastatin
#Thyroid nodule
-followed by endocrine but apparently discharged by them--biopsy in 2022 was negative--TSH WNL
DVT prophylaxis
Code status --Full code
Anticipated Discharge: 24 - 48 hours
Subjective/Interval History
-
Date of Service: March 03, 2024
Patient is calm at the time of examination. He appropriately answered some questions but was confused during other parts of conversation. Overnight, he was agitated and tried to climb out of bed.
Objective Data
-
Labs:
Laboratory Results
03/03/24
07:24
WBC Pending
Hgb Pending
Hct Pending
Plt Count Pending
Sodium Pending
Potassium Pending
Chloride Pending
Carbon Dioxide Pending
BUN Pending
Creatinine Pending
Glucose Pending
Calcium Pending
Vital Signs:
Vital Signs
Temp Pulse Resp BP Pulse Ox
97.1 F 60 12 159/68 98
03/03/24 03:38 03/03/24 06:00 03/03/24 06:00 03/03/24 06:00 03/02/24 20:56
I&O
03/02/24 03/03/24 03/04/24
06:59 06:59 06:59
Intake Total 1212 / 1212 120 / 120
Output Total 2675 / 2675 1650 / 1650
Balance -1463 / -1463 -1530 / -1530
Review of Systems
-
All other systems: Reviewed and negative
Physical Exam
-
General: No Apparent Distress
HEENT: Normocephalic
Respiratory: Clear to Auscultation
Cardiac: Regular Rhythm and S1/S2
GI: Soft, Nontender and Nondistended
Musculoskeletal: No Cyanosis and No Edema
Skin: Warm and Dry
Neuro: Awake, Alert and Oriented (somewhat oriented)
Psych: Calm
[2024-03-03] MEDS: DIFLUCAN 800 MG PO (08:57)
[2024-03-03] MEDS: ELIQUIS 5 MG PO ×2 (08:57→19:37)
[2024-03-03] MEDS: LIPITOR 10 MG PO (08:58)
[2024-03-03] MEDS: THERAGRAN 1 TABLET PO (08:58)
[2024-03-03] MEDS: COREG 6.25 MG PO ×2 (08:58→19:37)
[2024-03-03] MEDS: NORVASC 5 MG PO (08:58)
[2024-03-03] MEDS: LOW STRENGTH ASPIRIN 81 MG PO (08:59)
[2024-03-03] MEDS: PREVACID 30 MG PO (08:59)
[2024-03-03] MEDS: DECADRON 10 MG IV (08:59)
[2024-03-03 09:51] LABS: % Basophils 0.3 % (0-2); % Immature Granulocytes 3.5 % (0-0.5); % Lymphocytes 5.3 % (20.5-51.1); % Monocytes 2.6 % (1.7-9.3); % Neutrophils 88.3 % (42.2-75.2); Absolute Immature Granulocytes 0.5 10^3/uL (0-0.05); Absolute Lymphocytes 0.8 10^3/uL (1.2-3.4); Absolute Monocytes 0.4 10^3/uL (0.1-0.6); Absolute Neutrophils 12.7 10^3/uL (1.4-6.5); Hematocrit 36.4 % (39.0-52.0); Hemoglobin 13.2 g/dL (13.0-18.0); Mean Corp Hgb Conc. 36.3 g/dL (33.0-37.0); Mean Corpuscular Hgb 33.8 pg (27.0-31.0); Mean Corpuscular Volume 93.3 fL (80.0-94.0); Mean Platelet Volume 9.2 fL (7.4-10.4); Nucleated Red Blood Cells % 0 % (-); Platelet Count 281 10^3/uL (130-400); Red Cell Dist. Width 12.2 % (11.5-14.5); White Blood Cell Count 14.4 10^3/uL (4.8-10.8)
--- NOTE | 2024-03-03 10:02 | CM ---
Addendum entered by Maya Donaldson RN 03/03/24 16:05:
Per nurse Evelin; patient taken off Medsitter today.
Message from [facility]; they are able to accept and will check tomorrow if they have an available bed.
Addendum entered by Maya Donaldson RN 03/03/24 12:50:
Spoke with [facility]; she needs to speak with Dr Newell about the patient returning. If they accept, they have no available bed today, and the patient would need to be off the Medsitter for 24 hours.
Met with patient and ; provided update that MDs indicated that the patient is medically ready for d/c to rehab. Patient said hello but did not appear to follow the conversation. aware [facility] is reviewing, and CM will let know once [facility]
decides.
Original Note:
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 Room air. Receiving IV Decadron with taper.
Psych Consult due to episode hallucinations & agitation - started on Risperdal. EEG and VSE yesterday. Dysphagia diet. PT & OT 107; assist of 2, recommend acute rehab. Medsitter. Per nursing; confused, forgetful.
Phone call to [facility]; left message with clinical update with request for re-eval for [facility].
Plan follow up with [facility] re; acceptance.
[2024-03-03 11:12] LABS: Blood Urea Nitrogen 67 mg/dl (9-20); Calcium 10.2 mg/dl (8.4-10.2); Carbon Dioxide 27 mmol/L (22-30); Chloride 103 mmol/L (98-107); Estimated Creatinine Clearance 47 ml/min; Glucose 104 mg/dl (70-99); Potassium 3.9 mmol/L (3.5-5.1); Sodium 143 mmol/L (135-145); eGFR > 60.00
--- NOTE | 2024-03-03 12:52 | PTCARENOTE ---
Assumed care of patient at beginning of this shift from previous RN. Patient ate breakfast and took morning meds crushed in pudding without difficulty. Worked with PT/OT, ambulating in connor. Currently sitting in chair with at bedside. See
worklist for full assessment and vital signs; see MAR for med administration.
--- NOTE | 2024-03-03 13:21 | W.PN.ID1 ---
Addendum entered and electronically signed by Naa John MD 03/03/24 16:42:
I saw and evaluated the patient. I reviewed the resident�s note and agree with findings and plan as documented in the resident�s note.
Delirium is waxing and waning and likely multifactorial (PIIRS itself, high dose steroids, strokes etc)
plan as documented in the residents note
stable for dc, follow up in ID clinic in about 4 weeks
AW
Original Note:
Date of Service
Date of Service: March 03, 2024
Today's Communication
Continue dexamethasone.
Continue fluconazole.
Assessment / Plan
Assessment -
Subjective-patient is not oriented, denies having any complaints.
Objective -leukocytosis-WBC count-12.0 on 03/02 and 14.4 on 03/03.
Jfkxclisl-YBHJT-wjjwlvsveqpgfy inflammatory response syndrome. CSF cultures were negative x 2 weeks.
Cryptococcal meningitis.
Plan -
PIIRS
due to Crypto Meningitis
Patient has finished 4 weeks of induction therapy with amphotericin B and flucytosine. His repeat CSF cultures obtained on 02/16 remain negative for 2 weeks as of 03/02/2024.
Patient is started on high-dose of fluconazole for consolidation therapy-800 mg fluconazole OD-day 2.
QTc interval in the a.m. today at 416 ms.
Reduce the dose of atorvastatin to 10 mg/day when on fluconazole. Can resume his home dose once he finishes his consolidation therapy.
Amlodipine dose reduced to 5 mg once a day.
Elevated leukocytosis secondary to high-dose of IV steroids.
On dexamethasone IV 6 mg BID - taper weekly (copied from Dr. John's notes).
today 10 dex 10 mg qday
03/10 dex 8 mg
03/17 dex 6 mg Qday
03/24 dex 4 mg Qday
03/31 dex 2 mg Qday
04/07 dex 1 mg Qday
04/14 Stop
Fevers and hypothermia resolved
Blood cultures obtained on 02/27-negative
Urine analysis-negative
Concern for aspiration was noticed on videofluoroscopic swallow study, patient was on Dobbhoff tube. Remove Dobbhoff tube in the a.m. today.
Concern for aspiration pneumonia and patient completed a recent course of ceftriaxone for 5 days.
Acute Stroke
cryptococcus is associated with stroke occasionally, no modifiable risk factors from ID perspective
Neurology following, EEG showed diffuse cortical slowing
����������������������������������������������������������
Chief Complaint
-: Fever and Other (Cryptococcal Meningitis)
Subjective / Review of Systems
Review of Systems: No Fever, No Chills, No Headache, No Stiff Neck, No Cough, No Sputum Production, No Chest Pain, No Palpitations and No Abdominal Pain
Vital Signs / Physical Exam
Vital Signs
Vital Signs
Temp Pulse Resp BP Pulse Ox
97.4 F 65 15 157/99 98
03/03/24 11:21 03/03/24 12:00 03/03/24 12:00 03/03/24 12:00 03/03/24 08:29
Physical Exam
Constitutional: Comfortable
Eyes: Negative Pupils Equal
Cardiovascular: Regular Rate and S1/S2; Negative Murmur, Rub or Gallop
Pulmonary: Clear; Negative Wheezes, Rales or Rhonchi
Gastrointestinal: Soft, Non Tender, Non Distended and Normal Bowel Sounds
Skin: Warm
Neurological: Awake and Alert
Psychological: Calm
Objective Data
Lab Data
Lab Results
03/03/24 09:27
03/03/24 09:27
PT 19.5 Sec (11.4-14.6) H 02/17/24 10:13
INR 1.67 02/17/24 10:13
APTT 25.1 Sec (23.4-35.0) 02/17/24 10:13
Estimated Creat Clear 47 ml/min 03/03/24 09:27
Lactic Acid Cancelled 02/17/24 14:15
Total Bilirubin 1.3 mg/dl (0.2-1.3) 02/18/24 09:06
AST 26 U/L (17-59) 02/18/24 09:06
ALT 27 U/L (0-50) 02/18/24 09:06
Alkaline Phosphatase 78 U/L (38-126) 02/18/24 09:06
Most recent labs reviewed.
CT Scan: Image Reviewed and Report Reviewed
MRI: Image Reviewed and Report Reviewed
Micro Results:
02/28/24 20:50 Blood Culture - Preliminary
Blood/Venous No Growth in 72 hours- Final report to follow
02/28/24 13:40 Blood Culture - Preliminary
Blood/Venous No Growth in 72 hours- Final report to follow
02/19/24 14:20 Fungal Culture - Preliminary
Csf Culture in progress.
Positive cultures are reported as soon as detected.
Final report to follow in four to five weeks.
02/17/24 15:27 Fungal Culture - Preliminary
Csf Culture in progress.
Positive cultures are reported as soon as detected.
Final report to follow in four to five weeks.
02/22/24 21:02 Blood Culture - Final
Blood/Venous No Growth - Final Report
02/22/24 19:56 Blood Culture - Final
Blood/Venous No Growth - Final Report
02/17/24 10:13 Blood Culture - Final
Blood/Venous No Growth - Final Report
02/17/24 15:27 CSF Culture - Final
Csf No Growth After 5 Days - Final Report
Gram Stain - Final
02/17/24 10:13 Blood Culture - Final
Blood/Venous No Growth - Final Report
02/17/24 15:27 Meningitis/Encephalitis Panel (PCR) - Final
Csf
02/17/24 10:13 Influenza Types A & B (LEO) - Final
Nasal Swab Negative for Influenza A & B, NAAT
Negative results must be combined with clinical observations
and patient history.
Nucleic Acid Amplification test (NAAT)performed on the
[employer] platform.
Speech therapy recommendations reviewed.
Abnormal EEG - diffuse cortical slowing.
[2024-03-03] MEDS: RISPERDAL 0.5 MG PO (18:18)
[2024-03-04] VITALS (15 sets, daily range): BP systolic 114–153; BP diastolic 62–87; PULSE 67–71
[2024-03-04] MEDS: APRESOLINE 25 MG PO ×4 (00:05→23:16)
[2024-03-04] MEDS: RISPERDAL M-TAB (ORALLY DISINTEGRATING) 0.5 MG PO (00:24)
--- NOTE | 2024-03-04 03:07 | PTCARENOTE ---
Assumed care for patient from previous RN. Patient is orientated to self. Patient holds confused conversations and needs reorientating that he is in the hospital often but can follow commands. Patient took meds crushed in applesauce with no
difficulty. Patient is resting in bed with call andrews in reach.
[2024-03-04 04:56] LABS: % Basophils 0.2 % (0-2); % Immature Granulocytes 2.9 % (0-0.5); % Lymphocytes 3.1 % (20.5-51.1); % Monocytes 2.9 % (1.7-9.3); % Neutrophils 90.9 % (42.2-75.2); Absolute Immature Granulocytes 0.5 10^3/uL (0-0.05); Absolute Lymphocytes 0.5 10^3/uL (1.2-3.4); Absolute Monocytes 0.5 10^3/uL (0.1-0.6); Absolute Neutrophils 15.8 10^3/uL (1.4-6.5); Hematocrit 33.9 % (39.0-52.0); Hemoglobin 11.8 g/dL (13.0-18.0); Mean Corp Hgb Conc. 34.8 g/dL (33.0-37.0); Mean Corpuscular Hgb 32.2 pg (27.0-31.0); Mean Corpuscular Volume 92.4 fL (80.0-94.0); Mean Platelet Volume 9.4 fL (7.4-10.4); Nucleated Red Blood Cells % 0 % (-); Platelet Count 279 10^3/uL (130-400); Red Blood Cell Count 3.67 10^6/uL (4.70-6.10); Red Cell Dist. Width 12.5 % (11.5-14.5); White Blood Cell Count 17.4 10^3/uL (4.8-10.8)
[2024-03-04 05:23] LABS: Blood Urea Nitrogen 75 mg/dl (9-20); Carbon Dioxide 27 mmol/L (22-30); Chloride 104 mmol/L (98-107); Estimated Creatinine Clearance 37 ml/min; Glucose 115 mg/dl (70-99); Potassium 3.6 mmol/L (3.5-5.1); Sodium 143 mmol/L (135-145); eGFR 50.81
--- NOTE | 2024-03-04 07:43 | W.PN.HOSP.TC ---
Addendum entered and electronically signed by Connor Funez MD 03/04/24 16:53:
I personally performed a history and physical exam of the patient and discussed management with the resident. I reviewed the resident's note and agree with the documented findings and plan of care HPI/CC except for changes in documentation
78-year-old admitted from [facility] with mental status change and fever. He was admitted to [facility] from 01/18/2024 till 02/13/2024 for cryptococcal meningitis and CVA. Patient presented with acute ischemic stroke in the left cerebral
peduncle. He completed course of IV amphotericin B and was switched to oral fluconazole and transferred to [facility]. Had more fever and confusion and was transferred back to the hospital.
MRI of the brain -9 mm subacute nonhemorrhagic infarct in the posterior medial aspect of the midbrain. Diffuse cortical and cerebellar atrophy with mild nonspecific white matter changes. More focal area of increased signal around FLAIR in the
white matter of the posterior left temporal lobe
Echo 02/21/2024-normal LV size, wall thickness and systolic function. Ejection fraction 55 to 60%. Stage I diastolic dysfunction. Thickened mitral valve leaflets, mild annular calcification, mitral valve opens normally, trace MR, moderate AAS,
mild AI
CVS: S1-S2 normal
Chest: CTA B/L
Abdomen: Soft, NT Bowel sounds present
Extremities: No edema
IRRIGATION SPECIALIST: Confused, medial rectus palsy right eye
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
Fevers improved
CSF cultures negative
amphotericin B and flucytosine stopped
Diflucan started
Also on dexamethasone
#WAI-no urinary retention on bladder scan. Started IV fluids
# TME-intermittent confusion-psychiatry consulted
Never completely resolved since first Meningitis diagnosis ( per )
EEG neg for SZ
# Aspiration pneumonitis
# Hypokalemia-replace as needed
# Hypertension-continue Norvasc 10 Mg, Coreg 6.25 mg twice daily, hydralazine 25 Mg every 8 hours
# Acute stroke-continue aspirin, Eliquis, statin
# Moderate Aortic stenosis
# Hyperlipidemia-continue statin
# Right subclavian vein thrombosis-continue Eliquis
# History of SIADH
# Hypoalbuminemia
# Ex-smoker
# DVT prophylaxis-Eliquis
# Full code
D/W RN
D/W ID
D/W Case management
Original Note:
Today's Communication/Plan
-
Continue antifungal meds
Continue Risperidone
Continue IVF
Dispo to rehab pending on bed availability
Assessment / Plan
Assessment / Plan
IMPRESSION: This is a 78 year old male patient [facility] with concerns of altered mental status and fever. He was very recently admitted to from 01/17 to 02/12 for Cryptococcal meningitis and CVA (acute ischemic stroke in the
Left cerebral peduncle).
Assessment:
Fever
Altered mental status
Occlusive thrombus in subclavian, axillary and proximal basilic vein
Hx of cryptococcal meningitis
CVA (acute ischemic stroke in the left cerebral peduncle)
Hyperlipidemia
PLAN:
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
-Repeat LP with opening pressure of 9 mmHg.
-ID involved in care
-Monitor for nephrotoxicity, cr 1.0 today
-Repeat therapeutic LP if any signs of increased ICP develops
-continue monitoring electrolytes K/mg/ca
-Continue IV dexamethasone taper as per ID
-Flucytosine levels results in non toxic range 02/16
-Temp normal range
-Blood cultures negative 02/27
-Discontinued ampoB/flucytosine due to clinical improvement
-Continue fluconazole due to presumed PIIRS as per ID
-WBC increased to 17, likely due to high dose steroids
-Possible dispo to [facility] pending availibility
#Elevated Cr possibly due to poor oral intake
-Bladder scan 178 ml today, less likely obstruction
-IVF restarted
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
-Patient had new right upper extreme weakness and right eye lateral gaze palsy
-MRI brain on 02/18 without contrast showing small midbrain stroke
-ST cleared for dysphagia diet.
-neurology evaluated and suspecting-cryptococcus meningitis related vasculopathy
-GIL recommended as well although patient unstable for this. TTE did not show any new findings.
- Continue Eliquis
- Failure of video fluoro swallow study- placement of Dobbhoff tube on 02/24
-Repeat VSF: puree diet with mod thick fluids
-Repeat EEG due to increased agitated behavior 03/02 showed no seizure activity
#Delirium/Agitated State
-psych consult, appreciated
-Continue Risperidone qd
#Febrile State-likely aspiration pneumonia
-Discontinued IV Rocephin on 02/26
#Essential Hypertension
-Elevated Bp readings: SBP 150s/160s previously
-Discontinue Coreg 12.5mg BID due to pippa
-Cotinue Coreg 6.25mg BID, monitor HR
-Continue Norvasc
-Hydralazine 25mg Q8
#Episodic NSVT
-Asymptomatic, observe
-Monitor electrolytes
#Non anion gap metabolic acidosis-likely secondary to diarrhea
-CO decreased to 18, k 2.9, chl 117 in AM
-Sodium bicarb given- 2 doses on 02/27
-Resolved
#Right UE DVT
- involving rt subclavian,axillary and proximal basillar vein on 02/09
- maintain on Eliquis therapy
#Hypokalemia
-patient continue to be hypokalemic despite 60meq K
-K replete as needed
-Continue potassium elixir
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
-resolved
#Hyperlipidemia
-Continue atorastatin
#Thyroid nodule
-followed by endocrine but apparently discharged by them--biopsy in 2022 was negative--TSH WNL
DVT prophylaxis
Code status --Full code
Anticipated Discharge: 24 - 48 hours
Subjective/Interval History
-
Date of Service: March 04, 2024
Patient was apparently agitated overnight even after receiving Risperidone as per nurse. At time of my exam, patient was calm and was able to answer some questions.
Objective Data
-
Labs:
Laboratory Results
03/04/24
04:14
WBC 17.4 H
Hgb 11.8 L
Hct 33.9 L
Plt Count 279
Sodium 143
Potassium 3.6
Chloride 104
Carbon Dioxide 27
BUN 75 H
Creatinine 1.4 H
Glucose 115 H
Calcium 10.0
Vital Signs:
Vital Signs
Temp Pulse Resp BP Pulse Ox
97.7 F 77 14 142/75 98
03/03/24 23:00 03/04/24 06:00 03/04/24 06:00 03/04/24 06:00 03/03/24 08:29
I&O
03/03/24 03/04/24 03/05/24
06:59 06:59 06:59
Intake Total 120 / 120
Output Total 1650 / 1650 400 / 400
Balance -1530 / -1530 -400 / -400
Review of Systems
-
All other systems: Reviewed and negative
Physical Exam
-
General: No Apparent Distress
HEENT: Normocephalic
Respiratory: Clear to Auscultation
Cardiac: Regular Rhythm and S1/S2
GI: Soft, Nontender and Nondistended
Musculoskeletal: No Cyanosis and No Edema
Skin: Warm and Dry
Neuro: Awake, Alert and Oriented (mildly)
[2024-03-04] MEDS: DECADRON 10 MG PO (08:53)
[2024-03-04] MEDS: LOW STRENGTH ASPIRIN 81 MG PO (08:53)
[2024-03-04] MEDS: PREVACID 30 MG PO (08:53)
[2024-03-04] MEDS: DIFLUCAN 800 MG PO (08:54)
[2024-03-04] MEDS: THERAGRAN 1 TABLET PO (08:54)
[2024-03-04] MEDS: ELIQUIS 5 MG PO ×2 (08:54→21:08)
[2024-03-04] MEDS: LIPITOR 10 MG PO (08:54)
[2024-03-04] MEDS: COREG 6.25 MG PO ×2 (08:54→21:08)
[2024-03-04] MEDS: NORVASC 5 MG PO (08:55)
--- NOTE | 2024-03-04 09:20 | CM ---
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 Room air. Receiving PO Decadron taper. Psych Consult due
to episode hallucinations & agitation - started on Risperdal. Room air. Dysphagia diet. PT & OT 03/03; assist of 2, recommend acute rehab. Off Medsitter. Per nurse; remains confused.
Spoke with [facility]; they do not have an available bed today however may have a bed tomorrow and definitely by Tuesday 03/06. She will reach out to tomorrow if they have an available bed.
Spoke with patient's Maylin; provided update [facility] accepted patient to return however will need to wait 1-2 days for available bed. states she definitely wants her to return to [facility] rather than go to another facility.
Plan follow up with [facility] tomorrow for available bed.
Plan [facility] when bed available.
--- NOTE | 2024-03-04 10:16 | PTCARENOTE ---
Assumed care of patient at beginning of this shift from previous RN. Patient very confused, set off bed alarm when attempting to get OOB. Assisted to chair x2 person. Dr Funez on unit and updated.
[2024-03-04] MEDS: NSS 1000 IV (13:17)
--- NOTE | 2024-03-04 16:07 | W.PN.UPDATE ---
Update Note
Progress Note Update
patient seen chart reviewed. mr roberts was awake and alert . he remains confused however he was peaceful. he did not relate anything to me that was relevant to the situation. started talking about a case of beer at one point. feels he is making
improvements every day . she understands that sometimes he has been agitated and required a prn to calm him. we discussed using risperdal. he had received a prn the last few days and i had considered whether to increase standing dose but given how
calm he was this afternoon when i saw him would hold him. also spoke briefly to PT who had met with him and too felt he was improving. will check in w him tomorrow.
--- NOTE | 2024-03-04 16:14 | W.PN.ID1 ---
Addendum entered and electronically signed by Naa John MD 03/04/24 17:09:
I saw and evaluated the patient. I reviewed the resident�s separately documented note and agree with findings and plan as documented in the resident�s note with the following additions/corrections:
SOAP
remains confused
requires two person assist to chair
taking meds without difficulty
O
VSS
Physical Exam
Constitutional: Comfortable
Cardiovascular: Regular Rate and S1/S2; Negative Murmur, Rub or Gallop
Pulmonary: Clear; Negative Wheezes, Rales or Rhonchi
Gastrointestinal: Soft, Non Tender, Non Distended and Normal Bowel Sounds
Skin: Warm
Neurological: Awake and Alert, confused
Psychological: Calm
labs reviewed most notable for Cr now 1.4
A&P
Assessment -
PIIRS 'Post Infectious Inflammatory Response Syndrome'
Would expect CSF culture to be positive by 7 days at the latest if this was relapse, now with negative cultures at 2 weeks
Cryptococcal Meningitis
AMS - intermittent
Plan:
PIIRS
due to Crypto Meningitis
Patient has finished 4 weeks of induction therapy with amphotericin B and flucytosine. His repeat CSF cultures obtained on 02/16 remains negative as expected
c/w fluconazole 800 mg PO qday
Atorvastatin to 10 mg/day when on fluconazole. Can resume his home dose once he finishes his consolidation therapy.
Amlodipine dose reduced to 5 mg once a day when on fluconazole. Can resume his home dose once he finishes his consolidation therapy.
Attribute leukocytosis to high-dose steroids.
c/w dexamethasone 10 mg qday then
03/10 dex 8 mg Qday
03/17 dex 6 mg Qday
03/24 dex 4 mg Qday
03/31 dex 2 mg Qday
04/07 dex 1 mg Qday
04/14 Stop
WAI
- will need to see improvement prior to dc
- if further decline will need dose adjustment of fluconazole
- management per primary team - discussed with them
Original Note:
Date of Service
Date of Service: March 04, 2024
Today's Communication
Continue fluconazole.
Monitor renal function.
Assessment / Plan
Assessment -
Subjective-patient is not oriented, denies having any complaints.
Objective -leukocytosis-WBC count-12.0 on 03/02,14.4 on 03/03 and 17.7 on 03/04. WAI - Sr.cr -1.4,
Ianfcdvfc-LPZTG-ywropbdfmjaicw inflammatory response syndrome. CSF cultures were negative x 2 weeks.
Cryptococcal meningitis.
Plan -
PIIRS
due to Crypto Meningitis
Patient has finished 4 weeks of induction therapy with amphotericin B and flucytosine. His repeat CSF cultures obtained on 02/16 remain negative for 2 weeks as of 03/02/2024.
Patient is started on high-dose of fluconazole for consolidation therapy-800 mg fluconazole OD-day 2.
QTc interval in the a.m. today at 416 ms.
Reduce the dose of atorvastatin to 10 mg/day when on fluconazole. Can resume his home dose once he finishes his consolidation therapy.
Amlodipine dose reduced to 5 mg once a day.
Elevated leukocytosis secondary to high-dose of IV steroids.
On dexamethasone IV 6 mg BID - taper weekly (copied from Dr. John's notes).
today 03/02 dex 10 mg qday
03/10 dex 8 mg
03/17 dex 6 mg Qday
03/24 dex 4 mg Qday
03/31 dex 2 mg Qday
04/07 dex 1 mg Qday
04/14 Stop
Fevers and hypothermia resolved
Blood cultures obtained on 02/27-negative
Urine analysis-negative
Concern for aspiration was noticed on videofluoroscopic swallow study, patient was on Dobbhoff tube. Remove Dobbhoff tube in the a.m. today.
Concern for aspiration pneumonia and patient completed a recent course of ceftriaxone for 5 days.
Acute Stroke
cryptococcus is associated with stroke occasionally, no modifiable risk factors from ID perspective
Neurology following, EEG showed diffuse cortical slowing
����������������������������������������������������������
Chief Complaint
-: Fever and Other (Cryptococcal Meningitis)
Subjective / Review of Systems
Patient is comfortable and talking today. Review of systems is negative.
Review of Systems: No Fever, No Chills, No Headache, No Stiff Neck, No Cough, No Sputum Production, No Chest Pain, No Palpitations, No Abdominal Pain, No Nausea and No Joint Pain
Vital Signs / Physical Exam
Vital Signs
Vital Signs
Temp Pulse Resp BP Pulse Ox
97.4 F 63 15 146/78 96
03/04/24 15:54 03/04/24 12:00 03/04/24 12:00 03/04/24 12:00 03/04/24 13:13
Physical Exam
Constitutional: Comfortable
Eyes: Negative Pupils Equal
Cardiovascular: Regular Rate and S1/S2; Negative Murmur, Rub or Gallop
Pulmonary: Clear; Negative Wheezes, Rales or Rhonchi
Gastrointestinal: Soft, Non Tender, Non Distended and Normal Bowel Sounds
Extremities: Negative Edema
Skin: Warm
Neurological: Awake and Alert; Negative Oriented
Psychological: Calm
Objective Data
Lab Data
Lab Results
03/04/24 04:14
03/04/24 04:14
PT 19.5 Sec (11.4-14.6) H 02/17/24 10:13
INR 1.67 02/17/24 10:13
APTT 25.1 Sec (23.4-35.0) 02/17/24 10:13
Estimated Creat Clear 37 ml/min 03/04/24 04:14
Lactic Acid Cancelled 02/17/24 14:15
Total Bilirubin 1.3 mg/dl (0.2-1.3) 02/18/24 09:06
AST 26 U/L (17-59) 02/18/24 09:06
ALT 27 U/L (0-50) 02/18/24 09:06
Alkaline Phosphatase 78 U/L (38-126) 02/18/24 09:06
Most recent labs reviewed.
CT Scan: Image Reviewed and Report Reviewed
MRI: Image Reviewed and Report Reviewed
Microbiology: Report Reviewed and Discussed w/ Micro
Micro Results:
02/28/24 13:40 Blood Culture - Final
Blood/Venous No Growth - Final Report
02/28/24 20:50 Blood Culture - Preliminary
Blood/Venous No Growth in 4 days- Final report to follow
02/19/24 14:20 Fungal Culture - Preliminary
Csf Culture in progress.
Positive cultures are reported as soon as detected.
Final report to follow in four to five weeks.
02/17/24 15:27 Fungal Culture - Preliminary
Csf Culture in progress.
Positive cultures are reported as soon as detected.
Final report to follow in four to five weeks.
02/22/24 21:02 Blood Culture - Final
Blood/Venous No Growth - Final Report
02/22/24 19:56 Blood Culture - Final
Blood/Venous No Growth - Final Report
02/17/24 10:13 Blood Culture - Final
Blood/Venous No Growth - Final Report
02/17/24 15:27 CSF Culture - Final
Csf No Growth After 5 Days - Final Report
Gram Stain - Final
02/17/24 10:13 Blood Culture - Final
Blood/Venous No Growth - Final Report
02/17/24 15:27 Meningitis/Encephalitis Panel (PCR) - Final
Csf
02/17/24 10:13 Influenza Types A & B (LEO) - Final
Nasal Swab Negative for Influenza A & B, NAAT
Negative results must be combined with clinical observations
and patient history.
Nucleic Acid Amplification test (NAAT)performed on the
[employer] platform.
Speech therapy recommendations reviewed.
Abnormal EEG - diffuse cortical slowing.
Other: Image Reviewed
[2024-03-04] MEDS: RISPERDAL 0.5 MG PO (17:01)
--- NOTE | 2024-03-04 19:01 | PTCARENOTE ---
Patient transferred by this RN to [facility] with belongings and accompanying; report given to Chantell DODD.
[2024-03-04 21:23] LABS: Urine Albumin Negative (Neg - Trace); Urine Bilirubin Negative (Negative); Urine Character Clear (Clear); Urine Color Yellow; Urine Glucose Negative (Negative); Urine Ketone Negative (Negative); Urine Leukocyte Negative (Negative); Urine Nitrite Negative (Negative); Urine Occult Blood Negative (Negative); Urine Urobilinogen Negative (Neg - 1+)
[2024-03-04 21:36] LABS: Urine Sodium 25 mmol/L (30-90)
[2024-03-05] VITALS (7 sets, daily range): BP systolic 133–176; BP diastolic 65–77
[2024-03-05] MEDS: APRESOLINE 10 MG IV (03:13)
[2024-03-05] MEDS: NSS 1000 IV ×2 (03:13→15:46)
[2024-03-05 05:52] LABS: % Basophils 0.2 % (0-2); % Immature Granulocytes 3.3 % (0-0.5); % Lymphocytes 2.2 % (20.5-51.1); % Monocytes 2.3 % (1.7-9.3); Absolute Immature Granulocytes 0.6 10^3/uL (0-0.05); Absolute Lymphocytes 0.4 10^3/uL (1.2-3.4); Absolute Monocytes 0.4 10^3/uL (0.1-0.6); Absolute Neutrophils 16.3 10^3/uL (1.4-6.5); Hematocrit 33.5 % (39.0-52.0); Hemoglobin 11.9 g/dL (13.0-18.0); Mean Corp Hgb Conc. 35.5 g/dL (33.0-37.0); Mean Corpuscular Hgb 33.6 pg (27.0-31.0); Mean Corpuscular Volume 94.6 fL (80.0-94.0); Mean Platelet Volume 9.4 fL (7.4-10.4); Nucleated Red Blood Cells % 0 % (-); Platelet Count 250 10^3/uL (130-400); Red Blood Cell Count 3.54 10^6/uL (4.70-6.10); Red Cell Dist. Width 12.6 % (11.5-14.5); White Blood Cell Count 17.7 10^3/uL (4.8-10.8)
[2024-03-05 06:27] LABS: Blood Urea Nitrogen 78 mg/dl (9-20); Calcium 9.6 mg/dl (8.4-10.2); Carbon Dioxide 25 mmol/L (22-30); Chloride 107 mmol/L (98-107); Estimated Creatinine Clearance 45 ml/min; Glucose 115 mg/dl (70-99); Potassium 3.7 mmol/L (3.5-5.1); Sodium 145 mmol/L (135-145); eGFR > 60.00
--- NOTE | 2024-03-05 07:34 | W.PN.HOSP.TC ---
Addendum entered and electronically signed by Connor Funez MD 03/05/24 13:02:
I personally performed a history and physical exam of the patient and discussed management with the resident. I reviewed the resident's note and agree with the documented findings and plan of care HPI/CC.
Patient was seen earlier. He was confused. But pleasant ,exam unchanged.
[facility] has no beds today therefore patient is to stay until tomorrow. Creatinine has normalized.
Original Note:
Today's Communication/Plan
-
Continue antifungal therapy
Continue IVF
Continue steroid taper as per ID
Pending discharge to [facility] if bed availbility
Assessment / Plan
Assessment / Plan
IMPRESSION: This is a 78 year old male patient coming to the ER from [facility] with concerns of altered mental status and fever. He was very recently admitted to from 01/17 to 02/12 for Cryptococcal meningitis and CVA (acute ischemic stroke in the
Left cerebral peduncle).
Assessment:
Fever
Altered mental status
Occlusive thrombus in subclavian, axillary and proximal basilic vein
Hx of cryptococcal meningitis
CVA (acute ischemic stroke in the left cerebral peduncle)
Hyperlipidemia
PLAN:
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
-Repeat LP with opening pressure of 9 mmHg.
-ID involved in care
-Monitor for nephrotoxicity, cr 1.0 today
-Repeat therapeutic LP if any signs of increased ICP develops
-continue monitoring electrolytes K/mg/ca
-Continue PO dexamethasone taper as per ID
-Flucytosine levels results in non toxic range 02/16
-Temp normal range
-Blood cultures negative 02/27
-Discontinued ampoB/flucytosine due to clinical improvement
-Continue fluconazole due to presumed PIIRS as per ID
-WBC increased to 17, likely due to high dose steroids
-Possible dispo to [facility] pending availibility
#Elevated Cr possibly due to poor oral intake- resolved
-Bladder scan 178 ml today, less likely obstruction
-IVF continue
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
-Patient had new right upper extreme weakness and right eye lateral gaze palsy
-MRI brain on 02/18 without contrast showing small midbrain stroke
-ST cleared for dysphagia diet.
-neurology evaluated and suspecting-cryptococcus meningitis related vasculopathy
-GIL recommended as well although patient unstable for this. TTE did not show any new findings.
- Continue Eliquis
- Failure of video fluoro swallow study- placement of Dobbhoff tube on 02/24
-Repeat VSF: puree diet with mod thick fluids
-Repeat EEG due to increased agitated behavior 03/02 showed no seizure activity
#Delirium/Agitated State
-psych consult, appreciated
-Continue Risperidone qd
#Febrile State-likely aspiration pneumonia
-Discontinued IV Rocephin on 02/26
#Essential Hypertension
-Elevated Bp readings: SBP 150s/160s previously
-Discontinue Coreg 12.5mg BID due to pippa
-Cotinue Coreg 6.25mg BID, monitor HR
-Continue Norvasc
-Hydralazine 25mg Q8
#Episodic NSVT
-Asymptomatic, observe
-Monitor electrolytes
#Non anion gap metabolic acidosis-likely secondary to diarrhea
-CO decreased to 18, k 2.9, chl 117 in AM
-Sodium bicarb given- 2 doses on 02/27
-Resolved
#Right UE DVT
- involving rt subclavian,axillary and proximal basillar vein on 02/09
- maintain on Eliquis therapy
#Hypokalemia
-patient continue to be hypokalemic despite 60meq K
-K replete as needed
-Continue potassium elixir
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
-resolved
#Hyperlipidemia
-Continue atorastatin
#Thyroid nodule
-followed by endocrine but apparently discharged by them--biopsy in 2022 was negative--TSH WNL
DVT prophylaxis
Code status --Full code
Anticipated Discharge: 24 - 48 hours
Subjective/Interval History
-
Date of Service: March 05, 2024
Patient seems calm and oriented to our conversation today and was able to follow commands.
Objective Data
-
Labs:
Laboratory Results
03/05/24
05:15
WBC 17.7 H
Hgb 11.9 L
Hct 33.5 L
Plt Count 250
Sodium 145
Potassium 3.7
Chloride 107
Carbon Dioxide 25
BUN 78 H
Creatinine 1.2
Glucose 115 H
Calcium 9.6
Vital Signs:
Vital Signs
Temp Pulse Resp BP Pulse Ox
97.9 F 69 16 159/65 95
03/05/24 03:10 03/05/24 04:07 03/05/24 03:10 03/05/24 04:07 03/05/24 03:10
I&O
03/04/24 03/05/24 03/06/24
06:59 06:59 06:59
Intake Total 360 / 360
Output Total 400 / 400 400 / 400
Balance -400 / -400 -40 / -40
Review of Systems
-
All other systems: Reviewed and negative
Physical Exam
-
General: No Apparent Distress
HEENT: Normocephalic
Respiratory: Clear to Auscultation
Cardiac: Regular Rhythm and S1/S2
GI: Soft, Nontender and Nondistended
Musculoskeletal: No Cyanosis and No Edema
Skin: Warm and Dry
Neuro: Awake, Alert and Oriented
[2024-03-05] MEDS: COREG 6.25 MG PO ×2 (08:29→20:27)
[2024-03-05] MEDS: DIFLUCAN 800 MG PO (08:30)
[2024-03-05] MEDS: NORVASC 5 MG PO (08:30)
[2024-03-05] MEDS: DECADRON 10 MG PO (08:30)
[2024-03-05] MEDS: APRESOLINE 25 MG PO ×3 (08:30→23:48)
[2024-03-05] MEDS: PREVACID 30 MG PO (08:31)
[2024-03-05] MEDS: THERAGRAN 1 TABLET PO (08:31)
[2024-03-05] MEDS: LIPITOR 10 MG PO (08:31)
[2024-03-05] MEDS: ELIQUIS 5 MG PO ×2 (08:32→20:27)
[2024-03-05] MEDS: LOW STRENGTH ASPIRIN 81 MG PO (08:32)
--- NOTE | 2024-03-05 09:35 | W.PN.ID1 ---
Addendum entered and electronically signed by Naa John MD 03/05/24 16:00:
discussed with dr penny, fluconazole
Addendum entered and electronically signed by Naa John MD 03/05/24 15:58:
I saw and evaluated the patient. I reviewed the resident�s note and agree with findings and plan as documented in the resident�s note.
continues with overall improvement, renal function now improving as well.
steroid taper as below
continue fluconazole 800 mg PO qday x8 weeks 03/02-04/26
then will decrease fluconazole dose to 200 mg PO qda for 9 more months.
follow up in my clinic in late eb with CMP just before the visit. my office will adjust previously scheduled visit.
stable for dc from ID perspective
AW
Original Note:
Date of Service
Date of Service: March 05, 2024
Today's Communication
Reassess for renal function.
Continue high dose flucanozole at 800mg and dexamethasone taper.
Assessment / Plan
Assessment -
Subjective-patient is not oriented, denies having any complaints.
Objective -leukocytosis-WBC count-12.0 on 03/02,14.4 on 03/03 and 17.7 on 03/04. WAI - Sr.cr -1.4, Sr cr improving - 1.2 today.
Xseawdxcw-VLEHJ-psykwjdnjxmbkl inflammatory response syndrome. CSF cultures were negative x 2 weeks.
Cryptococcal meningitis.
Plan -
PIIRS
due to Crypto Meningitis
Patient has finished 4 weeks of induction therapy with amphotericin B and flucytosine. His repeat CSF cultures obtained on 02/16 remain negative for 2 weeks as of 03/02/2024.
Patient is started on high-dose of fluconazole for consolidation therapy-800 mg fluconazole OD-day 2.
QTc interval in the a.m. today at 416 ms.
Reduce the dose of atorvastatin to 10 mg/day when on fluconazole. Can resume his home dose once he finishes his consolidation therapy.
Amlodipine dose reduced to 5 mg once a day.
Elevated leukocytosis secondary to high-dose of IV steroids.
On dexamethasone IV 6 mg BID - taper weekly (copied from Dr. John's notes).
today 03/02 dex 10 mg qday
03/10 dex 8 mg
03/17 dex 6 mg Qday
03/24 dex 4 mg Qday
03/31 dex 2 mg Qday
04/07 dex 1 mg Qday
04/14 Stop
Fevers and hypothermia resolved
Blood cultures obtained on 02/27-negative
Urine analysis-negative
Concern for aspiration was noticed on videofluoroscopic swallow study, patient was on Dobbhoff tube. Remove Dobbhoff tube in the a.m. today.
Concern for aspiration pneumonia and patient completed a recent course of ceftriaxone for 5 days.
Acute Stroke
cryptococcus is associated with stroke occasionally, no modifiable risk factors from ID perspective
Neurology following, EEG showed diffuse cortical slowing
����������������������������������������������������������
Chief Complaint
-: Fever and Other (Cryptococcal Meningitis)
Subjective / Review of Systems
Review of Systems: No Fever, No Chills, No Headache, No Stiff Neck, No Cough, No Sputum Production, No Chest Pain, No Palpitations, No Abdominal Pain, No Nausea, No Dysuria and No Skin Rash
Vital Signs / Physical Exam
Vital Signs
Vital Signs
Temp Pulse Resp BP Pulse Ox
98.2 F 72 16 143/76 99
03/05/24 07:37 03/05/24 07:37 03/05/24 07:37 03/05/24 07:37 03/05/24 07:37
Physical Exam
Constitutional: Comfortable
Eyes: Negative Pupils Equal
Cardiovascular: Regular Rate and S1/S2; Negative Murmur, Rub or Gallop
Pulmonary: Clear; Negative Wheezes, Rales or Rhonchi
Gastrointestinal: Soft, Non Tender, Non Distended and Normal Bowel Sounds
Extremities: Negative Edema
Skin: Warm
Neurological: Awake, Alert and Oriented (to person and place, not time. )
Psychological: Calm
Objective Data
Lab Data
Lab Results
03/05/24 05:15
03/05/24 05:15
PT 19.5 Sec (11.4-14.6) H 02/17/24 10:13
INR 1.67 02/17/24 10:13
APTT 25.1 Sec (23.4-35.0) 02/17/24 10:13
Estimated Creat Clear 45 ml/min 03/05/24 05:15
Lactic Acid Cancelled 02/17/24 14:15
Total Bilirubin 1.3 mg/dl (0.2-1.3) 02/18/24 09:06
AST 26 U/L (17-59) 02/18/24 09:06
ALT 27 U/L (0-50) 02/18/24 09:06
Alkaline Phosphatase 78 U/L (38-126) 02/18/24 09:06
Most recent labs reviewed.
CT Scan: Image Reviewed and Report Reviewed
MRI: Image Reviewed and Report Reviewed
Microbiology: Report Reviewed
Micro Results:
02/28/24 20:50 Blood Culture - Final
Blood/Venous No Growth - Final Report
02/28/24 13:40 Blood Culture - Final
Blood/Venous No Growth - Final Report
02/19/24 14:20 Fungal Culture - Preliminary
Csf Culture in progress.
Positive cultures are reported as soon as detected.
Final report to follow in four to five weeks.
02/17/24 15:27 Fungal Culture - Preliminary
Csf Culture in progress.
Positive cultures are reported as soon as detected.
Final report to follow in four to five weeks.
02/22/24 21:02 Blood Culture - Final
Blood/Venous No Growth - Final Report
02/22/24 19:56 Blood Culture - Final
Blood/Venous No Growth - Final Report
02/17/24 10:13 Blood Culture - Final
Blood/Venous No Growth - Final Report
02/17/24 15:27 CSF Culture - Final
Csf No Growth After 5 Days - Final Report
Gram Stain - Final
02/17/24 10:13 Blood Culture - Final
Blood/Venous No Growth - Final Report
02/17/24 15:27 Meningitis/Encephalitis Panel (PCR) - Final
Csf
02/17/24 10:13 Influenza Types A & B (LEO) - Final
Nasal Swab Negative for Influenza A & B, NAAT
Negative results must be combined with clinical observations
and patient history.
Nucleic Acid Amplification test (NAAT)performed on the
[employer] platform.
Speech therapy recommendations reviewed.
Abnormal EEG - diffuse cortical slowing.
Other: Report Reviewed
--- NOTE | 2024-03-05 11:28 | W.PN.UPDATE ---
Update Note
Progress Note Update
patient seen chart reviewed. spoke with nursing who reports while patient is confused he is generally pleasant and has been cooperative. when i saw him he was calmly lying in bed interacting w who seems very supportive. the patient did have a
prn yesterday but it was at 00:24 not clear what transpired at that time and the rest of the day until present transpired without incident. no changes were made in patient's medication. he is receiving one dose of o.5 mg risperdal in the evening.
hopefully he will continue to improve vis a vis confusion and this can be discontinued.
--- NOTE | 2024-03-05 11:44 | CM ---
Addendum entered by JAMEY Ramos 03/05/24 11:58:
# for report [phone] fax [phone]
Original Note:
Reviewed chart, spoke with Janay in admissions at [facility] who stated that she will have a bed for patient tomorrow, Saturday.
Plan: Case management will continue to follow and assist with discharge planning. [place] tomorrow. Will update attending.
[2024-03-05] MEDS: RISPERDAL 0.5 MG PO (18:06)
--- NOTE | 2024-03-05 23:23 | VATNOTE ---
CALLED BY PCN THAT PT HAD PARTIALLY REMOVED LUE PICC. PICC OUT 26CM. PT WITH NO CURRENT NEED FOR PICC. PICC COMPLETELY REMOVED,46CM, AND PERIPHERAL IV SITE ESTABLISHED DOCUMENTED.
[2024-03-06 03:55] VITALS: BP 151/74
[2024-03-06] MEDS: NSS 1000 IV (06:02)
[2024-03-06 07:43] VITALS: BP 170/76
--- NOTE | 2024-03-06 07:59 | W.PN.HOSP.TC ---
Addendum entered and electronically signed by Connor Funez MD 03/06/24 14:11:
I personally performed a history and physical exam of the patient and discussed management with the resident. I reviewed the resident's note and agree with the documented findings and plan of care HPI/CC
Patient was seen earlier. Late documentation. He is feeling okay confused. No new changes in neuro exam.
Inflammatory response system secondary to cryptococcal meningitis
Continue fluconazole, steroid taper as outlined by ID
Elevated BUN likely secondary to steroids
Creatinine is trending down
Decadron 10 mg daily for 2 more doses, 8 mg daily for a week 6 mg daily for a week 4 mg daily for a week 2 mg daily for a week 1 mg daily for a week and then stop.
Discussed with nursing and case management
Total discharge coordination time more than 30 minutes
Original Note:
Today's Communication/Plan
-
Dispo to [facility]
Continue steroids and antifungal therapy
Assessment / Plan
Assessment / Plan
IMPRESSION: This is a 78 year old male patient coming to the ER from [facility] with concerns of altered mental status and fever. He was very recently admitted to from 01/17 to 02/12 for Cryptococcal meningitis and CVA (acute ischemic stroke in the
Left cerebral peduncle).
Assessment:
Fever
Altered mental status
Occlusive thrombus in subclavian, axillary and proximal basilic vein
Hx of cryptococcal meningitis
CVA (acute ischemic stroke in the left cerebral peduncle)
Hyperlipidemia
PLAN:
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
-Repeat LP with opening pressure of 9 mmHg.
-ID involved in care
-Monitor for nephrotoxicity, cr 1.0 today
-Repeat therapeutic LP if any signs of increased ICP develops
-continue monitoring electrolytes K/mg/ca
-Continue PO dexamethasone taper as per ID
-Flucytosine levels results in non toxic range 02/16
-Temp normal range
-Blood cultures negative 02/27
-Discontinued ampoB/flucytosine due to clinical improvement
-Continue fluconazole due to presumed PIIRS as per ID
-WBC trending down
-Possible dispo to [facility] today pending availibility
#Elevated Cr possibly due to poor oral intake- resolved
-Bladder scan 178 ml today, less likely obstruction
-IVF continue
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
-Patient had new right upper extreme weakness and right eye lateral gaze palsy
-MRI brain on 02/18 without contrast showing small midbrain stroke
-ST cleared for dysphagia diet.
-neurology evaluated and suspecting-cryptococcus meningitis related vasculopathy
-GIL recommended as well although patient unstable for this. TTE did not show any new findings.
- Continue Eliquis
- Failure of video fluoro swallow study- placement of Dobbhoff tube on 02/24
-Repeat VSF: puree diet with mod thick fluids
-Repeat EEG due to increased agitated behavior 03/02 showed no seizure activity
#Delirium/Agitated State
-psych consult, appreciated
-Continue Risperidone qd
#Febrile State-likely aspiration pneumonia
-Discontinued IV Rocephin on 02/26
#Essential Hypertension
-Elevated Bp readings: SBP 150s/160s previously
-Discontinue Coreg 12.5mg BID due to pippa
-Cotinue Coreg 6.25mg BID, monitor HR
-Continue Norvasc
-Hydralazine 25mg Q8
#Episodic NSVT
-Asymptomatic, observe
-Monitor electrolytes
#Non anion gap metabolic acidosis-likely secondary to diarrhea
-CO decreased to 18, k 2.9, chl 117 in AM
-Sodium bicarb given- 2 doses on 02/27
-Resolved
#Right UE DVT
- involving rt subclavian,axillary and proximal basillar vein on 02/09
- maintain on Eliquis therapy
#Hypokalemia
-patient continue to be hypokalemic despite 60meq K
-K replete as needed
-Continue potassium elixir
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
-resolved
#Hyperlipidemia
-Continue atorastatin
#Thyroid nodule
-followed by endocrine but apparently discharged by them--biopsy in 2022 was negative--TSH WNL
DVT prophylaxis
Code status --Full code
Anticipated Discharge: Within 24 hours
Subjective/Interval History
-
Date of Service: March 06, 2024
Patient feels fine today.
Objective Data
-
Labs:
Laboratory Results
03/06/24
06:00
WBC Cancelled
Hgb Cancelled
Hct Cancelled
Plt Count Cancelled
Sodium Cancelled
Potassium Cancelled
Chloride Cancelled
Carbon Dioxide Cancelled
BUN Cancelled
Creatinine Cancelled
Glucose Cancelled
Calcium Cancelled
Vital Signs:
Vital Signs
Temp Pulse Resp BP Pulse Ox
98.3 F 78 17 170/76 96
03/06/24 07:43 03/06/24 07:43 03/06/24 07:43 03/06/24 07:43 03/06/24 07:43
I&O
03/05/24 03/06/24 03/07/24
06:59 06:59 06:59
Intake Total 360 / 360
Output Total 400 / 400 200 / 200
Balance -40 / -40 -200 / -200
Review of Systems
-
All other systems: Reviewed and negative
Physical Exam
-
General: No Apparent Distress
HEENT: Normocephalic
Respiratory: Clear to Auscultation
Cardiac: Regular Rhythm and S1/S2
GI: Soft, Nontender and Nondistended
Musculoskeletal: No Cyanosis and No Edema
Skin: Warm and Dry
Neuro: Awake and Alert
[2024-03-06] MEDS: PREVACID 30 MG PO (08:47)
[2024-03-06] MEDS: THERAGRAN 1 TABLET PO (08:47)
[2024-03-06] MEDS: ELIQUIS 5 MG PO (08:48)
[2024-03-06] MEDS: DECADRON 10 MG PO (08:48)
[2024-03-06] MEDS: DIFLUCAN 800 MG PO (08:49)
[2024-03-06] MEDS: APRESOLINE 25 MG PO (08:50)
[2024-03-06] MEDS: COREG 6.25 MG PO (08:50)
[2024-03-06] MEDS: LOW STRENGTH ASPIRIN 81 MG PO (08:50)
[2024-03-06] MEDS: LIPITOR 10 MG PO (08:51)
[2024-03-06] MEDS: NORVASC 5 MG PO (08:51)
[2024-03-06 08:52] LABS: % Basophils 0.2 % (0-2); % Immature Granulocytes 2.5 % (0-0.5); % Lymphocytes 1.7 % (20.5-51.1); % Neutrophils 92.6 % (42.2-75.2); Absolute Immature Granulocytes 0.4 10^3/uL (0-0.05); Absolute Lymphocytes 0.3 10^3/uL (1.2-3.4); Absolute Monocytes 0.5 10^3/uL (0.1-0.6); Absolute Neutrophils 15.5 10^3/uL (1.4-6.5); Hematocrit 31.3 % (39.0-52.0); Hemoglobin 11.2 g/dL (13.0-18.0); Mean Corp Hgb Conc. 35.8 g/dL (33.0-37.0); Mean Corpuscular Hgb 32.5 pg (27.0-31.0); Mean Corpuscular Volume 90.7 fL (80.0-94.0); Mean Platelet Volume 9.6 fL (7.4-10.4); Nucleated Red Blood Cells % 0 % (-); Platelet Count 214 10^3/uL (130-400); Red Blood Cell Count 3.45 10^6/uL (4.70-6.10); White Blood Cell Count 16.7 10^3/uL (4.8-10.8)
[2024-03-06 08:59] VITALS: BP 120/58
--- NOTE | 2024-03-06 09:17 | W.PN.ID1 ---
Addendum entered and electronically signed by Naa John MD 03/06/24 16:04:
I saw and evaluated the patient. I reviewed the resident�s note and agree with findings and plan as documented in the resident�s note.
steroid taper as below
continue fluconazole 800 mg PO qday x8 weeks 03/02-04/26
then will decrease fluconazole dose to 200 mg PO qda for 9 more months.
follow up in my clinic in late novemeber with CMP just before the visit. my office will adjust previously scheduled visit.
stable for dc from ID perspective
Original Note:
Date of Service
Date of Service: March 06, 2024
Today's Communication
Continue hydration, fluconazole and steroid taper.
Monitor renal function.
Assessment / Plan
Assessment -
Subjective-patient is not oriented, denies having any complaints.
Objective -leukocytosis-WBC count-12.0 on 03/02,14.4 on 03/03 and 17.7 on 03/04. WAI - Sr.cr -1.4, Sr cr improving - 1.2 today.
Cccopjfle-MOKUT-gijkicfytkxxal inflammatory response syndrome. CSF cultures were negative x 2 weeks.
Cryptococcal meningitis.
Plan -
PIIRS
due to Crypto Meningitis
Patient has finished 4 weeks of induction therapy with amphotericin B and flucytosine. His repeat CSF cultures obtained on 02/16 remain negative for > 2 weeks as of today.
Patient is started on high-dose of fluconazole for consolidation therapy-800 mg fluconazole OD-day4.
QTc interval in the a.m. today at 416 ms.
Reduce the dose of atorvastatin to 10 mg/day when on fluconazole. Can resume his home dose once he finishes his consolidation therapy.
Amlodipine dose reduced to 5 mg once a day.
Elevated leukocytosis secondary to high-dose of IV steroids.
On dexamethasone IV 6 mg BID - taper weekly (copied from Dr. John's notes).
today 03/02 dex 10 mg qday
03/10 dex 8 mg
03/17 dex 6 mg Qday
03/24 dex 4 mg Qday
03/31 dex 2 mg Qday
04/07 dex 1 mg Qday
04/14 Stop
Fevers and hypothermia resolved
Blood cultures obtained on 02/27-negative
Urine analysis-negative
Concern for aspiration was noticed on videofluoroscopic swallow study, patient was on Dobbhoff tube. Remove Dobbhoff tube in the a.m. today.
Concern for aspiration pneumonia and patient completed a recent course of ceftriaxone for 5 days.
Acute Stroke
cryptococcus is associated with stroke occasionally, no modifiable risk factors from ID perspective
Neurology following, EEG showed diffuse cortical slowing
����������������������������������������������������������
Chief Complaint
-: Fever and Other (Cryptococcal Meningitis)
Subjective / Review of Systems
Review of Systems: No Fever, No Chills, No Headache, No Stiff Neck, No Cough, No Sputum Production, No Chest Pain, No Palpitations, No Abdominal Pain, No Nausea, No Diarrhea and No Dysuria
Vital Signs / Physical Exam
Vital Signs
Vital Signs
Temp Pulse Resp BP Pulse Ox
98.3 F 78 17 120/58 96
03/06/24 07:43 03/06/24 07:43 03/06/24 07:43 03/06/24 08:59 03/06/24 07:43
Physical Exam
Constitutional: Comfortable
Eyes: Negative Pupils Equal
Cardiovascular: Regular Rate and S1/S2; Negative Murmur, Rub or Gallop
Pulmonary: Clear; Negative Wheezes, Rales or Rhonchi
Gastrointestinal: Soft, Non Tender, Non Distended and Normal Bowel Sounds
Extremities: Negative Edema
Neurological: Awake and Alert; Negative Oriented
Objective Data
Lab Data
Lab Results
03/06/24 08:04
PT 19.5 Sec (11.4-14.6) H 02/17/24 10:13
INR 1.67 02/17/24 10:13
APTT 25.1 Sec (23.4-35.0) 02/17/24 10:13
Estimated Creat Clear Inorganic Chemistry Teacher 03/06/24 06:00
Lactic Acid Cancelled 02/17/24 14:15
Total Bilirubin 1.3 mg/dl (0.2-1.3) 02/18/24 09:06
AST 26 U/L (17-59) 02/18/24 09:06
ALT 27 U/L (0-50) 02/18/24 09:06
Alkaline Phosphatase 78 U/L (38-126) 02/18/24 09:06
Most recent labs reviewed.
Micro Results:
02/28/24 20:50 Blood Culture - Final
Blood/Venous No Growth - Final Report
02/28/24 13:40 Blood Culture - Final
Blood/Venous No Growth - Final Report
02/19/24 14:20 Fungal Culture - Preliminary
Csf Culture in progress.
Positive cultures are reported as soon as detected.
Final report to follow in four to five weeks.
02/17/24 15:27 Fungal Culture - Preliminary
Csf Culture in progress.
Positive cultures are reported as soon as detected.
Final report to follow in four to five weeks.
02/22/24 21:02 Blood Culture - Final
Blood/Venous No Growth - Final Report
02/22/24 19:56 Blood Culture - Final
Blood/Venous No Growth - Final Report
02/17/24 10:13 Blood Culture - Final
Blood/Venous No Growth - Final Report
02/17/24 15:27 CSF Culture - Final
Csf No Growth After 5 Days - Final Report
Gram Stain - Final
02/17/24 10:13 Blood Culture - Final
Blood/Venous No Growth - Final Report
02/17/24 15:27 Meningitis/Encephalitis Panel (PCR) - Final
Csf
02/17/24 10:13 Influenza Types A & B (LEO) - Final
Nasal Swab Negative for Influenza A & B, NAAT
Negative results must be combined with clinical observations
and patient history.
Nucleic Acid Amplification test (NAAT)performed on the
[employer] platform.
Speech therapy recommendations reviewed.
Abnormal EEG - diffuse cortical slowing.
[2024-03-06 09:34] LABS: Blood Urea Nitrogen 68 mg/dl (9-20); Calcium 9.3 mg/dl (8.4-10.2); Carbon Dioxide 19 mmol/L (22-30); Chloride 113 mmol/L (98-107); Estimated Creatinine Clearance 49 ml/min; Glucose 97 mg/dl (70-99); Potassium 3.6 mmol/L (3.5-5.1); Sodium 146 mmol/L (135-145); eGFR > 60.00
--- NOTE | 2024-03-06 10:09 | CM ---
Reviewed chart, spoke with attending who confirmed that patient is medically stable for discharge. Placed a call to Janay in admissions at [facility] who stated that she can accept patient today.
#For report [phone]
#for fax [phone]
Plan: Case management will continue to follow and assist with discharge planning. HOWE.
[2024-03-06 11:29] VITALS: BP 108/52
--- NOTE | 2024-03-06 13:40 | W.DCSUMMARY ---
Discharge Summary
Discharge Data
Date of Admission: 02/17/24
Date of Discharge: 03/06/24
-
Pending Results: Yes
Additional Pending Results:
Fungal Culture
Hospital Course
Discharging Physician :
Disposition : Acute Rehab ([facility])
Primary care physician : Dr. Romulo Velazquez
Principal Discharge diagnosis : Relapsed Cryptococcal Meningitis/PIIRS
Chronic Discharge diagnosis : Left cerebral peduncle infarct, DVT, Hyperlipidemia, cervical spine degenerative joint disease, thyroid nodule (non-malignant), former smoker
Hospital Course : This is an 78 year old man who presented to the ER with concerns of altered mental status and fever from [facility]. He was recently admitted at for cryptococcal meningitis and CVA (acute ischemic stroke in the left cerebral
peduncle). ID was consulted and repeat LP was done which had findings suggestive of relapse of cryptococcal meningitis. He was restarted on amphotericin B and flucytosine. Flucytosine levels were sent out and results are nontoxic range.
Patient's mental status was improving and then reverted back to altered mental status. Brain MRI done on 02/19 which showed a new CVA and posterior midbrain. Patient had new right upper extreme MIDA weakness and right exophoria. Neurology
consulted and ordered suspected cryptococcus meningitis related vasculopathy. EEG abnormal but no seizure activity. Patient continued to be in febrile state and he was covered with antibiotic for possible aspiration pneumonia patient remained
encephalopathic with waxing and waning mentation with limited oral intake. VFS exam done with patient failing study. Dobbhoff tube placed and TPN started. With continuing confusion/fevers. ID suspected possible IRIS and started dexamethasone.
Flucytosine was compounded to liquid form through NGT due to patient unable to swallow. Patient also had an episode of NSVT and was monitored with repeat electrolyte checks WNL. Patient's and started to become hypothermic and blood cultures were
sent which were negative. He had some agitation for which risperidone was given. Patient started to improve with his mentation and repeat VFS exam showed okay for pureed diet with mod thick fluids. Flucytosince discontinued and fluconaze high dose
started. Dexamethasone taper started. Patient clinically improving.
Patient stable for discharge to acute rehab with dexamethasone taper and fluconazole. Follow up with ID OP with CMP before visit.
Important imaging findings :
Brain MRI on 02/19: New small 0.8 cm acute infarct in the posterior midbrain. New T2/FLAIR hyperintense signal in the posterior left temporal lobe, nonspecific but could be on the basis of a mild encephalitis.
CXR 02/19: New left upper extremity PICC line in place with the catheter tip projecting over the SVC.
2. Mild opacity in the posterior basilar left lower lobe which appears unchanged. Diagnostic possibilities are (1) subsegmental atelectasis/scarring or (2) mild pneumonia.
3. Mild cardiomegaly without evidence for acute pulmonary edema.
4. Mild tortuosity and possible aneurysmal dilatation of the thoracic aorta which appears unchanged.
Brain MRI 02/21: 9 mm subacute nonhemorrhagic infarct in the posterior medial aspect. There is mild diffuse cortical and cerebellar atrophy with mild nonspecific white matter changes as described above. The more focal area of increased signal on
FLAIR imaging in the white matter of the posterior left temporal lobe is not associated with abnormal contrast enhancement. This area is nonspecific and may be ischemic or degenerative in origin.
Procedure findings : LP on 02/18- Opening pressure obtained of 9 cm
Discharge Plan
-
Patient Disposition: Acute Rehab Facility
Discharge Diagnosis/Procedures: Post-infectious inflammatory response syndrome Due to Cryptococcus Meningitis
Acute kidney injury
TME
Aspiration pneumonitis
Hypokalemia
Hypertension
Hyperlipidemia
Moderate aortic stenosis
Right subclavian thrombosis
History of SIADH
Ex-smoker
Condition: Good
Diet: 2 Gram Sodium
Activity: As tolerated
Driving Restrictions: No driving
Blood Work: CMP 1 week before Infectious Disease Office () visit.
Other Services: PT and OT
Activity Restrictions/Additional Instructions:
Follow-up with cardiology for aortic stenosis
Referrals:
Martynec,Romulo, MD [Family Provider] -
Naa John MD [Active] - in six weeks
Prescriptions:
New
carvedilol 6.25 mg Tablet
6.25 mg PO BID 30 Days Qty: 60 0RF
atorvastatin 10 mg Tablet
10 mg PO DAILY 30 Days Qty: 30 0RF
fluconazole 200 mg Tablet
800 mg PO DAILY 30 Days Qty: 30 0RF
amlodipine 5 mg Tablet
5 mg PO DAILY 30 Days Qty: 30 0RF
risperidone 0.5 mg Tablet
0.5 mg PO DAILY@1800 30 Days Qty: 30 0RF
lansoprazole 30 mg Tablet,Disintegrat, Delay Rel
30 mg PO DAILY 30 Days Qty: 30 0RF
dexamethasone 4 mg Tablet
10 mg PO DAILY 3 Days Qty: 8 0RF
Rx Instructions:
from 03/06-03/09
dexamethasone 4 mg Tablet
8 mg PO DAILY 7 Days Qty: 14 0RF
Rx Instructions:
from 03/10-03/16
dexamethasone 2 mg Tablet
2 mg PO DAILY 7 Days Qty: 7 0RF
Rx Instructions:
from 03/31-04/06
dexamethasone 4 mg Tablet
6 mg PO DAILY 7 Days Qty: 11 0RF
Rx Instructions:
from 03/17-03/23
dexamethasone 4 mg Tablet
4 mg PO DAILY 7 Days Qty: 7 0RF
Rx Instructions:
from 03/24-03/30
dexamethasone 0.5 mg Tablet
1 mg PO DAILY 7 Days Qty: 14 0RF
Rx Instructions:
from 04/07-04/13. Stop taper on 04/14
Continued
aspirin 81 mg Tablet,Chewable
81 mg PO DAILY Qty: 30 0RF
atorvastatin 20 mg Tablet
20 mg PO DAILY Qty: 30 0RF
Eliquis 5 mg tablet
5 mg PO BID Qty: 1 0RF
Rx Instructions:
Start on 02/16 and treat for a month
sennosides [Senokot] 8.6 mg Tablet
17.2 mg PO HS
acetaminophen [Tylenol] 325 mg Tablet
650 mg PO Q4HPRN PRN (Reason: mild pain)
therapeutic multivitamin Tablet
1 tab PO DAILY
bisacodyl [Dulcolax (bisacodyl)] 10 mg Suppository
10 mg SD DAILYPRN PRN (Reason: constipation)
docusate sodium [Colace] 100 mg Capsule
100 mg PO BID
bisacodyl [Dulcolax (bisacodyl)] 5 mg Tablet,Delayed Release (Dr/Ec)
10 mg PO DAILYPRN PRN (Reason: constipation)
Discontinued
magnesium oxide 500 mg magnesium Tablet
500 mg PO BID Qty: 30 0RF
fluconazole [Diflucan] 200 mg tablet
400 mg PO DAILY Qty: 1 0RF
Rx Instructions:
400 mg PO qday for 6 weeks then will decrease to 200 mg PO qday for another 11 months
pantoprazole [Protonix] 20 mg Tablet,Delayed Release (Dr/Ec)
20 mg PO DAILY
sodium chloride 1,000 mg Tablet,Soluble
1,000 mg PO DAILY
Discharge Orders:
Discharge Patient (As Directed); Ordered 03/06/24
Ordered By: Jennifer Woodard
Discharge Date and Time
Print Language: CZECH
[2024-03-06 14:53] VITALS: BP 121/63
== END 2024-03-06 16:12 | DRG 97 ==
LOC: 3 WEST ACU 14:27
PROVIDERS: Hospitalist; Nurse Practitioner Family; Radiology Diagnostic Radiology; Radiology Neuroradiology; Student in an Organized Health Care Education/Training Program; ADMITTING PHYSICIAN Internal Medicine; ATTENDING PHYSICIAN Hospitalist; CONSULT PHYSICIAN Psychiatry & Neurology Neurology; CONSULT PHYSICIAN Student in an Organized Health Care Education/Training Program; EMERGENCY PHYSICIAN Student in an Organized Health Care Education/Training Program; FAMILY PHYSICIAN Internal Medicine Geriatric Medicine; OTHER PHYSICIAN Internal Medicine Cardiovascular Disease; OTHER PHYSICIAN Psychiatry & Neurology Psychiatry
PROC: 009U3ZX Drainage of Spinal Canal, Percutaneous Approach, Diagnostic (ICD-10-PCS; 2024-02-17)
PROC: B01B1ZZ Fluoroscopy of Spinal Cord using Low Osmolar Contrast (ICD-10-PCS; 2024-02-17)
PROC: 02HV33Z Insertion of Infusion Device into Superior Vena Cava, Percutaneous Approach (ICD-10-PCS; 2024-02-20)
PROC: 0DH67UZ Insertion of Feeding Device into Stomach, Via Natural or Artificial Opening (ICD-10-PCS; 2024-02-26)
DX: B45.1 Cerebral cryptococcosis (principal); G04.90 Encephalitis and encephalomyelitis, unspecified; G92.8 Other toxic encephalopathy; I63.9 Cerebral infarction, unspecified; J69.0 Pneumonitis due to inhalation of food and vomit; I82.B11 Acute embolism and thrombosis of right subclavian vein; E22.2 Syndrome of inappropriate secretion of antidiuretic hormone; I47.20 Ventricular tachycardia, unspecified; E87.20 Acidosis, unspecified; F05 Delirium due to known physiological condition; N17.9 Acute kidney failure, unspecified; R47.01 Aphasia; D89.3 Immune reconstitution syndrome; E03.9 Hypothyroidism, unspecified; E78.00 Pure hypercholesterolemia, unspecified; E04.2 Nontoxic multinodular goiter; I10 Essential (primary) hypertension; H34.83 Tributary (branch) retinal vein occlusion; N40.0 Benign prostatic hyperplasia without lower urinary tract symptoms; R29.810 Facial weakness; E83.51 Hypocalcemia; G89.29 Other chronic pain; G31.9 Degenerative disease of nervous system, unspecified; E87.6 Hypokalemia; E88.09 Other disorders of plasma-protein metabolism, not elsewhere classified; R45.1 Restlessness and agitation; R44.1 Visual hallucinations; T38.0X5A Adverse effect of glucocorticoids and synthetic analogues, initial encounter; Y92.239 Unspecified place in hospital as the place of occurrence of the external cause; I08.0 Rheumatic disorders of both mitral and aortic valves; M47.812 Spondylosis without myelopathy or radiculopathy, cervical region; R26.2 Difficulty in walking, not elsewhere classified; Z86.73 Personal history of transient ischemic attack (TIA), and cerebral infarction without residual deficits; Z86.0100 Personal history of colon polyps, unspecified; Z87.19 Personal history of other diseases of the digestive system; Z86.61 Personal history of infections of the central nervous system; Z79.82 Long term (current) use of aspirin; Z79.01 Long term (current) use of anticoagulants; Z87.891 Personal history of nicotine dependence; Z11.52 Encounter for screening for COVID-19
CPT/HCPCS: 93308; 62328; 70450; 70551; 70553; 71045; 74018; 74230; 80048; 80053; 81003; 81015; 82040; 82945; 82962; 83605; 83735; 84100; 84132; 84157; 84300; 84484; 85025; 85027; 85610; 85730; 87015; 87040; 87070; 87102; 87205; 87327; 87483; 87502; 87811; 89051; 92526; 92610; 92611; 93005; 95816; 96360; 97110; 97116; 97163; 97164; 97167; 97530; 97535; 99285; A9575; J0289

== ENCOUNTER 2024-03-26 06:23 | Outpatient (RCR) | payer MEDICARE, SELFPAY | END 2024-03-26 23:59 | disposition home or self-care (01) | LOC: ROT 06:23 | PROVIDERS: ATTENDING PHYSICIAN Physician Assistant Surgical; FAMILY PHYSICIAN Internal Medicine Geriatric Medicine | DX: I69.351 Hemiplegia and hemiparesis following cerebral infarction affecting right dominant side (principal); I69.322 Dysarthria following cerebral infarction; I69.398 Other sequelae of cerebral infarction; Z73.6 Limitation of activities due to disability | CPT/HCPCS: 97163; 97167; 97530 ==

== ENCOUNTER → 2024-03-31 16:16 | Outpatient (REF) | payer MEDICARE, SELFPAY ==
[2024-03-31 16:43] LABS: Urine Albumin Negative (Neg - Trace); Urine Bilirubin Negative (Negative); Urine Character Clear (Clear); Urine Color Yellow; Urine Glucose Negative (Negative); Urine Ketone Negative (Negative); Urine Leukocyte Negative (Negative); Urine Nitrite Negative (Negative); Urine Occult Blood Negative (Negative); Urine Specific Gravity 1.015 (<1.030); Urine Urobilinogen Negative (Neg - 1+)
== END ==
LOC: REG 16:16
PROVIDERS: ATTENDING PHYSICIAN Nurse Practitioner Family
DX: N40.1 Benign prostatic hyperplasia with lower urinary tract symptoms (principal); R35.0 Frequency of micturition
CPT/HCPCS: 81003; 87086

== ENCOUNTER 2024-04-09 13:49 | Outpatient (RCR) | payer MEDICARE, SELFPAY | END 2024-04-09 23:59 | disposition home or self-care (01) | LOC: RST 13:49 | PROVIDERS: ATTENDING PHYSICIAN Physician Assistant Surgical; FAMILY PHYSICIAN Internal Medicine Geriatric Medicine | DX: I69.351 Hemiplegia and hemiparesis following cerebral infarction affecting right dominant side (principal); Z73.6 Limitation of activities due to disability; I69.391 Dysphagia following cerebral infarction; R13.12 Dysphagia, oropharyngeal phase; R13.10 Dysphagia, unspecified; I69.328 Other speech and language deficits following cerebral infarction | CPT/HCPCS: 92523; 92526; 92610; 97110; 97112; 97116; 97530; 97535 ==

== ENCOUNTER → 2024-04-17 11:06 | Outpatient (REF) | payer MEDICARE, SELFPAY ==
[2024-04-17 17:00] LABS: Urine Albumin Trace (Neg - Trace); Urine Bilirubin Negative (Negative); Urine Character Clear (Clear); Urine Color Yellow; Urine Glucose Negative (Negative); Urine Ketone Negative (Negative); Urine Leukocyte Negative (Negative); Urine Nitrite Negative (Negative); Urine Occult Blood Negative (Negative); Urine Urobilinogen Negative (Neg - 1+)
== END ==
LOC: CLAB 11:06
PROVIDERS: ATTENDING PHYSICIAN Specialist
DX: N39.0 Urinary tract infection, site not specified (principal)
CPT/HCPCS: 81003; 87086

== ENCOUNTER 2024-04-19 15:54 | Inpatient (IN) | payer MEDICARE, SELFPAY ==
[2024-04-19] VITALS (12 sets, daily range): BP systolic 101–125; BP diastolic 55–79; BMI 20.2; BMI 20.7
--- NOTE | 2024-04-19 12:06 | ED.GENMED ---
History of Present Illness
<Enid Yadav MD, Resident - Last Filed: 04/19/24 15:26>
General
Chief Complaint: Weakness
Time Seen by Provider: 04/19/24 11:06
History of Present Illness
History of Present Illness:
78-year-old male with past medical history of relapse of cryptococcal meningitis/PIIRS, left cerebral peduncle infarct, DVT presenting to ED with complaint of weakness. Patient's is concerned for progressive weakness starting about 1 week
ago. Patient noticed blood in urine on , saw his urologist and was started on finasteride. Was advised to follow-up on Saturday but developed fever yesterday and advised him to come to the hospital today. Denies nausea, vomiting, cough,
abdominal pain, diarrhea, chest pain. Per , patient has had increased frequency and sneezing. Patient was admitted for 8 weeks at the outside hospital relapse of cryptococcal meningitis for which he was treated with fluconazole and
dexamethasone. Currently on fluconazole but does not take dexamethasone. Patient had weakness after his prior stroke in the left cerebral peduncle but states he has been more weak recently.
Past History
<Enid Yadav MD, Resident - Last Filed: 04/19/24 15:26>
Past History
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
bowel disease, BPH) and Other (cryptococcal meningitis)
ED Past Surgical History: Appendectomy and Other (Right lobe thyroid resection)
Social History
Tobacco: Other
Alcohol: Other
Drug: None
Personal:
Living: with family
Employment: Other
Family History
Family History: Other (Reviewed and noncontributory)
Review of Systems
<Enid Yadav MD, Resident - Last Filed: 04/19/24 15:26>
Review of Systems
Constitutional: Reports fever
EENT: Reports other (dry mouth)
Respiratory: Reports no symptoms
Cardiac: Reports no symptoms
ABD/GI: Reports no symptoms
: Reports frequency and bleeding
Musculoskeletal: Reports no symptoms
Skin: Reports no symptoms
Neurological: Reports weakness
Endocrine: Reports no symptoms
Hematologic/Lymphatic: Reports no symptoms
Psychiatric: Reports no symptoms
Phy Exam
<Enid Yadav MD, Resident - Last Filed: 04/19/24 15:26>
Physical Exam
Physical Exam:
GENERAL: Alert, in no apparent distress
EYE: pupils equal and reactive
NECK: Supple, no significant adenopathy.
ENT: o/p clr, mmm.
CARDIAC: Regular rate and rhythm.
LUNGS: Clear breath sounds bilaterally, hypoxemic, no wheezes/rales/rhonchi.
ABDOMEN: Soft, without focal tenderness, no r/g, no cvat
NEUROLOGICAL: Alert and oriented, no focal neuro deficits. Positive [id number]-[id number] test on the left side. Mild facial droop on right side. No meningismus.
SKIN: Warm and dry, skin intact.
MUSCULOSKELETAL: No edema, well perfused. LLE, RLE, LUE, RUE strength: 3/5.
PSYCH: Normal and appropriate interaction.
Course
<Enid Yadav MD, Resident - Last Filed: 04/19/24 15:26>
Orders/Labs/Results
Orders:
Orders
04/19/24 12:02
CR Chest - 2 Views Urgent
Comment:
Reason For Exam: fever and history of cryptococcal meningitis
04/19/24 12:07
Complete Blood Count/With Diff Urgent
Comprehensive Metabolic Panel Urgent
Blood Culture Routine
COY Source: Blood/Venous
Specimen Description:
04/19/24 12:08
Lactated Ringers [Lr] 500 ml IV BOLUS
04/19/24 12:15
COVID-19 Antigen Urgent
Source: Nasal Swab
Lactic Acid Urgent
Urinalysis Reflex To Culture Urgent
Date Specimen was Collected: 04/19/24
Time Specimen was Collected: 12:07
Influenza A+B Rapid Molecular Urgent
COY Source: Nasal Swab
Specimen Description:
04/19/24 13:13
Acetaminophen [Tylenol] 650 mg PO NOW STA
04/19/24 13:29
Type+Screen Urgent
04/19/24 13:49
ABO2 Urgent
BBK Wristband Number:
Associate notified that ABO2 has been ordered: LEON-ER
Date: 04/19/24
Time: 13:41
Woodworking Craftsman ID: [id number]
04/19/24 14:07
CT Chest Pe Study Urgent
Comment:
Reason For Exam: hypoxia and fever
04/19/24 14:12
Cortisol, Random Stat
Procalcitonin Urgent
PCT Algorithmm Indication: Respiratory
04/19/24 15:10
Heparin 5,100 units IV NOW STA
Nursing to Place Non Medication Order As Directed
Physician Order: PTT 6 hours after initial start of Heparin infusion
04/19/24 15:15
Heparin 48803 Units/250 ml 25,000 units in 250 ml IV PER PROTOCOL
Weight to be used for heparin protocol in kilograms (kg):: 63.7
Protocol:: DVT/PE
PTT Goal Range to be used:: PTT 73 to 111 seconds
Order type:: Initial
INITIAL Infusion Dose (UNITS/KG/hr) & then follow protocol:: 18 units/kg/hr
Infusion Dose in UNITS/hr & then follow protocol (UNITS/hr):: 1,100
INFUSION RATE in mL/hr & then follow protocol (mL/hr):: 11
For DVT/PE algorithm, re-bolus for low PTT?: Yes
PTT less than or equal to 64 seconds:: Re-bolus 80 units/kg (max 10,000units). Increase by 300 units/hr
(+ 3mL/hr)
PTT 64.1 to 72.9 seconds:: Re-bolus 40 units/kg (max 5,000 units). Increase by 100 units/hr
(+ 1mL/hr)
PTT 73 to 111 seconds:: Target Range. No change in rate.
PTT 111.1 to 130.9 seconds:: Decrease rate by 100 units/hr (- 1 mL/hr)
PTT 131 to 199.9 seconds:: HOLD for 1 hr. Then decrease by 200 units/hr (- 2mL/hr)
PTT greater than or equal to 200 seconds:: HOLD for 2 hrs & Notify Provider. Then decrease by 300 units/hr
(- 3mL/hr)
Lab follow-up:: Each change, PTT q6h until 2 consecutive are therapeutic. Then
PTT daily.
04/19/24 15:16
Admit/Transfer Patient As Directed
Co-Sign Provider:
Level of Care: Inpatient admission
Assign to:: Telemetry
Physician / Group: htay
Diagnosis: PE
Reason for Telemetry: Other
Other Reason for Telemetry: PE
Date to Stop Telemetry: 04/21/24
Time to Stop Telemetry: 11:00
Reason for Hospitalization: PE
Expected length of stay greater than two midnights?: Yes
ELOS- Estimated Length of Stay in days: 3
I certify the patient meets the requirements for IP care: Yes
04/19/24 15:17
PRN Pain Medication Management As Directed
May give lesser potent ordered pain med per pt: Yes
preference::
Protocol:: Medication orders for pain may be administered in a
manner that supports deferring to patient preference
when the pt is:
- Requesting an ordered lesser potent pain medication.
Least to most potent pain medications are defined
as: acetaminophen < NSAID < tramadol < opioids
(morphine, oxycodone, hydromorphone).
- Requesting a lesser dose of the same medication IF
ORDERED.
- Requesting a less intrusive route of administration
if both routes are prescribed by the provider (PO <
IV).
04/19/24 15:18
Code Status As Directed
Resuscitation Status: Full Code
04/19/24 15:22
PTT Urgent
Comment: Obtain baseline before beginning heparin infusion if not already collected
04/19/24 15:26
PULMONARY CONSULT Routine
Consulting Provider: Baltazar Rosas
Was physician already notified: Yes
04/21/24 11:00
DC Protocol for Telemetry ONCE
Abnormal Lab Results
04/19/24 04/19/24
12:07 12:15
RBC 2.41 L 10^6/uL
(4.70-6.10)
Hgb 8.3 L g/dL
(13.0-18.0)
Hct 24.5 L %
(39.0-52.0)
MCV 101.7 H fL
(80.0-94.0)
MCH 34.4 H pg
(27.0-31.0)
RDW 17.4 H %
(11.5-14.5)
Abs Immat Gran (auto) 0.5 H 10^3/uL
(0-0.05)
Absolute Neuts (auto) 6.7 H 10^3/uL
(1.4-6.5)
Immature Gran % 5.4 H %
(0-0.5)
Lymphocytes % 12.9 L %
(20.5-51.1)
BUN 24 H mg/dl
(9-20)
Lactic Acid 2.1 H mmol/L
(0.7-2.0)
Total Protein 5.4 L g/dl
(6.3-8.2)
Albumin 3.1 L g/dl
(3.5-5.0)
04/19/24 12:07
04/19/24 12:07
Vital Signs
Initial and Last Documented VS:
Initial Vital Signs
Temp Pulse Resp BP Pulse Ox
98.8 F 83 16 104/71 98
04/19/24 10:43 04/19/24 10:43 04/19/24 10:43 04/19/24 10:43 04/19/24 10:43
Last Documented Vital Signs
Temp Pulse Resp BP Pulse Ox
101.8 F H 83 16 101/66 96
04/19/24 13:13 04/19/24 10:43 04/19/24 10:43 04/19/24 16:00 04/19/24 16:15
<Juanjose H. Gualberto, DO - Last Filed: 04/19/24 17:35>
Orders/Labs/Results
Orders:
Orders
04/19/24 12:02
CR Chest - 2 Views Urgent
Comment:
Reason For Exam: fever and history of cryptococcal meningitis
04/19/24 12:07
Complete Blood Count/With Diff Urgent
Comprehensive Metabolic Panel Urgent
Blood Culture Routine
COY Source: Blood/Venous
Specimen Description:
04/19/24 12:08
Lactated Ringers [Lr] 500 ml IV BOLUS
04/19/24 12:15
COVID-19 Antigen Urgent
Source: Nasal Swab
Lactic Acid Urgent
Urinalysis Reflex To Culture Urgent
Date Specimen was Collected: 04/19/24
Time Specimen was Collected: 12:07
Influenza A+B Rapid Molecular Urgent
COY Source: Nasal Swab
Specimen Description:
04/19/24 13:13
Acetaminophen [Tylenol] 650 mg PO NOW STA
04/19/24 13:29
Type+Screen Urgent
04/19/24 13:49
ABO2 Urgent
BBK Wristband Number:
Associate notified that ABO2 has been ordered: LEON-ER
Date: 04/19/24
Time: 13:41
Woodworking Craftsman ID: [id number]
04/19/24 14:07
CT Chest Pe Study Urgent
Comment:
Reason For Exam: hypoxia and fever
04/19/24 14:12
Cortisol, Random Stat
Procalcitonin Urgent
PCT Algorithmm Indication: Respiratory
04/19/24 15:10
Heparin 5,100 units IV NOW STA
Nursing to Place Non Medication Order As Directed
Physician Order: PTT 6 hours after initial start of Heparin infusion
04/19/24 15:15
Heparin 35691 Units/250 ml 25,000 units in 250 ml IV PER PROTOCOL
Weight to be used for heparin protocol in kilograms (kg):: 63.7
Protocol:: DVT/PE
PTT Goal Range to be used:: PTT 73 to 111 seconds
Order type:: Initial
INITIAL Infusion Dose (UNITS/KG/hr) & then follow protocol:: 18 units/kg/hr
Infusion Dose in UNITS/hr & then follow protocol (UNITS/hr):: 1,100
INFUSION RATE in mL/hr & then follow protocol (mL/hr):: 11
For DVT/PE algorithm, re-bolus for low PTT?: Yes
PTT less than or equal to 64 seconds:: Re-bolus 80 units/kg (max 10,000units). Increase by 300 units/hr
(+ 3mL/hr)
PTT 64.1 to 72.9 seconds:: Re-bolus 40 units/kg (max 5,000 units). Increase by 100 units/hr
(+ 1mL/hr)
PTT 73 to 111 seconds:: Target Range. No change in rate.
PTT 111.1 to 130.9 seconds:: Decrease rate by 100 units/hr (- 1 mL/hr)
PTT 131 to 199.9 seconds:: HOLD for 1 hr. Then decrease by 200 units/hr (- 2mL/hr)
PTT greater than or equal to 200 seconds:: HOLD for 2 hrs & Notify Provider. Then decrease by 300 units/hr
(- 3mL/hr)
Lab follow-up:: Each change, PTT q6h until 2 consecutive are therapeutic. Then
PTT daily.
04/19/24 15:16
Admit/Transfer Patient As Directed
Co-Sign Provider:
Level of Care: Inpatient admission
Assign to:: Telemetry
Physician / Group: htay
Diagnosis: PE
Reason for Telemetry: Other
Other Reason for Telemetry: PE
Date to Stop Telemetry: 04/21/24
Time to Stop Telemetry: 11:00
Reason for Hospitalization: PE
Expected length of stay greater than two midnights?: Yes
ELOS- Estimated Length of Stay in days: 3
I certify the patient meets the requirements for IP care: Yes
04/19/24 15:17
PRN Pain Medication Management As Directed
May give lesser potent ordered pain med per pt: Yes
preference::
Protocol:: Medication orders for pain may be administered in a
manner that supports deferring to patient preference
when the pt is:
- Requesting an ordered lesser potent pain medication.
Least to most potent pain medications are defined
as: acetaminophen < NSAID < tramadol < opioids
(morphine, oxycodone, hydromorphone).
- Requesting a lesser dose of the same medication IF
ORDERED.
- Requesting a less intrusive route of administration
if both routes are prescribed by the provider (PO <
IV).
04/19/24 15:18
Code Status As Directed
Resuscitation Status: Full Code
04/19/24 15:22
PTT Urgent
Comment: Obtain baseline before beginning heparin infusion if not already collected
04/19/24 15:26
PULMONARY CONSULT Routine
Consulting Provider: Baltazar Rosas
Was physician already notified: Yes
04/21/24 11:00
DC Protocol for Telemetry ONCE
Abnormal Lab Results
04/19/24 04/19/24
12:07 12:15
RBC 2.41 L 10^6/uL
(4.70-6.10)
Hgb 8.3 L g/dL
(13.0-18.0)
Hct 24.5 L %
(39.0-52.0)
MCV 101.7 H fL
(80.0-94.0)
MCH 34.4 H pg
(27.0-31.0)
RDW 17.4 H %
(11.5-14.5)
Abs Immat Gran (auto) 0.5 H 10^3/uL
(0-0.05)
Absolute Neuts (auto) 6.7 H 10^3/uL
(1.4-6.5)
Immature Gran % 5.4 H %
(0-0.5)
Lymphocytes % 12.9 L %
(20.5-51.1)
BUN 24 H mg/dl
(9-20)
Lactic Acid 2.1 H mmol/L
(0.7-2.0)
Total Protein 5.4 L g/dl
(6.3-8.2)
Albumin 3.1 L g/dl
(3.5-5.0)
04/19/24 12:07
04/19/24 12:07
Vital Signs
Initial and Last Documented VS:
Initial Vital Signs
Temp Pulse Resp BP Pulse Ox
98.8 F 83 16 104/71 98
04/19/24 10:43 04/19/24 10:43 04/19/24 10:43 04/19/24 10:43 04/19/24 10:43
Last Documented Vital Signs
Temp Pulse Resp BP Pulse Ox
101.8 F H 83 16 101/66 96
04/19/24 13:13 04/19/24 10:43 04/19/24 10:43 04/19/24 16:00 04/19/24 16:15
<Enid Yadav MD, Resident - Last Filed: 04/19/24 15:26>
MDM/Problems Addressed
Differential Diagnosis Includes:
UTI/pyelonephritis
Pneumonia
Bacteremia
Meningitis
MDM/Problems Addressed:
# Fever and hematuria
- U/A
- CBC, CMP
- Chest x-ray
- BC x2
- Lactic acid
- IVF
<Enid Yadav MD, Resident - Last Filed: 04/19/24 15:26>
*Critical Care Note
Total Time (30-74mins, 75-104mins- exclusive of procedures): Not Applicable
ED Attending Note
<Enid Yadav MD, Resident - Last Filed: 04/19/24 15:26>
-
Portions of this chart may have been created with voice recognition software.� Occasional wrong word or��sound alike� substitutions may have occurred due to the inherent limitations of voice recognition software.
<Juanjose Burciaga DO - Last Filed: 04/19/24 17:35>
ED Attending Note
Patient seen and examined by attending physician: Yes
I performed a history and physical exam of patient and discussed management with resident, I reviewed resident's note and agree with documented findings and plan of care.: Yes
ED Attending Note:
I agree with Dr. Yadav's note.
Patient with complicated medical history is brought to the emergency room by his for evaluation of significant weakness. Over the past 2 or 3 days the patient has been noted to have increased generalized weakness and difficulty getting around.
He has had intermittent fevers. Patient was evaluated by urology and a urine was sent. They were awaiting urine culture to determine if he had a urinary tract infection. Patient was started on finasteride due to incomplete bladder emptying but
antibiotics are being withheld until culture results. Today the patient was even more weak and unable to support his own weight. Mild sneezing and cough noted by .
General: Awake, Alert, Oriented X3. No acute distress.
Vitals: Elevated rectal temp of 101, normotensive, normal heart rate, normal blood pressure
Head: Atraumatic
Eyes: Pupils equal, EOMI
Throat: Airway intact, no exudates, dry mucosa
Neck: Trachea midline
Lungs: Clear and equal b/l
Heart: Regular rate, no murmurs
Abd: Soft, Nontender, No pulsatile mass
Neuro: Right facial droop, generalized weakness
Skin: Warm, dry, no rash
Extremities: pulses equal b/l, no edema
NO source of fever clearly evident on cxr, urine, viral testing. CT of chest ordered to r/o pe or infiltrate. CT confirms b/l PE. Heparin infusion started. Pt will be admitted to hospitalist. Pt not a candidate for discharge with fever, clot
burden.
Discharge Plan
Departure
Patient Disposition: Admit
Date of Disposition: 04/19/24
Time of Disposition: 15:15
Admit to: Med/Surg
Presentation/result/management discussed w/ accepting MD/DO: Hospitalist
Condition: Fair
Discharge Problem:
Pulmonary embolism, bilateral
Interventions
Interventions:
*Risk Screen - Suicide Last Done: 04/19/24 10:43
*Neglect/Abuse Screening Last Done: 04/19/24 10:43
ED- Cardiac Assessment Last Done: 04/19/24 11:42
ED- Neurological Assessment Last Done: 04/19/24 11:42
ED- Pulmonary Assessment Last Done: 04/19/24 11:42
[2024-04-19] MEDS: LR 500 IV (12:24)
[2024-04-19 12:35] LABS: Urine Albumin Trace (Neg - Trace); Urine Bilirubin Negative (Negative); Urine Character Clear (Clear); Urine Color Yellow; Urine Glucose Negative (Negative); Urine Ketone Negative (Negative); Urine Leukocyte Negative (Negative); Urine Nitrite Negative (Negative); Urine Occult Blood Negative (Negative); Urine Specific Gravity 1.015 (<1.030); Urine Urobilinogen Negative (Neg - 1+)
[2024-04-19 12:37] LABS: Hematocrit 24.5 % (39.0-52.0); Hemoglobin 8.3 g/dL (13.0-18.0); Mean Corp Hgb Conc. 33.9 g/dL (33.0-37.0); Mean Corpuscular Hgb 34.4 pg (27.0-31.0); Mean Corpuscular Volume 101.7 fL (80.0-94.0); Mean Platelet Volume 9.9 fL (7.4-10.4); Platelet Count 177 10^3/uL (130-400); Red Blood Cell Count 2.41 10^6/uL (4.70-6.10); Red Cell Dist. Width 17.4 % (11.5-14.5); White Blood Cell Count 9.1 10^3/uL (4.8-10.8)
[2024-04-19 12:45] LABS: Lactic Acid 2.1 mmol/L (0.7-2.0)
[2024-04-19 12:46] LABS: ALT (SGPT) 29 U/L (0-50); AST (SGOT) 27 U/L (17-59); Albumin 3.1 g/dl (3.5-5.0); Alkaline Phosphatase 100 U/L (38-126); Blood Urea Nitrogen 24 mg/dl (9-20); Calcium 8.7 mg/dl (8.4-10.2); Carbon Dioxide 27 mmol/L (22-30); Chloride 104 mmol/L (98-107); Estimated Creatinine Clearance 59 ml/min; Glucose 99 mg/dl (70-99); Potassium 3.5 mmol/L (3.5-5.1); Sodium 139 mmol/L (135-145); Total Bilirubin 0.5 mg/dl (0.2-1.3); Total Protein 5.4 g/dl (6.3-8.2); eGFR > 60.00
[2024-04-19 12:49] LABS: % Basophils 0.8 % (0-2); % Eosinophils 0.8 % (0-6); % Immature Granulocytes 5.4 % (0-0.5); % Lymphocytes 12.9 % (20.5-51.1); % Monocytes 6.5 % (1.7-9.3); % Neutrophils 73.6 % (42.2-75.2); Absolute Basophils 0.1 10^3/uL (0-0.2); Absolute Eosinophils 0.1 10^3/uL (0-0.7); Absolute Immature Granulocytes 0.5 10^3/uL (0-0.05); Absolute Lymphocytes 1.2 10^3/uL (1.2-3.4); Absolute Monocytes 0.6 10^3/uL (0.1-0.6); Absolute Neutrophils 6.7 10^3/uL (1.4-6.5); Nucleated Red Blood Cells % 0.4 % (-)
[2024-04-19 13:02] LABS: COVID-19 Antigen Negative (Negative)
[2024-04-19] MEDS: TYLENOL 650 MG PO (13:13)
[2024-04-19 14:59] LABS: Procalcitonin 0.16 ng/ml (0.0-0.25)
[2024-04-19 15:40] LABS: APTT 30.8 Sec (23.4-35.0)
--- NOTE | 2024-04-19 15:51 | HPS.HSE ---
Family Physician
-
Family Physician: Romulo Velazquez
Chief Complaint
-
weakness and spiked fever
History of Present Illness
HPI
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
- is concerned for progressive weakness starting about 1 week ago.
- Patient noticed blood in urine on , saw his urologist and was started on finasteride
- onset fever yesterday and advised him to come to the hospital today.
Patient was admitted for 8 weeks at the outside hospital relapse of cryptococcal meningitis for which he was treated with fluconazole and dexamethasone. Currently on fluconazole but no longer take dexamethasone as of 04/04/24
ROS:
Denies nausea, vomiting, cough, abdominal pain, diarrhea, chest pain.
Medical History
Past Medical History
Past Medical History: Reports CVA (left cerebral peduncle)
Additional Past Medical History:
hyperlipidemia, cervical spine degenerative joint disease, thyroid nodule (non-malignant), former smoker
Past Surgical History: Reports Appendectomy
Additional Past Surgical History:
Appendectomy, partial thyroidectomy
Social History
Tobacco: Former Smoker
Alcohol: None
Drug: None
Personal:
Family History
Family History: Not pertinent
Allergies / Home Medications
Allergies reflects when Allergies were last updated in [employer].
Home Medications with original date entered in [employer]
Allergy/Medication List:
Home Medications
�Medication �Instructions �Recorded
apixaban 5 mg tablet (Eliquis) 5 mg PO BID #1 tab 02/13/24
aspirin 81 mg chewable tablet 81 mg PO DAILY #30 tabs 02/13/24
atorvastatin 20 mg tablet 20 mg PO DAILY High Cholesterol 02/13/24
#30 tabs
fluconazole 200 mg tablet 400 mg (2 x 200 mg) PO DAILY #1 tab 02/13/24
(Diflucan)
magnesium oxide 500 mg PO BID #30 tabs 02/13/24
acetaminophen 325 mg tablet 650 mg PO Q4HPRN PRN mild pain 02/17/24
(Tylenol)
bisacodyl 10 mg rectal suppository 10 mg ND DAILYPRN PRN constipation 02/17/24
(Dulcolax (bisacodyl))
bisacodyl 5 mg tablet,delayed 10 mg PO DAILYPRN PRN constipation 02/17/24
release (Dulcolax (bisacodyl))
docusate sodium 100 mg capsule 100 mg PO BID 02/17/24
(Colace)
pantoprazole 20 mg tablet,delayed 20 mg PO DAILY 02/17/24
release (Protonix)
sennosides 8.6 mg tablet (Senokot) 17.2 mg PO HS 02/17/24
sodium chloride 1,000 mg soluble 1,000 mg PO DAILY 02/17/24
tablet
therapeutic multivitamin 1 tab PO DAILY 02/17/24
Allergies
Allergy/AdvReac Type Severity Reaction Status Date / Time
No Known Allergies Allergy Verified 01/25/24 14:02
Review of Systems
-
Constitutional: Reports No Symptoms
EENT: Reports No Symptoms
Respiratory: Reports No Symptoms
Cardiac: Reports No Symptoms
Abdomen/GI: Reports No Symptoms
: Reports No Symptoms
Musculoskeletal: Reports No Symptoms
Skin: Reports No Symptoms
Neurological: Reports Weakness
Endocrine: Reports No Symptoms
Hematologic/Lymphatic: Reports No Symptoms
Psych: Reports No Symptoms
Physical Exam
Vital Signs
Vital Signs
Temp Pulse Resp BP Pulse Ox
101.8 F H 83 16 101/55 94
04/19/24 13:13 04/19/24 10:43 04/19/24 10:43 04/19/24 15:00 04/19/24 15:15
Physical Exam
General: Well Developed, Well Nourished and No Apparent Distress
HEENT: NormoCephalic, Moist mucous membranes and Atraumatic
Respiratory: Clear
Cardiac: S1/S2 and Regular Rhythm; No Murmur or Rub
GI: Soft, Non Tender, Non Distended and Normal Bowel Sounds; No Organomegaly
Rectal: Deferred by Provider
Musculoskeletal: No Clubbing, No Cyanosis and No Edema
Skin: No Rash
Neuro: Nonfocal/grossly intact
Laboratory Results
-
04/19/24 12:07
04/19/24 12:07
Laboratory Results
APTT 30.8 Sec (23.4-35.0) 04/19/24 15:22
Lactic Acid 2.1 mmol/L (0.7-2.0) H 04/19/24 12:15
Total Bilirubin 0.5 mg/dl (0.2-1.3) 04/19/24 12:07
AST 27 U/L (17-59) 04/19/24 12:07
ALT 29 U/L (0-50) 04/19/24 12:07
Alkaline Phosphatase 100 U/L (38-126) 04/19/24 12:07
Data Reviewed
-
Diagnostic Radiology: Report Reviewed by me
CT Scan: Report Reviewed by me
Medical Tests (Nuc Med, Echo, EKG etc): Report Reviewed by me
Lab Data: Labs Reviewed by me
Old Records: Reviewed
Impression/Plan
-
Laboratory Tests
03/20/24 04/19/24 04/19/24
09:15 12:07 12:15
Hgb 11.3 L 8.3 L
MCV 93.7 101.7 H
Potassium 3.5
eGFR > 60.00
Albumin 3.1 L
Procalcitonin 0.16
Leukocyte Esterase Rfl Negative
SARS-CoV-2 Antigen Negative
CXR
There is a trace right pleural effusion with likely adjacent atelectasis.
04/19/24 CT Chest PE Study
1. There is extensive pulmonary embolus which extends from the distal main pulmonary artery into the left main pulmonary artery and segmental left-sided pulmonary arteries. There is also thrombus within the distal right main pulmonary artery which
extends into the truncus anterior, interlobar artery as well as the segmental right-sided pulmonary arteries. There are findings suggestive of slight right heart strain with mild flattening of the interventricular septum and an RV-LV ratio of 0.9.
2. There is right greater than left bibasilar atelectasis with a trace right-sided pleural effusion.
03/20/24 US Periph Venous UPPER Ext RT
1. No evidence of right upper extremity DVT.
2. Right upper extremity DVT seen on prior ultrasound dated 02/10/2024 has resolved.
ASSESSMENT & PLAN
Progressive weakness ? Steroid WDS
Last dose of Decadron was on 04/14/24
- marginal hypokalemia K 3.5
- check random cortisol and in AM
- await ID input ref to resume low dose Steroids for possible iatrogenic relative steroid dependency and to taper very slowly !
- PT/OT
Extensive b/l pulmonary embolus
Spiked fever suspect non infectious fever due to acute extensive PE
CTC suggestive of slight RH strain with mild flattening of the interventricular septum and an RV-LV ratio of 0.9
HX Rt UEx DVT involving rt subclavian,axillary and proximal basilar vein on 02/09
03/20/24 No evidence of right upper extremity DVT per US Periph Venous UPPER Ext RT
- agree with Heparin gtt
- ECHO in AM
- check b/l Leg US
- Pul consult
HX postinfectious inflammatory response syndrome due to Crypto Meningitis
HX completion of 4 weeks of induction therapy with amphotericin B and flucytosine.
Report repeat CSF cultures obtained on 02/16 remain negative
HX high-dose of fluconazole for consolidation therapy-800 mg fluconazole OD
- cont fluconazole
- Hold Bactrim in view of no longer on Steroids
- on reduce the dose of atorvastatin to 10 mg/day when on fluconazole.
- on amlodipine dose reduced to 5 mg once a day.
- s/p weekly taper dose of dexamethasone - last dose was on 04/14 Dex 1 mg Qday
- ID consulted
S/P acute Midbrain ischemic stroke on 02/20/24 per MRI
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
Cryptococcus is known to associate d with stroke occasionally, no modifiable risk factors from ID perspective
- above complicated with Right upper extreme weakness and right eye lateral gaze palsy
- Repeat VSF and per ST: puree diet with mod thick fluids laura last admission
Benign Hypertension
- agree with continue Coreg 6.25mg BID, monitor HR
- Prior Norvasc was not listed
- Prior Hydralazine was not listed
HX Episodic NSVT
- KCL 40 PO for low marginal K at 3.5
- Monitor electrolytes
Hyperlipidemia
- Continue atorvastatin
Thyroid nodule
- followed by endocrine but apparently discharged by them--biopsy in 2022 was negative--TSH WNL
DVT Px: Heparin gtt
Full code
IP TLM
[2024-04-19 16:33] LABS: Cortisol, Random 14.5 ug/dl
[2024-04-19] MEDS: HEPARIN 5100 UNITS IV (16:38)
[2024-04-19] MEDS: HEPARIN 25000 UNITS/250 ML IV (16:44)
--- NOTE | 2024-04-19 18:31 | PTCARENOTE ---
Patient admitted from ER into room 412-02. Patient with heparin GTT at 1100 units/hour. Due for PTT at 1044pm. Educated patient and on use of call andrews and TV and bed controls. Verbalize understanding of teaching. Vital signs stable. Resting in
bed at this time with at bedside without complaint.
[2024-04-19] MEDS: REMERON 7.5 MG PO (20:07)
[2024-04-20 03:34] VITALS: BP 134/96
[2024-04-20 05:20] LABS: Hematocrit 24.5 % (39.0-52.0); Hemoglobin 8.1 g/dL (13.0-18.0); Mean Corp Hgb Conc. 33.1 g/dL (33.0-37.0); Mean Corpuscular Hgb 34.6 pg (27.0-31.0); Mean Corpuscular Volume 104.7 fL (80.0-94.0); Mean Platelet Volume 9.8 fL (7.4-10.4); Platelet Count 191 10^3/uL (130-400); Red Blood Cell Count 2.34 10^6/uL (4.70-6.10); Red Cell Dist. Width 17.5 % (11.5-14.5); White Blood Cell Count 8.4 10^3/uL (4.8-10.8)
[2024-04-20 05:37] LABS: APTT 97.2 Sec (23.4-35.0)
[2024-04-20 06:12] LABS: Cortisol, Random 15.4 ug/dl
[2024-04-20 07:35] VITALS: BP 131/73
[2024-04-20] MEDS: DIFLUCAN 800 MG PO (09:14)
[2024-04-20] MEDS: LOW STRENGTH ASPIRIN 81 MG PO (09:14)
[2024-04-20] MEDS: LIPITOR 10 MG PO (09:14)
[2024-04-20] MEDS: PROSCAR 5 MG PO (09:14)
[2024-04-20] MEDS: RITALIN 10 MG PO ×2 (09:14→12:07)
[2024-04-20] MEDS: COREG 3.125 MG PO (09:14)
--- NOTE | 2024-04-20 10:54 | CM ---
Addendum entered by Camelia Elizabeth 04/20/24 10:59:
Per CM consult, advanced directive needed
Per spouse, she is sure she has packet at home and will check. If another copy is needed, she will let CM know
Original Note:
Pt seen bedside w/ spouse. Initial assessment completed.
Pt lives w/ spouse in a 2STH- 2 steps to enter the home. Per spouse, she and pt only reside on the 1st flr of the home as the 2nd flr is incomplete.
Pt was prev independent, but recently began using a walker and transport WC. Spouse did not identify any additional DME in the home.
Spouse denies any SNF/VN in the past, however, pt engaged in acute rehab at [facility]
Address, point of contacts and insurances verified
PCP: Dr. Juanjose Velazquez
Pharmacy: [facility]
PT/OT eval pending, will await recs
Plan: Await PT/OT eval to determine d/c plan.
--- NOTE | 2024-04-20 11:21 | CON.ID ---
Consultation
-
Date/Time Consultation Requested: April 19, 2024 1734
Date/Time Consultation Performed: April 20, 2024 1120
Requesting Provider: Dr. Feliberto Bashir
Performing Provider: Dr. Kim Walton
Reason for Consultation: Recent cryptococcal meningitis with fever, weakness
Chief Complaint / Past History
Chief Complaint
Weakness
History of Present Illness
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
CVA, postinfectious inflammatory response syndrome requiring long steroid taper (02/24 to 04/14). He was dc'd to home from rehab 03/20. Had follow-up with ID, Dr. John 04/14, pt stable. Over the past week, his noted the patient has been
progressively getting weaker. He was not able to ambulate. She had to transfer him to the wheelchair. Finally she was not able to do it herself. In addition she noted patient was short of breath. + fever and chills since 04/16. + blood in
urine. She therefore brought him to the hospital last night. T=101.1. Chest CT shows extensive PE. No headache. No cough. No nausea vomit abdominal pain.
Past History
Additional Past Medical History:
Cryptococcal meningitis s/p 4 weeks 5FC+liposomal amphotericin, on
CVA
PICC-associated DVT
hyperlipidemia
cervical spine degenerative joint disease
thyroid nodule (non-malignant)
Appendectomy
Partial thyroidectomy
Additional Past Surgical History:
Appendectomy
Allergy History:
No Known Allergies Allergy (Verified 04/19/24 10:46)
Medications Reviewed: Yes
Current Antibiotics:
Fluconazole 800mg po qd
Social History
Tobacco: Former Smoker
Alcohol: None
Drug: None
Personal:
Employment: Retired
Family History
Family History: Not Pertinent
Review of Systems
Review of Systems
General: Fever, Chills and Change in Appetite
HEENT: Negative Sinus Problems, Headache or Pharyngitis
Respiratory: Dyspnea; Negative Cough
Gasteroenterology: Negative Nausea, Vomiting or Diarrhea
Genital / Urological: Negative Dysuria or Flank Pain
Endocrine: Weakness
Skin / Hair / Nails: Negative Rash
Neurological: Negative Dizziness
All systems: All other systems were reviewed and were negative
Vital Signs
Temp Pulse Resp BP Pulse Ox
98.7 F 76 18 131/73 94
04/20/24 07:35 04/20/24 09:14 04/20/24 07:35 04/20/24 09:14 04/20/24 07:35
Selected Entries
04/19/24
13:13
Temp 101.8 F H
Physical Exam
Physical Exam
Constitutional: Chronically Ill
Eyes: No Conjunctival Hemorrhage and Sclera Anicteric
Cardiovascular: Regular Rate and S1/S2
Pulmonary: Clear
Gastrointestinal: Soft, Non Tender, Non Distended and Normal Bowel Sounds
Genito-Urinary: Negative Coughlin or CVA Tenderness
Extremities: Negative Edema
Neurological: Awake and Other (drowsy); Negative Meningeal Signs
Lab / Diagnostic Study Results
04/20/24 05:10
04/19/24 12:07
Abs Immat Gran (auto) 0.5 10^3/uL (0-0.05) H 04/19/24 12:07
Absolute Neuts (auto) 6.7 10^3/uL (1.4-6.5) H 04/19/24 12:07
Absolute Lymphs (auto) 1.2 10^3/uL (1.2-3.4) 04/19/24 12:07
Absolute Monos (auto) 0.6 10^3/uL (0.1-0.6) 04/19/24 12:07
Absolute Basos (auto) 0.1 10^3/uL (0-0.2) 04/19/24 12:07
Immature Gran % 5.4 % (0-0.5) H 04/19/24 12:07
Neutrophils % 73.6 % (42.2-75.2) 04/19/24 12:07
Lymphocytes % 12.9 % (20.5-51.1) L 04/19/24 12:07
Monocytes % 6.5 % (1.7-9.3) 04/19/24 12:07
Eosinophils % 0.8 % (0-6) 04/19/24 12:07
Basophils % 0.8 % (0-2) 04/19/24 12:07
Lactic Acid 2.1 mmol/L (0.7-2.0) H 04/19/24 12:15
Procalcitonin 0.16 ng/ml (0.0-0.25) 04/19/24 14:12
Microbiology Results
Micro:
04/19/24 12:15 Influenza Types A & B (LEO) - Final
Nasal Swab Negative for Influenza A & B, NAAT
Negative results must be combined with clinical observations
and patient history.
Nucleic Acid Amplification test (NAAT)performed on the
[employer] platform.
04/19/24 12:07 Blood Culture - Pending
Blood/Venous
04/19/24 CT chest: There is extensive pulmonary embolus which extends from the distal main pulmonary artery into the left main pulmonary artery and segmental left-sided pulmonary arteries. There is also thrombus within the distal right main
pulmonary artery which extends into the truncus anterior, interlobar artery as well as the segmental right-sided pulmonary arteries. There are findings suggestive of slight right heart strain with mild flattening of the interventricular septum and
an RV-LV ratio of 0.9.
Assessment / Plan
# Extensive PE
# Fever due to PE
- Pulmonary on board.
-Follow temps.
# Hx Cryptococcal meningitis
-s/p 4 weeks flucytosine+liposomal amphotericin
-Continue current consolidation therapy fluconazole 800mg po daily x 8 weeks through 04/26, then maintenance fluconazole 200mg po daily.
# Acute on chronic weakness
-Multifactorial: PE, ?anemia
- Recent steroid taper (02/24 -04/14.
Steroid-induced myopathy - dx of exclusion
Check CK.
No objection to resuming steroid if no other etiology identified.
Care Review
Plan reviewed with: Physician (Discussed with Dr. Astudillo. )
[2024-04-20 11:40] VITALS: BP 123/72
--- NOTE | 2024-04-20 12:22 | CON.PUL ---
Consultation
Consultation Request
Date/Time Consultation Requested: 04/20/2024
Date/Time Consultation Performed: 04/20/2024
Requesting Provider: Dr. Bashir
Performing Provider: Dr. Helder Astudillo
Reason for Consultation: Acute pulmonary embolism
Medical History
-
History of Present Illness:
78-year-old man with history of recent cryptococcal meningitis on fluconazole, this was complicated by postinfectious inflammatory response syndrome, did develop ischemic infarct as well. Reports prior history of DVT who came to the emergency room
on 04/19/2024 complaining of progressing weakness for about a week. Did report some fevers yesterday.
Patient currently on fluconazole for his cryptococcal meningitis for which he was admitted to the hospital about 8 weeks ago. He did receive a dexamethasone course at that time.
Denies any leg edema
He has been more sedentary
He was found to have acute bilateral pulmonary embolism on CAT scan.
We were consulted on 04/20/2024 for evaluation
Past Medical History
Past Medical History: Other (See assessment)
Social History
Tobacco: Former Smoker
Alcohol: None
Drug: None
Personal:
Family History
Family History: Reviewed & Not Pertinent
Allergies / Home Medications
Allergies
Allergy/AdvReac Type Severity Reaction Status Date / Time
No Known Allergies Allergy Verified 04/19/24 10:46
Home Medications
�Medication �Instructions �Recorded �Confirmed �Last Taken �Type
aspirin 81 mg chewable tablet 81 mg PO DAILY #30 tabs 02/13/24 04/19/24 04/19/24 Rx
docusate sodium 100 mg capsule 100 mg PO BIDPRN PRN constipation 02/17/24 04/19/24 04/19/24 History
(Colace)
therapeutic multivitamin 1 tab PO DAILY Supplement 02/17/24 04/19/24 04/19/24 History
atorvastatin 10 mg tablet 10 mg PO DAILY High cholesterol 30 03/06/24 04/19/24 04/19/24 Rx
days #30 tabs
carvedilol 3.125 mg tablet 3.125 mg PO DAILY Blood pressure 03/19/24 04/19/24 04/19/24 Rx
30 days #30 tabs
fluconazole 200 mg tablet 800 mg (4 x 200 mg) PO DAILY 03/19/24 04/19/24 04/19/24 Rx
cryptococcal meningitis-until
04/26 38 days #152 tabs
mirtazapine 7.5 mg tablet 7.5 mg PO HS insomnia, depression 03/19/24 04/19/24 04/18/24 Rx
30 days #30 tabs
acetaminophen 500 mg tablet 1,000 mg PO Q6HPRN PRN mild pain 04/19/24 04/19/24 04/19/24 History
(Tylenol Extra Strength)
finasteride 5 mg tablet 5 mg PO DAILY Urinary Issue 04/19/24 04/19/24 04/19/24 History
methylphenidate HCl 5 mg tablet 10 mg PO BID@0800,1200 04/19/24 04/19/24 04/19/24 History
inattention, cva
sulfamethoxazole 800 1 tab PO BID Infection 04/19/24 04/19/24 04/19/24 History
mg-trimethoprim 160 mg tablet
(Bactrim DS)
Review of Systems
-
History Source: Patient
All other systems: Negative unless noted
Vitals / Labs / Diagnostic Testing
Vital Signs
Temp Pulse Resp BP Pulse Ox
98.7 F 76 18 131/73 94
04/20/24 07:35 04/20/24 09:14 04/20/24 07:35 04/20/24 09:14 04/20/24 07:35
Lab Data
04/20/24 05:10
04/19/24 12:07
Laboratory Results
04/19/24 04/19/24 04/20/24
15:22 22:54 05:10
APTT 30.8 111.0 H 97.2 H
Microbiology
04/19/24 12:15 Nasal Swab Influenza Types A & B (LEO) - Final
Negative for Influenza A & B, NAAT
Negative results must be combined with clinical observations
and patient history.
Nucleic Acid Amplification test (NAAT)performed on the
[employer] platform.
Diagnostic Testing:
Physical Exam
-
HEENT: Normocephalic
Cardiovascular: S1/S2
Respiratory: Clear and Non-Labored Respirations
GI: Soft and Non Distended
Neurology: Awake, Alert and No Motor Deficits
Skin: Warm
General: Respiratory Distress and Comfortable
Assessment
-
78-year-old man with past medical history noted, admitted with weakness. Found to have bilateral pulmonary embolism. We were consulted on 04/20/2024 for evaluation of this
Extensive bilateral pulmonary embolism found on CT angiogram, reviewed , likely provoked due to recent hospital stay for cryptococcal meningitis
EKG: Sinus rhythm, PVCs. No evidence for RV strain
Not hypoxic
Hemodynamically/no tachycardia
Fatigue/generalized weakness:
Random cortisol is 15-appropriate.
Conditions present prior admission:
History of cryptococcal meningitis
On fluconazole- consolidation therapy
Last dose of dexamethasone 04/14/2024
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
Completed 4 weeks of induction therapy with amphotericin B and flucytosine.
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
History of
NSVT
Hyperlipidemia
History of thyroid nodule-prior TSH normal
Assessment and plan:
Suspect acute pulmonary embolism provoked from recent hospital stay, sedentary after cryptococcal meningitis.
Agree with heparin drip for today, okay to transition to oral anticoagulation in the next 24 hours if patient remains stable.
Follow PTT
Hemodynamically stable, only on low rate supplemental oxygen, not tachycardic.
-
Lower extremity Dopplers pending
Echocardiogram pending
Likely to require 3 to 6 months of anticoagulation depending on clinical situation at that time.
-
Unlikely that extreme fatigue is Caused by his pulmonary embolus.
Random cortisol was normal
He completed steroids on 04/14/2024
TSH has been checked
Fluconazole high-dose as reported fatigue/asthenia as adverse effect. Diagnosis of exclusion.
Monitor for fevers.
-
Will follow
-
Dr. Astudillo updated at the bedside 04/20/2024

Imaging reviewed:
CXR 04/19/2024
There is a trace right pleural effusion with likely adjacent atelectasis.
04/19/24 CT Chest PE Study
1. There is extensive pulmonary embolus which extends from the distal main pulmonary artery into the left main pulmonary artery and segmental left-sided pulmonary arteries. There is also thrombus within the distal right main pulmonary artery which
extends into the truncus anterior, interlobar artery as well as the segmental right-sided pulmonary arteries. There are findings suggestive of slight right heart strain with mild flattening of the interventricular septum and an RV-LV ratio of 0.9.
2. There is right greater than left bibasilar atelectasis with a trace right-sided pleural effusion.
03/20/24 US Periph Venous UPPER Ext RT
1. No evidence of right upper extremity DVT.
2. Right upper extremity DVT seen on prior ultrasound dated 02/10/2024 has resolved.
[2024-04-20 15:20] VITALS: BP 138/79
[2024-04-20 16:20] LABS: Creatine Phosphokinase 25 U/L (55-170)
[2024-04-20] MEDS: HEPARIN 25000 UNITS/250 ML IV (16:22)
--- NOTE | 2024-04-20 18:11 | W.PN.HOSP.TC ---
Addendum entered and electronically signed by Feliberto Wu MD 04/21/24 00:12:
Attending Addendum-
I saw and evaluated the patient. I reviewed the resident�s note and agree with findings and plan as documented in the resident�s note. Sub: feels weak and fatigued. Denies SOB/CP/Hemoptysis. Seen with present. Full 12 point ROS reviewed and
negative except as documented Exam: Vitals reviewed in chart GEN-NAD heart RRR 3/ Sm @ RUSB lungs clear abd soft LE no edema
# Extensive b/l pulmonary embolus and B/L DVT
- cont Heparin gtt x 24 hours transition to DOAC in 24-48 hours
- ECHO- 04/20- LVEF 67% no indication of RV strain
- LE duplex 04/20- Extensive bilateral DVT
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
-s/p 4 weeks flucytosine+liposomal amphotericin
-Continue current consolidation therapy fluconazole 800mg po daily x 8 weeks through 04/26, then maintenance fluconazole 200mg po daily.
- appreciated ID input
- cont to hold steroids no signs of adrenal insufficiency
# H/O CVA
-Midbrain ischemic stroke on 02/20/24
-Left cerebral peduncle infarct on 02/03
- above complicated with Right upper extreme weakness and right eye lateral gaze palsy
- Repeat VSF and per ST: puree diet with mod thick fluids laura last admission
- cont Ritalin due to inattention
- PT OT
# Benign Hypertension
- continue Coreg
- Prior Norvasc was not listed
- Prior Hydralazine was not listed
# Depression
- cont remeron
# Hyperlipidemia
- Continue atorvastatin
DVT Px: Heparin gtt
Full code
Time spent coordinating care, review of plan of care with resident, personally reviewed records in EMR, med rec, consults, notes, labs, radiology, d/w nursing rads and � 59 mins
Original Note:
Today's Communication/Plan
-
.
Assessment / Plan
Assessment / Plan
Bilateral pulmonary embolus:
-Continue on heparin and plan to bridge to Eliis, patient is on heparin drip protocol 04/20
-Echocardiogram today shows left ventricular ejection fraction of 67%, moderate aortic stenosis, mild aortic regurgitation, mild tricuspid regurgitation, pulmonary arterial pressure of 40 mmHg, small anterior pericardial effusion, compared to
previous echo from January 2024 there is no significant change 04/20
-Bilateral leg ultrasound shows extensive bilateral deep vein thrombosis 04/20
-CT of the chest shows extensive pulmonary embolus which extends from the distal main pulmonary artery to the left main pulmonary artery and left-sided pulmonary arteries. Thrombus within the right main pulmonary artery which extends into the
truncus anterior, intralobular artery as well as segmental right-sided pulmonary arteries, bibasilar atelectasis which is greater on the right, right-sided pleural effusion 04/19
Cryptococcal meningitis:
-ID consulted�continue fluconazole 800 mg p.o. daily x 8 weeks until 04/26 then maintenance dose 200 mg p.o. daily 04/20
Weakness
Status postacute midbrain ischemic stroke
left cerebral peduncle infarct:
-PT/OT ordered
Pleural effusion:
-Continue to monitor because it is trace pleural
Hypertension:
-Continue Coreg
Hyperlipidemia:
-Continue atorvastatin
Anticipated Discharge: 24 - 48 hours
Subjective/Interval History
-
Date of Service: April 20, 2024
Patient is an 78-year-old male, full code, PCP who his was concern for progressive weakness when he could not get up out of his walker with his normal amount of strength and needed more assistance than usual starting about a week
ago, then on he noticed blood in the urine and saw his urologist and was started on finasteride, fever yesterday and advised him to come to the hospital today. Was previously in the hospital for cryptococcal meningitis thus
complicated by a left cerebral peduncle infarct.
Denies nausea vomiting, cough, abdominal pain, diarrhea, chest pain.
Objective Data
-
Labs:
Laboratory Results
04/20/24
18:00
APTT Pending
Vital Signs:
Vital Signs
Temp Pulse Resp BP Pulse Ox
98.0 F 71 18 138/79 97
04/20/24 15:20 04/20/24 15:20 04/20/24 15:20 04/20/24 15:20 04/20/24 15:20
I&O
04/19/24 04/20/24 04/21/24
06:59 06:59 06:59
Intake Total 720 / 720
Balance 720 / 720
Review of Systems
-
History Source: Patient
Constitutional: Reports Weakness; Denies Not Done, Fever, Fatigue or Chills
Respiratory: Denies Cough, Hemoptysis or Trouble Breathing
Cardiac: Denies Chest Pain, Diaphoresis, Palpitations or Syncope
Abdomen/GI: Denies Abdominal Pain, Nausea, Vomiting, Diarrhea or Constipated
Genitourinary: Denies Dysuria
Skin: Denies Itching
Physical Exam
-
Respiratory: Clear to Auscultation
Cardiac: Regular Rhythm and S1/S2
Musculoskeletal: Edema, Right Lower Extrem and Edema, Left Lower Extrem
Skin: Dry
Neuro: Awake and Alert
Data Reviewed
-
Medical Tests (Nuc Med, Echo etc): Image personally visualized and interpreted and Discussed with Physician
Labs: Labs Reviewed by me and Discussed with Physician
[2024-04-20 19:04] LABS: APTT 72.7 Sec (23.4-35.0)
[2024-04-20] MEDS: HEPARIN 2500 UNITS IV (19:54)
[2024-04-20] MEDS: REMERON 7.5 MG PO (19:56)
[2024-04-20 20:10] VITALS: BP 134/61
[2024-04-20 23:58] VITALS: BP 125/80
[2024-04-21] VITALS (8 sets, daily range): BP systolic 108–138; BP diastolic 59–80; PULSE 60–75; O2SAT 97–98
[2024-04-21 02:26] LABS: APTT 124.5 Sec (23.4-35.0)
[2024-04-21 02:35] LABS: Lactic Acid 0.9 mmol/L (0.7-2.0)
--- NOTE | 2024-04-21 09:26 | W.PN.HOSP.TC ---
Addendum entered and electronically signed by Feliberto Wu MD 04/21/24 22:23:
Attending Addendum-
I saw and evaluated the patient. I reviewed the resident�s note and agree with findings and plan as documented in the resident�s note. Sub: continues to feels weak and fatigued. denies muscle pain. Denies SOB/CP/Hemoptysis. Seen with present.
Full 12 point ROS reviewed and negative except as documented Exam: Vitals reviewed in chart GEN-NAD heart RRR 07/30 Sm @ RUSB lungs clear abd soft LE b/l +1 edema pulses intact
# Extensive b/l pulmonary embolus and B/L LE DVT
- cont Heparin gtt transition to eliquis in am
- ECHO- 04/20- LVEF 67% no indication of RV strain
- LE duplex 04/20- Extensive bilateral DVT
- PT OT encourage ambulation
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
-s/p 4 weeks flucytosine+liposomal amphotericin
-Continue current consolidation therapy fluconazole 800mg po daily x 8 weeks through 04/26, then maintenance fluconazole 200mg po daily.
- appreciate ID input
- cont to hold steroids - no indication of adrenal insufficiency
# H/O CVA
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
-Left cerebral peduncle infarct on 02/03
- above complicated with Right upper extreme weakness and right eye lateral gaze palsy
- cont Ritalin due to inattention
- PT OT/speech therapy
# Generalized Weakness
- from deconditioning, steroid myopathy, cva, and malnutrition
- encourage po and protein supplements
- PT OT
# Benign Hypertension
- continue Coreg
# Depression
- increase remeron
# Hyperlipidemia
- Continue atorvastatin
DVT Px: Heparin gtt
Full code
Dispo will likely need snf
Time spent coordinating care, review of plan of care with resident, personally reviewed records in EMR, med rec, consults, notes, labs, radiology, d/w nursing rads pulm and � 62 mins
Original Note:
Today's Communication/Plan
-
Plan on switching heparin to Eliquis
Assessment / Plan
Assessment / Plan
Bilateral pulmonary embolus:
-Continue on heparin for 1 more day and plan to switch to Eliquis, patient is on heparin drip protocol 04/21
-Echocardiogram today shows left ventricular ejection fraction of 67%, moderate aortic stenosis, mild aortic regurgitation, mild tricuspid regurgitation, pulmonary arterial pressure of 40 mmHg, small anterior pericardial effusion, compared to
previous echo from January 2024 there is no significant change 04/20
-Bilateral leg ultrasound shows extensive bilateral deep vein thrombosis 04/20
-CT of the chest shows extensive pulmonary embolus which extends from the distal main pulmonary artery to the left main pulmonary artery and left-sided pulmonary arteries. Thrombus within the right main pulmonary artery which extends into the
truncus anterior, intralobular artery as well as segmental right-sided pulmonary arteries, bibasilar atelectasis which is greater on the right, right-sided pleural effusion 04/19
Cryptococcal meningitis:
-ID consulted�continue fluconazole 800 mg p.o. daily x 8 weeks until 04/26 then maintenance dose 200 mg p.o. daily 04/20
Weakness
Status postacute midbrain ischemic stroke
left cerebral peduncle infarct:
-PT/OT ordered 04/21
Pleural effusion:
-Continue to monitor because it is trace pleural
Hypertension:
-Continue Coreg
Hyperlipidemia:
-Continue atorvastatin
Anticipated Discharge: Within 24 hours
Subjective/Interval History
-
Date of Service: April 21, 2024
No overnight events.
Is confused, somewhat able to answer my questions.
Objective Data
-
Labs:
Laboratory Results
04/21/24 04/21/24 04/21/24
02:05 06:00 10:30
WBC Pending
Hgb Pending
Hct Pending
Plt Count Pending
APTT 124.5 H Cancelled Pending
Sodium Pending
Potassium Pending
Chloride Pending
Carbon Dioxide Pending
BUN Pending
Creatinine Pending
Glucose Pending
Calcium Pending
Vital Signs:
Vital Signs
Temp Pulse Resp BP Pulse Ox
98.5 F 65 16 120/75 98
04/21/24 03:51 04/21/24 03:51 04/21/24 03:51 04/21/24 03:51 04/21/24 03:51
I&O
04/20/24 04/21/24 04/22/24
06:59 06:59 06:59
Intake Total 720 / 720 360 / 360
Output Total 1225 / 1225
Balance 720 / 720 -865 / -865
Review of Systems
-
History Source: Patient
Constitutional: Denies Fever or Sleep Disturbance
Respiratory: Denies Cough or Trouble Breathing
Cardiac: Denies Chest Pain, Diaphoresis, Palpitations, Syncope or PND
Abdomen/GI: Denies Abdominal Pain, Nausea, Vomiting or Constipated
Musculoskeletal: Denies Joint Pain or Joint Swelling
Physical Exam
-
Respiratory: Clear to Auscultation
Cardiac: Regular Rhythm and S1/S2
GI: Soft, Nontender and Nondistended
Musculoskeletal: No Edema and Other (Decreased muscle tone of both legs)
Skin: Warm and Dry
Neuro: Awake and Alert
[2024-04-21] MEDS: COREG 3.125 MG PO (09:38)
[2024-04-21] MEDS: RITALIN 10 MG PO ×2 (09:38→12:58)
[2024-04-21] MEDS: PROSCAR 5 MG PO (09:38)
[2024-04-21] MEDS: LOW STRENGTH ASPIRIN 81 MG PO (09:38)
[2024-04-21] MEDS: DIFLUCAN 800 MG PO (09:38)
[2024-04-21] MEDS: FLUSH (NSS) 1 FLUSH IV (09:39)
[2024-04-21] MEDS: LIPITOR 10 MG PO (09:39)
[2024-04-21 10:29] LABS: Hematocrit 27.1 % (39.0-52.0); Hemoglobin 8.8 g/dL (13.0-18.0); Mean Corp Hgb Conc. 32.5 g/dL (33.0-37.0); Mean Corpuscular Hgb 34.5 pg (27.0-31.0); Mean Corpuscular Volume 106.3 fL (80.0-94.0); Mean Platelet Volume 9.6 fL (7.4-10.4); Platelet Count 241 10^3/uL (130-400); Red Blood Cell Count 2.55 10^6/uL (4.70-6.10); Red Cell Dist. Width 17.7 % (11.5-14.5); White Blood Cell Count 9.8 10^3/uL (4.8-10.8)
[2024-04-21 10:34] LABS: APTT 87.2 Sec (23.4-35.0)
[2024-04-21 11:07] LABS: Blood Urea Nitrogen 16 mg/dl (9-20); Carbon Dioxide 28 mmol/L (22-30); Estimated Creatinine Clearance 78 ml/min; eGFR > 60.00
--- NOTE | 2024-04-21 12:26 | W.PN.PUL3 ---
Today's Communication / Plan
-
Continue heparin drip for additional 24 hours, transition to oral anticoagulation 04/22/2024
Monitor for bleeding
Follow H&H
May increase activity as able
Physical therapy as tolerated
Will need outpatient pulmonary follow-up
Assessment
-
78-year-old man with past medical history noted, admitted with weakness. Found to have bilateral pulmonary embolism. We were consulted on 04/20/2024 for evaluation of this
Extensive bilateral pulmonary embolism found on CT angiogram, reviewed , likely provoked due to recent hospital stay for cryptococcal meningitis.
Bilateral DVTs noted on ultrasound.
EKG: Sinus rhythm, PVCs. No evidence for RV strain
Not hypoxic
Hemodynamically stable/no tachycardia
Echocardiogram 04/20/2024: Normal left ventricular size and function. Mild MR. Moderate AAS. Mild aortic regurgitation. Mild TR. Estimated pulmonary pressure 40 mmHg. Normal RV
Fatigue/generalized weakness:
Random cortisol is 15-appropriate.
Conditions present prior admission:
History of cryptococcal meningitis
On fluconazole- consolidation therapy
Last dose of dexamethasone 04/14/2024
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
Completed 4 weeks of induction therapy with amphotericin B and flucytosine.
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
History of
NSVT
Hyperlipidemia
History of thyroid nodule-prior TSH normal
Assessment and plan:
Suspect acute pulmonary embolism provoked from recent hospital stay, sedentary after cryptococcal meningitis.
Agree with heparin drip for today, given presence of bilateral DVT on ultrasound, would continue heparin drip for additional 24 hours.
Follow PTT
Hemodynamically stable, only on low rate supplemental oxygen, not tachycardic.
Echocardiogram without evidence of RV dysfunction
-
Hopefully can transition to oral anticoagulation tomorrow 04/22/2024.
Continue with hemodynamic/telemetry monitoring.
Can increase activity as tolerated slowly.
Likely to require 3 to 6 months of anticoagulation depending on clinical situation at that time.
-
Unlikely that extreme fatigue is Caused by his pulmonary embolus.
Suspect weakness/fatigue due to significant muscle mass loss post hospital stay-has lost about 30 pounds.
Continue physical therapy
Random cortisol was normal
He completed steroids on 04/14/2024
TSH normal
Total CK normal
Fluconazole high-dose as reported fatigue/asthenia as adverse effect. Diagnosis of exclusion.
Monitor for fevers.
-
Will follow
-
Dr. Astudillo updated at the bedside 04/20/2024 and 04/21/2024

Imaging reviewed:
CXR 04/19/2024
There is a trace right pleural effusion with likely adjacent atelectasis.
04/19/24 CT Chest PE Study
1. There is extensive pulmonary embolus which extends from the distal main pulmonary artery into the left main pulmonary artery and segmental left-sided pulmonary arteries. There is also thrombus within the distal right main pulmonary artery which
extends into the truncus anterior, interlobar artery as well as the segmental right-sided pulmonary arteries. There are findings suggestive of slight right heart strain with mild flattening of the interventricular septum and an RV-LV ratio of 0.9.
2. There is right greater than left bibasilar atelectasis with a trace right-sided pleural effusion.
03/20/24 US Periph Venous UPPER Ext RT
1. No evidence of right upper extremity DVT.
2. Right upper extremity DVT seen on prior ultrasound dated 02/10/2024 has resolved.
Subjective Data
-
Date of Service:
Date of Service: April 21, 2024
Chief Complaint: Pulmonary Follow Up (Acute pulmonary embolism/DVT)
Subjective:
Patient denies any significant shortness of breath at rest
Tolerating anticoagulation
Review of Systems
General: Fever (n)
Cardiopulmonary: Dyspnea (none at rest)
GI: Abdominal Pain (n) and Nausea (n)
Neuro: Headache (n)
Objective Data
Data Reviewed
Vital Signs / I&O / Oxygen:
Vital Signs
Temp Pulse Resp BP Pulse Ox
98.1 F 74 22 121/80 98
04/21/24 07:20 04/21/24 09:38 04/21/24 07:20 04/21/24 09:38 04/21/24 07:20
Intake and Output
04/20/24 04/21/24 04/22/24
06:59 06:59 06:59
Intake Total 720 / 720 360 / 360
Output Total 1225 / 1225
Balance 720 / 720 -865 / -865
SaO2 98
Nasal Cannula flow liters per 3
minute
Physical Exam
General: Comfortable
HEENT: Normocephalic
Cardiovascular: S1-S2
Respiratory: Non-Labored Respirations
GI: Soft and Non Distended
Neurology: Awake, Alert and No Motor Deficits
Skin: Warm
Labs/Micro/Reports
Lab Data
04/21/24 10:14
04/21/24 10:14
Laboratory Results
04/20/24 04/21/24 04/21/24
18:45 02:05 06:00
APTT 72.7 H 124.5 H Cancelled
04/21/24
10:14
APTT 87.2 H
Microbiology
04/19/24 12:07 Blood/Venous Blood Culture - Preliminary
No Growth in 48 hours- Final report to follow
04/19/24 12:15 Nasal Swab Influenza Types A & B (LEO) - Final
Negative for Influenza A & B, NAAT
Negative results must be combined with clinical observations
and patient history.
Nucleic Acid Amplification test (NAAT)performed on the
[employer] platform.
[2024-04-21 12:35] LABS: Calcium 8.7 mg/dl (8.4-10.2); Chloride 103 mmol/L (98-107); Glucose 107 mg/dl (70-99); Potassium 3.6 mmol/L (3.5-5.1); Sodium 139 mmol/L (135-145)
[2024-04-21] MEDS: HEPARIN 25000 UNITS/250 ML IV (15:43)
--- NOTE | 2024-04-21 16:32 | W.PN.ID1 ---
Date of Service
Date of Service: April 21, 2024
Today's Communication
continue current treatment
Assessment / Plan
# Extensive PE
# Fever due to PE
- on heparin with plans for eventual transition to oral AC - management per pulmonary
- Follow temps.
# Hx Cryptococcal meningitis
- s/p 4 weeks flucytosine+liposomal amphotericin
- Continue current consolidation therapy fluconazole 800mg po daily x 8 weeks through 04/26, then maintenance fluconazole 200mg po daily
# Acute on chronic weakness
-Multifactorial: PE, ? anemia
- Recent steroid taper (02/24 -04/14)
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
CK normal
No need to resume steroid for PIIRS, if needed for another diagnosis no objection to their use. Of note adrenal insufficiency ruled out with normal am cortisol
Chief Complaint
-: Fever and Other (PE)
Subjective / Review of Systems
having intermittent fevers to 101.3
bp stable
tolerating current therapies
Vital Signs / Physical Exam
Vital Signs
Vital Signs
Temp Pulse Resp BP Pulse Ox
98.3 F 75 20 108/63 100
04/21/24 11:11 04/21/24 11:11 04/21/24 11:11 04/21/24 11:11 04/21/24 11:11
Physical Exam
Constitutional: No Acute Distress
Cardiovascular: Regular Rate and S1/S2; Negative Murmur or Rub
Pulmonary: Clear and Symmetric; Negative Wheezes or Rales
Gastrointestinal: Soft, Non Tender, Non Distended and Normal Bowel Sounds
Skin: Warm and Dry; Negative Rash or Jaundice
Objective Data
Lab Data
Lab Results
04/21/24 10:14
04/21/24 10:14
APTT Cancelled 04/21/24 16:11
Estimated Creat Clear 78 ml/min 04/21/24 10:14
Lactic Acid 0.9 mmol/L (0.7-2.0) 04/21/24 02:05
Total Bilirubin 0.5 mg/dl (0.2-1.3) 04/19/24 12:07
AST 27 U/L (17-59) 04/19/24 12:07
ALT 29 U/L (0-50) 04/19/24 12:07
Alkaline Phosphatase 100 U/L (38-126) 04/19/24 12:07
Most recent labs reviewed.
Micro Results:
04/19/24 12:07 Blood Culture - Preliminary
Blood/Venous No Growth in 48 hours- Final report to follow
04/19/24 12:15 Influenza Types A & B (LEO) - Final
Nasal Swab Negative for Influenza A & B, NAAT
Negative results must be combined with clinical observations
and patient history.
Nucleic Acid Amplification test (NAAT)performed on the
[employer] platform.
04/19/24 CT chest: There is extensive pulmonary embolus which extends from the distal main pulmonary artery into the left main pulmonary artery and segmental left-sided pulmonary arteries. There is also thrombus within the distal right main
pulmonary artery which extends into the truncus anterior, interlobar artery as well as the segmental right-sided pulmonary arteries. There are findings suggestive of slight right heart strain with mild flattening of the interventricular septum and
an RV-LV ratio of 0.9.
[2024-04-21 16:56] LABS: APTT 68.8 Sec (23.4-35.0)
[2024-04-21] MEDS: HEPARIN 2500 UNITS IV (17:48)
[2024-04-21] MEDS: REMERON 7.5 MG PO (21:48)
[2024-04-22 00:18] LABS: APTT 131.9 Sec (23.4-35.0)
[2024-04-22 04:01] VITALS: BP 120/77
--- NOTE | 2024-04-22 04:02 | DOWNTIME ---
There was a [employer] Client Manager Registration Downtime on 04/22/2024 from 0100 to 04/22/2024 at 0350. Downtime documentation of patient's care, including medication administrations, has been reconciled in the electronic record per guidelines. Refer to the
patient's paper chart under the miscellaneous tab to see printed paper medication records and downtime forms.
[2024-04-22 07:30] VITALS: BP 118/77
[2024-04-22 07:40] LABS: Hematocrit 25.4 % (39.0-52.0); Hemoglobin 8.2 g/dL (13.0-18.0); Mean Corp Hgb Conc. 32.3 g/dL (33.0-37.0); Mean Corpuscular Hgb 33.6 pg (27.0-31.0); Mean Corpuscular Volume 104.1 fL (80.0-94.0); Mean Platelet Volume 9.4 fL (7.4-10.4); Platelet Count 252 10^3/uL (130-400); Red Blood Cell Count 2.44 10^6/uL (4.70-6.10); Red Cell Dist. Width 17.5 % (11.5-14.5); White Blood Cell Count 10.2 10^3/uL (4.8-10.8)
[2024-04-22 07:52] LABS: APTT 74.4 Sec (23.4-35.0)
[2024-04-22 08:42] LABS: Blood Urea Nitrogen 17 mg/dl (9-20); Calcium 8.4 mg/dl (8.4-10.2); Carbon Dioxide 27 mmol/L (22-30); Chloride 105 mmol/L (98-107); Estimated Creatinine Clearance 78 ml/min; Glucose 100 mg/dl (70-99); Potassium 3.4 mmol/L (3.5-5.1); Sodium 139 mmol/L (135-145); eGFR > 60.00
[2024-04-22] MEDS: PROSCAR 5 MG PO (09:56)
[2024-04-22] MEDS: DIFLUCAN 800 MG PO (09:56)
[2024-04-22] MEDS: COREG 3.125 MG PO (09:56)
[2024-04-22] MEDS: LOW STRENGTH ASPIRIN 81 MG PO (09:56)
[2024-04-22] MEDS: RITALIN 10 MG PO ×2 (09:57→12:48)
[2024-04-22] MEDS: LIPITOR 10 MG PO (09:57)
[2024-04-22 11:15] VITALS: BP 122/69
--- NOTE | 2024-04-22 11:22 | CM ---
Per PT/OT, currently being recommended for SNF.
Discussed w/ , Maylin at bedside. Maylin is agreeable to SNF as pt is weak and doesn't think he should d/c home.
Maylin asked if [facility] could be a consideration. Discussed [facility] is an acute rehab which is not being recommended. CM educated Maylin on acute rehab vs skilled rehab.
[email or web address].gov list provided to Maylin. Maylin stated she will need some time to explore facilities on list and couldn't guarantee options would be determined today.
CM will cont to follow for d/c planning
Auth not required
Plan: SNF
CM will send SNF referrals once options are determined by spouse
--- NOTE | 2024-04-22 11:56 | W.PN.PUL3 ---
Today's Communication / Plan
-
Okay to transition to oral anticoagulation
Increase activity as able
Physical therapy
Outpatient pulmonary follow-up
Hopeful discharge soon
Sign off
Assessment
-
78-year-old man with past medical history noted, admitted with weakness. Found to have bilateral pulmonary embolism. We were consulted on 04/20/2024 for evaluation of this
Extensive bilateral pulmonary embolism found on CT angiogram, reviewed , likely provoked due to recent hospital stay for cryptococcal meningitis.
Bilateral DVTs noted on ultrasound.
EKG: Sinus rhythm, PVCs. No evidence for RV strain
Not hypoxic
Hemodynamically stable/no tachycardia
Echocardiogram 04/20/2024: Normal left ventricular size and function. Mild MR. Moderate AAS. Mild aortic regurgitation. Mild TR. Estimated pulmonary pressure 40 mmHg. Normal RV
Fatigue/generalized weakness:
Random cortisol is 15-appropriate.
Conditions present prior admission:
History of cryptococcal meningitis
On fluconazole- consolidation therapy
Last dose of dexamethasone 04/14/2024
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
Completed 4 weeks of induction therapy with amphotericin B and flucytosine.
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
History of
NSVT
Hyperlipidemia
History of thyroid nodule-prior TSH normal
Assessment and plan:
Suspect acute pulmonary embolism provoked from recent hospital stay, sedentary after cryptococcal meningitis.
Remains hemodynamically stable, not tachycardic, no oxygen supplementation.
Calves are not swollen or tender on exam 04/22/2024
Echocardiogram without evidence of RV dysfunction
Okay to transition to oral anticoagulants- states that patient has Eliquis at home. Today 04/22/2024
Can increase activity as tolerated slowly.
Likely to require 3 to 6 months of anticoagulation depending on clinical situation at that time.
-
Unlikely that extreme fatigue is Caused by his pulmonary embolus.
Suspect weakness/fatigue due to significant muscle mass loss post hospital stay-has lost about 30 pounds.
Continue physical therapy
Random cortisol was normal
He completed steroids on 04/14/2024
TSH normal
Total CK normal
Fluconazole high-dose as reported fatigue/asthenia as adverse effect. Diagnosis of exclusion.
Monitor for fevers.
-
From the infectious disease perspective remains on fluconazole consolidation therapy for cryptococcal meningitis.
-
Dr. Astudillo updated at the bedside 04/20/2024 and 04/21/2024 and 04/22/2024.
-
No additional recommendation from the pulmonary perspective
Outpatient pulmonary follow-up in about 3 to 4-week
Sign off

Imaging reviewed:
CXR 04/19/2024
There is a trace right pleural effusion with likely adjacent atelectasis.
04/19/24 CT Chest PE Study
1. There is extensive pulmonary embolus which extends from the distal main pulmonary artery into the left main pulmonary artery and segmental left-sided pulmonary arteries. There is also thrombus within the distal right main pulmonary artery which
extends into the truncus anterior, interlobar artery as well as the segmental right-sided pulmonary arteries. There are findings suggestive of slight right heart strain with mild flattening of the interventricular septum and an RV-LV ratio of 0.9.
2. There is right greater than left bibasilar atelectasis with a trace right-sided pleural effusion.
03/20/24 US Periph Venous UPPER Ext RT
1. No evidence of right upper extremity DVT.
2. Right upper extremity DVT seen on prior ultrasound dated 02/10/2024 has resolved.
Subjective Data
-
Date of Service:
Date of Service: April 22, 2024
Chief Complaint: Pulmonary Follow Up (Acute pulmonary embolism/DVT)
Subjective:
No new pulmonary complaints
Continues to complain of weakness
Tolerating heparin drip
Denies dizziness
No shortness of breath at rest
Review of Systems
General: Fever (n)
Cardiopulmonary: Dyspnea (n) and Cough (n)
GI: Abdominal Pain (n) and Nausea (n)
Neuro: Headache (n)
Objective Data
Data Reviewed
Vital Signs / I&O / Oxygen:
Vital Signs
Temp Pulse Resp BP Pulse Ox
98.2 F 75 18 118/77 93
04/22/24 07:30 04/22/24 07:30 04/22/24 07:30 04/22/24 07:30 04/22/24 07:39
Intake and Output
04/21/24 04/22/24 04/23/24
06:59 06:59 06:59
Intake Total 360 / 360 640 / 640
Output Total 1225 / 1225 1400 / 1400
Balance -865 / -865 -760 / -760
SaO2 93
Nasal Cannula flow liters per 2
minute
Physical Exam
General: Comfortable
HEENT: Normocephalic
Cardiovascular: S1-S2
Respiratory: Non-Labored Respirations
GI: Soft and Non Distended
Neurology: Awake, Alert and No Motor Deficits
Skin: Warm
Labs/Micro/Reports
Lab Data
04/22/24 07:30
04/22/24 07:30
Laboratory Results
04/21/24 04/21/24 04/21/24
16:11 16:29 23:53
APTT Cancelled 68.8 H 131.9 H
04/22/24
07:30
APTT 74.4 H
Microbiology
04/19/24 12:07 Blood/Venous Blood Culture - Preliminary
No Growth in 48 hours- Final report to follow
04/19/24 12:15 Nasal Swab Influenza Types A & B (LEO) - Final
Negative for Influenza A & B, NAAT
Negative results must be combined with clinical observations
and patient history.
Nucleic Acid Amplification test (NAAT)performed on the
[employer] platform.
[2024-04-22] MEDS: KCL ELIXIR 40 MEQ PO (13:29)
[2024-04-22 14:18] LABS: APTT 65.1 Sec (23.4-35.0)
[2024-04-22] MEDS: HEPARIN 2500 UNITS IV (14:48)
[2024-04-22 15:15] VITALS: BP 108/90
--- NOTE | 2024-04-22 16:31 | W.PN.ID1 ---
Date of Service
Date of Service: April 22, 2024
Today's Communication
stable for dc from ID perserctive
Assessment / Plan
# Extensive PE
# Fever due to PE
- management per pulmonary
- Follow temps.
# Hx Cryptococcal meningitis
- s/p 4 weeks flucytosine+liposomal amphotericin
- Continue current consolidation therapy fluconazole 800mg po daily x 8 weeks through 04/26, then maintenance fluconazole 200mg po daily
# Acute on chronic weakness
-Multifactorial: PE, ? anemia
- Recent steroid taper (02/24 -04/14)
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
CK normal
No need to resume steroid for PIIRS, if needed for another diagnosis no objection to their use. Of note adrenal insufficiency ruled out with normal am cortisol
Chief Complaint
-: Fever and Other (PE)
Subjective / Review of Systems
afebrile
bp stable
complaint is fatigue
Vital Signs / Physical Exam
Vital Signs
Vital Signs
Temp Pulse Resp BP Pulse Ox
99.1 F 75 18 108/90 93
04/22/24 15:15 04/22/24 15:15 04/22/24 15:15 04/22/24 15:15 04/22/24 15:15
Physical Exam
Constitutional: No Acute Distress
Cardiovascular: Regular Rate and S1/S2; Negative Murmur or Rub
Pulmonary: Clear and Symmetric; Negative Wheezes or Rales
Gastrointestinal: Soft, Non Tender, Non Distended and Normal Bowel Sounds
Skin: Warm and Dry; Negative Rash or Jaundice
Objective Data
Lab Data
Lab Results
04/22/24 07:30
04/22/24 07:30
APTT 65.1 Sec (23.4-35.0) H 04/22/24 13:55
Estimated Creat Clear 78 ml/min 04/22/24 07:30
Lactic Acid 0.9 mmol/L (0.7-2.0) 04/21/24 02:05
Total Bilirubin 0.5 mg/dl (0.2-1.3) 04/19/24 12:07
AST 27 U/L (17-59) 04/19/24 12:07
ALT 29 U/L (0-50) 04/19/24 12:07
Alkaline Phosphatase 100 U/L (38-126) 04/19/24 12:07
Most recent labs reviewed.
Micro Results:
04/19/24 12:07 Blood Culture - Preliminary
Blood/Venous No Growth in 72 hours- Final report to follow
04/19/24 12:15 Influenza Types A & B (LEO) - Final
Nasal Swab Negative for Influenza A & B, NAAT
Negative results must be combined with clinical observations
and patient history.
Nucleic Acid Amplification test (NAAT)performed on the
[employer] platform.
04/19/24 CT chest: There is extensive pulmonary embolus which extends from the distal main pulmonary artery into the left main pulmonary artery and segmental left-sided pulmonary arteries. There is also thrombus within the distal right main
pulmonary artery which extends into the truncus anterior, interlobar artery as well as the segmental right-sided pulmonary arteries. There are findings suggestive of slight right heart strain with mild flattening of the interventricular septum and
an RV-LV ratio of 0.9.
[2024-04-22] MEDS: HEPARIN 25000 UNITS/250 ML IV (17:30)
--- NOTE | 2024-04-22 19:05 | W.PN.HOSP.TC ---
Addendum entered and electronically signed by Feliberto Wu MD 04/22/24 22:30:
Attending Addendum-
I saw and evaluated the patient. I reviewed the resident�s note and agree with findings and plan as documented in the resident�s note. Sub: continues to feels weak. denies muscle pain. Denies SOB/CP/Hemoptysis. Seen with present. Full 12 point
ROS reviewed and negative except as documented Exam: Vitals reviewed in chart GEN-NAD heart RRR 07/30 Sm @ [facility]USB lungs clear abd soft LE b/l no edema pulses intact
# Extensive b/l PE and B/L LE DVT
- Heparin gtt transition to eliquis in pm @ 8pm
- ECHO- 04/20- LVEF 67% no indication of RV strain
- LE doppler 04/20- Extensive bilateral DVT
- PT OT encourage ambulation
# Hypokalemia
- replete
- repeat BMP in am
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
-s/p 4 weeks flucytosine+liposomal amphotericin
-Continue current consolidation therapy fluconazole 800mg po daily x 8 weeks through 04/26, then maintenance fluconazole 200mg po daily.
- appreciate ID input
- cont to hold steroids - no indication of adrenal insufficiency
# H/O CVA
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
-Left cerebral peduncle infarct on 02/03
- above complicated with Right upper extreme weakness and right eye lateral gaze palsy
- cont Ritalin due to inattention
- PT OT/speech therapy
# Generalized Weakness
- from deconditioning, steroid myopathy, cva, and malnutrition
- encourage po and protein supplements
- PT OT
# Benign Hypertension
- continue Coreg
# Depression
- cont increase remeron
# Hyperlipidemia
- Continue atorvastatin
Full code
Dispo will need snf
Time spent coordinating care, review of plan of care with resident, personally reviewed records in EMR, med rec, consults, notes, labs, radiology, d/w nursing rads pulm and � 58 mins
Original Note:
Today's Communication/Plan
-
-follow-up with case management
Assessment / Plan
Assessment / Plan
-financial services manager is currently discussing options for SNF the patient's discharge 04/22
Bilateral pulmonary embolus:
-Planning to switch patient from heparin drip to oral anticoagulation, Eliquis 10 mg twice daily for 7 days, then Eliquis 5 mg twice daily for 6 months 04/22
-Continue on heparin for 1 more day and plan to switch to Eliquis, patient is on heparin drip protocol 04/21
-Echocardiogram today shows left ventricular ejection fraction of 67%, moderate aortic stenosis, mild aortic regurgitation, mild tricuspid regurgitation, pulmonary arterial pressure of 40 mmHg, small anterior pericardial effusion, compared to
previous echo from January 2024 there is no significant change 04/20
-Bilateral leg ultrasound shows extensive bilateral deep vein thrombosis 04/20
-CT of the chest shows extensive pulmonary embolus which extends from the distal main pulmonary artery to the left main pulmonary artery and left-sided pulmonary arteries. Thrombus within the right main pulmonary artery which extends into the
truncus anterior, intralobular artery as well as segmental right-sided pulmonary arteries, bibasilar atelectasis which is greater on the right, right-sided pleural effusion 04/19
Cryptococcal meningitis:
-ID consulted�continue fluconazole 800 mg p.o. daily x 8 weeks until 04/26 then maintenance dose 200 mg p.o. daily 04/20
Weakness
Status postacute midbrain ischemic stroke
left cerebral peduncle infarct:
-PT/OT ordered 04/21
Pleural effusion:
-Continue to monitor because it is trace pleural
Hypertension:
-Continue Coreg
Hyperlipidemia:
-Continue atorvastatin
Anticipated Discharge: 24 - 48 hours
Subjective/Interval History
-
Date of Service: April 22, 2024
No overnight events
No acute medical problems
Objective Data
-
Labs:
Laboratory Results
04/22/24 04/22/24 04/22/24
07:30 13:55 20:50
WBC 10.2
Hgb 8.2 L
Hct 25.4 L
Plt Count 252
APTT 74.4 H 65.1 H Pending
Sodium 139
Potassium 3.4 L
Chloride 105
Carbon Dioxide 27
BUN 17
Creatinine 0.7
Glucose 100 H
Calcium 8.4
Vital Signs:
Vital Signs
Temp Pulse Resp BP Pulse Ox
99.1 F 75 18 108/90 93
04/22/24 15:15 04/22/24 15:15 04/22/24 15:15 04/22/24 15:15 04/22/24 15:15
I&O
04/21/24 04/22/24 04/23/24
06:59 06:59 06:59
Intake Total 360 / 360 640 / 640 600 / 600
Output Total 1225 / 1225 1400 / 1400 1250 / 1250
Balance -865 / -865 -760 / -760 -650 / -650
Review of Systems
-
History Source: Patient
Constitutional: Denies Fever or Fatigue
EENT: Denies Blurry Vision
Respiratory: Denies Cough or Trouble Breathing
Cardiac: Denies Chest Pain, Diaphoresis, Palpitations, Syncope, PND or Orthopnea
Abdomen/GI: Denies Abdominal Pain, Nausea or Vomiting
Genitourinary: Denies Dysuria
Musculoskeletal: Denies Joint Pain
Neuro: Reports Weakness
Physical Exam
-
General: Appears Chronically Ill
Respiratory: Clear to Auscultation
Cardiac: Regular Rhythm, S1/S2 and Murmur (Over the aortic area)
GI: Soft, Nontender and Nondistended
Musculoskeletal: Edema, Right Lower Extrem and Edema, Left Lower Extrem
Skin: Warm and Dry
Neuro: Awake and Alert
Data Reviewed
-
Medical Tests (Nuc Med, Echo etc): Image personally visualized and interpreted and Discussed with Physician
Labs: Labs Reviewed by me and Discussed with Physician
[2024-04-22 19:45] VITALS: BP 126/72
[2024-04-22] MEDS: ELIQUIS 10 MG PO (20:04)
[2024-04-22] MEDS: REMERON 15 MG PO (21:23)
[2024-04-22 23:54] VITALS: BP 144/72
[2024-04-23] VITALS (8 sets, daily range): BP systolic 114–132; BP diastolic 56–79; PULSE 66; O2SAT 98
[2024-04-23 06:11] LABS: Hematocrit 24.8 % (39.0-52.0); Hemoglobin 8.1 g/dL (13.0-18.0); Mean Corp Hgb Conc. 32.7 g/dL (33.0-37.0); Mean Corpuscular Hgb 33.8 pg (27.0-31.0); Mean Corpuscular Volume 103.3 fL (80.0-94.0); Mean Platelet Volume 9.7 fL (7.4-10.4); Platelet Count 269 10^3/uL (130-400); Red Cell Dist. Width 17.2 % (11.5-14.5); White Blood Cell Count 10.3 10^3/uL (4.8-10.8)
[2024-04-23 06:42] LABS: Blood Urea Nitrogen 18 mg/dl (9-20); Calcium 8.5 mg/dl (8.4-10.2); Carbon Dioxide 24 mmol/L (22-30); Chloride 105 mmol/L (98-107); Estimated Creatinine Clearance 78 ml/min; Glucose 132 mg/dl (70-99); Potassium 3.3 mmol/L (3.5-5.1); Sodium 139 mmol/L (135-145); eGFR > 60.00
[2024-04-23] MEDS: LOW STRENGTH ASPIRIN 81 MG PO (08:21)
[2024-04-23] MEDS: LIPITOR 10 MG PO (08:21)
[2024-04-23] MEDS: ELIQUIS 10 MG PO ×2 (08:21→19:51)
[2024-04-23] MEDS: DIFLUCAN 800 MG PO (08:21)
[2024-04-23] MEDS: PROSCAR 5 MG PO (08:21)
[2024-04-23] MEDS: RITALIN 10 MG PO ×2 (08:21→13:01)
[2024-04-23] MEDS: COREG 3.125 MG PO (08:21)
--- NOTE | 2024-04-23 09:34 | W.PN.HOSP.TC ---
Addendum entered and electronically signed by Feliberto Wu MD 04/23/24 22:16:
Attending Addendum-
I saw and evaluated the patient. I reviewed the resident�s note and agree with findings and plan as documented in the resident�s note. Sub: feels weak Denies SOB/CP/Hemoptysis. Seen with present. Full 12 point ROS reviewed and negative except
as documented Exam: Vitals reviewed in chart GEN-NAD cachectic heart RRR 3/6 Sm @ RUSB lungs clear abd soft LE b/l no edema pulses intact
# Extensive b/l PE and B/L LE DVT
- Heparin gtt transitioned to eliquis
- ECHO- 04/20- LVEF 67% no indication of RV strain
- LE doppler 04/20- Extensive bilateral DVT
- PT OT encourage ambulation
# Hypokalemia
- replete
- repeat BMP in am
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
-s/p 4 weeks flucytosine+liposomal amphotericin
-Continue current consolidation therapy fluconazole 800mg po daily x 8 weeks through 04/26, then maintenance fluconazole 200mg po daily.
- appreciate ID input
- cont to hold steroids - no indication of adrenal insufficiency
# H/O CVA
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
-Left cerebral peduncle infarct on 02/03
- above complicated with Right upper extreme weakness and right eye lateral gaze palsy
- cont Ritalin due to inattention
- PT OT/speech therapy
# Generalized Weakness
- from deconditioning, steroid myopathy, cva, and malnutrition
- encourage po and protein supplements
- PT OT
# Benign Hypertension
- continue Coreg
# Depression
- cont increased Remeron
# Hyperlipidemia
- Continue atorvastatin
Full code
Dispo DC to SNF in am
Time spent coordinating care, review of plan of care with resident, personally reviewed records in EMR, med rec, consults, notes, labs, radiology, d/w nursing and � 55 mins
Original Note:
Today's Communication/Plan
-
- follow up with case management
Assessment / Plan
Assessment / Plan
-immigration case manager is currently discussing options for SNF the patient's discharge 04/23
Bilateral pulmonary embolus:
- On 2nd day of eliquis 10 mg bid, next dose at 8 pm tonight 04/23
-Planning to switch patient from heparin drip to oral anticoagulation, Eliquis 10 mg twice daily for 7 days, then Eliquis 5 mg twice daily for 6 months 04/22
-Continue on heparin for 1 more day and plan to switch to Eliquis, patient is on heparin drip protocol 04/21
-Echocardiogram today shows left ventricular ejection fraction of 67%, moderate aortic stenosis, mild aortic regurgitation, mild tricuspid regurgitation, pulmonary arterial pressure of 40 mmHg, small anterior pericardial effusion, compared to
previous echo from January 2024 there is no significant change 04/20
-Bilateral leg ultrasound shows extensive bilateral deep vein thrombosis 04/20
-CT of the chest shows extensive pulmonary embolus which extends from the distal main pulmonary artery to the left main pulmonary artery and left-sided pulmonary arteries. Thrombus within the right main pulmonary artery which extends into the
truncus anterior, intralobular artery as well as segmental right-sided pulmonary arteries, bibasilar atelectasis which is greater on the right, right-sided pleural effusion 04/19
abdominal pain associated with nausea/ vomiting:
- Possibly due to potassium medication
- Abdominal x ray shows non obstructive gaseous pattern, mild gaseous distention of stomach
- Lipase and LFT's are normal
- Order simethicone
Hypokalemia:
- Potassium level is 3.3
- ordered potassium 40 po
- Recheck tommorow
Cryptococcal meningitis:
-ID consulted�continue fluconazole 800 mg p.o. daily x 8 weeks until 04/26 then maintenance dose 200 mg p.o. daily 04/20
Weakness
Status postacute midbrain ischemic stroke
left cerebral peduncle infarct:
-PT/OT ordered 04/21
Pleural effusion:
-Continue to monitor because it is trace pleural
Hypertension:
-Continue Coreg
Hyperlipidemia:
-Continue atorvastatin
Anticipated Discharge: 24 - 48 hours
Subjective/Interval History
-
Date of Service: April 23, 2024
Patient had an episode of vomiting as well as walking to the room today. This is his first episode of vomiting since admission. He feels stomach pain.
Objective Data
-
Labs:
Laboratory Results
04/23/24
05:40
WBC 10.3
Hgb 8.1 L
Hct 24.8 L
Plt Count 269
Sodium 139
Potassium 3.3 L
Chloride 105
Carbon Dioxide 24
BUN 18
Creatinine 0.7
Glucose 132 H
Calcium 8.5
Vital Signs:
Vital Signs
Temp Pulse Resp BP Pulse Ox
97.8 F 76 20 114/61 95
04/23/24 07:40 04/23/24 07:40 04/23/24 07:40 04/23/24 07:40 04/23/24 07:40
I&O
04/22/24 04/23/24 04/24/24
06:59 06:59 06:59
Intake Total 640 / 640 600 / 600
Output Total 1400 / 1400 1250 / 1250 450 / 450
Balance -760 / -760 -650 / -650 -450 / -450
Review of Systems
-
History Source: Patient
Constitutional: Denies Fever or Chills
Respiratory: Denies Cough or Trouble Breathing
Cardiac: Denies Chest Pain, Palpitations, Syncope or PND
Abdomen/GI: Reports Abdominal Pain, Nausea and Vomiting; Denies Diarrhea or Constipated
Genitourinary: Denies Dysuria
Musculoskeletal: Denies Joint Pain
Physical Exam
-
Cardiac: Regular Rhythm and S1/S2
GI: Soft, Nontender, Nondistended and Normal Bowel Sounds
Musculoskeletal: No Edema
Skin: Warm and Dry
Neuro: Awake and Alert
[2024-04-23 10:04] LABS: Magnesium 1.9 mg/dl (1.6-2.3)
[2024-04-23] MEDS: ZOFRAN 4 MG IV (10:13)
[2024-04-23] MEDS: KCL ELIXIR 40 MEQ PO (11:11)
[2024-04-23 11:30] LABS: Folate 19.4 ng/ml (2.76-20); Vitamin B12 608 pg/ml (239-931)
[2024-04-23 13:21] LABS: ALT (SGPT) 36 U/L (0-50); AST (SGOT) 38 U/L (17-59); Albumin 2.9 g/dl (3.5-5.0); Alkaline Phosphatase 90 U/L (38-126); Direct Bilirubin 0.1 mg/dl (0.0-0.4); Lipase 32 U/L (23-300); Total Bilirubin 0.5 mg/dl (0.2-1.3); Total Protein 5.2 g/dl (6.3-8.2)
[2024-04-23] MEDS: MYLICON 80 MG PO (17:42)
[2024-04-23] MEDS: REMERON 15 MG PO (19:51)
[2024-04-24 04:20] VITALS: BP 137/76; BMI 19.3
--- NOTE | 2024-04-24 07:11 | W.DCSUMMARY ---
Addendum entered and electronically signed by Feliberto Wu MD 04/25/24 00:23:
Read, reviewed, and agree. See same day progress note for additional details. unclear why sent on bactrim. will dc. will increase remeron at facilty. DC to ID.
Mandeep Wu MD
Original Note:
Documented by User: Darnell Sherwood MD, Resident 04/24/24 19:06
Discharge Summary
Discharge Data
Date of Admission: 04/19/24
Date of Discharge: 04/24/24
-
Pending Results: No
Hospital Course
Patient is an 78-year-old male, full code, PCP . On 04/19/2024 patient's was concerned for progressive weakness when he could not get up out of his walker with his normal amount of strength, or needed assistance shaving his mckinney,
and also normal daily activities needing more assistance about a week ago. he noticed blood in his urine on the followed by a fever which was measured at home on thus was advised by his to come to the hospital. Previously admitted very
recently to [facility] for 8 weeks for hospital relapse of cryptococcal meningitis which was treated with fluconazole and dexamethasone, also suffered a stroke in the left cerebral peduncle during his last admission, for which to receive
treatment at [facility]. Chest x-ray on admission showed trace right pleural effusion, likely atelectasis, stable left basilar opacity. Chest CT on admission showed pulmonary embolus in the distal main pulmonary artery as well as the right main
pulmonary artery, along with bibasilar atelectasis with right side being greater. Blood cultures on admission negative. On 04/20/2024 bilateral lower extremity venous ultrasound showed extensive bilateral DVT. Echocardiogram was normal and showed
left ejection fraction of 67% with no significant changes from previous echo in January 2024. Patient was initially placed on heparin drip for 3 days and then transitioned to oral anticoagulation with Eliquis loading dose of 10 mg twice daily.
PT/OT suggest skilled rehab with therapy 1 to 2 hours a day to assess and further improve patient's weakness. Patient subsequently discharged to [facility].
Cryptococcal meningitis�continue fluconazole 800 mg p.o. daily for 8 weeks through 04/26 then maintenance fluconazole 200 mg p.o. daily. Hold steroids.
Benign hypertension�continue Coreg
Depression�continue Remeron
Hyperlipidemia�continue atorvastatin
Discharge Plan
-
Patient Disposition: Detention/SNF
Discharge Diagnosis/Procedures: Bilateral Pulmonary embolism, Hypokalemia, Cryptococcal meningitis, Cerebrovascular aneurysm, Generalized weakness, benign Hypertension, Depression, Hyperlipidemia
Condition: Fair
Diet: Other diet
Additional Diets: Soft and bite sized, IDDSI 6
Activity: As tolerated
Driving Restrictions: No driving
Bathing Restrictions: None
Other Services: PT, OT and ST
Activity Restrictions/Additional Instructions:
Repeat CBC and BMP in 1 week with PCP
Instructions: Pulmonary embolism (blood clot in the lung), Deep vein thrombosis - Discharge instructions, Pulmonary embolism - Discharge instructions
Referrals:
Helder Calderon MD [Active] - in two to four weeks (May see [facility])
Romulo Velazquez MD [Family Provider] - in less than 1 week
Additional Discharge Medication Instructions:
Continue the Eliquis 10 mg BID (twice daily) at 8am and 8 pm every day until 04/29/2024 8 am. Then on 04/29/2024, transition to Eliquis 5 mg BID (twice daily) at 8 pm. then everyday from then onwards take it at both 8 am and 8 pm for the next 6
months.
Prescriptions:
New
Eliquis DVT-PE Treat 30D Start 5 mg (74 tabs) tablets,dose pack
5 mg PO BID 30 Days Qty: 74 0RF
Rx Instructions:
2tablets twice a day for 5days,then
1 tablet twice a day for next 25 days
at 8am and 8pm.
Continued
aspirin 81 mg Tablet,Chewable
81 mg PO DAILY Qty: 30 0RF
atorvastatin 10 mg Tablet
10 mg PO DAILY 30 Days Qty: 30 0RF
sulfamethoxazole-trimethoprim [Bactrim DS] 800-160 mg Tablet
1 tab PO BID
Patient Comments:
04/19/24: started yesterday, to take for 7 days
therapeutic multivitamin Tablet
1 tab PO DAILY Qty: 30 0RF
acetaminophen [Tylenol Extra Strength] 500 mg Tablet
1,000 mg PO Q6HPRN PRN (Reason: mild pain) Qty: 30 0RF
docusate sodium [Colace] 100 mg Capsule
100 mg PO BIDPRN PRN (Reason: constipation) Qty: 30 0RF
finasteride 5 mg Tablet
5 mg PO DAILY Qty: 30 0RF
carvedilol 3.125 mg Tablet
3.125 mg PO DAILY 30 Days Qty: 30 0RF
fluconazole 200 mg Tablet
800 mg PO DAILY 38 Days Qty: 152 0RF
Patient Comments:
04/19/24: Plan to decrease to 1 tab QD on 04/26/24
mirtazapine 7.5 mg Tablet
7.5 mg PO HS 30 Days Qty: 30 0RF
Changed
methylphenidate HCl 5 mg tablet
10 mg PO BID@0800,1200 Qty: 30 0RF
Discharge Orders:
Discharge Patient (As Directed); Ordered 04/24/24
Ordered By: Darnell Sherwood
Discharge Date and Time
Discharge Date/Time: 04/24/24 17:09
Print Language: BULGARIAN

Documented by User: Feliberto Wu MD 04/25/24 00:16
Discharge Summary
Discharge Data
Date of Admission: 04/19/24
Date of Discharge: 04/25/24
Discharge Plan
-
Patient Disposition: Detention/SNF
Discharge Diagnosis/Procedures: Bilateral Pulmonary embolism, Hypokalemia, Cryptococcal meningitis, Cerebrovascular aneurysm, Generalized weakness, benign Hypertension, Depression, Hyperlipidemia
Condition: Fair
Diet: Other diet
Additional Diets: Soft and bite sized, IDDSI 6
Activity: As tolerated
Driving Restrictions: No driving
Bathing Restrictions: None
Other Services: PT, OT and ST
Activity Restrictions/Additional Instructions:
Repeat CBC and BMP in 1 week with PCP
Instructions: Pulmonary embolism (blood clot in the lung), Deep vein thrombosis - Discharge instructions, Pulmonary embolism - Discharge instructions
Referrals:
Helder Calderon MD [Active] - in two to four weeks (May see [facility])
Romulo Velazquez MD [Family Provider] - in less than 1 week
Additional Discharge Medication Instructions:
Continue the Eliquis 10 mg BID (twice daily) at 8am and 8 pm every day until 04/29/2024 8 am. Then on 04/29/2024, transition to Eliquis 5 mg BID (twice daily) at 8 pm. then everyday from then onwards take it at both 8 am and 8 pm for the next 6
months.
Prescriptions:
New
Eliquis DVT-PE Treat 30D Start 5 mg (74 tabs) tablets,dose pack
5 mg PO BID 30 Days Qty: 74 0RF
Rx Instructions:
2tablets twice a day for 5days,then
1 tablet twice a day for next 25 days
at 8am and 8pm.
Continued
aspirin 81 mg Tablet,Chewable
81 mg PO DAILY Qty: 30 0RF
atorvastatin 10 mg Tablet
10 mg PO DAILY 30 Days Qty: 30 0RF
sulfamethoxazole-trimethoprim [Bactrim DS] 800-160 mg Tablet
1 tab PO BID
Patient Comments:
04/19/24: started yesterday, to take for 7 days
therapeutic multivitamin Tablet
1 tab PO DAILY Qty: 30 0RF
acetaminophen [Tylenol Extra Strength] 500 mg Tablet
1,000 mg PO Q6HPRN PRN (Reason: mild pain) Qty: 30 0RF
docusate sodium [Colace] 100 mg Capsule
100 mg PO BIDPRN PRN (Reason: constipation) Qty: 30 0RF
finasteride 5 mg Tablet
5 mg PO DAILY Qty: 30 0RF
carvedilol 3.125 mg Tablet
3.125 mg PO DAILY 30 Days Qty: 30 0RF
fluconazole 200 mg Tablet
800 mg PO DAILY 38 Days Qty: 152 0RF
Patient Comments:
04/19/24: Plan to decrease to 1 tab QD on 04/26/24
mirtazapine 7.5 mg Tablet
7.5 mg PO HS 30 Days Qty: 30 0RF
Changed
methylphenidate HCl 5 mg tablet
10 mg PO BID@0800,1200 Qty: 30 0RF
Discharge Orders:
Discharge Patient (As Directed); Ordered 04/24/24
Ordered By: Darnell Sherwood
Discharge Date and Time
Discharge Date/Time: 04/24/24 17:09
Print Language: BULGARIAN
[2024-04-24 07:30] VITALS: BP 156/90
--- NOTE | 2024-04-24 07:46 | W.PN.HOSP.TC ---
Addendum entered and electronically signed by Feliberto Wu MD 04/25/24 00:18:
Attending Addendum-
I saw and evaluated the patient. I reviewed the resident�s note and agree with findings and plan as documented in the resident�s note. Sub: feels improved. Denies SOB/CP/Hemoptysis. Seen with present. Full 12 point ROS reviewed and negative
except as documented Exam: Vitals reviewed in chart GEN-NAD cachectic heart RRR 3/6 Sm @ RUSB lungs clear abd soft LE b/l no edema pulses intact
# Extensive b/l PE and B/L LE DVT
- Heparin gtt transitioned to eliquis- tolerating well
- ECHO- 04/20- LVEF 67% no indication of RV strain
- LE doppler 04/20- Extensive bilateral DVT
- PT OT encourage ambulation
# Hypokalemia
- replete
- repeat BMP in am
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
-s/p 4 weeks flucytosine+liposomal amphotericin
-Continue current consolidation therapy fluconazole 800mg po daily x 8 weeks through 04/26, then maintenance fluconazole 200mg po daily.
- appreciate ID input
- cont to hold steroids - no indication of adrenal insufficiency
# H/O CVA
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
-Left cerebral peduncle infarct on 02/03
- above complicated with Right upper extreme weakness and right eye lateral gaze palsy
- cont Ritalin due to inattention
- PT OT/speech therapy
# Generalized Weakness
- from deconditioning, steroid myopathy, cva, and malnutrition
- encourage po and protein supplements
- PT OT
# Benign Hypertension
- continue Coreg
# Depression
- cont increased Remeron
# Hyperlipidemia
- Continue atorvastatin
Full code
Dispo DC to SNF [facility] today
Time spent coordinating care, DC planning, review of DC plan of care with resident, transition of care, review of records, med rec/scripts sent electronically, consults, notes, d/w consultants, nursing, family, [facility], and � 36 mins
Original Note:
Today's Communication/Plan
-
.
Assessment / Plan
Assessment / Plan
-Patient is going to be discharged to [facility] 04/24
Bilateral pulmonary embolus:
- On 3rd day of eliquis 10 mg bid, next dose at 8 pm tonight, instructed patients on appropriate dosages after discharge 04/24
-Planning to switch patient from heparin drip to oral anticoagulation, Eliquis 10 mg twice daily for 7 days, then Eliquis 5 mg twice daily for 6 months 04/22
-Continue on heparin for 1 more day and plan to switch to Eliquis, patient is on heparin drip protocol 04/21
-Echocardiogram today shows left ventricular ejection fraction of 67%, moderate aortic stenosis, mild aortic regurgitation, mild tricuspid regurgitation, pulmonary arterial pressure of 40 mmHg, small anterior pericardial effusion, compared to
previous echo from January 2024 there is no significant change 04/20
-Bilateral leg ultrasound shows extensive bilateral deep vein thrombosis 04/20
-CT of the chest shows extensive pulmonary embolus which extends from the distal main pulmonary artery to the left main pulmonary artery and left-sided pulmonary arteries. Thrombus within the right main pulmonary artery which extends into the
truncus anterior, intralobular artery as well as segmental right-sided pulmonary arteries, bibasilar atelectasis which is greater on the right, right-sided pleural effusion 04/19
abdominal pain associated with nausea/ vomiting:
- Resolved 04/24
Hypokalemia:
- potassium level is 4.2, resolved 04/24
Cryptococcal meningitis:
-ID consulted�continue fluconazole 800 mg p.o. daily x 8 weeks until 04/26 then maintenance dose 200 mg p.o. daily 04/20
Weakness
Status postacute midbrain ischemic stroke
left cerebral peduncle infarct:
-PT/OT following
Pleural effusion:
-Continue to monitor because it is trace pleural
Hypertension:
-Continue Coreg
Hyperlipidemia:
-Continue atorvastatin
Anticipated Discharge: Today
Subjective/Interval History
-
Date of Service: April 24, 2024
No overnight medical events.
No acute medical problems.
Objective Data
-
Labs:
Laboratory Results
04/24/24
06:00
WBC Pending
Hgb Pending
Hct Pending
Plt Count Pending
Sodium Pending
Potassium Pending
Chloride Pending
Carbon Dioxide Pending
BUN Pending
Creatinine Pending
Glucose Pending
Calcium Pending
Vital Signs:
Vital Signs
Temp Pulse Resp BP Pulse Ox
97.6 F 65 20 137/76 94
04/24/24 04:20 04/24/24 04:20 04/24/24 04:20 04/24/24 04:20 04/24/24 04:20
I&O
04/23/24 04/24/24 04/25/24
06:59 06:59 06:59
Intake Total 600 / 600 600 / 600
Output Total 1250 / 1250 1750 / 1750
Balance -650 / -650 -1150 / -1150
Review of Systems
-
History Source: Patient
Constitutional: Denies Fever or Chills
Respiratory: Denies Cough or Trouble Breathing
Cardiac: Denies Chest Pain, Diaphoresis, Palpitations, Syncope or PND
Abdomen/GI: Denies Abdominal Pain, Nausea, Vomiting, Diarrhea or Constipated
Skin: Denies Itching
Neuro: Reports Weakness; Denies Dizzy or Lightheadedness
Physical Exam
-
Cardiac: Regular Rhythm and Murmur (over the aortic area.)
GI: Soft, Nontender, Nondistended and Normal Bowel Sounds
Musculoskeletal: No Edema
Skin: Warm and Dry
Neuro: Awake and Alert
Data Reviewed
-
Medical Tests (Nuc Med, Echo etc): Image personally visualized and interpreted and Discussed with Physician
Labs: Labs Reviewed by me and Discussed with Physician
[2024-04-24] MEDS: COREG 3.125 MG PO (08:16)
[2024-04-24] MEDS: ELIQUIS 10 MG PO (08:16)
[2024-04-24] MEDS: RITALIN 10 MG PO ×2 (08:16→12:44)
[2024-04-24] MEDS: LOW STRENGTH ASPIRIN 81 MG PO (08:16)
[2024-04-24] MEDS: DIFLUCAN 800 MG PO (08:16)
[2024-04-24] MEDS: PROSCAR 5 MG PO (08:16)
[2024-04-24] MEDS: LIPITOR 10 MG PO (08:17)
[2024-04-24] MEDS: FLUSH (NSS) 1 FLUSH IV ×2 (08:18→08:19)
[2024-04-24 09:00] LABS: Hematocrit 27.7 % (39.0-52.0); Hemoglobin 8.9 g/dL (13.0-18.0); Mean Corp Hgb Conc. 32.1 g/dL (33.0-37.0); Mean Corpuscular Hgb 34.2 pg (27.0-31.0); Mean Corpuscular Volume 106.5 fL (80.0-94.0); Mean Platelet Volume 9.8 fL (7.4-10.4); Platelet Count 320 10^3/uL (130-400); Red Cell Dist. Width 17.7 % (11.5-14.5)
--- NOTE | 2024-04-24 09:22 | CM ---
Addendum entered by Camelia Elizabeth 04/24/24 14:12:
Per Phyllis/KAITLYN at [facility], there is a admission cancellation and is able to accept pt today instead of tomorrow.
Pt's is agreeable to d/c today.
Physician resident updated
card processing clerk was advised of d/c and to schedule ambulance transport, forms on chart
Addendum entered by Camelia Elizabeth 04/24/24 10:25:
Spoke w/ spouse who stated [facility] would like for CM to follow up re admission
CM spoke w/ Georgina who stated that facility would be able to offer pt bed tomorrow as there are multiple pending admissions today but all are not confirmed. Per Georgina if there are any changes to their admissions today, she will follow up w/ CM
but to still plan for d/c tomorrow.
Updated physician resident via TT
Will need ambulance transport, forms on chart
Spouse updated. IMM reviewed w/ spouse, copy on chart
[facility]-SNF
Report: [phone]- ASK FOR NURSING MATE SHIP

Plan: [facility] SNF via ambulance
Original Note:
Spoke w/ pt spouse re rehab choices as pt is medically stable to d/c.
Per spouse, she is interested in [facility] and has a meeting today w/ Gloria who is the display director at facility.
CM completed referral in [facility], pending determination
Plan: SNF; [facility] preferred, pending bed availability
[2024-04-24 09:26] LABS: Blood Urea Nitrogen 16 mg/dl (9-20); Calcium 9.2 mg/dl (8.4-10.2); Carbon Dioxide 28 mmol/L (22-30); Chloride 103 mmol/L (98-107); Estimated Creatinine Clearance 73 ml/min; Glucose 108 mg/dl (70-99); Potassium 4.2 mmol/L (3.5-5.1); Sodium 138 mmol/L (135-145); eGFR > 60.00
--- NOTE | 2024-04-24 11:10 | W.PN.ID1 ---
Date of Service
Date of Service: April 24, 2024
Today's Communication
- Continue current consolidation therapy fluconazole 800mg po daily x 8 weeks through 04/26, then maintenance fluconazole 200mg po daily - patient has script for fluconazole from our last office visit
outpatient follow up with me is already scheduled - in about 1 month
Assessment / Plan
# Extensive PE
# Fever due to PE
- management per pulmonary
- Follow temps.
# Hx Cryptococcal meningitis
- s/p 4 weeks flucytosine+liposomal amphotericin
- Continue current consolidation therapy fluconazole 800mg po daily x 8 weeks through 04/26, then maintenance fluconazole 200mg po daily - patient has script for fluconazole from our last office visit
outpatient follow up with me is already scheduled - in about 1 month
Chief Complaint
-: Fever and Other (PE)
Subjective / Review of Systems
afebrile
bp stable
no events overnight
Vital Signs / Physical Exam
Vital Signs
Vital Signs
Temp Pulse Resp BP Pulse Ox
98.2 F 65 20 156/90 95
04/24/24 07:30 04/24/24 08:16 04/24/24 07:30 04/24/24 08:16 04/24/24 07:30
Physical Exam
Constitutional: No Acute Distress
Cardiovascular: Regular Rate and S1/S2; Negative Murmur or Rub
Pulmonary: Clear and Symmetric; Negative Wheezes or Rales
Gastrointestinal: Soft, Non Tender, Non Distended and Normal Bowel Sounds
Skin: Warm and Dry; Negative Rash or Jaundice
Objective Data
Lab Data
Lab Results
04/24/24 08:24
04/24/24 08:24
APTT Cancelled 04/22/24 20:50
Estimated Creat Clear 73 ml/min 04/24/24 08:24
Lactic Acid 0.9 mmol/L (0.7-2.0) 04/21/24 02:05
Total Bilirubin 0.5 mg/dl (0.2-1.3) 04/23/24 12:55
AST 38 U/L (17-59) 04/23/24 12:55
ALT 36 U/L (0-50) 04/23/24 12:55
Alkaline Phosphatase 90 U/L (38-126) 04/23/24 12:55
Most recent labs reviewed.
Micro Results:
04/19/24 12:07 Blood Culture - Preliminary
Blood/Venous No Growth in 4 days- Final report to follow
04/19/24 12:15 Influenza Types A & B (LEO) - Final
Nasal Swab Negative for Influenza A & B, NAAT
Negative results must be combined with clinical observations
and patient history.
Nucleic Acid Amplification test (NAAT)performed on the
[employer] platform.
04/19/24 CT chest: There is extensive pulmonary embolus which extends from the distal main pulmonary artery into the left main pulmonary artery and segmental left-sided pulmonary arteries. There is also thrombus within the distal right main
pulmonary artery which extends into the truncus anterior, interlobar artery as well as the segmental right-sided pulmonary arteries. There are findings suggestive of slight right heart strain with mild flattening of the interventricular septum and
an RV-LV ratio of 0.9.
[2024-04-24 15:12] VITALS: BP 133/77
== END 2024-04-24 17:09 | DRG 175 ==
LOC: 4 EAST ACU 15:54
PROVIDERS: Nurse Practitioner Family; Registered Nurse; Student in an Organized Health Care Education/Training Program; ADMITTING PHYSICIAN Internal Medicine; ATTENDING PHYSICIAN Family Medicine; EMERGENCY PHYSICIAN Emergency Medicine; FAMILY PHYSICIAN Internal Medicine Geriatric Medicine; OTHER PHYSICIAN Internal Medicine Critical Care Medicine; OTHER PHYSICIAN Internal Medicine Infectious Disease
DX: I26.99 Other pulmonary embolism without acute cor pulmonale (principal); B45.1 Cerebral cryptococcosis; I82.413 Acute embolism and thrombosis of femoral vein, bilateral; I82.453 Acute embolism and thrombosis of peroneal vein, bilateral; I82.433 Acute embolism and thrombosis of popliteal vein, bilateral; I82.443 Acute embolism and thrombosis of tibial vein, bilateral; E78.00 Pure hypercholesterolemia, unspecified; I10 Essential (primary) hypertension; E89.0 Postprocedural hypothyroidism; M47.812 Spondylosis without myelopathy or radiculopathy, cervical region; R50.9 Fever, unspecified; E87.6 Hypokalemia; F32.A Depression, unspecified; I67.1 Cerebral aneurysm, nonruptured; N40.1 Benign prostatic hyperplasia with lower urinary tract symptoms; R33.8 Other retention of urine; Z11.52 Encounter for screening for COVID-19; Z86.73 Personal history of transient ischemic attack (TIA), and cerebral infarction without residual deficits; Z87.891 Personal history of nicotine dependence; Z79.01 Long term (current) use of anticoagulants; Z79.82 Long term (current) use of aspirin; Z86.61 Personal history of infections of the central nervous system; Z86.718 Personal history of other venous thrombosis and embolism
CPT/HCPCS: 93308; 71046; 71275; 74018; 80048; 80053; 80076; 81003; 82533; 82550; 82607; 82746; 83605; 83690; 83735; 84145; 84443; 85025; 85027; 85730; 86850; 86900; 86901; 87040; 87086; 87502; 87811; 93005; 93321; 93325; 93970; 96360; 97163; 97167; 97530; 99285; Q9967

== ENCOUNTER → 2024-04-28 10:35 | Outpatient (REF) | payer OTHER, MEDICARE, SELFPAY ==
[2024-04-28 11:18] LABS: Blood Urea Nitrogen 19 mg/dl (9-20); Calcium 9.2 mg/dl (8.4-10.2); Carbon Dioxide 27 mmol/L (22-30); Chloride 106 mmol/L (98-107); Glucose 100 mg/dl (70-99); Potassium 4.1 mmol/L (3.5-5.1); Sodium 139 mmol/L (135-145); eGFR > 60.00
[2024-04-28 11:25] LABS: Hematocrit 25.5 % (39.0-52.0); Hemoglobin 8.5 g/dL (13.0-18.0); Mean Corp Hgb Conc. 33.3 g/dL (33.0-37.0); Mean Corpuscular Hgb 34.4 pg (27.0-31.0); Mean Corpuscular Volume 103.2 fL (80.0-94.0); Mean Platelet Volume 9.7 fL (7.4-10.4); Platelet Count 358 10^3/uL (130-400); Red Blood Cell Count 2.47 10^6/uL (4.70-6.10); Red Cell Dist. Width 17.5 % (11.5-14.5); White Blood Cell Count 9.1 10^3/uL (4.8-10.8)
== END ==
LOC: OLABP 10:35
PROVIDERS: ATTENDING PHYSICIAN Family Medicine
DX: B45.1 Cerebral cryptococcosis (principal); I82.403 Acute embolism and thrombosis of unspecified deep veins of lower extremity, bilateral; I26.99 Other pulmonary embolism without acute cor pulmonale; I82.811 Embolism and thrombosis of superficial veins of right lower extremity; E22.2 Syndrome of inappropriate secretion of antidiuretic hormone; E78.5 Hyperlipidemia, unspecified; M50.30 Other cervical disc degeneration, unspecified cervical region; E04.1 Nontoxic single thyroid nodule; R53.1 Weakness
CPT/HCPCS: 36415; 80048; 85027

== ENCOUNTER → 2024-05-01 09:43 | Outpatient (REF) | payer OTHER, MEDICARE, SELFPAY ==
[2024-05-01 11:37] LABS: % Eosinophils 1.3 % (0-6); % Immature Granulocytes 2.8 % (0-0.5); % Lymphocytes 18.8 % (20.5-51.1); % Monocytes 7.8 % (1.7-9.3); % Neutrophils 68.3 % (42.2-75.2); Absolute Basophils 0.1 10^3/uL (0-0.2); Absolute Eosinophils 0.1 10^3/uL (0-0.7); Absolute Immature Granulocytes 0.3 10^3/uL (0-0.05); Absolute Lymphocytes 1.9 10^3/uL (1.2-3.4); Absolute Monocytes 0.8 10^3/uL (0.1-0.6); Absolute Neutrophils 6.8 10^3/uL (1.4-6.5); Hematocrit 30.9 % (39.0-52.0); Hemoglobin 9.4 g/dL (13.0-18.0); Mean Corp Hgb Conc. 30.4 g/dL (33.0-37.0); Mean Corpuscular Hgb 33.8 pg (27.0-31.0); Mean Corpuscular Volume 111.2 fL (80.0-94.0); Mean Platelet Volume 9.7 fL (7.4-10.4); Nucleated Red Blood Cells % 0 % (-); Platelet Count 372 10^3/uL (130-400); Red Blood Cell Count 2.78 10^6/uL (4.70-6.10); White Blood Cell Count 9.9 10^3/uL (4.8-10.8)
[2024-05-01 12:02] LABS: ALT (SGPT) 28 U/L (0-50); AST (SGOT) 28 U/L (17-59); Albumin 3.3 g/dl (3.5-5.0); Alkaline Phosphatase 100 U/L (38-126); Blood Urea Nitrogen 19 mg/dl (9-20); Calcium 9.9 mg/dl (8.4-10.2); Carbon Dioxide 29 mmol/L (22-30); Chloride 110 mmol/L (98-107); Glucose 105 mg/dl (70-99); Sodium 146 mmol/L (135-145); Total Bilirubin 0.5 mg/dl (0.2-1.3); Total Protein 5.7 g/dl (6.3-8.2); eGFR > 60.00
== END ==
LOC: OLABP 09:43
PROVIDERS: ATTENDING PHYSICIAN Family Medicine
DX: B45.1 Cerebral cryptococcosis (principal); I82.403 Acute embolism and thrombosis of unspecified deep veins of lower extremity, bilateral; I26.99 Other pulmonary embolism without acute cor pulmonale; I82.811 Embolism and thrombosis of superficial veins of right lower extremity; I63.9 Cerebral infarction, unspecified; E22.2 Syndrome of inappropriate secretion of antidiuretic hormone; E78.5 Hyperlipidemia, unspecified; M50.30 Other cervical disc degeneration, unspecified cervical region; E04.1 Nontoxic single thyroid nodule; R53.1 Weakness
CPT/HCPCS: 36415; 80053; 85025

== ENCOUNTER → 2024-05-06 11:00 | Outpatient (REF) | payer OTHER, MEDICARE, SELFPAY ==
[2024-05-06 13:55] LABS: % Basophils 0.5 % (0-2); % Eosinophils 1.4 % (0-6); % Immature Granulocytes 0.8 % (0-0.5); % Lymphocytes 4.7 % (20.5-51.1); % Monocytes 2.8 % (1.7-9.3); % Neutrophils 89.8 % (42.2-75.2); Absolute Basophils 0.1 10^3/uL (0-0.2); Absolute Eosinophils 0.2 10^3/uL (0-0.7); Absolute Immature Granulocytes 0.1 10^3/uL (0-0.05); Absolute Lymphocytes 0.5 10^3/uL (1.2-3.4); Absolute Monocytes 0.3 10^3/uL (0.1-0.6); Absolute Neutrophils 9.8 10^3/uL (1.4-6.5); Hematocrit 32.8 % (39.0-52.0); Hemoglobin 9.9 g/dL (13.0-18.0); Mean Corp Hgb Conc. 30.2 g/dL (33.0-37.0); Mean Corpuscular Volume 112.7 fL (80.0-94.0); Nucleated Red Blood Cells % 0 % (-); Platelet Count 268 10^3/uL (130-400); Red Blood Cell Count 2.91 10^6/uL (4.70-6.10); Red Cell Dist. Width 16.3 % (11.5-14.5); White Blood Cell Count 10.9 10^3/uL (4.8-10.8)
[2024-05-06 15:02] LABS: ALT (SGPT) 32 U/L (0-50); AST (SGOT) 34 U/L (17-59); Albumin 2.9 g/dl (3.5-5.0); Alkaline Phosphatase 71 U/L (38-126); Blood Urea Nitrogen 35 mg/dl (9-20); Calcium 9.6 mg/dl (8.4-10.2); Carbon Dioxide 25 mmol/L (22-30); Chloride 116 mmol/L (98-107); Glucose 144 mg/dl (70-99); Potassium 3.9 mmol/L (3.5-5.1); Sodium 149 mmol/L (135-145); Total Bilirubin 0.4 mg/dl (0.2-1.3); Total Protein 5.3 g/dl (6.3-8.2); eGFR > 60.00
[2024-05-06 16:25] LABS: Urine Albumin Trace (Neg - Trace); Urine Bilirubin Negative (Negative); Urine Character Clear (Clear); Urine Color Yellow; Urine Glucose Negative (Negative); Urine Ketone Negative (Negative); Urine Leukocyte Negative (Negative); Urine Nitrite Negative (Negative); Urine Occult Blood Negative (Negative); Urine Specific Gravity 1.015 (<1.030); Urine Urobilinogen Negative (Neg - 1+)
== END ==
LOC: OLABP 11:00
PROVIDERS: ATTENDING PHYSICIAN Family Medicine
DX: I26.99 Other pulmonary embolism without acute cor pulmonale (principal); I63.9 Cerebral infarction, unspecified; E22.2 Syndrome of inappropriate secretion of antidiuretic hormone; E78.5 Hyperlipidemia, unspecified
CPT/HCPCS: 36415; 80053; 81003; 85025

== ENCOUNTER → 2024-05-13 11:33 | Outpatient (REF) | payer OTHER, MEDICARE, SELFPAY ==
[2024-05-13 12:27] LABS: Hematocrit 28.5 % (39.0-52.0); Hemoglobin 8.7 g/dL (13.0-18.0); Mean Corp Hgb Conc. 30.5 g/dL (33.0-37.0); Mean Corpuscular Volume 111.3 fL (80.0-94.0); Mean Platelet Volume 10.5 fL (7.4-10.4); Platelet Count 287 10^3/uL (130-400); Red Blood Cell Count 2.56 10^6/uL (4.70-6.10); Red Cell Dist. Width 15.7 % (11.5-14.5); White Blood Cell Count 9.6 10^3/uL (4.8-10.8)
[2024-05-13 12:38] LABS: Blood Urea Nitrogen 18 mg/dl (9-20); Calcium 9.3 mg/dl (8.4-10.2); Carbon Dioxide 25 mmol/L (22-30); Chloride 111 mmol/L (98-107); Glucose 104 mg/dl (70-99); Potassium 3.5 mmol/L (3.5-5.1); Sodium 143 mmol/L (135-145); eGFR > 60.00
== END ==
LOC: OLABP 11:33
PROVIDERS: ATTENDING PHYSICIAN Family Medicine
DX: B45.1 Cerebral cryptococcosis (principal); I82.403 Acute embolism and thrombosis of unspecified deep veins of lower extremity, bilateral; I26.99 Other pulmonary embolism without acute cor pulmonale; I82.811 Embolism and thrombosis of superficial veins of right lower extremity; I63.9 Cerebral infarction, unspecified; E22.2 Syndrome of inappropriate secretion of antidiuretic hormone; E78.5 Hyperlipidemia, unspecified; M50.30 Other cervical disc degeneration, unspecified cervical region; E04.1 Nontoxic single thyroid nodule; R53.1 Weakness
CPT/HCPCS: 36415; 80048; 85027

== ENCOUNTER → 2024-05-18 10:52 | Outpatient (REF) | payer OTHER, MEDICARE, SELFPAY ==
[2024-05-18 11:56] LABS: Hematocrit 33.5 % (39.0-52.0); Mean Corp Hgb Conc. 29.9 g/dL (33.0-37.0); Mean Corpuscular Hgb 33.1 pg (27.0-31.0); Mean Corpuscular Volume 110.9 fL (80.0-94.0); Mean Platelet Volume 9.9 fL (7.4-10.4); Platelet Count 377 10^3/uL (130-400); Red Blood Cell Count 3.02 10^6/uL (4.70-6.10); Red Cell Dist. Width 15.1 % (11.5-14.5); White Blood Cell Count 9.2 10^3/uL (4.8-10.8)
[2024-05-18 12:18] LABS: Blood Urea Nitrogen 21 mg/dl (9-20); Calcium 10.3 mg/dl (8.4-10.2); Carbon Dioxide 35 mmol/L (22-30); Chloride 115 mmol/L (98-107); Glucose 109 mg/dl (70-99); Sodium 151 mmol/L (135-145); eGFR > 60.00
== END ==
LOC: OLABP 10:52
PROVIDERS: ATTENDING PHYSICIAN Family Medicine
DX: B45.1 Cerebral cryptococcosis (principal); I82.403 Acute embolism and thrombosis of unspecified deep veins of lower extremity, bilateral; I26.99 Other pulmonary embolism without acute cor pulmonale; I82.B11 Acute embolism and thrombosis of right subclavian vein; E78.5 Hyperlipidemia, unspecified; M50.30 Other cervical disc degeneration, unspecified cervical region; E04.1 Nontoxic single thyroid nodule; R53.1 Weakness
CPT/HCPCS: 36415; 80048; 85027